=== PATIENT | female | born 1935 | race Caucasian/White ===

== ENCOUNTER 2017-12-16 18:54 | Inpatient (IN) | payer OTHER, MEDICAID ==
[2017-12-16] MEDS ORDERED: NS 1000 ML 1,000 ML IV ONE (19:10)
[2017-12-16] MEDS ORDERED: NS 1000 ML 1,000 ML ONE ×2 (19:13→20:39)
--- NOTE | 2017-12-16 19:21 | RAD ---
Examination: Portable AP chest History: Dehydration, weakness Comparison reference 12/10/2015 Findings: Continued normal heart size with grossly clear lungs and pleural spaces. Metallic clothing artifacts are projected over the right lower chest. No pneumothorax or pleural fluid. Impression: No acute process identified. Reported By:
[2017-12-16 19:29] LABS: BASOPHILS # (AUTO) 0.1 X10^3/uL (0.0-0.1); BASOPHILS % (AUTO) 0.4 % (0.2-1.0); EOSINOPHILS # (AUTO) 0.2 x10^3/uL (0.0-0.2); EOSINOPHILS % (AUTO) 0.8 % (0.9-2.9); HEMATOCRIT 46.7 % (36.0-47.0); HEMOGLOBIN 16.3 g/dL (12.0-16.0); LYMPHOCYTES # (AUTO) 1.6 X10^3/uL (1.3-2.9); LYMPHOCYTES % (AUTO) 8.7 % (21.0-51.0); MEAN CORPUSCULAR HEMOGLOBIN 30.5 pg (27.0-34.0); MEAN PLATELET VOLUME 7.6 fL (7.4-11.0); MONOCYTES # (AUTO) 1.9 x10^3/uL (0.3-0.8); MONOCYTES % (AUTO) 10.4 % (0.0-13.0); NEUTROPHILS # (AUTO) 14.4 x10^3/uL (2.2-4.8); NEUTROPHILS % (AUTO) 79.7 % (42.0-75.0); PLATELET COUNT 416 X10^3/uL (150.0-450.0); RED BLOOD COUNT 5.37 X10^6/uL (3.5-5.4); WHITE BLOOD COUNT 18.1 X10^3/uL (3.6-10.0)
[2017-12-16 19:44] LABS: ABG BASE EXCESS -6.8 mmol/L (-2.0-2.0)
[2017-12-16 19:45] LABS: ABG HCO3 17.3 mmol/L (22-26)
[2017-12-16 19:46] LABS: ABG ALLEN TEST POS
[2017-12-16 19:49] LABS: ALANINE AMINOTRANSFERASE 34 Units/L (12-78); ALBUMIN 3.9 g/dL (3.4-5.0); ALKALINE PHOSPHATASE 67 Units/L (46-116); ASPARTATE AMINO TRANSFERASE 20 Units/L (15-37); BLOOD UREA NITROGEN 69 mg/dL (7-18); CALCIUM 9.9 mg/dL (8.5-10.1); CHLORIDE 95 mmol/L (98-107); COR NA(FOR HYPERGLY) 127 mmol/L (136-145); CREATINE KINASE 241 Units/L (26-192); CREATINE KINASE MB 2.3 ng/mL (0-4.0); CREATININE 2.08 mg/dL (0.55-1.02); TOTAL PROTEIN 7.8 g/dL (6.4-8.2); TROPONIN I < 0.02 ng/mL (0-1.5); eGFR BLACK RACES 29 (>60); eGFR NON BLACK RACES 24 (>60)
[2017-12-16 19:50] LABS: SODIUM 125 mmol/L (136-145)
--- NOTE | 2017-12-16 20:17 | DR.GENAD ---
HPI - PCP Primary Care Physician: [email or web address] - HPI Comment HPI Comment: PATIENT HAD RECENT GASTROENTERITIS WITH POOR ORAL INTAKE. THIS HAS CAUSE HER TO BE INCREASING WEAK. TODAY CONFUSE WELL. NO FEVER REPORTED. - Complaint/Symptoms Chief Complaint Doctors Comments: HERE FROM [place] WITH GENERALIZE WEAKNESS AND AMS FOR ONE DAY. Chief Complaint:: weakness - Nurses notes reviewed Nurses Notes Review: Yes - Source History Provided: Patient, Family Member, Senior Care - Mode of Arrival Mode of Arrival: Wheelchair - Timing Onset of Chief Complaint: 12/16/17 Came on: Suddenly - Duration Duration: Constant Duration: Days - Severity Severity: Moderate PMH - PMH Past Medical History: Yes Past Medical History: Anemia, Arthritis, Asthma, CHF, Coronary Artery Disease, CVA, Depression, Diabetes, Dyslipidemia, GERD, Hypertension, Hypothyroidism Past Surgical History: Yes Surgical History: Other - Family History History of Family Medical Conditions: Yes Family Medical History: Hypertension - Social History Does any household member use tobacco: No Alcohol Use: None Do you use any recreational Drugs:: No Lives With: Family Lives Where: Home - infectious screening In the last 2 months have you had wt loss of >10#?: NO Have you had fever, night sweats or hemotysis?: No Have you traveled outside the country in the last 6 months?: No Isolation: Standard ROS - Review of Systems Constitutional: Weakness, Fatigue. negative: Chills, Fever Eyes: negative: Eye Pain, Discharge ENTM: negative: Ear Pain, Nose Discharge, Nose Congestion, Throat Pain Respiratoy: Moist Cough, Short of Breath, Wheezing. negative: Hemoptysis Cardiovascular: Chest Pain Gastrointestinal/Abdominal: Abdominal Pain Genitourinary: Discharge Neurological: No Symptoms Reported, Headache, Weakness, Dizziness, Other (AMS) Musculoskeletal: Joint Pain, Muscle Pain Integumentary: Dryness. negative: Juandice Hematologic/Lymphatic: Easy Bleeding, Easy Bruising Endocrine: No Symptoms Reported All Other Systems: Reviewed and Negative PE - Vital Signs Vitals: Temperature 96.7 F Pulse Rate [Left Brachial] 80 Pulse Rate 105 Respiratory Rate 18 Blood Pressure [Right Arm] 182/81 Blood Pressure [Left Arm] 171/73 Blood Pressure 159/60 O2 Sat by Pulse Oximetry 98 - General Limitations: Altered Mental Status General Appearance: Alert - Head Head Exam: Normal Inspection - Eyes Eye exam: PERRL, EOMI. negative: Scleral Icterus, Conjunctival Injection - ENT ENT Exam: Normal External Ear Exam External Ear Exam: Normal External Inspection TM/Canal Exam: Bilateral Normal Nose Exam: Normal Nose Exam Mouth Exam: Normal Inspection Throat Exam: Normal Inspection - Neck Neck Exam: Trachea Midline - Chest Chest Inspection: Symmetric Chest Wall Rise - Respiratory Respiratory Exam: Normal Lung Sounds Bilat Respiratory Exam: Bilateral Rhonchi, Lower Rhonchi - Cardiovascular Cardiovascular Exam: Regular Rate, Normal Rhythm, Normal Heart Sounds - Abdominal Exam Abdominal Exam: Normal Bowel Sounds, Soft. negative: Tenderness - Extremities Extremities Exam: Normal Capillary Refill. negative: Edema, Calf Tenderness - Back Back Exam: Paraspinal Tenderness - Neurologic Neurological Exam: Alert. negative: Oriented X3, Motor Sensory Deficit - Psychiatric Psychiatric Exam: Normal Affect, Normal Mood - Skin Skin Exam: Normal Color MDM - Additional Information Additional Information Obtained From: Family - Differential Diagnosis Differential Diagnosis: AMS, CVA, SEPSIS, UTI, DEHYDRATION Course - Treatment Treatment: SEE ORDERS. IV FLUID AND IV R INSULIN AND D50 FOR HYPERKALEMIA - Reevaluation 1st: Improved (POTASIUM DECREASING.) - Consultation Consultation Comments: DISCUSS PATIENT WITH DR. MAZA. HE WILL ADMIT PATIENT. - Education/Counseling Education/Counseling: Patient, Family, Education Educated On: Diagnosis ROR - Labs Reviewed Laboratory Results Reviewed?: Yes Result Diagrams: 12/17/17 05:43 12/17/17 05:43 Laboratory: WBC 18.1 X10^3/uL (3.6-10.0) H 12/16/17 19:22 RBC 5.37 X10^6/uL (3.5-5.4) 12/16/17 19:22 Hgb 16.3 g/dL (12.0-16.0) H 12/16/17 19:22 Hct 46.7 % (36.0-47.0) 12/16/17 19:22 MCV 87.0 fL (80.0-100.0) 12/16/17 19:22 MCH 30.5 pg (27.0-34.0) 12/16/17 19:22 MCHC 35.0 g/dL (33.0-35.0) 12/16/17 19:22 RDW 14.0 % (11.6-16.5) 12/16/17 19:22 Plt Count 416 X10^3/uL (150.0-450.0) 12/16/17 19: MPV 7.6 fL (7.4-11.0) 12/16/17 19: Neut % (Auto) 79.7 % (42.0-75.0) H 12/16/17 19: Lymph % (Auto) 8.7 % (21.0-51.0) L 12/16/17: [place] % (Auto) 10.4 % (0.0-13.0) 12/16/17: Eos % (Auto) 0.8 % (0.9-2.9) L 12/16/17: Baso % (Auto) 0.4 % (0.2-1.0) 12/16/17: Neut # (Auto) 14.4 x10^3/uL (2.2-4.8) H 12/16/17 19: Lymph # (Auto) 1.6 X10^3/uL (1.3-2.9) 12/16/17: [place] # (Auto) 1.9 x10^3/uL (0.3-0.8) H 12/16/17: Eos # (Auto) 0.2 x10^3/uL (0.0-0.2) 12/16/17: Baso # (Auto) 0.1 X10^3/uL (0.0-0.1) 12/16/17: Absolute Nucleated RBC 0.0 /100WBC 12/16/17: Sample Site Left radial 12/16/17 19:40 ABG pH 7.370 (7.35-7.45) 12/16/17 19:40 ABG pCO2 30.0 mmHg (35.0-45.0) L 12/16/17 19:40 ABG pO2 93.0 mmHg (80.0-100.0) 12/16/17 19:40 ABG HCO3 17.3 mmol/L (22-26) L* 12/16/17 19:40 ABG O2 Saturation 97.0 % (90-100) 12/16/17 19:40 ABG Base Excess -6.8 mmol/L (-2.0-2.0) L 12/16/17 19:40 Regan Test Pos 12/16/17 19:40 A-a Gradient 19.0 mmHg 12/16/17 19:40 FiO2 21.000 12/16/17 19:40 Blood Gas Comments Mary well jts 12/16/17 19:40 Sodium 125 mmol/L (136-145) L* 12/16/17 19:22 Corrected Sodium 127 mmol/L (136-145) L 12/16/17 19:22 Potassium 7.1 mmol/L (3.5-5.1) H* 12/16/17 19:22 Chloride 95 mmol/L (98-107) L 12/16/17 19:22 Carbon Dioxide 18.0 mmol/L (21-32) L 12/16/17 19:22 BUN 69 mg/dL (7-18) H 12/16/17 19:22 Creatinine 2.08 mg/dL (0.55-1.02) H 12/16/17 19:22 Est GFR (MDRD) Af Amer 29 (>60) L 12/16/17 19:22 Est GFR (MDRD) Non-Af 24 (>60) L 12/16/17 19:22 Glucose 195 mg/dL (65-99) H 12/16/17 19:22 Lactic Acid 2.7 mmol/L (0.4-2.0) H 12/16/17 20:05 Calcium 9.9 mg/dL (8.5-10.1) 12/16/17 19:22 Corrected Calcium TNP 12/16/17 19:22 Total Bilirubin 0.40 mg/dL (0.2-1.0) 12/16/17 19:22 AST 20 Units/L (15-37) 12/16/17 19:22 ALT 34 Units/L (12-78) 12/16/17 19:22 Alkaline Phosphatase 67 Units/L (46-116) 12/16/17 19:22 Creatine Kinase 241 Units/L (26-192) H 12/16/17 19:22 CK-MB (CK-2) 2.3 ng/mL (0-4.0) 12/16/17 19:22 CK/CKMB % Calc 1.0 % (<4) 12/16/17 19:22 Troponin I < 0.02 ng/mL (0-1.5) 12/16/17 19:22 Total Protein 7.8 g/dL (6.4-8.2) 12/16/17 19: Albumin 3.9 g/dL (3.4-5.0) 12/16/17 19: Globulin 3.9 g/dL (2.5-4.5) 12/16/17: Albumin/Globulin Ratio 1.0 Ratio (1.1-2.1) L 12/16/17:22 Specimen Type Catherized urine 12/16/17 20:38 Urine Color Yellow (YELLOW) 12/16/17 20:38 Urine Appearance Slightly hazy (CLEAR) 12/16/17 20:38 Urine pH 6.5 (5.0 - 8.0) 12/16/17 20:38 Ur Specific [place] 1.015 (1.000-1.030) 12/16/17 20:38 Urine Protein 2+ (NEGATIVE) 12/16/17 20:38 Urine Glucose (UA) 3+ (NEGATIVE) 12/16/17 20:38 Urine Ketones Negative (NEGATIVE) 12/16/17 20:38 Urine Occult Blood Negative (NEGATIVE) 12/16/17 20:38 Urine Nitrite Negative (NEGATIVE) 12/16/17 20:38 Urine Bilirubin Negative (NEGATIVE) 12/16/17 20:38 Urine Urobilinogen Normal (NORMAL) 12/16/17 20:38 Ur Leukocyte Esterase 2+ (NEGATIVE) 12/16/17 20:38 Urine RBC None seen /HPF (NONE SEEN) 12/16/17 20:38 Urine WBC 6-8 /HPF (NONE SEEN) 12/16/17 20:38 Ur Squamous Epith Cells Moderate /HPF (NEGATIVE) 12/16/17 20:38 Urine Bacteria 1+ /HPF (NEGATIVE) 12/16/17 20:38 Ur Culture Indicated? Yes/culture set up 12/16/17 20:38 Acetone, Semi-Quant Negative (NEGATIVE) 12/16/17 19:22 - XRAY XRAY Interpreted by: Radiologist XRAY Findings: REPORT DISCUSS WITH FAMILY. - EKG Rhythm: NSR - Diagnosis Discharge Problem: Hyperkalemia, Hyponatremia, Dehydration, Renal insufficiency Hypertension Qualifiers: Hypertension type: essential hypertension Qualified Code(s): I10 - Essential ( primary) hypertension - Discharge Plan Disposition: 09 ADMITTED INPATIENT Condition: Stable - Follow ups/Referrals - Instructions
--- NOTE | 2017-12-16 20:34 | CT ---
CT HEAD WITHOUT CONTRAST CLINICAL HISTORY: 82-year-old female acting a abnormally. COMPARISON: CT head 11/04/2015. TECHNIQUE: Multiple, non-contrasted axial CT images were obtained from the skull base to the cranial vertex. Coronal and sagittal reformats were performed. FINDINGS: There are no abnormal intra- or extra-axial fluid collections, midline shift, or mass effec t. Rice-white differentiation is normal. Partially empty sella. Global cortical involutional changes are present that are advanced for the patient's stated age. Re-demonstration of large cystic structur e within the posterior fossa with near-complete dysgenesis of the cerebellum. The ventricular system is mildly enlarged but commensurate with the degree of sulcal prominence. Periventricular and suprave ntricular white matter hypodensity is present that is nonspecific in appearance, but most likely to r epresent microvascular ischemic changes. Severe atherosclerotic vascular calcification is present wit hin the carotid siphons and distal vertebral arteries. The paranasal sinuses, mastoid air cells, and tympanic spaces are clear. Bilateral lens implants. IMPRESSION: 1. No definite evidence of an acute intracranial process. If clinical concern persists for acute stro ke, consider MRI/MRA brain. 2. Moderate microvascular white matter ischemic changes, with associated volume loss. 3. 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 Reported By:
[2017-12-16] MEDS: NS 1000 ML 1,000 ML IV SCH (20:39)
[2017-12-16 20:51] LABS: BILIRUBIN,URINE NEGATIVE (NEGATIVE); BLOOD/HEMOGLOBIN,URINE NEGATIVE (NEGATIVE); GLUCOSE, URINE 3+ (NEGATIVE); KETONES,URINE NEGATIVE (NEGATIVE); LEUKOCYTE ESTERASE ,URINE 2+ (NEGATIVE); NITRITES,URINE NEGATIVE (NEGATIVE); PH,URINE 6.5 (5.0 - 8.0); PROTEIN,URINE 2+ (NEGATIVE); UROBILINOGEN,URINE NORMAL (NORMAL)
[2017-12-16 21:01] LABS: APPEARANCE,URINE SLIGHTLY HAZY (CLEAR); COLOR,URINE YELLOW (YELLOW); RBC,URINE NONE SEEN /HPF (NONE SEEN)
[2017-12-16 21:02] LABS: BACTERIA,URINE 1+ /HPF (NEGATIVE); SQUAMOUS EPITHELIAL CELL,UR MODERATE /HPF (NEGATIVE)
[2017-12-16] MEDS ORDERED: D50W ABBOJECT SYR IV ONE (21:03)
[2017-12-16] MEDS ORDERED: HumuLIN R IV ONE (21:05)
[2017-12-16] MEDS ORDERED: HumuLIN R ONE (21:08)
[2017-12-16] MEDS ORDERED: D50W ABBOJECT SYR ONE (21:08)
[2017-12-16] MEDS ORDERED: ROCEPHIN 1 GM IV PREMIX 1 GM/50 ML IV.SOLN. IV ONE ×2 (21:47→22:06)
[2017-12-16] MEDS: ULTRAM PO PRN (23:34)
[2017-12-17 01:10] VITALS: BMI 25.4
[2017-12-17] MEDS: NS 1000 ML 1,000 ML IV SCH ×4 (05:20→17:47)
[2017-12-17] MEDS: APRESOLINE TAB 25 MG PO SCH ×3 (05:23→23:59)
[2017-12-17 05:57] LABS: BASOPHILS # (AUTO) 0.1 X10^3/uL (0.0-0.1); BASOPHILS % (AUTO) 0.6 % (0.2-1.0); EOSINOPHILS # (AUTO) 0.2 x10^3/uL (0.0-0.2); EOSINOPHILS % (AUTO) 1.2 % (0.9-2.9); HEMATOCRIT 40.9 % (36.0-47.0); HEMOGLOBIN 14.4 g/dL (12.0-16.0); LYMPHOCYTES # (AUTO) 2.1 X10^3/uL (1.3-2.9); LYMPHOCYTES % (AUTO) 13.9 % (21.0-51.0); MEAN CORPUSCULAR HEMOGLOBIN 30.6 pg (27.0-34.0); MEAN CORPUSCULAR HGB CONC 35.2 g/dL (33.0-35.0); MEAN PLATELET VOLUME 7.5 fL (7.4-11.0); MONOCYTES % (AUTO) 13.6 % (0.0-13.0); NEUTROPHILS # (AUTO) 10.5 x10^3/uL (2.2-4.8); NEUTROPHILS % (AUTO) 70.7 % (42.0-75.0); PLATELET COUNT 323 X10^3/uL (150.0-450.0); RED BLOOD COUNT 4.71 X10^6/uL (3.5-5.4); RED CELL DISTRIBUTION WIDTH 14.2 % (11.6-16.5); WHITE BLOOD COUNT 14.9 X10^3/uL (3.6-10.0)
[2017-12-17 06:18] LABS: ALANINE AMINOTRANSFERASE 31 Units/L (12-78); ALBUMIN 3.2 g/dL (3.4-5.0); ALKALINE PHOSPHATASE 54 Units/L (46-116); ASPARTATE AMINO TRANSFERASE 27 Units/L (15-37); BLOOD UREA NITROGEN 57 mg/dL (7-18); CALCIUM 8.6 mg/dL (8.5-10.1); CARBON DIOXIDE 18.3 mmol/L (21-32); CHLORIDE 102 mmol/L (98-107); CKMB % 0.6 % (<4); COR CA(FOR HYPOALB) 9.2 mg/dL (8.5-10.1); COR NA(FOR HYPERGLY) 131 mmol/L (136-145); CREATINE KINASE 647 Units/L (26-192); CREATINE KINASE MB 3.9 ng/mL (0-4.0); CREATININE 1.31 mg/dL (0.55-1.02); MAGNESIUM 2.2 mg/dL (1.7-2.9); SODIUM 131 mmol/L (136-145); TOTAL PROTEIN 6.6 g/dL (6.4-8.2); TROPONIN I < 0.02 ng/mL (0-1.5); eGFR BLACK RACES 50 (>60); eGFR NON BLACK RACES 41 (>60)
[2017-12-17] MEDS: ROCEPHIN VIAL 1 GM 1 GM in NS 100 ML IV + SPIKE MINIBAG* 100 ML IV SCH ×3 (09:04→15:42)
[2017-12-17] MEDS ORDERED: ZOFRAN TAB 4 MG PO PRN (09:35)
[2017-12-17] MEDS ORDERED: ULTRAM PO PRN (09:35)
[2017-12-17] MEDS ORDERED: GLUCOPHAGE ONE ×2 (10:22→20:02)
[2017-12-17] MEDS: ARTIFICIAL TEARS DROPS EACHEYE SCH ×3 (10:43→22:37)
[2017-12-17] MEDS: SYNTHROID 50 mcg TAB PO SCH (10:44)
[2017-12-17] MEDS: CATAPRES TAB 0.3 MG PO SCH (10:44)
[2017-12-17] MEDS: VITAMIN C PO SCH ×2 (10:44→20:59)
[2017-12-17] MEDS: COLACE CAP 100 MG PO SCH ×2 (10:44→20:58)
[2017-12-17] MEDS: TRICOR TAB 48 MG PO SCH (10:44)
[2017-12-17] MEDS: CITRACAL + VITAMIN D PO SCH (10:44)
[2017-12-17] MEDS: GLUCOPHAGE PO SCH ×2 (10:44→20:58)
[2017-12-17] MEDS: JANUVIA PO SCH (10:45)
[2017-12-17] MEDS: MIRALAX POWDER (1 DOSE 17GM) PO SCH (10:45)
[2017-12-17] MEDS: NORVASC TAB 5 MG PO SCH (10:45)
[2017-12-17] MEDS: MYLICON TAB 80 MG CHEW PO SCH ×2 (10:45→20:59)
[2017-12-17 11:34] LABS: CKMB % 0.6 % (<4); CREATINE KINASE 529 Units/L (26-192); CREATINE KINASE MB 3.3 ng/mL (0-4.0); TROPONIN I < 0.02 ng/mL (0-1.5)
[2017-12-17] MEDS: CARDIZEM SR 120 MG PO SCH (20:59)
[2017-12-17] MEDS: LIPITOR TAB 20 MG PO SCH (20:59)
[2017-12-17] MEDS: LEVEMIR SC SCH (21:00)
[2017-12-17] MEDS: SNACK - Diabetic Appropriate PO SCH (21:33)
[2017-12-17] MEDS: TRAVATAN Z EACHEYE SCH (21:33)
[2017-12-18] MEDS: NS 1000 ML 1,000 ML IV SCH ×6 (03:00→23:06)
[2017-12-18] MEDS: CATAPRES TAB 0.3 MG PO SCH ×3 (04:12→20:40)
[2017-12-18] MEDS: QUESTRAN PO SCH ×2 (04:12→08:41)
[2017-12-18] MEDS: ARTIFICIAL TEARS DROPS EACHEYE SCH ×3 (05:15→23:06)
[2017-12-18] MEDS: APRESOLINE TAB 25 MG PO SCH ×3 (05:15→20:58)
[2017-12-18 05:38] LABS: BASOPHILS % (AUTO) 0.4 % (0.2-1.0); EOSINOPHILS # (AUTO) 0.1 x10^3/uL (0.0-0.2); EOSINOPHILS % (AUTO) 1.3 % (0.9-2.9); HEMATOCRIT 40.3 % (36.0-47.0); HEMOGLOBIN 13.8 g/dL (12.0-16.0); LYMPHOCYTES # (AUTO) 1.6 X10^3/uL (1.3-2.9); MEAN CORPUSCULAR HEMOGLOBIN 30.4 pg (27.0-34.0); MEAN CORPUSCULAR HGB CONC 34.1 g/dL (33.0-35.0); MEAN CORPUSCULAR VOLUME 89.1 fL (80.0-100.0); MEAN PLATELET VOLUME 8.1 fL (7.4-11.0); MONOCYTES # (AUTO) 1.4 x10^3/uL (0.3-0.8); MONOCYTES % (AUTO) 13.5 % (0.0-13.0); NEUTROPHILS # (AUTO) 7.4 x10^3/uL (2.2-4.8); NEUTROPHILS % (AUTO) 69.8 % (42.0-75.0); PLATELET COUNT 311 X10^3/uL (150.0-450.0); RED BLOOD COUNT 4.52 X10^6/uL (3.5-5.4); RED CELL DISTRIBUTION WIDTH 13.9 % (11.6-16.5); WHITE BLOOD COUNT 10.6 X10^3/uL (3.6-10.0)
[2017-12-18 06:03] LABS: ALANINE AMINOTRANSFERASE 26 Units/L (12-78); ALBUMIN 2.9 g/dL (3.4-5.0); ALKALINE PHOSPHATASE 53 Units/L (46-116); ASPARTATE AMINO TRANSFERASE 23 Units/L (15-37); BLOOD UREA NITROGEN 32 mg/dL (7-18); CALCIUM 7.9 mg/dL (8.5-10.1); CARBON DIOXIDE 19.4 mmol/L (21-32); CHLORIDE 103 mmol/L (98-107); COR CA(FOR HYPOALB) 8.8 mg/dL (8.5-10.1); COR NA(FOR HYPERGLY) 133 mmol/L (136-145); SODIUM 132 mmol/L (136-145); TOTAL PROTEIN 6.1 g/dL (6.4-8.2); eGFR BLACK RACES > 60 (>60); eGFR NON BLACK RACES > 60 (>60)
[2017-12-18] MEDS ORDERED: GLUCOPHAGE ONE ×2 (08:10→19:48)
[2017-12-18] MEDS: ROCEPHIN VIAL 1 GM 1 GM in NS 100 ML IV + SPIKE MINIBAG* 100 ML IV SCH (08:40)
[2017-12-18] MEDS: SYNTHROID 50 mcg TAB PO SCH (08:42)
[2017-12-18] MEDS: GLUCOPHAGE PO SCH ×2 (08:43→20:40)
[2017-12-18] MEDS: CITRACAL + VITAMIN D PO SCH (08:43)
[2017-12-18] MEDS: CARDIZEM SR 120 MG PO SCH ×2 (08:43→20:40)
[2017-12-18] MEDS: MYLICON TAB 80 MG CHEW PO SCH ×2 (08:43→20:40)
[2017-12-18] MEDS: JANUVIA PO SCH (08:43)
[2017-12-18] MEDS: TRICOR TAB 48 MG PO SCH (08:43)
[2017-12-18] MEDS: NORVASC TAB 5 MG PO SCH (08:43)
[2017-12-18] MEDS: COLACE CAP 100 MG PO SCH ×2 (08:43→20:39)
[2017-12-18] MEDS: VITAMIN C PO SCH ×2 (08:43→20:40)
[2017-12-18] MEDS: LEVEMIR SC SCH ×2 (08:44→20:34)
[2017-12-18] MEDS: MIRALAX POWDER (1 DOSE 17GM) PO SCH (08:44)
[2017-12-18] MEDS: SNACK - Diabetic Appropriate PO SCH (20:34)
[2017-12-18] MEDS: LIPITOR TAB 20 MG PO SCH (20:40)
[2017-12-18] MEDS: TRAVATAN Z EACHEYE SCH (20:41)
[2017-12-18] MEDS ORDERED: COUMADIN TAB 5 MG PO SCH (21:00)
[2017-12-19] MEDS: ULTRAM PO PRN ×3 (02:31→22:10)
[2017-12-19] MEDS: ARTIFICIAL TEARS DROPS EACHEYE SCH ×3 (05:16→22:09)
[2017-12-19] MEDS: APRESOLINE TAB 25 MG PO SCH ×3 (05:16→22:09)
[2017-12-19] MEDS: NS 1000 ML 1,000 ML IV SCH ×4 (05:16→20:12)
[2017-12-19 05:26] LABS: BASOPHILS # (AUTO) 0.1 X10^3/uL (0.0-0.1); BASOPHILS % (AUTO) 0.7 % (0.2-1.0); EOSINOPHILS # (AUTO) 0.2 x10^3/uL (0.0-0.2); EOSINOPHILS % (AUTO) 2.4 % (0.9-2.9); HEMATOCRIT 36.5 % (36.0-47.0); HEMOGLOBIN 12.7 g/dL (12.0-16.0); LYMPHOCYTES # (AUTO) 2.1 X10^3/uL (1.3-2.9); LYMPHOCYTES % (AUTO) 20.6 % (21.0-51.0); MEAN CORPUSCULAR HEMOGLOBIN 30.3 pg (27.0-34.0); MEAN CORPUSCULAR HGB CONC 34.7 g/dL (33.0-35.0); MEAN CORPUSCULAR VOLUME 87.4 fL (80.0-100.0); MEAN PLATELET VOLUME 7.8 fL (7.4-11.0); MONOCYTES # (AUTO) 1.5 x10^3/uL (0.3-0.8); MONOCYTES % (AUTO) 14.7 % (0.0-13.0); NEUTROPHILS # (AUTO) 6.3 x10^3/uL (2.2-4.8); NEUTROPHILS % (AUTO) 61.6 % (42.0-75.0); PLATELET COUNT 320 X10^3/uL (150.0-450.0); RED BLOOD COUNT 4.17 X10^6/uL (3.5-5.4); RED CELL DISTRIBUTION WIDTH 13.8 % (11.6-16.5); WHITE BLOOD COUNT 10.2 X10^3/uL (3.6-10.0)
[2017-12-19 05:59] LABS: ALANINE AMINOTRANSFERASE 22 Units/L (12-78); ALBUMIN 2.6 g/dL (3.4-5.0); ALKALINE PHOSPHATASE 45 Units/L (46-116); ASPARTATE AMINO TRANSFERASE 18 Units/L (15-37); BLOOD UREA NITROGEN 19 mg/dL (7-18); CALCIUM 7.4 mg/dL (8.5-10.1); CARBON DIOXIDE 18.9 mmol/L (21-32); CHLORIDE 104 mmol/L (98-107); COR CA(FOR HYPOALB) 8.5 mg/dL (8.5-10.1); CREATININE 0.72 mg/dL (0.55-1.02); SODIUM 134 mmol/L (136-145); TOTAL PROTEIN 5.5 g/dL (6.4-8.2); eGFR BLACK RACES > 60 (>60); eGFR NON BLACK RACES > 60 (>60)
[2017-12-19] MEDS ORDERED: GLUCOPHAGE ONE ×2 (08:08→21:56)
[2017-12-19] MEDS: ROCEPHIN VIAL 1 GM 1 GM in NS 100 ML IV + SPIKE MINIBAG* 100 ML IV SCH (08:54)
[2017-12-19] MEDS: SYNTHROID 50 mcg TAB PO SCH (08:55)
[2017-12-19] MEDS: QUESTRAN PO SCH (08:55)
[2017-12-19] MEDS: MIRALAX POWDER (1 DOSE 17GM) PO SCH (08:55)
[2017-12-19] MEDS: VITAMIN C PO SCH ×2 (08:56→22:08)
[2017-12-19] MEDS: COLACE CAP 100 MG PO SCH ×2 (08:56→22:06)
[2017-12-19] MEDS: CARDIZEM SR 120 MG PO SCH ×2 (08:56→22:05)
[2017-12-19] MEDS: JANUVIA PO SCH (08:56)
[2017-12-19] MEDS: TRICOR TAB 48 MG PO SCH (08:56)
[2017-12-19] MEDS: GLUCOPHAGE PO SCH ×2 (08:56→22:07)
[2017-12-19] MEDS: CATAPRES TAB 0.3 MG PO SCH ×2 (08:56→22:06)
[2017-12-19] MEDS: NORVASC TAB 5 MG PO SCH (08:56)
[2017-12-19] MEDS: CITRACAL + VITAMIN D PO SCH (08:56)
[2017-12-19] MEDS: LEVEMIR SC SCH ×2 (08:57→22:07)
[2017-12-19] MEDS: MYLICON TAB 80 MG CHEW PO SCH ×2 (08:57→22:08)
--- NOTE | 2017-12-19 15:48 | DR.H&P ---
H&P - History & Physical for Day of: H&P Date: 12/16/17 - Chief Complaint Chief Complaint: ALTERED MENTAL STATUS, GENERALIZED WEAKNESS - Allergies Allergies/Adverse Reactions: Allergies Allergy/AdvReac Type Severity Reaction Status Date / Time tuberculin,PPD,multi-puncture Allergy Verified 12/16/17 20:21 - History of Present Illness History of Present Illness: IS A 82 YEAR OLD PATIENT OF OURS WHO RESIDES AT [facility]. SHE PRESENTED TO THE ER FROM THE CARE HOME WITH STAFF REPORTING THAT PATIENT HAS HAD GENERALIZED WEAKNESS AND ALTERED MENTAL STATUS FOR ONE DAY. STAFF REPORTS THAT PATIENT RECENTLY HAD GASTROENTERITIS AND HAS HAD DECREASED ORAL INTAKE. ASSOCIATED SYMPTOMS INCLUDE FATIGUE, COUGH, AND SHORTNESS OF BREATH. ON ARRIVAL TO THE ER, VITALS WERE 96.7- 105-16-96%-159/60. LABS WERE OBTAINED. ABNORMAL LAB VALUES INCLUDE THE FOLLOWING WBC 10.2, INR 1.59, SODIUM 134, CARBON DIOXIDE 18.9, BUN 19, CALCIUM 7.4, ALK PHOS 45, TOTAL PROTEIN 5.5, ALBUMIN 2.6. URINALYSIS REVEALS WBC 5-8, RBC NONE, LEUKOCYTES 2+, BACTERIA 1+, PROTEIN 2+. AN ABG WAS OBTAINED AND REVEALED PH 7.370, PC02 30, P02 93, HC03 17.3, BASE EXCESS -6.8. CHEST XRAY OBTAINED AND REVEALED NO ACUTE CHEST PROCESS IDENTIFIED. BRAIN CT REPORTED NO DEFINITE EVIDENCE OF AN ACUTE INTRACRANIAL PROCESS. MODERATED MICROVASCULAR WHITE MATTER ISCHEMIC CHANGES, WITH ASSOCIATED VOLUME LOSS. STABLE, CHRONIC CYSTIC LESION WITHIN THE POSTERIOR CREANIAL FOSSA WITH NEAR COMPLETE DYSGENESIS OF THE CEREBELLUM, LIKELY ARACHNOID CYST. SHE WAS STARTED ON NORMAL SALINE AT 150ML/HR AND ROCEPHIN 1GM IV DAILY. WE PLAN TO FOLLOW UP WITH AM LABS AND CONTINUE TO MONITOR PATIENT. - Past Medical History Past Medical History: Anemia, Arthritis, Asthma, CHF, Coronary Artery Disease, CVA, Depression, Diabetes, Dyslipidemia, GERD, Hypertension, Hypothyroidism Additional Medical History: DVT, Sleep Apnea, Depression, Chronic Sinusitis, Allergic Rhinitis, Constipation, Edema, UTI's, Pneumonia, Arthritis, Cataracts, Osteoporosis, Glaucoma, Ear Infections, Gastrointestinal Ulcer, Cardiac Arrhythmia, Muscle Weakness, Osteoporsis, Restless leg syndrome - Past Surgical History Surgical History: Other Additional Surgical History: Sinus surgery - Family History Family Medical History: Hypertension - Social History Does any household member use tobacco: No Alcohol Use: None Drug Use: None - Medications Home Medications: Aluminum & Magnesium Hydroxide [MAALOX or MYLANTA SUSP *] 30 ml PO Q4H PRN 12/16 [History Confirmed 12/16/17] Amlodipine Besylate [NORVASC 5 MG *] 5 mg PO DAILY 12/16/17 [History Confirmed 12/16/17] Fenofibrate [Tricor Tab 48 mg] 54 mg PO DAILY 12/16/17 [History Confirmed ] Lisinopril [Lisinopril] 1 tab PO BID 12/16/17 [History Confirmed 12/16/17] Ondansetron HCl [Zofran Tab 4 mg] 4 mg PO Q8H PRN 12/16/17 [History Confirmed ] Venlafaxine HCl Ext Rel [Effexor Xr 37.5 mg Cap] 37.5 mg PO DAILY 12/16/17 [ History Confirmed 12/16/17] Warfarin Sodium [Coumadin] 5 mg PO DAILY 12/16/17 [History Confirmed 12/16/17] - Review of Systems Constitutional: Weakness, Malaise Eyes: denies: No Symptoms Reported, See HPI, Pain, Vision Change, Conjunctivae Inflammation, Eyelid Inflammation, Redness, Other ENT: denies: No Symptoms Reported, See HPI, Ear Pain, Ear Discharge, Nose Pain, Nose Discharge, Nose Congestion, Mouth Pain, Mouth Swelling, Throat Pain, Throat Swelling, Other Respiratory: Cough, Shortness of Breath Cardiovascular: Chest Pain Gastrointestinal: Abdominal Pain Genitourinary: No Symptoms Reported. denies: See HPI, Dysuria, Frequency, Incontinence, Hematuria, Retention, Other Musculoskeletal: Other (GENERALIZED WEAKNESS ) Skin: No Symptoms Reported. denies: See HPI, Rash, Lesions, Jaundice, Bruising , Wound, Ecchymosis, Other Neurological: Weakness - Physical Exam Vital Signs: Temperature 97.5 F Pulse Rate [Left Brachial] 70 Pulse Rate 105 Respiratory Rate 23 Blood Pressure [Right Arm] 182/81 Blood Pressure [Left Arm] 162/70 Blood Pressure 159/60 O2 Sat by Pulse Oximetry 98 Oriented: Person Eyes: Normal. negative: Blurred Vision, Diplopia, Discharge, Pain, Redness, Photophobia, Other Ear: Normal. negative: Right, Left, Swelling, Ecchymosis, Hemotypanum, Abrasion , Laceration Nose: Normal Throat: Normal Respiratory: Wheezes Throughout Cardiovascular: Normal. negative: S3, S4, Murmur : Normal Auscultation: Bowel Sounds: Normal Palpation: Normal Tenderness: Suprapubic, Mild. negative: Rebound, Guarding, Rigidity Skin: Normal Musculoskeletal: Normal Psychiatric: Other (CONFUSION ) Mood Description: Calm Affect: Normal Speech Pattern: Appropriate - Assessment/Plan (1) Urinary tract infection Qualifiers: Urinary tract infection type: acute cystitis Hematuria presence: without hematuria Qualified Code(s): N30.00 - Acute cystitis without hematuria Status: Acute Plan: ROCEPHIN 1GM IV DAILY, NORMAL SALINE AT 150ML/HR, CONTINUE TO MONITOR (2) Dehydration Status: Acute Plan: NORMAL SALINE AT 150ML/HR, CONTINUE TO MONITOR (3) Hyperkalemia Status: Acute Plan: NORMAL SALINE AT 150ML/HR, CONTINUE TO MONITOR (4) Hyponatremia Status: Acute Plan: NORMAL SALINE AT 150ML/HR, CONTINUE TO MONITOR (5) Renal insufficiency Status: Acute Plan: NORMAL SALINE AT 150ML/HR, CONTINUE TO MONITOR
[2017-12-19] MEDS: SNACK - Diabetic Appropriate PO SCH (20:13)
[2017-12-19] MEDS: LIPITOR TAB 20 MG PO SCH (22:08)
[2017-12-19] MEDS: TRAVATAN Z EACHEYE SCH (22:09)
[2017-12-20] MEDS: TRAVATAN Z EACHEYE SCH (01:45)
[2017-12-20] MEDS: NS 1000 ML 1,000 ML IV SCH ×4 (03:39→17:01)
[2017-12-20] MEDS: ARTIFICIAL TEARS DROPS EACHEYE SCH ×2 (05:48→13:37)
[2017-12-20] MEDS: APRESOLINE TAB 25 MG PO SCH ×2 (05:48→13:45)
[2017-12-20 06:25] LABS: BASOPHILS # (AUTO) 0.1 X10^3/uL (0.0-0.1); BASOPHILS % (AUTO) 0.7 % (0.2-1.0); EOSINOPHILS # (AUTO) 0.3 x10^3/uL (0.0-0.2); EOSINOPHILS % (AUTO) 3.1 % (0.9-2.9); HEMOGLOBIN 12.6 g/dL (12.0-16.0); LYMPHOCYTES % (AUTO) 21.3 % (21.0-51.0); MEAN CORPUSCULAR HEMOGLOBIN 30.7 pg (27.0-34.0); MEAN CORPUSCULAR HGB CONC 35.1 g/dL (33.0-35.0); MEAN CORPUSCULAR VOLUME 87.3 fL (80.0-100.0); MEAN PLATELET VOLUME 7.9 fL (7.4-11.0); MONOCYTES # (AUTO) 1.1 x10^3/uL (0.3-0.8); MONOCYTES % (AUTO) 12.1 % (0.0-13.0); NEUTROPHILS # (AUTO) 5.8 x10^3/uL (2.2-4.8); NEUTROPHILS % (AUTO) 62.8 % (42.0-75.0); PLATELET COUNT 325 X10^3/uL (150.0-450.0); RED BLOOD COUNT 4.12 X10^6/uL (3.5-5.4); RED CELL DISTRIBUTION WIDTH 13.5 % (11.6-16.5); WHITE BLOOD COUNT 9.2 X10^3/uL (3.6-10.0)
[2017-12-20 06:27] LABS: ALANINE AMINOTRANSFERASE 20 Units/L (12-78); ALBUMIN 2.6 g/dL (3.4-5.0); ALKALINE PHOSPHATASE 48 Units/L (46-116); ASPARTATE AMINO TRANSFERASE 18 Units/L (15-37); BLOOD UREA NITROGEN 11 mg/dL (7-18); CALCIUM 7.3 mg/dL (8.5-10.1); CARBON DIOXIDE 20.5 mmol/L (21-32); CHLORIDE 104 mmol/L (98-107); COR CA(FOR HYPOALB) 8.4 mg/dL (8.5-10.1); COR NA(FOR HYPERGLY) 135 mmol/L (136-145); CREATININE 0.73 mg/dL (0.55-1.02); SODIUM 133 mmol/L (136-145); TOTAL PROTEIN 5.7 g/dL (6.4-8.2); eGFR BLACK RACES > 60 (>60); eGFR NON BLACK RACES > 60 (>60)
[2017-12-20] MEDS ORDERED: GLUCOPHAGE ONE (08:01)
[2017-12-20] MEDS: COLACE CAP 100 MG PO SCH (08:15)
[2017-12-20] MEDS: MIRALAX POWDER (1 DOSE 17GM) PO SCH (08:15)
[2017-12-20] MEDS: CATAPRES TAB 0.3 MG PO SCH (08:16)
[2017-12-20] MEDS: SYNTHROID 50 mcg TAB PO SCH (08:16)
[2017-12-20] MEDS: GLUCOPHAGE PO SCH (08:16)
[2017-12-20] MEDS: VITAMIN C PO SCH (08:16)
[2017-12-20] MEDS: TRICOR TAB 48 MG PO SCH (08:17)
[2017-12-20] MEDS: CITRACAL + VITAMIN D PO SCH (08:17)
[2017-12-20] MEDS: NORVASC TAB 5 MG PO SCH (08:17)
[2017-12-20] MEDS: JANUVIA PO SCH (08:17)
[2017-12-20] MEDS: QUESTRAN PO SCH (08:17)
[2017-12-20] MEDS: ROCEPHIN VIAL 1 GM 1 GM in NS 100 ML IV + SPIKE MINIBAG* 100 ML IV SCH (08:18)
[2017-12-20] MEDS: MYLICON TAB 80 MG CHEW PO SCH (08:18)
[2017-12-20] MEDS: CARDIZEM SR 120 MG PO SCH (08:18)
[2017-12-20] MEDS: LEVEMIR SC SCH (08:23)
[2017-12-20] MEDS ORDERED: EFFEXOR XR 37.5 MG CAP PO SCH (09:00)
--- NOTE | 2017-12-20 09:26 | RAD ---
HISTORY: Shortness of breath Study: Chest AP portable Comparison: 12/16/2017 Findings: The trachea is midline. The cardiac silhouette is unremarkable. The lungs are clear without focal i nfiltrate or effusion. The bony thorax is unremarkable. IMPRESSION: 1. No acute cardiopulmonary disease. Reported By:
--- NOTE | 2017-12-20 11:05 | PCM.PROG ---
Progress Note - Progress Note for Day of Date: 12/17/17 - Subjective Subjective: IS BEING TREATED FOR DEHYDRATION, HYPERKALEMIA, AND A URINARY TRACT INFECTION. TODAY, SHE IS LYING IN BED WITH EYES CLOSED. FAMILY AT BEDSIDE. PATIENT AWAKENS AND RESPONDS TO VERBAL STIMULI, BUT CONTINUES WITH CONFUSION. SHE IS NOTED WITH COMPLAINTS OF ABDOMINAL PAIN. ON EXAMINATION, HEART IS REGULAR IN RATE AND RHYTHM. BILATERAL LUNGS ARE NOTED WITH DIMINISHED LUNG SOUNDS THROUGHOUT. ABDOMEN IS ROUND, SOFT, AND NOTED WITH SUPRAPUBIC TENDERNESS ON PALPATION. NORMAL BOWEL SOUNDS NOTED IN ALL QUADRANTS. HER VITALS THIS MORNING ARE 97.0-87-28-97%-171/71. LABS WERE OBTAINED. ABNORMAL LAB VALUES INCLUDE THE FOLLOWING: WBC 14.9, INR 3.27, SODIUM 131, POTASSIUM 5.4, CARBON DIOXIDE 18.3, BUN 57, CREATININE 1.31, GLUCOSE 111, CREATINE KINASE 647, ALBUMIN 3.2. BLOOD CULTURES AND URINE CULTURES ARE PENDING. TODAY, WE WILL CONTINUE WITH CURRENT IV FLUIDS AND ANTIBIOTICS FOR URINARY TRACT INFECTION. WE PLAN TO FOLLOW UP WITH AM LABS AND CONTINUE TO MONITOR PATIENT. - Past Medical Family Social History Past Med/Fam/Surg Hx: No changes since H&P Allergies: Allergies tuberculin,PPD,multi-puncture Allergy (Verified 12/16/17 20:21) - Review of Systems ROS: No change since H&P - Vital Signs and I&O's Vital Signs: Temperature 97.8 F Pulse Rate [Left Brachial] 69 Pulse Rate 105 Respiratory Rate 17 Blood Pressure [Right Arm] 182/81 Blood Pressure [Left Arm] 132/87 Blood Pressure 159/60 O2 Sat by Pulse Oximetry 99 Intake and Output: Intake & Output 12/17/17 12/18/17 12/19/17 12/20/17 11:59 11:59 11:59 11:59 Intake Total 2105 4266 3926 5569 Output Total 825 3200 3900 5625 Balance 1280 1066 26 -56 - Physical Exam Oriented: Person Eyes: Normal. negative: Blurred Vision, Diplopia, Discharge, Pain, Redness, Photophobia, Other Ear: Normal. negative: Right, Left, Swelling, Ecchymosis, Hemotypanum, Abrasion , Laceration Nose: Normal Throat: Normal Respiratory: Diminished Cardiovascular: Normal. negative: S3, S4, Murmur : Normal Auscultation: Bowel Sounds: Normal Palpation: Normal Tenderness: Suprapubic, Mild. negative: Rebound, Guarding, Rigidity Skin: Normal Musculoskeletal: Normal Psychiatric: Other (CONFUSION ) Mood Description: Calm Affect: Normal Speech Pattern: Clear, Appropriate - Laboratory and Diagnostics Result Diagrams: 12/20/17 05:41 12/20/17 05:41 Labs: 12/16/17 20:38 Urine,Catheterized Urine Culture - Final 12/16/17 20:05 Blood Blood Culture - Preliminary 12/16/17 19:58 Blood Blood Culture - Preliminary Laboratory WBC 9.2 X10^3/uL (3.6-10.0) 12/20/17 05:41 RBC 4.12 X10^6/uL (3.5-5.4) 12/20/17 05:41 Hgb 12.6 g/dL (12.0-16.0) 12/20/17 05:41 Hct 36.0 % (36.0-47.0) 12/20/17 05:41 MCV 87.3 fL (80.0-100.0) 12/20/17 05:41 MCH 30.7 pg (27.0-34.0) 12/20/17 05:41 MCHC 35.1 g/dL (33.0-35.0) H 12/20/17 05:41 RDW 13.5 % (11.6-16.5) 12/20/17 05:41 Plt Count 325 X10^3/uL (150.0-450.0) 12/20/17 05:41 MPV 7.9 fL (7.4-11.0) 12/20/17 05:41 Neut % (Auto) 62.8 % (42.0-75.0) 12/20/17 05:41 Lymph % (Auto) 21.3 % (21.0-51.0) 12/20/17 05:41 [place] % (Auto) 12.1 % (0.0-13.0) 12/20/17 05:41 Eos % (Auto) 3.1 % (0.9-2.9) H 12/20/17 05:41 Baso % (Auto) 0.7 % (0.2-1.0) 12/20/17 05:41 Neut # (Auto) 5.8 x10^3/uL (2.2-4.8) H 12/20/17 05:41 Lymph # (Auto) 2.0 X10^3/uL (1.3-2.9) 12/20/17 05:41 [place] # (Auto) 1.1 x10^3/uL (0.3-0.8) H 12/20/17 05:41 Eos # (Auto) 0.3 x10^3/uL (0.0-0.2) H 12/20/17 05:41 Baso # (Auto) 0.1 X10^3/uL (0.0-0.1) 12/20/17 05:41 Absolute Nucleated RBC 0.1 /100WBC 12/20/17 05:41 INR Target Range - 12/20/17 05:41 INR 1.24 (0.8-1.3) 12/20/17 05:41 Sample Site Left radial 12/16/17 19:40 ABG pH 7.370 (7.35-7.45) 12/16/17 19:40 ABG pCO2 30.0 mmHg (35.0-45.0) L 12/16/17 19:40 ABG pO2 93.0 mmHg (80.0-100.0) 12/16/17 19:40 ABG HCO3 17.3 mmol/L (22-26) L* 12/16/17 19:40 ABG O2 Saturation 97.0 % (90-100) 12/16/17 19:40 ABG Base Excess -6.8 mmol/L (-2.0-2.0) L 12/16/17 19:40 Regan Test Pos 12/16/17 19:40 A-a Gradient 19.0 mmHg 12/16/17 19:40 FiO2 21.000 12/16/17 19:40 Blood Gas Comments Mary well jts 12/16/17 19:40 Sodium 133 mmol/L (136-145) L 12/20/17 05:41 Corrected Sodium 135 mmol/L (136-145) L 12/20/17 05:41 Potassium 4.0 mmol/L (3.5-5.1) 12/20/17 05:41 Chloride 104 mmol/L (98-107) 12/20/17 05:41 Carbon Dioxide 20.5 mmol/L (21-32) L 12/20/17 05:41 BUN 11 mg/dL (7-18) 12/20/17 05:41 Creatinine 0.73 mg/dL (0.55-1.02) 12/20/17 05:41 Est GFR (MDRD) Af Amer > 60 (>60) 12/20/17 05:41 Est GFR (MDRD) Non-Af > 60 (>60) 12/20/17 05:41 Glucose 202 mg/dL (65-99) H 12/20/17 05:41 POC Glucose (mg/dL) 188 mg/dL (65-99) H 12/20/17 08:14 Lactic Acid 0.9 mmol/L (0.4-2.0) 12/17/17 08:35 Calcium 7.3 mg/dL (8.5-10.1) L 12/20/17 05:41 Corrected Calcium 8.4 mg/dL (8.5-10.1) L 12/20/17 05:41 Magnesium 2.2 mg/dL (1.7-2.9) 12/17/17 05:43 Total Bilirubin 0.20 mg/dL (0.2-1.0) 12/20/17 05:41 AST 18 Units/L (15-37) 12/20/17 05:41 ALT 20 Units/L (12-78) 12/20/17 05:41 Alkaline Phosphatase 48 Units/L (46-116) 12/20/17 05:41 Creatine Kinase 529 Units/L (26-192) H 12/17/17 11:05 CK-MB (CK-2) 3.3 ng/mL (0-4.0) 12/17/17 11:05 CK/CKMB % Calc 0.6 % (<4) 12/17/17 11:05 Troponin I < 0.02 ng/mL (0-1.5) 12/17/17 11:05 Total Protein 5.7 g/dL (6.4-8.2) L 12/20/17 05:41 Albumin 2.6 g/dL (3.4-5.0) L 12/20/17 05:41 Globulin 3.1 g/dL (2.5-4.5) 12/20/17 05:41 Albumin/Globulin Ratio 0.8 Ratio (1.1-2.1) L 12/20/17 05:41 Specimen Type Catherized urine 12/16/17 20:38 Urine Color Yellow (YELLOW) 12/16/17 20:38 Urine Appearance Slightly hazy (CLEAR) 12/16/17 20:38 Urine pH 6.5 (5.0 - 8.0) 12/16/17 20:38 Ur Specific [place] 1.015 (1.000-1.030) 12/16/17 20:38 Urine Protein 2+ (NEGATIVE) 12/16/17 20:38 Urine Glucose (UA) 3+ (NEGATIVE) 12/16/17 20:38 Urine Ketones Negative (NEGATIVE) 12/16/17 20:38 Urine Occult Blood Negative (NEGATIVE) 12/16/17 20:38 Urine Nitrite Negative (NEGATIVE) 12/16/17 20:38 Urine Bilirubin Negative (NEGATIVE) 12/16/17 20:38 Urine Urobilinogen Normal (NORMAL) 12/16/17 20:38 Ur Leukocyte Esterase 2+ (NEGATIVE) 12/16/17 20:38 Urine RBC None seen /HPF (NONE SEEN) 12/16/17 20:38 Urine WBC 6-8 /HPF (NONE SEEN) 12/16/17 20:38 Ur Squamous Epith Cells Moderate /HPF (NEGATIVE) 12/16/17 20:38 Urine Bacteria 1+ /HPF (NEGATIVE) 12/16/17 20:38 Ur Culture Indicated? Yes/culture set up 12/16/17 20:38 Acetone, Semi-Quant Negative (NEGATIVE) 12/16/17 19:22 - Plan (1) Urinary tract infection Status: Acute Qualifiers: Urinary tract infection type: acute cystitis Hematuria presence: without hematuria Qualified Code(s): N30.00 - Acute cystitis without hematuria Plan: ROCEPHIN 1GM IV DAILY, NORMAL SALINE AT 150ML/HR, CONTINUE TO MONITOR (2) Dehydration Status: Acute Plan: NORMAL SALINE AT 150ML/HR, CONTINUE TO MONITOR (3) Hyperkalemia Status: Acute Plan: NORMAL SALINE AT 150ML/HR, CONTINUE TO MONITOR (4) Hyponatremia Status: Acute Plan: NORMAL SALINE AT 150ML/HR, CONTINUE TO MONITOR (5) Renal insufficiency Status: Acute Plan: NORMAL SALINE AT 150ML/HR, CONTINUE TO MONITOR
[2017-12-20] MEDS ORDERED: BUTT CREAM (COMPOUND) ONE (12:09)
[2017-12-20] MEDS ORDERED: BUTT CREAM (COMPOUND) TOP PRN (12:13)
[2017-12-20] MEDS ORDERED: DULCOLAX SUPPOSITORY 10 MG RECTAL ONE ×2 (14:26→15:19)
[2017-12-20 18:10] VITALS: BP 175/77
== END 2017-12-20 19:05 | DRG 690 ==
LOC: ER 18:54 → ICU 22:19
PROVIDERS: ADMIT Obstetrics & Gynecology Obstetrics; ATTEND Internal Medicine
DX: N30.00 Acute cystitis without hematuria (principal); E86.0 Dehydration; R41.82 Altered mental status, unspecified; E87.5 Hyperkalemia; E87.1 Hypo-osmolality and hyponatremia; K52.89 Other specified noninfective gastroenteritis and colitis; N18.9 Chronic kidney disease, unspecified; R53.1 Weakness; I25.10 Atherosclerotic heart disease of native coronary artery without angina pectoris; R06.02 Shortness of breath; E78.2 Mixed hyperlipidemia; K21.9 Gastro-esophageal reflux disease without esophagitis; I12.9 Hypertensive chronic kidney disease with stage 1 through stage 4 chronic kidney disease, or unspecified chronic kidney disease; E03.8 Other specified hypothyroidism; R94.31 Abnormal electrocardiogram [ECG] [EKG]; M62.82 Rhabdomyolysis; R26.89 Other abnormalities of gait and mobility
CPT/HCPCS: 36415; 36600; 51702; 70450; 71045; 80053; 81001; 82009; 82550; 82553; 82803; 82947; 83605; 83735; 84132; 84484; 85025; 85610; 87040; 87086; 93005; 93041; 96365; 96374; 96375; 99284; 99285; A4222; 1956; J0696; J1815; J3490

== ENCOUNTER → 2017-12-25 | Outpatient (CLI) | payer OTHER, MEDICAID ==
[2017-12-20 18:10] VITALS: BP 175/77
--- NOTE | 2017-12-25 17:10 | RAD ---
HISTORY: Abdominal pain. Constipation. Study: Acute abdominal series Comparison: November 04, 2017. Findings: The trachea is midline. The cardiac silhouette is unremarkable. The lungs are clear without focal i nfiltrate or effusion. The bony thorax is unremarkable. Flat plate and upright evaluation of the abdomen demonstrates a nonspecific bowel gas pattern. There is moderate dilatation of several loops of colon in the right rosalba abdomen. There is mild gaseous dis tention of several loops of small bowel in the left rosalba abdomen. There is no evidence of obstruction or free air. No pathological soft tissue mass or calcification can be observed. The bony structure s are grossly intact. Note is made of an IVC filter in place. IMPRESSION: 1. No acute cardiopulmonary disease. 2. No evidence for acute abdominal pathology identified. Reported By:
== END ==
LOC: RAD 15:58
PROVIDERS: ATTEND Internal Medicine
DX: R10.84 Generalized abdominal pain (principal)
CPT/HCPCS: 74022

== ENCOUNTER → 2017-12-29 | Outpatient (CLI) | payer OTHER, MEDICAID ==
[2017-12-20 18:10] VITALS: BP 175/77
--- NOTE | 2017-12-29 10:45 | US ---
RIGHT UPPER QUADRANT ULTRASOUND HISTORY: RUQ pain Comparison: None Technique: Multiple stubbs scale and color flow Doppler images of the right upper quadrant were obtaine d. Findings: Overall study is limited by overlying bowel gas. The liver is hyperechoic. No focal mass. Small gall stones present. No pericholecystic fluid or gallbladder wall thickening. The technologist did not rep ort a positive sonographic Giullen's sign. The common bile duct measures 5 mm. The right kidney measures 9.8 cm. No hydronephrosis or renal masses. The pancreas IMPRESSION: 1. Gallstones without evidence of cholecystitis. 2. Hepatic steatosis. Reported By:
== END | disposition home or self-care (01) ==
LOC: RAD 08:58
PROVIDERS: ATTEND Internal Medicine
DX: Z01.818 Encounter for other preprocedural examination (principal); Z01.810 Encounter for preprocedural cardiovascular examination; R10.84 Generalized abdominal pain; K80.80 Other cholelithiasis without obstruction; K80.20 Calculus of gallbladder without cholecystitis without obstruction; E88.89 Other specified metabolic disorders
CPT/HCPCS: 76705; 93005; 93306

== ENCOUNTER → 2018-01-05 | Outpatient (CLI) | payer OTHER, MEDICAID ==
[2017-12-20 18:10] VITALS: BP 175/77
--- NOTE | 2018-01-05 14:13 | NM ---
HIDA SCAN WITH EJECTION FRACTION. HISTORY: Abdominal pain Comparison: None Technique: Multiple scintigraphic images of the abdomen were obtained the intravenous administration of 5.3 mCi of technetium labeled Choletec. Findings: Homogeneous uptake of radiotracer is seen throughout the liver. The intrabiliary ductal system is ob served normally. The common hepatic and common bile duct appear unremarkable with normal biliary-bow el transit. The gallbladder is observed to fill normally. IMPRESSION: 1. No evidence of cystic duct obstruction. Reported By:
== END ==
LOC: RAD 11:19
PROVIDERS: ATTEND Internal Medicine
DX: R10.84 Generalized abdominal pain (principal); R11.2 Nausea with vomiting, unspecified
CPT/HCPCS: 78226; A9537

== ENCOUNTER → 2018-01-07 | Outpatient (CLI) | payer OTHER, MEDICAID ==
[2017-12-20 18:10] VITALS: BP 175/77
--- NOTE | 2018-01-07 12:41 | VAS ---
Exam: Carotid Doppler exam History: 82-year-old female with hypertension. Dizziness and visual disturbance. Comparison: None Findings: Plaque is present in both common carotid arteries and carotid bulbs. On the right, peak systolic velocities in cm/sec of the right internal and common carotid arteries me asure 96 and 75. The greatest ICA/CCA ratio on the right is 1.3 On the left, peak systolic velocities in cm/sec of the left internal and common carotid artery measur e 104 and 88. The greatest ICA/CCA ratio on the left is 1.56 Antegrade flow is documented in patent vertebral arteries bilaterally. Impression: No hemodynamically significant carotid stenosis is seen on either side. Reported By:
== END | disposition home or self-care (01) ==
LOC: RAD 11:29
PROVIDERS: ATTEND Internal Medicine
DX: H53.8 Other visual disturbances (principal)
CPT/HCPCS: 93880

== ENCOUNTER → 2018-01-26 | Day surgery (SDC) | payer OTHER, MEDICAID ==
[~2018-01-26] MED LIST: ANCEF VIAL 1 GM ONE; DIPRIVAN VIAL ONE; FENTANYL INJ 100 mcg ONE; KETALAR ONE; MARCAINE 0.25% INJ ONE; NS 100 ML IV 100 ML IV ONE; NS 1000 ML 1,000 ML ONE; NS IRRIGATION 1000 ML 1,000 ML IR ONE; VERSED ONE; XYLOCAINE 1% and EPINEPHRINE 1:100,000 ONE; XYLOCAINE 2 % (PLAIN) ONE
[2018-01-26 09:41] LABS: BASOPHILS # (AUTO) 0.1 X10^3/uL (0.0-0.1); EOSINOPHILS # (AUTO) 0.2 x10^3/uL (0.0-0.2); EOSINOPHILS % (AUTO) 3.1 % (0.9-2.9); HEMATOCRIT 35.6 % (36.0-47.0); HEMOGLOBIN 12.6 g/dL (12.0-16.0); LYMPHOCYTES # (AUTO) 1.2 X10^3/uL (1.3-2.9); LYMPHOCYTES % (AUTO) 22.7 % (21.0-51.0); MEAN CORPUSCULAR HGB CONC 35.4 g/dL (33.0-35.0); MEAN CORPUSCULAR VOLUME 87.6 fL (80.0-100.0); MEAN PLATELET VOLUME 7.3 fL (7.4-11.0); MONOCYTES # (AUTO) 0.8 x10^3/uL (0.3-0.8); MONOCYTES % (AUTO) 15.1 % (0.0-13.0); NEUTROPHILS # (AUTO) 3.1 x10^3/uL (2.2-4.8); NEUTROPHILS % (AUTO) 58.1 % (42.0-75.0); PLATELET COUNT 264 X10^3/uL (150.0-450.0); RED BLOOD COUNT 4.06 X10^6/uL (3.5-5.4); RED CELL DISTRIBUTION WIDTH 14.2 % (11.6-16.5); WHITE BLOOD COUNT 5.4 X10^3/uL (3.6-10.0)
[2018-01-26 09:48] LABS: BLOOD UREA NITROGEN 12 mg/dL (7-18); CARBON DIOXIDE 26.2 mmol/L (21-32); CHLORIDE 101 mmol/L (98-107); COR NA(FOR HYPERGLY) 138 mmol/L (136-145); CREATININE 0.85 mg/dL (0.55-1.02); SODIUM 136 mmol/L (136-145); eGFR BLACK RACES > 60 (>60); eGFR NON BLACK RACES > 60 (>60)
--- NOTE | 2018-01-26 11:21 | OR.GENERIC ---
Post-Op Note Generic - Post-Op Note Operative Report: Date of Operation: January 26, 2018 Pre-Operative Diagnosis: Right gluteal abscess. Post-Operative Diagnosis: Right gluteal abscess. Procedure: Incision and drainage of right gluteal abscess (complex). Surgeon: Hugh Ma MD Anesthesia: Monitored anesthesia care and local. Specimen: Wound culture. Estimated blood loss: Minimal Complications: None Summary: The patient is an 82 year old female who presented with a right gluteal abscess. The patient underwent outpatient antibiotics without resolution. The patient was offered incision and drainage. The risk and benefits of the procedure including difficulty with anesthesia, bleeding, infection, scar formation, delayed healing, as well as recurrence were discussed with the patient. The patient understood these risks and requested the procedure. On January 26, 2018, the patient was brought to the operative theatre. A time out was performed verifying the patient and the procedure. After satisfactory induction of monitored anesthesia care, the left axillae was prepped with Chloraprep and draped in the usual fashion. Local anesthetic was infiltrated around the area of induration. A small core of skin was removed sharply. The abscess cavity was entered bluntly. Purulent drainage was noted. A culture was obtained and sent to microbiology. All loculations were disrupted bluntly. The abscess cavity was copiously irrigated. Next, the wound was packed with Iodoform. A sterile dressing was placed. The patient was awakened and taken to the recovery room in stable condition. There were no complications. All counts were correct.
[2018-01-26 11:51] VITALS: BP 172/73
== END | disposition home or self-care (01) ==
LOC: SURG1 08:29
PROVIDERS: ATTEND Student in an Organized Health Care Education/Training Program
PROC: 0H98XZZ Drainage of Buttock Skin, External Approach (ICD-10-PCS; principal; 2018-01-26 10:30)
DX: L02.31 Cutaneous abscess of buttock (principal); B95.62 Methicillin resistant Staphylococcus aureus infection as the cause of diseases classified elsewhere; Z79.01 Long term (current) use of anticoagulants
CPT/HCPCS: 36415; 80048; 85025; 85610; 85730; 87070; 87075; 87077; 87186; 87205; 99100; A4222; S0020; J0690; J2001; J2250; J3010; J3490

== ENCOUNTER 2018-02-02 07:56 | Day surgery (SDC) | payer OTHER, MEDICAID ==
[~2018-02-02 07:56] MED LIST changes: -DIPRIVAN VIAL ONE; -FENTANYL INJ 100 mcg ONE; -KETALAR ONE; -MARCAINE 0.25% INJ ONE; -NS IRRIGATION 1000 ML 1,000 ML IR ONE; -VERSED ONE; -XYLOCAINE 1% and EPINEPHRINE 1:100,000 ONE; -XYLOCAINE 2 % (PLAIN) ONE
[2018-02-02] MEDS ORDERED: XYLOCAINE 1% and EPINEPHRINE 1:100,000 ONE (07:57)
[2018-02-02] MEDS ORDERED: MARCAINE 0.25% INJ ONE (07:57)
[2018-02-02] MEDS ORDERED: MORPHINE SULFATE INJ 2 MG INJ ONE (08:24)
[2018-02-02] MEDS ORDERED: FENTANYL INJ 100 mcg ONE (08:24)
[2018-02-02] MEDS ORDERED: NS IRRIGATION 1000 ML 1,000 ML IR ONE ×2 (09:13→09:26)
[2018-02-02] MEDS ORDERED: BENADRYL INJ 50 MG VIAL IVP PRN (09:55)
[2018-02-02] MEDS ORDERED: DILAUDID INJ IVP PRN (09:55)
[2018-02-02] MEDS ORDERED: ZOFRAN INJ 4 MG VIAL IVP PRN (09:55)
[2018-02-02] MEDS ORDERED: REGLAN INJ 10 MG VIAL IVP PRN (09:55)
[2018-02-02] MEDS ORDERED: PHENERGAN INJ 25 MG IVP PRN (09:55)
[2018-02-02] MEDS ORDERED: APRESOLINE TAB 10 MG ONE (10:10)
--- NOTE | 2018-02-02 10:10 | OR.GENERIC ---
Post-Op Note Generic - Post-Op Note Operative Report: Operative Report Date of Operation: February 02, 2018 Pre-Operative Diagnosis: Biliary dyskinesia. Post-Operative Diagnosis: Biliary dyskinesia. Procedure: Laparoscopic cholecystectomy. Surgeon: Hugh Ma MD. Homoeopath: Queenie Gonzalez CRNA. Specimen: Gallbladder. Estimated blood loss: Minimal. Complications: None. Summary: The patient is an 82 year old female who presented with biliary dyskinesia. The patient was offered cholecystectomy. The risk and benefits of the procedure including difficulty with anesthesia, bleeding, infection, conversion to open procedure, bile leak, hernia formation, DVT, as well as PE were discussed with the patient. The patient understood these risks and requested the procedure. On February 02, 2018, the patient was brought to the operative theatre. A time out was performed verifying the patient and procedure. The patient received Ancef for pre-operative antibiosis. After satisfactory induction of general endotracheal anesthesia, the abdomen was prepped with Chloraprep and draped in the usual sterile fashion. The skin and subcutaneous tissue inferior to the umbilicus was anesthetized using local anesthetic. The skin was incised sharply. A 12 mm trocar was placed though the incision and into the peritoneal cavity using the Optiview technique. Carbon dioxide was infiltrated through this trocar to obtain a pneumoperitoneum of 15 mm Hg. A camera was placed through this trocar and swept in all directions. No injury was seen from entering the peritoneal cavity. A site was selected in the subxiphoid location for our 2nd trocar. The skin and fascia was anesthetized using local anesthetic. The skin was incised sharply. A 5 mm trocar was placed into the peritoneal cavity under direct visualization. In a similar manner, two additional 5 mm trocars were placed. The first was placed in the mid- clavicular line approximately 2 fingerbreadths inferior to the left costal margin and a second in the anterior axillary line approximately 2 fingerbreadths inferior to the left costal margin. The patient was placed in reverse Trendelenburg and rotated to the patients left. The gallbladder was grasped at the fundus and elevated cephalad and slightly lateral. The peritoneum on the medial and lateral aspects of the infundibulum of the gallbladder was scored using hook electrocautery. The gallbladder tore with manipulation. Using blunt dissection, the cystic artery and duct were isolated. The critical view of safety was obtained. Both of these structures were divided between endoclips. A small posterior branch of the cystic artery was seen. This was ligated with an endoclip. The gallbladder was dissected free using hook electrocautery. The gallbladder was placed in an endobag and removed through the umbilical trocar site without difficulty. The trocar and camera were placed back inside the abdomen. Our clips were noted in good position. Bleeding of the gallbladder fossa was controlled using electrocautery. The gallbladder fossa was irrigated until clear. All irrigation fluid was removed. At this point, the 5 mm trocars were removed under direct visualization. No bleeding was seen. The umbilical trocar was then removed and pneumoperitoneum released. The fascia at the umbilicus was closed using a 0-Vicryl placed in a [id number] configuration. The skin edges at all incisions were re-approximated using inverted, interrupted 4-0 Monocryl sutures. Mastisol and Steri-strips were placed. Sterile dressings were placed. The patient was awakened and taken to the recovery room in stable condition. There were no complications. All counts were correct.
[2018-02-02] MEDS ORDERED: ATROPINE SULFATE ONE (10:11)
[2018-02-02] MEDS ORDERED: NORCO 5/325 MG TAB ONE (10:41)
[2018-02-02 11:24] VITALS: BP 184/68
[2018-02-02] MEDS ORDERED: DIPRIVAN VIAL ONE (12:56)
[2018-02-02] MEDS ORDERED: VERSED ONE (12:56)
[2018-02-02] MEDS ORDERED: NORCURON INJ 10 MG VIAL ONE (12:56)
[2018-02-02] MEDS ORDERED: ROBINUL ONE (12:56)
[2018-02-02] MEDS ORDERED: NEOSTIGMINE INJ ONE (12:56)
[2018-02-02] MEDS ORDERED: ZOFRAN INJ 4 MG VIAL ONE (12:56)
[2018-02-02] MEDS ORDERED: QUELICIN (OR ANECTINE) ONE (12:56)
[2018-02-02] MEDS ORDERED: NORMODYNE INJ 100 MG VIAL ONE (12:56)
[2018-02-02] MEDS ORDERED: ULTANE GAS IN ONE (12:56)
[2018-02-02] MEDS ORDERED: CANDIDA ALBICANS SKIN TEST ID ONE (12:56)
== END 2018-02-02 11:20 | disposition home or self-care (01) | DRG 419 ==
LOC: SURG1 07:56
PROVIDERS: ATTEND Student in an Organized Health Care Education/Training Program
PROC: 0FT44ZZ Resection of Gallbladder, Percutaneous Endoscopic Approach (ICD-10-PCS; principal; 2018-02-02 08:30)
DX: K82.8 Other specified diseases of gallbladder (principal); K80.80 Other cholelithiasis without obstruction
CPT/HCPCS: 95811; 99100; A4216; A4222; S0020; J0330; J0690; J2001; J2250; J2270; J2405; J2710; J3010; J3490

== ENCOUNTER 2018-02-05 09:19 | Inpatient (IN) | payer OTHER, MEDICAID ==
--- NOTE | 2018-02-05 10:28 | DR.NAUSEAF ---
HPI - Time Seen Time seen: 10:25 - Primary Care Physician Primary Care Physician: TIFFANI - Complaints Chief Complaint Doctors Comments: Family states patient has been complaining of LUQ pain and swelling with vomiting and decreased appetitie. states she had gallbladder surgery last week. Patient denies fever, chills, diarrhea but has been vomiting coffee ground material at the snf. Patient is complaining of sharp RUQ pain with chest pain and SOB. Patient denies cold, cough or any recent trauma. Chief Complaint:: TONH STAFF STATES PT HAS BEEN VOMITING ON AND OFF FOR SEVERAL DAYS. PT IS NOTED TO BE POST OP GALLBLADDER REMOVAL ON 02/02/18. NURSE DESCRIBES EMISIS TO BE OF COFFEE GROUND CONSISTENCY. - Reviewed Nurses Notes Reviewed: Yes - Source History Provided: Skilled Nursing - Mode of Arrival Mode of Arrival: Stretcher - Timing Onset of Chief Complaint: 02/05/18 - Context Onset: Spontaneous Recent: None Possible Ingestion: Unknown : No History of: Abdominal Operation (gall bladder surgery last week) - Quality Quality: Coffee Grounds - Associated Signs and Symptoms Abdominal Pain Quality: Sharp Abdominal Pain Location: RUQ Symptoms: Abdominal Pain PMH - PMH Past Medical History: Yes Past Medical History: Anemia, Arthritis, Asthma, CHF, Coronary Artery Disease, CVA, Depression, Diabetes, Dyslipidemia, GERD, Hypertension, Hypothyroidism Past Surgical History: Yes Surgical History: Cholecystectomy - Family History History of Family Medical Conditions: Yes Family Medical History: Hypertension - Social History Does any household member use tobacco: No Alcohol Use: None Do you use any recreational Drugs:: No Lives With: Other Lives Where: Skilled Nursing - infectious screening In the last 2 months have you had wt loss of >10#?: NO Have you had fever, night sweats or hemotysis?: No Have you traveled outside the country in the last 6 months?: No Isolation: Standard ROS - Review of Systems Constitutional: No Symptoms Reported, Weakness, Loss of Appetite Eyes: No Symptoms Reported ENTM: No Symptoms Reported. negative: See HPI, Ear Pain, Ear Discharge, Pulling on Ears, Hearing Loss, Nose Pain, Nose Discharge, Epistaxis, Nose Congestion, Mouth Pain, Mouth Swelling, Loose Teeth, Drooling, Throat Pain, Throat Swelling, Ear Foreign Body Respiratoy: No Symptoms Reported Cardiovascular: No Symptoms Reported, Chest Pain Gastrointestinal/Abdominal: Abdominal Pain, Nausea, Vomiting. negative: No Symptoms Reported, See HPI, Constipation, Diarrhea, Food Intolerance, Other Genitourinary: No Symptoms Reported. negative: See HPI, Discharge, Dysuria, Frequency, Hematuria, Pain, Bleeding, Other Neurological: No Symptoms Reported Musculoskeletal: No Symptoms Reported. negative: See HPI, Back Pain, Gout, Joint Pain, Joint Swelling, Muscle Pain, Muscle Stiffness, Neck Pain, Right, Left, Neck, Chest wall, Rib(s), Back, Shoulder, Arm, Elbow, Forearm, Wrist, Hand , Pelvis, Hip, Leg, Knee, Ankle, Foot, Other Integumentary: No Symptoms Reported Hematologic/Lymphatic: No Symptoms Reported Endocrine: No Symptoms Reported, Decreased Appetite Psychiatric: No Symptoms Reported. negative: See HPI, Anxiety, Depression, Hallucinations, Excessive crying, Suicidal, Other PE - Vital Signs Vitals: Temperature 97.3 F Pulse Rate [Right Radial] 98 Pulse Rate 119 Respiratory Rate 16 Blood Pressure [Right Arm] 182/81 Blood Pressure [Left Arm] 155/83 Blood Pressure 220/146 O2 Sat by Pulse Oximetry 95 - General Limitations: No Limitations General Appearance: Alert, In Distress (moderate) - Head Head Exam: Normal Inspection, Atraumatic, Normocephalic - Eyes Eye exam: Normal Appearance, PERRL, EOMI. negative: Scleral Icterus, Conjunctival Injection, Nystagmus, Miosis, Mydrasis, Periorbital Swelling, Periorbital Tenderness, Other - ENT ENT Exam: Normal Exam, Normal Oropharynx, Normal External Ear Exam, Mucous Membranes Moist, TM's Normal Bilaterally - Neck Neck Exam: Normal Inspection, Full ROM, Trachea Midline. negative: Tenderness, Meningismus, Lymphadenopathy, Thyromegaly, Other - Chest Chest Inspection: Normal Inspection, Symmetric Chest Wall Rise. negative: Tenderness, Rash, Abscess, Other - Respiratory Respiratory Exam: Normal Lung Sounds Bilat Respiratory Exam: Bilateral Clear to Auscultation - Cardiovascular Cardiovascular Exam: Regular Rate, Normal Rhythm, Normal Heart Sounds - Abdominal Exam Abdominal Exam: Normal Inspection, Normal Bowel Sounds, Soft, Tenderness (left hypogastric buldging, tender) Abdominal Tenderness: LUQ, Moderate - Rectal Rectal Exam: Deferred - External Exam: Female: Deferred : Speculum Exam (Female): Deferred : Bimanual Exam (female): Deferred - Extremities Extremities Exam: Normal Inspection, Full ROM, Normal Capillary Refill - Back Back Exam: Normal Inspection, Full ROM. negative: Tenderness, (R) CVA Tenderness, (L) CVA Tenderness, Muscle Spasm, Paraspinal Tenderness, Vertebral Tenderness, Rashes, (R) Sciatic Notch Tenderness, (L) Sciatic Notch Tendern, (R ) Straight Leg Raise, (L) Straight Leg Raise, Other - Neurologic Neurological Exam: Alert, Oriented X3, CN II-XII Intact, Reflexes Normal. negative: Normal Gait (gait not tested) - Psychiatric Psychiatric Exam: Normal Affect, Normal Mood - Skin Skin Exam: Warm, Dry, Intact, Normal Color Course - Reevaluation 1st: Improved - Consultation Called: :57 Call Returned: :57 (Dr. Phillips to admit) Consultation Comments: Dr. Phillips called stated to admit and give Lovenox 60mg SC q12; Zosyn and Verapermil CR 120mg daily with [id number] [id number] prn - Education/Counseling Education/Counseling: Patient, Family Educated On: Treatment, Diagnosis, Needs for Follow Up ROR - Labs Reviewed Laboratory Results Reviewed?: Yes (All labs and x-ray results reviewed and discussed with patient) Result Diagrams: 02/05/18 09:35 02/05/18 09:35 Laboratory: WBC 19.2 X10^3/uL (3.6-10.0) H D 02/05/18 09:35 RBC 5.16 X10^6/uL (3.5-5.4) 02/05/18 09:35 Hgb 15.9 g/dL (12.0-16.0) D 02/05/18 09:35 Hct 45.3 % (36.0-47.0) 02/05/18 09:35 MCV 87.9 fL (80.0-100.0) 02/05/18 09:35 MCH 30.7 pg (27.0-34.0) 02/05/18 09:35 MCHC 35.0 g/dL (33.0-35.0) 02/05/18 09:35 RDW 14.5 % (11.6-16.5) 02/05/18 09:35 Plt Count 607 X10^3/uL (150.0-450.0) H 02/05/18 09:35 Plt Count Comment Increased (ADEQUATE) A 02/05/18 09:35 MPV 7.8 fL (7.4-11.0) 02/05/18 09:35 Neut % (Auto) 85.5 % (42.0-75.0) H 02/05/18 09:35 Lymph % (Auto) 5.2 % (21.0-51.0) L 02/05/18 09:35 [place] % (Auto) 9.0 % (0.0-13.0) 02/05/18 09:35 Eos % (Auto) 0.0 % (0.9-2.9) L 02/05/18 09:35 Baso % (Auto) 0.3 % (0.2-1.0) 02/05/18 09:35 Neut # (Auto) 16.4 x10^3/uL (2.2-4.8) H 02/05/18 09:35 Lymph # (Auto) 1.0 X10^3/uL (1.3-2.9) L 02/05/18 09:35 [place] # (Auto) 1.7 x10^3/uL (0.3-0.8) H 02/05/18 09:35 Eos # (Auto) 0.0 x10^3/uL (0.0-0.2) 02/05/18 09:35 Baso # (Auto) 0.1 X10^3/uL (0.0-0.1) 02/05/18 09:35 Absolute Nucleated RBC 0.0 /100WBC 02/05/18 09:35 Plt Morphology Comment Normal (NORMAL) 02/05/18 09:35 RBC Morphology Normal (NORMAL) 02/05/18 09:35 INR Target Range - 02/05/18 09:35 INR 1.03 (0.8-1.3) 02/05/18 09:35 APTT 30.0 SECONDS (22.9-36.5) 02/05/18 09:35 PTT Comment - 02/05/18 09:35 Sodium 131 mmol/L (136-145) L 02/05/18 09:35 Corrected Sodium 139 mmol/L (136-145) 02/05/18 09:35 Potassium 3.9 mmol/L (3.5-5.1) 02/05/18 09:35 Chloride 93 mmol/L (98-107) L 02/05/18 09:35 Carbon Dioxide 25.0 mmol/L (21-32) 02/05/18 09:35 BUN 26 mg/dL (7-18) H 02/05/18 09:35 Creatinine 0.96 mg/dL (0.55-1.02) 02/05/18 09:35 Est GFR (MDRD) Af Amer > 60 (>60) 02/05/18 09:35 Est GFR (MDRD) Non-Af 59 (>60) 02/05/18 09:35 Glucose 416 mg/dL (65-99) H 02/05/18 09:35 POC Glucose (mg/dL) 392 mg/dL (65-99) H 02/05/18 14:45 Calcium 9.3 mg/dL (8.5-10.1) 02/05/18 09:35 Corrected Calcium TNP 02/05/18 09:35 Magnesium 2.0 mg/dL (1.7-2.9) 02/05/18 09:35 Total Bilirubin 0.70 mg/dL (0.2-1.0) 02/05/18 09:35 AST 21 Units/L (15-37) 02/05/18 09:35 ALT 34 Units/L (12-78) 02/05/18 09:35 Alkaline Phosphatase 75 Units/L (46-116) 02/05/18 09:35 Creatine Kinase 52 Units/L (26-192) 02/05/18 09:35 CK-MB (CK-2) 2.1 ng/mL (0-4.0) 02/05/18 09:35 CK/CKMB % Calc 4.0 % (<4) 02/05/18 09:35 Troponin I 0.09 ng/mL (0-1.5) 02/05/18 09:35 Total Protein 8.5 g/dL (6.4-8.2) H 02/05/18 09:35 Albumin 3.8 g/dL (3.4-5.0) 02/05/18 09:35 Globulin 4.7 g/dL (2.5-4.5) H 02/05/18 09:35 Albumin/Globulin Ratio 0.8 Ratio (1.1-2.1) L 02/05/18 09:35 Amylase 23 Units/L (25-115) L 02/05/18 09:35 Lipase 97 Units/L (73-393) 02/05/18 09:35 Specimen Type Catherized urine 02/05/18 12:46 Urine Color Pale yellow (YELLOW) 02/05/18 12:46 Urine Appearance Clear (CLEAR) 02/05/18 12:46 Urine pH 7.0 (5.0 - 8.0) 02/05/18 12:46 Ur Specific [place] 1.015 (1.000-1.030) 02/05/18 12:46 Urine Protein 4+ (NEGATIVE) 02/05/18 12:46 Urine Glucose (UA) 4+ (NEGATIVE) 02/05/18 12:46 Urine Ketones 2+ (NEGATIVE) 02/05/18 12:46 Urine Occult Blood 1+ (NEGATIVE) 02/05/18 12:46 Urine Nitrite Negative (NEGATIVE) 02/05/18 12:46 Urine Bilirubin Negative (NEGATIVE) 02/05/18 12:46 Urine Urobilinogen Normal (NORMAL) 02/05/18 12:46 Ur Leukocyte Esterase Negative (NEGATIVE) 02/05/18 12:46 Urine RBC 0-2 /HPF (NONE SEEN) 02/05/18 12:46 Urine WBC 0-2 /HPF (NONE SEEN) 02/05/18 12:46 Ur Squamous Epith Cells Rare /HPF (NEGATIVE) 02/05/18 12:46 Urine Bacteria Negative /HPF (NEGATIVE) 02/05/18 12:46 Urine Mucus Rare /HPF (NEGATIVE) 02/05/18 12:46 Ur Culture Indicated? No/not indicated 02/05/18 12:46 - XRAY XRAY Interpreted by: Radiologist (CT abdomen and pelvis: Postoperative changes with no acute intra-abdominal or pelvic findings) XRAY Findings: CXR: no acute cardiopulmonary changes noted - EKG Rate: [address] [place]: Normal Rhythm: ST Block: None Hypertrophy: LVH ST: Nonsp - Diagnosis Discharge Problem: Atrial fibrillation with rapid ventricular response, Diabetes mellitus type 1, uncontrolled, Accelerated hypertension Chest pain Qualifiers: Chest pain type: unspecified Qualified Code(s): R07.9 - Chest pain, unspecified Sacral decubitus ulcer Qualifiers: Pressure ulcer stage: stage 2 Qualified Code(s): L89.152 - Pressure ulcer of sacral region, stage 2 Leukocytosis Qualifiers: Leukocytosis type: unspecified Qualified Code(s): D72.829 - Elevated white blood cell count, unspecified - Discharge Plan Disposition: 09 ADMITTED INPATIENT Condition: Stable - Follow ups/Referrals Follow ups/Referrals: Ryan Phillips [Primary Care Provider] - 3 days - Instructions
[2018-02-05 10:38] LABS: BASOPHILS # (AUTO) 0.1 X10^3/uL (0.0-0.1); BASOPHILS % (AUTO) 0.3 % (0.2-1.0); HEMATOCRIT 45.3 % (36.0-47.0); HEMOGLOBIN 15.9 g/dL (12.0-16.0); LYMPHOCYTES % (AUTO) 5.2 % (21.0-51.0); MEAN CORPUSCULAR HEMOGLOBIN 30.7 pg (27.0-34.0); MEAN CORPUSCULAR VOLUME 87.9 fL (80.0-100.0); MEAN PLATELET VOLUME 7.8 fL (7.4-11.0); MONOCYTES # (AUTO) 1.7 x10^3/uL (0.3-0.8); NEUTROPHILS # (AUTO) 16.4 x10^3/uL (2.2-4.8); NEUTROPHILS % (AUTO) 85.5 % (42.0-75.0); PLATELET COUNT 607 X10^3/uL (150.0-450.0); RED BLOOD COUNT 5.16 X10^6/uL (3.5-5.4); RED CELL DISTRIBUTION WIDTH 14.5 % (11.6-16.5)
[2018-02-05 10:44] LABS: WHITE BLOOD COUNT 19.2 X10^3/uL (3.6-10.0)
[2018-02-05 10:45] LABS: PLATELET MORPHOLOGY COMMENT NORMAL (NORMAL)
[2018-02-05 10:51] LABS: BLOOD UREA NITROGEN 26 mg/dL (7-18); CALCIUM 9.3 mg/dL (8.5-10.1); CHLORIDE 93 mmol/L (98-107); COR NA(FOR HYPERGLY) 139 mmol/L (136-145); CREATININE 0.96 mg/dL (0.55-1.02); SODIUM 131 mmol/L (136-145); TROPONIN I 0.09 ng/mL (0-1.5); eGFR BLACK RACES > 60 (>60); eGFR NON BLACK RACES 59 (>60)
--- NOTE | 2018-02-05 10:53 | RAD ---
Examination: Portable AP chest History: Chest pain Comparison reference 12/20/2017 Findings: Continued normal heart size with clear lungs and pleural spaces. Impression: No change; no acute abnormality. Reported By:
[2018-02-05 10:55] LABS: ALANINE AMINOTRANSFERASE 34 Units/L (12-78); ALBUMIN 3.8 g/dL (3.4-5.0); ALKALINE PHOSPHATASE 75 Units/L (46-116); AMYLASE 23 Units/L (25-115); ASPARTATE AMINO TRANSFERASE 21 Units/L (15-37); CREATINE KINASE 52 Units/L (26-192); CREATINE KINASE MB 2.1 ng/mL (0-4.0); LIPASE 97 Units/L (73-393); TOTAL PROTEIN 8.5 g/dL (6.4-8.2)
--- NOTE | 2018-02-05 10:59 | CT ---
HISTORY: Abdominal pain vomiting Study: CT abdomen and pelvis without contrast Comparison: [id number] [id number] Technique: Multiple axial images of the abdomen and pelvis were obtained from the lung bases to the pubic symphy sis without the administration of IV contrast. Findings: The visualized portions of the lung bases are unremarkable. The liver, spleen, pancreas, kidneys, an d adrenal glands are unremarkable in their noncontrast and CT appearance. The gallbladder is surgical ly absent and there is some mild stranding in the gallbladder fossa with subcutaneous emphysema and a small amount of Ensure abdominal air. These findings are compatible postoperative changes. An IVC fi lter is again noted place.. No significant mesenteric lymphadenopathy or stranding can be observed. No free fluid or free air is seen within the abdomen. No bowel wall thickening or bowel dilatation is present. The colon is unremarkable. Specifically, there is no diverticulosis noted within the si gmoid colon. Appendix is normal. The urinary bladder is grossly unremarkable. The bony structures ar e grossly intact. IMPRESSION: 1. Postoperative changes as above with no acute intra-abdominal or pelvic findings. Reported By:
[2018-02-05] MEDS ORDERED: LOPRESSOR INJ 5 MG AMP ONE ×2 (11:12→13:34)
[2018-02-05] MEDS ORDERED: LANOXIN INJ IVP STA (11:15)
[2018-02-05] MEDS ORDERED: LOPRESSOR INJ 5 MG AMP IVP ONE ×4 (11:15→13:43)
[2018-02-05] MEDS: NS 1000 ML 1,000 ML IV SCH (11:23)
[2018-02-05] MEDS ORDERED: LANOXIN INJ ONE (11:24)
[2018-02-05] MEDS ORDERED: HumuLIN R IV STA (12:17)
[2018-02-05] MEDS ORDERED: CATAPRES TAB 0.3 MG PO ONE (12:49)
[2018-02-05] MEDS ORDERED: CATAPRES TAB 0.3 MG ONE (12:51)
[2018-02-05] MEDS ORDERED: HumuLIN R ONE (12:52)
[2018-02-05 12:54] LABS: BILIRUBIN,URINE NEGATIVE (NEGATIVE); BLOOD/HEMOGLOBIN,URINE 1+ (NEGATIVE); GLUCOSE, URINE 4+ (NEGATIVE); KETONES,URINE 2+ (NEGATIVE); LEUKOCYTE ESTERASE ,URINE NEGATIVE (NEGATIVE); NITRITES,URINE NEGATIVE (NEGATIVE); PROTEIN,URINE 4+ (NEGATIVE); UROBILINOGEN,URINE NORMAL (NORMAL)
[2018-02-05 12:55] LABS: APPEARANCE,URINE CLEAR (CLEAR); COLOR,URINE PALE YELLOW (YELLOW)
[2018-02-05 13:07] LABS: RBC,URINE 0-2 /HPF (NONE SEEN); SQUAMOUS EPITHELIAL CELL,UR RARE /HPF (NEGATIVE)
[2018-02-05 13:08] LABS: BACTERIA,URINE NEGATIVE /HPF (NEGATIVE); MUCUS,URINE RARE /HPF (NEGATIVE)
[2018-02-05] MEDS ORDERED: ROCEPHIN 1 GM IV PREMIX 1 GM/50 ML IV.SOLN. IV ONE ×2 (13:15→13:35)
[2018-02-05] MEDS ORDERED: PROCARDIA XL PO ONE (13:47)
[2018-02-05] MEDS ORDERED: NIFEDIPINE CAP 10 MG ONE (14:45)
[2018-02-05] MEDS ORDERED: LOVENOX INJ 60 MG SYR SC ONE (14:59)
[2018-02-05] MEDS ORDERED: ZOSYN VIAL 3.375 GM 3.375 GM in NS 100 ML IV + SPIKE MINIBAG* 100 ML IV ONE (14:59)
[2018-02-05] MEDS ORDERED: MOTRIN TAB 600 MG PO PRN (15:06)
[2018-02-05] MEDS ORDERED: GENTAMICIN INJ 80 MG in NS 100 ML IV 100 ML IV ONE ×2 (15:15→15:19)
[2018-02-05 15:32] LABS: CKMB % 3.2 % (<4); CREATINE KINASE MB 1.6 ng/mL (0-4.0); TROPONIN I 0.07 ng/mL (0-1.5)
[2018-02-05] MEDS ORDERED: ZOSYN VIAL 3.375 GM IV SCH (16:00)
[2018-02-05] MEDS: CALAN SR 120 MG PO SCH ×2 (16:50→18:20)
[2018-02-05 16:51] VITALS: BMI 26.4
[2018-02-05] MEDS: ZOSYN VIAL 3.375 GM 3.375 GM in NS 100 ML IV + SPIKE MINIBAG* 100 ML IV SCH ×2 (17:26→23:30)
[2018-02-05] MEDS: HumuLIN R SC PRN ×2 (18:32→22:07)
[2018-02-05] MEDS: SNACK - Diabetic Appropriate PO SCH (20:54)
[2018-02-05] MEDS ORDERED: TRAVOPROST EACHEYE SCH (21:00)
[2018-02-05] MEDS: LOVENOX INJ 60 MG SYR SC SCH (21:02)
[2018-02-05] MEDS: LIPITOR TAB 20 MG PO SCH (21:02)
[2018-02-05] MEDS: APRESOLINE TAB 25 MG PO SCH (21:03)
[2018-02-05] MEDS: ARTIFICIAL TEARS DROPS EACHEYE SCH (21:08)
[2018-02-05] MEDS: TRAVATAN Z EACHEYE SCH (21:37)
[2018-02-05] MEDS ORDERED: ZOSYN VIAL 3.375 GM 3.375 GM in NS 100 ML IV + SPIKE MINIBAG* 100 ML IV SCH (22:00)
[2018-02-05] MEDS ORDERED: PATIENT'S HOME MEDICATION (Hydralazine Hcl [Hydralazine Hcl 50 Mg] 50 MG) PO SCH (22:00)
[2018-02-05] MEDS: CATAPRES TAB 0.3 MG PO SCH (22:14)
[2018-02-06] MEDS: NS 1000 ML 1,000 ML IV SCH ×3 (00:53→15:03)
[2018-02-06] MEDS: ZOSYN VIAL 3.375 GM 3.375 GM in NS 100 ML IV + SPIKE MINIBAG* 100 ML IV SCH ×3 (05:17→21:42)
[2018-02-06] MEDS: ARTIFICIAL TEARS DROPS EACHEYE SCH ×3 (05:17→21:41)
[2018-02-06] MEDS: APRESOLINE TAB 25 MG PO SCH ×3 (06:14→21:32)
[2018-02-06 06:37] LABS: BASOPHILS # (AUTO) 0.1 X10^3/uL (0.0-0.1); BASOPHILS % (AUTO) 1.2 % (0.2-1.0); EOSINOPHILS # (AUTO) 0.2 x10^3/uL (0.0-0.2); EOSINOPHILS % (AUTO) 2.7 % (0.9-2.9); HEMATOCRIT 33.6 % (36.0-47.0); HEMOGLOBIN 11.9 g/dL (12.0-16.0); LYMPHOCYTES # (AUTO) 2.5 X10^3/uL (1.3-2.9); LYMPHOCYTES % (AUTO) 28.4 % (21.0-51.0); MEAN CORPUSCULAR HEMOGLOBIN 30.9 pg (27.0-34.0); MEAN CORPUSCULAR HGB CONC 35.4 g/dL (33.0-35.0); MEAN CORPUSCULAR VOLUME 87.4 fL (80.0-100.0); MEAN PLATELET VOLUME 7.8 fL (7.4-11.0); MONOCYTES % (AUTO) 11.9 % (0.0-13.0); NEUTROPHILS # (AUTO) 4.9 x10^3/uL (2.2-4.8); NEUTROPHILS % (AUTO) 55.8 % (42.0-75.0); PLATELET COUNT 368 X10^3/uL (150.0-450.0); RED BLOOD COUNT 3.84 X10^6/uL (3.5-5.4); RED CELL DISTRIBUTION WIDTH 14.2 % (11.6-16.5); WHITE BLOOD COUNT 8.8 X10^3/uL (3.6-10.0)
[2018-02-06 08:08] LABS: ALBUMIN 2.8 g/dL (3.4-5.0); CALCIUM 8.3 mg/dL (8.5-10.1); CARBON DIOXIDE 25.8 mmol/L (21-32); COR CA(FOR HYPOALB) 9.3 mg/dL (8.5-10.1); CREATININE 1.32 mg/dL (0.55-1.02); TOTAL PROTEIN 6.1 g/dL (6.4-8.2)
[2018-02-06] MEDS ORDERED: MAGNESIUM SULFATE 1 GM/100 mL PREMIX 1 GM/100 ML BAG IV PRN (08:22)
[2018-02-06] MEDS ORDERED: POTASSIUM CHLORIDE LIQ 20 MEQ UDC PO PRN (08:22)
[2018-02-06] MEDS ORDERED: POTASSIUM CHL 60 MEQ/NS 0.45% 500 ML IV PRN (08:22)
[2018-02-06] MEDS ORDERED: K-LYTE EFFERVESCENT PO PRN (08:22)
[2018-02-06] MEDS: TRICOR TAB 48 MG PO SCH (08:46)
[2018-02-06] MEDS: LOVENOX INJ 60 MG SYR SC SCH ×2 (08:46→20:47)
[2018-02-06] MEDS: POTASSIUM CHL 40 MEQ/NS 0.45% 500 ML IV PRN (10:05)
[2018-02-06] MEDS: CATAPRES TAB 0.3 MG PO SCH ×3 (10:08→21:32)
[2018-02-06] MEDS: HumuLIN R SC PRN ×2 (11:34→16:30)
[2018-02-06] MEDS: CALAN IVP PRN ×3 (12:12→14:29)
[2018-02-06] MEDS: ZOFRAN INJ 4 MG VIAL IVP PRN (13:11)
[2018-02-06] MEDS ORDERED: LANOXIN INJ IVP ONE (13:27)
[2018-02-06] MEDS: SYNTHROID 50 mcg TAB PO SCH (15:48)
[2018-02-06] MEDS: PHENERGAN TAB 25 MG PO PRN (15:54)
[2018-02-06] MEDS: CALAN SR 180 MG PO SCH (16:03)
[2018-02-06] MEDS ORDERED: MAALOX or MYLANTA PO PRN (16:08)
[2018-02-06] MEDS ORDERED: PATIENT'S HOME MEDICATION (Ascorbic Acid [Vitamin C] 500 MG) PO SCH (16:15)
[2018-02-06 16:30] LABS: CKMB % 2.7 % (<4); CREATINE KINASE MB 1.2 ng/mL (0-4.0); TROPONIN I 0.02 ng/mL (0-1.5)
[2018-02-06] MEDS: COLACE CAP 100 MG PO SCH ×2 (16:37→20:46)
[2018-02-06 16:47] LABS: BILIRUBIN,URINE NEGATIVE (NEGATIVE); BLOOD/HEMOGLOBIN,URINE NEGATIVE (NEGATIVE); GLUCOSE, URINE 4+ (NEGATIVE); KETONES,URINE 1+ (NEGATIVE); LEUKOCYTE ESTERASE ,URINE NEGATIVE (NEGATIVE); NITRITES,URINE NEGATIVE (NEGATIVE); PROTEIN,URINE 3+ (NEGATIVE); UROBILINOGEN,URINE NORMAL (NORMAL)
[2018-02-06 16:58] LABS: APPEARANCE,URINE CLEAR (CLEAR); COLOR,URINE YELLOW (YELLOW); RBC,URINE NONE SEEN /HPF (NONE SEEN); SQUAMOUS EPITHELIAL CELL,UR RARE /HPF (NEGATIVE)
[2018-02-06 16:59] LABS: AMORPHOUS SEDIMENT,UR TRACE /HPF (NEGATIVE); BACTERIA,URINE NEGATIVE /HPF (NEGATIVE)
[2018-02-06] MEDS ORDERED: OSCAL+D or CALTRATE+D PO ONE (17:16)
[2018-02-06] MEDS ORDERED: VITAMIN C ONE (17:16)
[2018-02-06] MEDS: EFFEXOR XR 37.5 MG CAP PO SCH (17:19)
[2018-02-06] MEDS: CITRACAL + VITAMIN D PO SCH (17:19)
[2018-02-06] MEDS: JANUVIA PO SCH (17:19)
[2018-02-06] MEDS: MIRALAX POWDER (1 DOSE 17GM) PO SCH (18:29)
[2018-02-06] MEDS ORDERED: LOPRESSOR INJ 5 MG AMP IVP ONE (18:59)
--- NOTE | 2018-02-06 19:16 | DR.H&P ---
H&P - History & Physical for Day of: H&P Date: 02/05/18 - Chief Complaint Chief Complaint: nausea and vomiting - Allergies Allergies/Adverse Reactions: Allergies Allergy/AdvReac Type Severity Reaction Status Date / Time tuberculin,PPD,multi-puncture Allergy Verified 12/16/17 20:21 - History of Present Illness History of Present Illness: is a 82 year old patient of ours. She is a resident of [facility]. Patent transported to ER with complaints of vomiting coffee grounds emesis with elevated blood pressure. Patient recently had gallbladder removed on 02/02/18. Staff reports that patient has been vomiting since then. Patient denies fever, chills, or diarrhea. Upon assessment patient complaining of abdominal pain and swelling with vomiting and decreased appetite. Exam reveals tenderness to the RUQ. She also reports chest pain with shortness of breath. On arrival, labs were 97.3, 119, 16, 95% RA, 150/98. Abnormal Labs include the following: WBC 19.2, PLT Count 607, Increased A, Glucose 351, @ 17:45, Sod 131, Potassium 3.2, Chloride 96, BUN 41, Creatinine 1.32, GFR Af Amer 50, GFR Non Af 41, Glucose 165, Calcium 8.3, Total Protein 6.1 , Albumin 2.8, Albumin/Globulin Ratio 0.8. Blood Culture X 2 Pending. Urine: Catharized Color Pale Yellow, Appearance Clear, Protein 4+, Glucose 4+, Ketones 2+, Occult Blood 1+, RBC 0-2, WBC 0-2. Chest Xray reported: Impression: No change, no acute abnormality. CT Abdomen and pelvis without contrast revealed: Postoperative changes as above with no acute intra-abdominal or pelvic findings.EKG reveals elevated heart rate of 159 [address] Tach. Patient has received Lopressor IVP 2.5 X 3 and started on Lovenox 60 mg SQ BID as well as Hum R 10 units IV. Patient will be admitted with Atrial fib with rapid ventricular response, uncontrolled Diabetes Type 1 with accelerated HTN and Leukocytosis. 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 Patient to receive gentle hydration and aggressive IV antibiotic therapy. We will continue to manage pain and nausea as well as Atrial fabulation. - Past Medical History Past Medical History: Anemia, Arthritis, Asthma, CHF, Coronary Artery Disease, CVA, Depression, Diabetes, Dyslipidemia, GERD, Hypertension, Hypothyroidism Additional Medical History: DVT, Sleep Apnea, Depression, Chronic Sinusitis, Allergic Rhinitis, Constipation, Edema, UTI's, Pneumonia, Arthritis, Cataracts, Osteoporosis, Glaucoma, Ear Infections, Gastrointestinal Ulcer, Cardiac Arrhythmia, Muscle Weakness, Osteoporsis, Restless leg syndrome - Past Surgical History Surgical History: Cholecystectomy Additional Surgical History: Sinus surgery - Family History Family Medical History: Hypertension - Social History Does patient currently use any type of tobacco product: No Have you used tobacco products in the last 12 months: No Type of Tobacco Use: None How many years tobacco product used: 0 Does any household member use tobacco: No Alcohol Use: None - Medications Home Medications: Ascorbic Acid [Vitamin C] 500 mg PO BID 02/05/18 [History Confirmed 02/05/18] Diltiazem HCl [Cardizem Cd] 120 mg PO BID 02/05/18 [History Confirmed 02/05/18] Hydrocodone-Acet 5 mg/325 mg [[place] 5/325 mg Tab] 1 tab PO Q6H PRN 02/05/18 [ History Confirmed 02/05/18] Multivitamin [Multi Vitamin Daily] 1 tab PO DAILY 02/05/18 [History Confirmed ] Ondansetron HCl [Zofran Tab 4 mg] 4 mg PO Q6H PRN 02/05/18 [History Confirmed ] Ranitidine HCl [ZANTAC TAB 150 MG *] 150 mg PO BID 02/05/18 [History Confirmed 02/05/18] - Review of Systems Constitutional: Weakness Eyes: No Symptoms Reported ENT: No Symptoms Reported Respiratory: See HPI, Shortness of Breath Cardiovascular: Chest Pain Gastrointestinal: Nausea, Abdominal Pain Genitourinary: No Symptoms Reported Musculoskeletal: No Symptoms Reported Skin: No Symptoms Reported Neurological: Weakness - Physical Exam Vital Signs: Temperature 98.8 F Pulse Rate [Apical] 149 Pulse Rate [Right Radial] 102 Pulse Rate 167 Respiratory Rate 20 Blood Pressure [Right Arm] 182/81 Blood Pressure [Left Arm] 157/86 Blood Pressure 215/100 O2 Sat by Pulse Oximetry 98 Oriented: Normal Eyes: Normal Ear: Normal Nose: Normal Throat: Normal Respiratory: Diminished Throughout Cardiovascular: Tachycardia. negative: S3, S4, Murmur : Normal Auscultation: Bowel Sounds: Normal Palpation: Normal Tenderness: RUQ, Epigastric Skin: Normal Musculoskeletal: Normal Psychiatric: Normal Mood Description: Calm Affect: Normal Speech Pattern: Clear - Assessment/Plan (1) Atrial fibrillation with rapid ventricular response Status: Acute Plan: verapamil 180mg po daily, longwall machine operator helper, supplemental oxygen, continue to monitor (2) Abdominal pain Qualifiers: Abdominal location: right upper quadrant Qualified Code(s): R10.11 - Right upper quadrant pain Status: Acute Plan: norco, continue to monitor (3) Nausea & vomiting Qualifiers: Vomiting type: hematemesis Qualified Code(s): K92.0 - Hematemesis Status: Acute Plan: phenergan po, zofran 4mg iv q8h prn, continue to monitor
[2018-02-06] MEDS: SNACK - Diabetic Appropriate PO SCH (20:32)
[2018-02-06] MEDS: LEVEMIR SC SCH (20:47)
[2018-02-06] MEDS: LIPITOR TAB 20 MG PO SCH (20:47)
[2018-02-06] MEDS: TRAVATAN Z EACHEYE SCH (20:48)
[2018-02-06] MEDS: VITAMIN C PO SCH (20:48)
[2018-02-06] MEDS: ZESTRIL TAB 10 MG PO SCH (20:49)
[2018-02-06] MEDS: ZANTAC PO SCH (20:49)
[2018-02-06] MEDS: MYLICON TAB 80 MG CHEW PO SCH (20:57)
[2018-02-06] MEDS ORDERED: COUMADIN TAB 5 MG PO SCH (21:00)
[2018-02-06 21:22] LABS: CKMB % 2.7 % (<4); TROPONIN I 0.02 ng/mL (0-1.5)
[2018-02-07] MEDS: K-RIDER 10 MEQ/NS 100 ML 10 MEQ/100 ML BAG IV PRN ×4 (01:33→10:53)
[2018-02-07 03:34] LABS: CKMB % 3.6 % (<4); CREATINE KINASE 28 Units/L (26-192); CREATINE KINASE MB < 1.0 ng/mL (0-4.0); DIGOXIN 0.35 ng/mL (0.9-2); TROPONIN I 0.03 ng/mL (0-1.5)
[2018-02-07] MEDS: NS 1000 ML 1,000 ML IV SCH ×4 (03:39→21:14)
[2018-02-07] MEDS: ARTIFICIAL TEARS DROPS EACHEYE SCH ×3 (05:01→21:13)
[2018-02-07] MEDS: ZOSYN VIAL 3.375 GM 3.375 GM in NS 100 ML IV + SPIKE MINIBAG* 100 ML IV SCH ×3 (05:01→21:11)
[2018-02-07 05:51] LABS: ALANINE AMINOTRANSFERASE 22 Units/L (12-78); ALBUMIN 2.7 g/dL (3.4-5.0); ALKALINE PHOSPHATASE 49 Units/L (46-116); ASPARTATE AMINO TRANSFERASE 21 Units/L (15-37); BLOOD UREA NITROGEN 21 mg/dL (7-18); CALCIUM 8.2 mg/dL (8.5-10.1); CARBON DIOXIDE 26.1 mmol/L (21-32); CHLORIDE 102 mmol/L (98-107); COR CA(FOR HYPOALB) 9.2 mg/dL (8.5-10.1); COR NA(FOR HYPERGLY) 137 mmol/L (136-145); CREATININE 1.07 mg/dL (0.55-1.02); SODIUM 136 mmol/L (136-145); TOTAL PROTEIN 5.9 g/dL (6.4-8.2); eGFR BLACK RACES > 60 (>60); eGFR NON BLACK RACES 52 (>60)
[2018-02-07 05:52] LABS: BASOPHILS # (AUTO) 0.1 X10^3/uL (0.0-0.1); EOSINOPHILS # (AUTO) 0.1 x10^3/uL (0.0-0.2); EOSINOPHILS % (AUTO) 2.3 % (0.9-2.9); HEMATOCRIT 34.2 % (36.0-47.0); HEMOGLOBIN 12.2 g/dL (12.0-16.0); LYMPHOCYTES # (AUTO) 1.8 X10^3/uL (1.3-2.9); LYMPHOCYTES % (AUTO) 31.8 % (21.0-51.0); MEAN CORPUSCULAR HEMOGLOBIN 31.3 pg (27.0-34.0); MEAN CORPUSCULAR HGB CONC 35.5 g/dL (33.0-35.0); MEAN CORPUSCULAR VOLUME 88.2 fL (80.0-100.0); MEAN PLATELET VOLUME 7.5 fL (7.4-11.0); MONOCYTES # (AUTO) 0.8 x10^3/uL (0.3-0.8); MONOCYTES % (AUTO) 13.7 % (0.0-13.0); NEUTROPHILS % (AUTO) 51.2 % (42.0-75.0); PLATELET COUNT 319 X10^3/uL (150.0-450.0); RED BLOOD COUNT 3.88 X10^6/uL (3.5-5.4); RED CELL DISTRIBUTION WIDTH 14.2 % (11.6-16.5); WHITE BLOOD COUNT 5.8 X10^3/uL (3.6-10.0)
[2018-02-07] MEDS: APRESOLINE TAB 25 MG PO SCH ×3 (06:37→21:12)
[2018-02-07] MEDS: LOVENOX INJ 60 MG SYR SC SCH (09:10)
[2018-02-07] MEDS: ZESTRIL TAB 10 MG PO SCH ×2 (09:11→21:12)
[2018-02-07] MEDS: ZANTAC PO SCH ×2 (09:11→21:11)
[2018-02-07] MEDS: JANUVIA PO SCH (09:11)
[2018-02-07] MEDS: EFFEXOR XR 37.5 MG CAP PO SCH (09:11)
[2018-02-07] MEDS: VITAMIN C PO SCH ×2 (09:11→21:12)
[2018-02-07] MEDS: TAB-A-VITE PO SCH (09:11)
[2018-02-07] MEDS: COLACE CAP 100 MG PO SCH ×2 (09:13→21:15)
[2018-02-07] MEDS: MIRALAX POWDER (1 DOSE 17GM) PO SCH (09:13)
[2018-02-07] MEDS: CATAPRES TAB 0.3 MG PO SCH ×2 (09:20→21:11)
[2018-02-07] MEDS: CALAN SR 180 MG PO SCH (09:20)
[2018-02-07] MEDS: MYLICON TAB 80 MG CHEW PO SCH ×2 (09:20→21:11)
[2018-02-07] MEDS: CITRACAL + VITAMIN D PO SCH (09:20)
[2018-02-07] MEDS: TRICOR TAB 48 MG PO SCH (09:20)
[2018-02-07] MEDS: QUESTRAN PO SCH (09:21)
[2018-02-07] MEDS: LEVEMIR SC SCH ×2 (09:35→21:15)
[2018-02-07] MEDS: ELIQUIS PO SCH ×2 (10:19→21:11)
[2018-02-07] MEDS: ZOFRAN INJ 4 MG VIAL IVP PRN ×2 (11:20→21:11)
[2018-02-07] MEDS: SYNTHROID 50 mcg TAB PO SCH (15:39)
--- NOTE | 2018-02-07 20:08 | PCM.PROG ---
Progress Note - Progress Note for Day of Date: 02/06/18 - Subjective Subjective: IS BEING TREATED FOR ATRIAL FIBRILLATION WITH RVR AND ACCELERATED HYPERTENSION. TODAY, SHE IS ALERT AND ORIENTED, LYING IN BED ON MORNING ROUNDS. SHE IS NOTED WITH COMPLAINTS OF SHORTNESS OF BREATH AT THIS TIME. SHE IS IN NO APPARENT DISTRESS. FACILITIES CUSTODIAN CONTINUES TO REVEAL ATRIAL FIBRILLATION WITH HEART RATE 100-110 BPM. VITALS ARE 97.9-102-19-98%-127/ 60. ABNORMAL LAB VALUES INCLUDE THE FOLLOWING: HGB 11.9, HCT 33.6, SODIUM 131, POTASSIUM 3.2, CHLORIDE 96, BUN 41, CREATININE 1.32, GLUOCSE 165, CALCIUM 8.3, TOTAL PROTEIN 6.1, ALBUMIN 2.8. CARDIAC ENZYMES HAVE BEEN WITHIN NORMAL LIMITS. SHE IS CURRENTLY RECEIVING VERAPAMIL DAILY AND LOVENOX. WE WILL CONTINUE WITH CURRENT PLAN OF CARE TODAY. OTHERWISE, WE WILL FOLLOW UP WITH AM LABS AND CONTINUE TO MONITOR PATIENT. - Past Medical Family Social History Past Med/Fam/Surg Hx: No changes since H&P Allergies: Allergies tuberculin,PPD,multi-puncture Allergy (Verified 12/16/17 20:21) - Review of Systems ROS: No change since H&P - Vital Signs and I&O's Vital Signs: Temperature 97.4 F Pulse Rate [Apical] 62 Pulse Rate [Right Radial] 102 Pulse Rate 167 Respiratory Rate 18 Blood Pressure [Right Arm] 182/81 Blood Pressure [Left Arm] 137/95 Blood Pressure 215/100 O2 Sat by Pulse Oximetry 100 Intake and Output: Intake & Output 02/05/18 02/06/18 02/07/18 02/08/18 11:59 11:59 11:59 11:59 Intake Total 1941 4018 1521 Output Total 2600 1625 Balance 2 1418 -104 - Physical Exam Oriented: Normal Eyes: Normal Ear: Normal Nose: Normal Throat: Normal Respiratory: Diminished Cardiovascular: Tachycardia. negative: S3, S4, Murmur : Normal Auscultation: Bowel Sounds: Normal Palpation: Normal Tenderness: RUQ, Epigastric Skin: Normal Musculoskeletal: Normal Psychiatric: Normal Mood Description: Calm Affect: Normal Speech Pattern: Clear, Appropriate - Laboratory and Diagnostics Result Diagrams: 02/07/18 04:20 02/07/18 04:20 Labs: 02/05/18 16:34 Blood Blood Culture - Preliminary 02/05/18 16:16 Blood Blood Culture - Preliminary Laboratory WBC 5.8 X10^3/uL (3.6-10.0) 02/07/18 04:20 RBC 3.88 X10^6/uL (3.5-5.4) 02/07/18 04:20 Hgb 12.2 g/dL (12.0-16.0) 02/07/18 04:20 Hct 34.2 % (36.0-47.0) L 02/07/18 04:20 MCV 88.2 fL (80.0-100.0) 02/07/18 04:20 MCH 31.3 pg (27.0-34.0) 02/07/18 04:20 MCHC 35.5 g/dL (33.0-35.0) H 02/07/18 04:20 RDW 14.2 % (11.6-16.5) 02/07/18 04:20 Plt Count 319 X10^3/uL (150.0-450.0) 02/07/18 04:20 Plt Count Comment Increased (ADEQUATE) A 02/05/18 09:35 MPV 7.5 fL (7.4-11.0) 02/07/18 04:20 Neut % (Auto) 51.2 % (42.0-75.0) 02/07/18 04:20 Lymph % (Auto) 31.8 % (21.0-51.0) 02/07/18 04:20 [place] % (Auto) 13.7 % (0.0-13.0) H 02/07/18 04:20 Eos % (Auto) 2.3 % (0.9-2.9) 02/07/18 04:20 Baso % (Auto) 1.0 % (0.2-1.0) 02/07/18 04:20 Neut # (Auto) 3.0 x10^3/uL (2.2-4.8) 02/07/18 04:20 Lymph # (Auto) 1.8 X10^3/uL (1.3-2.9) 02/07/18 04:20 [place] # (Auto) 0.8 x10^3/uL (0.3-0.8) 02/07/18 04:20 Eos # (Auto) 0.1 x10^3/uL (0.0-0.2) 02/07/18 04:20 Baso # (Auto) 0.1 X10^3/uL (0.0-0.1) 02/07/18 04:20 Absolute Nucleated RBC 0.0 /100WBC 02/07/18 04:20 Plt Morphology Comment Normal (NORMAL) 02/05/18 09:35 RBC Morphology Normal (NORMAL) 02/05/18 09:35 INR Target Range - 02/05/18 09:35 INR 1.03 (0.8-1.3) 02/05/18 09:35 APTT 30.0 SECONDS (22.9-36.5) 02/05/18 09:35 PTT Comment - 02/05/18 09:35 Sodium 136 mmol/L (136-145) 02/07/18 04:20 Corrected Sodium 137 mmol/L (136-145) 02/07/18 04:20 Potassium 3.5 mmol/L (3.5-5.1) 02/07/18 04:20 Chloride 102 mmol/L (98-107) 02/07/18 04:20 Carbon Dioxide 26.1 mmol/L (21-32) 02/07/18 04:20 BUN 21 mg/dL (7-18) H 02/07/18 04:20 Creatinine 1.07 mg/dL (0.55-1.02) H 02/07/18 04:20 Est GFR (MDRD) Af Amer > 60 (>60) 02/07/18 04:20 Est GFR (MDRD) Non-Af 52 (>60) L 02/07/18 04:20 Glucose 142 mg/dL (65-99) H 02/07/18 04:20 POC Glucose (mg/dL) 115 mg/dL (65-99) H 02/07/18 16:00 Lactic Acid 1.0 mmol/L (0.4-2.0) 02/06/18 16:00 Calcium 8.2 mg/dL (8.5-10.1) L 02/07/18 04:20 Corrected Calcium 9.2 mg/dL (8.5-10.1) 02/07/18 04:20 Magnesium 2.0 mg/dL (1.7-2.9) 02/06/18 07:10 Total Bilirubin 0.30 mg/dL (0.2-1.0) 02/07/18 04:20 AST 21 Units/L (15-37) 02/07/18 04:20 ALT 22 Units/L (12-78) 02/07/18 04:20 Alkaline Phosphatase 49 Units/L (46-116) 02/07/18 04:20 Creatine Kinase 28 Units/L (26-192) 02/07/18 02:54 CK-MB (CK-2) < 1.0 ng/mL (0-4.0) 02/07/18 02:54 CK/CKMB % Calc 3.6 % (<4) 02/07/18 02:54 Troponin I 0.03 ng/mL (0-1.5) 02/07/18 02:54 Total Protein 5.9 g/dL (6.4-8.2) L 02/07/18 04:20 Albumin 2.7 g/dL (3.4-5.0) L 02/07/18 04:20 Globulin 3.2 g/dL (2.5-4.5) 02/07/18 04:20 Albumin/Globulin Ratio 0.8 Ratio (1.1-2.1) L 02/07/18 04:20 Amylase 23 Units/L (25-115) L 02/05/18 09:35 Lipase 97 Units/L (73-393) 02/05/18 09:35 Specimen Type Catherized urine 02/06/18 16:25 Urine Color Yellow (YELLOW) 02/06/18 16:25 Urine Appearance Clear (CLEAR) 02/06/18 16:25 Urine pH 7.0 (5.0 - 8.0) 02/06/18 16:25 Ur Specific [place] 1.005 (1.000-1.030) 02/06/18 16:25 Urine Protein 3+ (NEGATIVE) 02/06/18 16:25 Urine Glucose (UA) 4+ (NEGATIVE) 02/06/18 16:25 Urine Ketones 1+ (NEGATIVE) 02/06/18 16:25 Urine Occult Blood Negative (NEGATIVE) 02/06/18 16:25 Urine Nitrite Negative (NEGATIVE) 02/06/18 16:25 Urine Bilirubin Negative (NEGATIVE) 02/06/18 16:25 Urine Urobilinogen Normal (NORMAL) 02/06/18 16:25 Ur Leukocyte Esterase Negative (NEGATIVE) 02/06/18 16:25 Urine RBC None seen /HPF (NONE SEEN) 02/06/18 16:25 Urine WBC 0-2 /HPF (NONE SEEN) 02/06/18 16:25 Ur Squamous Epith Cells Rare /HPF (NEGATIVE) 02/06/18 16:25 Amorphous Sediment Trace /HPF (NEGATIVE) 02/06/18 16:25 Urine Bacteria Negative /HPF (NEGATIVE) 02/06/18 16:25 Urine Mucus Rare /HPF (NEGATIVE) 02/05/18 12:46 Ur Culture Indicated? No/not indicated 02/06/18 16:25 Digoxin 0.35 ng/mL (0.9-2) L 02/07/18 02:54 - Plan (1) Atrial fibrillation with rapid ventricular response Status: Acute Plan: verapamil 180mg po daily, cardiac exercise physiologist, supplemental oxygen, continue to monitor (2) Abdominal pain Status: Acute Qualifiers: Abdominal location: right upper quadrant Qualified Code(s): R10.11 - Right upper quadrant pain Plan: norco, continue to monitor (3) Nausea & vomiting Status: Acute Qualifiers: Vomiting type: hematemesis Qualified Code(s): K92.0 - Hematemesis Plan: phenergan po, zofran 4mg iv q8h prn, continue to monitor
[2018-02-07] MEDS: CALAN (PLAIN) 120 MG PO SCH (21:11)
[2018-02-07] MEDS: TRAVATAN Z EACHEYE SCH (21:12)
[2018-02-07] MEDS: LIPITOR TAB 20 MG PO SCH (21:12)
[2018-02-07] MEDS: SNACK - Diabetic Appropriate PO SCH (21:14)
--- NOTE | 2018-02-07 21:22 | PCM.PROG ---
Progress Note - Progress Note for Day of Date: 02/07/18 - Subjective Subjective: IS BEING TREATED FOR ATRIAL FIBRILLATION WITH RVR AND ACCELERATED HYPERTENSION. SHE CONTINUED TO BE IN ATRIAL FIBRILLATION WITH RVR. TODAY, SHE IS ALERT AND ORIENTED, LYING IN BED ON MORNING ROUNDS. SHE IS NOTED WITH COMPLAINTS OF SHORTNESS OF BREATH AT THIS TIME. 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 VITALS ARE 97.2-62-21-96%-113/58. SHE IS HEMODYNAMICALLY STABLE TODAY. CARDIAC ENZYMES HAVE BEEN WITHIN NORMAL LIMITS. WE INCREASED VERAPAMIL TO 180MG PO DAILY. TODAY, WE WILL DISCONTINUE THAT DOSE AND START VERAPAMIL 120MG PO BID AND START ELIQUIS 2.5MG PO BID. WE WILL DISCONTINUE THE LOVENOX. OTHERWISE, WE WILL CONTINUE WITH CURRENT PLAN OF CARE TODAY. OTHERWISE, WE WILL FOLLOW UP WITH AM LABS AND CONTINUE TO MONITOR PATIENT. - Past Medical Family Social History Past Med/Fam/Surg Hx: No changes since H&P Allergies: Allergies tuberculin,PPD,multi-puncture Allergy (Verified 12/16/17 20:21) - Review of Systems ROS: No change since H&P - Vital Signs and I&O's Vital Signs: Temperature 97.4 F Pulse Rate [Apical] 62 Pulse Rate [Right Radial] 102 Pulse Rate 167 Respiratory Rate 18 Blood Pressure [Right Arm] 182/81 Blood Pressure [Left Arm] 137/95 Blood Pressure 215/100 O2 Sat by Pulse Oximetry 100 Intake and Output: Intake & Output 02/05/18 02/06/18 02/07/18 02/08/18 11:59 11:59 11:59 11:59 Intake Total 2 4018 1521 Output Total 2600 1625 Balance 2 1418 -104 - Physical Exam Oriented: Normal Eyes: Normal Ear: Normal Nose: Normal Throat: Normal Respiratory: Diminished Cardiovascular: Normal. negative: S3, S4, Murmur : Normal Auscultation: Bowel Sounds: Normal Palpation: Normal Tenderness: RUQ, Epigastric Skin: Normal Musculoskeletal: Normal Psychiatric: Normal Mood Description: Calm Affect: Normal Speech Pattern: Clear, Appropriate - Laboratory and Diagnostics Result Diagrams: 02/07/18 04:20 02/07/18 04:20 Labs: 02/05/18 16:34 Blood Blood Culture - Preliminary 02/05/18 16:16 Blood Blood Culture - Preliminary Laboratory WBC 5.8 X10^3/uL (3.6-10.0) 02/07/18 04:20 RBC 3.88 X10^6/uL (3.5-5.4) 02/07/18 04:20 Hgb 12.2 g/dL (12.0-16.0) 02/07/18 04:20 Hct 34.2 % (36.0-47.0) L 02/07/18 04:20 MCV 88.2 fL (80.0-100.0) 02/07/18 04:20 MCH 31.3 pg (27.0-34.0) 02/07/18 04:20 MCHC 35.5 g/dL (33.0-35.0) H 02/07/18 04:20 RDW 14.2 % (11.6-16.5) 02/07/18 04:20 Plt Count 319 X10^3/uL (150.0-450.0) 02/07/18 04:20 Plt Count Comment Increased (ADEQUATE) A 02/05/18 09:35 MPV 7.5 fL (7.4-11.0) 02/07/18 04:20 Neut % (Auto) 51.2 % (42.0-75.0) 02/07/18 04:20 Lymph % (Auto) 31.8 % (21.0-51.0) 02/07/18 04:20 [place] % (Auto) 13.7 % (0.0-13.0) H 02/07/18 04:20 Eos % (Auto) 2.3 % (0.9-2.9) 02/07/18 04:20 Baso % (Auto) 1.0 % (0.2-1.0) 02/07/18 04:20 Neut # (Auto) 3.0 x10^3/uL (2.2-4.8) 02/07/18 04:20 Lymph # (Auto) 1.8 X10^3/uL (1.3-2.9) 02/07/18 04:20 [place] # (Auto) 0.8 x10^3/uL (0.3-0.8) 02/07/18 04:20 Eos # (Auto) 0.1 x10^3/uL (0.0-0.2) 02/07/18 04:20 Baso # (Auto) 0.1 X10^3/uL (0.0-0.1) 02/07/18 04:20 Absolute Nucleated RBC 0.0 /100WBC 02/07/18 04:20 Plt Morphology Comment Normal (NORMAL) 02/05/18 09:35 RBC Morphology Normal (NORMAL) 02/05/18 09:35 INR Target Range - 02/05/18 09:35 INR 1.03 (0.8-1.3) 02/05/18 09:35 APTT 30.0 SECONDS (22.9-36.5) 02/05/18 09:35 PTT Comment - 02/05/18 09:35 Sodium 136 mmol/L (136-145) 02/07/18 04:20 Corrected Sodium 137 mmol/L (136-145) 02/07/18 04:20 Potassium 3.5 mmol/L (3.5-5.1) 02/07/18 04:20 Chloride 102 mmol/L (98-107) 02/07/18 04:20 Carbon Dioxide 26.1 mmol/L (21-32) 02/07/18 04:20 BUN 21 mg/dL (7-18) H 02/07/18 04:20 Creatinine 1.07 mg/dL (0.55-1.02) H 02/07/18 04:20 Est GFR (MDRD) Af Amer > 60 (>60) 02/07/18 04:20 Est GFR (MDRD) Non-Af 52 (>60) L 02/07/18 04:20 Glucose 142 mg/dL (65-99) H 02/07/18 04:20 POC Glucose (mg/dL) 68 mg/dL (65-99) 02/07/18 20:39 Lactic Acid 1.0 mmol/L (0.4-2.0) 02/06/18 16:00 Calcium 8.2 mg/dL (8.5-10.1) L 02/07/18 04:20 Corrected Calcium 9.2 mg/dL (8.5-10.1) 02/07/18 04:20 Magnesium 2.0 mg/dL (1.7-2.9) 02/06/18 07:10 Total Bilirubin 0.30 mg/dL (0.2-1.0) 02/07/18 04:20 AST 21 Units/L (15-37) 02/07/18 04:20 ALT 22 Units/L (12-78) 02/07/18 04:20 Alkaline Phosphatase 49 Units/L (46-116) 02/07/18 04:20 Creatine Kinase 28 Units/L (26-192) 02/07/18 02:54 CK-MB (CK-2) < 1.0 ng/mL (0-4.0) 02/07/18 02:54 CK/CKMB % Calc 3.6 % (<4) 02/07/18 02:54 Troponin I 0.03 ng/mL (0-1.5) 02/07/18 02:54 Total Protein 5.9 g/dL (6.4-8.2) L 02/07/18 04:20 Albumin 2.7 g/dL (3.4-5.0) L 02/07/18 04:20 Globulin 3.2 g/dL (2.5-4.5) 02/07/18 04:20 Albumin/Globulin Ratio 0.8 Ratio (1.1-2.1) L 02/07/18 04:20 Amylase 23 Units/L (25-115) L 02/05/18 09:35 Lipase 97 Units/L (73-393) 02/05/18 09:35 Specimen Type Catherized urine 02/06/18 16:25 Urine Color Yellow (YELLOW) 02/06/18 16:25 Urine Appearance Clear (CLEAR) 02/06/18 16:25 Urine pH 7.0 (5.0 - 8.0) 02/06/18 16:25 Ur Specific [place] 1.005 (1.000-1.030) 02/06/18 16:25 Urine Protein 3+ (NEGATIVE) 02/06/18 16:25 Urine Glucose (UA) 4+ (NEGATIVE) 02/06/18 16:25 Urine Ketones 1+ (NEGATIVE) 02/06/18 16:25 Urine Occult Blood Negative (NEGATIVE) 02/06/18 16:25 Urine Nitrite Negative (NEGATIVE) 02/06/18 16:25 Urine Bilirubin Negative (NEGATIVE) 02/06/18 16:25 Urine Urobilinogen Normal (NORMAL) 02/06/18 16:25 Ur Leukocyte Esterase Negative (NEGATIVE) 02/06/18 16:25 Urine RBC None seen /HPF (NONE SEEN) 02/06/18 16:25 Urine WBC 0-2 /HPF (NONE SEEN) 02/06/18 16:25 Ur Squamous Epith Cells Rare /HPF (NEGATIVE) 02/06/18 16:25 Amorphous Sediment Trace /HPF (NEGATIVE) 02/06/18 16:25 Urine Bacteria Negative /HPF (NEGATIVE) 02/06/18 16:25 Urine Mucus Rare /HPF (NEGATIVE) 02/05/18 12:46 Ur Culture Indicated? No/not indicated 02/06/18 16:25 Digoxin 0.35 ng/mL (0.9-2) L 02/07/18 02:54 - Plan (1) Atrial fibrillation with rapid ventricular response Status: Acute Plan: verapamil 100mg po BID, ELIQUIS 2.5MG PO BID, personnel monitor, supplemental oxygen, continue to monitor (2) Abdominal pain Status: Acute Qualifiers: Abdominal location: right upper quadrant Qualified Code(s): R10.11 - Right upper quadrant pain Plan: norco, continue to monitor (3) Nausea & vomiting Status: Acute Qualifiers: Vomiting type: hematemesis Qualified Code(s): K92.0 - Hematemesis Plan: phenergan po, zofran 4mg iv q8h prn, continue to monitor
[2018-02-08] MEDS: APRESOLINE TAB 25 MG PO SCH ×3 (05:13→21:28)
[2018-02-08] MEDS: ARTIFICIAL TEARS DROPS EACHEYE SCH ×3 (06:07→21:28)
[2018-02-08 06:08] LABS: EOSINOPHILS # (AUTO) 0.2 x10^3/uL (0.0-0.2); EOSINOPHILS % (AUTO) 4.9 % (0.9-2.9); HEMATOCRIT 30.9 % (36.0-47.0); HEMOGLOBIN 10.9 g/dL (12.0-16.0); LYMPHOCYTES # (AUTO) 1.6 X10^3/uL (1.3-2.9); LYMPHOCYTES % (AUTO) 38.7 % (21.0-51.0); MEAN CORPUSCULAR HGB CONC 35.4 g/dL (33.0-35.0); MEAN CORPUSCULAR VOLUME 87.4 fL (80.0-100.0); MEAN PLATELET VOLUME 7.5 fL (7.4-11.0); MONOCYTES # (AUTO) 0.6 x10^3/uL (0.3-0.8); MONOCYTES % (AUTO) 13.4 % (0.0-13.0); NEUTROPHILS # (AUTO) 1.8 x10^3/uL (2.2-4.8); PLATELET COUNT 288 X10^3/uL (150.0-450.0); RED BLOOD COUNT 3.53 X10^6/uL (3.5-5.4); RED CELL DISTRIBUTION WIDTH 14.3 % (11.6-16.5); WHITE BLOOD COUNT 4.2 X10^3/uL (3.6-10.0)
[2018-02-08] MEDS: ZOSYN VIAL 3.375 GM 3.375 GM in NS 100 ML IV + SPIKE MINIBAG* 100 ML IV SCH ×3 (06:08→21:28)
[2018-02-08 06:11] LABS: ALANINE AMINOTRANSFERASE 18 Units/L (12-78); ALBUMIN 2.5 g/dL (3.4-5.0); ALKALINE PHOSPHATASE 41 Units/L (46-116); ASPARTATE AMINO TRANSFERASE 16 Units/L (15-37); BLOOD UREA NITROGEN 13 mg/dL (7-18); CALCIUM 8.5 mg/dL (8.5-10.1); CARBON DIOXIDE 27.6 mmol/L (21-32); CHLORIDE 105 mmol/L (98-107); COR CA(FOR HYPOALB) 9.7 mg/dL (8.5-10.1); CREATININE 0.92 mg/dL (0.55-1.02); SODIUM 139 mmol/L (136-145); TOTAL PROTEIN 5.6 g/dL (6.4-8.2); eGFR BLACK RACES > 60 (>60); eGFR NON BLACK RACES > 60 (>60)
[2018-02-08] MEDS: NS 1000 ML 1,000 ML IV SCH ×3 (07:12→20:29)
[2018-02-08] MEDS: K-RIDER 10 MEQ/NS 100 ML 10 MEQ/100 ML BAG IV PRN ×2 (07:12→08:30)
[2018-02-08] MEDS: VITAMIN C PO SCH ×2 (08:49→20:28)
[2018-02-08] MEDS: ZESTRIL TAB 10 MG PO SCH ×2 (08:49→20:28)
[2018-02-08] MEDS: QUESTRAN PO SCH (08:49)
[2018-02-08] MEDS: TAB-A-VITE PO SCH (08:49)
[2018-02-08] MEDS: CITRACAL + VITAMIN D PO SCH (08:51)
[2018-02-08] MEDS: CATAPRES TAB 0.3 MG PO SCH ×2 (08:52→20:23)
[2018-02-08] MEDS: ZANTAC PO SCH ×2 (08:53→20:28)
[2018-02-08] MEDS: ELIQUIS PO SCH ×2 (08:53→20:24)
[2018-02-08] MEDS: JANUVIA PO SCH (08:53)
[2018-02-08] MEDS: MYLICON TAB 80 MG CHEW PO SCH ×2 (08:53→20:26)
[2018-02-08] MEDS: TRICOR TAB 48 MG PO SCH (08:54)
[2018-02-08] MEDS: EFFEXOR XR 37.5 MG CAP PO SCH (08:55)
[2018-02-08] MEDS: CALAN (PLAIN) 120 MG PO SCH ×2 (08:55→20:23)
[2018-02-08] MEDS: COLACE CAP 100 MG PO SCH ×2 (08:59→20:23)
[2018-02-08] MEDS: MIRALAX POWDER (1 DOSE 17GM) PO SCH (08:59)
[2018-02-08] MEDS: LEVEMIR SC SCH ×2 (09:17→20:24)
--- NOTE | 2018-02-08 11:32 | PCM.PROG ---
Progress Note - Progress Note for Day of Date: 02/08/18 - Subjective Subjective: IS BEING TREATED FOR ATRIAL FIBRILLATION WITH RVR AND ACCELERATED HYPERTENSION. TODAY, SHE IS ALERT AND ORIENTED, LYING IN BED ON MORNING ROUNDS. SHE IS NOTED WITH COMPLAINTS OF SHORTNESS OF BREATH AT THIS TIME , BUT DOES REPORT GENERALIZED WEAKNESS. SCIENTOLOGIST SHOWS NORMAL SINUS RHYTHM WITH HR IN THE 60S. HER VITALS TODAY ARE 97.3-62-15-100%-196/79. SHE IS HEMODYNAMICALLY STABLE TODAY. STAFF REPORTS THAT PATIENT CURRENTLY RECEIVES LEVEMIR 30MG SC BID. THEY REPORT THAT HER BLOOD GLUCOSE OFTEN DROPS INTO THE 60s -70s BEFORE HER NEXT DOSE IS DUE. TODAY, WE WILL DECREASE LEVEMIR TO 20MG SC BID. OTHERWISE, WE WILL CONTINUE WITH CURRENT PLAN OF CARE TODAY. WE WILL FOLLOW UP WITH AM LABS AND CONTINUE TO MONITOR PATIENT. - Past Medical Family Social History Past Med/Fam/Surg Hx: No changes since H&P Allergies: Allergies tuberculin,PPD,multi-puncture Allergy (Verified 12/16/17 20:21) - Review of Systems ROS: No change since H&P - Vital Signs and I&O's Vital Signs: Temperature 97.3 F Pulse Rate [Apical] 52 Pulse Rate [Right Radial] 102 Pulse Rate 167 Respiratory Rate 18 Blood Pressure [Right Arm] 182/81 Blood Pressure [Left Arm] 145/68 Blood Pressure 215/100 O2 Sat by Pulse Oximetry 100 Intake and Output: Intake & Output 02/05/18 02/06/18 02/07/18 02/08/18 11:59 11:59 11:59 11:59 Intake Total 1942 3591 5816 Output Total 7860 2535 Balance 1942 1418 391 - Physical Exam Oriented: Normal Eyes: Normal Ear: Normal Nose: Normal Throat: Normal Respiratory: Diminished Cardiovascular: Normal. negative: S3, S4, Murmur : Normal Auscultation: Bowel Sounds: Normal Palpation: Normal Tenderness: RUQ, Epigastric Skin: Normal Musculoskeletal: Normal Psychiatric: Normal Mood Description: Calm Affect: Normal Speech Pattern: Clear, Appropriate - Laboratory and Diagnostics Result Diagrams: 02/08/18 04:10 02/08/18 04:10 Labs: 02/05/18 16:34 Blood Blood Culture - Preliminary 02/05/18 16:16 Blood Blood Culture - Preliminary Laboratory WBC 4.2 X10^3/uL (3.6-10.0) 02/08/18 04:10 RBC 3.53 X10^6/uL (3.5-5.4) 02/08/18 04:10 Hgb 10.9 g/dL (12.0-16.0) L 02/08/18 04:10 Hct 30.9 % (36.0-47.0) L 02/08/18 04:10 MCV 87.4 fL (80.0-100.0) 02/08/18 04:10 MCH 31.0 pg (27.0-34.0) 02/08/18 04:10 MCHC 35.4 g/dL (33.0-35.0) H 02/08/18 04:10 RDW 14.3 % (11.6-16.5) 02/08/18 04:10 Plt Count 288 X10^3/uL (150.0-450.0) 02/08/18 04:10 Plt Count Comment Increased (ADEQUATE) A 02/05/18 09:35 MPV 7.5 fL (7.4-11.0) 02/08/18 04:10 Neut % (Auto) 42.0 % (42.0-75.0) 02/08/18 04:10 Lymph % (Auto) 38.7 % (21.0-51.0) 02/08/18 04:10 [place] % (Auto) 13.4 % (0.0-13.0) H 02/08/18 04:10 Eos % (Auto) 4.9 % (0.9-2.9) H 02/08/18 04:10 Baso % (Auto) 1.0 % (0.2-1.0) 02/08/18 04:10 Neut # (Auto) 1.8 x10^3/uL (2.2-4.8) L 02/08/18 04:10 Lymph # (Auto) 1.6 X10^3/uL (1.3-2.9) 02/08/18 04:10 [place] # (Auto) 0.6 x10^3/uL (0.3-0.8) 02/08/18 04:10 Eos # (Auto) 0.2 x10^3/uL (0.0-0.2) 02/08/18 04:10 Baso # (Auto) 0.0 X10^3/uL (0.0-0.1) 02/08/18 04:10 Absolute Nucleated RBC 0.2 /100WBC 02/08/18 04:10 Plt Morphology Comment Normal (NORMAL) 02/05/18 09:35 RBC Morphology Normal (NORMAL) 02/05/18 09:35 INR Target Range - 02/05/18 09:35 INR 1.03 (0.8-1.3) 02/05/18 09:35 APTT 30.0 SECONDS (22.9-36.5) 02/05/18 09:35 PTT Comment - 02/05/18 09:35 Sodium 139 mmol/L (136-145) 02/08/18 04:10 Corrected Sodium TNP 02/08/18 04:10 Potassium 3.4 mmol/L (3.5-5.1) L 02/08/18 04:10 Chloride 105 mmol/L (98-107) 02/08/18 04:10 Carbon Dioxide 27.6 mmol/L (21-32) 02/08/18 04:10 BUN 13 mg/dL (7-18) 02/08/18 04:10 Creatinine 0.92 mg/dL (0.55-1.02) 02/08/18 04:10 Est GFR (MDRD) Af Amer > 60 (>60) 02/08/18 04:10 Est GFR (MDRD) Non-Af > 60 (>60) 02/08/18 04:10 Glucose 78 mg/dL (65-99) 02/08/18 04:10 POC Glucose (mg/dL) 140 mg/dL (65-99) H 02/08/18 11:29 Lactic Acid 1.0 mmol/L (0.4-2.0) 02/06/18 16:00 Calcium 8.5 mg/dL (8.5-10.1) 02/08/18 04:10 Corrected Calcium 9.7 mg/dL (8.5-10.1) 02/08/18 04:10 Magnesium 2.0 mg/dL (1.7-2.9) 02/06/18 07:10 Total Bilirubin 0.30 mg/dL (0.2-1.0) 02/08/18 04:10 AST 16 Units/L (15-37) 02/08/18 04:10 ALT 18 Units/L (12-78) 02/08/18 04:10 Alkaline Phosphatase 41 Units/L (46-116) L 02/08/18 04:10 Creatine Kinase 28 Units/L (26-192) 02/07/18 02:54 CK-MB (CK-2) < 1.0 ng/mL (0-4.0) 02/07/18 02:54 CK/CKMB % Calc 3.6 % (<4) 02/07/18 02:54 Troponin I 0.03 ng/mL (0-1.5) 02/07/18 02:54 Total Protein 5.6 g/dL (6.4-8.2) L 02/08/18 04:10 Albumin 2.5 g/dL (3.4-5.0) L 02/08/18 04:10 Globulin 3.1 g/dL (2.5-4.5) 02/08/18 04:10 Albumin/Globulin Ratio 0.8 Ratio (1.1-2.1) L 02/08/18 04:10 Amylase 23 Units/L (25-115) L 02/05/18 09:35 Lipase 97 Units/L (73-393) 02/05/18 09:35 Specimen Type Catherized urine 02/06/18 16:25 Urine Color Yellow (YELLOW) 02/06/18 16:25 Urine Appearance Clear (CLEAR) 02/06/18 16:25 Urine pH 7.0 (5.0 - 8.0) 02/06/18 16:25 Ur Specific [place] 1.005 (1.000-1.030) 02/06/18 16:25 Urine Protein 3+ (NEGATIVE) 02/06/18 16:25 Urine Glucose (UA) 4+ (NEGATIVE) 02/06/18 16:25 Urine Ketones 1+ (NEGATIVE) 02/06/18 16:25 Urine Occult Blood Negative (NEGATIVE) 02/06/18 16:25 Urine Nitrite Negative (NEGATIVE) 02/06/18 16:25 Urine Bilirubin Negative (NEGATIVE) 02/06/18 16:25 Urine Urobilinogen Normal (NORMAL) 02/06/18 16:25 Ur Leukocyte Esterase Negative (NEGATIVE) 02/06/18 16:25 Urine RBC None seen /HPF (NONE SEEN) 02/06/18 16:25 Urine WBC 0-2 /HPF (NONE SEEN) 02/06/18 16:25 Ur Squamous Epith Cells Rare /HPF (NEGATIVE) 02/06/18 16:25 Amorphous Sediment Trace /HPF (NEGATIVE) 02/06/18 16:25 Urine Bacteria Negative /HPF (NEGATIVE) 02/06/18 16:25 Urine Mucus Rare /HPF (NEGATIVE) 02/05/18 12:46 Ur Culture Indicated? 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 oxygen, continue to monitor (2) Abdominal pain Status: Acute Qualifiers: Abdominal location: right upper quadrant Qualified Code(s): R10.11 - Right upper quadrant pain Plan: norco, continue to monitor (3) Nausea & vomiting Status: Acute Qualifiers: Vomiting type: hematemesis Qualified Code(s): K92.0 - Hematemesis Plan: phenergan po, zofran 4mg iv q8h prn, continue to monitor (4) Diabetes mellitus type 1, uncontrolled Status: Acute Qualifiers: Diabetes mellitus complication status: with unspecified complications Qualified Code(s): E10.8 - Type 1 diabetes mellitus with unspecified complications; E10.65 - Type 1 diabetes mellitus with hyperglycemia; E10.65 - Type 1 diabetes mellitus with hyperglycemia; E10.65 - Type 1 diabetes mellitus with hyperglycemia; E10.65 - Type 1 diabetes mellitus with hyperglycemia Plan: LEVEMIR 20 UNITS SC BID, HUMULIN R SLIDING SCALE, MONITOR OTBS
[2018-02-08] MEDS: SYNTHROID 50 mcg TAB PO SCH (16:13)
[2018-02-08 19:45] LABS: STOOL FOR WBC NEGATIVE (NEGATIVE)
[2018-02-08 19:50] LABS: CRYPTOSPORIDIUM PARVUM ANTIGEN NEGATIVE (NEGATIVE); GIARDIA LAMBLIA ANTIGEN NEGATIVE (NEGATIVE)
[2018-02-08] MEDS: SNACK - Diabetic Appropriate PO SCH (20:23)
[2018-02-08] MEDS: LIPITOR TAB 20 MG PO SCH (20:26)
[2018-02-08] MEDS: TRAVATAN Z EACHEYE SCH (20:27)
[2018-02-09] MEDS: NS 1000 ML 1,000 ML IV SCH ×2 (00:59→19:19)
[2018-02-09] MEDS: APRESOLINE TAB 25 MG PO SCH ×3 (05:43→21:25)
[2018-02-09] MEDS: ARTIFICIAL TEARS DROPS EACHEYE SCH ×3 (05:43→21:29)
[2018-02-09] MEDS: ZOSYN VIAL 3.375 GM 3.375 GM in NS 100 ML IV + SPIKE MINIBAG* 100 ML IV SCH ×3 (05:44→21:29)
[2018-02-09 06:34] LABS: BASOPHILS # (AUTO) 0.1 X10^3/uL (0.0-0.1); BASOPHILS % (AUTO) 1.2 % (0.2-1.0); EOSINOPHILS # (AUTO) 0.3 x10^3/uL (0.0-0.2); EOSINOPHILS % (AUTO) 5.3 % (0.9-2.9); HEMATOCRIT 35.3 % (36.0-47.0); HEMOGLOBIN 12.7 g/dL (12.0-16.0); LYMPHOCYTES # (AUTO) 1.7 X10^3/uL (1.3-2.9); LYMPHOCYTES % (AUTO) 29.1 % (21.0-51.0); MEAN CORPUSCULAR HEMOGLOBIN 31.2 pg (27.0-34.0); MEAN CORPUSCULAR HGB CONC 35.9 g/dL (33.0-35.0); MEAN CORPUSCULAR VOLUME 86.8 fL (80.0-100.0); MEAN PLATELET VOLUME 7.4 fL (7.4-11.0); MONOCYTES # (AUTO) 0.8 x10^3/uL (0.3-0.8); MONOCYTES % (AUTO) 12.9 % (0.0-13.0); NEUTROPHILS # (AUTO) 3.1 x10^3/uL (2.2-4.8); NEUTROPHILS % (AUTO) 51.5 % (42.0-75.0); PLATELET COUNT 310 X10^3/uL (150.0-450.0); RED BLOOD COUNT 4.07 X10^6/uL (3.5-5.4); RED CELL DISTRIBUTION WIDTH 14.1 % (11.6-16.5)
[2018-02-09 06:57] LABS: ALANINE AMINOTRANSFERASE 21 Units/L (12-78); ALBUMIN 3.1 g/dL (3.4-5.0); ALKALINE PHOSPHATASE 51 Units/L (46-116); ASPARTATE AMINO TRANSFERASE 18 Units/L (15-37); BLOOD UREA NITROGEN 6 mg/dL (7-18); CALCIUM 8.2 mg/dL (8.5-10.1); CARBON DIOXIDE 25.2 mmol/L (21-32); CHLORIDE 100 mmol/L (98-107); COR CA(FOR HYPOALB) 8.9 mg/dL (8.5-10.1); COR NA(FOR HYPERGLY) 137 mmol/L (136-145); CREATININE 0.88 mg/dL (0.55-1.02); SODIUM 136 mmol/L (136-145); TOTAL PROTEIN 6.6 g/dL (6.4-8.2); eGFR BLACK RACES > 60 (>60); eGFR NON BLACK RACES > 60 (>60)
[2018-02-09] MEDS ORDERED: CATAPRES-TTS-3 TD SCH (08:00)
[2018-02-09] MEDS: EFFEXOR XR 37.5 MG CAP PO SCH (08:46)
[2018-02-09] MEDS: ZANTAC PO SCH ×2 (08:46→21:26)
[2018-02-09] MEDS: ZESTRIL TAB 10 MG PO SCH ×2 (08:46→21:26)
[2018-02-09] MEDS: ELIQUIS PO SCH ×2 (08:46→21:25)
[2018-02-09] MEDS: TAB-A-VITE PO SCH (08:47)
[2018-02-09] MEDS: JANUVIA PO SCH (08:47)
[2018-02-09] MEDS: CITRACAL + VITAMIN D PO SCH (08:47)
[2018-02-09] MEDS: CALAN (PLAIN) 120 MG PO SCH (08:47)
[2018-02-09] MEDS: VITAMIN C PO SCH ×2 (08:47→21:25)
[2018-02-09] MEDS: TRICOR TAB 48 MG PO SCH (08:48)
[2018-02-09] MEDS: QUESTRAN PO SCH (08:48)
[2018-02-09] MEDS: LEVEMIR SC SCH ×2 (08:49→21:26)
[2018-02-09] MEDS: COLACE CAP 100 MG PO SCH ×2 (08:49→21:30)
[2018-02-09] MEDS: MIRALAX POWDER (1 DOSE 17GM) PO SCH (08:49)
[2018-02-09] MEDS: MYLICON TAB 80 MG CHEW PO SCH ×2 (08:50→21:26)
[2018-02-09] MEDS ORDERED: CALAN SR 240 MG PO SCH (10:00)
[2018-02-09] MEDS: SYNTHROID 50 mcg TAB PO SCH (16:09)
[2018-02-09] MEDS: SNACK - Diabetic Appropriate PO SCH (21:24)
[2018-02-09] MEDS: LIPITOR TAB 20 MG PO SCH (21:25)
[2018-02-09] MEDS: TRAVATAN Z EACHEYE SCH (21:30)
--- NOTE | 2018-02-09 21:53 | PCM.PROG ---
Progress Note - Progress Note for Day of Date: 02/09/18 - Subjective Subjective: IS BEING TREATED FOR ATRIAL FIBRILLATION WITH RVR AND ACCELERATED HYPERTENSION. TODAY, SHE IS ALERT AND ORIENTED, LYING IN BED ON MORNING ROUNDS. SHE IS NOTED WITH COMPLAINTS OF SHORTNESS OF BREATH AT THIS TIME AND GENERALIZED WEAKNESS. HE HAS ALSO REMAINED HYPERTENSIVE THROUGHOUT THE NIGHT. 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 HER VITALS TODAY ARE 97.8-78-20-100%-197/101. SHE IS HEMODYNAMICALLY STABLE TODAY. TODAY, WE WILL CHANGE PO CLONIDINE TO A CATAPRES 0.3MG PATCH TD WEEKLY AND CHANGE VERAPAMIL TO 240MG PO DAILY. OTHERWISE, WE WILL CONTINUE WITH CURRENT PLAN OF CARE TODAY. WE WILL FOLLOW UP WITH AM LABS AND CONTINUE TO MONITOR PATIENT. - Past Medical Family Social History Past Med/Fam/Surg Hx: No changes since H&P Allergies: Allergies tuberculin,PPD,multi-puncture Allergy (Verified 12/16/17 20:21) - Review of Systems ROS: No change since H&P - Vital Signs and I&O's Vital Signs: Temperature 98.8 F Pulse Rate [Apical] 106 Pulse Rate [Right Radial] 102 Pulse Rate 167 Respiratory Rate 28 Blood Pressure [Right Arm] 182/81 Blood Pressure [Left Arm] 173/108 Blood Pressure 215/100 O2 Sat by Pulse Oximetry 97 Intake and Output: Intake & Output 02/07/18 02/08/18 02/09/18 02/10/18 11:59 11:59 11:59 11:59 Intake Total 4018 3166 3568 1590 Output Total 2600 2775 5523 3950 Balance 0235 335 -3972 -6909 - Physical Exam Oriented: Normal Eyes: Normal Ear: Normal Nose: Normal Throat: Normal Respiratory: Diminished Cardiovascular: Normal. negative: S3, S4, Murmur : Normal Auscultation: Bowel Sounds: Normal Palpation: Normal Tenderness: RUQ, Epigastric Skin: Normal Musculoskeletal: Normal Psychiatric: Normal Mood Description: Calm Affect: Normal Speech Pattern: Clear, Appropriate - Laboratory and Diagnostics Result Diagrams: 02/09/18 06:09 02/09/18 06:09 Labs: 02/08/18 18:55 Stool - Final 02/05/18 16:34 Blood Blood Culture - Preliminary 02/05/18 16:16 Blood Blood Culture - Preliminary Laboratory WBC 6.0 X10^3/uL (3.6-10.0) 02/09/18 06:09 RBC 4.07 X10^6/uL (3.5-5.4) 02/09/18 06:09 Hgb 12.7 g/dL (12.0-16.0) 02/09/18 06:09 Hct 35.3 % (36.0-47.0) L 02/09/18 06:09 MCV 86.8 fL (80.0-100.0) 02/09/18 06:09 MCH 31.2 pg (27.0-34.0) 02/09/18 06:09 MCHC 35.9 g/dL (33.0-35.0) H 02/09/18 06:09 RDW 14.1 % (11.6-16.5) 02/09/18 06:09 Plt Count 310 X10^3/uL (150.0-450.0) 02/09/18 06:09 Plt Count Comment Increased (ADEQUATE) A 02/05/18 09:35 MPV 7.4 fL (7.4-11.0) 02/09/18 06:09 Neut % (Auto) 51.5 % (42.0-75.0) 02/09/18 06:09 Lymph % (Auto) 29.1 % (21.0-51.0) 02/09/18 06:09 [place] % (Auto) 12.9 % (0.0-13.0) 02/09/18 06:09 Eos % (Auto) 5.3 % (0.9-2.9) H 02/09/18 06:09 Baso % (Auto) 1.2 % (0.2-1.0) H 02/09/18 06:09 Neut # (Auto) 3.1 x10^3/uL (2.2-4.8) 02/09/18 06:09 Lymph # (Auto) 1.7 X10^3/uL (1.3-2.9) 02/09/18 06:09 [place] # (Auto) 0.8 x10^3/uL (0.3-0.8) 02/09/18 06:09 Eos # (Auto) 0.3 x10^3/uL (0.0-0.2) H 02/09/18 06:09 Baso # (Auto) 0.1 X10^3/uL (0.0-0.1) 02/09/18 06:09 Absolute Nucleated RBC 0.0 /100WBC 02/09/18 06:09 Plt Morphology Comment Normal (NORMAL) 02/05/18 09:35 RBC Morphology Normal (NORMAL) 02/05/18 09:35 INR Target Range - 02/05/18 09:35 INR 1.03 (0.8-1.3) 02/05/18 09:35 APTT 30.0 SECONDS (22.9-36.5) 02/05/18 09:35 PTT Comment - 02/05/18 09:35 Sodium 136 mmol/L (136-145) 02/09/18 06:09 Corrected Sodium 137 mmol/L (136-145) 02/09/18 06:09 Potassium 3.3 mmol/L (3.5-5.1) L 02/09/18 06:09 Chloride 100 mmol/L (98-107) 02/09/18 06:09 Carbon Dioxide 25.2 mmol/L (21-32) 02/09/18 06:09 BUN 6 mg/dL (7-18) L 02/09/18 06:09 Creatinine 0.88 mg/dL (0.55-1.02) 02/09/18 06:09 Est GFR (MDRD) Af Amer > 60 (>60) 02/09/18 06:09 Est GFR (MDRD) Non-Af > 60 (>60) 02/09/18 06:09 Glucose 128 mg/dL (65-99) H 02/09/18 06:09 POC Glucose (mg/dL) 159 mg/dL (65-99) H 02/09/18 19:34 Lactic Acid 1.0 mmol/L (0.4-2.0) 02/06/18 16:00 Calcium 8.2 mg/dL (8.5-10.1) L 02/09/18 06:09 Corrected Calcium 8.9 mg/dL (8.5-10.1) 02/09/18 06:09 Magnesium 2.0 mg/dL (1.7-2.9) 02/06/18 07:10 Total Bilirubin 0.30 mg/dL (0.2-1.0) 02/09/18 06:09 AST 18 Units/L (15-37) 02/09/18 06:09 ALT 21 Units/L (12-78) 02/09/18 06:09 Alkaline Phosphatase 51 Units/L (46-116) 02/09/18 06:09 Creatine Kinase 28 Units/L (26-192) 02/07/18 02:54 CK-MB (CK-2) < 1.0 ng/mL (0-4.0) 02/07/18 02:54 CK/CKMB % Calc 3.6 % (<4) 02/07/18 02:54 Troponin I 0.03 ng/mL (0-1.5) 02/07/18 02:54 Total Protein 6.6 g/dL (6.4-8.2) 02/09/18 06:09 Albumin 3.1 g/dL (3.4-5.0) L 02/09/18 06:09 Globulin 3.5 g/dL (2.5-4.5) 02/09/18 06:09 Albumin/Globulin Ratio 0.9 Ratio (1.1-2.1) L 02/09/18 06:09 Amylase 23 Units/L (25-115) L 02/05/18 09:35 Lipase 97 Units/L (73-393) 02/05/18 09:35 Specimen Type Catherized urine 02/06/18 16:25 Urine Color Yellow (YELLOW) 02/06/18 16:25 Urine Appearance Clear (CLEAR) 02/06/18 16:25 Urine pH 7.0 (5.0 - 8.0) 02/06/18 16:25 Ur Specific [place] 1.005 (1.000-1.030) 02/06/18 16:25 Urine Protein 3+ (NEGATIVE) 02/06/18 16:25 Urine Glucose (UA) 4+ (NEGATIVE) 02/06/18 16:25 Urine Ketones 1+ (NEGATIVE) 02/06/18 16:25 Urine Occult Blood Negative (NEGATIVE) 02/06/18 16:25 Urine Nitrite Negative (NEGATIVE) 02/06/18 16:25 Urine Bilirubin Negative (NEGATIVE) 02/06/18 16:25 Urine Urobilinogen Normal (NORMAL) 02/06/18 16:25 Ur Leukocyte Esterase Negative (NEGATIVE) 02/06/18 16:25 Urine RBC None seen /HPF (NONE SEEN) 02/06/18 16:25 Urine WBC 0-2 /HPF (NONE SEEN) 02/06/18 16:25 Ur Squamous Epith Cells Rare /HPF (NEGATIVE) 02/06/18 16:25 Amorphous Sediment Trace /HPF (NEGATIVE) 02/06/18 16:25 Urine Bacteria Negative /HPF (NEGATIVE) 02/06/18 16:25 Urine Mucus Rare /HPF (NEGATIVE) 02/05/18 12:46 Ur Culture Indicated? No/not indicated 02/06/18 16:25 Stool Description 8g,soft,brown,unform 02/08/18 18:55 Stl Occult Blood (IFOB) Negative (NEGATIVE) 02/08/18 18:55 Stool for White Cells Negative (NEGATIVE) 02/08/18 18:55 Stl C. diff Tox B Gene Cancelled 02/08/18 18:55 Stl C. diff [id number] Cancelled 02/08/18 18:55 Digoxin 0.35 ng/mL (0.9-2) L 02/07/18 02:54 Cryptosporid parvum Ag Negative (NEGATIVE) 02/08/18 18:55 E. histolytica Antigen Negative (NEGATIVE) 02/08/18 18:55 Giardia lamblia Ag Negative (NEGATIVE) 02/08/18 18:55 - Plan (1) Atrial fibrillation with rapid ventricular response Status: Acute Plan: verapamil ER 240MG PO DAILY, ELIQUIS 2.5MG PO BID, hall monitor, supplemental oxygen, continue to monitor (2) Abdominal pain Status: Acute Qualifiers: Abdominal location: right upper quadrant Qualified Code(s): R10.11 - Right upper quadrant pain Plan: norco, continue to monitor (3) Nausea & vomiting Status: Acute Qualifiers: Vomiting type: hematemesis Qualified Code(s): K92.0 - Hematemesis Plan: phenergan po, zofran 4mg iv q8h prn, continue to monitor (4) Diabetes mellitus type 1, uncontrolled Status: Acute Qualifiers: Diabetes mellitus complication status: with unspecified complications Qualified Code(s): E10.8 - Type 1 diabetes mellitus with unspecified complications; E10.65 - Type 1 diabetes mellitus with hyperglycemia; E10.65 - Type 1 diabetes mellitus with hyperglycemia; E10.65 - Type 1 diabetes mellitus with hyperglycemia; E10.65 - Type 1 diabetes mellitus with hyperglycemia Plan: LEVEMIR 20 UNITS SC BID, HUMULIN R SLIDING SCALE, MONITOR OTBS (5) Accelerated hypertension Status: Acute Plan: CATAPRES PATCH 0.3MG TD WEEKLY, CONTINUE LISINOPRIL, CONTINUE HYDRALAZINE , CONTINUE TO MONITOR
[2018-02-10] MEDS: NORCO 5/325 MG TAB PO PRN ×2 (00:30→21:01)
[2018-02-10] MEDS: NS 1000 ML 1,000 ML IV SCH ×3 (03:38→17:27)
[2018-02-10] MEDS: ARTIFICIAL TEARS DROPS EACHEYE SCH ×3 (06:12→21:02)
[2018-02-10] MEDS: ZOSYN VIAL 3.375 GM 3.375 GM in NS 100 ML IV + SPIKE MINIBAG* 100 ML IV SCH ×3 (06:12→22:10)
[2018-02-10] MEDS: APRESOLINE TAB 25 MG PO SCH ×5 (06:12→22:10)
[2018-02-10 06:23] LABS: BASOPHILS # (AUTO) 0.1 X10^3/uL (0.0-0.1); BASOPHILS % (AUTO) 1.3 % (0.2-1.0); EOSINOPHILS # (AUTO) 0.2 x10^3/uL (0.0-0.2); EOSINOPHILS % (AUTO) 3.2 % (0.9-2.9); HEMATOCRIT 38.6 % (36.0-47.0); HEMOGLOBIN 13.6 g/dL (12.0-16.0); LYMPHOCYTES # (AUTO) 1.9 X10^3/uL (1.3-2.9); LYMPHOCYTES % (AUTO) 25.7 % (21.0-51.0); MEAN CORPUSCULAR HEMOGLOBIN 30.8 pg (27.0-34.0); MEAN CORPUSCULAR HGB CONC 35.2 g/dL (33.0-35.0); MEAN CORPUSCULAR VOLUME 87.4 fL (80.0-100.0); MEAN PLATELET VOLUME 7.8 fL (7.4-11.0); MONOCYTES # (AUTO) 1.1 x10^3/uL (0.3-0.8); MONOCYTES % (AUTO) 14.2 % (0.0-13.0); NEUTROPHILS # (AUTO) 4.2 x10^3/uL (2.2-4.8); NEUTROPHILS % (AUTO) 55.6 % (42.0-75.0); PLATELET COUNT 386 X10^3/uL (150.0-450.0); RED BLOOD COUNT 4.41 X10^6/uL (3.5-5.4); RED CELL DISTRIBUTION WIDTH 14.3 % (11.6-16.5); WHITE BLOOD COUNT 7.6 X10^3/uL (3.6-10.0)
[2018-02-10 06:29] LABS: ALANINE AMINOTRANSFERASE 22 Units/L (12-78); ALBUMIN 3.2 g/dL (3.4-5.0); ALKALINE PHOSPHATASE 58 Units/L (46-116); ASPARTATE AMINO TRANSFERASE 21 Units/L (15-37); BLOOD UREA NITROGEN 3 mg/dL (7-18); CALCIUM 9.1 mg/dL (8.5-10.1); CARBON DIOXIDE 23.4 mmol/L (21-32); CHLORIDE 99 mmol/L (98-107); COR CA(FOR HYPOALB) 9.7 mg/dL (8.5-10.1); COR NA(FOR HYPERGLY) 136 mmol/L (136-145); CREATININE 0.84 mg/dL (0.55-1.02); SODIUM 134 mmol/L (136-145); eGFR BLACK RACES > 60 (>60); eGFR NON BLACK RACES > 60 (>60)
[2018-02-10] MEDS: PHENERGAN TAB 25 MG PO PRN ×2 (09:26→20:57)
[2018-02-10] MEDS: LEVEMIR SC SCH ×2 (09:28→21:10)
[2018-02-10] MEDS: COLACE CAP 100 MG PO SCH ×2 (10:08→21:01)
[2018-02-10] MEDS: EFFEXOR XR 37.5 MG CAP PO SCH (10:08)
[2018-02-10] MEDS: JANUVIA PO SCH (10:08)
[2018-02-10] MEDS: QUESTRAN PO SCH (10:08)
[2018-02-10] MEDS: MYLICON TAB 80 MG CHEW PO SCH ×2 (10:09→21:20)
[2018-02-10] MEDS: VITAMIN C PO SCH ×2 (10:09→21:01)
[2018-02-10] MEDS: ELIQUIS PO SCH ×2 (10:09→21:01)
[2018-02-10] MEDS: ZANTAC PO SCH ×2 (10:09→21:01)
[2018-02-10] MEDS: TRICOR TAB 48 MG PO SCH (10:09)
[2018-02-10] MEDS: ZESTRIL TAB 10 MG PO SCH (10:09)
[2018-02-10] MEDS: MIRALAX POWDER (1 DOSE 17GM) PO SCH (10:10)
[2018-02-10] MEDS: CITRACAL + VITAMIN D PO SCH (10:10)
[2018-02-10] MEDS: TAB-A-VITE PO SCH (10:10)
[2018-02-10] MEDS: ZOFRAN INJ 4 MG VIAL IVP PRN ×2 (10:15→14:10)
[2018-02-10] MEDS: CALAN SR 180 MG PO SCH (12:07)
[2018-02-10] MEDS: LANOXIN PO SCH (12:08)
[2018-02-10] MEDS: HumuLIN R SC PRN ×3 (12:09→21:09)
[2018-02-10] MEDS: NORMODYNE INJ 20 MG VIAL IV PRN ×9 (14:52→23:50)
[2018-02-10] MEDS: PROTONIX INJ 40 MG VIAL IVP SCH ×2 (15:16→21:02)
[2018-02-10] MEDS: PEPCID 20 MG IV PREMIX* 20 MG/50 ML BAG IV SCH ×2 (15:16→21:20)
[2018-02-10 15:25] LABS: CKMB % 4.3 % (<4); CREATINE KINASE 35 Units/L (26-192); CREATINE KINASE MB 1.5 ng/mL (0-4.0); TROPONIN I < 0.02 ng/mL (0-1.5)
[2018-02-10] MEDS: SYNTHROID 50 mcg TAB PO SCH (17:26)
[2018-02-10] MEDS ORDERED: VASOTEC INJ 1.25 MG VIAL IVP PRN (18:14)
[2018-02-10] MEDS: VASOTEC INJ 1.25 MG VIAL IVP SCH ×2 (18:53→21:21)
[2018-02-10 19:04] LABS: CKMB % 4.8 % (<4); CREATINE KINASE 31 Units/L (26-192); CREATINE KINASE MB 1.5 ng/mL (0-4.0); TROPONIN I < 0.02 ng/mL (0-1.5)
[2018-02-10] MEDS: LIPITOR TAB 20 MG PO SCH (21:00)
[2018-02-10] MEDS: TRAVATAN Z EACHEYE SCH (21:02)
[2018-02-10] MEDS: SNACK - Diabetic Appropriate PO SCH (21:20)
[2018-02-10 23:25] LABS: CKMB % 4.9 % (<4); CREATINE KINASE 33 Units/L (26-192); CREATINE KINASE MB 1.6 ng/mL (0-4.0); TROPONIN I < 0.02 ng/mL (0-1.5)
[2018-02-11] MEDS: NORMODYNE INJ 20 MG VIAL IV PRN ×3 (00:05→03:25)
[2018-02-11] MEDS: VASOTEC INJ 1.25 MG VIAL IVP SCH (02:33)
[2018-02-11] MEDS: NS 1000 ML 1,000 ML IV SCH ×2 (03:00→07:52)
[2018-02-11] MEDS: ZOSYN VIAL 3.375 GM 3.375 GM in NS 100 ML IV + SPIKE MINIBAG* 100 ML IV SCH ×3 (05:04→22:10)
[2018-02-11] MEDS: APRESOLINE TAB 25 MG PO SCH ×4 (05:04→21:00)
[2018-02-11] MEDS: ARTIFICIAL TEARS DROPS EACHEYE SCH ×3 (05:51→22:09)
[2018-02-11 06:28] LABS: BASOPHILS # (AUTO) 0.1 X10^3/uL (0.0-0.1); BASOPHILS % (AUTO) 0.7 % (0.2-1.0); EOSINOPHILS # (AUTO) 0.1 x10^3/uL (0.0-0.2); EOSINOPHILS % (AUTO) 0.7 % (0.9-2.9); HEMOGLOBIN 14.3 g/dL (12.0-16.0); LYMPHOCYTES # (AUTO) 1.3 X10^3/uL (1.3-2.9); LYMPHOCYTES % (AUTO) 13.9 % (21.0-51.0); MEAN CORPUSCULAR HEMOGLOBIN 30.5 pg (27.0-34.0); MEAN CORPUSCULAR HGB CONC 34.8 g/dL (33.0-35.0); MEAN CORPUSCULAR VOLUME 87.5 fL (80.0-100.0); MEAN PLATELET VOLUME 7.7 fL (7.4-11.0); MONOCYTES # (AUTO) 0.8 x10^3/uL (0.3-0.8); MONOCYTES % (AUTO) 9.3 % (0.0-13.0); NEUTROPHILS # (AUTO) 6.9 x10^3/uL (2.2-4.8); NEUTROPHILS % (AUTO) 75.4 % (42.0-75.0); PLATELET COUNT 408 X10^3/uL (150.0-450.0); RED BLOOD COUNT 4.69 X10^6/uL (3.5-5.4); RED CELL DISTRIBUTION WIDTH 14.6 % (11.6-16.5); WHITE BLOOD COUNT 9.2 X10^3/uL (3.6-10.0)
[2018-02-11 07:01] LABS: ALANINE AMINOTRANSFERASE 18 Units/L (12-78); ALBUMIN 3.4 g/dL (3.4-5.0); ALKALINE PHOSPHATASE 61 Units/L (46-116); ASPARTATE AMINO TRANSFERASE 18 Units/L (15-37); BLOOD UREA NITROGEN 8 mg/dL (7-18); CALCIUM 8.6 mg/dL (8.5-10.1); CARBON DIOXIDE 23.3 mmol/L (21-32); CHLORIDE 99 mmol/L (98-107); COR NA(FOR HYPERGLY) 136 mmol/L (136-145); CREATININE 0.69 mg/dL (0.55-1.02); DIGOXIN < 0.20 ng/mL (0.9-2); SODIUM 134 mmol/L (136-145); TOTAL PROTEIN 7.1 g/dL (6.4-8.2); eGFR BLACK RACES > 60 (>60); eGFR NON BLACK RACES > 60 (>60)
[2018-02-11] MEDS: PHENERGAN TAB 25 MG PO PRN ×2 (07:52→21:00)
[2018-02-11] MEDS: PEPCID 20 MG IV PREMIX* 20 MG/50 ML BAG IV SCH ×2 (08:47→21:05)
[2018-02-11] MEDS: PROTONIX INJ 40 MG VIAL IVP SCH ×2 (08:47→21:01)
[2018-02-11] MEDS: LEVEMIR SC SCH ×2 (08:47→21:02)
[2018-02-11] MEDS: ZANTAC PO SCH ×2 (08:48→21:01)
[2018-02-11] MEDS: EFFEXOR XR 37.5 MG CAP PO SCH (08:48)
[2018-02-11] MEDS: ELIQUIS PO SCH ×2 (08:49→20:57)
[2018-02-11] MEDS: TRICOR TAB 48 MG PO SCH (08:49)
[2018-02-11] MEDS: JANUVIA PO SCH (08:49)
[2018-02-11] MEDS: CALAN SR 180 MG PO SCH (08:49)
[2018-02-11] MEDS: MYLICON TAB 80 MG CHEW PO SCH ×2 (08:49→20:59)
[2018-02-11] MEDS: CITRACAL + VITAMIN D PO SCH (08:49)
[2018-02-11] MEDS: VITAMIN C PO SCH ×2 (08:49→21:01)
[2018-02-11] MEDS: QUESTRAN PO SCH (08:50)
[2018-02-11] MEDS: MIRALAX POWDER (1 DOSE 17GM) PO SCH (08:50)
[2018-02-11] MEDS: LANOXIN PO SCH (08:50)
[2018-02-11] MEDS: TAB-A-VITE PO SCH (08:50)
[2018-02-11] MEDS: COLACE CAP 100 MG PO SCH ×2 (08:50→21:01)
[2018-02-11] MEDS: ZESTRIL TAB 10 MG PO SCH ×2 (11:47→21:00)
[2018-02-11] MEDS: POTASSIUM CHL 40 MEQ/NS 0.45% 500 ML IV PRN (11:48)
[2018-02-11] MEDS: NORCO 5/325 MG TAB PO PRN (12:24)
[2018-02-11] MEDS: NITRODUR PATCH 0.4 MG/HR TD SCH (14:06)
[2018-02-11] MEDS: SYNTHROID 50 mcg TAB PO SCH (17:34)
--- NOTE | 2018-02-11 19:04 | PCM.PROG ---
Progress Note - Progress Note for Day of Date: 02/10/18 - Subjective Subjective: IS BEING TREATED FOR ATRIAL FIBRILLATION WITH RVR AND ACCELERATED HYPERTENSION. TODAY, SHE IS ALERT AND ORIENTED, LYING IN BED ON MORNING ROUNDS. SHE CONTINUES WITH COMPLAINTS OF SHORTNESS OF BREATH AT THIS TIME AND GENERALIZED WEAKNESS. SHE HAS REMAINED HYPERTENSIVE AND TACHYCARDIC DESPITE CHANGES TO MEDICATIONS. 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 HER VITALS TODAY ARE 97.8-112-27-98%-191/88. SODIUM 134, GLUCOSE 198, OTHERWISE, SHE REMAINS HEMODYNAMICALLY STABLE TODAY. TODAY, WE WILL CHANGE VERAPAMIL TO 180MG PO BID AND ADD DIGOXIN 0.125MG PO DAILY. OTHERWISE, WE WILL CONTINUE WITH CURRENT PLAN OF CARE TODAY. WE WILL FOLLOW UP WITH AM LABS AND CONTINUE TO MONITOR PATIENT. - Past Medical Family Social History Past Med/Fam/Surg Hx: No changes since H&P Allergies: Allergies tuberculin,PPD,multi-puncture Allergy (Verified 12/16/17 20:21) - Review of Systems ROS: No change since H&P - Vital Signs and I&O's Vital Signs: Temperature 97.4 F Pulse Rate [Apical] 106 Pulse Rate [Right Radial] 79 Pulse Rate 105 Respiratory Rate 20 Blood Pressure [Right Arm] 94/51 Blood Pressure [Left Arm] 173/108 Blood Pressure 215/100 O2 Sat by Pulse Oximetry 98 Intake and Output: Intake & Output 02/09/18 02/10/18 02/11/18 02/12/18 11:59 11:59 11:59 11:59 Intake Total 3568 4275 1820 840 Output Total 5543 6700 2850 600 Balance -1957 -2425 -1030 240 - Physical Exam Oriented: Normal Eyes: Normal Ear: Normal Nose: Normal Throat: Normal Respiratory: Diminished Cardiovascular: Tachycardia. negative: S3, S4, Murmur : Normal Auscultation: Bowel Sounds: Normal Palpation: Normal Tenderness: Normal Skin: Normal Musculoskeletal: Normal Psychiatric: Normal Mood Description: Calm Affect: Normal Speech Pattern: Clear, Appropriate - Laboratory and Diagnostics Result Diagrams: 02/11/18 05:29 02/11/18 05:29 Labs: 02/08/18 18:55 Stool Stool Culture - Preliminary 02/08/18 18:55 Stool - Final 02/05/18 16:34 Blood Blood Culture - Final 02/05/18 16:16 Blood Blood Culture - Final Laboratory WBC 9.2 X10^3/uL (3.6-10.0) 02/11/18 05:29 RBC 4.69 X10^6/uL (3.5-5.4) 02/11/18 05:29 Hgb 14.3 g/dL (12.0-16.0) 02/11/18 05:29 Hct 41.0 % (36.0-47.0) 02/11/18 05:29 MCV 87.5 fL (80.0-100.0) 02/11/18 05:29 MCH 30.5 pg (27.0-34.0) 02/11/18 05:29 MCHC 34.8 g/dL (33.0-35.0) 02/11/18 05:29 RDW 14.6 % (11.6-16.5) 02/11/18 05:29 Plt Count 408 X10^3/uL (150.0-450.0) 02/11/18 05:29 Plt Count Comment Increased (ADEQUATE) A 02/05/18 09:35 MPV 7.7 fL (7.4-11.0) 02/11/18 05:29 Neut % (Auto) 75.4 % (42.0-75.0) H 02/11/18 05:29 Lymph % (Auto) 13.9 % (21.0-51.0) L 02/11/18 05:29 [place] % (Auto) 9.3 % (0.0-13.0) 02/11/18 05:29 Eos % (Auto) 0.7 % (0.9-2.9) L 02/11/18 05:29 Baso % (Auto) 0.7 % (0.2-1.0) 02/11/18 05:29 Neut # (Auto) 6.9 x10^3/uL (2.2-4.8) H 02/11/18 05:29 Lymph # (Auto) 1.3 X10^3/uL (1.3-2.9) 02/11/18 05:29 [place] # (Auto) 0.8 x10^3/uL (0.3-0.8) 02/11/18 05:29 Eos # (Auto) 0.1 x10^3/uL (0.0-0.2) 02/11/18 05:29 Baso # (Auto) 0.1 X10^3/uL (0.0-0.1) 02/11/18 05:29 Absolute Nucleated RBC 0.0 /100WBC 02/11/18 05:29 Plt Morphology Comment Normal (NORMAL) 02/05/18 09:35 RBC Morphology Normal (NORMAL) 02/05/18 09:35 INR Target Range - 02/05/18 09:35 INR 1.03 (0.8-1.3) 02/05/18 09:35 APTT 30.0 SECONDS (22.9-36.5) 02/05/18 09:35 PTT Comment - 02/05/18 09:35 Sodium 134 mmol/L (136-145) L 02/11/18 05:29 Corrected Sodium 136 mmol/L (136-145) 02/11/18 05:29 Potassium 3.2 mmol/L (3.5-5.1) L 02/11/18 05:29 Chloride 99 mmol/L (98-107) 02/11/18 05:29 Carbon Dioxide 23.3 mmol/L (21-32) 02/11/18 05:29 BUN 8 mg/dL (7-18) 02/11/18 05:29 Creatinine 0.69 mg/dL (0.55-1.02) 02/11/18 05:29 Est GFR (MDRD) Af Amer > 60 (>60) 02/11/18 05:29 Est GFR (MDRD) Non-Af > 60 (>60) 02/11/18 05:29 Glucose 194 mg/dL (65-99) H 02/11/18 05:29 POC Glucose (mg/dL) 148 mg/dL (65-99) H 02/11/18 16:40 Lactic Acid 1.0 mmol/L (0.4-2.0) 02/06/18 16:00 Calcium 8.6 mg/dL (8.5-10.1) 02/11/18 05:29 Corrected Calcium TNP 02/11/18 05:29 Magnesium 1.8 mg/dL (1.7-2.9) 02/11/18 05:29 Total Bilirubin 0.40 mg/dL (0.2-1.0) 02/11/18 05:29 AST 18 Units/L (15-37) 02/11/18 05:29 ALT 18 Units/L (12-78) 02/11/18 05:29 Alkaline Phosphatase 61 Units/L (46-116) 02/11/18 05:29 Creatine Kinase 33 Units/L (26-192) 02/10/18 22:45 CK-MB (CK-2) 1.6 ng/mL (0-4.0) 02/10/18 22:45 CK/CKMB % Calc 4.9 % (<4) 02/10/18 22:45 Troponin I < 0.02 ng/mL (0-1.5) 02/10/18 22:45 Total Protein 7.1 g/dL (6.4-8.2) 02/11/18 05:29 Albumin 3.4 g/dL (3.4-5.0) 02/11/18 05:29 Globulin 3.7 g/dL (2.5-4.5) 02/11/18 05:29 Albumin/Globulin Ratio 0.9 Ratio (1.1-2.1) L 02/11/18 05:29 Amylase 23 Units/L (25-115) L 02/05/18 09:35 Lipase 97 Units/L (73-393) 02/05/18 09:35 Specimen Type Catherized urine 02/06/18 16:25 Urine Color Yellow (YELLOW) 02/06/18 16:25 Urine Appearance Clear (CLEAR) 02/06/18 16:25 Urine pH 7.0 (5.0 - 8.0) 02/06/18 16:25 Ur Specific [place] 1.005 (1.000-1.030) 02/06/18 16:25 Urine Protein 3+ (NEGATIVE) 02/06/18 16:25 Urine Glucose (UA) 4+ (NEGATIVE) 02/06/18 16:25 Urine Ketones 1+ (NEGATIVE) 02/06/18 16:25 Urine Occult Blood Negative (NEGATIVE) 02/06/18 16:25 Urine Nitrite Negative (NEGATIVE) 02/06/18 16:25 Urine Bilirubin Negative (NEGATIVE) 02/06/18 16:25 Urine Urobilinogen Normal (NORMAL) 02/06/18 16:25 Ur Leukocyte Esterase Negative (NEGATIVE) 02/06/18 16:25 Urine RBC None seen /HPF (NONE SEEN) 02/06/18 16:25 Urine WBC 0-2 /HPF (NONE SEEN) 02/06/18 16:25 Ur Squamous Epith Cells Rare /HPF (NEGATIVE) 02/06/18 16:25 Amorphous Sediment Trace /HPF (NEGATIVE) 02/06/18 16:25 Urine Bacteria Negative /HPF (NEGATIVE) 02/06/18 16:25 Urine Mucus Rare /HPF (NEGATIVE) 02/05/18 12:46 Ur Culture Indicated? No/not indicated 02/06/18 16:25 Stool Description 8g,soft,brown,unform 02/08/18 18:55 Stl Occult Blood (IFOB) Negative (NEGATIVE) 02/08/18 18:55 Stool for White Cells Negative (NEGATIVE) 02/08/18 18:55 Stl C. diff Tox B Gene Cancelled 02/08/18 18:55 Stl C. diff [id number] Cancelled 02/08/18 18:55 Digoxin < 0.20 ng/mL (0.9-2) L 02/11/18 05:29 Cryptosporid parvum Ag Negative (NEGATIVE) 02/08/18 18:55 E. 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, supplemental oxygen, continue to monitor (2) Abdominal pain Status: Acute Qualifiers: Abdominal location: right upper quadrant Qualified Code(s): R10.11 - Right upper quadrant pain Plan: norco, continue to monitor (3) Nausea & vomiting Status: Acute Qualifiers: Vomiting type: hematemesis Qualified Code(s): K92.0 - Hematemesis Plan: phenergan po, zofran 4mg iv q8h prn, continue to monitor (4) Diabetes mellitus type 1, uncontrolled Status: Acute Qualifiers: Diabetes mellitus complication status: with unspecified complications Qualified Code(s): E10.8 - Type 1 diabetes mellitus with unspecified complications; E10.65 - Type 1 diabetes mellitus with hyperglycemia; E10.65 - Type 1 diabetes mellitus with hyperglycemia; E10.65 - Type 1 diabetes mellitus with hyperglycemia; E10.65 - Type 1 diabetes mellitus with hyperglycemia Plan: LEVEMIR 20 UNITS SC BID, HUMULIN R SLIDING SCALE, MONITOR OTBS (5) Accelerated hypertension Status: Acute Plan: CATAPRES PATCH 0.3MG TD WEEKLY, CONTINUE LISINOPRIL, CONTINUE HYDRALAZINE , CONTINUE TO MONITOR
[2018-02-11] MEDS ORDERED: NS 100 ML IV + SPIKE MINIBAG* 100 ML IV ONE (20:48)
[2018-02-11] MEDS: LIPITOR TAB 20 MG PO SCH (20:59)
[2018-02-11] MEDS: CHECK PATCH XX SCH (21:11)
[2018-02-11] MEDS: TRAVATAN Z EACHEYE SCH (21:12)
[2018-02-11] MEDS: SNACK - Diabetic Appropriate PO SCH (21:12)
[2018-02-12] MEDS ORDERED: NS 100 ML IV + SPIKE MINIBAG* 100 ML IV ONE (04:35)
[2018-02-12] MEDS: NITRODUR PATCH 0.4 MG/HR TD SCH ×2 (05:18→09:18)
[2018-02-12] MEDS: APRESOLINE TAB 25 MG PO SCH ×5 (05:20→20:43)
[2018-02-12] MEDS: ARTIFICIAL TEARS DROPS EACHEYE SCH ×3 (06:19→21:19)
[2018-02-12] MEDS: ZOSYN VIAL 3.375 GM 3.375 GM in NS 100 ML IV + SPIKE MINIBAG* 100 ML IV SCH ×3 (06:19→21:20)
[2018-02-12] MEDS: ZOFRAN INJ 4 MG VIAL IVP PRN ×2 (06:42→10:40)
[2018-02-12 06:51] LABS: ALANINE AMINOTRANSFERASE 20 Units/L (12-78); ALBUMIN 3.4 g/dL (3.4-5.0); ALKALINE PHOSPHATASE 59 Units/L (46-116); ASPARTATE AMINO TRANSFERASE 14 Units/L (15-37); BLOOD UREA NITROGEN 11 mg/dL (7-18); CALCIUM 8.7 mg/dL (8.5-10.1); CARBON DIOXIDE 26.1 mmol/L (21-32); CHLORIDE 99 mmol/L (98-107); COR NA(FOR HYPERGLY) 135 mmol/L (136-145); CREATININE 0.79 mg/dL (0.55-1.02); SODIUM 134 mmol/L (136-145); TOTAL PROTEIN 7.2 g/dL (6.4-8.2); eGFR BLACK RACES > 60 (>60); eGFR NON BLACK RACES > 60 (>60)
[2018-02-12 07:08] LABS: BASOPHILS # (AUTO) 0.2 X10^3/uL (0.0-0.1); BASOPHILS % (AUTO) 1.6 % (0.2-1.0); EOSINOPHILS # (AUTO) 0.2 x10^3/uL (0.0-0.2); EOSINOPHILS % (AUTO) 2.2 % (0.9-2.9); HEMOGLOBIN 14.6 g/dL (12.0-16.0); LYMPHOCYTES # (AUTO) 2.2 X10^3/uL (1.3-2.9); LYMPHOCYTES % (AUTO) 21.2 % (21.0-51.0); MEAN CORPUSCULAR HGB CONC 35.8 g/dL (33.0-35.0); MEAN CORPUSCULAR VOLUME 86.8 fL (80.0-100.0); MEAN PLATELET VOLUME 7.6 fL (7.4-11.0); MONOCYTES # (AUTO) 1.3 x10^3/uL (0.3-0.8); MONOCYTES % (AUTO) 12.3 % (0.0-13.0); NEUTROPHILS # (AUTO) 6.5 x10^3/uL (2.2-4.8); NEUTROPHILS % (AUTO) 62.7 % (42.0-75.0); PLATELET COUNT 450 X10^3/uL (150.0-450.0); RED BLOOD COUNT 4.72 X10^6/uL (3.5-5.4); RED CELL DISTRIBUTION WIDTH 14.6 % (11.6-16.5); WHITE BLOOD COUNT 10.3 X10^3/uL (3.6-10.0)
[2018-02-12] MEDS: PHENERGAN TAB 25 MG PO PRN (09:00)
[2018-02-12] MEDS: JANUVIA PO SCH (09:11)
[2018-02-12] MEDS: VITAMIN C PO SCH ×2 (09:11→20:46)
[2018-02-12] MEDS: EFFEXOR XR 37.5 MG CAP PO SCH (09:11)
[2018-02-12] MEDS: PROTONIX INJ 40 MG VIAL IVP SCH ×2 (09:11→20:46)
[2018-02-12] MEDS: TAB-A-VITE PO SCH (09:11)
[2018-02-12] MEDS: ZANTAC PO SCH ×2 (09:11→20:46)
[2018-02-12] MEDS: LANOXIN PO SCH (09:12)
[2018-02-12] MEDS: COLACE CAP 100 MG PO SCH ×2 (09:12→20:44)
[2018-02-12] MEDS: ZESTRIL TAB 10 MG PO SCH ×2 (09:13→20:46)
[2018-02-12] MEDS: LEVEMIR SC SCH ×2 (09:14→20:44)
[2018-02-12] MEDS: PEPCID 20 MG IV PREMIX* 20 MG/50 ML BAG IV SCH ×2 (09:17→20:45)
[2018-02-12] MEDS: TRICOR TAB 48 MG PO SCH (09:22)
[2018-02-12] MEDS: CITRACAL + VITAMIN D PO SCH (09:22)
[2018-02-12] MEDS: ELIQUIS PO SCH ×2 (09:22→20:45)
[2018-02-12] MEDS: CALAN SR 180 MG PO SCH (09:22)
[2018-02-12] MEDS: QUESTRAN PO SCH (09:22)
[2018-02-12] MEDS: MYLICON TAB 80 MG CHEW PO SCH ×2 (09:22→20:45)
[2018-02-12] MEDS: CHECK PATCH XX SCH ×2 (09:23→21:19)
[2018-02-12] MEDS: MIRALAX POWDER (1 DOSE 17GM) PO SCH (09:31)
[2018-02-12] MEDS ORDERED: LOPRESSOR TAB 25 MG PO SCH (11:00)
[2018-02-12] MEDS: POTASSIUM CHL 40 MEQ/NS 0.45% 500 ML IV PRN (11:21)
[2018-02-12] MEDS: NORMODYNE INJ 20 MG VIAL IV PRN (12:03)
--- NOTE | 2018-02-12 12:25 | RAD ---
Examination: AP chest History: CHF, AFib Comparison 02/05/2018 Findings: Continued normal heart size. The lungs are essentially clear. Prominent markings behind the heart in the left lower lobe without definite consolidation. No pneumothorax or large pleural effusi on. Impression: No definite abnormality or significant findings compared to prior examination. Reported By:
[2018-02-12] MEDS: SYNTHROID 50 mcg TAB PO SCH (16:26)
[2018-02-12] MEDS: SNACK - Diabetic Appropriate PO SCH (20:17)
[2018-02-12] MEDS: LIPITOR TAB 20 MG PO SCH (20:45)
[2018-02-12] MEDS: TRAVATAN Z EACHEYE SCH (20:46)
[2018-02-13] MEDS: ARTIFICIAL TEARS DROPS EACHEYE SCH ×3 (05:19→21:04)
[2018-02-13] MEDS: ZOSYN VIAL 3.375 GM 3.375 GM in NS 100 ML IV + SPIKE MINIBAG* 100 ML IV SCH ×3 (06:02→21:05)
[2018-02-13] MEDS ORDERED: NS 1000 ML 1,000 ML ONE (06:03)
[2018-02-13 06:07] LABS: BASOPHILS # (AUTO) 0.1 X10^3/uL (0.0-0.1); BASOPHILS % (AUTO) 1.2 % (0.2-1.0); EOSINOPHILS # (AUTO) 0.3 x10^3/uL (0.0-0.2); EOSINOPHILS % (AUTO) 3.9 % (0.9-2.9); HEMATOCRIT 35.1 % (36.0-47.0); HEMOGLOBIN 12.4 g/dL (12.0-16.0); LYMPHOCYTES # (AUTO) 2.8 X10^3/uL (1.3-2.9); LYMPHOCYTES % (AUTO) 33.8 % (21.0-51.0); MEAN CORPUSCULAR HGB CONC 35.4 g/dL (33.0-35.0); MEAN CORPUSCULAR VOLUME 87.6 fL (80.0-100.0); MEAN PLATELET VOLUME 7.4 fL (7.4-11.0); MONOCYTES # (AUTO) 1.4 x10^3/uL (0.3-0.8); MONOCYTES % (AUTO) 16.9 % (0.0-13.0); NEUTROPHILS # (AUTO) 3.7 x10^3/uL (2.2-4.8); NEUTROPHILS % (AUTO) 44.2 % (42.0-75.0); PLATELET COUNT 349 X10^3/uL (150.0-450.0); RED BLOOD COUNT 4.01 X10^6/uL (3.5-5.4); RED CELL DISTRIBUTION WIDTH 14.9 % (11.6-16.5); WHITE BLOOD COUNT 8.4 X10^3/uL (3.6-10.0)
[2018-02-13 06:30] LABS: ALANINE AMINOTRANSFERASE 17 Units/L (12-78); ALKALINE PHOSPHATASE 48 Units/L (46-116); ASPARTATE AMINO TRANSFERASE 31 Units/L (15-37); BLOOD UREA NITROGEN 15 mg/dL (7-18); CALCIUM 8.2 mg/dL (8.5-10.1); CHLORIDE 102 mmol/L (98-107); CREATININE 1.24 mg/dL (0.55-1.02); SODIUM 135 mmol/L (136-145); eGFR BLACK RACES 53 (>60); eGFR NON BLACK RACES 44 (>60)
[2018-02-13] MEDS: JANUVIA PO SCH (09:14)
[2018-02-13] MEDS: APRESOLINE TAB 25 MG PO SCH ×4 (09:14→20:22)
[2018-02-13] MEDS: ZANTAC PO SCH ×2 (09:14→20:24)
[2018-02-13] MEDS: MIRALAX POWDER (1 DOSE 17GM) PO SCH (09:14)
[2018-02-13] MEDS: EFFEXOR XR 37.5 MG CAP PO SCH (09:15)
[2018-02-13] MEDS: TAB-A-VITE PO SCH (09:15)
[2018-02-13] MEDS: COLACE CAP 100 MG PO SCH ×2 (09:15→20:22)
[2018-02-13] MEDS: LANOXIN PO SCH (09:15)
[2018-02-13] MEDS: ZESTRIL TAB 10 MG PO SCH ×2 (09:15→20:25)
[2018-02-13] MEDS: VITAMIN C PO SCH ×2 (09:15→20:24)
[2018-02-13] MEDS: ELIQUIS PO SCH ×2 (09:16→20:23)
[2018-02-13] MEDS: LEVEMIR SC SCH ×2 (09:22→20:23)
[2018-02-13] MEDS: PROTONIX INJ 40 MG VIAL IVP SCH ×2 (09:23→20:24)
[2018-02-13] MEDS: MYLICON TAB 80 MG CHEW PO SCH ×2 (09:26→20:23)
[2018-02-13] MEDS: CITRACAL + VITAMIN D PO SCH (09:26)
[2018-02-13] MEDS: TRICOR TAB 48 MG PO SCH (09:26)
[2018-02-13] MEDS: CALAN SR 180 MG PO SCH (09:26)
[2018-02-13] MEDS: QUESTRAN PO SCH (09:26)
[2018-02-13] MEDS: NITRODUR PATCH 0.4 MG/HR TD SCH (09:27)
[2018-02-13] MEDS: CHECK PATCH XX SCH ×2 (09:28→20:38)
[2018-02-13] MEDS: PEPCID 20 MG IV PREMIX* 20 MG/50 ML BAG IV SCH ×2 (09:50→20:24)
[2018-02-13] MEDS: HumuLIN R SC PRN ×2 (10:50→16:01)
[2018-02-13] MEDS: NORMODYNE INJ 20 MG VIAL IV PRN ×2 (11:07→14:17)
[2018-02-13] MEDS: NORCO 5/325 MG TAB PO PRN ×2 (11:34→17:40)
[2018-02-13] MEDS: SYNTHROID 50 mcg TAB PO SCH (16:02)
[2018-02-13] MEDS: ZOFRAN INJ 4 MG VIAL IVP PRN (18:10)
[2018-02-13] MEDS: SNACK - Diabetic Appropriate PO SCH (19:42)
[2018-02-13] MEDS ORDERED: NS 100 ML IV + SPIKE MINIBAG* 100 ML IV ONE (20:18)
[2018-02-13] MEDS: LIPITOR TAB 20 MG PO SCH (20:23)
[2018-02-13] MEDS: TRAVATAN Z EACHEYE SCH (20:25)
[2018-02-14] MEDS: ARTIFICIAL TEARS DROPS EACHEYE SCH ×3 (05:22→21:28)
[2018-02-14] MEDS: ZOSYN VIAL 3.375 GM 3.375 GM in NS 100 ML IV + SPIKE MINIBAG* 100 ML IV SCH ×3 (05:23→21:28)
[2018-02-14] MEDS: NORMODYNE INJ 20 MG VIAL IV PRN (06:38)
[2018-02-14 07:11] LABS: BASOPHILS # (AUTO) 0.1 X10^3/uL (0.0-0.1); BASOPHILS % (AUTO) 0.9 % (0.2-1.0); EOSINOPHILS # (AUTO) 0.2 x10^3/uL (0.0-0.2); EOSINOPHILS % (AUTO) 2.6 % (0.9-2.9); HEMATOCRIT 37.8 % (36.0-47.0); HEMOGLOBIN 13.2 g/dL (12.0-16.0); LYMPHOCYTES # (AUTO) 1.6 X10^3/uL (1.3-2.9); LYMPHOCYTES % (AUTO) 17.9 % (21.0-51.0); MEAN CORPUSCULAR HEMOGLOBIN 30.8 pg (27.0-34.0); MEAN PLATELET VOLUME 7.3 fL (7.4-11.0); MONOCYTES # (AUTO) 1.4 x10^3/uL (0.3-0.8); MONOCYTES % (AUTO) 15.2 % (0.0-13.0); NEUTROPHILS # (AUTO) 5.7 x10^3/uL (2.2-4.8); NEUTROPHILS % (AUTO) 63.4 % (42.0-75.0); PLATELET COUNT 312 X10^3/uL (150.0-450.0); RED CELL DISTRIBUTION WIDTH 14.6 % (11.6-16.5); WHITE BLOOD COUNT 8.9 X10^3/uL (3.6-10.0)
--- NOTE | 2018-02-14 07:18 | RAD ---
HISTORY: Shortness of breath Study: Chest AP portable Comparison: 02/12/2018, 02/11/2018 Findings: The heart is within normal limits in size. The manisha are normal. The lungs are well inflated and free of acute alveolar infiltrates. No pleural effusions are identified. The bony thorax is unremarkable. IMPRESSION: Lungs remain clear Reported By:
[2018-02-14 07:32] LABS: ALANINE AMINOTRANSFERASE 18 Units/L (12-78); ALBUMIN 3.2 g/dL (3.4-5.0); ALKALINE PHOSPHATASE 49 Units/L (46-116); ASPARTATE AMINO TRANSFERASE 13 Units/L (15-37); BLOOD UREA NITROGEN 9 mg/dL (7-18); CALCIUM 8.8 mg/dL (8.5-10.1); CARBON DIOXIDE 25.4 mmol/L (21-32); CHLORIDE 103 mmol/L (98-107); COR CA(FOR HYPOALB) 9.4 mg/dL (8.5-10.1); CREATININE 0.88 mg/dL (0.55-1.02); SODIUM 138 mmol/L (136-145); TOTAL PROTEIN 6.5 g/dL (6.4-8.2); eGFR BLACK RACES > 60 (>60); eGFR NON BLACK RACES > 60 (>60)
[2018-02-14] MEDS: MIRALAX POWDER (1 DOSE 17GM) PO SCH (08:55)
[2018-02-14] MEDS: NITRODUR PATCH 0.4 MG/HR TD SCH (08:55)
[2018-02-14] MEDS: PROTONIX INJ 40 MG VIAL IVP SCH ×2 (08:59→20:29)
[2018-02-14] MEDS: QUESTRAN PO SCH (08:59)
[2018-02-14] MEDS: PEPCID 20 MG IV PREMIX* 20 MG/50 ML BAG IV SCH ×2 (08:59→20:29)
[2018-02-14] MEDS: APRESOLINE TAB 25 MG PO SCH ×4 (09:00→20:27)
[2018-02-14] MEDS: ELIQUIS PO SCH ×2 (09:00→20:28)
[2018-02-14] MEDS: EFFEXOR XR 37.5 MG CAP PO SCH (09:00)
[2018-02-14] MEDS: CITRACAL + VITAMIN D PO SCH (09:01)
[2018-02-14] MEDS: TAB-A-VITE PO SCH (09:01)
[2018-02-14] MEDS: ZANTAC PO SCH ×2 (09:01→20:30)
[2018-02-14] MEDS: ZESTRIL TAB 10 MG PO SCH ×2 (09:01→20:30)
[2018-02-14] MEDS: CALAN SR 180 MG PO SCH (09:01)
[2018-02-14] MEDS: TRICOR TAB 48 MG PO SCH (09:01)
[2018-02-14] MEDS: JANUVIA PO SCH (09:01)
[2018-02-14] MEDS: MYLICON TAB 80 MG CHEW PO SCH ×2 (09:01→20:29)
[2018-02-14] MEDS: VITAMIN C PO SCH ×2 (09:01→20:30)
[2018-02-14] MEDS: LANOXIN PO SCH (09:02)
[2018-02-14] MEDS: CHECK PATCH XX SCH ×2 (10:17→20:54)
[2018-02-14] MEDS: COLACE CAP 100 MG PO SCH ×2 (10:18→20:28)
[2018-02-14] MEDS: LEVEMIR SC SCH ×2 (10:18→20:12)
[2018-02-14] MEDS: SYNTHROID 50 mcg TAB PO SCH (17:30)
[2018-02-14] MEDS: SNACK - Diabetic Appropriate PO SCH (20:11)
[2018-02-14] MEDS: LIPITOR TAB 20 MG PO SCH (20:29)
[2018-02-14] MEDS: TRAVATAN Z EACHEYE SCH (20:30)
[2018-02-15] MEDS: NORMODYNE INJ 20 MG VIAL IV PRN ×2 (04:35→05:26)
[2018-02-15] MEDS: ZOSYN VIAL 3.375 GM 3.375 GM in NS 100 ML IV + SPIKE MINIBAG* 100 ML IV SCH ×2 (05:05→18:34)
[2018-02-15] MEDS: ARTIFICIAL TEARS DROPS EACHEYE SCH ×2 (05:29→14:08)
[2018-02-15 06:55] LABS: BASOPHILS # (AUTO) 0.1 X10^3/uL (0.0-0.1); BASOPHILS % (AUTO) 1.1 % (0.2-1.0); EOSINOPHILS # (AUTO) 0.2 x10^3/uL (0.0-0.2); EOSINOPHILS % (AUTO) 3.2 % (0.9-2.9); HEMATOCRIT 36.4 % (36.0-47.0); HEMOGLOBIN 12.8 g/dL (12.0-16.0); LYMPHOCYTES # (AUTO) 1.5 X10^3/uL (1.3-2.9); LYMPHOCYTES % (AUTO) 20.3 % (21.0-51.0); MEAN CORPUSCULAR HEMOGLOBIN 30.9 pg (27.0-34.0); MEAN CORPUSCULAR HGB CONC 35.2 g/dL (33.0-35.0); MEAN CORPUSCULAR VOLUME 87.7 fL (80.0-100.0); MEAN PLATELET VOLUME 7.3 fL (7.4-11.0); MONOCYTES # (AUTO) 0.9 x10^3/uL (0.3-0.8); NEUTROPHILS # (AUTO) 4.6 x10^3/uL (2.2-4.8); NEUTROPHILS % (AUTO) 62.4 % (42.0-75.0); PLATELET COUNT 284 X10^3/uL (150.0-450.0); RED BLOOD COUNT 4.15 X10^6/uL (3.5-5.4); RED CELL DISTRIBUTION WIDTH 14.5 % (11.6-16.5); WHITE BLOOD COUNT 7.3 X10^3/uL (3.6-10.0)
[2018-02-15 07:18] LABS: ALANINE AMINOTRANSFERASE 17 Units/L (12-78); ALBUMIN 3.1 g/dL (3.4-5.0); ALKALINE PHOSPHATASE 48 Units/L (46-116); ASPARTATE AMINO TRANSFERASE 21 Units/L (15-37); BLOOD UREA NITROGEN 6 mg/dL (7-18); CALCIUM 8.3 mg/dL (8.5-10.1); CARBON DIOXIDE 26.9 mmol/L (21-32); CHLORIDE 101 mmol/L (98-107); COR NA(FOR HYPERGLY) 138 mmol/L (136-145); CREATININE 0.81 mg/dL (0.55-1.02); SODIUM 136 mmol/L (136-145); TOTAL PROTEIN 6.5 g/dL (6.4-8.2); eGFR BLACK RACES > 60 (>60); eGFR NON BLACK RACES > 60 (>60)
--- NOTE | 2018-02-15 08:22 | PCM.PROG ---
Progress Note - Progress Note for Day of Date: 02/14/18 - Subjective Subjective: IS BEING TREATED FOR ATRIAL FIBRILLATION WITH RVR AND ACCELERATED HYPERTENSION. TODAY, SHE IS ALERT AND ORIENTED, LYING IN BED ON MORNING ROUNDS. SHE CONTINUES WITH COMPLAINTS OF GENERALIZED WEAKNESS. SHE HAS REMAINED HYPERTENSIVE DESPITE CHANGES TO MEDICATIONS. 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 HER VITALS TODAY ARE 97.8-74-17-98%-176/ 76. POTASSIUM IS 3.2, OTHERWISE, SHE REMAINS HEMODYNAMICALLY STABLE TODAY. TODAY , WE WILL INCREASE HYDRALAZINE TO 100MG PO QID. OTHERWISE, WE WILL CONTINUE WITH CURRENT PLAN OF CARE TODAY. WE WILL FOLLOW UP WITH AM LABS AND CONTINUE TO MONITOR PATIENT. - Past Medical Family Social History Past Med/Fam/Surg Hx: No changes since H&P Allergies: Allergies tuberculin,PPD,multi-puncture Allergy (Verified 12/16/17 20:21) - Review of Systems ROS: No change since H&P - Vital Signs and I&O's Vital Signs: Temperature 98.3 F Pulse Rate [Apical] 106 Pulse Rate [Right Radial] 69 Pulse Rate 80 Respiratory Rate 23 Blood Pressure [Right Arm] 167/73 Blood Pressure [Left Arm] 173/108 Blood Pressure 215/100 O2 Sat by Pulse Oximetry 97 Intake and Output: Intake & Output 02/12/18 02/13/18 02/14/18 02/15/18 11:59 11:59 11:59 11:59 Intake Total 1180 3147 2192 2474 Output Total 750 1700 3075 2650 Balance 430 5007 -503 -176 - Physical Exam Oriented: Normal Eyes: Normal Ear: Normal Nose: Normal Throat: Normal Respiratory: Diminished Cardiovascular: Tachycardia. negative: S3, S4, Murmur : Normal Auscultation: Bowel Sounds: Normal Palpation: Normal Tenderness: Normal Skin: Normal Musculoskeletal: Normal Psychiatric: Normal Mood Description: Calm Affect: Normal Speech Pattern: Clear, Appropriate - Laboratory and Diagnostics Result Diagrams: 02/15/18 06:18 02/15/18 06:18 Labs: 02/08/18 18:55 Stool Stool Culture - Final 02/08/18 18:55 Stool - Final 02/05/18 16:34 Blood Blood Culture - Final 02/05/18 16:16 Blood Blood Culture - Final Laboratory WBC 7.3 X10^3/uL (3.6-10.0) 02/15/18 06:18 RBC 4.15 X10^6/uL (3.5-5.4) 02/15/18 06:18 Hgb 12.8 g/dL (12.0-16.0) 02/15/18 06:18 Hct 36.4 % (36.0-47.0) 02/15/18 06:18 MCV 87.7 fL (80.0-100.0) 02/15/18 06:18 MCH 30.9 pg (27.0-34.0) 02/15/18 06:18 MCHC 35.2 g/dL (33.0-35.0) H 02/15/18 06:18 RDW 14.5 % (11.6-16.5) 02/15/18 06:18 Plt Count 284 X10^3/uL (150.0-450.0) 02/15/18 06:18 Plt Count Comment Increased (ADEQUATE) A 02/05/18 09:35 MPV 7.3 fL (7.4-11.0) L 02/15/18 06:18 Neut % (Auto) 62.4 % (42.0-75.0) 02/15/18 06:18 Lymph % (Auto) 20.3 % (21.0-51.0) L 02/15/18 06:18 [place] % (Auto) 13.0 % (0.0-13.0) 02/15/18 06:18 Eos % (Auto) 3.2 % (0.9-2.9) H 02/15/18 06:18 Baso % (Auto) 1.1 % (0.2-1.0) H 02/15/18 06:18 Neut # (Auto) 4.6 x10^3/uL (2.2-4.8) 02/15/18 06:18 Lymph # (Auto) 1.5 X10^3/uL (1.3-2.9) 02/15/18 06:18 [place] # (Auto) 0.9 x10^3/uL (0.3-0.8) H 02/15/18 06:18 Eos # (Auto) 0.2 x10^3/uL (0.0-0.2) 02/15/18 06:18 Baso # (Auto) 0.1 X10^3/uL (0.0-0.1) 02/15/18 06:18 Absolute Nucleated RBC 0.0 /100WBC 02/15/18 06:18 Plt Morphology Comment Normal (NORMAL) 02/05/18 09:35 RBC Morphology Normal (NORMAL) 02/05/18 09:35 INR Target Range - 02/05/18 09:35 INR 1.03 (0.8-1.3) 02/05/18 09:35 APTT 30.0 SECONDS (22.9-36.5) 02/05/18 09:35 PTT Comment - 02/05/18 09:35 Sodium 136 mmol/L (136-145) 02/15/18 06:18 Corrected Sodium 138 mmol/L (136-145) 02/15/18 06:18 Potassium 3.4 mmol/L (3.5-5.1) L 02/15/18 06:18 Chloride 101 mmol/L (98-107) 02/15/18 06:18 Carbon Dioxide 26.9 mmol/L (21-32) 02/15/18 06:18 BUN 6 mg/dL (7-18) L 02/15/18 06:18 Creatinine 0.81 mg/dL (0.55-1.02) 02/15/18 06:18 Est GFR (MDRD) Af Amer > 60 (>60) 02/15/18 06:18 Est GFR (MDRD) Non-Af > 60 (>60) 02/15/18 06:18 Glucose 183 mg/dL (65-99) H 02/15/18 06:18 POC Glucose (mg/dL) 152 mg/dL (65-99) H 02/15/18 05:33 Lactic Acid 1.0 mmol/L (0.4-2.0) 02/06/18 16:00 Calcium 8.3 mg/dL (8.5-10.1) L 02/15/18 06:18 Corrected Calcium 9.0 mg/dL (8.5-10.1) 02/15/18 06:18 Magnesium 1.8 mg/dL (1.7-2.9) 02/11/18 05:29 Total Bilirubin 0.40 mg/dL (0.2-1.0) 02/15/18 06:18 AST 21 Units/L (15-37) 02/15/18:18 ALT 17 Units/L (12-78) 02/15/18 06:18 Alkaline Phosphatase 48 Units/L (46-116) 02/15/18 06:18 Creatine Kinase 33 Units/L (26-192) 02/10/18 22:45 CK-MB (CK-2) 1.6 ng/mL (0-4.0) 02/10/18 22:45 CK/CKMB % Calc 4.9 % (<4) 02/10/18 22:45 Troponin I < 0.02 ng/mL (0-1.5) 02/10/18 22:45 Total Protein 6.5 g/dL (6.4-8.2) 02/15/18 06:18 Albumin 3.1 g/dL (3.4-5.0) L 02/15/18 06:18 Globulin 3.4 g/dL (2.5-4.5) 02/15/18 06:18 Albumin/Globulin Ratio 0.9 Ratio (1.1-2.1) L 02/15/18 06:18 Amylase 23 Units/L (25-115) L 02/05/18 09:35 Lipase 97 Units/L (73-393) 02/05/18 09:35 Specimen Type Catherized urine 02/06/18 16:25 Urine Color Yellow (YELLOW) 02/06/18 16:25 Urine Appearance Clear (CLEAR) 02/06/18 16:25 Urine pH 7.0 (5.0 - 8.0) 02/06/18 16:25 Ur Specific [place] 1.005 (1.000-1.030) 02/06/18 16:25 Urine Protein 3+ (NEGATIVE) 02/06/18 16:25 Urine Glucose (UA) 4+ (NEGATIVE) 02/06/18 16:25 Urine Ketones 1+ (NEGATIVE) 02/06/18 16:25 Urine Occult Blood Negative (NEGATIVE) 02/06/18 16:25 Urine Nitrite Negative (NEGATIVE) 02/06/18 16:25 Urine Bilirubin Negative (NEGATIVE) 02/06/18 16:25 Urine Urobilinogen Normal (NORMAL) 02/06/18 16:25 Ur Leukocyte Esterase Negative (NEGATIVE) 02/06/18 16:25 Urine RBC None seen /HPF (NONE SEEN) 02/06/18 16:25 Urine WBC 0-2 /HPF (NONE SEEN) 02/06/18 16:25 Ur Squamous Epith Cells Rare /HPF (NEGATIVE) 02/06/18 16:25 Amorphous Sediment Trace /HPF (NEGATIVE) 02/06/18 16:25 Urine Bacteria Negative /HPF (NEGATIVE) 02/06/18 16:25 Urine Mucus Rare /HPF (NEGATIVE) 02/05/18 12:46 Ur Culture Indicated? No/not indicated 02/06/18 16:25 Stool Description 8g,soft,brown,unform 02/08/18 18:55 Stl Occult Blood (IFOB) Negative (NEGATIVE) 02/08/18 18:55 Stool for White Cells Negative (NEGATIVE) 02/08/18 18:55 Stl C. diff Tox B Gene Cancelled 02/08/18 18:55 Stl C. diff [id number] Cancelled 02/08/18 18:55 Digoxin 0.32 ng/mL (0.9-2) L 02/12/18 05:32 Cryptosporid parvum Ag Negative (NEGATIVE) 02/08/18 18:55 E. histolytica Antigen Negative (NEGATIVE) 02/08/18 18:55 Giardia lamblia Ag Negative (NEGATIVE) 02/08/18 18:55 - Plan (1) Atrial fibrillation with rapid ventricular response Status: Acute Plan: verapamil ER 180MG PO BID, ELIQUIS 2.5MG PO BID, DIGOXIN 0.125MG PO DAILY , personnel monitor, supplemental oxygen, continue to monitor (2) Abdominal pain Status: Acute Qualifiers: Abdominal location: right upper quadrant Qualified Code(s): R10.11 - Right upper quadrant pain Plan: norco, continue to monitor (3) Nausea & vomiting Status: Acute Qualifiers: Vomiting type: hematemesis Qualified Code(s): K92.0 - Hematemesis Plan: phenergan po, zofran 4mg iv q8h prn, continue to monitor (4) Diabetes mellitus type 1, uncontrolled Status: Acute Qualifiers: Diabetes mellitus complication status: with unspecified complications Qualified Code(s): E10.8 - Type 1 diabetes mellitus with unspecified complications; E10.65 - Type 1 diabetes mellitus with hyperglycemia; E10.65 - Type 1 diabetes mellitus with hyperglycemia; E10.65 - Type 1 diabetes mellitus with hyperglycemia; E10.65 - Type 1 diabetes mellitus with hyperglycemia Plan: LEVEMIR 20 UNITS SC BID, HUMULIN R SLIDING SCALE, MONITOR OTBS (5) Accelerated hypertension Status: Acute Plan: CATAPRES PATCH 0.3MG TD WEEKLY, CONTINUE LISINOPRIL, CONTINUE HYDRALAZINE , CONTINUE TO MONITOR
[2018-02-15] MEDS: PEPCID 20 MG IV PREMIX* 20 MG/50 ML BAG IV SCH (08:59)
[2018-02-15] MEDS: TRICOR TAB 48 MG PO SCH (09:00)
[2018-02-15] MEDS: QUESTRAN PO SCH (09:00)
[2018-02-15] MEDS: APRESOLINE TAB 25 MG PO SCH ×3 (09:00→18:33)
[2018-02-15] MEDS: MYLICON TAB 80 MG CHEW PO SCH (09:00)
[2018-02-15] MEDS: CITRACAL + VITAMIN D PO SCH (09:00)
[2018-02-15] MEDS: CALAN SR 180 MG PO SCH (09:00)
[2018-02-15] MEDS: MIRALAX POWDER (1 DOSE 17GM) PO SCH (09:01)
[2018-02-15] MEDS: NITRODUR PATCH 0.4 MG/HR TD SCH (09:01)
[2018-02-15] MEDS: EFFEXOR XR 37.5 MG CAP PO SCH (09:02)
[2018-02-15] MEDS: VITAMIN C PO SCH (09:02)
[2018-02-15] MEDS: LANOXIN PO SCH (09:02)
[2018-02-15] MEDS: ZANTAC PO SCH (09:02)
[2018-02-15] MEDS: ZESTRIL TAB 10 MG PO SCH (09:02)
[2018-02-15] MEDS: COLACE CAP 100 MG PO SCH (09:03)
[2018-02-15] MEDS: TAB-A-VITE PO SCH (09:03)
[2018-02-15] MEDS: ELIQUIS PO SCH (09:03)
[2018-02-15] MEDS: CHECK PATCH XX SCH (09:04)
[2018-02-15] MEDS: JANUVIA PO SCH (09:04)
[2018-02-15] MEDS: PROTONIX INJ 40 MG VIAL IVP SCH (09:04)
[2018-02-15] MEDS: LEVEMIR SC SCH (13:40)
[2018-02-15] MEDS: SYNTHROID 50 mcg TAB PO SCH (18:33)
[2018-02-15 19:11] VITALS: BP 144/67
== END 2018-02-15 19:30 | DRG 309 ==
LOC: ER 09:32 → ICU 15:03
PROVIDERS: ADMIT Internal Medicine; ATTEND Internal Medicine
DX: I48.91 Unspecified atrial fibrillation (principal); R07.89 Other chest pain; D72.828 Other elevated white blood cell count; E10.65 Type 1 diabetes mellitus with hyperglycemia; I50.9 Heart failure, unspecified; I25.10 Atherosclerotic heart disease of native coronary artery without angina pectoris; K92.0 Hematemesis; R10.11 Right upper quadrant pain; I10 Essential (primary) hypertension; K21.9 Gastro-esophageal reflux disease without esophagitis; E78.2 Mixed hyperlipidemia; E03.8 Other specified hypothyroidism; L89.152 Pressure ulcer of sacral region, stage 2; R06.02 Shortness of breath
CPT/HCPCS: 36415; 71045; 74176; 80053; 80162; 81001; 82150; 82274; 82550; 82553; 82947; 83605; 83630; 83690; 83735; 84132; 84484; 85025; 85610; 85730; 87040; 87045; 87328; 87329; 87336; 87427; 87449; 93005; 93010; 96365; 96367; 96374; 96375; 99231; 99284; 99285; A4216; A4222; C9113; Q0169; S0028; 1956; J0696; J1160; J1580; J1650; J1815; J2405; J2543; J3480; J3490

== ENCOUNTER 2018-08-19 13:53 | Inpatient (IN) ==
[2018-08-19] MEDS ORDERED: CONSULT PHARMACY - ANTIBIOTIC XX SCH (15:00)
[2018-08-19 15:22] LABS: LACTIC ACID 1.6 mmol/L (0.4-2.0)
[2018-08-19] MEDS: NS 1000 ML 1,000 ML IV SCH (15:32)
[2018-08-19] MEDS: LEVAQUIN PREMIX IV 500 MG 500 MG/100 ML BAG IV SCH (15:32)
[2018-08-19] MEDS: HumuLIN R SC PRN ×4 (15:44→23:52)
[2018-08-19 18:00] VITALS: BMI 24.4
[2018-08-19 19:15] LABS: BILIRUBIN,URINE NEGATIVE (NEGATIVE); BLOOD/HEMOGLOBIN,URINE 1+ (NEGATIVE); GLUCOSE, URINE 4+ (NEGATIVE); KETONES,URINE NEGATIVE (NEGATIVE); LEUKOCYTE ESTERASE ,URINE 3+ (NEGATIVE); NITRITES,URINE NEGATIVE (NEGATIVE); PROTEIN,URINE 2+ (NEGATIVE); UROBILINOGEN,URINE NORMAL (NORMAL)
[2018-08-19 19:29] LABS: APPEARANCE,URINE CLOUDY (CLEAR); COLOR,URINE YELLOW (YELLOW)
[2018-08-19 19:58] LABS: BACTERIA,URINE 2+ /HPF (NEGATIVE); RBC,URINE 0-2 /HPF (NONE SEEN); SQUAMOUS EPITHELIAL CELL,UR MANY /HPF (NEGATIVE)
[2018-08-19 19:59] LABS: AMORPHOUS SEDIMENT,UR 1+ /HPF (NEGATIVE)
[2018-08-20] MEDS ORDERED: NORCO 5/325 MG TAB ONE (04:01)
[2018-08-20] MEDS: NORCO 5/325 MG TAB PO PRN ×2 (04:05→18:04)
[2018-08-20] MEDS: NS 1000 ML 1,000 ML IV SCH ×3 (05:42→20:51)
[2018-08-20 05:52] LABS: LACTIC ACID 1.2 mmol/L (0.4-2.0)
[2018-08-20 05:55] LABS: ALBUMIN 2.6 g/dL (3.4-5.0); CALCIUM 7.7 mg/dL (8.5-10.1); CARBON DIOXIDE 23.6 mmol/L (21-32); COR CA(FOR HYPOALB) 8.8 mg/dL (8.5-10.1); CREATININE 2.81 mg/dL (0.55-1.02); TOTAL PROTEIN 6.1 g/dL (6.4-8.2)
[2018-08-20 05:58] LABS: BASOPHILS # (AUTO) 0.1 X10^3/uL (0.0-0.1); BASOPHILS % (AUTO) 0.6 % (0.2-1.0); EOSINOPHILS # (AUTO) 0.4 x10^3/uL (0.0-0.2); EOSINOPHILS % (AUTO) 2.9 % (0.9-2.9); HEMATOCRIT 32.4 % (36.0-47.0); HEMOGLOBIN 11.5 g/dL (12.0-16.0); LYMPHOCYTES # (AUTO) 1.2 X10^3/uL (1.3-2.9); LYMPHOCYTES % (AUTO) 8.5 % (21.0-51.0); MEAN CORPUSCULAR HEMOGLOBIN 32.6 pg (27.0-34.0); MEAN CORPUSCULAR HGB CONC 35.5 g/dL (33.0-35.0); MEAN PLATELET VOLUME 8.8 fL (7.4-11.0); MONOCYTES # (AUTO) 1.8 x10^3/uL (0.3-0.8); MONOCYTES % (AUTO) 12.3 % (0.0-13.0); NEUTROPHILS # (AUTO) 10.9 x10^3/uL (2.2-4.8); NEUTROPHILS % (AUTO) 75.7 % (42.0-75.0); PLATELET COUNT 174 X10^3/uL (150.0-450.0); RED BLOOD COUNT 3.53 X10^6/uL (3.5-5.4); WHITE BLOOD COUNT 14.4 X10^3/uL (3.6-10.0)
[2018-08-20] MEDS: HumuLIN R SC PRN ×4 (06:20→20:52)
--- NOTE | 2018-08-20 06:30 | RAD ---
Examination: Chest, PA and lateral views History: Fractured ribs, SOB Comparison 02/14/2018 Findings: Normal heart size with essentially clear lungs and pleural spaces. There is no evidence for pneumothorax or pleural fluid. There is a nonacute compression deformity in the mid thoracic spine. Impression: No acute chest abnormality identified. Reported By:
[2018-08-20] MEDS: MILK OF MAGNESIA PO SCH ×2 (08:47→20:20)
[2018-08-20] MEDS: MORPHINE SULFATE INJ 2 MG INJ IVP PRN ×2 (08:47→13:53)
[2018-08-20 10:25] LABS: BILIRUBIN,URINE NEGATIVE (NEGATIVE); BLOOD/HEMOGLOBIN,URINE 1+ (NEGATIVE); GLUCOSE, URINE 4+ (NEGATIVE); KETONES,URINE NEGATIVE (NEGATIVE); LEUKOCYTE ESTERASE ,URINE 2+ (NEGATIVE); NITRITES,URINE NEGATIVE (NEGATIVE); PROTEIN,URINE 2+ (NEGATIVE); UROBILINOGEN,URINE NORMAL (NORMAL)
[2018-08-20 10:37] LABS: APPEARANCE,URINE SLIGHTLY HAZY (CLEAR); COLOR,URINE YELLOW (YELLOW)
[2018-08-20 10:46] LABS: RBC,URINE 0-2 /HPF (NONE SEEN)
[2018-08-20 10:47] LABS: AMORPHOUS SEDIMENT,UR 2+ /HPF (NEGATIVE); BACTERIA,URINE TRACE /HPF (NEGATIVE); SQUAMOUS EPITHELIAL CELL,UR RARE /HPF (NEGATIVE)
[2018-08-20] MEDS: BUTT CREAM (COMPOUND) TOP PRN ×2 (10:56→20:55)
[2018-08-20] MEDS: LANTISEPTIC TOP PRN ×2 (10:56→20:55)
[2018-08-20] MEDS: DIFLUCAN PO SCH (12:10)
[2018-08-20] MEDS ORDERED: COLACE CAP 100 MG PO SCH (21:00)
[2018-08-21] MEDS: NORCO 5/325 MG TAB PO PRN ×2 (03:23→17:44)
[2018-08-21 05:39] LABS: BASOPHILS # (AUTO) 0.1 X10^3/uL (0.0-0.1); BASOPHILS % (AUTO) 0.5 % (0.2-1.0); EOSINOPHILS # (AUTO) 0.2 x10^3/uL (0.0-0.2); EOSINOPHILS % (AUTO) 1.7 % (0.9-2.9); HEMATOCRIT 32.5 % (36.0-47.0); HEMOGLOBIN 11.4 g/dL (12.0-16.0); LYMPHOCYTES # (AUTO) 0.6 X10^3/uL (1.3-2.9); LYMPHOCYTES % (AUTO) 5.2 % (21.0-51.0); MEAN CORPUSCULAR HEMOGLOBIN 32.4 pg (27.0-34.0); MEAN CORPUSCULAR HGB CONC 34.9 g/dL (33.0-35.0); MEAN CORPUSCULAR VOLUME 92.8 fL (80.0-100.0); MEAN PLATELET VOLUME 8.6 fL (7.4-11.0); MONOCYTES # (AUTO) 1.4 x10^3/uL (0.3-0.8); MONOCYTES % (AUTO) 11.9 % (0.0-13.0); NEUTROPHILS # (AUTO) 9.3 x10^3/uL (2.2-4.8); NEUTROPHILS % (AUTO) 80.7 % (42.0-75.0); PLATELET COUNT 163 X10^3/uL (150.0-450.0); RED CELL DISTRIBUTION WIDTH 12.7 % (11.6-16.5); WHITE BLOOD COUNT 11.6 X10^3/uL (3.6-10.0)
[2018-08-21 05:50] LABS: ALBUMIN 2.5 g/dL (3.4-5.0); CALCIUM 7.7 mg/dL (8.5-10.1); CARBON DIOXIDE 23.3 mmol/L (21-32); COR CA(FOR HYPOALB) 8.9 mg/dL (8.5-10.1); CREATININE 1.81 mg/dL (0.55-1.02)
[2018-08-21] MEDS: HumuLIN R SC PRN ×4 (05:55→21:11)
[2018-08-21] MEDS: DIFLUCAN PO SCH (08:28)
[2018-08-21] MEDS: MILK OF MAGNESIA PO SCH ×2 (08:28→21:13)
[2018-08-21] MEDS: MORPHINE SULFATE INJ 2 MG INJ IVP PRN (08:33)
[2018-08-21] MEDS: NYSTATIN POWDER TOP SCH ×2 (09:20→21:13)
[2018-08-21] MEDS: NS 1000 ML 1,000 ML IV SCH ×2 (09:20→21:14)
[2018-08-21] MEDS ORDERED: NS 500 ML IV 500 ML IV ONE (10:40)
[2018-08-21] MEDS: ZESTRIL TAB 10 MG PO SCH ×2 (11:39→21:14)
[2018-08-21] MEDS: ELIQUIS PO SCH ×2 (11:39→21:13)
[2018-08-21] MEDS: CITRACAL + VITAMIN D PO SCH (11:39)
[2018-08-21] MEDS: SYNTHROID 50 mcg TAB PO SCH (11:39)
[2018-08-21] MEDS: JANUVIA PO SCH (11:39)
[2018-08-21] MEDS: ARTIFICIAL TEARS DROPS OP SCH ×3 (11:39→21:14)
[2018-08-21] MEDS: LEVEMIR SC SCH ×2 (11:40→21:13)
[2018-08-21] MEDS: CALAN SR 180 MG PO SCH (11:40)
[2018-08-21] MEDS: COLACE CAP 100 MG PO SCH ×2 (11:40→21:12)
[2018-08-21] MEDS: MIRALAX POWDER (1 DOSE 17 G) PO SCH (11:40)
[2018-08-21] MEDS: APRESOLINE TAB 25 MG PO SCH ×3 (13:17→21:12)
[2018-08-21] MEDS: LEVAQUIN PREMIX IV 500 MG 500 MG/100 ML BAG IV SCH (14:07)
[2018-08-21] MEDS: SNACK - Diabetic Appropriate PO SCH (21:12)
[2018-08-21] MEDS: TRAVOPROST EACHEYE SCH (21:14)
[2018-08-22] MEDS: NS 1000 ML 1,000 ML IV SCH ×3 (00:53→17:38)
[2018-08-22 05:35] LABS: BASOPHILS # (AUTO) 0.1 X10^3/uL (0.0-0.1); BASOPHILS % (AUTO) 0.7 % (0.2-1.0); EOSINOPHILS # (AUTO) 0.3 x10^3/uL (0.0-0.2); EOSINOPHILS % (AUTO) 2.8 % (0.9-2.9); HEMATOCRIT 30.3 % (36.0-47.0); HEMOGLOBIN 10.6 g/dL (12.0-16.0); LYMPHOCYTES # (AUTO) 0.9 X10^3/uL (1.3-2.9); LYMPHOCYTES % (AUTO) 8.8 % (21.0-51.0); MEAN CORPUSCULAR HEMOGLOBIN 32.7 pg (27.0-34.0); MEAN CORPUSCULAR HGB CONC 34.9 g/dL (33.0-35.0); MEAN CORPUSCULAR VOLUME 93.7 fL (80.0-100.0); MEAN PLATELET VOLUME 8.6 fL (7.4-11.0); MONOCYTES # (AUTO) 1.5 x10^3/uL (0.3-0.8); NEUTROPHILS # (AUTO) 7.3 x10^3/uL (2.2-4.8); NEUTROPHILS % (AUTO) 72.7 % (42.0-75.0); PLATELET COUNT 174 X10^3/uL (150.0-450.0); RED BLOOD COUNT 3.24 X10^6/uL (3.5-5.4); RED CELL DISTRIBUTION WIDTH 12.9 % (11.6-16.5); WHITE BLOOD COUNT 10.1 X10^3/uL (3.6-10.0)
[2018-08-22 05:43] LABS: ALBUMIN 2.2 g/dL (3.4-5.0); CALCIUM 7.5 mg/dL (8.5-10.1); CARBON DIOXIDE 25.4 mmol/L (21-32); COR CA(FOR HYPOALB) 8.9 mg/dL (8.5-10.1); CREATININE 1.81 mg/dL (0.55-1.02); TOTAL PROTEIN 5.7 g/dL (6.4-8.2)
[2018-08-22] MEDS: ARTIFICIAL TEARS DROPS OP SCH ×3 (05:43→22:22)
[2018-08-22] MEDS: HumuLIN R SC PRN ×4 (05:44→21:24)
[2018-08-22] MEDS: NORCO 5/325 MG TAB PO PRN ×2 (06:48→17:39)
[2018-08-22] MEDS: MILK OF MAGNESIA PO SCH ×2 (08:12→21:23)
[2018-08-22] MEDS: ZESTRIL TAB 10 MG PO SCH ×2 (08:12→21:25)
[2018-08-22] MEDS: CALAN SR 180 MG PO SCH (08:13)
[2018-08-22] MEDS: DIFLUCAN PO SCH (08:13)
[2018-08-22] MEDS: ELIQUIS PO SCH ×2 (08:13→21:22)
[2018-08-22] MEDS: SYNTHROID 50 mcg TAB PO SCH (08:13)
[2018-08-22] MEDS: COLACE CAP 100 MG PO SCH ×2 (08:13→21:23)
[2018-08-22] MEDS: LEVEMIR SC SCH ×3 (08:14→21:23)
[2018-08-22] MEDS: JANUVIA PO SCH (08:14)
[2018-08-22] MEDS: CITRACAL + VITAMIN D PO SCH (08:14)
[2018-08-22] MEDS: MIRALAX POWDER (1 DOSE 17 G) PO SCH (08:14)
[2018-08-22] MEDS: NYSTATIN POWDER TOP SCH ×2 (08:15→21:26)
[2018-08-22 09:23] LABS: YEAST,URINE MANY /HPF (NEGATIVE)
[2018-08-22] MEDS: APRESOLINE TAB 25 MG PO SCH (09:43)
--- NOTE | 2018-08-22 10:05 | DR.H&P ---
H&P - History & Physical for Day of: H&P Date: 08/19/18 - Chief Complaint Chief Complaint: MULTIPLE RIB FX, AMS, INCREASED BLOOD SUGAR - History of Present Illness History of Present Illness: IS A 82 YEAR OLD PATIENT OF OURS. SHE IS A RESIDENT OF [facility]. IS A DIRECT ADMISSION FROM [facility] DUE TO MULTIPLE RIB FRACTURES, A CONTUSION TO THE FOREHEAD, AND MULTIPLE BRUISING FOLLOWING A FALL TWO DAYS AGO. HER BLOOD SUGAR HAS ALSO BEEN ELEVATED. A RIB SERIES WAS OBTAINED ON 08/18/18 WHICH REVEALED: Prominent skin fold on the left causing the appearance of a pneumothorax. I see no definite evidence of a pneumothorax however on any of the images. Findings of nondisplaced fractures involving the left 5th rib and 8th rib with equivocal fractures involving posterior ribs inferiorly on the left. Clinical correlation is recommended. Please note that costal cartilage separation and chondral fractures may not be seen by plain film radiographs. ON TODAYS ADMISSION, SHE IS NOTED WITH ALTERED MENTAL STATUS. HER VITALS ON ARRIVAL WERE 98.3-62-18-95%-125/60. LABS WERE OBTAINED. ABNORMAL LAB VALUES INCLUDE THE FOLLOWING: WBC 14.4, HGB 11.5, HCT 32.4, SODIUM 124, CHLORIDE 89, BUN 41, CREATININE 2.83, GLUCOSE 635, AST 11, ALBUMIN 3.1. URINALYSIS REVEALED WBC TNTC , RBC 0-2, LEUKOCYTES 3+, BACTERIA 2+, YEAST MANY. A CHEST XRAY WAS OBTAINED AND REVEALED: Normal heart size with essentially clear lungs and pleural spaces. There is no evidence for pneumothorax or pleural fluid. There is a nonacute compression deformity in the mid thoracic spine. EKG REVEALED JUNCTIONAL RHYTHM WITH HR 52. SHE WAS STARTED ON NORMAL SALINE AT 75ML/HR, LEVAQUIN 500MG IV Q48H, AND DIFLUCAN 100MG PO DAILY FOR DEHYDRATION AND A URINARY TRACT INFECTION. WE WILL RESUME HOME MEDICATIONS AND START HUMULIN R SLIDING SCALE WITH OTBS ACHS. OTHERWISE, WE WILL FOLLOW UP WITH AM LABS AND CONTINUE TO MONITOR. - Past Medical History Past Medical History: Coronary Artery Disease, Hypertension, Dyslipidemia, Diabetes, Depression, Hypothyroidism, Anemia, CVA, Asthma, GERD, Arthritis, CHF Additional Medical History: DVT, Sleep Apnea, Depression, Chronic Sinusitis, Allergic Rhinitis, Constipation, Edema, UTI's, Pneumonia, Arthritis, Cataracts, Osteoporosis, Glaucoma, Ear Infections, Gastrointestinal Ulcer, Cardiac Arrhythmia, Muscle Weakness, Osteoporsis, Restless leg syndrome - Past Surgical History Surgical History: Angioplasty/Stents, FLORICULTURIST Surgery Additional Surgical History: Sinus surgery - Family History Family Medical History: Diabetes Mellitus, [place], Coronary Artery Disease, Sudden Cardiac - Social History Does patient currently use any type of tobacco product: No Have you used tobacco products in the last 12 months: No Type of Tobacco Use: None Does any household member use tobacco: No Alcohol Use: None Drug Use: None - Medications Home Medications: tuberculin,PPD,multi-puncture Allergy (Verified 08/17/18 17:34) CONTINUE taking the following medications fenofibrate 54 mg PO DAILY 08/19/18 [History] hydralazine 100 mg PO QID 08/19/18 [History] iron-folic acid-mv, min cmb#15 [Hemocyte-Plus] 1 cap PO QDAY 08/19/18 [History] pantoprazole [Protonix] 40 mg PO QDAY 08/19/18 [History] polyvinyl alcohol [Artificial Tears (polyvin alc)] 1 drp OPHTHALMIC (EYE) TID 08/19/18 [History] tramadol 50 mg PO Q6H PRN 08/19/18 [History] - Review of Systems Constitutional: See HPI, Weakness Eyes: No Symptoms Reported ENT: No Symptoms Reported Respiratory: Shortness of Breath Cardiovascular: No Symptoms Reported Gastrointestinal: Abdominal Pain Genitourinary: No Symptoms Reported Musculoskeletal: See HPI, Other (LEFT RIB PAIN ) Skin: See HPI, Bruising (SCATTERED BRUISING ), Wound (CONTUSION TO FOREHEAD ) Neurological: Weakness, Confusion - Physical Exam Vital Signs: Temperature 98.7 F Pulse Rate [Left Brachial] 63 Pulse Rate [Right Brachial] 71 Pulse Rate 55 Respiratory Rate 20 Blood Pressure [Right Arm] 149/73 Blood Pressure [Left Arm] 153/63 Blood Pressure 180/74 O2 Sat by Pulse Oximetry 98 Oriented: Person Eyes: Normal Ear: Normal Nose: Normal Throat: Normal Respiratory: Diminished Throughout Cardiovascular: Normal. negative: S3, S4, Murmur, Edema : Normal Auscultation: Bowel Sounds: Normal Palpation: Normal Tenderness: Suprapubic, Mild Skin: Normal, Wound (FOREHEAD ), Bruising Musculoskeletal: Normal, Left (LEFT SIDED RIB PAIN ) Psychiatric: Normal Mood Description: Calm Affect: Normal Speech Pattern: Clear - Assessment/Plan (1) Dehydration Status: Acute Plan: NORMAL SALINE AT 75ML/HR (2) Ribs, multiple fractures Qualifiers: Encounter type: subsequent encounter Fracture type: closed Laterality: left Fracture healing: with routine healing Qualified Code(s): S22.42XD - Multiple fractures of ribs, left side, subsequent encounter for fracture with routine healing Status: Acute (3) Urinary tract infection Qualifiers: Urinary tract infection type: acute cystitis Hematuria presence: without hematuria Qualified Code(s): N30.00 - Acute cystitis without hematuria Status: Acute Plan: LEVAQUIN 500MG IV Q48H, DIFLUCAN 100MG PO DAILY (4) Diabetes mellitus type 1, uncontrolled Status: Acute Plan: LEVEMIR 30 UNITS SC BID, HUMULIN R SLIDING SCALE - Allergies Allergies/Adverse Reactions: Allergies Allergy/AdvReac Type Severity Reaction Status Date / Time tuberculin,PPD,multi-puncture Allergy Verified 08/17/18 17:34
[2018-08-22] MEDS ORDERED: NS 500 ML IV 500 ML IV ONE (11:26)
[2018-08-22] MEDS: SNACK - Diabetic Appropriate PO SCH (21:25)
[2018-08-22] MEDS: TRAVOPROST EACHEYE SCH (22:21)
[2018-08-23] MEDS: NS 1000 ML 1,000 ML IV SCH ×3 (02:41→17:28)
[2018-08-23 05:20] LABS: BASOPHILS # (AUTO) 0.1 X10^3/uL (0.0-0.1); EOSINOPHILS # (AUTO) 0.6 x10^3/uL (0.0-0.2); EOSINOPHILS % (AUTO) 4.2 % (0.9-2.9); HEMATOCRIT 32.5 % (36.0-47.0); HEMOGLOBIN 11.2 g/dL (12.0-16.0); LYMPHOCYTES # (AUTO) 3.2 X10^3/uL (1.3-2.9); LYMPHOCYTES % (AUTO) 23.4 % (21.0-51.0); MEAN CORPUSCULAR HEMOGLOBIN 32.1 pg (27.0-34.0); MEAN CORPUSCULAR HGB CONC 34.6 g/dL (33.0-35.0); MEAN PLATELET VOLUME 9.1 fL (7.4-11.0); MONOCYTES # (AUTO) 1.8 x10^3/uL (0.3-0.8); MONOCYTES % (AUTO) 12.9 % (0.0-13.0); NEUTROPHILS # (AUTO) 7.9 x10^3/uL (2.2-4.8); NEUTROPHILS % (AUTO) 58.5 % (42.0-75.0); PLATELET COUNT 282 X10^3/uL (150.0-450.0); WHITE BLOOD COUNT 13.6 X10^3/uL (3.6-10.0)
[2018-08-23 05:27] LABS: ALANINE AMINOTRANSFERASE 36 Units/L (12-78); ALBUMIN 2.2 g/dL (3.4-5.0); ALKALINE PHOSPHATASE 80 Units/L (46-116); ASPARTATE AMINO TRANSFERASE 63 Units/L (15-37); BLOOD UREA NITROGEN 36 mg/dL (7-18); CALCIUM 7.9 mg/dL (8.5-10.1); CARBON DIOXIDE 23.5 mmol/L (21-32); CHLORIDE 98 mmol/L (98-107); COR CA(FOR HYPOALB) 9.3 mg/dL (8.5-10.1); CREATININE 1.66 mg/dL (0.55-1.02); SODIUM 132 mmol/L (136-145); TOTAL PROTEIN 6.1 g/dL (6.4-8.2); eGFR NON BLACK RACES 32 (>60)
[2018-08-23] MEDS: ARTIFICIAL TEARS DROPS OP SCH ×3 (06:07→21:08)
[2018-08-23] MEDS ORDERED: MILK OF MAGNESIA PO PRN (08:16)
--- NOTE | 2018-08-23 08:17 | PCM.PROG ---
Progress Note - Progress Note for Day of Date of Exam: 08/22/18 - Subjective Subjective: WAS ADMITTED ON 08/19/18 FOR DEHYDRATION, UTI, HYPERGLYCEMIA, AND MULTIPLE RIB FRACTURES. SHE HAS RECEIVED IV ANTIBIOTICS, IV FLUIDS, LEVEMIR, AND SLIDING SCALE INSULIN WELL HER REGULAR MEDICATIONS OVER THE WEEKEND. TODAY, SHE IS ALERT AND ORIENTED LYING IN BED ON MORNING ROUN DS. SHE CONTINUES WITH PAIN TO THE LEFT SIDE RIBS AND MILD ABDOMINAL PAIN. ON EXAMINATION, HEART IS REGULAR IN RATE AND RHYTHM. BILATERAL LUNGS ARE NOTED WITH DIMINISHED LUNG SOUNDS THROUGHOUT. ABDOMEN IS ROUND, SOFT, AND NOTED WITH MILD SUPRAPUBIC TENDERNESS. NORMAL BOWEL SOUNDS ARE NOTED IN ALL QUADRANTS. SHE IS NOTED WITH SCATTERED BRUISING. HER VITALS THIS MORNING ARE 98.7-63-20-98%-139/65. LABS WERE OBTAINED. ABNORMAL LAB VALUES INCLUDE THE FOLLOWING: WBC 10.1, RBC 3.24, HGB 10.6, HCT 30.3, SODIUM 126, CHLORIDE 93, BUN 36, CREATININE 1.81, GLUCOSE 360, CALCIUM 7.5, AST 12, TOTAL PROTEIN 5.7, ALBUMIN 2.2. TODAY, WE WILL INCREASE HER LEVEMIR TO 35 UNITS SC BID. OTHERWISE, WE WILL CONTINUE WITH CURRENT PLAN OF CARE. WE PLAN TO FOLLOW UP WITH AM LABS AND CONTINUE TO MONITOR PATIENT. - Past Medical Family Social History Past Med/Fam/Surg Hx: No changes since H&P Allergies: Allergies tuberculin,PPD,multi-puncture Allergy (Verified 08/17/18 17:34) - Review of Systems ROS: No change since H&P - Vital Signs and I&O's Vital Signs: Temperature 98.5 F Pulse Rate [Left Brachial] 75 Pulse Rate [Right Brachial] 71 Pulse Rate 55 Respiratory Rate 20 Blood Pressure [Right Arm] 149/73 Blood Pressure [Left Arm] 148/66 Blood Pressure 180/74 O2 Sat by Pulse Oximetry 98 Intake and Output: Intake & Output 08/20/18 08/21/18 08/22/18 08/23/18 11:59 11:59 11:59 11:59 Intake Total 2796 / 2796 3690 / 3690 3892 / 3892 2396 / 2396 Output Total 30 / 30 3300 / 3300 2450 / 2450 Balance 2766 / 2766 390 / 390 1442 / 1442 2396 / 2396 - Physical Exam Oriented: Normal Eyes: Normal Ear: Normal Nose: Normal Throat: Normal Cardiovascular: Normal. negative: S3, S4, Murmur, Edema : Normal Auscultation: Bowel Sounds: Normal Palpation: Normal Tenderness: Suprapubic, Mild Skin: Normal, Wound (FOREHEAD ), Bruising Musculoskeletal: Normal, Left (LEFT SIDED RIB PAIN ) Psychiatric: Normal Mood Description: Calm Affect: Normal Speech Pattern: Clear, Appropriate - Laboratory and Diagnostics Result Diagrams: 08/23/18 04:32 08/23/18 04:32 Labs: 08/19/18 14:46 Blood Blood Culture - Preliminary 08/19/18 14:37 Blood Blood Culture - Preliminary 08/19/18 18:08 Urine,Clean Catch Urine Culture - Final Laboratory WBC 13.6 X10^3/uL (3.6-10.0) H 08/23/18 04:32 RBC 3.50 X10^6/uL (3.5-5.4) 08/23/18 04:32 Hgb 11.2 g/dL (12.0-16.0) L 08/23/18 04:32 Hct 32.5 % (36.0-47.0) L 08/23/18 04:32 MCV 93.0 fL (80.0-100.0) 08/23/18 04:32 MCH 32.1 pg (27.0-34.0) 08/23/18 04:32 MCHC 34.6 g/dL (33.0-35.0) 08/23/18 04:32 RDW 13.0 % (11.6-16.5) 08/23/18 04:32 Plt Count 282 X10^3/uL (150.0-450.0) 08/23/18 04:32 MPV 9.1 fL (7.4-11.0) 08/23/18 04:32 Neut % (Auto) 58.5 % (42.0-75.0) 08/23/18 04:32 Lymph % (Auto) 23.4 % (21.0-51.0) 08/23/18 04:32 [place] % (Auto) 12.9 % (0.0-13.0) 08/23/18 04:32 Eos % (Auto) 4.2 % (0.9-2.9) H 08/23/18 04:32 Baso % (Auto) 1.0 % (0.2-1.0) 08/23/18 04:32 Neut # (Auto) 7.9 x10^3/uL (2.2-4.8) H 08/23/18 04:32 Lymph # (Auto) 3.2 X10^3/uL (1.3-2.9) H 08/23/18 04:32 [place] # (Auto) 1.8 x10^3/uL (0.3-0.8) H 08/23/18 04:32 Eos # (Auto) 0.6 x10^3/uL (0.0-0.2) H 08/23/18 04:32 Baso # (Auto) 0.1 X10^3/uL (0.0-0.1) 08/23/18 04:32 Absolute Nucleated RBC 0.1 /100WBC 08/23/18 04:32 Sodium 132 mmol/L (136-145) L 08/23/18 04:32 Corrected Sodium TNP 08/23/18 04:32 Potassium 4.1 mmol/L (3.5-5.1) 08/23/18 04:32 Chloride 98 mmol/L (98-107) 08/23/18 04:32 Carbon Dioxide 23.5 mmol/L (21-32) 08/23/18 04:32 BUN 36 mg/dL (7-18) H 08/23/18 04:32 Creatinine 1.66 mg/dL (0.55-1.02) H 08/23/18 04:32 Est GFR (MDRD) Af Amer 38 (>60) L 08/23/18 04:32 Est GFR (MDRD) Non-Af 32 (>60) L 08/23/18 04:32 Glucose 60 mg/dL (65-99) L 08/23/18 04:32 POC Glucose (mg/dL) 55 mg/dL (65-99) L 08/23/18 05:55 Lactic Acid 1.2 mmol/L (0.4-2.0) 08/20/18 05:22 Calcium 7.9 mg/dL (8.5-10.1) L 08/23/18 04:32 Corrected Calcium 9.3 mg/dL (8.5-10.1) 08/23/18 04:32 Total Bilirubin 0.30 mg/dL (0.2-1.0) 08/23/18 04:32 AST 63 Units/L (15-37) H 08/23/18 04:32 ALT 36 Units/L (12-78) 08/23/18 04:32 Alkaline Phosphatase 80 Units/L (46-116) 08/23/18 04:32 Total Protein 6.1 g/dL (6.4-8.2) L 08/23/18 04:32 Albumin 2.2 g/dL (3.4-5.0) L 08/23/18 04:32 Globulin 3.9 g/dL (2.5-4.5) 08/23/18 04:32 Albumin/Globulin Ratio 0.6 Ratio (1.1-2.1) L 08/23/18 04:32 Specimen Type Catherized urine 08/20/18 10:10 Urine Color Yellow (YELLOW) 08/20/18 10:10 Urine Appearance Slightly hazy (CLEAR) 08/20/18 10:10 Urine pH 5.0 (5.0 - 8.0) 08/20/18 10:10 Ur Specific [place] 1.015 (1.000-1.030) 08/20/18 10:10 Urine Protein 2+ (NEGATIVE) 08/20/18 10:10 Urine Glucose (UA) 4+ (NEGATIVE) 08/20/18 10:10 Urine Ketones Negative (NEGATIVE) 08/20/18 10:10 Urine Occult Blood 1+ (NEGATIVE) 08/20/18 10:10 Urine Nitrite Negative (NEGATIVE) 08/20/18 10:10 Urine Bilirubin Negative (NEGATIVE) 08/20/18 10:10 Urine Urobilinogen Normal (NORMAL) 08/20/18 10:10 Ur Leukocyte Esterase 2+ (NEGATIVE) 08/20/18 10:10 Urine RBC 0-2 /HPF (NONE SEEN) 08/20/18 10:10 Urine WBC 10-20 /HPF (NONE SEEN) 08/20/18 10:10 Ur Squamous Epith Cells Rare /HPF (NEGATIVE) 08/20/18 10:10 Amorphous Sediment 2+ /HPF (NEGATIVE) 08/20/18 10:10 Urine Bacteria Trace /HPF (NEGATIVE) 08/20/18 10:10 Urine Yeast Many /HPF (NEGATIVE) 08/19/18 18:08 Urine Sperm TNP 08/19/18 18:08 Ur Culture Indicated? Yes/culture set up 08/20/18 10:10 Digoxin 1.49 ng/mL (0.9-2) 08/19/18 18:19 - Plan (1) Dehydration Status: Acute Plan: NORMAL SALINE AT 75ML/HR (2) Ribs, multiple fractures Status: Acute Qualifiers: Encounter type: subsequent encounter Fracture type: closed Laterality: left Fracture healing: with routine healing Qualified Code(s): S22.42XD - Multiple fractures of ribs, left side, subsequent encounter for fracture with routine healing (3) Urinary tract infection Status: Acute Qualifiers: Urinary tract infection type: acute cystitis Hematuria presence: without hematuria Qualified Code(s): N30.00 - Acute cystitis without hematuria Plan: LEVAQUIN 500MG IV Q48H, DIFLUCAN 100MG PO DAILY (4) Diabetes mellitus type 1, uncontrolled Status: Acute Plan: LEVEMIR 35 UNITS SC BID, HUMULIN R SLIDING SCALE
[2018-08-23] MEDS: CITRACAL + VITAMIN D PO SCH (09:01)
[2018-08-23] MEDS: SYNTHROID 50 mcg TAB PO SCH (09:01)
[2018-08-23] MEDS: ZESTRIL TAB 10 MG PO SCH ×2 (09:01→21:10)
[2018-08-23] MEDS: JANUVIA PO SCH (09:01)
[2018-08-23] MEDS: CALAN SR 180 MG PO SCH (09:01)
[2018-08-23] MEDS: COLACE CAP 100 MG PO SCH ×2 (09:01→21:09)
[2018-08-23] MEDS: ELIQUIS PO SCH ×2 (09:01→21:09)
[2018-08-23] MEDS: MIRALAX POWDER (1 DOSE 17 G) PO SCH (09:02)
[2018-08-23] MEDS: NYSTATIN POWDER TOP SCH ×2 (09:02→21:08)
[2018-08-23] MEDS: LEVEMIR SC SCH ×2 (09:13→21:11)
[2018-08-23] MEDS: NORCO 5/325 MG TAB PO PRN ×2 (09:14→17:02)
[2018-08-23] MEDS: HumuLIN R SC PRN (11:21)
--- NOTE | 2018-08-23 11:26 | PCM.PROG ---
Progress Note - Progress Note for Day of Date of Exam: 08/23/18 - Subjective Subjective: WAS ADMITTED ON 08/19/18 FOR DEHYDRATION, UTI, HYPERGLYCEMIA, AND MULTIPLE RIB FRACTURES. TODAY, SHE IS ALERT AND ORIENTED LYING IN BED ON MORNING ROUNDS. SHE CONTINUES WITH PAIN TO THE LEFT SIDE RIBS AND WEAKNESS. STAFF REPORTS A DROP IN HER BLOOD GLUCOSE LEVELS THIS MORNING. ON EXAMINATION, HEART IS REGULAR IN RATE AND RHYTHM. BILATERAL LUNGS ARE NOTED WITH DIMINISHED LUNG SOUNDS THROUGHOUT. ABDOMEN IS ROUND, SOFT, AND NOTED WITH MILD SUPRAPUBIC TENDERNESS. NORMAL BOWEL SOUNDS ARE NOTED IN ALL QUADRANTS. SHE IS NOTED WITH SCATTERED BRUISING. HER VITALS THIS MORNING ARE 98.5- 75-20-98%-148/66. LABS WERE OBTAINED. ABNORMAL LAB VALUES INCLUDE THE FOLLOWING: WBC 13.6, HGB 11.2, HCT 32.5, SODIUM 132, BUN 36, CREATININE 1.66, GLUCOSE 60, CALCIUM 7.9, AST 63, TOTAL PROTEIN 6.1, ALBUMIN 2.2. TODAY, WE WILL DECREASE HER LEVEMIR TO 32 UNITS SC BID DUE TO HYPOGLYCEMIA. OTHERWISE, WE WILL CONTINUE WITH CURRENT PLAN OF CARE. WE PLAN TO FOLLOW UP WITH AM LABS AND CONTINUE TO MONITOR PATIENT. - Past Medical Family Social History Past Med/Fam/Surg Hx: No changes since H&P Allergies: Allergies tuberculin,PPD,multi-puncture Allergy (Verified 08/17/18 17:34) - Review of Systems ROS: No change since H&P - Vital Signs and I&O's Vital Signs: Temperature 98.5 F Pulse Rate [Left Brachial] 75 Pulse Rate [Right Brachial] 71 Pulse Rate 55 Respiratory Rate 20 Blood Pressure [Right Arm] 149/73 Blood Pressure [Left Arm] 148/66 Blood Pressure 180/74 O2 Sat by Pulse Oximetry 98 Intake and Output: Intake & Output 08/20/18 08/21/18 08/22/18 08/23/18 11:59 11:59 11:59 11:59 Intake Total 2796 / 2796 3690 / 3690 3892 / 3892 2396 / 2396 Output Total 30 / 30 3300 / 3300 2450 / 2450 Balance 2766 / 2766 390 / 390 1442 / 1442 2396 / 2396 - Physical Exam Oriented: Normal Eyes: Normal Ear: Normal Nose: Normal Throat: Normal Respiratory: Generalized, Diminished Cardiovascular: Normal. negative: S3, S4, Murmur, Edema : Normal Auscultation: Bowel Sounds: Normal Palpation: Normal Tenderness: Suprapubic, Mild Skin: Normal, Wound (FOREHEAD ), Bruising Musculoskeletal: Normal, Left (LEFT SIDED RIB PAIN ) Psychiatric: Normal Mood Description: Calm Affect: Normal Speech Pattern: Clear, Appropriate - Laboratory and Diagnostics Result Diagrams: 08/23/18 04:32 08/23/18 04:32 Labs: 08/19/18 14:46 Blood Blood Culture - Preliminary 08/19/18 14:37 Blood Blood Culture - Preliminary 08/19/18 18:08 Urine,Clean Catch Urine Culture - Final Laboratory WBC 13.6 X10^3/uL (3.6-10.0) H 08/23/18 04:32 RBC 3.50 X10^6/uL (3.5-5.4) 08/23/18 04:32 Hgb 11.2 g/dL (12.0-16.0) L 08/23/18 04:32 Hct 32.5 % (36.0-47.0) L 08/23/18 04:32 MCV 93.0 fL (80.0-100.0) 08/23/18 04:32 MCH 32.1 pg (27.0-34.0) 08/23/18 04:32 MCHC 34.6 g/dL (33.0-35.0) 08/23/18 04:32 RDW 13.0 % (11.6-16.5) 08/23/18 04:32 Plt Count 282 X10^3/uL (150.0-450.0) 08/23/18 04:32 MPV 9.1 fL (7.4-11.0) 08/23/18 04:32 Neut % (Auto) 58.5 % (42.0-75.0) 08/23/18 04:32 Lymph % (Auto) 23.4 % (21.0-51.0) 08/23/18 04:32 [place] % (Auto) 12.9 % (0.0-13.0) 08/23/18 04:32 Eos % (Auto) 4.2 % (0.9-2.9) H 08/23/18 04:32 Baso % (Auto) 1.0 % (0.2-1.0) 08/23/18 04:32 Neut # (Auto) 7.9 x10^3/uL (2.2-4.8) H 08/23/18 04:32 Lymph # (Auto) 3.2 X10^3/uL (1.3-2.9) H 08/23/18 04:32 [place] # (Auto) 1.8 x10^3/uL (0.3-0.8) H 08/23/18 04:32 Eos # (Auto) 0.6 x10^3/uL (0.0-0.2) H 08/23/18 04:32 Baso # (Auto) 0.1 X10^3/uL (0.0-0.1) 08/23/18 04:32 Absolute Nucleated RBC 0.1 /100WBC 08/23/18 04:32 Sodium 132 mmol/L (136-145) L 08/23/18 04:32 Corrected Sodium TNP 08/23/18 04:32 Potassium 4.1 mmol/L (3.5-5.1) 08/23/18 04:32 Chloride 98 mmol/L (98-107) 08/23/18 04:32 Carbon Dioxide 23.5 mmol/L (21-32) 08/23/18 04:32 BUN 36 mg/dL (7-18) H 08/23/18 04:32 Creatinine 1.66 mg/dL (0.55-1.02) H 08/23/18 04:32 Est GFR (MDRD) Af Amer 38 (>60) L 08/23/18 04:32 Est GFR (MDRD) Non-Af 32 (>60) L 08/23/18 04:32 Glucose 60 mg/dL (65-99) L 08/23/18 04:32 POC Glucose (mg/dL) 191 mg/dL (65-99) H 08/23/18 11:15 Lactic Acid 1.2 mmol/L (0.4-2.0) 08/20/18 05:22 Calcium 7.9 mg/dL (8.5-10.1) L 08/23/18 04:32 Corrected Calcium 9.3 mg/dL (8.5-10.1) 08/23/18 04:32 Total Bilirubin 0.30 mg/dL (0.2-1.0) 08/23/18 04:32 AST 63 Units/L (15-37) H 08/23/18 04:32 ALT 36 Units/L (12-78) 08/23/18 04:32 Alkaline Phosphatase 80 Units/L (46-116) 08/23/18 04:32 Total Protein 6.1 g/dL (6.4-8.2) L 08/23/18 04:32 Albumin 2.2 g/dL (3.4-5.0) L 08/23/18 04:32 Globulin 3.9 g/dL (2.5-4.5) 08/23/18 04:32 Albumin/Globulin Ratio 0.6 Ratio (1.1-2.1) L 08/23/18 04:32 Specimen Type Catherized urine 08/20/18 10:10 Urine Color Yellow (YELLOW) 08/20/18 10:10 Urine Appearance Slightly hazy (CLEAR) 08/20/18 10:10 Urine pH 5.0 (5.0 - 8.0) 08/20/18 10:10 Ur Specific [place] 1.015 (1.000-1.030) 08/20/18 10:10 Urine Protein 2+ (NEGATIVE) 08/20/18 10:10 Urine Glucose (UA) 4+ (NEGATIVE) 08/20/18 10:10 Urine Ketones Negative (NEGATIVE) 08/20/18 10:10 Urine Occult Blood 1+ (NEGATIVE) 08/20/18 10:10 Urine Nitrite Negative (NEGATIVE) 08/20/18 10:10 Urine Bilirubin Negative (NEGATIVE) 08/20/18 10:10 Urine Urobilinogen Normal (NORMAL) 08/20/18 10:10 Ur Leukocyte Esterase 2+ (NEGATIVE) 08/20/18 10:10 Urine RBC 0-2 /HPF (NONE SEEN) 08/20/18 10:10 Urine WBC 10-20 /HPF (NONE SEEN) 08/20/18 10:10 Ur Squamous Epith Cells Rare /HPF (NEGATIVE) 08/20/18 10:10 Amorphous Sediment 2+ /HPF (NEGATIVE) 08/20/18 10:10 Urine Bacteria Trace /HPF (NEGATIVE) 08/20/18 10:10 Urine Yeast Many /HPF (NEGATIVE) 08/19/18 18:08 Urine Sperm TNP 08/19/18 18:08 Ur Culture Indicated? Yes/culture set up 08/20/18 10:10 Digoxin 1.49 ng/mL (0.9-2) 08/19/18 18:19 - Plan (1) Dehydration Status: Acute Plan: NORMAL SALINE AT 75ML/HR (2) Ribs, multiple fractures Status: Acute Qualifiers: Encounter type: subsequent encounter Fracture type: closed Laterality: l eft Fracture healing: with routine healing Qualified Code(s): S22.42XD - Multiple fractures of ribs, left side, subsequent encounter for fracture with routine healing (3) Urinary tract infection Status: Acute Qualifiers: Urinary tract infection type: acute cystitis Hematuria presence: without hematuria Qualified Code(s): N30.00 - Acute cystitis without hematuria Plan: LEVAQUIN 500MG IV Q48H, DIFLUCAN 100MG PO DAILY (4) Diabetes mellitus type 1, uncontrolled Status: Acute Plan: LEVEMIR 32 UNITS SC BID, HUMULIN R SLIDING SCALE
[2018-08-23] MEDS: LEVAQUIN PREMIX IV 500 MG 500 MG/100 ML BAG IV SCH (14:05)
[2018-08-23] MEDS: TRAVOPROST EACHEYE SCH (21:07)
[2018-08-23] MEDS: SNACK - Diabetic Appropriate PO SCH (21:11)
[2018-08-24 05:17] LABS: BASOPHILS # (AUTO) 0.1 X10^3/uL (0.0-0.1); EOSINOPHILS # (AUTO) 0.3 x10^3/uL (0.0-0.2); EOSINOPHILS % (AUTO) 4.4 % (0.9-2.9); HEMATOCRIT 33.1 % (36.0-47.0); HEMOGLOBIN 11.6 g/dL (12.0-16.0); LYMPHOCYTES # (AUTO) 1.1 X10^3/uL (1.3-2.9); LYMPHOCYTES % (AUTO) 15.4 % (21.0-51.0); MEAN CORPUSCULAR HEMOGLOBIN 32.3 pg (27.0-34.0); MEAN CORPUSCULAR HGB CONC 35.1 g/dL (33.0-35.0); MEAN CORPUSCULAR VOLUME 92.2 fL (80.0-100.0); MEAN PLATELET VOLUME 8.2 fL (7.4-11.0); MONOCYTES % (AUTO) 13.3 % (0.0-13.0); NEUTROPHILS # (AUTO) 4.9 x10^3/uL (2.2-4.8); NEUTROPHILS % (AUTO) 65.9 % (42.0-75.0); PLATELET COUNT 270 X10^3/uL (150.0-450.0); RED BLOOD COUNT 3.59 X10^6/uL (3.5-5.4); RED CELL DISTRIBUTION WIDTH 12.9 % (11.6-16.5); WHITE BLOOD COUNT 7.4 X10^3/uL (3.6-10.0)
[2018-08-24 05:26] LABS: ALANINE AMINOTRANSFERASE 62 Units/L (12-78); ALBUMIN 2.4 g/dL (3.4-5.0); ALKALINE PHOSPHATASE 109 Units/L (46-116); ASPARTATE AMINO TRANSFERASE 104 Units/L (15-37); BLOOD UREA NITROGEN 16 mg/dL (7-18); CALCIUM 8.4 mg/dL (8.5-10.1); CARBON DIOXIDE 27.2 mmol/L (21-32); CHLORIDE 99 mmol/L (98-107); COR CA(FOR HYPOALB) 9.7 mg/dL (8.5-10.1); COR NA(FOR HYPERGLY) 137 mmol/L (136-145); CREATININE 1.05 mg/dL (0.55-1.02); SODIUM 135 mmol/L (136-145); TOTAL PROTEIN 6.5 g/dL (6.4-8.2); eGFR NON BLACK RACES 53 (>60)
[2018-08-24] MEDS: HumuLIN R SC PRN (06:01)
[2018-08-24] MEDS: ARTIFICIAL TEARS DROPS OP SCH (06:02)
[2018-08-24] MEDS: NS 1000 ML 1,000 ML IV SCH (06:02)
[2018-08-24] MEDS: LEVEMIR SC SCH (09:12)
[2018-08-24] MEDS: SYNTHROID 50 mcg TAB PO SCH (09:13)
[2018-08-24] MEDS: CALAN SR 180 MG PO SCH (09:13)
[2018-08-24] MEDS: ZESTRIL TAB 10 MG PO SCH (09:13)
[2018-08-24] MEDS: ELIQUIS PO SCH (09:13)
[2018-08-24] MEDS: JANUVIA PO SCH (09:13)
[2018-08-24] MEDS: COLACE CAP 100 MG PO SCH (09:13)
[2018-08-24] MEDS: CITRACAL + VITAMIN D PO SCH (09:13)
[2018-08-24] MEDS: MIRALAX POWDER (1 DOSE 17 G) PO SCH (09:14)
[2018-08-24] MEDS: NYSTATIN POWDER TOP SCH (09:15)
[2018-08-24] MEDS: NORCO 5/325 MG TAB PO PRN (09:18)
[2018-08-24 09:40] VITALS: BP 161/72
--- NOTE | 2018-09-23 00:05 | DR.CARTERD ---
- Discharge Summary for: Discharge Summary for Date of:: 08/24/18 - Admission Date Date of Admission: 08/19/18 - Admission Diagnoses Admission Diagnosis: (1) Urinary tract infection (2) Dehydration (3) Ribs, multiple fractures (4) Diabetes mellitus type 1, uncontrolled - Discharge Date Discharge Date: 08/24/18 - Discharge Diagnoses Discharge Diagnosis: (1) Urinary tract infection (2) Dehydration (3) Ribs, multiple fractures (4) Diabetes mellitus type 1, uncontrolled - Hospital Course Hospital Course: DAY ONE, IS A 82 YEAR OLD PATIENT OF OURS. SHE IS A RESIDENT OF [facility]. WAS A DIRECT ADMISSION FROM THE INTERMEDIATE DUE TO MULTIPLE RIB FRACTURES, A CONTUSION TO THE FOREHEAD, AND MULTIPLE BRUISING FOLLOWING A FALL TWO DAYS AGO. HER BLOOD SUGAR HAD ALSO BEEN ELEVATED. A RIB SERIES WAS OBTAINED ON 08/18/18 WHICH REVEALED: Prominent skin fold on the left causing the appearance of a pneumothorax. I see no definite evidence of a pneumothorax however on any of the images. Findings of nondisplaced fractures involving the left 5th rib and 8th rib with equivocal fractures involving posterior ribs inferiorly on the left. Clinical correlation is recommended. Please note that costal cartilage separation and chondral fractures may not be seen by plain film radiographs. ON TODAYS ADMISSION, SHE WAS NOTED WITH ALTERED MENTAL STATUS. HER VITALS ON ARRIVAL WERE 98.3-62-18-95%-125/60. LABS WERE OBTAINED. ABNORMAL LAB VALUES INCLUDED THE FOLLOWING: WBC 14.4, HGB 11.5, HCT 32.4, SODIUM 124, CHLORIDE 89, BUN 41, CREATININE 2.83, GLUCOSE 635, AST 11, ALBUMIN 3.1. URINALYSIS REVEALED WBC TNTC , RBC 0-2, LEUKOCYTES 3+, BACTERIA 2+, YEAST MANY. A CHEST XRAY WAS OBTAINED AND REVEALED: Normal heart size with essentially clear lungs and pleural spaces. There is no evidence for pneumothorax or pleural fluid. There is a nonacute compression deformity in the mid thoracic spine. EKG REVEALED JUNCTIONAL RHYTHM WITH HR 52. SHE WAS STARTED ON NORMAL SALINE AT 75ML/HR, LEVAQUIN 500MG IV Q48H, AND DIFLUCAN 100MG PO DAILY FOR DEHYDRATION AND A URINARY TRACT INFECTION. WE RESUMED HOME MEDICATIONS AND STARTED HUMULIN R SLIDING SCALE WITH OTBS ACHS. WE FOLLOWED UP WITH AM LABS AND CONTINUED TO MONITOR. DAY TWO, Mrs. Goodman was doing well. Her sugars were b elyse after treatment with insulin. Her BUN and creatine indicated acute renal failure secondary to dehydration. She received a 500 mL bolus of normal saline as her creatine was 2.8, up from a baseline of 1.05. Her BUN was 41 and her baseline on 08/09/18, was 13. We followed up with a comprehensive metabolic panel in the morning and make further plans based on her BUN and creatine. On exam, she had evidence of a vaginal yeast infection, we started Diflucan by mouth. We continued Levaquin for what appears to be a urinary tract infection. we continued to monitor patient. Day three, Mrs. Goodman was doing better. She was more alert and talkative today. Her sodium was up 6 points to 126. Her sugars were running in the 300s but that was because we had not added her Levemir, so I added that. We continued to follow her with sliding scales today. Her white count was down and so was her creatine. she received another 500 mL normal saline bolus and we followed up in the am with repeat laboratory testing. we continued to monitor patient. DAY FOUR, SHE WAS ALERT AND ORIENTED LYING IN BED ON MORNING ROUNDS. SHE CONTINUED WITH PAIN TO THE LEFT SIDE RIBS AND MILD ABDOMINAL PAIN. ON EXAMINATION, HEART WAS REGULAR IN RATE AND RHYTHM. BILATERAL LUNGS WERE NOTED WITH DIMINISHED LUNG SOUNDS THROUGHOUT. ABDOMEN WAS ROUND, SOFT, AND NOTED WITH MILD SUPRAPUBIC TENDERNESS. NORMAL BOWEL SOUNDS WERE NOTED IN ALL QUADRANTS. SHE WAS NOTED WITH SCATTERED BRUISING. HER VITALS THIS MORNING WERE 98.7-63-20-98%-139/65. LABS WERE OBTAINED. ABNORMAL LAB VALUES INCLUDED THE FOLLOWING: WBC 10.1, RBC 3.24, HGB 10.6, HCT 30.3, SODIUM 126, CHLORIDE 93, BUN 36, CREATININE 1.81, GLUCOSE 360, CALCIUM 7.5, AST 12, TOTAL PROTEIN 5.7, ALBUMIN 2.2. WE INCREASED HER LEVEMIR TO 35 UNITS SC BID. WE CONTINUED WITH CURRENT PLAN OF CARE. WE FOLLOWED UP WITH AM LABS AND CONTINUED TO MONITOR PATIENT. DAY FIVE, SHE CONTINUED WITH PAIN TO THE LEFT SIDE RIBS AND WEAKNESS. STAFF REPORTED A DROP IN HER BLOOD GLUCOSE LEVELS THIS MORNING. ON EXAMINATION, HEART WAS REGULAR IN RATE AND RHYTHM. BILATERAL LUNGS WERE NOTED WITH DIMINISHED LUNG SOUNDS THROUGHOUT. ABDOMEN WAS ROUND, SOFT, AND NOTED WITH MILD SUPRAPUBIC TENDERNESS. NORMAL BOWEL SOUNDS WERE NOTED IN ALL QUADRANTS. SHE WAS NOTED WITH SCATTERED BRUISING. HER VITALS THIS MORNING WERE 98.5-75-20-98%-148/66. LABS WERE OBTAINED. ABNORMAL LAB VALUES INCLUDED THE FOLLOWING: WBC 13.6, HGB 11.2, HCT 32.5, SODIUM 132, BUN 36, CREATININE 1.66, GLUCOSE 60, CALCIUM 7.9, AST 63, TOTAL PROTEIN 6.1, ALBUMIN 2.2. WE DECREASED HER LEVEMIR TO 32 UNITS SC BID DUE TO HYPOGLYCEMIA. WE CONTINUED WITH CURRENT PLAN OF CARE. WE FOLLOWED UP WITH AM LABS AND CONTINUED TO MONITOR PATIENT. DAY SIX, PATIENT LYING IN BED ALERT AND ORIENTED THIS AM. SHE CONTINUED TO VOICE COMPLAINTS OF PAIN TO LEFT SIDE RIBS. SHE HAD BEEN RECEIVING NORCO FOR THE PAIN AND IT HAS BEEN HELPING CONTROL THE PAIN. HER SODIUM LEVEL WAS UP FROM 120 TO 135. HER CREATININE HAS DECREASED FROM 2.81 TO 1.05. BUN WAS NORMAL. ALL OTHER LABS WERE IN NORMAL RANGE FOR PATIENT. VITAL SIGNS WERE STABLE. WE PLANNED FOR DISCHARGE. INSTRUCTIONS FOR MEDICATIONS WERE DISCUSSED WITH PATIENT, FAMILY, AND NURSING STAFF AT [facility], ALL VOICED UNDERSTANDING. PATIENT WAS DISCHARGED BACK TO [facility] WITH [facility] STAFF. - Discharge Medications Discharge Medications: Home Medication List Hemocyte-Plus 1 cap PO QDAY 08/19/18 [History] fenofibrate 54 mg PO DAILY 08/19/18 [History] hydralazine 100 mg PO QID 08/19/18 [History] pantoprazole [Protonix] 40 mg PO QDAY 08/19/18 [History] polyvinyl alcohol [Artificial Tears (polyvin alc)] 1 drp OPHTHALMIC (EYE) TID 08/19/18 [History] tramadol 50 mg PO Q6H PRN 08/19/18 [History] insulin detemir U-100 [Levemir U-100 Insulin] 32 units SC BID ml 08/24/18 [Rx] lanolin [Lantiseptic Skin Protectant] 1 applic TOP QID PRN g 08/24/18 [Rx] levofloxacin 250 mg PO QDAY #7 tab 08/24/18 [Rx] nystatin [Nyamyc] 1 applic TOP BID g 08/24/18 [Rx] Prescriptions: levofloxacin [facility] docusate sodium 100 mg PO BID 11/01/12 levothyroxine [Levo-T] 50 mcg PO DAILY 11/01/12 Travoprost [Travatan Z (ophth) 0.004 % 5 mL] 1 drp EACHEYE HS 07/19/13 atorvastatin [Lipitor] 20 mg PO HS 07/19/13 calcium citrate-vitamin D3 [Payne Calcium] 1 tab PO DAILY 07/19/13 simethicone [Mi-Acid Gas Relief] 80 mg PO BID 07/07/14 polyethylene glycol 3350 [Miralax] 17 g PO DAILY 06/06/15 sitagliptin [Januvia] 100 mg PO DAILY 06/06/15 cholestyramine (with sugar) [Questran] 4 gm PO DAILY #378 grams 05/15/16 lisinopril [Zestril] 30 mg PO BID 12/16/17 ascorbic acid (vitamin C) [Vitamin C] 500 mg PO BID 02/05/18 hydrocodone-acetaminophen 1 tab PO Q6H PRN 02/05/18 multivitamin [Daily Multi-Vitamin] 1 tab PO DAILY 02/05/18 apixaban [Eliquis] 2.5 mg PO BID #60 tab 02/15/18 verapamil 360 mg PO DAILY tab 02/15/18 clonidine 1 ea TD Q7D #4 tdsy 08/19/18 digoxin 0.125 mg PO DAILY #30 tab 08/19/18 nitroglycerin 1 ea TD DAILY #30 patch 08/19/18 - Discharge Disposition Discharge Disposition: WE WILL FOLLOW UP WITH PATIENT IN ONE WEEK AT THE INTERMEDIATE.
== END 2018-08-24 11:40 | DRG 641 ==
LOC: MED/SURG 14:20
PROVIDERS: ADMIT Internal Medicine; ATTEND Internal Medicine
CPT/HCPCS: 36415; 71020; 71046; 80053; 80162; 81001; 82947; 83605; 85025; 87040; 87086; 93005; 94760; 97110; 97163; 97167; 97530; 97535; A4222; J1815; J1956; J2270; J7030; J7040

== ENCOUNTER 2019-04-10 18:33 | Inpatient (IN) ==
[2019-04-10] MEDS: NS 1000 ML 1,000 ML IV SCH (21:45)
[2019-04-11 06:14] LABS: EOSINOPHILS # (AUTO) 0.1 x10^3/uL (0.0-0.2); LYMPHOCYTES # (AUTO) 0.8 X10^3/uL (1.3-2.9); MONOCYTES # (AUTO) 0.9 x10^3/uL (0.3-0.8); NEUTROPHILS # (AUTO) 2.9 x10^3/uL (2.2-4.8); WHITE BLOOD COUNT 4.7 X10^3/uL (3.6-10.0)
[2019-04-11 06:29] LABS: BASOPHILS % (AUTO) 0.1 % (0.2-1.0); EOSINOPHILS % (AUTO) 2.1 % (0.9-2.9); HEMATOCRIT 37.7 % (36.0-47.0); HEMOGLOBIN 13.7 g/dL (12.0-16.0); LYMPHOCYTES % (AUTO) 16.6 % (21.0-51.0); MEAN CORPUSCULAR HEMOGLOBIN 33.1 pg (27.0-34.0); MEAN CORPUSCULAR HGB CONC 36.5 g/dL (33.0-35.0); MEAN CORPUSCULAR VOLUME 90.8 fL (80.0-100.0); MEAN PLATELET VOLUME 6.8 fL (7.4-11.0); MONOCYTES % (AUTO) 18.3 % (0.0-13.0); NEUTROPHILS % (AUTO) 62.9 % (42.0-75.0); PLATELET COUNT 270 X10^3/uL (150.0-450.0); RED BLOOD COUNT 4.15 X10^6/uL (3.5-5.4); RED CELL DISTRIBUTION WIDTH 13.7 % (11.6-16.5)
[2019-04-11 06:31] LABS: ALANINE AMINOTRANSFERASE 34 Units/L (12-78); ALBUMIN 3.6 g/dL (3.4-5.0); ALKALINE PHOSPHATASE 76 Units/L (46-116); ASPARTATE AMINO TRANSFERASE 22 Units/L (15-37); BLOOD UREA NITROGEN 7 mg/dL (7-18); CALCIUM 9.6 mg/dL (8.5-10.1); CARBON DIOXIDE 27.5 mmol/L (21-32); CHLORIDE 98 mmol/L (98-107); COR NA(FOR HYPERGLY) 138 mmol/L (136-145); CREATININE 0.94 mg/dL (0.55-1.02); SODIUM 135 mmol/L (136-145); eGFR NON BLACK RACES > 60 (>60)
[2019-04-11 08:14] VITALS: BMI 24.1
[2019-04-11] MEDS ORDERED: MIRALAX POWDER (1 DOSE 17 G) PO PRN (08:29)
[2019-04-11] MEDS ORDERED: LANTISEPTIC TOP PRN (08:29)
[2019-04-11] MEDS ORDERED: ULTRAM PO PRN (08:29)
[2019-04-11] MEDS ORDERED: CATAPRES-TTS-3 TD SCH (09:00)
[2019-04-11] MEDS ORDERED: LEVEMIR SC SCH (09:00)
[2019-04-11] MEDS ORDERED: ASCORBIC ACID 500 MG PO SCH (09:00)
[2019-04-11] MEDS: COLACE CAP 100 MG PO SCH ×2 (09:30→20:40)
[2019-04-11] MEDS: LANOXIN PO SCH (09:30)
[2019-04-11] MEDS: TAB-A-VITE PO SCH (09:30)
[2019-04-11] MEDS: QUESTRAN POWDER FOR ORAL SUSP PO SCH (09:30)
[2019-04-11] MEDS: PROTONIX TAB 40 MG PO SCH (09:31)
[2019-04-11] MEDS: CALAN SR 180 MG PO SCH (09:31)
[2019-04-11] MEDS: MYLICON TAB 80 MG CHEW PO SCH ×2 (09:31→20:40)
[2019-04-11] MEDS: ZESTRIL TAB 10 MG PO SCH ×2 (09:31→20:40)
[2019-04-11] MEDS: SYNTHROID 50 mcg TAB PO SCH (09:31)
[2019-04-11] MEDS: APRESOLINE TAB 25 MG PO SCH ×4 (09:31→20:41)
[2019-04-11] MEDS: JANUVIA PO SCH (09:31)
[2019-04-11] MEDS: CITRACAL + VITAMIN D PO SCH (09:32)
[2019-04-11] MEDS: HEMOCYTE-PLUS PO SCH ×2 (09:32→17:15)
[2019-04-11] MEDS: ELIQUIS PO SCH ×2 (09:32→20:41)
[2019-04-11] MEDS: ARTIFICIAL TEARS DROPS OP SCH ×3 (11:17→21:51)
[2019-04-11] MEDS: NS 1000 ML 1,000 ML IV SCH ×2 (12:30→23:42)
[2019-04-11] MEDS: TEMOVATE CREAM EXT SCH ×2 (17:04→20:49)
[2019-04-11] MEDS: HumuLIN R SUBCUT PRN (17:16)
--- NOTE | 2019-04-11 19:54 | DR.H&P ---
H&P - History & Physical for Day of: H&P Date: 04/10/19 - Chief Complaint Chief Complaint: HYPONATREMIA - History of Present Illness History of Present Illness: IS A 83 YEAR OLD PATIENT OF OURS WHO IS A RESIDENT OF [facility]. SHE WAS ADMITTED TO THE HOSPITAL DUE TO A CRITICAL LOW SODIUM LEVEL OF 125 THAT WAS REVEALED ON ROUTINE LABS. PAST MEDICAL HISTORY INCLUDES: CAD, HTN, SLEEP APNEA, GERD, FREQUENT UTIs, CHRONIC BACK PAIN, AND TYPE 2 DIABETES. ON ARRIVAL TO THE HOSPITAL, PATIENT REPORTED GENERALIZED WEAKNESS. VITALS WERE 98.1-58-18-93%-192/75. SHE WAS ADMITTED FOR HYPONATREMIA AND STARTED ON NORMAL SALINE AT 80ML/HR. WE WILL RESUMED MEDICATIONS AND FOLLOW- UP WITH AM LABS. - Past Medical History Past Medical History: Coronary Artery Disease, Hypertension, Dyslipidemia, Diabetes, Depression, Hypothyroidism, Anemia, CVA, Asthma, GERD, Arthritis, CHF Additional Medical History: DVT, Sleep Apnea, Depression, Chronic Sinusitis, Allergic Rhinitis, Constipation, Edema, UTI's, Pneumonia, Arthritis, Cataracts, Osteoporosis, Glaucoma, Ear Infections, Gastrointestinal Ulcer, Cardiac Arrhythmia, Muscle Weakness, Osteoporsis, Restless leg syndrome - Past Surgical History Surgical History: Angioplasty/Stents, MUSIC ARRANGER Surgery Additional Surgical History: Sinus surgery - Family History Family Medical History: Diabetes Mellitus, [place], Coronary Artery Disease, Sudden Cardiac - Social History Alcohol Use: None Drug Use: None Prescription drug monitoring program results: PDMP reviewed and no concerns identified - Medications Home Medications: tuberculin,PPD,multi-puncture Allergy (Verified 08/17/18 17:34) CONTINUE taking the following medications clonidine [[id number]] 1 ea TD Q7D 04/11/19 [History] digoxin [Lanoxin] 0.125 mg PO DAILY 04/11/19 [History] insulin detemir U-100 [Levemir U-100 Insulin] 25 units SC QHS 04/11/19 [History] insulin detemir U-100 [Levemir U-100 Insulin] 28 units SUBCUT DAILY 04/11/19 [History] verapamil [Calan SR] 360 mg PO DAILY 04/11/19 [History] - Review of Systems Constitutional: Weakness Eyes: No Symptoms Reported ENT: No Symptoms Reported Respiratory: No Symptoms Reported Cardiovascular: No Symptoms Reported Gastrointestinal: No Symptoms Reported Genitourinary: No Symptoms Reported Musculoskeletal: No Symptoms Reported Skin: No Symptoms Reported Neurological: Weakness - Physical Exam Vital Signs: Temperature 98.7 F Pulse Rate [Right Brachial] 63 Pulse Rate 66 Respiratory Rate 18 Blood Pressure [Right Arm] 129/59 Blood Pressure [Left Arm] 161/72 Blood Pressure 161/72 O2 Sat by Pulse Oximetry 97 Oriented: Normal Eyes: Normal Ear: Normal Nose: Normal Throat: Normal Respiratory: Diminished Throughout Cardiovascular: Bradycardia. negative: S3, S4, Murmur : Normal Auscultation: Bowel Sounds: Normal Palpation: Normal Tenderness: Normal Skin: Wound (SCABBED OVER WOUNDS TO LEFT UPPER CHEST ) Musculoskeletal: Normal Psychiatric: Normal Affect: Normal Speech Pattern: Clear - Assessment/Plan (1) Hyponatremia Status: Acute Plan: NORMAL SALINE AT 80ML/HR, CONTINUE TO MONITOR - Allergies Allergies/Adverse Reactions: Allergies Allergy/AdvReac Type Severity Reaction Status Date / Time tuberculin,PPD,multi-puncture Allergy Verified 08/17/18 17:34
[2019-04-11] MEDS ORDERED: SNACK - Diabetic Appropriate PO SCH (20:00)
[2019-04-11] MEDS: SNACK - Diabetic Appropriate PO SCH (20:40)
[2019-04-11] MEDS: LIPITOR TAB 20 MG PO SCH (20:41)
[2019-04-11] MEDS: LEVEMIR SC SCH (20:42)
[2019-04-11] MEDS: TRAVATAN Z AFFEYE SCH (20:43)
[2019-04-11] MEDS ORDERED: TRAVOPROST EACHEYE SCH (21:00)
[2019-04-12 05:19] LABS: BASOPHILS # (AUTO) 0.1 X10^3/uL (0.0-0.1); EOSINOPHILS # (AUTO) 0.3 x10^3/uL (0.0-0.2); EOSINOPHILS % (AUTO) 3.2 % (0.9-2.9); HEMATOCRIT 40.8 % (36.0-47.0); HEMOGLOBIN 14.2 g/dL (12.0-16.0); LYMPHOCYTES % (AUTO) 24.9 % (21.0-51.0); MEAN CORPUSCULAR HEMOGLOBIN 32.4 pg (27.0-34.0); MEAN CORPUSCULAR HGB CONC 34.9 g/dL (33.0-35.0); MEAN CORPUSCULAR VOLUME 92.8 fL (80.0-100.0); MEAN PLATELET VOLUME 6.9 fL (7.4-11.0); MONOCYTES # (AUTO) 1.1 x10^3/uL (0.3-0.8); MONOCYTES % (AUTO) 13.8 % (0.0-13.0); NEUTROPHILS # (AUTO) 4.7 x10^3/uL (2.2-4.8); NEUTROPHILS % (AUTO) 57.1 % (42.0-75.0); PLATELET COUNT 335 X10^3/uL (150.0-450.0); RED CELL DISTRIBUTION WIDTH 13.7 % (11.6-16.5); WHITE BLOOD COUNT 8.1 X10^3/uL (3.6-10.0)
[2019-04-12] MEDS: ARTIFICIAL TEARS DROPS OP SCH ×3 (05:32→21:00)
[2019-04-12 05:41] LABS: ALANINE AMINOTRANSFERASE 29 Units/L (12-78); ALBUMIN 3.7 g/dL (3.4-5.0); ALKALINE PHOSPHATASE 74 Units/L (46-116); ASPARTATE AMINO TRANSFERASE 19 Units/L (15-37); BLOOD UREA NITROGEN 13 mg/dL (7-18); CALCIUM 9.5 mg/dL (8.5-10.1); CHLORIDE 95 mmol/L (98-107); COR NA(FOR HYPERGLY) 132 mmol/L (136-145); CREATININE 1.25 mg/dL (0.55-1.02); SODIUM 131 mmol/L (136-145); TOTAL PROTEIN 7.2 g/dL (6.4-8.2); eGFR NON BLACK RACES 44 (>60)
[2019-04-12] MEDS: APRESOLINE TAB 25 MG PO SCH ×4 (09:17→20:55)
[2019-04-12] MEDS: COLACE CAP 100 MG PO SCH ×2 (09:18→20:57)
[2019-04-12] MEDS: ELIQUIS PO SCH ×2 (09:18→20:56)
[2019-04-12] MEDS: SYNTHROID 50 mcg TAB PO SCH (09:18)
[2019-04-12] MEDS: HEMOCYTE-PLUS PO SCH (09:18)
[2019-04-12] MEDS: JANUVIA PO SCH (09:18)
[2019-04-12] MEDS: LANOXIN PO SCH (09:19)
[2019-04-12] MEDS: MYLICON TAB 80 MG CHEW PO SCH ×2 (09:19→20:56)
[2019-04-12] MEDS: ZESTRIL TAB 10 MG PO SCH ×2 (09:22→20:56)
[2019-04-12] MEDS: CITRACAL + VITAMIN D PO SCH (09:22)
[2019-04-12] MEDS: PROTONIX TAB 40 MG PO SCH (09:22)
[2019-04-12] MEDS: TAB-A-VITE PO SCH (09:22)
[2019-04-12] MEDS: CALAN SR 180 MG PO SCH (09:22)
[2019-04-12] MEDS: QUESTRAN POWDER FOR ORAL SUSP PO SCH (09:23)
[2019-04-12] MEDS: TEMOVATE CREAM EXT SCH ×2 (09:23→21:00)
--- NOTE | 2019-04-12 11:37 | RAD ---
History: Right shoulder pain Study: Three views of the right shoulder Findings: There are mild osteophytes about the AC joint. There is no fracture or dislocation. The glenohumeral joint appears unremarkable. The scapula is intact. Impression: AC joint osteoarthritis Reported By:
[2019-04-12] MEDS: NS 1000 ML 1,000 ML IV SCH (17:14)
[2019-04-12] MEDS: SNACK - Diabetic Appropriate PO SCH (20:53)
[2019-04-12] MEDS: LIPITOR TAB 20 MG PO SCH (20:56)
[2019-04-12] MEDS: TRAVATAN Z AFFEYE SCH (20:56)
[2019-04-12] MEDS: LEVEMIR SC SCH (20:58)
[2019-04-12] MEDS: HumuLIN R SUBCUT PRN (20:58)
--- NOTE | 2019-04-12 21:51 | PCM.PROG ---
Progress Note - Progress Note for Day of Date of Exam: 04/11/19 - Subjective Subjective: WAS ADMITTED TO THE HOSPITAL FOR HYPONATREMIA. TODAY, SHE IS ALERT AND ORIENTED, LYING IN BED ON MORNING ROUNDS. SHE CONTINUES WITH WEAKNESS TODAY. SHE ALSO REPORTS ITCHING TO THE CHEST AREA. ON EXAMINATION, HEART IS REGULAR IN RATE AND RHYTHM. BILATERAL LUNGS ARE NOTED WITH DIMINISHED LUNG SOUNDS THROUGHOUT. ABDOMEN IS ROUND, SOFT, AND NON-TENDER WITH NORMAL BOWEL SOUNDS NOTED IN ALL QUADRANTS. THERE ARE SCABS TO THE LEFT UPPER CHEST THAT PATIENT APPEARS TO HAVE BEEN SCRATCHING AT. HER VITALS THIS MORNING ARE: 98.2-66-18-95%-188/80. LABS WERE OBTAINED. ABNORMAL LAB VALUES INCLUDE THE FOLLOWING: SODIUM 135, GLUCOSE 214. SHE IS CURRENTLY RECEIVING NORMAL SALINE AT 80ML/HR. TODAY, WE WILL START TEMOVATE CREAM. OTHERWISE, WE WILL CONTINUE WITH CURRENT PLAN OF CARE. WE PLAN TO FOLLOW-UP WITH AM LABS AND CONTINUE TO MONITOR. - Past Medical Family Social History Past Med/Fam/Surg Hx: No changes since H&P Allergies: Allergies tuberculin,PPD,multi-puncture Allergy (Verified 08/17/18 17:34) - Review of Systems ROS: No change since H&P - Vital Signs and I&O's Vital Signs: Temperature 98.4 F Pulse Rate [Right Brachial] 49 Pulse Rate 72 Respiratory Rate 20 Blood Pressure [Right Arm] 136/60 Blood Pressure [Left Arm] 161/72 Blood Pressure 161/72 O2 Sat by Pulse Oximetry 98 Intake and Output: Intake & Output 04/10/19 04/11/19 04/12/19 04/13/19 11:59 11:59 11:59 11:59 Intake Total 1100 / 1100 1560 / 1560 480 / 480 Balance 1100 / 1100 1560 / 1560 480 / 480 - Physical Exam Oriented: Normal Eyes: Normal Ear: Normal Nose: Normal Throat: Normal Respiratory: Normal Cardiovascular: Bradycardia. negative: S3, S4, Murmur : Normal Auscultation: Bowel Sounds: Normal Palpation: Normal Tenderness: Normal Skin: Wound (SCABBED OVER WOUNDS TO LEFT UPPER CHEST ) Musculoskeletal: Normal Psychiatric: Normal Affect: Normal Speech Pattern: Clear, Appropriate - Laboratory and Diagnostics Result Diagrams: 04/12/19 04:51 04/12/19 04:51 Labs: Laboratory WBC 8.1 X10^3/uL (3.6-10.0) 04/12/19 04:51 RBC 4.40 X10^6/uL (3.5-5.4) 04/12/19 04:51 Hgb 14.2 g/dL (12.0-16.0) 04/12/19 04:51 Hct 40.8 % (36.0-47.0) 04/12/19 04:51 MCV 92.8 fL (80.0-100.0) 04/12/19 04:51 MCH 32.4 pg (27.0-34.0) 04/12/19 04:51 MCHC 34.9 g/dL (33.0-35.0) 04/12/19 04:51 RDW 13.7 % (11.6-16.5) 04/12/19 04:51 Plt Count 335 X10^3/uL (150.0-450.0) 04/12/19 04:51 MPV 6.9 fL (7.4-11.0) L 04/12/19 04:51 Neut % (Auto) 57.1 % (42.0-75.0) 04/12/19 04:51 Lymph % (Auto) 24.9 % (21.0-51.0) 04/12/19 04:51 Bosque % (Auto) 13.8 % (0.0-13.0) H 04/12/19 04:51 Eos % (Auto) 3.2 % (0.9-2.9) H 04/12/19 04:51 Baso % (Auto) 1.0 % (0.2-1.0) 04/12/19 04:51 Neut # (Auto) 4.7 x10^3/uL (2.2-4.8) 04/12/19 04:51 Lymph # (Auto) 2.0 X10^3/uL (1.3-2.9) 04/12/19 04:51 [place] # (Auto) 1.1 x10^3/uL (0.3-0.8) H 04/12/19 04:51 Eos # (Auto) 0.3 x10^3/uL (0.0-0.2) H 04/12/19 04:51 Baso # (Auto) 0.1 X10^3/uL (0.0-0.1) 04/12/19 04:51 Absolute Nucleated RBC 0.0 /100WBC 04/12/19 04:51 Sodium 131 mmol/L (136-145) L 04/12/19 04:51 Corrected Sodium 132 mmol/L (136-145) L 04/12/19 04:51 Potassium 3.8 mmol/L (3.5-5.1) 04/12/19 04:51 Chloride 95 mmol/L (98-107) L 04/12/19 04:51 Carbon Dioxide 29.0 mmol/L (21-32) 04/12/19 04:51 BUN 13 mg/dL (7-18) 04/12/19 04:51 Creatinine 1.25 mg/dL (0.55-1.02) H 04/12/19 04:51 Est GFR (MDRD) Af Amer 53 (>60) L 04/12/19 04:51 Est GFR (MDRD) Non-Af 44 (>60) L 04/12/19 04:51 Glucose 133 mg/dL (65-99) H 04/12/19 04:51 POC Glucose (mg/dL) 221 mg/dL (65-99) H 04/12/19 20:04 Calcium 9.5 mg/dL (8.5-10.1) 04/12/19 04:51 Corrected Calcium TNP 04/12/19 04:51 Magnesium 1.8 mg/dL (1.7-2.9) 04/11/19 05:48 Total Bilirubin 0.60 mg/dL (0.2-1.0) 04/12/19 04:51 AST 19 Units/L (15-37) 04/12/19 04:51 ALT 29 Units/L (12-78) 04/12/19 04:51 Alkaline Phosphatase 74 Units/L (46-116) 04/12/19 04:51 Total Protein 7.2 g/dL (6.4-8.2) 04/12/19 04:51 Albumin 3.7 g/dL (3.4-5.0) 04/12/19 04:51 Globulin 3.5 g/dL (2.5-4.5) 04/12/19 04:51 Albumin/Globulin Ratio 1.1 Ratio (1.1-2.1) 04/12/19 04:51 Digoxin 1.28 ng/mL (0.9-2) 04/11/19 10:50 - Plan (1) Hyponatremia Status: Acute Plan: NORMAL SALINE AT 80ML/HR, CONTINUE TO MONITOR
[2019-04-13 05:12] LABS: BASOPHILS % (AUTO) 0.7 % (0.2-1.0); EOSINOPHILS # (AUTO) 0.3 x10^3/uL (0.0-0.2); EOSINOPHILS % (AUTO) 4.9 % (0.9-2.9); HEMATOCRIT 32.7 % (36.0-47.0); LYMPHOCYTES # (AUTO) 1.2 X10^3/uL (1.3-2.9); LYMPHOCYTES % (AUTO) 19.4 % (21.0-51.0); MEAN CORPUSCULAR HEMOGLOBIN 32.9 pg (27.0-34.0); MEAN CORPUSCULAR HGB CONC 36.1 g/dL (33.0-35.0); MEAN CORPUSCULAR VOLUME 91.1 fL (80.0-100.0); MEAN PLATELET VOLUME 6.7 fL (7.4-11.0); MONOCYTES # (AUTO) 0.8 x10^3/uL (0.3-0.8); MONOCYTES % (AUTO) 13.6 % (0.0-13.0); NEUTROPHILS # (AUTO) 3.7 x10^3/uL (2.2-4.8); NEUTROPHILS % (AUTO) 61.4 % (42.0-75.0); PLATELET COUNT 253 X10^3/uL (150.0-450.0); RED BLOOD COUNT 3.59 X10^6/uL (3.5-5.4); RED CELL DISTRIBUTION WIDTH 13.5 % (11.6-16.5)
[2019-04-13 05:21] LABS: ALANINE AMINOTRANSFERASE 21 Units/L (12-78); ALBUMIN 2.8 g/dL (3.4-5.0); ALKALINE PHOSPHATASE 59 Units/L (46-116); ASPARTATE AMINO TRANSFERASE 13 Units/L (15-37); BLOOD UREA NITROGEN 11 mg/dL (7-18); CALCIUM 8.1 mg/dL (8.5-10.1); CHLORIDE 98 mmol/L (98-107); COR CA(FOR HYPOALB) 9.1 mg/dL (8.5-10.1); COR NA(FOR HYPERGLY) 132 mmol/L (136-145); CREATININE 0.89 mg/dL (0.55-1.02); SODIUM 130 mmol/L (136-145); TOTAL PROTEIN 5.6 g/dL (6.4-8.2); eGFR NON BLACK RACES > 60 (>60)
[2019-04-13] MEDS: NS 1000 ML 1,000 ML IV SCH ×3 (05:31→16:19)
[2019-04-13] MEDS: ARTIFICIAL TEARS DROPS OP SCH ×3 (05:31→21:15)
[2019-04-13 05:42] LABS: HEMOGLOBIN 11.8 g/dL (12.0-16.0)
[2019-04-13] MEDS ORDERED: POTASSIUM CHL 60 MEQ/NS 0.45% 500 ML IV PRN (06:07)
[2019-04-13] MEDS ORDERED: POTASSIUM CHL 40 MEQ/NS 0.45% 500 ML IV PRN (06:07)
[2019-04-13] MEDS ORDERED: K-RIDER 10 MEQ/NS 100 ML 10 MEQ/100 ML BAG IV PRN (06:07)
[2019-04-13] MEDS ORDERED: K-DUR TAB 20 MEQ PO PRN (06:07)
[2019-04-13] MEDS ORDERED: POTASSIUM CHLORIDE LIQ 20 MEQ UDC PO PRN (06:07)
[2019-04-13] MEDS ORDERED: KLOR-CON PO PRN (06:07)
[2019-04-13] MEDS ORDERED: MICRO K EXTEN CAP 10 MEQ PO PRN (06:07)
[2019-04-13] MEDS: CITRACAL + VITAMIN D PO SCH (08:28)
[2019-04-13] MEDS: MAGNESIUM SULFATE 1 GRAM/100 mL PREMIX 1 GM/100 ML BAG IV PRN ×2 (08:29→12:01)
[2019-04-13] MEDS: QUESTRAN POWDER FOR ORAL SUSP PO SCH (08:29)
[2019-04-13] MEDS: ZESTRIL TAB 10 MG PO SCH ×2 (08:33→20:35)
[2019-04-13] MEDS: APRESOLINE TAB 25 MG PO SCH ×4 (08:33→20:33)
[2019-04-13] MEDS: PROTONIX TAB 40 MG PO SCH (08:34)
[2019-04-13] MEDS: COLACE CAP 100 MG PO SCH (08:34)
[2019-04-13] MEDS: SYNTHROID 50 mcg TAB PO SCH (08:34)
[2019-04-13] MEDS: HEMOCYTE-PLUS PO SCH (08:35)
[2019-04-13] MEDS: ELIQUIS PO SCH ×2 (08:35→20:32)
[2019-04-13] MEDS: JANUVIA PO SCH (08:35)
[2019-04-13] MEDS: MYLICON TAB 80 MG CHEW PO SCH ×2 (08:36→20:32)
[2019-04-13] MEDS: TAB-A-VITE PO SCH (08:36)
[2019-04-13] MEDS: LANOXIN PO SCH (08:37)
[2019-04-13] MEDS: CALAN SR 180 MG PO SCH (08:40)
[2019-04-13] MEDS: TEMOVATE CREAM EXT SCH ×2 (08:41→20:34)
[2019-04-13] MEDS: NORCO 5/325 MG TAB PO PRN (08:42)
[2019-04-13] MEDS: HumuLIN R SUBCUT PRN ×2 (11:59→20:36)
[2019-04-13] MEDS: NYSTATIN CREAM TOP SCH ×2 (14:11→21:15)
[2019-04-13] MEDS: SNACK - Diabetic Appropriate PO SCH (20:27)
[2019-04-13] MEDS: LIPITOR TAB 20 MG PO SCH (20:32)
[2019-04-13] MEDS: LEVEMIR SC SCH (20:33)
[2019-04-13] MEDS: TRAVATAN Z AFFEYE SCH (20:35)
[2019-04-13] MEDS ORDERED: MILK OF MAGNESIA PO SCH (21:00)
[2019-04-13] MEDS ORDERED: COLACE CAP 100 MG PO SCH (21:00)
--- NOTE | 2019-04-13 21:44 | PCM.PROG ---
Progress Note - Progress Note for Day of Date of Exam: 04/12/19 - Subjective Subjective: WAS ADMITTED TO THE HOSPITAL FOR HYPONATREMIA. TODAY, SHE IS ALERT AND ORIENTED, LYING IN BED ON MORNING ROUNDS. SHE CONTINUES WITH WEAKNESS TODAY AND ALSO REPORTS RIGHT SHOULDER PAIN. NO KNOWN INJURY NOTED. ON EXAMINATION, HEART IS REGULAR IN RATE AND RHYTHM. BILATERAL LUNGS ARE NOTED WITH DIMINISHED LUNG SOUNDS THROUGHOUT. ABDOMEN IS ROUND, SOFT, AND NON-TENDER WITH NORMAL BOWEL SOUNDS NOTED IN ALL QUADRANTS. HER VITALS THIS MORNING ARE: 98.3-66-18-99%-147/67. LABS WERE OBTAINED. ABNORMAL LAB VALUES INCLUDE THE FOLLOWING: SODIUM 131, CHLORIDE 95, CREATININE 1.25, GLUCOSE 133. SHE IS CURRENTLY RECEIVING NORMAL SALINE AT 80ML/HR. TODAY, WE WILL OBTAIN A RIGHT SHOULDER XRAY. OTHERWISE, WE WILL CONTINUE WITH CURRENT PLAN OF CARE. WE PLAN TO FOLLOW-UP WITH AM LABS AND CONTINUE TO MONITOR. - Past Medical Family Social History Past Med/Fam/Surg Hx: No changes since H&P Allergies: Allergies tuberculin,PPD,multi-puncture Allergy (Verified 08/17/18 17:34) - Review of Systems ROS: No change since H&P - Vital Signs and I&O's Vital Signs: Temperature 98.8 F Pulse Rate [Right Brachial] 56 Pulse Rate 65 Respiratory Rate 20 Blood Pressure [Right Arm] 123/70 Blood Pressure [Left Arm] 161/72 Blood Pressure 161/72 O2 Sat by Pulse Oximetry 97 Intake and Output: Intake & Output 04/11/19 04/12/19 04/13/19 04/14/19 11:59 11:59 11:59 11:59 Intake Total 1100 / 1100 1560 / 1560 1890 / 1890 1240 / 1240 Balance 1100 / 1100 1560 / 1560 1890 / 1890 1240 / 1240 - Physical Exam Oriented: Normal Eyes: Normal Ear: Normal Nose: Normal Throat: Normal Respiratory: Normal Cardiovascular: Normal. negative: S3, S4, Murmur : Normal Auscultation: Bowel Sounds: Normal Palpation: Normal Tenderness: Normal Skin: Wound (SCABBED OVER WOUNDS TO LEFT UPPER CHEST ) Musculoskeletal: Right, Shoulder, Tender Psychiatric: Normal Affect: Normal Speech Pattern: Clear, Appropriate - Laboratory and Diagnostics Result Diagrams: 04/13/19 04:35 04/13/19 04:35 Labs: Laboratory WBC 6.0 X10^3/uL (3.6-10.0) 04/13/19 04:35 RBC 3.59 X10^6/uL (3.5-5.4) 04/13/19 04:35 Hgb 11.8 g/dL (12.0-16.0) L D 04/13/19 04:35 Hct 32.7 % (36.0-47.0) L 04/13/19 04:35 MCV 91.1 fL (80.0-100.0) 04/13/19 04:35 MCH 32.9 pg (27.0-34.0) 04/13/19 04:35 MCHC 36.1 g/dL (33.0-35.0) H 04/13/19 04:35 RDW 13.5 % (11.6-16.5) 04/13/19 04:35 Plt Count 253 X10^3/uL (150.0-450.0) 04/13/19 04:35 MPV 6.7 fL (7.4-11.0) L 04/13/19 04:35 Neut % (Auto) 61.4 % (42.0-75.0) 04/13/19 04:35 Lymph % (Auto) 19.4 % (21.0-51.0) L 04/13/19 04:35 [place]ie % (Auto) 13.6 % (0.0-13.0) H 04/13/19 04:35 Eos % (Auto) 4.9 % (0.9-2.9) H 04/13/19 04:35 Baso % (Auto) 0.7 % (0.2-1.0) 04/13/19 04:35 Neut # (Auto) 3.7 x10^3/uL (2.2-4.8) 04/13/19 04:35 Lymph # (Auto) 1.2 X10^3/uL (1.3-2.9) L 04/13/19 04:35 Davie # (Auto) 0.8 x10^3/uL (0.3-0.8) 04/13/19 04:35 Eos # (Auto) 0.3 x10^3/uL (0.0-0.2) H 04/13/19 04:35 Baso # (Auto) 0.0 X10^3/uL (0.0-0.1) 04/13/19 04:35 Absolute Nucleated RBC 0.0 /100WBC 04/13/19 04:35 Sodium 130 mmol/L (136-145) L 04/13/19 04:35 Corrected Sodium 132 mmol/L (136-145) L 04/13/19 04:35 Potassium 3.8 mmol/L (3.5-5.1) 04/13/19 04:35 Chloride 98 mmol/L (98-107) 04/13/19 04:35 Carbon Dioxide 26.0 mmol/L (21-32) 04/13/19 04:35 BUN 11 mg/dL (7-18) 04/13/19 04:35 Creatinine 0.89 mg/dL (0.55-1.02) 04/13/19 04:35 Est GFR (MDRD) Af Amer > 60 (>60) 04/13/19 04:35 Est GFR (MDRD) Non-Af > 60 (>60) 04/13/19 04:35 Glucose 169 mg/dL (65-99) H 04/13/19 04:35 POC Glucose (mg/dL) 171 mg/dL (65-99) H 04/13/19 19:51 Calcium 8.1 mg/dL (8.5-10.1) L 04/13/19 04:35 Corrected Calcium 9.1 mg/dL (8.5-10.1) 04/13/19 04:35 Magnesium 1.8 mg/dL (1.7-2.9) 04/13/19 04:35 Total Bilirubin 0.40 mg/dL (0.2-1.0) 04/13/19 04:35 AST 13 Units/L (15-37) L 04/13/19 04:35 ALT 21 Units/L (12-78) 04/13/19 04:35 Alkaline Phosphatase 59 Units/L (46-116) 04/13/19 04:35 Total Protein 5.6 g/dL (6.4-8.2) L 04/13/19 04:35 Albumin 2.8 g/dL (3.4-5.0) L 04/13/19 04:35 Globulin 2.8 g/dL (2.5-4.5) 04/13/19 04:35 Albumin/Globulin Ratio 1.0 Ratio (1.1-2.1) L 04/13/19 04:35 Digoxin 1.28 ng/mL (0.9-2) 04/11/19 10:50 - Plan (1) Hyponatremia Status: Acute Plan: NORMAL SALINE AT 80ML/HR, CONTINUE TO MONITOR
[2019-04-14] MEDS: ARTIFICIAL TEARS DROPS OP SCH ×2 (05:28→13:33)
[2019-04-14] MEDS: NS 1000 ML 1,000 ML IV SCH ×2 (05:28→06:01)
[2019-04-14] MEDS: NYSTATIN CREAM TOP SCH ×2 (05:28→13:33)
[2019-04-14 05:42] LABS: EOSINOPHILS # (AUTO) 0.2 x10^3/uL (0.0-0.2); EOSINOPHILS % (AUTO) 3.4 % (0.9-2.9); HEMATOCRIT 32.3 % (36.0-47.0); HEMOGLOBIN 11.4 g/dL (12.0-16.0); LYMPHOCYTES % (AUTO) 20.6 % (21.0-51.0); MEAN CORPUSCULAR HEMOGLOBIN 32.8 pg (27.0-34.0); MEAN CORPUSCULAR HGB CONC 35.2 g/dL (33.0-35.0); MEAN CORPUSCULAR VOLUME 93.1 fL (80.0-100.0); MEAN PLATELET VOLUME 7.5 fL (7.4-11.0); MONOCYTES # (AUTO) 0.8 x10^3/uL (0.3-0.8); MONOCYTES % (AUTO) 17.5 % (0.0-13.0); NEUTROPHILS # (AUTO) 2.7 x10^3/uL (2.2-4.8); NEUTROPHILS % (AUTO) 57.5 % (42.0-75.0); PLATELET COUNT 200 X10^3/uL (150.0-450.0); RED BLOOD COUNT 3.46 X10^6/uL (3.5-5.4); RED CELL DISTRIBUTION WIDTH 13.8 % (11.6-16.5); WHITE BLOOD COUNT 4.7 X10^3/uL (3.6-10.0)
[2019-04-14] MEDS: HumuLIN R SUBCUT PRN ×2 (05:54→12:02)
[2019-04-14 06:08] LABS: ALANINE AMINOTRANSFERASE 20 Units/L (12-78); ALBUMIN 2.8 g/dL (3.4-5.0); ALKALINE PHOSPHATASE 61 Units/L (46-116); ASPARTATE AMINO TRANSFERASE 13 Units/L (15-37); BLOOD UREA NITROGEN 11 mg/dL (7-18); CALCIUM 7.8 mg/dL (8.5-10.1); CARBON DIOXIDE 25.3 mmol/L (21-32); CHLORIDE 100 mmol/L (98-107); COR CA(FOR HYPOALB) 8.8 mg/dL (8.5-10.1); COR NA(FOR HYPERGLY) 136 mmol/L (136-145); CREATININE 0.99 mg/dL (0.55-1.02); MAGNESIUM 2.3 mg/dL (1.7-2.9); SODIUM 133 mmol/L (136-145); TOTAL PROTEIN 5.6 g/dL (6.4-8.2); eGFR NON BLACK RACES 57 (>60)
[2019-04-14] MEDS: APRESOLINE TAB 25 MG PO SCH ×2 (08:27→13:22)
[2019-04-14] MEDS: ELIQUIS PO SCH (08:28)
[2019-04-14] MEDS: HEMOCYTE-PLUS PO SCH (08:28)
[2019-04-14] MEDS: CITRACAL + VITAMIN D PO SCH (08:28)
[2019-04-14] MEDS: JANUVIA PO SCH (08:28)
[2019-04-14] MEDS: CALAN SR 180 MG PO SCH (08:28)
[2019-04-14] MEDS: PROTONIX TAB 40 MG PO SCH (08:29)
[2019-04-14] MEDS: MYLICON TAB 80 MG CHEW PO SCH (08:29)
[2019-04-14] MEDS: LANOXIN PO SCH (08:29)
[2019-04-14] MEDS: ZESTRIL TAB 10 MG PO SCH (08:30)
[2019-04-14] MEDS: TEMOVATE CREAM EXT SCH (08:30)
[2019-04-14] MEDS: SYNTHROID 50 mcg TAB PO SCH (08:30)
[2019-04-14] MEDS: TAB-A-VITE PO SCH (08:30)
[2019-04-14] MEDS: NORCO 5/325 MG TAB PO PRN (08:34)
[2019-04-14 13:14] VITALS: BP 136/64
[2019-04-14] MEDS ORDERED: DULCOLAX SUPPOSITORY 10 MG RECTAL ONE (13:16)
[2019-04-14] MEDS ORDERED: DULCOLAX SUPPOSITORY 10 MG ONE (13:20)
== END 2019-04-14 13:40 | DRG 641 ==
LOC: MED/SURG → OBSVTOIN 21:35
PROVIDERS: ADMIT Internal Medicine; ATTEND Internal Medicine
DX: Z66 Do not resuscitate; E11.65 Type 2 diabetes mellitus with hyperglycemia; I25.10 Atherosclerotic heart disease of native coronary artery without angina pectoris; I10 Essential (primary) hypertension; F32.89 Other specified depressive episodes; E87.1 Hypo-osmolality and hyponatremia; K21.9 Gastro-esophageal reflux disease without esophagitis; M25.511 Pain in right shoulder; E03.8 Other specified hypothyroidism; Z87.440 Personal history of urinary (tract) infections
CPT/HCPCS: 36415; 73030; 80053; 80162; 83735; 85025; 97110; 97162; 97530; A4216; A4222; J1815; J3475; J7030

== ENCOUNTER 2019-09-09 20:51 | Inpatient (IN) ==
--- NOTE | 2019-09-09 21:31 | DR.GENAD ---
HPI - PCP Primary Care Physician: TIFFANI - Complaint/Symptoms Chief Complaint Doctors Comments: Patient fell at the detention three hours ago and they said she was doing fine but since she has not been acting right and has been complaing of left sided chest pain. Patient states she was going to the bathroom and lost her balance and fell. She denies chest pain, cold, cough, fever or chills. States she has left sided pain with SOB. She has a headache but denies dizziness presently. She denies back and neck pain. Stats she is a patient of Dr. Phillips. states her appetite is good and she denies nausea, vomiting or diarrhea. She denies tobacco, alcohol or drug usage. She denies pain when she moves her legs or hip or arms. Chief Complaint:: RECIEVED CALL FROM RACHID STATING PT FELL TODAY AT 1730. STATES AT THE TIME PT WAS OKAY BUT TIME PROGRESSED PT STARTING NOT ACTING LIKE HERSELF. - Nurses notes reviewed Nurses Notes Review: Yes - Source History Provided: Patient, Mcfp - Mode of Arrival Mode of Arrival: Stretcher - Timing Onset of Chief Complaint: 09/09/19 Came on: Suddenly - Duration Duration: Constant How lon Duration: Hours - Location Location: left sided chest wall pain - Severity Severity: Moderate - Modifying Factors Worsens:: movement and palpation Improves:: nothing PMH - PMH Past Medical History: Yes Past Medical History: Coronary Artery Disease, Hypertension, Dyslipidemia, Diabetes, Depression, Hypothyroidism, Anemia, CVA, Asthma, GERD, Arthritis, CHF Past Surgical History: Yes Surgical History: Angioplasty/Stents, PEARL GLUE DRIER Surgery - Family History History of Family Medical Conditions: Yes Family Medical History: Diabetes Mellitus, [place], Coronary Artery Disease, Sudden Cardiac - Social History Do you use any recreational Drugs:: No - infectious screening In the last 2 months have you had wt loss of >10#?: NO Have you traveled outside the country in the last 6 months?: No Isolation: Standard ROS - Review of Systems Constitutional: No Symptoms Reported Eyes: No Symptoms Reported. negative: See HPI, Eye Pain, Blurred Vision, Tearing, Discharge, Photophobia, Diplopia, Other ENTM: No Symptoms Reported Respiratoy: No Symptoms Reported, Short of Breath Cardiovascular: No Symptoms Reported, Chest Pain. negative: See HPI, Edema, Palpitations, Syncope, Cyanosis, Skin Mottling, Other Gastrointestinal/Abdominal: Abdominal Pain (RUQ pain). negative: No Symptoms Reported, See HPI, Constipation, Diarrhea, Nausea, Vomiting, Food Intolerance, Other Genitourinary: negative: No Symptoms Reported, See HPI, Discharge, Dysuria, Frequency, Hematuria, Pain, Bleeding, Other Neurological: No Symptoms Reported, Weakness, Dizziness. negative: See HPI, Anxiety, Depressed, Emotional Problems, Headache, Numbness, Paresthesia, Pre- existing Deficit, Seizure, Tingling, Tremors, Problems Walking, Speech Problem, Other Musculoskeletal: No Symptoms Reported, Left, Chest wall Integumentary: No Symptoms Reported Hematologic/Lymphatic: No Symptoms Reported. negative: See HPI, Anemia, Blood Clots, Easy Bleeding, Easy Bruising, Swollen Glands, Lymphadenopathy, Other Endocrine: No Symptoms Reported Psychiatric: No Symptoms Reported. negative: See HPI, Anxiety, Depression, Hallucinations, Excessive crying, Suicidal, Other PE - General Limitations: No Limitations General Appearance: Alert, In Distress (slight) - Head Head Exam: Normal Inspection, Atraumatic, Normocephalic - Eyes Eye exam: Normal Appearance, PERRL, EOMI. negative: Scleral Icterus, Conjunctival Injection, Nystagmus, Miosis, Mydrasis, Periorbital Swelling, P eriorbital Tenderness, Other - ENT ENT Exam: Normal Exam, Normal Oropharynx, Normal External Ear Exam, Mucous Membranes Moist, TM's Normal Bilaterally External Ear Exam: Normal External Inspection TM/Canal Exam: Bilateral Normal Nose Exam: Normal Nose Exam Mouth Exam: Normal Inspection. negative: Drooling, Trismus, Lip Swelling, Tongue Elevation, Tongue Swelling, Laceration, Other Throat Exam: Normal Inspection. negative: Tonsillar Erythema, Tonsillomegaly, Tonsillar Exudate, R Peritonsillar Mass, L Peritonsillar Mass, Muffled Voice, Other - Neck Neck Exam: Normal Inspection, Full ROM - Chest Chest Inspection: Normal Inspection, Symmetric Chest Wall Rise, Tenderness (left lateral chest wall tender; no crepitus) - Respiratory Respiratory Exam: Normal Lung Sounds Bilat Respiratory Exam: Bilateral Clear to Auscultation - Cardiovascular Cardiovascular Exam: Regular Rate, Normal Rhythm, Normal Heart Sounds, Systolic Murmur - Abdominal Exam Abdominal Exam: Normal Inspection, Normal Bowel Sounds, Soft, Tenderness (RUQ tenderness) Abdominal Tenderness: RUQ, Mild - Extremities Extremities Exam: Normal Inspection, Full ROM, Tenderness (slight tenderness left shoulder), Normal Capillary Refill - Back Back Exam: Normal Inspection, Full ROM. negative: Tenderness, (R) CVA Tenderness, (L) CVA Tenderness, Muscle Spasm, Paraspinal Tenderness, Vertebral Tenderness, Rashes, (R) Sciatic Notch Tenderness, (L) Sciatic Notch Tendern, (R) Straight Leg Raise, (L) Straight Leg Raise, Other - Neurologic Neurological Exam: Alert, Oriented X3, CN II-XII Intact, Reflexes Normal. negative: Normal Gait (gait not tested) - Psychiatric Psychiatric Exam: Normal Affect, Normal Mood - Skin Skin Exam: Warm, Dry, Intact, Normal Color - Vital Signs Vitals: Temperature 97.6 F Pulse Rate [Left] 39 Pulse Rate 42 Respiratory Rate 20 Blood Pressure [Left Arm] 101/53 Blood Pressure 93/52 O2 Sat by Pulse Oximetry 95 ROR - Labs Reviewed Laboratory Results Reviewed?: Yes (All labs and x-ray results reviewed and discussed with patient) Result Diagrams: 09/09/19 21:58 09/09/19 21:58 - Other Results Comments: CT abdomen and pelvis: Small amount of perihepatic free fluid and small to mod volume layering pelvic free fluid. Somemesenteric free fluid adjacent to a small bowel loop is observed. Liver and/or bowel mesenteric injury cannot be completely excluded. Small bilateral pleural effusions and anasarca are present. Constipation. CT thoracic spine: Wedge deformity of T7 vertebra body with 50% height loss. Bilateral pleural effusion. Multilevel spine degenerative change - XRAY XRAY Interpreted by: Radiologist (CT head: No acute intracranial abnormality. Stable chronic findings.), Self (CXR: No acute chest process. CT head: No acue intracranial abnormality.), Both (CXR: No acute chest process.) XRAY Findings: Left shoulder: No acute osseous abnormality of left shoulder - EKG Rate: 40 Rhythm: Junctional Block: RBBB ST: Nonsp - Labs Reviewed Laboratory: WBC 11.6 X10^3/uL (3.6-10.0) H 09/09/19 21:58 RBC 3.59 X10^6/uL (3.5-5.4) 09/09/19 21:58 Hgb 11.6 g/dL (12.0-16.0) L 09/09/19 21:58 Hct 32.5 % (36.0-47.0) L 09/09/19 21:58 MCV 90.5 fL (80.0-100.0) 09/09/19 21:58 MCH 32.4 pg (27.0-34.0) 09/09/19 21:58 MCHC 35.8 g/dL (33.0-35.0) H 09/09/19 21:58 RDW 14.1 % (11.6-16.5) 09/09/19 21:58 Plt Count 265 X10^3/uL (150.0-450.0) 09/09/19 21:58 MPV 6.7 fL (7.4-11.0) L 09/09/19 21:58 Neut % (Auto) 78.0 % (42.0-75.0) H 09/09/19 21:58 Lymph % (Auto) 12.1 % (21.0-51.0) L 09/09/19 21:58 [place] % (Auto) 8.5 % (0.0-13.0) 09/09/19 21:58 Eos % (Auto) 1.1 % (0.9-2.9) 09/09/19 21:58 Baso % (Auto) 0.3 % (0.2-1.0) 09/09/19 21:58 Neut # (Auto) 9.0 x10^3/uL (2.2-4.8) H 09/09/19 21:58 Lymph # (Auto) 1.4 X10^3/uL (1.3-2.9) 09/09/19 21:58 [place] # (Auto) 1.0 x10^3/uL (0.3-0.8) H 09/09/19 21:58 Eos # (Auto) 0.1 x10^3/uL (0.0-0.2) 09/09/19 21:58 Baso # (Auto) 0.0 X10^3/uL (0.0-0.1) 09/09/19 21:58 Absolute Nucleated RBC 0.0 /100WBC 09/09/19 21:58 PT 14.9 SECONDS (11.8-14.3) 09/09/19 21:58 INR Target Range - 09/09/19 21:58 INR 1.21 (0.8-1.3) 09/09/19 21:58 APTT 34.4 SECONDS (22.9-36.5) 09/09/19 21:58 PTT Comment - 09/09/19 21:58 Sodium 114 mmol/L (136-145) L* 09/09/19 21:58 Corrected Sodium 117 mmol/L (136-145) L 09/09/19 21:58 Potassium 5.6 mmol/L (3.5-5.1) H 09/09/19 21:58 Chloride 85 mmol/L (98-107) L 09/09/19 21:58 Carbon Dioxide 18.1 mmol/L (21-32) L 09/09/19 21:58 BUN 37 mg/dL (7-18) H 09/09/19 21:58 Creatinine 2.05 mg/dL (0.55-1.02) H 09/09/19 21:58 Est GFR (MDRD) Af Amer 30 (>60) L 09/09/19 21:58 Est GFR (MDRD) Non-Af 25 (>60) L 09/09/19 21:58 Glucose 207 mg/dL (65-99) H 09/09/19 21:58 Calcium 8.4 mg/dL (8.5-10.1) L 09/09/19 21:58 Corrected Calcium 9.0 mg/dL (8.5-10.1) 09/09/19 21:58 Magnesium 2.7 mg/dL (1.7-2.9) 09/09/19 21:58 Total Bilirubin 0.40 mg/dL (0.2-1.0) 09/09/19 21:58 AST 19 Units/L (15-37) 09/09/19 21:58 ALT 20 Units/L (12-78) 09/09/19 21:58 Alkaline Phosphatase 72 Units/L (46-116) 09/09/19 21:58 Creatine Kinase 56 Units/L (26-192) 09/09/19 21:58 CK-MB (CK-2) 1.8 ng/mL (0-4.0) 09/09/19 21:58 CK/CKMB % Calc 3.2 % (<4) 09/09/19 21:58 Troponin I < 0.02 ng/mL (0-1.5) 09/09/19 21:58 Total Protein 6.4 g/dL (6.4-8.2) 09/09/19 21:58 Albumin 3.3 g/dL (3.4-5.0) L 09/09/19 21:58 Globulin 3.1 g/dL (2.5-4.5) 09/09/19 21:58 Albumin/Globulin Ratio 1.1 Ratio (1.1-2.1) 09/09/19 21:58 Opioid - Opioid Risk Tool Age (Marcos box if 16-45): No History of Preadolescent Sexual Abuse: No Total: 0 Total Score Risk Category: Low Risk - Diagnosis Discharge Problem: Junctional bradycardia, Hyponatremia, Hyperkalemia, Metabolic acidosis, Dehydration, Diabetes mellitus, type 2, Acute hyponatremia, Anasarca, Bilateral pleural effusion Chronic kidney disease (CKD) Qualifiers: Chronic kidney disease stage: stage 4 (severe) Qualified Code(s): N18.4 - Chronic kidney disease, stage 4 (severe) Compression fracture of T7 vertebra Qualifiers: Encounter type: initial encounter Qualified Code(s): S22.060A - Wedge compression fracture of T7-T8 vertebra, initial encounter for closed fracture - Discharge Plan Disposition: ADMITTED INPATIENT Condition: Stable - Follow ups/Referrals Follow ups/Referrals: Ryan Phillips [Primary Care Provider] - 3 days - Instructions
[2019-09-09 22:05] LABS: BASOPHILS % (AUTO) 0.3 % (0.2-1.0); EOSINOPHILS # (AUTO) 0.1 x10^3/uL (0.0-0.2); EOSINOPHILS % (AUTO) 1.1 % (0.9-2.9); HEMATOCRIT 32.5 % (36.0-47.0); HEMOGLOBIN 11.6 g/dL (12.0-16.0); LYMPHOCYTES # (AUTO) 1.4 X10^3/uL (1.3-2.9); LYMPHOCYTES % (AUTO) 12.1 % (21.0-51.0); MEAN CORPUSCULAR HEMOGLOBIN 32.4 pg (27.0-34.0); MEAN CORPUSCULAR HGB CONC 35.8 g/dL (33.0-35.0); MEAN CORPUSCULAR VOLUME 90.5 fL (80.0-100.0); MEAN PLATELET VOLUME 6.7 fL (7.4-11.0); MONOCYTES % (AUTO) 8.5 % (0.0-13.0); PLATELET COUNT 265 X10^3/uL (150.0-450.0); RED BLOOD COUNT 3.59 X10^6/uL (3.5-5.4); RED CELL DISTRIBUTION WIDTH 14.1 % (11.6-16.5); WHITE BLOOD COUNT 11.6 X10^3/uL (3.6-10.0)
[2019-09-09 22:26] LABS: ALANINE AMINOTRANSFERASE 20 Units/L (12-78); ALBUMIN 3.3 g/dL (3.4-5.0); ALKALINE PHOSPHATASE 72 Units/L (46-116); ASPARTATE AMINO TRANSFERASE 19 Units/L (15-37); BLOOD UREA NITROGEN 37 mg/dL (7-18); CALCIUM 8.4 mg/dL (8.5-10.1); CARBON DIOXIDE 18.1 mmol/L (21-32); CHLORIDE 85 mmol/L (98-107); CKMB % 3.2 % (<4); COR NA(FOR HYPERGLY) 117 mmol/L (136-145); CREATINE KINASE 56 Units/L (26-192); CREATINE KINASE MB 1.8 ng/mL (0-4.0); CREATININE 2.05 mg/dL (0.55-1.02); MAGNESIUM 2.7 mg/dL (1.7-2.9); TOTAL PROTEIN 6.4 g/dL (6.4-8.2); TROPONIN I < 0.02 ng/mL (0-1.5); eGFR NON BLACK RACES 25 (>60)
[2019-09-09 22:27] LABS: SODIUM 114 mmol/L (136-145)
--- NOTE | 2019-09-09 22:43 | CT ---
CT head without contrastIndication: Fall, dizzinessComparison: 08/17/2018Technique: CT images of the head were obtained without contrast. Automatic exposure control was utilized.Findings: The study is mildly degraded by motion. Global atrophy and chronic white matter changes suggestive for microangiopathy are similar to prior. 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 Otherwise, there is no evidence for acute bleed, mass effect, or abnormal extra-axial collection. No acute calvarial fracture identified. The paranasal sinuses and mastoid air cells are essentially clear.Impression: No acute intracranial abnormality. Stable chronic findings as above.Reported By:
--- NOTE | 2019-09-09 22:46 | CT ---
CT thoracic spine without contrastIndication: Fall, pain Comparison: NoneTechnique: CT images of the thoracic spine were obtained without contrast. Automatic exposure control was utilized.Findings: The study is mildly degraded by motion. There is wedge deformity of the T7 vertebral body, demonstrating approximately 50% height loss anteriorly. The vertebral body heights are otherwise normally maintained. There is moderate multilevel discogenic degenerative change with exaggeration of the normal thoracic kyphosis. Mild multilevel facet arthropathy. No significant osseous spinal canal narrowing is observed. Marked degenerative changes of the lower cervical spine are present. There are small layering bilateral pleural effusions.Impression: Age-indeterminate compression deformity of the T7 vertebral body. Correlate with exam. Otherwise no convincing acute thoracic spine fracture or subluxation.Multilevel spine degenerative change.Small layering bilateral pleural effusions.Reported By:
--- NOTE | 2019-09-09 22:57 | CT ---
CT abdomen and pelvis without contrastIndication: Fall, right upper quadrant painComparison: 07/04/2019Technique: CT images of the abdomen and pelvis were obtained without contrast. Automatic exposure control was utilized.Findings: Evaluation for solid or hollow organ injury is markedly limited without IV contrast.There is cardiomegaly with small layering bilateral pleural effusions. No acute fracture or subluxation is identified.The liver and spleen are normal in size and contour. There is small amount of grossly simple appearing free fluid surrounding the liver. Prior cholecystectomy is noted. Within noncontrast limitations, the stomach, adrenals, and kidneys demonstrate no significant abnormality. There is some fat stranding about the pancreas, especially in the region of the pancreatic head and uncinate. No discrete collection can be identified. There is small to moderate layering grossly simple appearing fluid within the pelvis. There is diffusely increased colonic stool burden, suggesting constipation. Some mesenteric fluid is noted adjacent to a small bowel loop within the lower pelvis. No free air is identified. The uterus is noted. The urinary bladder and rectum are unremarkable. There is aortoiliac atherosclerosis, but the abdominal aorta is normal in size. Generalized body wall edema is noted.Impression: Evaluation for solid or hollow organ injury is markedly limited secondary to noncontrast technique.There is small amount of perihepatic free fluid and small to moderate volume layering pelvic free fluid, which is new compared with the prior. Additionally, some mesenteric free fluid adjacent to a small bowel loop within the pelvis is observed. Liver and/or bowel/mesenteric injury cannot be completely excluded, in light of recent trauma.Additional consideration includes volume overload, as small bilateral pleural effusions and anasarca are also present.Constipation.Reported By:
--- NOTE | 2019-09-09 23:21 | RAD ---
Left shoulder, 3 viewsIndication: Fall, shoulder painComparison: NoneFindings: There are mild degenerative changes of the acromioclavicular and glenohumeral joints. No acute cortical disruption or malalignment identified. The visualized chest is grossly unremarkable.Impression: No acute osseous abnormality of the left shoulder. Mild DJD.Reported By:
--- NOTE | 2019-09-09 23:22 | RAD ---
Chest, 1 viewIndication: Fall, dizziness, chest painComparison: 02/14/2018Findings: Cardiac silhouette is stable. There is no mediastinal widening. There is chronic elevation the right hemidiaphragm. Chronic interstitial changes of the lungs are similar prior. No dense infiltrate or significant pleural effusion. No pneumothorax. No displaced fracture identified.Impression: No acute chest process.Reported By:
[2019-09-09] MEDS ORDERED: ATROPINE SULFATE ABBOJECT IVP ONE (23:33)
[2019-09-09] MEDS ORDERED: ATROPINE SULFATE ABBOJECT ONE (23:33)
[2019-09-09] MEDS ORDERED: NS 1000 ML 1,000 ML IV ONE (23:34)
[2019-09-10] MEDS ORDERED: NS 250 ML IV 250 ML IV ONE (00:01)
[2019-09-10] MEDS ORDERED: LASIX IVP ONE ×2 (00:07→00:47)
[2019-09-10 00:47] LABS: BILIRUBIN,URINE NEGATIVE (NEGATIVE); BLOOD/HEMOGLOBIN,URINE NEGATIVE (NEGATIVE); GLUCOSE, URINE NEGATIVE (NEGATIVE); KETONES,URINE 1+ (NEGATIVE); LEUKOCYTE ESTERASE ,URINE 3+ (NEGATIVE); NITRITES,URINE NEGATIVE (NEGATIVE); PROTEIN,URINE 3+ (NEGATIVE); UROBILINOGEN,URINE 1+ (NORMAL)
[2019-09-10 00:53] LABS: AMORPHOUS SEDIMENT,UR 3+ /HPF (NEGATIVE); APPEARANCE,URINE CLOUDY (CLEAR); BACTERIA,URINE TRACE /HPF (NEGATIVE); COLOR,URINE DARK YELLOW (YELLOW); RBC,URINE NONE SEEN /HPF (0-3); SQUAMOUS EPITHELIAL CELL,UR RARE /HPF (NEGATIVE)
[2019-09-10] MEDS: NS 1000 ML 1,000 ML IV SCH ×5 (00:53→23:00)
[2019-09-10] MEDS ORDERED: ISOPROTERENOL HCL IVP SCH ×2 (01:00)
[2019-09-10] MEDS ORDERED: NS IVP SCH ×2 (01:00)
[2019-09-10 01:48] LABS: CKMB % 3.6 % (<4); TROPONIN I 0.05 ng/mL (0-1.5)
[2019-09-10 03:31] VITALS: BMI 25.2
[2019-09-10] MEDS ORDERED: PHARMACY CONSULT LTC MEDICATIONS XX SCH (04:00)
[2019-09-10] MEDS: MORPHINE SULFATE INJ 2 MG INJ IVP PRN ×3 (04:45→20:24)
[2019-09-10] MEDS: HumuLIN R SC PRN ×3 (05:30→17:15)
[2019-09-10 06:33] LABS: BASOPHILS % (AUTO) 0.2 % (0.2-1.0); EOSINOPHILS % (AUTO) 0.1 % (0.9-2.9); HEMATOCRIT 28.9 % (36.0-47.0); HEMOGLOBIN 10.3 g/dL (12.0-16.0); LYMPHOCYTES # (AUTO) 0.5 X10^3/uL (1.3-2.9); LYMPHOCYTES % (AUTO) 5.6 % (21.0-51.0); MEAN CORPUSCULAR HEMOGLOBIN 32.8 pg (27.0-34.0); MEAN CORPUSCULAR HGB CONC 35.6 g/dL (33.0-35.0); MEAN CORPUSCULAR VOLUME 92.1 fL (80.0-100.0); MEAN PLATELET VOLUME 7.7 fL (7.4-11.0); MONOCYTES # (AUTO) 0.6 x10^3/uL (0.3-0.8); MONOCYTES % (AUTO) 7.3 % (0.0-13.0); NEUTROPHILS # (AUTO) 7.4 x10^3/uL (2.2-4.8); NEUTROPHILS % (AUTO) 86.8 % (42.0-75.0); PLATELET COUNT 223 X10^3/uL (150.0-450.0); RED BLOOD COUNT 3.14 X10^6/uL (3.5-5.4); RED CELL DISTRIBUTION WIDTH 14.4 % (11.6-16.5); WHITE BLOOD COUNT 8.5 X10^3/uL (3.6-10.0)
[2019-09-10 06:57] LABS: CALCIUM 7.6 mg/dL (8.5-10.1); CARBON DIOXIDE 18.6 mmol/L (21-32); CHOL/HDL RATIO 2.4 (0.0-5.0); CKMB % 3.9 % (<4); COR CA(FOR HYPOALB) 8.4 mg/dL (8.5-10.1); CREATINE KINASE MB 2.4 ng/mL (0-4.0); CREATININE 1.89 mg/dL (0.55-1.02); TOTAL PROTEIN 5.9 g/dL (6.4-8.2); TROPONIN I 0.07 ng/mL (0-1.5)
[2019-09-10] MEDS ORDERED: PROTONIX INJ 40 MG VIAL IVP SCH (09:00)
--- NOTE | 2019-09-10 11:41 | DR.H&P ---
H&P History & Physical for Day of: H&P Date: 09/10/19 Chief Complaint Chief Complaint: Fall and chest pain Allergies Allergies Allergy/AdvReac Type Severity Reaction Status Date / Time tuberculin,PPD,multi-puncture Allergy Verified 08/17/18 17:34 History of Present Illness History of Present Illness: Pt is an 83 yo f pmhx HTN,CAD, CHF, DMT2, Hypothyroidism, MDD presenting after fall after losing her balance at the snf when going to the bathroom. She fell on her left side and was initially fine but then was complaining of left sided chest pain w/ some shortness of breath. Pt also having abdominal and left shoulder pain. Initial labs:Wbc 11.6, Hgb 11.6, Na 114, K 5.6, Cl 85, HCO3 18, BUN 37, Cr 2.05, Glucose 207; UA TNTC wbc, Nitrite negative, UrineCX pending -CT brain: no acute findings. -CT A/P Impression: There is small amount of perihepatic free fluid and small to moderate volume layering pelvic free fluid, which is new compared with the prior. Additionally, some mesenteric free fluid adjacent to a small bowel loop within the pelvis is observed. Liver and/or bowel/mesenteric injury cannot be completely excluded, in light of recent tra bayron. Additional consideration includes volume overload, as small bilateral pleural effusions and anasarca are also present. Constipation. CT Thoracic spine: Impression: Age-indeterminate compression deformity of the T7 vertebral body. Correlate with exam. Otherwise no convincing acute thoracic spin e fracture or subluxation. Multilevel spine degenerative change. Small layering bilateral pleural effusions. -XR L shoulder: no acute findings; -CXR: No acute findings;-Ekg:Rate 40, Junctional, RBBB, ST nonsp, Troponin 0.02>0.05>0.07 -Pt was given IV Lasix 40mg in ED and started on IVF for severe hyponatremia. She was also started on isoproterenol infusion overnight for bradycardia. Past Medical History Past Medical History: Anemia, Arthritis, Asthma, CHF, Coronary Artery Disease, CVA, Depression, Diabetes, Dyslipidemia, GERD, Hypertension and Hypothyroidism Additional Medical History: DVT, Sleep Apnea, Depression, Chronic Sinusitis, Allergic Rhinitis, Constipation, Edema, UTI's, Pneumonia, Arthritis, Cataracts, Osteoporosis, Glaucoma, Ear Infections, Gastrointestinal Ulcer, Cardiac Arrhythmia, Muscle Weakness, Osteoporsis, Restless leg syndrome Past Surgical History Surgical History: Angioplasty/Stents and MAGNETIZER Surgery Additional Surgical History: Sinus surgery Family History Family Medical History: Diabetes Mellitus, [place], Coronary Artery Disease and Sudden Cardiac Social History Does patient currently use any type of tobacco product: No Have you used tobacco products in the last 12 months: No Type of Tobacco Use: None Alcohol Use: None Drug Use: None Medications Home Medications: tuberculin,PPD,multi-puncture Allergy (Verified 08/17/18 17:34) CONTINUE taking the following medications docusate sodium [Colace] 100 mg PO BID 09/10/19 [History] nitroglycerin 1 patch TRANSDERMAL DAILY 09/10/19 [History] polyethylene glycol 3350 [Miralax] 17 g PO DAILY PRN 09/10/19 [History] sitagliptin [Januvia] 50 mg PO DAILY 09/10/19 [History] Labs Result Diagrams: 09/10/19 05:08 09/10/19 05:08 Labs: Laboratory WBC 8.5 X10^3/uL (3.6-10.0) 09/10/19 05:08 RBC 3.14 X10^6/uL (3.5-5.4) L 09/10/19 05:08 Hgb 10.3 g/dL (12.0-16.0) L 09/10/19 05:08 Hct 28.9 % (36.0-47.0) L 09/10/19 05:08 MCV 92.1 fL (80.0-100.0) 09/10/19 05:08 MCH 32.8 pg (27.0-34.0) 09/10/19 05:08 MCHC 35.6 g/dL (33.0-35.0) H 09/10/19 05:08 RDW 14.4 % (11.6-16.5) 09/10/19 05:08 Plt Count 223 X10^3/uL (150.0-450.0) 09/10/19 05:08 MPV 7.7 fL (7.4-11.0) 09/10/19 05:08 Neut % (Auto) 86.8 % (42.0-75.0) H 09/10/19 05:08 Lymph % (Auto) 5.6 % (21.0-51.0) L 09/10/19 05:08 [place] % (Auto) 7.3 % (0.0-13.0) 09/10/19 05:08 Eos % (Auto) 0.1 % (0.9-2.9) L 09/10/19 05:08 Baso % (Auto) 0.2 % (0.2-1.0) 09/10/19 05:08 Neut # (Auto) 7.4 x10^3/uL (2.2-4.8) H 09/10/19 05:08 Lymph # (Auto) 0.5 X10^3/uL (1.3-2.9) L 09/10/19 05:08 [place] # (Auto) 0.6 x10^3/uL (0.3-0.8) 09/10/19 05:08 Eos # (Auto) 0.0 x10^3/uL (0.0-0.2) 09/10/19 05:08 Baso # (Auto) 0.0 X10^3/uL (0.0-0.1) 09/10/19 05:08 Absolute Nucleated RBC 0.1 /100WBC 09/10/19 05:08 PT 14.9 SECONDS (11.8-14.3) 09/09/19 21:58 INR Target Range - 09/09/19 21:58 INR 1.21 (0.8-1.3) 09/09/19 21:58 APTT 34.4 SECONDS (22.9-36.5) 09/09/19 21:58 PTT Comment - 09/09/19 21:58 Sodium 116 mmol/L (136-145) L* 09/10/19 05:08 Corrected Sodium 120 mmol/L (136-145) L 09/10/19 05:08 Potassium 5.4 mmol/L (3.5-5.1) H 09/10/19 05:08 Chloride 87 mmol/L (98-107) L 09/10/19 05:08 Carbon Dioxide 18.6 mmol/L (21-32) L 09/10/19 05:08 BUN 37 mg/dL (7-18) H 09/10/19 05:08 Creatinine 1.89 mg/dL (0.55-1.02) H 09/10/19 05:08 Est GFR (MDRD) Af Amer 33 (>60) L 09/10/19 05:08 Est GFR (MDRD) Non-Af 27 (>60) L 09/10/19 05:08 Glucose 256 mg/dL (65-99) H 09/10/19 05:08 POC Glucose (mg/dL) 254 mg/dL (65-99) H 09/10/19 05:09 Calcium 7.6 mg/dL (8.5-10.1) L 09/10/19 05:08 Corrected Calcium 8.4 mg/dL (8.5-10.1) L 09/10/19 05:08 Magnesium 2.7 mg/dL (1.7-2.9) 09/09/19 21:58 Total Bilirubin 0.30 mg/dL (0.2-1.0) 09/10/19 05:08 AST 17 Units/L (15-37) 09/10/19 05:08 ALT 20 Units/L (12-78) 09/10/19 05:08 Alkaline Phosphatase 67 Units/L (46-116) 09/10/19 05:08 Creatine Kinase 61 Units/L (26-192) 09/10/19 05:08 CK-MB (CK-2) 2.4 ng/mL (0-4.0) 09/10/19 05:08 CK/CKMB % Calc 3.9 % (<4) 09/10/19 05:08 Troponin I 0.07 ng/mL (0-1.5) 09/10/19 05:08 Total Protein 5.9 g/dL (6.4-8.2) L 09/10/19 05:08 Albumin 3.0 g/dL (3.4-5.0) L 09/10/19 05:08 Globulin 2.9 g/dL (2.5-4.5) 09/10/19 05:08 Albumin/Globulin Ratio 1.0 Ratio (1.1-2.1) L 09/10/19 05:08 Triglycerides 105 mg/dL (0-150) 09/10/19 05:08 Cholesterol 81 mg/dL (0-200) 09/10/19 05:08 LDL Cholesterol, Calc 26 mg/dL (0-100) 09/10/19 05:08 HDL Cholesterol 34 mg/dL (40-60) L 09/10/19 05:08 Cholesterol/HDL Ratio 2.4 (0.0-5.0) 09/10/19 05:08 Specimen Type Catherized urine 09/10/19 00:37 Urine Color Dark yellow (YELLOW) 09/10/19 00:37 Urine Appearance Cloudy (CLEAR) 09/10/19 00:37 Urine pH 5.0 (5.0 - 8.0) 09/10/19 00:37 Ur Specific [place] 1.020 (1.000-1.030) 09/10/19 00:37 Urine Protein 3+ (NEGATIVE) 09/10/19 00:37 Urine Glucose (UA) Negative (NEGATIVE) 09/10/19 00:37 Urine Ketones 1+ (NEGATIVE) 09/10/19 00:37 Urine Occult Blood Negative (NEGATIVE) 09/10/19 00:37 Urine Nitrite Negative (NEGATIVE) 09/10/19 00:37 Urine Bilirubin Negative (NEGATIVE) 09/10/19 00:37 Urine Urobilinogen 1+ (NORMAL) 09/10/19 00:37 Ur Leukocyte Esterase 3+ (NEGATIVE) 09/10/19 00:37 Urine RBC None seen /HPF (0-3) 09/10/19 00:37 Urine WBC Tntc /HPF (0-5) A 09/10/19 00:37 Ur Squamous Epith Cells Rare /HPF (NEGATIVE) 09/10/19 00:37 Amorphous Sediment 3+ /HPF (NEGATIVE) 09/10/19 00:37 Urine Bacteria Trace /HPF (NEGATIVE) 09/10/19 00:37 Ur Culture Indicated? Yes/culture set up 09/10/19 00:37 Review of Systems Constitutional: Weakness; denies Fever and Chills Eyes: No Symptoms Reported ENT: No Symptoms Reported Respiratory: Shortness of Breath; denies Cough, Hemoptysis and Wheezing Cardiovascular: Chest Pain (left sided ); denies Palpitations and Edema Gastrointestinal: denies Nausea and Vomiting Genitourinary: No Symptoms Reported Musculoskeletal: Shoulder Pain and Back Pain Skin: No Symptoms Reported Neurological: See HPI Physical Exam Vital Signs: Temperature 99.4 F Pulse Rate [Left] 72 Pulse Rate 59 Respiratory Rate 22 Blood Pressure [Left Arm] 167/69 Blood Pressure 167/69 O2 Sat by Pulse Oximetry 100 Oriented: Normal Eyes: Normal Ear: Normal Nose: Normal Respiratory: Clear Throughout Cardiovascular: Bradycardia : Normal Auscultation: Bowel Sounds: Normal Palpation: Normal Tenderness: Normal Skin: Normal Musculoskeletal: Normal Psychiatric: Normal Mood Description: Calm Assessment/Plan (1) Acute hyponatremia: Status: Acute Plan: Continue IVF, will monitor sodium levels. Na(corrected):117>120 (2) Junctional bradycardia: Status: Acute Plan: Holding rate controlling medications. D/c isoproterenol gtt. Continue to monitor. (3) Dehydration: Status: Acute (4) Chronic kidney disease (CKD): Qualifiers: Chronic kidney disease stage: stage 4 (severe) Qualified Code(s): N18.4 - Chronic kidney disease, stage 4 (severe) Status: Acute
[2019-09-10] MEDS ORDERED: MIRALAX POWDER (1 DOSE 17 G) PO PRN (11:59)
[2019-09-10] MEDS ORDERED: PROTONIX TAB 40 MG PO SCH (12:00)
[2019-09-10] MEDS ORDERED: HumuLIN R SUBCUT SCH (12:00)
[2019-09-10 12:41] LABS: CALCIUM 7.5 mg/dL (8.5-10.1); CARBON DIOXIDE 18.9 mmol/L (21-32); CREATININE 1.66 mg/dL (0.55-1.02)
[2019-09-10 12:59] LABS: CKMB % 3.2 % (<4); CREATINE KINASE MB 2.1 ng/mL (0-4.0); TROPONIN I 0.07 ng/mL (0-1.5)
[2019-09-10] MEDS ORDERED: SODIUM CHL HYPERTONIC ** 3% ** 500 ML IV NR (14:21)
[2019-09-10] MEDS: LEVEMIR SC SCH ×2 (15:04→21:00)
[2019-09-10] MEDS: HEMOCYTE-PLUS PO SCH (15:04)
[2019-09-10] MEDS: APRESOLINE TAB 25 MG PO SCH ×2 (15:04→22:10)
[2019-09-10 19:40] LABS: CALCIUM 7.5 mg/dL (8.5-10.1); CARBON DIOXIDE 19.6 mmol/L (21-32); CREATININE 1.47 mg/dL (0.55-1.02)
[2019-09-10] MEDS: LIPITOR TAB 20 MG PO SCH (20:17)
[2019-09-10] MEDS: ELIQUIS PO SCH (20:17)
[2019-09-10] MEDS: COLACE CAP 100 MG PO SCH (20:17)
[2019-09-10] MEDS: SNACK - Diabetic Appropriate PO SCH (20:18)
[2019-09-11] MEDS: MORPHINE SULFATE INJ 2 MG INJ IVP PRN ×2 (04:05→09:28)
[2019-09-11] MEDS: APRESOLINE TAB 25 MG PO SCH ×3 (05:30→22:15)
[2019-09-11 06:38] LABS: CARBON DIOXIDE 21.6 mmol/L (21-32); COR CA(FOR HYPOALB) 8.8 mg/dL (8.5-10.1); CREATININE 1.17 mg/dL (0.55-1.02)
[2019-09-11 06:39] LABS: BASOPHILS % (AUTO) 0.3 % (0.2-1.0); EOSINOPHILS # (AUTO) 0.1 x10^3/uL (0.0-0.2); EOSINOPHILS % (AUTO) 0.6 % (0.9-2.9); HEMATOCRIT 30.3 % (36.0-47.0); HEMOGLOBIN 10.7 g/dL (12.0-16.0); LYMPHOCYTES # (AUTO) 0.8 X10^3/uL (1.3-2.9); LYMPHOCYTES % (AUTO) 8.4 % (21.0-51.0); MEAN CORPUSCULAR HEMOGLOBIN 32.4 pg (27.0-34.0); MEAN CORPUSCULAR HGB CONC 35.4 g/dL (33.0-35.0); MEAN CORPUSCULAR VOLUME 91.6 fL (80.0-100.0); MEAN PLATELET VOLUME 7.1 fL (7.4-11.0); MONOCYTES % (AUTO) 10.7 % (0.0-13.0); NEUTROPHILS # (AUTO) 7.2 x10^3/uL (2.2-4.8); PLATELET COUNT 232 X10^3/uL (150.0-450.0); RED BLOOD COUNT 3.31 X10^6/uL (3.5-5.4); RED CELL DISTRIBUTION WIDTH 14.6 % (11.6-16.5)
[2019-09-11] MEDS: NS 1000 ML 1,000 ML IV SCH ×3 (07:11→19:48)
[2019-09-11] MEDS: PROTONIX TAB 40 MG PO SCH (09:25)
[2019-09-11] MEDS: HEMOCYTE-PLUS PO SCH (09:25)
[2019-09-11] MEDS: CITRACAL + VITAMIN D PO SCH (09:25)
[2019-09-11] MEDS: ELIQUIS PO SCH ×2 (09:25→22:12)
[2019-09-11] MEDS: JANUVIA PO SCH (09:26)
[2019-09-11] MEDS: LEVEMIR SC SCH ×2 (09:26→22:15)
[2019-09-11] MEDS: SYNTHROID 50 mcg TAB PO SCH (09:26)
[2019-09-11] MEDS: COLACE CAP 100 MG PO SCH ×2 (09:26→22:12)
[2019-09-11] MEDS: LASIX IVP SCH ×2 (11:11→22:13)
[2019-09-11] MEDS ORDERED: CATAPRES-TTS-3 TD SCH (12:00)
[2019-09-11] MEDS: HumuLIN R SC PRN ×2 (12:52→17:21)
[2019-09-11] MEDS: ZESTRIL TAB 10 MG PO SCH ×2 (12:57→22:15)
[2019-09-11 13:13] LABS: FREE T4 (FREE THYROXINE) 1.21 ng/dL (0.76-1.46); TSH (3RD GENERATION) 3.919 uIU/mL (0.358-3.74)
[2019-09-11] MEDS ORDERED: CALAN SR 120 MG PO SCH (16:00)
[2019-09-11] MEDS: SNACK - Diabetic Appropriate PO SCH (22:12)
[2019-09-11] MEDS: MYLICON TAB 80 MG CHEW PO SCH (22:14)
[2019-09-11] MEDS: LIPITOR TAB 20 MG PO SCH (22:16)
[2019-09-12] MEDS: APRESOLINE TAB 25 MG PO SCH ×4 (05:39→20:32)
[2019-09-12] MEDS: NS 1000 ML 1,000 ML IV SCH ×5 (05:39→23:57)
[2019-09-12 06:58] LABS: BASOPHILS % (AUTO) 0.7 % (0.2-1.0); EOSINOPHILS # (AUTO) 0.1 x10^3/uL (0.0-0.2); EOSINOPHILS % (AUTO) 0.8 % (0.9-2.9); HEMATOCRIT 27.5 % (36.0-47.0); HEMOGLOBIN 9.9 g/dL (12.0-16.0); LYMPHOCYTES # (AUTO) 1.3 X10^3/uL (1.3-2.9); LYMPHOCYTES % (AUTO) 19.1 % (21.0-51.0); MEAN CORPUSCULAR HEMOGLOBIN 32.9 pg (27.0-34.0); MEAN CORPUSCULAR HGB CONC 36.1 g/dL (33.0-35.0); MEAN CORPUSCULAR VOLUME 91.1 fL (80.0-100.0); MEAN PLATELET VOLUME 6.8 fL (7.4-11.0); MONOCYTES # (AUTO) 1.2 x10^3/uL (0.3-0.8); MONOCYTES % (AUTO) 18.3 % (0.0-13.0); NEUTROPHILS % (AUTO) 61.1 % (42.0-75.0); PLATELET COUNT 181 X10^3/uL (150.0-450.0); RED BLOOD COUNT 3.01 X10^6/uL (3.5-5.4); RED CELL DISTRIBUTION WIDTH 14.7 % (11.6-16.5); WHITE BLOOD COUNT 6.6 X10^3/uL (3.6-10.0)
[2019-09-12 07:02] LABS: ALANINE AMINOTRANSFERASE 22 Units/L (12-78); ALBUMIN 2.7 g/dL (3.4-5.0); ALKALINE PHOSPHATASE 72 Units/L (46-116); ASPARTATE AMINO TRANSFERASE 27 Units/L (15-37); BLOOD UREA NITROGEN 17 mg/dL (7-18); CALCIUM 7.7 mg/dL (8.5-10.1); CARBON DIOXIDE 25.1 mmol/L (21-32); CHLORIDE 98 mmol/L (98-107); COR CA(FOR HYPOALB) 8.7 mg/dL (8.5-10.1); CREATININE 0.83 mg/dL (0.55-1.02); SODIUM 131 mmol/L (136-145); TOTAL PROTEIN 5.8 g/dL (6.4-8.2); eGFR NON BLACK RACES > 60 (>60)
[2019-09-12] MEDS: CITRACAL + VITAMIN D PO SCH (09:19)
[2019-09-12] MEDS: JANUVIA PO SCH (09:19)
[2019-09-12] MEDS: MYLICON TAB 80 MG CHEW PO SCH ×2 (09:19→20:32)
[2019-09-12] MEDS: HEMOCYTE-PLUS PO SCH (09:19)
[2019-09-12] MEDS: ELIQUIS PO SCH ×2 (09:20→20:33)
[2019-09-12] MEDS: ZESTRIL TAB 10 MG PO SCH ×2 (09:21→20:33)
[2019-09-12] MEDS: COLACE CAP 100 MG PO SCH ×2 (09:21→20:32)
[2019-09-12] MEDS: SYNTHROID 50 mcg TAB PO SCH (09:21)
[2019-09-12] MEDS: PROTONIX TAB 40 MG PO SCH (09:22)
[2019-09-12] MEDS: CALAN SR 240 MG PO SCH (09:24)
[2019-09-12] MEDS: LEVEMIR SC SCH ×2 (09:26→21:12)
[2019-09-12] MEDS: HumuLIN R SC PRN (11:15)
[2019-09-12] MEDS ORDERED: GENTAMICIN TOPICAL OINT ONE (17:23)
[2019-09-12] MEDS: GENTAMICIN TOPICAL OINT TOP PRN (17:30)
[2019-09-12] MEDS: LIPITOR TAB 20 MG PO SCH (20:34)
[2019-09-12] MEDS: SNACK - Diabetic Appropriate PO SCH (21:11)
--- NOTE | 2019-09-12 21:19 | PCM.PROG ---
Progress Note - Progress Note for Day of Date of Exam: 09/11/19 - Past Medical Family Social History Past Med/Fam/Surg Hx: No changes since H&P Allergies: Allergies tuberculin,PPD,multi-puncture Allergy (Verified 08/17/18 17:34) - Review of Systems ROS: No change since H&P - Vital Signs and I&O's Vital Signs: Temperature 98.9 F Pulse Rate [Left] 72 Pulse Rate 92 Respiratory Rate 21 Blood Pressure [Left Arm] 167/69 Blood Pressure 165/69 O2 Sat by Pulse Oximetry 98 Intake and Output: Intake & Output 09/10/19 09/11/19 09/12/19 09/13/19 11:59 11:59 11:59 11:59 Intake Total 1482 / 1482 3598 / 3598 2980 / 2980 1788 / 1788 Output Total 500 / 500 2950 / 2950 8725 / 8725 925 / 925 Balance 982 / 982 648 / 648 -5745 / -5745 863 / 863 - Physical Exam Oriented: Normal Eyes: Normal Ear: Normal Nose: Normal Throat: Normal Respiratory: Generalized, Diminished Cardiovascular: Bradycardia : Normal Auscultation: Bowel Sounds: Normal Palpation: Normal Tenderness: Normal Skin: Normal Musculoskeletal: Normal Psychiatric: Normal Mood Description: Calm Speech Pattern: Clear, Appropriate - Laboratory and Diagnostics Result Diagrams: 09/12/19 05:16 09/12/19 05:16 Labs: 09/10/19 00:37 Urine,Catheterized Urine Culture - Final Staphylococcus Aureus Laboratory WBC 6.6 X10^3/uL (3.6-10.0) 09/12/19 05:16 RBC 3.01 X10^6/uL (3.5-5.4) L 09/12/19 05:16 Hgb 9.9 g/dL (12.0-16.0) L 09/12/19 05:16 Hct 27.5 % (36.0-47.0) L 09/12/19 05:16 MCV 91.1 fL (80.0-100.0) 09/12/19 05:16 MCH 32.9 pg (27.0-34.0) 09/12/19 05:16 MCHC 36.1 g/dL (33.0-35.0) H 09/12/19 05:16 RDW 14.7 % (11.6-16.5) 09/12/19 05:16 Plt Count 181 X10^3/uL (150.0-450.0) 09/12/19 05:16 MPV 6.8 fL (7.4-11.0) L 09/12/19 05:16 Neut % (Auto) 61.1 % (42.0-75.0) 09/12/19 05:16 Lymph % (Auto) 19.1 % (21.0-51.0) L 09/12/19 05:16 [place] % (Auto) 18.3 % (0.0-13.0) H 09/12/19 05:16 Eos % (Auto) 0.8 % (0.9-2.9) L 09/12/19 05:16 Baso % (Auto) 0.7 % (0.2-1.0) 09/12/19 05:16 Neut # (Auto) 4.0 x10^3/uL (2.2-4.8) 09/12/19 05:16 Lymph # (Auto) 1.3 X10^3/uL (1.3-2.9) 09/12/19 05:16 [place] # (Auto) 1.2 x10^3/uL (0.3-0.8) H 09/12/19 05:16 Eos # (Auto) 0.1 x10^3/uL (0.0-0.2) 09/12/19 05:16 Baso # (Auto) 0.0 X10^3/uL (0.0-0.1) 09/12/19 05:16 Absolute Nucleated RBC 0.0 /100WBC 09/12/19 05:16 PT 14.9 SECONDS (11.8-14.3) 09/09/19 21:58 INR Target Range - 09/09/19 21:58 INR 1.21 (0.8-1.3) 09/09/19 21:58 APTT 34.4 SECONDS (22.9-36.5) 09/09/19 21:58 PTT Comment - 09/09/19 21:58 Sodium 131 mmol/L (136-145) L 09/12/19 05:16 Corrected Sodium TNP 09/12/19 05:16 Potassium 4.1 mmol/L (3.5-5.1) 09/12/19 05:16 Chloride 98 mmol/L (98-107) 09/12/19 05:16 Carbon Dioxide 25.1 mmol/L (21-32) 09/12/19 05:16 BUN 17 mg/dL (7-18) 09/12/19 05:16 Creatinine 0.83 mg/dL (0.55-1.02) 09/12/19 05:16 Est GFR (MDRD) Af Amer > 60 (>60) 09/12/19 05:16 Est GFR (MDRD) Non-Af > 60 (>60) 09/12/19 05:16 Glucose 107 mg/dL (65-99) H 09/12/19 05:16 POC Glucose (mg/dL) 210 mg/dL (65-99) H 09/12/19 21:04 Calcium 7.7 mg/dL (8.5-10.1) L 09/12/19 05:16 Corrected Calcium 8.7 mg/dL (8.5-10.1) 09/12/19 05:16 Magnesium 2.7 mg/dL (1.7-2.9) 09/09/19 21:58 Total Bilirubin 0.60 mg/dL (0.2-1.0) 09/12/19 05:16 AST 27 Units/L (15-37) 09/12/19 05:16 ALT 22 Units/L (12-78) 09/12/19 05:16 Alkaline Phosphatase 72 Units/L (46-116) 09/12/19 05:16 Creatine Kinase 66 Units/L (26-192) 09/10/19 12:28 CK-MB (CK-2) 2.1 ng/mL (0-4.0) 09/10/19 12:28 CK/CKMB % Calc 3.2 % (<4) 09/10/19 12:28 Troponin I 0.07 ng/mL (0-1.5) 09/10/19 12:28 B-Natriuretic Peptide 751 pg/mL (0-79) H* 09/11/19 05:15 Total Protein 5.8 g/dL (6.4-8.2) L 09/12/19 05:16 Albumin 2.7 g/dL (3.4-5.0) L 09/12/19 05:16 Globulin 3.1 g/dL (2.5-4.5) 09/12/19 05:16 Albumin/Globulin Ratio 0.9 Ratio (1.1-2.1) L 09/12/19 05:16 Triglycerides 105 mg/dL (0-150) 09/10/19 05:08 Cholesterol 81 mg/dL (0-200) 09/10/19 05:08 LDL Cholesterol, Calc 26 mg/dL (0-100) 09/10/19 05:08 HDL Cholesterol 34 mg/dL (40-60) L 09/10/19 05:08 Cholesterol/HDL Ratio 2.4 (0.0-5.0) 09/10/19 05:08 Free T4 1.21 ng/dL (0.76-1.46) 09/11/19 05:15 TSH 3rd Generation 3.919 uIU/mL (0.358-3.74) H 09/11/19 05:15 Specimen Type Catherized urine 09/10/19 00:37 Urine Color Dark yellow (YELLOW) 09/10/19 00:37 Urine Appearance Cloudy (CLEAR) 09/10/19 00:37 Urine pH 5.0 (5.0 - 8.0) 09/10/19 00:37 Ur Specific [place] 1.020 (1.000-1.030) 09/10/19 00:37 Urine Protein 3+ (NEGATIVE) 09/10/19 00:37 Urine Glucose (UA) Negative (NEGATIVE) 09/10/19 00:37 Urine Ketones 1+ (NEGATIVE) 09/10/19 00:37 Urine Occult Blood Negative (NEGATIVE) 09/10/19 00:37 Urine Nitrite Negative (NEGATIVE) 09/10/19 00:37 Urine Bilirubin Negative (NEGATIVE) 09/10/19 00:37 Urine Urobilinogen 1+ (NORMAL) 09/10/19 00:37 Ur Leukocyte Esterase 3+ (NEGATIVE) 09/10/19 00:37 Urine RBC None seen /HPF (0-3) 09/10/19 00:37 Urine WBC Tntc /HPF (0-5) A 09/10/19 00:37 Ur Squamous Epith Cells Rare /HPF (NEGATIVE) 09/10/19 00:37 Amorphous Sediment 3+ /HPF (NEGATIVE) 09/10/19 00:37 Urine Bacteria Trace /HPF (NEGATIVE) 09/10/19 00:37 Ur Culture Indicated? Yes/culture set up 09/10/19 00:37 - Plan (1) Dehydration Status: Acute (2) CHF (congestive heart failure) Status: Chronic Qualifiers: Heart failure chronicity: acute on chronic Plan: IV LASIX X 2 DOSES, CONTINUE TO MONITOR (3) Hypertension Status: Chronic Qualifiers: Hypertension type: essential hypertension Qualified Code(s): I10 - Essential (primary) hypertension Plan: TRANSDERMAL CATAPRES, APRESOLINE, ZESTRIL, VERAPAMIL, CONTINUE TO MONITOR (4) Acute hyponatremia Status: Acute Plan: Continue IVF, will monitor sodium levels. (5) Junctional bradycardia Status: Acute Plan: Holding rate controlling medications. D/c isoproterenol gtt. Continue to monitor. (6) Chronic kidney disease (CKD) Status: Acute Qualifiers: Chronic kidney disease stage: unspecified stage Qualified Code(s): N18.9 - Chronic kidney disease, unspecified
[2019-09-12] MEDS: CIPRO IV 200 MG PREMIX* 200 MG/100 ML BAG IV SCH (22:24)
[2019-09-13 06:20] LABS: BASOPHILS % (AUTO) 0.4 % (0.2-1.0); EOSINOPHILS % (AUTO) 0.4 % (0.9-2.9); HEMATOCRIT 27.3 % (36.0-47.0); HEMOGLOBIN 9.8 g/dL (12.0-16.0); LYMPHOCYTES # (AUTO) 0.8 X10^3/uL (1.3-2.9); LYMPHOCYTES % (AUTO) 9.5 % (21.0-51.0); MEAN CORPUSCULAR HEMOGLOBIN 32.7 pg (27.0-34.0); MEAN CORPUSCULAR VOLUME 90.9 fL (80.0-100.0); MEAN PLATELET VOLUME 6.7 fL (7.4-11.0); MONOCYTES # (AUTO) 1.3 x10^3/uL (0.3-0.8); MONOCYTES % (AUTO) 14.2 % (0.0-13.0); NEUTROPHILS # (AUTO) 6.8 x10^3/uL (2.2-4.8); NEUTROPHILS % (AUTO) 75.5 % (42.0-75.0); PLATELET COUNT 193 X10^3/uL (150.0-450.0); RED BLOOD COUNT 3.01 X10^6/uL (3.5-5.4); RED CELL DISTRIBUTION WIDTH 14.2 % (11.6-16.5)
[2019-09-13 06:35] LABS: ALANINE AMINOTRANSFERASE 24 Units/L (12-78); ALBUMIN 2.4 g/dL (3.4-5.0); ALKALINE PHOSPHATASE 75 Units/L (46-116); ASPARTATE AMINO TRANSFERASE 25 Units/L (15-37); BLOOD UREA NITROGEN 9 mg/dL (7-18); CALCIUM 7.9 mg/dL (8.5-10.1); CHLORIDE 95 mmol/L (98-107); COR CA(FOR HYPOALB) 9.2 mg/dL (8.5-10.1); CREATININE 0.62 mg/dL (0.55-1.02); SODIUM 128 mmol/L (136-145); TOTAL PROTEIN 5.6 g/dL (6.4-8.2); eGFR NON BLACK RACES > 60 (>60)
[2019-09-13] MEDS ORDERED: ZOFRAN INJ 4 MG VIAL ONE (08:04)
[2019-09-13] MEDS: ZOFRAN INJ 4 MG VIAL IVP PRN ×3 (08:07→21:30)
[2019-09-13] MEDS: CIPRO IV 200 MG PREMIX* 200 MG/100 ML BAG IV SCH ×2 (09:33→21:00)
[2019-09-13] MEDS: NS 1000 ML 1,000 ML IV SCH ×3 (09:33→21:00)
[2019-09-13] MEDS: CALAN SR 240 MG PO SCH (09:34)
[2019-09-13] MEDS: MYLICON TAB 80 MG CHEW PO SCH ×2 (09:34→22:11)
[2019-09-13] MEDS: HEMOCYTE-PLUS PO SCH (09:34)
[2019-09-13] MEDS: CITRACAL + VITAMIN D PO SCH (09:34)
[2019-09-13] MEDS: ZESTRIL TAB 10 MG PO SCH ×2 (09:34→21:00)
[2019-09-13] MEDS: APRESOLINE TAB 25 MG PO SCH ×4 (09:34→21:00)
[2019-09-13] MEDS: JANUVIA PO SCH (09:35)
[2019-09-13] MEDS: ELIQUIS PO SCH ×2 (09:35→22:10)
[2019-09-13] MEDS: COLACE CAP 100 MG PO SCH ×2 (09:35→22:10)
[2019-09-13] MEDS: SYNTHROID 50 mcg TAB PO SCH (09:35)
[2019-09-13] MEDS: PROTONIX TAB 40 MG PO SCH (09:35)
[2019-09-13] MEDS: LEVEMIR SC SCH (10:04)
[2019-09-13] MEDS ORDERED: BENADRYL CREAM 2% TOP PRN (15:55)
[2019-09-13] MEDS ORDERED: BENADRYL CREAM 2% ONE (16:02)
[2019-09-13] MEDS: SNACK - Diabetic Appropriate PO SCH (20:00)
--- NOTE | 2019-09-13 20:55 | PCM.PROG ---
Progress Note - Progress Note for Day of Date of Exam: 09/12/19 - Subjective Subjective: WAS ADMITTED FOR DEHYDRATION, ACUTE HYPONATREMIA, CHF, BRADYCARDIA, AND CHRONIC KIDNEY DISEASE. TODAY, SHE IS ALERT AND ORIENTED, LYING IN BED ON MORNING ROUNDS. SHE CONTINUES WITH SHORTNESS OF BREATH AND WEAKNESS TODAY. STAFF REPORTS THAT HER BLOOD PRESSURE HAS CONTINUED TO BE ELEVATED. ON EXAMINATION, HEART IS REGULAR IN RATE AND RHYTHM. BILATERAL LUNGS ARE NOTED WITH DIMINISHED LUNG SOUNDS THROUGHOUT. ABDOMEN IS ROUND, SOFT, AND NON-TENDER WITH NORMAL BOWEL SOUNDS NOTED IN ALL QUADRANTS. HER VITALS THIS MORNING ARE: 98.5-79-26-100%-177/70. LABS WERE OBTAINED. ABNORMAL LAB VALUES INCLUDE THE FOLLOWING: RBC 3.01, HGB 9.9, HCT 27.5, SODIUM 131, GLUCOSE 107, CALCIUM 7.7, TOTAL PROTEIN 5.8, ALBUMIN 2.7. URINE CULTURE IS PENDING. SHE IS CURRENTLY RECEIVING ELIQUIS, HYDRALAZINE 100MG PO TID, ZESTRIL 30MG PO BID, A CATAPRESS PATCH, AND VERAPAMIL 320MG PO DAILY. TODAY, WE WILL DECREASE THE VERAPAMIL TO 240MG PO DAILY AND INCREASE THE HYDRALAZINE TO 100MG PO QID. OTHERWISE, WE WILL FOLLOW UP WITH AM LABS AND CONTINUE TO MONITOR. - Past Medical Family Social History Past Med/Fam/Surg Hx: No changes since H&P Allergies: Allergies tuberculin,PPD,multi-puncture Allergy (Verified 08/17/18 17:34) - Review of Systems ROS: No change since H&P - Vital Signs and I&O's Vital Signs: Temperature 98.7 F Pulse Rate [Left] 72 Pulse Rate 71 Respiratory Rate 25 Blood Pressure [Left Arm] 167/69 Blood Pressure 133/61 O2 Sat by Pulse Oximetry 98 Intake and Output: Intake & Output 09/11/19 09/12/19 09/13/19 09/14/19 11:59 11:59 11:59 11:59 Intake Total 3598 / 3598 2980 / 2980 1788 / 1788 3565 / 3565 Output Total 2950 / 2950 8725 / 8725 3450 / 3450 800 / 800 Balance 648 / 648 -5745 / -5745 -1662 / -1662 2765 / 2765 - Physical Exam Oriented: Normal Eyes: Normal Ear: Normal Nose: Normal Throat: Normal Respiratory: Generalized, Diminished Cardiovascular: Bradycardia : Normal Auscultation: Bowel Sounds: Normal Tenderness: Normal Skin: Normal Musculoskeletal: Normal Psychiatric: Normal Mood Description: Calm Speech Pattern: Clear, Appropriate - Laboratory and Diagnostics Result Diagrams: 09/13/19 05:13 09/13/19 18:00 Labs: 09/10/19 00:37 Urine,Catheterized Urine Culture - Final Staphylococcus Aureus Laboratory WBC 9.0 X10^3/uL (3.6-10.0) 09/13/19 05:13 RBC 3.01 X10^6/uL (3.5-5.4) L 09/13/19 05:13 Hgb 9.8 g/dL (12.0-16.0) L 09/13/19 05:13 Hct 27.3 % (36.0-47.0) L 09/13/19 05:13 MCV 90.9 fL (80.0-100.0) 09/13/19 05:13 MCH 32.7 pg (27.0-34.0) 09/13/19 05:13 MCHC 36.0 g/dL (33.0-35.0) H 09/13/19 05:13 RDW 14.2 % (11.6-16.5) 09/13/19 05:13 Plt Count 193 X10^3/uL (150.0-450.0) 09/13/19 05:13 MPV 6.7 fL (7.4-11.0) L 09/13/19 05:13 Neut % (Auto) 75.5 % (42.0-75.0) H 09/13/19 05:13 Lymph % (Auto) 9.5 % (21.0-51.0) L 09/13/19 05:13 [place] % (Auto) 14.2 % (0.0-13.0) H 09/13/19 05:13 Eos % (Auto) 0.4 % (0.9-2.9) L 09/13/19 05:13 Baso % (Auto) 0.4 % (0.2-1.0) 09/13/19 05:13 Neut # (Auto) 6.8 x10^3/uL (2.2-4.8) H 09/13/19 05:13 Lymph # (Auto) 0.8 X10^3/uL (1.3-2.9) L 09/13/19 05:13 [place] # (Auto) 1.3 x10^3/uL (0.3-0.8) H 09/13/19 05:13 Eos # (Auto) 0.0 x10^3/uL (0.0-0.2) 09/13/19 05:13 Baso # (Auto) 0.0 X10^3/uL (0.0-0.1) 09/13/19 05:13 Absolute Nucleated RBC 0.0 /100WBC 09/13/19 05:13 PT 14.9 SECONDS (11.8-14.3) 09/09/19 21:58 INR Target Range - 09/09/19 21:58 INR 1.21 (0.8-1.3) 09/09/19 21:58 APTT 34.4 SECONDS (22.9-36.5) 09/09/19 21:58 PTT Comment - 09/09/19 21:58 Sodium 128 mmol/L (136-145) L 09/13/19 05:13 Corrected Sodium TNP 09/13/19 05:13 Potassium 3.8 mmol/L (3.5-5.1) 09/13/19 18:00 Chloride 95 mmol/L (98-107) L 09/13/19 05:13 Carbon Dioxide 26.0 mmol/L (21-32) 09/13/19 05:13 BUN 9 mg/dL (7-18) 09/13/19 05:13 Creatinine 0.62 mg/dL (0.55-1.02) 09/13/19 05:13 Est GFR (MDRD) Af Amer > 60 (>60) 09/13/19 05:13 Est GFR (MDRD) Non-Af > 60 (>60) 09/13/19 05:13 Glucose 89 mg/dL (65-99) 09/13/19 05:13 POC Glucose (mg/dL) 121 mg/dL (65-99) H 09/13/19 20:48 Calcium 7.9 mg/dL (8.5-10.1) L 09/13/19 05:13 Corrected Calcium 9.2 mg/dL (8.5-10.1) 09/13/19 05:13 Magnesium 2.7 mg/dL (1.7-2.9) 09/09/19 21:58 Total Bilirubin 0.80 mg/dL (0.2-1.0) 09/13/19 05:13 AST 25 Units/L (15-37) 09/13/19 05:13 ALT 24 Units/L (12-78) 09/13/19 05:13 Alkaline Phosphatase 75 Units/L (46-116) 09/13/19 05:13 Creatine Kinase 66 Units/L (26-192) 09/10/19 12:28 CK-MB (CK-2) 2.1 ng/mL (0-4.0) 09/10/19 12:28 CK/CKMB % Calc 3.2 % (<4) 09/10/19 12:28 Troponin I 0.07 ng/mL (0-1.5) 09/10/19 12:28 B-Natriuretic Peptide 751 pg/mL (0-79) H* 09/11/19 05:15 Total Protein 5.6 g/dL (6.4-8.2) L 09/13/19 05:13 Albumin 2.4 g/dL (3.4-5.0) L 09/13/19 05:13 Globulin 3.2 g/dL (2.5-4.5) 09/13/19 05:13 Albumin/Globulin Ratio 0.8 Ratio (1.1-2.1) L 09/13/19 05:13 Triglycerides 105 mg/dL (0-150) 09/10/19 05:08 Cholesterol 81 mg/dL (0-200) 09/10/19 05:08 LDL Cholesterol, Calc 26 mg/dL (0-100) 09/10/19 05:08 HDL Cholesterol 34 mg/dL (40-60) L 09/10/19 05:08 Cholesterol/HDL Ratio 2.4 (0.0-5.0) 09/10/19 05:08 Free T4 1.21 ng/dL (0.76-1.46) 09/11/19 05:15 TSH 3rd Generation 3.919 uIU/mL (0.358-3.74) H 09/11/19 05:15 Specimen Type Catherized urine 09/10/19 00:37 Urine Color Dark yellow (YELLOW) 09/10/19 00:37 Urine Appearance Cloudy (CLEAR) 09/10/19 00:37 Urine pH 5.0 (5.0 - 8.0) 09/10/19 00:37 Ur Specific [place] 1.020 (1.000-1.030) 09/10/19 00:37 Urine Protein 3+ (NEGATIVE) 09/10/19 00:37 Urine Glucose (UA) Negative (NEGATIVE) 09/10/19 00:37 Urine Ketones 1+ (NEGATIVE) 09/10/19 00:37 Urine Occult Blood Negative (NEGATIVE) 09/10/19 00:37 Urine Nitrite Negative (NEGATIVE) 09/10/19 00:37 Urine Bilirubin Negative (NEGATIVE) 09/10/19 00:37 Urine Urobilinogen 1+ (NORMAL) 09/10/19 00:37 Ur Leukocyte Esterase 3+ (NEGATIVE) 09/10/19 00:37 Urine RBC None seen /HPF (0-3) 09/10/19 00:37 Urine WBC Tntc /HPF (0-5) A 09/10/19 00:37 Ur Squamous Epith Cells Rare /HPF (NEGATIVE) 09/10/19 00:37 Amorphous Sediment 3+ /HPF (NEGATIVE) 09/10/19 00:37 Urine Bacteria Trace /HPF (NEGATIVE) 09/10/19 00:37 Ur Culture Indicated? Yes/culture set up 09/10/19 00:37 - Plan (1) Dehydration Status: Acute (2) CHF (congestive heart failure) Status: Chronic Qualifiers: Heart failure chronicity: acute on chronic Plan: CONTINUE HOEM MEDS, CONTINUE TO MONITOR (3) Hypertension Status: Chronic Qualifiers: Hypertension type: essential hypertension Qualified Code(s): I10 - Essential (primary) hypertension Plan: TRANSDERMAL CATAPRES, APRESOLINE, ZESTRIL, VERAPAMIL, CONTINUE TO MONITOR (4) Acute hyponatremia Status: Acute Plan: Continue IVF, will monitor sodium levels. (5) Junctional bradycardia Status: Acute Plan: Holding rate controlling medications. D/c isoproterenol gtt. Continue to monitor. (6) Chronic kidney disease (CKD) Status: Acute Qualifiers: Chronic kidney disease stage: unspecified stage Qualified Code(s): N18.9 - Chronic kidney disease, unspecified
[2019-09-13] MEDS ORDERED: LEVEMIR SC SCH (21:00)
[2019-09-13] MEDS: LIPITOR TAB 20 MG PO SCH (21:00)
--- NOTE | 2019-09-13 21:00 | PCM.PROG ---
Progress Note - Progress Note for Day of Date of Exam: 09/13/19 - Subjective Subjective: WAS ADMITTED FOR DEHYDRATION, ACUTE HYPONATREMIA, CHF, BRADYCARDIA, AND CHRONIC KIDNEY DISEASE. TODAY, SHE IS ALERT AND ORIENTED, LYING IN BED ON MORNING ROUNDS. SHE CONTINUES WITH SHORTNESS OF BREATH AND WEAKNESS TODAY. HER BLOOD PRESSURE HAS IMPROVED WITH CHANGES MADE TO MEDICATIONS. ON EXAMINATION, HEART IS REGULAR IN RATE AND RHYTHM. BILATERAL LUNGS ARE NOTED WITH DIMINISHED LUNG SOUNDS THROUGHOUT. ABDOMEN IS ROUND, SOFT, AND NON-TENDER WITH NORMAL BOWEL SOUNDS NOTED IN ALL QUADRANTS. HER VITALS THIS MORNING ARE: 98.5-81-26-95%-132/63. LABS WERE OBTAINED. ABNORMAL LAB VALUES INCLUDE THE FOLLOWING: RBC 3.01, HGB 9.8, HCT 27.3, SODIUM 128, CHLORIDE 95, CALCIUM 7.9, TOTAL PROTEIN 5.6, ALBUMIN 2.4. URINE CULTURE REPORTS GROWTH OF STAPHYLOCOCCUS AUREUS. SHE WAS STARTED ON CIPRO 200MG IV BID. SHE IS CURRENTLY RECEIVING ELIQUIS, HYDRALAZINE 100MG PO QID, ZESTRIL 30MG PO BID, A CATAPRESS PATCH, AND VERAPAMIL 240 MG PO DAILY. WE WILL CONTINUE WITH CURRENT PLAN OF CARE TODAY. OTHERWISE, WE WILL FOLLOW UP WITH AM LABS AND CONTINUE TO MONITOR. - Past Medical Family Social History Past Med/Fam/Surg Hx: No changes since H&P Allergies: Allergies tuberculin,PPD,multi-puncture Allergy (Verified 08/17/18 17:34) - Review of Systems ROS: No change since H&P - Vital Signs and I&O's Vital Signs: Temperature 98.7 F Pulse Rate [Left] 72 Pulse Rate 71 Respiratory Rate 25 Blood Pressure [Left Arm] 167/69 Blood Pressure 133/61 O2 Sat by Pulse Oximetry 98 Intake and Output: Intake & Output 09/11/19 09/12/19 09/13/19 09/14/19 11:59 11:59 11:59 11:59 Intake Total 3598 / 3598 2980 / 2980 1788 / 1788 3565 / 3565 Output Total 2950 / 2950 8725 / 8725 3450 / 3450 800 / 800 Balance 648 / 648 -5745 / -5745 -1662 / -1662 2765 / 2765 - Physical Exam Oriented: Normal Eyes: Normal Ear: Normal Nose: Normal Throat: Normal Respiratory: Generalized, Diminished Cardiovascular: Normal : Normal Auscultation: Bowel Sounds: Normal Palpation: Normal Tenderness: Normal Skin: Normal Musculoskeletal: Normal Psychiatric: Normal Mood Description: Calm Speech Pattern: Clear, Appropriate - Laboratory and Diagnostics Result Diagrams: 09/13/19 05:13 09/13/19 18:00 Labs: 09/10/19 00:37 Urine,Catheterized Urine Culture - Final Staphylococcus Aureus Laboratory WBC 9.0 X10^3/uL (3.6-10.0) 09/13/19 05:13 RBC 3.01 X10^6/uL (3.5-5.4) L 09/13/19 05:13 Hgb 9.8 g/dL (12.0-16.0) L 09/13/19 05:13 Hct 27.3 % (36.0-47.0) L 09/13/19 05:13 MCV 90.9 fL (80.0-100.0) 09/13/19 05:13 MCH 32.7 pg (27.0-34.0) 09/13/19 05:13 MCHC 36.0 g/dL (33.0-35.0) H 09/13/19 05:13 RDW 14.2 % (11.6-16.5) 09/13/19 05:13 Plt Count 193 X10^3/uL (150.0-450.0) 09/13/19 05:13 MPV 6.7 fL (7.4-11.0) L 09/13/19 05:13 Neut % (Auto) 75.5 % (42.0-75.0) H 09/13/19 05:13 Lymph % (Auto) 9.5 % (21.0-51.0) L 09/13/19 05:13 [place] % (Auto) 14.2 % (0.0-13.0) H 09/13/19 05:13 Eos % (Auto) 0.4 % (0.9-2.9) L 09/13/19 05:13 Baso % (Auto) 0.4 % (0.2-1.0) 09/13/19 05:13 Neut # (Auto) 6.8 x10^3/uL (2.2-4.8) H 09/13/19 05:13 Lymph # (Auto) 0.8 X10^3/uL (1.3-2.9) L 09/13/19 05:13 [place] # (Auto) 1.3 x10^3/uL (0.3-0.8) H 09/13/19 05:13 Eos # (Auto) 0.0 x10^3/uL (0.0-0.2) 09/13/19 05:13 Baso # (Auto) 0.0 X10^3/uL (0.0-0.1) 09/13/19 05:13 Absolute Nucleated RBC 0.0 /100WBC 09/13/19 05:13 PT 14.9 SECONDS (11.8-14.3) 09/09/19 21:58 INR Target Range - 09/09/19 21:58 INR 1.21 (0.8-1.3) 09/09/19 21:58 APTT 34.4 SECONDS (22.9-36.5) 09/09/19 21:58 PTT Comment - 09/09/19 21:58 Sodium 128 mmol/L (136-145) L 09/13/19 05:13 Corrected Sodium TNP 09/13/19 05:13 Potassium 3.8 mmol/L (3.5-5.1) 09/13/19 18:00 Chloride 95 mmol/L (98-107) L 09/13/19 05:13 Carbon Dioxide 26.0 mmol/L (21-32) 09/13/19 05:13 BUN 9 mg/dL (7-18) 09/13/19 05:13 Creatinine 0.62 mg/dL (0.55-1.02) 09/13/19 05:13 Est GFR (MDRD) Af Amer > 60 (>60) 09/13/19 05:13 Est GFR (MDRD) Non-Af > 60 (>60) 09/13/19 05:13 Glucose 89 mg/dL (65-99) 09/13/19 05:13 POC Glucose (mg/dL) 121 mg/dL (65-99) H 09/13/19 20:48 Calcium 7.9 mg/dL (8.5-10.1) L 09/13/19 05:13 Corrected Calcium 9.2 mg/dL (8.5-10.1) 09/13/19 05:13 Magnesium 2.7 mg/dL (1.7-2.9) 09/09/19 21:58 Total Bilirubin 0.80 mg/dL (0.2-1.0) 09/13/19 05:13 AST 25 Units/L (15-37) 09/13/19 05:13 ALT 24 Units/L (12-78) 09/13/19 05:13 Alkaline Phosphatase 75 Units/L (46-116) 09/13/19 05:13 Creatine Kinase 66 Units/L (26-192) 09/10/19 12:28 CK-MB (CK-2) 2.1 ng/mL (0-4.0) 09/10/19 12:28 CK/CKMB % Calc 3.2 % (<4) 09/10/19 12:28 Troponin I 0.07 ng/mL (0-1.5) 09/10/19 12:28 B-Natriuretic Peptide 751 pg/mL (0-79) H* 09/11/19 05:15 Total Protein 5.6 g/dL (6.4-8.2) L 09/13/19 05:13 Albumin 2.4 g/dL (3.4-5.0) L 09/13/19 05:13 Globulin 3.2 g/dL (2.5-4.5) 09/13/19 05:13 Albumin/Globulin Ratio 0.8 Ratio (1.1-2.1) L 09/13/19 05:13 Triglycerides 105 mg/dL (0-150) 09/10/19 05:08 Cholesterol 81 mg/dL (0-200) 09/10/19 05:08 LDL Cholesterol, Calc 26 mg/dL (0-100) 09/10/19 05:08 HDL Cholesterol 34 mg/dL (40-60) L 09/10/19 05:08 Cholesterol/HDL Ratio 2.4 (0.0-5.0) 09/10/19 05:08 Free T4 1.21 ng/dL (0.76-1.46) 09/11/19 05:15 TSH 3rd Generation 3.919 uIU/mL (0.358-3.74) H 09/11/19 05:15 Specimen Type Catherized urine 09/10/19 00:37 Urine Color Dark yellow (YELLOW) 09/10/19 00:37 Urine Appearance Cloudy (CLEAR) 09/10/19 00:37 Urine pH 5.0 (5.0 - 8.0) 09/10/19 00:37 Ur Specific [place] 1.020 (1.000-1.030) 09/10/19 00:37 Urine Protein 3+ (NEGATIVE) 09/10/19 00:37 Urine Glucose (UA) Negative (NEGATIVE) 09/10/19 00:37 Urine Ketones 1+ (NEGATIVE) 09/10/19 00:37 Urine Occult Blood Negative (NEGATIVE) 09/10/19 00:37 Urine Nitrite Negative (NEGATIVE) 09/10/19 00:37 Urine Bilirubin Negative (NEGATIVE) 09/10/19 00:37 Urine Urobilinogen 1+ (NORMAL) 09/10/19 00:37 Ur Leukocyte Esterase 3+ (NEGATIVE) 09/10/19 00:37 Urine RBC None seen /HPF (0-3) 09/10/19 00:37 Urine WBC Tntc /HPF (0-5) A 09/10/19 00:37 Ur Squamous Epith Cells Rare /HPF (NEGATIVE) 09/10/19 00:37 Amorphous Sediment 3+ /HPF (NEGATIVE) 09/10/19 00:37 Urine Bacteria Trace /HPF (NEGATIVE) 09/10/19 00:37 Ur Culture Indicated? Yes/culture set up 09/10/19 00:37 - Plan (1) Dehydration Status: Acute (2) CHF (congestive heart failure) Status: Chronic Qualifiers: Heart failure chronicity: acute on chronic Plan: CONTINUE HOEM MEDS, CONTINUE TO MONITOR (3) Hypertension Status: Chronic Qualifiers: Hypertension type: essential hypertension Qualified Code(s): I10 - Essential (primary) hypertension Plan: TRANSDERMAL CATAPRES, APRESOLINE, ZESTRIL, VERAPAMIL, CONTINUE TO MONITOR (4) Acute hyponatremia Status: Acute Plan: Continue IVF, will monitor sodium levels. (5) Junctional bradycardia Status: Acute Plan: Holding rate controlling medications. D/c isoproterenol gtt. Continue to monitor. (6) Chronic kidney disease (CKD) Status: Acute Qualifiers: Chronic kidney disease stage: unspecified stage Qualified Code(s): N18.9 - Chronic kidney disease, unspecified (7) Urinary tract infection Status: Acute Qualifiers: Urinary tract infection type: acute cystitis Hematuria presence: without hematuria Qualified Code(s): N30.00 - Acute cystitis without hematuria Plan: CIPRO 200MG IV Q12H, CONTINUE TO MONITOR
[2019-09-13] MEDS: GENTAMICIN TOPICAL OINT TOP PRN (22:00)
[2019-09-14] MEDS: NS 1000 ML 1,000 ML IV SCH ×2 (01:30→09:33)
--- NOTE | 2019-09-14 06:14 | RAD ---
HISTORY: Shortness of breathStudy: Chest AP portableComparison: 09/09/2019Findings:The heart is enlarged. The aorta is calcified. The manisha are prominent and indistinct and there appears to be interstitial edema and early alveolar edema left greater than right. This could be on the basis of cardiogenic or noncardiogenic failure. Left pleural effusion is likely present. Bony thorax is unremarkable.IMPRESSION: Cardiomegaly with congestive heart failure as described above and likely a small left pleural effusionReported By:
[2019-09-14 06:42] LABS: BASOPHILS % (AUTO) 0.7 % (0.2-1.0); EOSINOPHILS # (AUTO) 0.2 x10^3/uL (0.0-0.2); EOSINOPHILS % (AUTO) 3.9 % (0.9-2.9); HEMATOCRIT 27.3 % (36.0-47.0); HEMOGLOBIN 9.8 g/dL (12.0-16.0); LYMPHOCYTES # (AUTO) 0.8 X10^3/uL (1.3-2.9); LYMPHOCYTES % (AUTO) 13.9 % (21.0-51.0); MEAN CORPUSCULAR HEMOGLOBIN 32.7 pg (27.0-34.0); MEAN CORPUSCULAR HGB CONC 35.8 g/dL (33.0-35.0); MEAN CORPUSCULAR VOLUME 91.5 fL (80.0-100.0); MEAN PLATELET VOLUME 6.9 fL (7.4-11.0); MONOCYTES # (AUTO) 0.9 x10^3/uL (0.3-0.8); MONOCYTES % (AUTO) 15.4 % (0.0-13.0); NEUTROPHILS # (AUTO) 3.8 x10^3/uL (2.2-4.8); NEUTROPHILS % (AUTO) 66.1 % (42.0-75.0); PLATELET COUNT 196 X10^3/uL (150.0-450.0); RED BLOOD COUNT 2.98 X10^6/uL (3.5-5.4); WHITE BLOOD COUNT 5.8 X10^3/uL (3.6-10.0)
[2019-09-14 07:05] LABS: ALANINE AMINOTRANSFERASE 20 Units/L (12-78); ALBUMIN 2.3 g/dL (3.4-5.0); ALKALINE PHOSPHATASE 76 Units/L (46-116); ASPARTATE AMINO TRANSFERASE 16 Units/L (15-37); BLOOD UREA NITROGEN 8 mg/dL (7-18); CALCIUM 7.8 mg/dL (8.5-10.1); CARBON DIOXIDE 25.9 mmol/L (21-32); CHLORIDE 101 mmol/L (98-107); COR CA(FOR HYPOALB) 9.2 mg/dL (8.5-10.1); CREATININE 0.74 mg/dL (0.55-1.02); SODIUM 132 mmol/L (136-145); TOTAL PROTEIN 5.4 g/dL (6.4-8.2); eGFR NON BLACK RACES > 60 (>60)
[2019-09-14] MEDS: APRESOLINE TAB 25 MG PO SCH ×2 (08:50→13:23)
[2019-09-14] MEDS: ZESTRIL TAB 10 MG PO SCH (08:51)
[2019-09-14] MEDS: CALAN SR 240 MG PO SCH (09:30)
[2019-09-14] MEDS: CIPRO IV 200 MG PREMIX* 200 MG/100 ML BAG IV SCH (09:31)
[2019-09-14] MEDS: COLACE CAP 100 MG PO SCH (09:31)
[2019-09-14] MEDS: CITRACAL + VITAMIN D PO SCH (09:31)
[2019-09-14] MEDS: ELIQUIS PO SCH (09:31)
[2019-09-14] MEDS: HEMOCYTE-PLUS PO SCH (09:31)
[2019-09-14] MEDS: MYLICON TAB 80 MG CHEW PO SCH (09:33)
[2019-09-14] MEDS: JANUVIA PO SCH (09:33)
[2019-09-14] MEDS: LEVEMIR SC SCH (09:33)
[2019-09-14] MEDS: PROTONIX TAB 40 MG PO SCH (09:34)
[2019-09-14] MEDS: SYNTHROID 50 mcg TAB PO SCH (09:34)
[2019-09-14] MEDS: HumuLIN R SC PRN (11:37)
[2019-09-14 13:28] VITALS: BP 166/72
== END 2019-09-14 13:40 | DRG 292 ==
LOC: ER 20:51 → ICU 09-10 01:20
PROVIDERS: ADMIT Family Medicine; ATTEND Internal Medicine
DX: B95.61 Methicillin susceptible Staphylococcus aureus infection as the cause of diseases classified elsewhere; E03.8 Other specified hypothyroidism; N30.00 Acute cystitis without hematuria; M25.512 Pain in left shoulder; E78.2 Mixed hyperlipidemia; R51 Headache; J90 Pleural effusion, not elsewhere classified; R94.31 Abnormal electrocardiogram [ECG] [EKG]; E87.5 Hyperkalemia; S22.060A Wedge compression fracture of T7-T8 vertebra, initial encounter for closed fracture; E87.1 Hypo-osmolality and hyponatremia; E11.22 Type 2 diabetes mellitus with diabetic chronic kidney disease; R06.02 Shortness of breath; I13.0 Hypertensive heart and chronic kidney disease with heart failure and stage 1 through stage 4 chronic kidney disease, or unspecified chronic kidney disease; R60.1 Generalized edema; E11.65 Type 2 diabetes mellitus with hyperglycemia; R00.1 Bradycardia, unspecified; W18.39XA Other fall on same level, initial encounter; R26.89 Other abnormalities of gait and mobility; R07.89 Other chest pain; I25.10 Atherosclerotic heart disease of native coronary artery without angina pectoris; I50.9 Heart failure, unspecified; N18.4 Chronic kidney disease, stage 4 (severe); K21.9 Gastro-esophageal reflux disease without esophagitis
CPT/HCPCS: 36415; 51702; 70450; 71010; 71045; 72128; 73030; 74176; 80048; 80053; 80061; 81001; 82550; 82553; 83735; 83880; 84132; 84439; 84443; 84484; 85025; 85610; 85730; 87086; 87088; 87186; 93005; 93306; 94760; 96365; 96367; 96374; 96375; 97110; 97112; 97162; 97166; 97535; 99285; A4216; A4222; C9113; J0461; J0744; J1815; J1940; J2270; J2405; J7030; J7050; J7131

== ENCOUNTER 2019-11-20 08:39 | Inpatient (IN) ==
[2019-11-20 08:53] VITALS: BMI 22.6
[2019-11-20] MEDS ORDERED: NS 1000 ML 1,000 ML ONE (08:54)
[2019-11-20] MEDS ORDERED: NS 1000 ML 1,000 ML IV SCH (09:00)
--- NOTE | 2019-11-20 09:00 | DR.GENAD ---
HPI Time Seen Time Seen by Provider: 11/20/19 08:44 PCP Primary Care Physician: Alan HPI Comment HPI Comment: lab test shows sodium 118 Complaint/Symptoms Chief Complaint Doctors Comments: [facility] showed a Na+ of 118. She is asymptomatic, though I suspect some dementia and possible inability to recognize symptoms. Self Treatment fo Chief Complaint: none. Sent here by Dr. Phillips when [facility] result. 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 Family History Family Medical History: Diabetes Mellitus, [place], Coronary Artery Disease and Sudden Cardiac Social History Does patient currently use any type of tobacco product: No Have you used tobacco products in the last 12 months: No Alcohol Use: None Do you use any recreational Drugs:: No Lives Where: [facility] infectious screening In the last 2 months have you had wt loss of >10#?: NO Have you traveled outside the country in the last 6 months?: No Isolation: Standard ROS Review of Systems Constitutional: No Symptoms Reported Eyes: No Symptoms Reported Respiratoy: No Symptoms Reported Cardiovascular: No Symptoms Reported Gastrointestinal/Abdominal: No Symptoms Reported Genitourinary: No Symptoms Reported Neurological: No Symptoms Reported Musculoskeletal: No Symptoms Reported All Other Systems: Reviewed and Negative PE Vital Signs Vitals: Temperature 98.1 F Pulse Rate 82 Respiratory Rate 18 Blood Pressure [Left Arm] 147/74 Blood Pressure 151/69 O2 Sat by Pulse Oximetry 98 General Limitations: No Limitations General Appearance: Alert and In No Apparent Distress Eyes Eye exam: Normal Appearance, PERRL and EOMI; negative Scleral Icterus ENT ENT Exam: Mucous Membranes Dry Mouth Exam: Normal Inspection Throat Exam: Normal Inspection Neck Neck Exam: Normal Inspection and Full ROM; negative Lymphadenopathy Respiratory Respiratory Exam: Normal Lung Sounds Bilat Cardiovascular Cardiovascular Exam: Regular Rate and Normal Rhythm Abdominal Exam Abdominal Exam: Normal Inspection and Soft; negative Tenderness Extremities Extremities Exam: Full ROM and Other (swollen dorsum of hand); negative Edema and Calf Tenderness Back Back Exam: Normal Inspection and (L) CVA Tenderness; negative (R) CVA Tenderness Neurologic Neurological Exam: Alert and Oriented X3 Psychiatric Psychiatric Exam: Normal Affect Skin Skin Exam: Warm and Normal Color MDM Differential Diagnosis Differential Diagnosis: hyponatremia: prerenal vs acute tubular necrosis COURSE Treatment Treatment: IV fluids Consultation Consultation Comments: admit [facility] Labs Reviewed Laboratory Results Reviewed?: Yes Laboratory: Calculated Osmolality 259 mOsm/kg (285-295) L 11/20/19 05:17 TSH 3rd Generation 4.458 uIU/mL (0.358-3.74) H 11/20/19 05:17 Ur Random Sodium 21 mmol/L (40-220) L 11/20/19 11:00 Urine Creatinine 5.91 mg/dL (29-226) L 11/20/19 11:00 Other Results Comments: [facility] show Na+ 118 (was 133 on 11/13), BUN 43 (was 13), creatinine 1.47 (was 0.74), GFR 36 (was >60). Lab in ED shows very low serum osmolality (calculated) of 259. TSH high at 4.58 (has been steadily increasing since August). Pt on synthroid. XRAY XRAY Interpreted by: Radiologist X-ray Results: Nothing acute, no fx EKG Rate: 88 [place]: Normal Rhythm: NSR, PACs and PVCs Block: None ST: Normal Opioid Opioid Risk Tool Age (Marcos box if 16-45): No History of Preadolescent Sexual Abuse: No Total: 0 Total Score Risk Category: Low Risk Copyright: Tadeo CHAHAL predicting aberrant behaviors Instructions Forms: Excuse From Work Patient Portal ADDITIONAL NOTES Additional Notes Additional Notes: Pt admitted. Diagnosis: severe hypotonic hyponatremia, acute kidney injury, hypothyroidism, volume depletion
--- NOTE | 2019-11-20 10:32 | RAD ---
HISTORYSwelling dorsum of handSTUDYHAND, LEFT three viewsCOMPARISONNoneFINDINGSThere is no evidence for acute bone or acute joint abnormality. No fracture, lytic, or blastic lesion is identified. No erosive arthritis is identified. There is a flexion deformity at the 5th PIP joint. There is minimal dorsal soft tissue swelling at the level of the carpometacarpal joints.IMPRESSIONNo fractures identifiedMinimal soft tissue swelling over the dorsum of the hand at the carpometacarpal joint levelFlexion deformity at the 5th PIP jointElectronically signed by: VICTORIA MAN (Nov 20, 2019 10:31:39)
[2019-11-20 11:08] LABS: BILIRUBIN,URINE NEGATIVE (NEGATIVE); BLOOD/HEMOGLOBIN,URINE NEGATIVE (NEGATIVE); GLUCOSE, URINE NEGATIVE (NEGATIVE); KETONES,URINE NEGATIVE (NEGATIVE); LEUKOCYTE ESTERASE ,URINE NEGATIVE (NEGATIVE); NITRITES,URINE NEGATIVE (NEGATIVE); PROTEIN,URINE 1+ (NEGATIVE); UROBILINOGEN,URINE NORMAL (NORMAL)
[2019-11-20 11:18] LABS: CREATININE,URINE 5.91 mg/dL (29-226)
[2019-11-20 11:22] LABS: SODIUM,URINE 21 mmol/L (40-220)
[2019-11-20 11:28] LABS: APPEARANCE,URINE HAZY (CLEAR); COLOR,URINE YELLOW (YELLOW)
[2019-11-20 11:29] LABS: BACTERIA,URINE NEGATIVE /HPF (NEGATIVE); MUCUS,URINE FEW /HPF (NEGATIVE); RBC,URINE NONE SEEN /HPF (0-3); SQUAMOUS EPITHELIAL CELL,UR NEGATIVE /HPF (NEGATIVE)
[2019-11-20] MEDS: NS 1000 ML 1,000 ML IV SCH (15:54)
[2019-11-20] MEDS: APRESOLINE TAB 25 MG PO SCH ×3 (16:27→20:36)
[2019-11-20] MEDS: ARTIFICIAL TEARS DROPS EACHEYE SCH ×2 (16:28→22:38)
[2019-11-20] MEDS: HumuLIN R SUBCUT SCH ×3 (16:47→20:39)
[2019-11-20] MEDS ORDERED: ZESTRIL TAB 20 MG ONE (19:40)
[2019-11-20] MEDS: MYLICON TAB 80 MG CHEW PO SCH (20:37)
[2019-11-20] MEDS: LIPITOR TAB 20 MG PO SCH (20:37)
[2019-11-20] MEDS: ZESTRIL TAB 20 MG PO SCH (20:37)
[2019-11-20] MEDS: TRAVATAN Z EACHEYE SCH (20:38)
[2019-11-20] MEDS: ULTRAM PO PRN (20:40)
[2019-11-21] MEDS: NS 1000 ML 1,000 ML IV SCH ×3 (02:46→16:42)
[2019-11-21] MEDS: ULTRAM PO PRN ×2 (03:10→20:52)
[2019-11-21] MEDS: ARTIFICIAL TEARS DROPS EACHEYE SCH ×3 (05:04→21:01)
[2019-11-21] MEDS: APRESOLINE TAB 25 MG PO SCH ×5 (05:09→20:51)
[2019-11-21 05:27] LABS: BASOPHILS # (AUTO) 0.1 X10^3/uL (0.0-0.1); BASOPHILS % (AUTO) 0.9 % (0.2-1.0); EOSINOPHILS # (AUTO) 0.1 x10^3/uL (0.0-0.2); HEMATOCRIT 32.8 % (36.0-47.0); HEMOGLOBIN 11.7 g/dL (12.0-16.0); LYMPHOCYTES # (AUTO) 1.3 X10^3/uL (1.3-2.9); LYMPHOCYTES % (AUTO) 19.3 % (21.0-51.0); MEAN CORPUSCULAR HEMOGLOBIN 32.4 pg (27.0-34.0); MEAN CORPUSCULAR HGB CONC 35.5 g/dL (33.0-35.0); MEAN CORPUSCULAR VOLUME 91.3 fL (80.0-100.0); MEAN PLATELET VOLUME 7.1 fL (7.4-11.0); MONOCYTES # (AUTO) 1.1 x10^3/uL (0.3-0.8); MONOCYTES % (AUTO) 15.8 % (0.0-13.0); NEUTROPHILS # (AUTO) 4.3 x10^3/uL (2.2-4.8); PLATELET COUNT 213 X10^3/uL (150.0-450.0); RED BLOOD COUNT 3.59 X10^6/uL (3.5-5.4); RED CELL DISTRIBUTION WIDTH 13.8 % (11.6-16.5)
[2019-11-21 05:34] LABS: ALANINE AMINOTRANSFERASE 30 Units/L (12-78); ALBUMIN 3.2 g/dL (3.4-5.0); ALKALINE PHOSPHATASE 85 Units/L (46-116); ASPARTATE AMINO TRANSFERASE 25 Units/L (15-37); BLOOD UREA NITROGEN 23 mg/dL (7-18); CALCIUM 8.3 mg/dL (8.5-10.1); CARBON DIOXIDE 25.8 mmol/L (21-32); CHLORIDE 98 mmol/L (98-107); CREATININE 0.77 mg/dL (0.55-1.02); SODIUM 132 mmol/L (136-145); TOTAL PROTEIN 6.4 g/dL (6.4-8.2); eGFR NON BLACK RACES > 60 (>60)
[2019-11-21 05:35] LABS: COR CA(FOR HYPOALB) 8.9 mg/dL (8.5-10.1)
[2019-11-21] MEDS ORDERED: ZESTRIL TAB 20 MG ONE ×2 (05:58→19:35)
[2019-11-21] MEDS: ZESTRIL TAB 20 MG PO SCH ×3 (05:59→20:50)
[2019-11-21] MEDS: HumuLIN R SUBCUT SCH ×3 (06:12→16:49)
[2019-11-21] MEDS ORDERED: NUT TX GLUC INTOL LAC FREE SOY PO SCH (09:00)
[2019-11-21] MEDS ORDERED: PHARMACY CONSULT LTC MEDICATIONS XX SCH (09:00)
[2019-11-21] MEDS ORDERED: QUESTRAN POWDER FOR ORAL SUSP PO SCH (09:00)
[2019-11-21] MEDS: VITAMIN C PO SCH ×2 (09:34→20:50)
[2019-11-21] MEDS: JANUVIA PO SCH (09:35)
[2019-11-21] MEDS: PROTONIX TAB 40 MG PO SCH (09:35)
[2019-11-21] MEDS: CALAN SR 240 MG PO SCH (09:36)
[2019-11-21] MEDS: CITRACAL + VITAMIN D PO SCH (10:08)
[2019-11-21] MEDS: MYLICON TAB 80 MG CHEW PO SCH ×2 (10:08→20:53)
[2019-11-21] MEDS: LOVENOX INJ 40 MG SYR SC SCH (12:30)
[2019-11-21] MEDS: SYNTHROID 75 mcg TAB PO SCH (16:43)
[2019-11-21] MEDS: MIRALAX POWDER (1 DOSE 17 G) PO PRN (17:00)
[2019-11-21] MEDS: LIPITOR TAB 20 MG PO SCH (20:51)
[2019-11-21] MEDS: TRAVATAN Z EACHEYE SCH (20:51)
--- NOTE | 2019-11-21 21:10 | DR.H&P ---
H&P - History & Physical for Day of: H&P Date: 11/20/19 - Chief Complaint Chief Complaint: WEAKNESS, AMS, LEFT HAND PAIN, RASH TO CHEST - History of Present Illness History of Present Illness: IS A 84 YEAR OLD PATIENT OF OURS WHO IS A RESIDENT OF [facility]. SHE PRESENTED TO THE ER WITH COMPLAINTS OF WEAKNESS, ALTERED MENTAL STATUS, A CHEST RASH, AND LEFT HAND PAIN. OUTPATIENT LABS WERE OBTAINED THIS MORNING AND REVEALED A SODIUM OF 118. ON ARRIVAL TO THE ER, VITALS WERE 98.1-82-18-98%-187/72. OUTPATIENT LABS ALSO REVEALED THE FOLLOWING ABNORMAL VALUES: HCT 34.9, SODIUM 118, CHLORIDE 87, BUN 43, CREATININE 1.47, GLUCOSE 133, CALCULATED OSMOLALITY 259, BNP 128, ALBUMIN 3.3, TSH 3RD GEN 4.458, URINE CREATININE 5.91. A LEFT HAND XRAY WAS OBTAINED AND REVEALED: No fractures identified. Minimal soft tissue swelling over the dorsum of the hand at the carpometacarpal joint level. Flexion deformity at the 5th PIP joint. EKG REVEALED: SINUS RHYTHM WITH HR 88. SHE WAS ADMITTED FOR FURTHER EVALUATION AND TREATMENT OF HYPONATREMIA, ACUTE KIDNEY INJURY, HYPOTHYROIDISM, AND VOLUME DEPLETION. SHE WAS STARTED ON NORMAL SALINE AT 75 ML/HR, LOVENOX 40MG SC DAILY, AND HOME MEDICATIONS WERE RESUMED WITH THE EXCEPTION OF HER LASIX. WE WILL INCREASE HER SYNTHROID TO 75 MCG PO DAILY AND OBTAIN A CULTURE OF RASH/SCABS TO THE CHEST. OTHERWISE, WE WILL FOLLOW UP WITH AM LABS AND CONTINUE TO MONITOR. 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 Additional Surgical History: Sinus surgery - Family History Family Medical History: Diabetes Mellitus, [place], Coronary Artery Disease, Sudden Cardiac - Social History Does patient currently use any type of tobacco product: No Have you used tobacco products in the last 12 months: No Type of Tobacco Use: None Does any household member use tobacco: No Alcohol Use: None - Medications Home Medications: tuberculin,PPD,multi-puncture Allergy (Verified 08/17/18 17:34) CONTINUE taking the following medications ascorbic acid (vitamin C) [Vitamin C] 500 mg PO BID 11/20/19 [History] cholestyramine (with sugar) [Questran] 4 g PO DAILY 11/20/19 [History] insulin detemir U-100 [Levemir U-100 Insulin] 25 units SUBCUT DAILY 11/20/19 [History] levothyroxine [Synthroid] 50 mcg PO DAILY 11/20/19 [History] nut.tx.gluc.intol,lac-free,soy [Glucerna] 1 ea PO DAILY 11/20/19 [History] docusate sodium [Colace] 100 mg PO BID 11/21/19 [History] ferrous fumarate [Ferrocite] 324 mg PO DAILY 11/21/19 [History] multivitamin tab DAILY 11/21/19 [History] - Review of Systems Constitutional: Weakness Eyes: No Symptoms Reported ENT: No Symptoms Reported Respiratory: No Symptoms Reported Cardiovascular: No Symptoms Reported Gastrointestinal: No Symptoms Reported Genitourinary: No Symptoms Reported Musculoskeletal: See HPI, Hand Pain (LEFT HAND PAIN ) Skin: See HPI, Rash (CHEST ) Neurological: Weakness - Physical Exam Vital Signs: Temperature 97.8 F Pulse Rate [Left Brachial] 73 Pulse Rate 76 Respiratory Rate 22 Blood Pressure [Left Arm] 142/81 Blood Pressure 153/70 O2 Sat by Pulse Oximetry 94 Oriented: Normal Eyes: Normal Ear: Normal Nose: Normal Throat: Normal Respiratory: Diminished Throughout Cardiovascular: Normal : Normal Auscultation: Bowel Sounds: Normal Palpation: Normal Tenderness: Normal Skin: Rash, Red Musculoskeletal: Left, Hand, Swelling, Tender Psychiatric: Normal Mood Description: Calm Affect: Normal Speech Pattern: Clear - Assessment/Plan (1) Acute hyponatremia Status: Acute Plan: NS AT 125ML/HR, HOLD LASIX, CONTINUE TO MONITOR (2) Chronic kidney disease (CKD) Qualifiers: Chronic kidney disease stage: unspecified stage Qualified Code(s): N18.9 - Chronic kidney disease, unspecified Status: Acute Plan: NS AT 125ML/HR, HOLD LASIX, CONTINUE TO MONITOR (3) Hypothyroidism Qualifiers: Hypothyroidism type: acquired Qualified Code(s): E03.9 - Hypothyroidism, unspecified Status: Chronic Plan: SYNTHROID 75 MCG PO DAILY, CONTINUE TO MONITOR (4) Volume depletion Status: Acute - Allergies Allergies/Adverse Reactions: Allergies Allergy/AdvReac Type Severity Reaction Status Date / Time tuberculin,PPD,multi-puncture Allergy Verified 08/17/18 17:34
[2019-11-22] MEDS: ARTIFICIAL TEARS DROPS EACHEYE SCH ×3 (05:12→21:50)
[2019-11-22 05:13] LABS: BASOPHILS # (AUTO) 0.1 X10^3/uL (0.0-0.1); BASOPHILS % (AUTO) 0.8 % (0.2-1.0); EOSINOPHILS # (AUTO) 0.2 x10^3/uL (0.0-0.2); EOSINOPHILS % (AUTO) 1.9 % (0.9-2.9); HEMATOCRIT 38.9 % (36.0-47.0); HEMOGLOBIN 13.6 g/dL (12.0-16.0); LYMPHOCYTES % (AUTO) 12.9 % (21.0-51.0); MEAN CORPUSCULAR HEMOGLOBIN 32.1 pg (27.0-34.0); MEAN CORPUSCULAR VOLUME 91.7 fL (80.0-100.0); MEAN PLATELET VOLUME 7.2 fL (7.4-11.0); MONOCYTES # (AUTO) 1.2 x10^3/uL (0.3-0.8); MONOCYTES % (AUTO) 15.7 % (0.0-13.0); NEUTROPHILS # (AUTO) 5.4 x10^3/uL (2.2-4.8); NEUTROPHILS % (AUTO) 68.7 % (42.0-75.0); PLATELET COUNT 249 X10^3/uL (150.0-450.0); RED BLOOD COUNT 4.25 X10^6/uL (3.5-5.4); RED CELL DISTRIBUTION WIDTH 13.9 % (11.6-16.5); WHITE BLOOD COUNT 7.9 X10^3/uL (3.6-10.0)
[2019-11-22] MEDS: NS 1000 ML 1,000 ML IV SCH ×2 (05:13→21:51)
[2019-11-22 05:30] LABS: ALANINE AMINOTRANSFERASE 35 Units/L (12-78); ALBUMIN 3.7 g/dL (3.4-5.0); ALKALINE PHOSPHATASE 107 Units/L (46-116); ASPARTATE AMINO TRANSFERASE 28 Units/L (15-37); BLOOD UREA NITROGEN 12 mg/dL (7-18); CARBON DIOXIDE 26.1 mmol/L (21-32); CHLORIDE 97 mmol/L (98-107); COR NA(FOR HYPERGLY) 133 mmol/L (136-145); CREATININE 0.76 mg/dL (0.55-1.02); SODIUM 132 mmol/L (136-145); TOTAL PROTEIN 7.2 g/dL (6.4-8.2); eGFR NON BLACK RACES > 60 (>60)
[2019-11-22] MEDS ORDERED: ZESTRIL TAB 20 MG ONE ×2 (08:28→19:26)
[2019-11-22] MEDS: APRESOLINE TAB 25 MG PO SCH ×4 (09:02→20:26)
[2019-11-22] MEDS: VITAMIN C PO SCH ×2 (09:02→20:27)
[2019-11-22] MEDS: JANUVIA PO SCH (09:02)
[2019-11-22] MEDS: CALAN SR 240 MG PO SCH (09:02)
[2019-11-22] MEDS: QUESTRAN POWDER FOR ORAL SUSP PO SCH (09:03)
[2019-11-22] MEDS: ZESTRIL TAB 20 MG PO SCH ×2 (09:03→20:28)
[2019-11-22] MEDS: MYLICON TAB 80 MG CHEW PO SCH ×2 (09:03→21:50)
[2019-11-22] MEDS: PROTONIX TAB 40 MG PO SCH (09:03)
[2019-11-22] MEDS: CITRACAL + VITAMIN D PO SCH (09:03)
[2019-11-22] MEDS: LOVENOX INJ 40 MG SYR SC SCH (09:04)
[2019-11-22] MEDS: ULTRAM PO PRN ×2 (09:05→20:27)
[2019-11-22] MEDS: SYNTHROID 75 mcg TAB PO SCH (17:21)
--- NOTE | 2019-11-22 19:33 | PCM.PROG ---
Progress Note - Progress Note for Day of Date of Exam: 11/22/19 - Subjective Subjective: IS BEING TREATED FOR HYPONATREMIA, ACUTE KIDNEY INJURY, HYPOTHYROIDISM, AND VOLUME DEPLETION. TODAY, SHE IS ALERT AND ORIENTED, LYING IN BED ON MORNING ROUNDS. SHE CONTINUES WITH COMPLAINTS OF WEAKENSS TODAY. ON EXAMINATION, RASH NOTED TO CHEST, SLIGHTLY IMPROVED SINCE YESTERDAY. HEART IS REGULAR IN RATE AND RHYTHM. BILATERAL LUNGS ARE NOTED WITH DIMINISHED LUNG SOUNDS THROUGHOUT. ABDOMEN IS ROUND, SOFT, AND NON-TENDER WITH NORMAL BOWEL SOUNDS NOTED IN ALL QUADRANTS. LEFT HAND CONTINUES WITH SWELLING. HER VITALS THIS MORNING ARE: 98.7-100-29-94%-162/90. LABS WERE OBTAINED. ABNORMAL LAB VALUES INCLUDE THE FOLLOWING: SODIUM 132, CHLORIDE 97, GLUCOSE 141. WOUND CULTURE OF NECK IS PENDING. SHE IS CURRENTLY RECEIVING NORMAL SALINE AT 75 ML/HR, LOVENOX 40MG SC DAILY, AND HOME MEDICATIONS WERE RESUMED. WE WILL CONTINUE WITH CURRENT PLAN OF CARE TODAY. OTHERWISE, WE WILL FOLLOW UP WITH AM LABS AND CONTINUE TO MONITOR. - Past Medical Family Social History Past Med/Fam/Surg Hx: No changes since H&P Allergies: Allergies tuberculin,PPD,multi-puncture Allergy (Verified 08/17/18 17:34) - Review of Systems ROS: No change since H&P - Vital Signs and I&O's Vital Signs: Temperature 98.1 F Pulse Rate [Left Brachial] 73 Pulse Rate 130 Respiratory Rate 32 Blood Pressure [Left Arm] 142/81 Blood Pressure 180/106 O2 Sat by Pulse Oximetry 95 Intake and Output: Intake & Output 11/20/19 11/21/19 11/22/19 11/23/19 11:59 11:59 11:59 11:59 Intake Total 2635 / 2635 3415 / 3415 1868 / 1868 Output Total 3400 / 3400 9650 / 9650 2375 / 2375 Balance -765 / -765 -6235 / -6235 -507 / -507 - Physical Exam Oriented: Normal Eyes: Normal Ear: Normal Nose: Normal Throat: Normal Respiratory: Generalized, Diminished Cardiovascular: Normal : Normal Auscultation: Bowel Sounds: Normal Palpation: Normal Tenderness: Normal Skin: Rash, Red Musculoskeletal: Left, Hand, Swelling, Tender Psychiatric: Normal Mood Description: Calm Affect: Normal Speech Pattern: Clear, Appropriate - Laboratory and Diagnostics Result Diagrams: 11/22/19 04:05 11/22/19 04:05 Labs: 11/21/19 11:00 Chest Gram Stain - Final 11/21/19 11:00 Chest Wound Culture - Preliminary Laboratory WBC 7.9 X10^3/uL (3.6-10.0) 11/22/19 04:05 RBC 4.25 X10^6/uL (3.5-5.4) 11/22/19 04:05 Hgb 13.6 g/dL (12.0-16.0) 11/22/19 04:05 Hct 38.9 % (36.0-47.0) 11/22/19 04:05 MCV 91.7 fL (80.0-100.0) 11/22/19 04:05 MCH 32.1 pg (27.0-34.0) 11/22/19 04:05 MCHC 35.0 g/dL (33.0-35.0) 11/22/19 04:05 RDW 13.9 % (11.6-16.5) 11/22/19 04:05 Plt Count 249 X10^3/uL (150.0-450.0) 11/22/19 04:05 MPV 7.2 fL (7.4-11.0) L 11/22/19 04:05 Neut % (Auto) 68.7 % (42.0-75.0) 11/22/19 04:05 Lymph % (Auto) 12.9 % (21.0-51.0) L 11/22/19 04:05 [place] % (Auto) 15.7 % (0.0-13.0) H 11/22/19 04:05 Eos % (Auto) 1.9 % (0.9-2.9) 11/22/19 04:05 Baso % (Auto) 0.8 % (0.2-1.0) 11/22/19 04:05 Neut # (Auto) 5.4 x10^3/uL (2.2-4.8) H 11/22/19 04:05 Lymph # (Auto) 1.0 X10^3/uL (1.3-2.9) L 11/22/19 04:05 [place] # (Auto) 1.2 x10^3/uL (0.3-0.8) H 11/22/19 04:05 Eos # (Auto) 0.2 x10^3/uL (0.0-0.2) 11/22/19 04:05 Baso # (Auto) 0.1 X10^3/uL (0.0-0.1) 11/22/19 04:05 Absolute Nucleated RBC 0.0 /100WBC 11/22/19 04:05 Sodium 132 mmol/L (136-145) L 11/22/19 04:05 Corrected Sodium 133 mmol/L (136-145) L 11/22/19 04:05 Potassium 3.8 mmol/L (3.5-5.1) 11/22/19 04:05 Chloride 97 mmol/L (98-107) L 11/22/19 04:05 Carbon Dioxide 26.1 mmol/L (21-32) 11/22/19 04:05 BUN 12 mg/dL (7-18) 11/22/19 04:05 Creatinine 0.76 mg/dL (0.55-1.02) 11/22/19 04:05 Est GFR (MDRD) Af Amer > 60 (>60) 11/22/19 04:05 Est GFR (MDRD) Non-Af > 60 (>60) 11/22/19 04:05 Glucose 141 mg/dL (65-99) H 11/22/19 04:05 POC Glucose (mg/dL) 139 mg/dL (65-99) H 11/21/19 16:45 Calculated Osmolality 259 mOsm/kg (285-295) L 11/20/19 05:17 Calcium 9.0 mg/dL (8.5-10.1) 11/22/19 04:05 Corrected Calcium TNP 11/22/19 04:05 Total Bilirubin 0.80 mg/dL (0.2-1.0) 11/22/19 04:05 AST 28 Units/L (15-37) 11/22/19 04:05 ALT 35 Units/L (12-78) 11/22/19 04:05 Alkaline Phosphatase 107 Units/L (46-116) 11/22/19 04:05 Total Protein 7.2 g/dL (6.4-8.2) 11/22/19 04:05 Albumin 3.7 g/dL (3.4-5.0) 11/22/19 04:05 Globulin 3.5 g/dL (2.5-4.5) 11/22/19 04:05 Albumin/Globulin Ratio 1.1 Ratio (1.1-2.1) 11/22/19 04:05 TSH 3rd Generation 4.458 uIU/mL (0.358-3.74) H 11/20/19 05:17 Specimen Type Catherized urine 11/20/19 11:00 Urine Color Yellow (YELLOW) 11/20/19 11:00 Urine Appearance Hazy (CLEAR) 11/20/19 11:00 Urine pH 6.0 (5.0 - 8.0) 11/20/19 11:00 Ur Specific [place] 1.005 (1.000-1.030) 11/20/19 11:00 Urine Protein 1+ (NEGATIVE) 11/20/19 11:00 Urine Glucose (UA) Negative (NEGATIVE) 11/20/19 11:00 Urine Ketones Negative (NEGATIVE) 11/20/19 11:00 Urine Occult Blood Negative (NEGATIVE) 11/20/19 11:00 Urine Nitrite Negative (NEGATIVE) 11/20/19 11:00 Urine Bilirubin Negative (NEGATIVE) 11/20/19 11:00 Urine Urobilinogen Normal (NORMAL) 11/20/19 11:00 Ur Leukocyte Esterase Negative (NEGATIVE) 11/20/19 11:00 Urine RBC None seen /HPF (0-3) 11/20/19 11:00 Urine WBC None seen /HPF (0-5) 11/20/19 11:00 Ur Squamous Epith Cells Negative /HPF (NEGATIVE) 11/20/19 11:00 Urine Bacteria Negative /HPF (NEGATIVE) 11/20/19 11:00 Urine Mucus Few /HPF (NEGATIVE) 11/20/19 11:00 Ur Culture Indicated? No/not indicated 11/20/19 11:00 Ur Random Sodium 21 mmol/L (40-220) L 11/20/19 11:00 Urine Creatinine 5.91 mg/dL (29-226) L 11/20/19 11:00 - Plan (1) Acute hyponatremia Status: Acute Plan: NS AT 125ML/HR, HOLD LASIX, CONTINUE TO MONITOR (2) Chronic kidney disease (CKD) Status: Acute Qualifiers: Chronic kidney disease stage: unspecified stage Qualified Code(s): N18.9 - Chronic kidney disease, unspecified Plan: NS AT 125ML/HR, HOLD LASIX, CONTINUE TO MONITOR (3) Hypothyroidism Status: Chronic Qualifiers: Hypothyroidism type: acquired Qualified Code(s): E03.9 - Hypothyroidism, unspecified Plan: SYNTHROID 75 MCG PO DAILY, CONTINUE TO MONITOR (4) Volume depletion Status: Acute
[2019-11-22] MEDS: TRAVATAN Z EACHEYE SCH (20:27)
[2019-11-22] MEDS: MIRALAX POWDER (1 DOSE 17 G) PO PRN (20:28)
[2019-11-22] MEDS: LIPITOR TAB 20 MG PO SCH (20:28)
[2019-11-22] MEDS: COLACE CAP 100 MG PO PRN (21:50)
[2019-11-23] MEDS: ARTIFICIAL TEARS DROPS EACHEYE SCH ×3 (05:09→21:50)
[2019-11-23 05:33] LABS: BASOPHILS # (AUTO) 0.1 X10^3/uL (0.0-0.1); BASOPHILS % (AUTO) 1.1 % (0.2-1.0); EOSINOPHILS # (AUTO) 0.3 x10^3/uL (0.0-0.2); EOSINOPHILS % (AUTO) 3.7 % (0.9-2.9); HEMATOCRIT 38.5 % (36.0-47.0); HEMOGLOBIN 13.8 g/dL (12.0-16.0); LYMPHOCYTES # (AUTO) 1.6 X10^3/uL (1.3-2.9); MEAN CORPUSCULAR HEMOGLOBIN 32.4 pg (27.0-34.0); MEAN CORPUSCULAR HGB CONC 35.8 g/dL (33.0-35.0); MEAN CORPUSCULAR VOLUME 90.5 fL (80.0-100.0); MEAN PLATELET VOLUME 7.1 fL (7.4-11.0); MONOCYTES # (AUTO) 1.3 x10^3/uL (0.3-0.8); MONOCYTES % (AUTO) 16.3 % (0.0-13.0); NEUTROPHILS # (AUTO) 4.6 x10^3/uL (2.2-4.8); NEUTROPHILS % (AUTO) 58.9 % (42.0-75.0); PLATELET COUNT 264 X10^3/uL (150.0-450.0); RED BLOOD COUNT 4.26 X10^6/uL (3.5-5.4); RED CELL DISTRIBUTION WIDTH 13.9 % (11.6-16.5); WHITE BLOOD COUNT 7.8 X10^3/uL (3.6-10.0)
[2019-11-23 05:45] LABS: ALANINE AMINOTRANSFERASE 28 Units/L (12-78); ALBUMIN 3.2 g/dL (3.4-5.0); ALKALINE PHOSPHATASE 101 Units/L (46-116); ASPARTATE AMINO TRANSFERASE 18 Units/L (15-37); BLOOD UREA NITROGEN 15 mg/dL (7-18); CALCIUM 9.1 mg/dL (8.5-10.1); CARBON DIOXIDE 24.4 mmol/L (21-32); CHLORIDE 98 mmol/L (98-107); COR CA(FOR HYPOALB) 9.7 mg/dL (8.5-10.1); COR NA(FOR HYPERGLY) 133 mmol/L (136-145); SODIUM 132 mmol/L (136-145); TOTAL PROTEIN 6.9 g/dL (6.4-8.2); eGFR NON BLACK RACES > 60 (>60)
[2019-11-23] MEDS ORDERED: DIPRIVAN VIAL 20 ML ONE (08:06)
[2019-11-23] MEDS ORDERED: ZESTRIL TAB 20 MG ONE ×2 (09:59→20:03)
[2019-11-23] MEDS: APRESOLINE TAB 25 MG PO SCH ×4 (10:04→20:31)
[2019-11-23] MEDS: JANUVIA PO SCH (10:05)
[2019-11-23] MEDS: CITRACAL + VITAMIN D PO SCH (10:06)
[2019-11-23] MEDS: ZESTRIL TAB 20 MG PO SCH ×2 (10:06→20:31)
[2019-11-23] MEDS: MYLICON TAB 80 MG CHEW PO SCH ×2 (10:07→20:32)
[2019-11-23] MEDS: QUESTRAN POWDER FOR ORAL SUSP PO SCH (10:07)
[2019-11-23] MEDS: VITAMIN C PO SCH ×2 (10:07→20:30)
[2019-11-23] MEDS: CALAN SR 240 MG PO SCH (10:07)
[2019-11-23] MEDS: PROTONIX INJ 40 MG VIAL IVP SCH ×2 (10:08→20:32)
[2019-11-23] MEDS: NS 1000 ML 1,000 ML IV SCH (12:55)
[2019-11-23] MEDS: SYNTHROID 75 mcg TAB PO SCH (17:16)
--- NOTE | 2019-11-23 18:35 | PCM.PROG ---
Progress Note - Progress Note for Day of Date of Exam: 11/23/19 - Subjective Subjective: IS BEING TREATED FOR HYPONATREMIA, ACUTE KIDNEY INJURY, HYPOTHYROIDISM, AND VOLUME DEPLETION. TODAY, SHE IS ALERT AND ORIENTED, LYING IN BED ON MORNING ROUNDS. SHE CONTINUES WITH COMPLAINTS OF WEAKENSS TODAY. ON EXAMINATION, RASH NOTED TO CHEST, SLIGHTLY IMPROVED SINCE YESTERDAY. HEART IS REGULAR IN RATE AND RHYTHM. BILATERAL LUNGS ARE NOTED WITH DIMINISHED LUNG SOUNDS THROUGHOUT. ABDOMEN IS ROUND, SOFT, AND NON-TENDER WITH NORMAL BOWEL SOUNDS NOTED IN ALL QUADRANTS. LEFT HAND CONTINUES WITH SWELLING. HER VITALS THIS MORNING ARE: 98.5-09-78-100-122/56. LABS WERE OBTAINED. ABNORMAL LAB VALUES INCLUDE THE FOLLOWING: SODIUM 132, GLUCOSE 135, ALBUMIN 3.2. WOUND CULTURE OF CHEST REVEALS GROWTH OF STAPHYLOCOCCUS AUREUS. SHE IS CURRENTLY RECEIVING NORMAL SALINE AT 75 ML/HR, LOVENOX 40MG SC DAILY, AND HOME MEDICATIONS WERE RESUMED. WE WILL CONTINUE WITH CURRENT PLAN OF CARE TODAY AND ADD LEVAQUIN 500MG IV DAILY. SHE WAS SCHEDULED FOR AN EGD DUE TO DYSPHAGIA AND EPIGASTRIC PAIN. WILL PERFORM EGD IN THE OR TODAY. OTHERWISE, WE WILL FOLLOW UP WITH AM LABS AND CONTINUE TO MONITOR. - Past Medical Family Social History Past Med/Fam/Surg Hx: No changes since H&P Allergies: Allergies tuberculin,PPD,multi-puncture Allergy (Verified 08/17/18 17:34) - Review of Systems ROS: No change since H&P - Vital Signs and I&O's Vital Signs: Temperature 98.5 F Pulse Rate [Left Brachial] 73 Pulse Rate 84 Respiratory Rate 27 Blood Pressure [Left Arm] 142/81 Blood Pressure 182/88 O2 Sat by Pulse Oximetry 98 Intake and Output: Intake & Output 11/21/19 11/22/19 11/23/19 11/24/19 11:59 11:59 11:59 11:59 Intake Total 2635 / 2635 3415 / 3415 3575 / 3575 900 / 900 Output Total 3400 / 3400 9650 / 9650 3875 / 3875 Balance -765 / -765 -6235 / -6235 -300 / -300 900 / 900 - Physical Exam Oriented: Normal Eyes: Normal Ear: Normal Nose: Normal Throat: Normal Respiratory: Generalized, Diminished Cardiovascular: Normal : Normal Auscultation: Bowel Sounds: Normal Palpation: Normal Tenderness: Normal Skin: Rash, Red Musculoskeletal: Left, Hand, Swelling, Tender Psychiatric: Normal Mood Description: Calm Affect: Normal Speech Pattern: Clear, Appropriate - Laboratory and Diagnostics Result Diagrams: 11/23/19 04:46 11/23/19 04:46 Labs: 11/21/19 11:00 Chest Gram Stain - Final 11/21/19 11:00 Chest Wound Culture - Final Staphylococcus Aureus Laboratory WBC 7.8 X10^3/uL (3.6-10.0) 11/23/19 04:46 RBC 4.26 X10^6/uL (3.5-5.4) 11/23/19 04:46 Hgb 13.8 g/dL (12.0-16.0) 11/23/19 04:46 Hct 38.5 % (36.0-47.0) 11/23/19 04:46 MCV 90.5 fL (80.0-100.0) 11/23/19 04:46 MCH 32.4 pg (27.0-34.0) 11/23/19 04:46 MCHC 35.8 g/dL (33.0-35.0) H 11/23/19 04:46 RDW 13.9 % (11.6-16.5) 11/23/19 04:46 Plt Count 264 X10^3/uL (150.0-450.0) 11/23/19 04:46 MPV 7.1 fL (7.4-11.0) L 11/23/19 04:46 Neut % (Auto) 58.9 % (42.0-75.0) 11/23/19 04:46 Lymph % (Auto) 20.0 % (21.0-51.0) L 11/23/19 04:46 [place] % (Auto) 16.3 % (0.0-13.0) H 11/23/19 04:46 Eos % (Auto) 3.7 % (0.9-2.9) H 11/23/19 04:46 Baso % (Auto) 1.1 % (0.2-1.0) H 11/23/19 04:46 Neut # (Auto) 4.6 x10^3/uL (2.2-4.8) 11/23/19 04:46 Lymph # (Auto) 1.6 X10^3/uL (1.3-2.9) 11/23/19 04:46 [place] # (Auto) 1.3 x10^3/uL (0.3-0.8) H 11/23/19 04:46 Eos # (Auto) 0.3 x10^3/uL (0.0-0.2) H 11/23/19 04:46 Baso # (Auto) 0.1 X10^3/uL (0.0-0.1) 11/23/19 04:46 Absolute Nucleated RBC 0.0 /100WBC 11/23/19 04:46 Sodium 132 mmol/L (136-145) L 11/23/19 04:46 Corrected Sodium 133 mmol/L (136-145) L 11/23/19 04:46 Potassium 3.7 mmol/L (3.5-5.1) 11/23/19 04:46 Chloride 98 mmol/L (98-107) 11/23/19 04:46 Carbon Dioxide 24.4 mmol/L (21-32) 11/23/19 04:46 BUN 15 mg/dL (7-18) 11/23/19 04:46 Creatinine 0.80 mg/dL (0.55-1.02) 11/23/19 04:46 Est GFR (MDRD) Af Amer > 60 (>60) 11/23/19 04:46 Est GFR (MDRD) Non-Af > 60 (>60) 11/23/19 04:46 Glucose 135 mg/dL (65-99) H 11/23/19 04:46 POC Glucose (mg/dL) 139 mg/dL (65-99) H 11/21/19 16:45 Calculated Osmolality 259 mOsm/kg (285-295) L 11/20/19 05:17 Calcium 9.1 mg/dL (8.5-10.1) 11/23/19 04:46 Corrected Calcium 9.7 mg/dL (8.5-10.1) 11/23/19 04:46 Total Bilirubin 0.70 mg/dL (0.2-1.0) 11/23/19 04:46 AST 18 Units/L (15-37) 11/23/19 04:46 ALT 28 Units/L (12-78) 11/23/19 04:46 Alkaline Phosphatase 101 Units/L (46-116) 11/23/19 04:46 Total Protein 6.9 g/dL (6.4-8.2) 11/23/19 04:46 Albumin 3.2 g/dL (3.4-5.0) L 11/23/19 04:46 Globulin 3.7 g/dL (2.5-4.5) 11/23/19 04:46 Albumin/Globulin Ratio 0.9 Ratio (1.1-2.1) L 11/23/19 04:46 TSH 3rd Generation 4.458 uIU/mL (0.358-3.74) H 11/20/19 05:17 Specimen Type Catherized urine 11/20/19 11:00 Urine Color Yellow (YELLOW) 11/20/19 11:00 Urine Appearance Hazy (CLEAR) 11/20/19 11:00 Urine pH 6.0 (5.0 - 8.0) 11/20/19 11:00 Ur Specific [place] 1.005 (1.000-1.030) 11/20/19 11:00 Urine Protein 1+ (NEGATIVE) 11/20/19 11:00 Urine Glucose (UA) Negative (NEGATIVE) 11/20/19 11:00 Urine Ketones Negative (NEGATIVE) 11/20/19 11:00 Urine Occult Blood Negative (NEGATIVE) 11/20/19 11:00 Urine Nitrite Negative (NEGATIVE) 11/20/19 11:00 Urine Bilirubin Negative (NEGATIVE) 11/20/19 11:00 Urine Urobilinogen Normal (NORMAL) 11/20/19 11:00 Ur Leukocyte Esterase Negative (NEGATIVE) 11/20/19 11:00 Urine RBC None seen /HPF (0-3) 11/20/19 11:00 Urine WBC None seen /HPF (0-5) 11/20/19 11:00 Ur Squamous Epith Cells Negative /HPF (NEGATIVE) 11/20/19 11:00 Urine Bacteria Negative /HPF (NEGATIVE) 11/20/19 11:00 Urine Mucus Few /HPF (NEGATIVE) 11/20/19 11:00 Ur Culture Indicated? No/not indicated 11/20/19 11:00 Ur Random Sodium 21 mmol/L (40-220) L 11/20/19 11:00 Urine Creatinine 5.91 mg/dL (29-226) L 11/20/19 11:00 Tissue Pathology To follow 11/23/19 08:21 - Plan (1) Acute hyponatremia Status: Acute Plan: NS AT 125ML/HR, HOLD LASIX, CONTINUE TO MONITOR (2) Staphylococcus aureus infection Status: Acute Plan: LEVAQUIN 500MG IV DAILY, CONTINUE TO MONITOR (3) Chronic kidney disease (CKD) Status: Acute Qualifiers: Chronic kidney disease stage: unspecified stage Qualified Code(s): N18.9 - Chronic kidney disease, unspecified Plan: NS AT 125ML/HR, HOLD LASIX, CONTINUE TO MONITOR (4) Hypothyroidism Status: Chronic Qualifiers: Hypothyroidism type: acquired Qualified Code(s): E03.9 - Hypothyroidism, unspecified Plan: SYNTHROID 75 MCG PO DAILY, CONTINUE TO MONITOR (5) Volume depletion Status: Acute
[2019-11-23] MEDS: MILK OF MAGNESIA PO SCH (20:30)
[2019-11-23] MEDS: LIPITOR TAB 20 MG PO SCH (20:31)
[2019-11-23] MEDS: LEVAQUIN PREMIX IV 500 MG 500 MG/100 ML BAG IV SCH (20:32)
[2019-11-23] MEDS: TRAVATAN Z EACHEYE SCH (20:40)
[2019-11-24] MEDS: NS 1000 ML 1,000 ML IV SCH ×3 (00:21→18:48)
[2019-11-24] MEDS: ARTIFICIAL TEARS DROPS EACHEYE SCH ×3 (05:39→22:00)
[2019-11-24 06:29] LABS: ALANINE AMINOTRANSFERASE 22 Units/L (12-78); ALKALINE PHOSPHATASE 88 Units/L (46-116); ASPARTATE AMINO TRANSFERASE 18 Units/L (15-37); BLOOD UREA NITROGEN 13 mg/dL (7-18); CALCIUM 8.5 mg/dL (8.5-10.1); CARBON DIOXIDE 25.3 mmol/L (21-32); CHLORIDE 101 mmol/L (98-107); COR CA(FOR HYPOALB) 9.3 mg/dL (8.5-10.1); CREATININE 0.75 mg/dL (0.55-1.02); SODIUM 134 mmol/L (136-145); TOTAL PROTEIN 6.5 g/dL (6.4-8.2); eGFR NON BLACK RACES > 60 (>60)
[2019-11-24 06:32] LABS: BASOPHILS # (AUTO) 0.1 X10^3/uL (0.0-0.1); BASOPHILS % (AUTO) 1.1 % (0.2-1.0); EOSINOPHILS # (AUTO) 0.4 x10^3/uL (0.0-0.2); EOSINOPHILS % (AUTO) 5.9 % (0.9-2.9); HEMATOCRIT 37.6 % (36.0-47.0); HEMOGLOBIN 13.3 g/dL (12.0-16.0); LYMPHOCYTES # (AUTO) 1.2 X10^3/uL (1.3-2.9); LYMPHOCYTES % (AUTO) 16.9 % (21.0-51.0); MEAN CORPUSCULAR HEMOGLOBIN 31.9 pg (27.0-34.0); MEAN CORPUSCULAR HGB CONC 35.3 g/dL (33.0-35.0); MEAN CORPUSCULAR VOLUME 90.5 fL (80.0-100.0); MEAN PLATELET VOLUME 6.8 fL (7.4-11.0); MONOCYTES % (AUTO) 15.2 % (0.0-13.0); NEUTROPHILS # (AUTO) 4.2 x10^3/uL (2.2-4.8); NEUTROPHILS % (AUTO) 60.9 % (42.0-75.0); PLATELET COUNT 254 X10^3/uL (150.0-450.0); RED BLOOD COUNT 4.16 X10^6/uL (3.5-5.4); RED CELL DISTRIBUTION WIDTH 13.8 % (11.6-16.5); WHITE BLOOD COUNT 6.9 X10^3/uL (3.6-10.0)
[2019-11-24] MEDS ORDERED: ZESTRIL TAB 20 MG ONE ×2 (08:33→19:47)
[2019-11-24] MEDS: APRESOLINE TAB 25 MG PO SCH ×4 (08:36→20:25)
[2019-11-24] MEDS: JANUVIA PO SCH (08:37)
[2019-11-24] MEDS: CITRACAL + VITAMIN D PO SCH (08:37)
[2019-11-24] MEDS: CALAN SR 240 MG PO SCH (08:37)
[2019-11-24] MEDS: COLACE CAP 100 MG PO PRN ×2 (08:38→20:25)
[2019-11-24] MEDS: PROTONIX INJ 40 MG VIAL IVP SCH ×2 (08:38→20:28)
[2019-11-24] MEDS: MILK OF MAGNESIA PO SCH ×2 (08:39→20:26)
[2019-11-24] MEDS: LEVAQUIN PREMIX IV 500 MG 500 MG/100 ML BAG IV SCH (08:39)
[2019-11-24] MEDS: QUESTRAN POWDER FOR ORAL SUSP PO SCH (08:39)
[2019-11-24] MEDS: MYLICON TAB 80 MG CHEW PO SCH ×2 (08:39→20:24)
[2019-11-24] MEDS: ZESTRIL TAB 20 MG PO SCH ×2 (08:49→20:28)
[2019-11-24] MEDS: VITAMIN C PO SCH ×2 (08:49→20:25)
[2019-11-24] MEDS: TAB-A-VITE PO SCH (15:57)
[2019-11-24] MEDS: SYNTHROID 75 mcg TAB PO SCH (15:57)
[2019-11-24] MEDS: LIPITOR TAB 20 MG PO SCH (20:28)
[2019-11-24] MEDS: TRAVATAN Z EACHEYE SCH (20:33)
[2019-11-24] MEDS: ULTRAM PO PRN (21:35)
[2019-11-25 01:06] LABS: CKMB % 3.6 % (<4); CREATINE KINASE 90 Units/L (26-192); CREATINE KINASE MB 3.2 ng/mL (0-4.0); TROPONIN I < 0.02 ng/mL (0-1.5)
[2019-11-25] MEDS: ULTRAM PO PRN (03:24)
[2019-11-25] MEDS: NS 1000 ML 1,000 ML IV SCH (04:21)
[2019-11-25 04:37] LABS: BASOPHILS # (AUTO) 0.1 X10^3/uL (0.0-0.1); EOSINOPHILS # (AUTO) 0.3 x10^3/uL (0.0-0.2); HEMATOCRIT 38.1 % (36.0-47.0); HEMOGLOBIN 13.3 g/dL (12.0-16.0); LYMPHOCYTES # (AUTO) 1.1 X10^3/uL (1.3-2.9); LYMPHOCYTES % (AUTO) 16.6 % (21.0-51.0); MEAN CORPUSCULAR HEMOGLOBIN 31.5 pg (27.0-34.0); MEAN CORPUSCULAR HGB CONC 34.8 g/dL (33.0-35.0); MEAN CORPUSCULAR VOLUME 90.4 fL (80.0-100.0); MEAN PLATELET VOLUME 6.5 fL (7.4-11.0); MONOCYTES # (AUTO) 1.1 x10^3/uL (0.3-0.8); MONOCYTES % (AUTO) 16.9 % (0.0-13.0); NEUTROPHILS # (AUTO) 4.1 x10^3/uL (2.2-4.8); NEUTROPHILS % (AUTO) 60.5 % (42.0-75.0); PLATELET COUNT 260 X10^3/uL (150.0-450.0); RED BLOOD COUNT 4.22 X10^6/uL (3.5-5.4); RED CELL DISTRIBUTION WIDTH 13.7 % (11.6-16.5); WHITE BLOOD COUNT 6.8 X10^3/uL (3.6-10.0)
[2019-11-25 04:48] LABS: ALANINE AMINOTRANSFERASE 21 Units/L (12-78); ALBUMIN 3.2 g/dL (3.4-5.0); ALKALINE PHOSPHATASE 94 Units/L (46-116); ASPARTATE AMINO TRANSFERASE 16 Units/L (15-37); BLOOD UREA NITROGEN 10 mg/dL (7-18); CALCIUM 8.7 mg/dL (8.5-10.1); CARBON DIOXIDE 25.8 mmol/L (21-32); CHLORIDE 99 mmol/L (98-107); COR CA(FOR HYPOALB) 9.3 mg/dL (8.5-10.1); COR NA(FOR HYPERGLY) 133 mmol/L (136-145); CREATININE 0.67 mg/dL (0.55-1.02); SODIUM 132 mmol/L (136-145); TOTAL PROTEIN 6.7 g/dL (6.4-8.2); eGFR NON BLACK RACES > 60 (>60)
[2019-11-25] MEDS: ARTIFICIAL TEARS DROPS EACHEYE SCH ×3 (05:43→21:35)
[2019-11-25 08:18] LABS: CREATINE KINASE MB 2.4 ng/mL (0-4.0); TROPONIN I 0.02 ng/mL (0-1.5)
[2019-11-25] MEDS ORDERED: ZESTRIL TAB 20 MG ONE ×2 (08:40→20:53)
[2019-11-25] MEDS: APRESOLINE TAB 25 MG PO SCH ×4 (08:50→21:02)
[2019-11-25] MEDS: MYLICON TAB 80 MG CHEW PO SCH ×2 (08:51→21:35)
[2019-11-25] MEDS: CALAN SR 240 MG PO SCH (08:51)
[2019-11-25] MEDS: TAB-A-VITE PO SCH (08:53)
[2019-11-25] MEDS: FERROUS GLUCONATE PO SCH (08:53)
[2019-11-25] MEDS: VITAMIN C PO SCH ×2 (08:54→21:04)
[2019-11-25] MEDS: JANUVIA PO SCH (08:54)
[2019-11-25] MEDS: PROTONIX INJ 40 MG VIAL IVP SCH ×2 (08:54→21:30)
[2019-11-25] MEDS: MILK OF MAGNESIA PO SCH ×2 (08:55→21:05)
[2019-11-25] MEDS: CITRACAL + VITAMIN D PO SCH (08:55)
[2019-11-25] MEDS: QUESTRAN POWDER FOR ORAL SUSP PO SCH (08:56)
[2019-11-25] MEDS: ZESTRIL TAB 20 MG PO SCH ×2 (08:57→21:35)
[2019-11-25] MEDS: LEVAQUIN PREMIX IV 500 MG 500 MG/100 ML BAG IV SCH (08:58)
[2019-11-25] MEDS: SYNTHROID 75 mcg TAB PO SCH (17:11)
[2019-11-25] MEDS ORDERED: BENADRYL CAP/TAB 25 MG PO PRN (18:07)
[2019-11-25] MEDS: LIPITOR TAB 20 MG PO SCH (21:04)
[2019-11-25] MEDS: TRAVATAN Z EACHEYE SCH (21:35)
[2019-11-26] MEDS: ARTIFICIAL TEARS DROPS EACHEYE SCH ×3 (06:09→22:04)
[2019-11-26 06:27] LABS: BASOPHILS # (AUTO) 0.1 X10^3/uL (0.0-0.1); BASOPHILS % (AUTO) 0.9 % (0.2-1.0); EOSINOPHILS # (AUTO) 0.5 x10^3/uL (0.0-0.2); EOSINOPHILS % (AUTO) 8.4 % (0.9-2.9); HEMATOCRIT 38.3 % (36.0-47.0); HEMOGLOBIN 13.4 g/dL (12.0-16.0); LYMPHOCYTES # (AUTO) 1.2 X10^3/uL (1.3-2.9); LYMPHOCYTES % (AUTO) 20.3 % (21.0-51.0); MEAN CORPUSCULAR HEMOGLOBIN 31.7 pg (27.0-34.0); MEAN CORPUSCULAR HGB CONC 34.9 g/dL (33.0-35.0); MEAN CORPUSCULAR VOLUME 90.7 fL (80.0-100.0); MEAN PLATELET VOLUME 6.9 fL (7.4-11.0); MONOCYTES # (AUTO) 0.9 x10^3/uL (0.3-0.8); MONOCYTES % (AUTO) 15.8 % (0.0-13.0); NEUTROPHILS # (AUTO) 3.2 x10^3/uL (2.2-4.8); NEUTROPHILS % (AUTO) 54.6 % (42.0-75.0); PLATELET COUNT 275 X10^3/uL (150.0-450.0); RED BLOOD COUNT 4.23 X10^6/uL (3.5-5.4); RED CELL DISTRIBUTION WIDTH 13.8 % (11.6-16.5)
[2019-11-26 06:44] LABS: ALANINE AMINOTRANSFERASE 21 Units/L (12-78); ALBUMIN 3.1 g/dL (3.4-5.0); ALKALINE PHOSPHATASE 89 Units/L (46-116); ASPARTATE AMINO TRANSFERASE 18 Units/L (15-37); BLOOD UREA NITROGEN 12 mg/dL (7-18); CALCIUM 8.7 mg/dL (8.5-10.1); CARBON DIOXIDE 25.3 mmol/L (21-32); CHLORIDE 100 mmol/L (98-107); COR CA(FOR HYPOALB) 9.4 mg/dL (8.5-10.1); COR NA(FOR HYPERGLY) 135 mmol/L (136-145); CREATININE 0.74 mg/dL (0.55-1.02); SODIUM 134 mmol/L (136-145); TOTAL PROTEIN 6.6 g/dL (6.4-8.2); eGFR NON BLACK RACES > 60 (>60)
[2019-11-26] MEDS ORDERED: K-RIDER 10 MEQ/NS 100 ML 10 MEQ/100 ML BAG IV PRN (06:51)
[2019-11-26] MEDS ORDERED: MICRO K EXTEN CAP 10 MEQ PO PRN (06:51)
[2019-11-26] MEDS ORDERED: POTASSIUM CHL 40 MEQ/NS 0.45% 500 ML IV PRN (06:51)
[2019-11-26] MEDS ORDERED: POTASSIUM CHL 60 MEQ/NS 0.45% 500 ML IV PRN (06:51)
[2019-11-26] MEDS ORDERED: POTASSIUM CHLORIDE LIQ 20 MEQ UDC PO PRN (06:51)
[2019-11-26] MEDS ORDERED: KLOR-CON PO PRN (06:51)
[2019-11-26] MEDS ORDERED: ZESTRIL TAB 20 MG ONE ×2 (09:18→20:37)
[2019-11-26] MEDS: QUESTRAN POWDER FOR ORAL SUSP PO SCH (09:29)
[2019-11-26] MEDS: CITRACAL + VITAMIN D PO SCH (09:29)
[2019-11-26] MEDS: PROTONIX INJ 40 MG VIAL IVP SCH ×2 (09:29→22:03)
[2019-11-26] MEDS: MYLICON TAB 80 MG CHEW PO SCH ×2 (09:29→22:02)
[2019-11-26] MEDS: APRESOLINE TAB 25 MG PO SCH ×4 (09:29→22:02)
[2019-11-26] MEDS: MILK OF MAGNESIA PO SCH ×2 (09:30→22:03)
[2019-11-26] MEDS: ZESTRIL TAB 20 MG PO SCH ×2 (09:30→22:03)
[2019-11-26] MEDS: JANUVIA PO SCH (09:30)
[2019-11-26] MEDS: VITAMIN C PO SCH ×2 (09:30→22:03)
[2019-11-26] MEDS: FERROUS GLUCONATE PO SCH (09:30)
[2019-11-26] MEDS: TAB-A-VITE PO SCH (09:30)
[2019-11-26] MEDS: CALAN SR 240 MG PO SCH (09:30)
[2019-11-26] MEDS: LEVAQUIN PREMIX IV 500 MG 500 MG/100 ML BAG IV SCH (09:37)
[2019-11-26] MEDS: NS 1000 ML 1,000 ML IV SCH ×2 (12:08→12:09)
[2019-11-26] MEDS: K-DUR TAB 20 MEQ PO PRN ×2 (14:35→17:31)
[2019-11-26] MEDS: SYNTHROID 75 mcg TAB PO SCH (17:30)
--- NOTE | 2019-11-26 20:48 | PCM.PROG ---
Progress Note - Progress Note for Day of Date of Exam: 11/24/19 - Subjective Subjective: IS BEING TREATED FOR HYPONATREMIA, ACUTE KIDNEY INJURY, HYPOTHYROIDISM, AND VOLUME DEPLETION. TODAY, SHE IS ALERT AND ORIENTED, LYING IN BED ON MORNING ROUNDS. SHE CONTINUES WITH COMPLAINTS OF WEAKENSS TODAY. ON EXAMINATION, RASH NOTED TO CHEST, SLIGHTLY IMPROVED SINCE PREVIOUS DAYS. HEART IS REGULAR IN RATE AND RHYTHM. BILATERAL LUNGS ARE NOTED WITH DIMINISHED LUNG SOUNDS THROUGHOUT. ABDOMEN IS ROUND, SOFT, AND NON-TENDER WITH NORMAL BOWEL SOUNDS NOTED IN ALL QUADRANTS. LEFT HAND CONTINUES WITH SWELLING. HER VITALS THIS MORNING ARE: 99.4-086-15-100%-172/75. LABS WERE OBTAINED. ABNORMAL LAB VALUES INCLUDE THE FOLLOWING: SODIUN 134, GLUCOSE 107, ALBUMIN 3.0. WOUND CULTURE OF CHEST REVEALS GROWTH OF STAPHYLOCOCCUS AUREUS. AN EGD WAS PERFORMED YESTERDAY AND REVEALED: Moderately severe erosive distal esophagitis with a stricture and irregular Z-line, severe erosive gastritis, and duodenal bulb ulcer with a clean white base. SHE IS CURRENTLY RECEIVING NORMAL SALINE AT 75 ML /HR, LOVENOX 40MG SC DAILY, PROTONIX IV BID, LEVAQUIN 500MG IV DAILY, AND HOME MEDICATIONS WERE RESUMED. WE WILL CONTINUE WITH CURRENT PLAN OF CARE TODAY. OTHERWISE, WE WILL FOLLOW UP WITH AM LABS AND CONTINUE TO MONITOR. - Past Medical Family Social History Past Med/Fam/Surg Hx: No changes since H&P Allergies: Allergies tuberculin,PPD,multi-puncture Allergy (Verified 08/17/18 17:34) - Review of Systems ROS: No change since H&P - Vital Signs and I&O's Vital Signs: Temperature 98.3 F Pulse Rate [Left Brachial] 83 Pulse Rate 77 Respiratory Rate 18 Blood Pressure [Left Arm] 150/65 Blood Pressure 150/71 O2 Sat by Pulse Oximetry 97 Intake and Output: Intake & Output 11/24/19 11/25/19 11/26/19 11/27/19 11:59 11:59 11:59 11:59 Intake Total 2491 / 2491 2240 / 2240 2192 / 2192 1320 / 1320 Output Total 2300 / 2300 Balance 191 / 191 2240 / 2240 2192 / 2192 1320 / 1320 - Physical Exam Oriented: Normal Eyes: Normal Ear: Normal Nose: Normal Throat: Normal Respiratory: Generalized, Diminished Cardiovascular: Normal : Normal Auscultation: Bowel Sounds: Normal Tenderness: Normal Skin: Rash, Red Musculoskeletal: Left, Hand, Swelling, Tender Psychiatric: Normal Mood Description: Calm Affect: Normal Speech Pattern: Clear, Appropriate - Laboratory and Diagnostics Result Diagrams: 11/26/19 05:16 11/26/19 19:34 Labs: 11/21/19 11:00 Chest Gram Stain - Final 11/21/19 11:00 Chest Wound Culture - Final Staphylococcus Aureus Laboratory WBC 6.0 X10^3/uL (3.6-10.0) 11/26/19 05:16 RBC 4.23 X10^6/uL (3.5-5.4) 11/26/19 05:16 Hgb 13.4 g/dL (12.0-16.0) 11/26/19 05:16 Hct 38.3 % (36.0-47.0) 11/26/19 05:16 MCV 90.7 fL (80.0-100.0) 11/26/19 05:16 MCH 31.7 pg (27.0-34.0) 11/26/19 05:16 MCHC 34.9 g/dL (33.0-35.0) 11/26/19 05:16 RDW 13.8 % (11.6-16.5) 11/26/19 05:16 Plt Count 275 X10^3/uL (150.0-450.0) 11/26/19 05:16 MPV 6.9 fL (7.4-11.0) L 11/26/19 05:16 Neut % (Auto) 54.6 % (42.0-75.0) 11/26/19 05:16 Lymph % (Auto) 20.3 % (21.0-51.0) L 11/26/19 05:16 [place] % (Auto) 15.8 % (0.0-13.0) H 11/26/19 05:16 Eos % (Auto) 8.4 % (0.9-2.9) H 11/26/19 05:16 Baso % (Auto) 0.9 % (0.2-1.0) 11/26/19 05:16 Neut # (Auto) 3.2 x10^3/uL (2.2-4.8) 11/26/19 05:16 Lymph # (Auto) 1.2 X10^3/uL (1.3-2.9) L 11/26/19 05:16 [place] # (Auto) 0.9 x10^3/uL (0.3-0.8) H 11/26/19 05:16 Eos # (Auto) 0.5 x10^3/uL (0.0-0.2) H 11/26/19 05:16 Baso # (Auto) 0.1 X10^3/uL (0.0-0.1) 11/26/19 05:16 Absolute Nucleated RBC 0.1 /100WBC 11/26/19 05:16 Sodium 134 mmol/L (136-145) L 11/26/19 05:16 Corrected Sodium 135 mmol/L (136-145) L 11/26/19 05:16 Potassium 4.2 mmol/L (3.5-5.1) 11/26/19 19:34 Chloride 100 mmol/L (98-107) 11/26/19 05:16 Carbon Dioxide 25.3 mmol/L (21-32) 11/26/19 05:16 BUN 12 mg/dL (7-18) 11/26/19 05:16 Creatinine 0.74 mg/dL (0.55-1.02) 11/26/19 05:16 Est GFR (MDRD) Af Amer > 60 (>60) 11/26/19 05:16 Est GFR (MDRD) Non-Af > 60 (>60) 11/26/19 05:16 Glucose 130 mg/dL (65-99) H 11/26/19 05:16 POC Glucose (mg/dL) 139 mg/dL (65-99) H 11/21/19 16:45 Calculated Osmolality 259 mOsm/kg (285-295) L 11/20/19 05:17 Calcium 8.7 mg/dL (8.5-10.1) 11/26/19 05:16 Corrected Calcium 9.4 mg/dL (8.5-10.1) 11/26/19 05:16 Magnesium 2.0 mg/dL (1.7-2.9) 11/26/19 05:16 Total Bilirubin 0.50 mg/dL (0.2-1.0) 11/26/19 05:16 AST 18 Units/L (15-37) 11/26/19 05:16 ALT 21 Units/L (12-78) 11/26/19 05:16 Alkaline Phosphatase 89 Units/L (46-116) 11/26/19 05:16 Creatine Kinase 81 Units/L (26-192) 11/25/19 04:04 CK-MB (CK-2) 2.4 ng/mL (0-4.0) 11/25/19 04:04 CK/CKMB % Calc 3.0 % (<4) 11/25/19 04:04 Troponin I 0.02 ng/mL (0-1.5) 11/25/19 04:04 Total Protein 6.6 g/dL (6.4-8.2) 11/26/19 05:16 Albumin 3.1 g/dL (3.4-5.0) L 11/26/19 05:16 Globulin 3.5 g/dL (2.5-4.5) 11/26/19 05:16 Albumin/Globulin Ratio 0.9 Ratio (1.1-2.1) L 11/26/19 05:16 TSH 3rd Generation 4.458 uIU/mL (0.358-3.74) H 11/20/19 05:17 Free Cortisol 1.37 ug/dL 11/20/19 05:17 Specimen Type Catherized urine 11/20/19 11:00 Urine Color Yellow (YELLOW) 11/20/19 11:00 Urine Appearance Hazy (CLEAR) 11/20/19 11:00 Urine pH 6.0 (5.0 - 8.0) 11/20/19 11:00 Ur Specific [place] 1.005 (1.000-1.030) 11/20/19 11:00 Urine Protein 1+ (NEGATIVE) 11/20/19 11:00 Urine Glucose (UA) Negative (NEGATIVE) 11/20/19 11:00 Urine Ketones Negative (NEGATIVE) 11/20/19 11:00 Urine Occult Blood Negative (NEGATIVE) 11/20/19 11:00 Urine Nitrite Negative (NEGATIVE) 11/20/19 11:00 Urine Bilirubin Negative (NEGATIVE) 11/20/19 11:00 Urine Urobilinogen Normal (NORMAL) 11/20/19 11:00 Ur Leukocyte Esterase Negative (NEGATIVE) 11/20/19 11:00 Urine RBC None seen /HPF (0-3) 11/20/19 11:00 Urine WBC None seen /HPF (0-5) 11/20/19 11:00 Ur Squamous Epith Cells Negative /HPF (NEGATIVE) 11/20/19 11:00 Urine Bacteria Negative /HPF (NEGATIVE) 11/20/19 11:00 Urine Mucus Few /HPF (NEGATIVE) 11/20/19 11:00 Ur Culture Indicated? No/not indicated 11/20/19 11:00 Ur Random Sodium 21 mmol/L (40-220) L 11/20/19 11:00 Urine Creatinine 5.91 mg/dL (29-226) L 11/20/19 11:00 Tissue Pathology To follow 11/23/19 08:21 - Plan (1) Acute hyponatremia Status: Acute Plan: NS AT 125ML/HR, HOLD LASIX, CONTINUE TO MONITOR (2) Staphylococcus aureus infection Status: Acute Plan: LEVAQUIN 500MG IV DAILY, CONTINUE TO MONITOR (3) Chronic kidney disease (CKD) Status: Acute Qualifiers: Chronic kidney disease stage: unspecified stage Qualified Code(s): N18.9 - Chronic kidney disease, unspecified Plan: NS AT 125ML/HR, HOLD LASIX, CONTINUE TO MONITOR (4) Hypothyroidism Status: Chronic Qualifiers: Hypothyroidism type: acquired Qualified Code(s): E03.9 - Hypothyroidism, unspecified Plan: SYNTHROID 75 MCG PO DAILY, CONTINUE TO MONITOR (5) Volume depletion Status: Resolved (6) Erosive gastritis Status: Acute Plan: PROTONIX 40MG IV BID, CONTINUE TO MONITOR (7) Erosive esophagitis Status: Acute Plan: PROTONIX 40MG IV BID, CONTINUE TO MONITOR
[2019-11-26] MEDS: LIPITOR TAB 20 MG PO SCH (22:02)
[2019-11-26] MEDS: TRAVATAN Z EACHEYE SCH (22:03)
[2019-11-27] MEDS: NS 1000 ML 1,000 ML IV SCH (00:10)
[2019-11-27] MEDS: ARTIFICIAL TEARS DROPS EACHEYE SCH ×2 (06:29→13:59)
[2019-11-27 06:38] LABS: BASOPHILS # (AUTO) 0.1 X10^3/uL (0.0-0.1); BASOPHILS % (AUTO) 1.2 % (0.2-1.0); EOSINOPHILS # (AUTO) 0.4 x10^3/uL (0.0-0.2); EOSINOPHILS % (AUTO) 7.3 % (0.9-2.9); HEMATOCRIT 39.2 % (36.0-47.0); HEMOGLOBIN 13.6 g/dL (12.0-16.0); LYMPHOCYTES # (AUTO) 1.2 X10^3/uL (1.3-2.9); LYMPHOCYTES % (AUTO) 20.8 % (21.0-51.0); MEAN CORPUSCULAR HEMOGLOBIN 31.4 pg (27.0-34.0); MEAN CORPUSCULAR HGB CONC 34.8 g/dL (33.0-35.0); MEAN CORPUSCULAR VOLUME 90.2 fL (80.0-100.0); MEAN PLATELET VOLUME 6.8 fL (7.4-11.0); MONOCYTES # (AUTO) 0.8 x10^3/uL (0.3-0.8); NEUTROPHILS # (AUTO) 3.1 x10^3/uL (2.2-4.8); NEUTROPHILS % (AUTO) 55.7 % (42.0-75.0); PLATELET COUNT 279 X10^3/uL (150.0-450.0); RED BLOOD COUNT 4.35 X10^6/uL (3.5-5.4); RED CELL DISTRIBUTION WIDTH 13.6 % (11.6-16.5); WHITE BLOOD COUNT 5.6 X10^3/uL (3.6-10.0)
[2019-11-27 06:45] LABS: ALANINE AMINOTRANSFERASE 19 Units/L (12-78); ALBUMIN 3.1 g/dL (3.4-5.0); ALKALINE PHOSPHATASE 73 Units/L (46-116); ASPARTATE AMINO TRANSFERASE 17 Units/L (15-37); BLOOD UREA NITROGEN 13 mg/dL (7-18); CALCIUM 8.8 mg/dL (8.5-10.1); CARBON DIOXIDE 24.9 mmol/L (21-32); CHLORIDE 101 mmol/L (98-107); COR CA(FOR HYPOALB) 9.5 mg/dL (8.5-10.1); COR NA(FOR HYPERGLY) 136 mmol/L (136-145); CREATININE 0.75 mg/dL (0.55-1.02); SODIUM 135 mmol/L (136-145); TOTAL PROTEIN 6.5 g/dL (6.4-8.2); eGFR NON BLACK RACES > 60 (>60)
[2019-11-27] MEDS ORDERED: ZESTRIL TAB 20 MG ONE (08:38)
[2019-11-27] MEDS: LEVAQUIN PREMIX IV 500 MG 500 MG/100 ML BAG IV SCH (09:06)
[2019-11-27] MEDS: TAB-A-VITE PO SCH (09:07)
[2019-11-27] MEDS: QUESTRAN POWDER FOR ORAL SUSP PO SCH (09:07)
[2019-11-27] MEDS: MYLICON TAB 80 MG CHEW PO SCH (09:08)
[2019-11-27] MEDS: ZESTRIL TAB 20 MG PO SCH (09:08)
[2019-11-27] MEDS: CALAN SR 240 MG PO SCH (09:08)
[2019-11-27] MEDS: VITAMIN C PO SCH (09:08)
[2019-11-27] MEDS: APRESOLINE TAB 25 MG PO SCH ×3 (09:08→12:04)
[2019-11-27] MEDS: JANUVIA PO SCH (09:08)
[2019-11-27] MEDS: CITRACAL + VITAMIN D PO SCH (09:08)
[2019-11-27] MEDS: MILK OF MAGNESIA PO SCH (09:11)
[2019-11-27] MEDS: PROTONIX INJ 40 MG VIAL IVP SCH (09:11)
[2019-11-27] MEDS: FERROUS GLUCONATE PO SCH (09:12)
[2019-11-27] MEDS: ULTRAM PO PRN (11:46)
[2019-11-27] MEDS ORDERED: NITRODUR PATCH 0.4 MG/HR TD SCH (12:00)
[2019-11-27] MEDS ORDERED: CATAPRES-TTS-3 TD SCH (12:00)
[2019-11-27 14:24] VITALS: BP 145/77
--- NOTE | 2019-11-27 19:24 | PCM.PROG ---
Progress Note - Progress Note for Day of Date of Exam: 11/25/19 - Past Medical Family Social History Past Med/Fam/Surg Hx: No changes since H&P Allergies: Allergies tuberculin,PPD,multi-puncture Allergy (Verified 08/17/18 17:34) - Review of Systems ROS: No change since H&P - Vital Signs and I&O's Vital Signs: Temperature 97.8 F Pulse Rate [Left Brachial] 110 Pulse Rate 77 Respiratory Rate 18 Blood Pressure [Left Arm] 145/77 Blood Pressure 150/71 O2 Sat by Pulse Oximetry 98 Intake and Output: Intake & Output 11/25/19 11/26/19 11/27/19 11/28/19 11:59 11:59 11:59 11:59 Intake Total 2240 / 2240 2192 / 2192 2242 / 2242 Balance 2240 / 2240 2192 / 2192 2242 / 2242 - Physical Exam Oriented: Normal Eyes: Normal Ear: Normal Nose: Normal Throat: Normal Respiratory: Generalized, Diminished Cardiovascular: Normal : Normal Auscultation: Bowel Sounds: Normal Tenderness: Normal Skin: Rash, Red Musculoskeletal: Left, Hand, Swelling, Tender Psychiatric: Normal Mood Description: Calm Affect: Normal Speech Pattern: Clear, Appropriate - Laboratory and Diagnostics Result Diagrams: 11/27/19 05:35 11/27/19 05:35 Labs: 11/21/19 11:00 Chest Gram Stain - Final 11/21/19 11:00 Chest Wound Culture - Final Staphylococcus Aureus Laboratory WBC 5.6 X10^3/uL (3.6-10.0) 11/27/19 05:35 RBC 4.35 X10^6/uL (3.5-5.4) 11/27/19 05:35 Hgb 13.6 g/dL (12.0-16.0) 11/27/19 05:35 Hct 39.2 % (36.0-47.0) 11/27/19 05:35 MCV 90.2 fL (80.0-100.0) 11/27/19 05:35 MCH 31.4 pg (27.0-34.0) 11/27/19 05:35 MCHC 34.8 g/dL (33.0-35.0) 11/27/19 05:35 RDW 13.6 % (11.6-16.5) 11/27/19 05:35 Plt Count 279 X10^3/uL (150.0-450.0) 11/27/19 05:35 MPV 6.8 fL (7.4-11.0) L 11/27/19 05:35 Neut % (Auto) 55.7 % (42.0-75.0) 11/27/19 05:35 Lymph % (Auto) 20.8 % (21.0-51.0) L 11/27/19 05:35 [place] % (Auto) 15.0 % (0.0-13.0) H 11/27/19 05:35 Eos % (Auto) 7.3 % (0.9-2.9) H 11/27/19 05:35 Baso % (Auto) 1.2 % (0.2-1.0) H 11/27/19 05:35 Neut # (Auto) 3.1 x10^3/uL (2.2-4.8) 11/27/19 05:35 Lymph # (Auto) 1.2 X10^3/uL (1.3-2.9) L 11/27/19 05:35 [place] # (Auto) 0.8 x10^3/uL (0.3-0.8) 11/27/19 05:35 Eos # (Auto) 0.4 x10^3/uL (0.0-0.2) H 11/27/19 05:35 Baso # (Auto) 0.1 X10^3/uL (0.0-0.1) 11/27/19 05:35 Absolute Nucleated RBC 0.0 /100WBC 11/27/19 05:35 Sodium 135 mmol/L (136-145) L 11/27/19 05:35 Corrected Sodium 136 mmol/L (136-145) 11/27/19 05:35 Potassium 3.8 mmol/L (3.5-5.1) 11/27/19 05:35 Chloride 101 mmol/L (98-107) 11/27/19 05:35 Carbon Dioxide 24.9 mmol/L (21-32) 11/27/19 05:35 BUN 13 mg/dL (7-18) 11/27/19 05:35 Creatinine 0.75 mg/dL (0.55-1.02) 11/27/19 05:35 Est GFR (MDRD) Af Amer > 60 (>60) 11/27/19 05:35 Est GFR (MDRD) Non-Af > 60 (>60) 11/27/19 05:35 Glucose 146 mg/dL (65-99) H 11/27/19 05:35 POC Glucose (mg/dL) 139 mg/dL (65-99) H 11/21/19 16:45 Calculated Osmolality 259 mOsm/kg (285-295) L 11/20/19 05:17 Calcium 8.8 mg/dL (8.5-10.1) 11/27/19 05:35 Corrected Calcium 9.5 mg/dL (8.5-10.1) 11/27/19 05:35 Magnesium 2.0 mg/dL (1.7-2.9) 11/26/19 05:16 Total Bilirubin 0.50 mg/dL (0.2-1.0) 11/27/19 05:35 AST 17 Units/L (15-37) 11/27/19 05:35 ALT 19 Units/L (12-78) 11/27/19 05:35 Alkaline Phosphatase 73 Units/L (46-116) 11/27/19 05:35 Creatine Kinase 81 Units/L (26-192) 11/25/19 04:04 CK-MB (CK-2) 2.4 ng/mL (0-4.0) 11/25/19 04:04 CK/CKMB % Calc 3.0 % (<4) 11/25/19 04:04 Troponin I 0.02 ng/mL (0-1.5) 11/25/19 04:04 Total Protein 6.5 g/dL (6.4-8.2) 11/27/19 05:35 Albumin 3.1 g/dL (3.4-5.0) L 11/27/19 05:35 Globulin 3.4 g/dL (2.5-4.5) 11/27/19 05:35 Albumin/Globulin Ratio 0.9 Ratio (1.1-2.1) L 11/27/19 05:35 TSH 3rd Generation 4.458 uIU/mL (0.358-3.74) H 11/20/19 05:17 Free Cortisol 1.37 ug/dL 02/17/20 05:17 Specimen Type Catherized urine 11/20/19 11:00 Urine Color Yellow (YELLOW) 11/20/19 11:00 Urine Appearance Hazy (CLEAR) 11/20/19 11:00 Urine pH 6.0 (5.0 - 8.0) 11/20/19 11:00 Ur Specific [place] 1.005 (1.000-1.030) 11/20/19 11:00 Urine Protein 1+ (NEGATIVE) 11/20/19 11:00 Urine Glucose (UA) Negative (NEGATIVE) 11/20/19 11:00 Urine Ketones Negative (NEGATIVE) 11/20/19 11:00 Urine Occult Blood Negative (NEGATIVE) 11/20/19 11:00 Urine Nitrite Negative (NEGATIVE) 11/20/19 11:00 Urine Bilirubin Negative (NEGATIVE) 11/20/19 11:00 Urine Urobilinogen Normal (NORMAL) 11/20/19 11:00 Ur Leukocyte Esterase Negative (NEGATIVE) 11/20/19 11:00 Urine RBC None seen /HPF (0-3) 11/20/19 11:00 Urine WBC None seen /HPF (0-5) 11/20/19 11:00 Ur Squamous Epith Cells Negative /HPF (NEGATIVE) 11/20/19 11:00 Urine Bacteria Negative /HPF (NEGATIVE) 11/20/19 11:00 Urine Mucus Few /HPF (NEGATIVE) 11/20/19 11:00 Ur Culture Indicated? No/not indicated 11/20/19 11:00 Ur Random Sodium 21 mmol/L (40-220) L 11/20/19 11:00 Urine Creatinine 5.91 mg/dL (29-226) L 11/20/19 11:00 Tissue Pathology To follow 11/23/19 08:21 - Plan (1) Acute hyponatremia Status: Acute Plan: NS AT 125ML/HR, HOLD LASIX, CONTINUE TO MONITOR (2) Staphylococcus aureus infection Status: Acute Plan: LEVAQUIN 500MG IV DAILY, CONTINUE TO MONITOR (3) Chronic kidney disease (CKD) Status: Acute Qualifiers: Chronic kidney disease stage: unspecified stage Qualified Code(s): N18.9 - Chronic kidney disease, unspecified Plan: NS AT 125ML/HR, HOLD LASIX, CONTINUE TO MONITOR (4) Hypothyroidism Status: Chronic Qualifiers: Hypothyroidism type: acquired Qualified Code(s): E03.9 - Hypothyroidism, unspecified Plan: SYNTHROID 75 MCG PO DAILY, CONTINUE TO MONITOR (5) Volume depletion Status: Resolved (6) Erosive gastritis Status: Acute Plan: PROTONIX 40MG IV BID, CONTINUE TO MONITOR (7) Erosive esophagitis Status: Acute Plan: PROTONIX 40MG IV BID, CONTINUE TO MONITOR
--- NOTE | 2019-11-27 19:28 | PCM.PROG ---
Progress Note - Progress Note for Day of Date of Exam: 11/26/19 - Subjective Subjective: IS BEING TREATED FOR HYPONATREMIA, ACUTE KIDNEY INJURY, HYPOTHYROIDISM, AND VOLUME DEPLETION. TODAY, SHE IS ALERT AND ORIENTED, LYING IN BED ON MORNING ROUNDS. SHE CONTINUES WITH COMPLAINTS OF WEAKENSS TODAY. ON EXAMINATION, RASH NOTED TO CHEST IS RESOLVING. HEART IS REGULAR IN RATE AND RHYTHM. BILATERAL LUNGS ARE NOTED WITH DIMINISHED LUNG SOUNDS THROUGHOUT. ABDOMEN IS ROUND, SOFT, AND NON-TENDER WITH NORMAL BOWEL SOUNDS NOTED IN ALL QUADRANTS. LEFT HAND CONTINUES WITH SWELLING. HER VITALS THIS MORNING ARE: 97.8-81-18-97%-138/97. LABS WERE OBTAINED. ABNORMAL LAB VALUES INCLUDE THE FOLLOWING: SODIUM 134, POTASSIUM 3.3, GLUCOSE 130, ALBUMIN 3.1. SHE IS CURRENTLY RECEIVING NORMAL SALINE AT 75 ML/HR, LOVENOX 40MG SC DAILY, PROTONIX IV BID, LEVAQUIN 500MG IV DAILY, AND HOME MEDICATIONS WERE RESUMED. WE WILL CONTINUE WITH IV HYDRATION AND CURRENT PLAN OF CARE TODAY. WE WILL START THE MAGNESIUM AND POTASSIUM PROTOCOLS. OTHERWISE, WE WILL FOLLOW UP WITH AM LABS AND CONTINUE TO MONITOR. - Past Medical Family Social History Past Med/Fam/Surg Hx: No changes since H&P Allergies: Allergies tuberculin,PPD,multi-puncture Allergy (Verified 08/17/18 17:34) - Review of Systems ROS: No change since H&P - Vital Signs and I&O's Vital Signs: Temperature 97.8 F Pulse Rate [Left Brachial] 110 Pulse Rate 77 Respiratory Rate 18 Blood Pressure [Left Arm] 145/77 Blood Pressure 150/71 O2 Sat by Pulse Oximetry 98 Intake and Output: Intake & Output 11/25/19 11/26/19 11/27/19 11/28/19 11:59 11:59 11:59 11:59 Intake Total 2240 / 2240 2192 / 2192 2242 / 224 Balance 2240 / 2240 219 / 2192241 / 2241 - Physical Exam Oriented: Normal Eyes: Normal Ear: Normal Nose: Normal Throat: Normal Respiratory: Generalized, Diminished Cardiovascular: Normal : Normal Auscultation: Bowel Sounds: Normal Tenderness: Normal Skin: Rash, Red Musculoskeletal: Left, Hand, Swelling, Tender Psychiatric: Normal Mood Description: Calm Affect: Normal Speech Pattern: Clear, Appropriate - Laboratory and Diagnostics Result Diagrams: 11/27/19 05:35 02/24/20 05:35 Labs: 11/21/19 11:00 Chest Gram Stain - Final 11/21/19 11:00 Chest Wound Culture - Final Staphylococcus Aureus Laboratory WBC 5.6 X10^3/uL (3.6-10.0) 11/27/19 05:35 RBC 4.35 X10^6/uL (3.5-5.4) 11/27/19 05:35 Hgb 13.6 g/dL (12.0-16.0) 11/27/19 05:35 Hct 39.2 % (36.0-47.0) 11/27/19 05:35 MCV 90.2 fL (80.0-100.0) 11/27/19 05:35 MCH 31.4 pg (27.0-34.0) 11/27/19 05:35 MCHC 34.8 g/dL (33.0-35.0) 11/27/19 05:35 RDW 13.6 % (11.6-16.5) 11/27/19 05:35 Plt Count 279 X10^3/uL (150.0-450.0) 11/27/19 05:35 MPV 6.8 fL (7.4-11.0) L 11/27/19 05:35 Neut % (Auto) 55.7 % (42.0-75.0) 11/27/19 05:35 Lymph % (Auto) 20.8 % (21.0-51.0) L 11/27/19 05:35 [place] % (Auto) 15.0 % (0.0-13.0) H 11/27/19 05:35 Eos % (Auto) 7.3 % (0.9-2.9) H 11/27/19 05:35 Baso % (Auto) 1.2 % (0.2-1.0) H 11/27/19 05:35 Neut # (Auto) 3.1 x10^3/uL (2.2-4.8) 11/27/19 05:35 Lymph # (Auto) 1.2 X10^3/uL (1.3-2.9) L 11/27/19 05:35 [place] # (Auto) 0.8 x10^3/uL (0.3-0.8) 11/27/19 05:35 Eos # (Auto) 0.4 x10^3/uL (0.0-0.2) H 11/27/19 05:35 Baso # (Auto) 0.1 X10^3/uL (0.0-0.1) 11/27/19 05:35 Absolute Nucleated RBC 0.0 /100WBC 11/27/19 05:35 Sodium 135 mmol/L (136-145) L 11/27/19 05:35 Corrected Sodium 136 mmol/L (136-145) 11/27/19 05:35 Potassium 3.8 mmol/L (3.5-5.1) 11/27/19 05:35 Chloride 101 mmol/L (98-107) 11/27/19 05:35 Carbon Dioxide 24.9 mmol/L (21-32) 11/27/19 05:35 BUN 13 mg/dL (7-18) 11/27/19 05:35 Creatinine 0.75 mg/dL (0.55-1.02) 11/27/19 05:35 Est GFR (MDRD) Af Amer > 60 (>60) 11/27/19 05:35 Est GFR (MDRD) Non-Af > 60 (>60) 11/27/19 05:35 Glucose 146 mg/dL (65-99) H 11/27/19 05:35 POC Glucose (mg/dL) 139 mg/dL (65-99) H 11/21/19 16:45 Calculated Osmolality 259 mOsm/kg (285-295) L 11/20/19 05:17 Calcium 8.8 mg/dL (8.5-10.1) 11/27/19 05:35 Corrected Calcium 9.5 mg/dL (8.5-10.1) 11/27/19 05:35 Magnesium 2.0 mg/dL (1.7-2.9) 11/26/19 05:16 Total Bilirubin 0.50 mg/dL (0.2-1.0) 11/27/19 05:35 AST 17 Units/L (15-37) 11/27/19 05:35 ALT 19 Units/L (12-78) 11/27/19 05:35 Alkaline Phosphatase 73 Units/L (46-116) 11/27/19 05:35 Creatine Kinase 81 Units/L (26-192) 11/25/19 04:04 CK-MB (CK-2) 2.4 ng/mL (0-4.0) 11/25/19 04:04 CK/CKMB % Calc 3.0 % (<4) 11/25/19 04:04 Troponin I 0.02 ng/mL (0-1.5) 11/25/19 04:04 Total Protein 6.5 g/dL (6.4-8.2) 11/27/19 05:35 Albumin 3.1 g/dL (3.4-5.0) L 11/27/19 05:35 Globulin 3.4 g/dL (2.5-4.5) 11/27/19 05:35 Albumin/Globulin Ratio 0.9 Ratio (1.1-2.1) L 11/27/19 05:35 TSH 3rd Generation 4.458 uIU/mL (0.358-3.74) H 11/20/19 05:17 Free Cortisol 1.37 ug/dL 11/20/19 05:17 Specimen Type Catherized urine 11/20/19 11:00 Urine Color Yellow (YELLOW) 11/20/19 11:00 Urine Appearance Hazy (CLEAR) 11/20/19 11:00 Urine pH 6.0 (5.0 - 8.0) 11/20/19 11:00 Ur Specific [place] 1.005 (1.000-1.030) 11/20/19 11:00 Urine Protein 1+ (NEGATIVE) 11/20/19 11:00 Urine Glucose (UA) Negative (NEGATIVE) 11/20/19 11:00 Urine Ketones Negative (NEGATIVE) 11/20/19 11:00 Urine Occult Blood Negative (NEGATIVE) 11/20/19 11:00 Urine Nitrite Negative (NEGATIVE) 11/20/19 11:00 Urine Bilirubin Negative (NEGATIVE) 11/20/19 11:00 Urine Urobilinogen Normal (NORMAL) 11/20/19 11:00 Ur Leukocyte Esterase Negative (NEGATIVE) 11/20/19 11:00 Urine RBC None seen /HPF (0-3) 11/20/19 11:00 Urine WBC None seen /HPF (0-5) 11/20/19 11:00 Ur Squamous Epith Cells Negative /HPF (NEGATIVE) 11/20/19 11:00 Urine Bacteria Negative /HPF (NEGATIVE) 11/20/19 11:00 Urine Mucus Few /HPF (NEGATIVE) 11/20/19 11:00 Ur Culture Indicated? No/not indicated 11/20/19 11:00 Ur Random Sodium 21 mmol/L (40-220) L 11/20/19 11:00 Urine Creatinine 5.91 mg/dL (29-226) L 11/20/19 11:00 Tissue Pathology To follow 11/23/19 08:21 - Plan (1) Acute hyponatremia Status: Acute Plan: NS AT 125ML/HR, HOLD LASIX, CONTINUE TO MONITOR (2) Staphylococcus aureus infection Status: Acute Plan: LEVAQUIN 500MG IV DAILY, CONTINUE TO MONITOR (3) Chronic kidney disease (CKD) Status: Acute Qualifiers: Chronic kidney disease stage: unspecified stage Qualified Code(s): N18.9 - Chronic kidney disease, unspecified Plan: NS AT 125ML/HR, HOLD LASIX, CONTINUE TO MONITOR (4) Hypothyroidism Status: Chronic Qualifiers: Hypothyroidism type: acquired Qualified Code(s): E03.9 - Hypothyroidism, unspecified Plan: SYNTHROID 75 MCG PO DAILY, CONTINUE TO MONITOR (5) Volume depletion Status: Resolved (6) Erosive gastritis Status: Acute Plan: PROTONIX 40MG IV BID, CONTINUE TO MONITOR (7) Erosive esophagitis Status: Acute Plan: PROTONIX 40MG IV BID, CONTINUE TO MONITOR
== END 2019-11-27 14:15 | DRG 683 ==
LOC: ER 08:39 → ICU 11:26 → MED/SURG 11-25 17:40
PROVIDERS: ADMIT Internal Medicine; ATTEND Internal Medicine
DX: N17.8 Other acute kidney failure; K22.2 Esophageal obstruction; K29.00 Acute gastritis without bleeding; E03.8 Other specified hypothyroidism; I25.10 Atherosclerotic heart disease of native coronary artery without angina pectoris; E87.1 Hypo-osmolality and hyponatremia; R41.82 Altered mental status, unspecified; R21 Rash and other nonspecific skin eruption; E86.9 Volume depletion, unspecified; K26.9 Duodenal ulcer, unspecified as acute or chronic, without hemorrhage or perforation; E11.65 Type 2 diabetes mellitus with hyperglycemia; M79.642 Pain in left hand; G25.81 Restless legs syndrome; K21.9 Gastro-esophageal reflux disease without esophagitis; K22.10 Ulcer of esophagus without bleeding; I10 Essential (primary) hypertension; E78.49 Other hyperlipidemia; R13.11 Dysphagia, oral phase
CPT/HCPCS: 36415; 51701; 51702; 73130; 80053; 81001; 82530; 82550; 82553; 82570; 83735; 83880; 84132; 84300; 84443; 84484; 85025; 87070; 87075; 87077; 87186; 87205; 88305; 93005; 96365; 96367; 97110; 97162; 97166; 97530; 97535; 99100; 99284; A4222; C9113; J1650; J1956; J2704; J7030

== ENCOUNTER 2019-12-11 08:23 | Observation (INO) ==
[2019-12-11 08:39] VITALS: BMI 31.1
--- NOTE | 2019-12-11 09:02 | DR.GENAD ---
HPI Time Seen Time Seen by Provider: 12/11/19 09:01 Complaint/Symptoms Chief Complaint Doctors Comments: ELEVATED BP Chief Complaint:: PT TO ER WITH C/O > BNAT AND > B/P , PTS PCP CALLED AND PT IS TO BE SEEN IN ER , UPON ARRIVAL PT ALERT AND ORIENTED PT NO DISTRESS NOTED , PT C/O CHRONIC HIP PAIN ,,BR Source History Provided: Patient and Custodial Mode of Arrival Mode of Arrival: Wheelchair Timing Onset of Chief Complaint: 12/11/19 PMH PMH Past Medical History: Yes Past Medical History: Anemia, Arthritis, Asthma, CHF, Coronary Artery Disease, CVA, Depression, Diabetes, Dyslipidemia, GERD, Hypertension and Hypothyroidism Past Surgical History: Yes Surgical History: Angioplasty/Stents and GREEN BELT Surgery Family History History of Family Medical Conditions: Yes Family Medical History: Diabetes Mellitus, [place], Coronary Artery Disease and Sudden Cardiac Social History Does patient currently use any type of tobacco product: No Have you used tobacco products in the last 12 months: No Type of Tobacco Use: None Does any household member use tobacco: No Alcohol Use: None Do you use any recreational Drugs:: No Lives Where: Custodial infectious screening In the last 2 months have you had wt loss of >10#?: NO Have you had fever, night sweats or hemotysis?: No Have you traveled outside the country in the last 6 months?: No Isolation: Standard ROS Review of Systems Constitutional: No Symptoms Reported and See HPI Eyes: No Symptoms Reported and See HPI ENTM: No Symptoms Reported and See HPI Respiratoy: No Symptoms Reported and See HPI Cardiovascular: No Symptoms Reported and See HPI Gastrointestinal/Abdominal: No Symptoms Reported and See HPI Genitourinary: No Symptoms Reported and See HPI Neurological: No Symptoms Reported and See HPI Musculoskeletal: No Symptoms Reported and See HPI Integumentary: No Symptoms Reported and See HPI Hematologic/Lymphatic: No Symptoms Reported and See HPI Endocrine: No Symptoms Reported and See HPI Psychiatric: No Symptoms Reported and See HPI All Other Systems: Reviewed and Negative PE Vital Signs Vitals: Temperature 98.3 F Pulse Rate 69 Respiratory Rate 20 Blood Pressure [Left Arm] 145/77 Blood Pressure 132/84 O2 Sat by Pulse Oximetry 92 General Limitations: No Limitations General Appearance: Alert and In No Apparent Distress Head Head Exam: Normal Inspection Eyes Eye exam: Normal Appearance ENT ENT Exam: Normal Exam External Ear Exam: Normal External Inspection TM/Canal Exam: Bilateral: Normal Nose Exam: Normal Nose Exam Mouth Exam: Normal Inspection Throat Exam: Normal Inspection Neck Neck Exam: Normal Inspection Chest Chest Inspection: Normal Inspection Respiratory Respiratory Exam: Normal Lung Sounds Bilat Respiratory Exam: Bilateral: Clear to Auscultation Cardiovascular Cardiovascular Exam: Regular Rate and Normal Rhythm Abdominal Exam Abdominal Exam: Normal Inspection, Normal Bowel Sounds and Soft Extremities Extremities Exam: Normal Inspection Back Back Exam: Normal Inspection Neurologic Neurological Exam: Alert and Oriented X3 Psychiatric Psychiatric Exam: Normal Affect and Normal Mood Skin Skin Exam: Warm, Dry, Intact and Normal Color COURSE Treatment Treatment: SEE ORDERS. Consultation Consultation Comments: DISCUSSED PATIENT WITH DR. NIXON. HE WILL ADMIT PATIENT. Education/Counseling Education/Counseling: Patient Educated On: Diagnosis ROR Labs Reviewed Laboratory Results Reviewed?: Yes Laboratory: Sample Site Lb 12/11/19 12:00 ABG pH 7.500 (7.35-7.45) H 12/11/19 12:00 ABG pCO2 37.0 mmHg (35.0-45.0) 12/11/19 12:00 ABG pO2 89.0 mmHg (80.0-100.0) 12/11/19 12:00 ABG HCO3 28.9 mmol/L (22-26) H 12/11/19 12:00 ABG O2 Saturation 98.0 % (90-100) 12/11/19 12:00 ABG Base Excess 5.5 mmol/L (-2.0-2.0) H 12/11/19 12:00 Regan Test Na 12/11/19 12:00 A-a Gradient 14.0 mmHg 12/11/19 12:00 FiO2 21.0 12/11/19 12:00 Blood Gas Comments Mary well cb 12/11/19 12:00 Creatine Kinase 76 Units/L (26-192) 12/11/19 05:16 CK-MB (CK-2) 1.5 ng/mL (0-4.0) 12/11/19 05:16 CK/CKMB % Calc 2.0 % (<4) 12/11/19 05:16 Troponin I < 0.02 ng/mL (0-1.5) 12/11/19 05:16 Amylase 47 Units/L (25-115) 12/11/19 05:16 Lipase 177 Units/L (73-393) 12/11/19 05:16 Specimen Type Catherized urine 12/11/19 11:24 Urine Color Yellow (YELLOW) 12/11/19 11:24 Urine Appearance Hazy (CLEAR) 12/11/19 11:24 Urine pH 7.0 (5.0 - 8.0) 12/11/19 11:24 Ur Specific [place] 1.010 (1.000-1.030) 12/11/19 11:24 Urine Protein 3+ (NEGATIVE) 12/11/19 11:24 Urine Glucose (UA) 1+ (NEGATIVE) 12/11/19 11:24 Urine Ketones Negative (NEGATIVE) 12/11/19 11:24 Urine Occult Blood 1+ (NEGATIVE) 12/11/19 11:24 Urine Nitrite Negative (NEGATIVE) 12/11/19 11:24 Urine Bilirubin Negative (NEGATIVE) 12/11/19 11:24 Urine Urobilinogen Normal (NORMAL) 12/11/19 11:24 Ur Leukocyte Esterase 2+ (NEGATIVE) 12/11/19 11:24 Urine RBC 0-2 /HPF (0-3) 12/11/19 11:24 Urine WBC 0-2 /HPF (0-5) 12/11/19 11:24 Ur Squamous Epith Cells Rare /HPF (NEGATIVE) 12/11/19 11:24 Urine Bacteria Negative /HPF (NEGATIVE) 12/11/19 11:24 Ur Culture Indicated? No/not indicated 12/11/19 11:24 Acetone, Semi-Quant Negative (NEGATIVE) 12/11/19 05:16 Other Results Comments: LABS DONE THIS AM REVIWED AND NOTED. XRAY XRAY Interpreted by: Radiologist and Self EKG Rate: 97 [place]: Normal Rhythm: NSR and PVCs (BIGEMINI) Block: None Hypertrophy: LAE ST: Nonsp Opioid Opioid Risk Tool Age (Marcos box if 16-45): No History of Preadolescent Sexual Abuse: No Total: 0 Total Score Risk Category: Low Risk Copyright: Tadeo CHAHAL predicting aberrant behaviors Instructions Forms: Excuse From Work Patient Portal
[2019-12-11] MEDS ORDERED: CATAPRES TAB 0.1 MG PO ONE (09:37)
[2019-12-11] MEDS ORDERED: CATAPRES TAB 0.1 MG ONE (09:42)
[2019-12-11 09:55] LABS: AMYLASE 47 Units/L (25-115); CREATINE KINASE 76 Units/L (26-192); CREATINE KINASE MB 1.5 ng/mL (0-4.0); LIPASE 177 Units/L (73-393); TROPONIN I < 0.02 ng/mL (0-1.5)
[2019-12-11 11:47] LABS: BILIRUBIN,URINE NEGATIVE (NEGATIVE); BLOOD/HEMOGLOBIN,URINE 1+ (NEGATIVE); GLUCOSE, URINE 1+ (NEGATIVE); KETONES,URINE NEGATIVE (NEGATIVE); LEUKOCYTE ESTERASE ,URINE 2+ (NEGATIVE); NITRITES,URINE NEGATIVE (NEGATIVE); PROTEIN,URINE 3+ (NEGATIVE); UROBILINOGEN,URINE NORMAL (NORMAL)
[2019-12-11 11:55] LABS: APPEARANCE,URINE HAZY (CLEAR); BACTERIA,URINE NEGATIVE /HPF (NEGATIVE); COLOR,URINE YELLOW (YELLOW); RBC,URINE 0-2 /HPF (0-3); SQUAMOUS EPITHELIAL CELL,UR RARE /HPF (NEGATIVE)
--- NOTE | 2019-12-11 11:55 | RAD ---
HISTORYShortness of breathSTUDYCHEST, 1 VIEWCOMPARISONDecember 2018FINDINGSThe patient is rotated. The cardiac silhouette is enlarged with mild prominence of the central pulmonary vasculature.IMPRESSIONCardiomegaly with mild prominence of the central pulmonary vasculature.Electronically signed by: OLEG WOLFE (Dec 11, 2019 11:54:09)
--- NOTE | 2019-12-11 11:56 | CT ---
HISTORY:Altered mental statusStudy: CT brain without contrastComparison:09/09/2019Technique:Multiple axial images of the brain were obtained without administration of IV contrast. Dose reduction techniques including Automated Exposure Control (AEC) and adjustment of mA and kV were utilized.Findings:There is cerebral volume loss with nonspecific white matter hypoattenuation suggestive of chronic microvascular ischemic changes.There is calcified plaque within the carotid and vertebral arteries. There is chronic CSF density collection within the posterior fossa that may represent large arachnoid cyst with probable dysgenesis or encephalomalacia the cerebellum. No evidence of acute hemorrhage, midline shift, mass effect or abnormal extra-axial fluid collection. Prominence of the ventricles and cortical sulci is commensurate with volume loss.The soft tissues and osseous structures are unremarkable. The visualized paranasal sinuses are clear.IMPRESSION:1. Stable head CT as described.Electronically signed by: MASTER LAMB (Dec 11, 2019 12:56:25)
[2019-12-11 12:09] LABS: ABG BASE EXCESS 5.5 mmol/L (-2.0-2.0); ABG HCO3 28.9 mmol/L (22-26)
--- NOTE | 2019-12-11 12:26 | CT ---
HISTORYABD PAINSTUDYABDOMEN/PELVIS W/O CONCOMPARISONDecember 2018TECHNIQUEMultiple axial images of the abdomen and pelvis were obtained from the lung bases to the pubic symphysis without the administration of IV contrast. Dose reduction techniques including Automated Exposure Control (AEC) and adjustment of mA and kV were utilized.FINDINGSAreas of atelectasis and/or scarring are seen within the visualized lungs. The liver, spleen, pancreas, adrenals, and right kidney are grossly unremarkable in appearance given the limitations of this noncontrast exam. Small nonobstructing left renal calculi are noted. Surgical clips are seen within the gallbladder fossa. The appendix is not well visualized. No significant inflammatory changes are appreciated within the right lower quadrant. There is questionable mild thickening of the urinary bladder wall which may in part be due to lack of distension. Correlation with ultrasound may be helpful. Degenerative changes are seen within the visualized spine. IVC filter placement is again noted. Evaluation of the stomach, small bowel, and colon is limited without oral contrast. Scattered colonic diverticuli are noted primarily within the distal descending and sigmoid colon.IMPRESSIONSmall nonobstructing left renal calculi similar to prior exam.Cholecystectomy.Diverticulosis.Other findings as noted above.Electronically signed by: OLEG WOLFE (Dec 11, 2019 12:25:28)
[2019-12-11] MEDS ORDERED: PHARMACY CONSULT LTC MEDICATIONS XX SCH (17:00)
[2019-12-11 17:06] LABS: CKMB % 2.8 % (<4); CREATINE KINASE 47 Units/L (26-192); CREATINE KINASE MB 1.3 ng/mL (0-4.0); TROPONIN I < 0.02 ng/mL (0-1.5)
[2019-12-11] MEDS ORDERED: HumuLIN R SC PRN (17:48)
[2019-12-11 18:06] LABS: BILIRUBIN,URINE NEGATIVE (NEGATIVE); BLOOD/HEMOGLOBIN,URINE 1+ (NEGATIVE); GLUCOSE, URINE NEGATIVE (NEGATIVE); KETONES,URINE NEGATIVE (NEGATIVE); LEUKOCYTE ESTERASE ,URINE 3+ (NEGATIVE); NITRITES,URINE NEGATIVE (NEGATIVE); PROTEIN,URINE 3+ (NEGATIVE); UROBILINOGEN,URINE NORMAL (NORMAL)
[2019-12-11 18:08] LABS: APPEARANCE,URINE HAZY (CLEAR); COLOR,URINE YELLOW (YELLOW)
[2019-12-11 18:18] LABS: BACTERIA,URINE 1+ /HPF (NEGATIVE); SQUAMOUS EPITHELIAL CELL,UR RARE /HPF (NEGATIVE); YEAST,URINE MODERATE /HPF (NEGATIVE)
[2019-12-11] MEDS ORDERED: NS 250 ML IV 250 ML IV ONE (19:56)
[2019-12-11] MEDS: ROCEPHIN VIAL 1 GRAM 1 G in NS 100 ML IV + SPIKE MINIBAG* 100 ML IV SCH (20:09)
[2019-12-11] MEDS: SNACK - Diabetic Appropriate PO SCH (20:10)
[2019-12-11 22:37] LABS: CREATINE KINASE MB 1.5 ng/mL (0-4.0); TROPONIN I 0.03 ng/mL (0-1.5)
[2019-12-12 05:53] LABS: BASOPHILS # (AUTO) 0.1 X10^3/uL (0.0-0.1); BASOPHILS % (AUTO) 1.3 % (0.2-1.0); EOSINOPHILS # (AUTO) 0.3 x10^3/uL (0.0-0.2); EOSINOPHILS % (AUTO) 5.8 % (0.9-2.9); HEMATOCRIT 33.2 % (36.0-47.0); HEMOGLOBIN 11.7 g/dL (12.0-16.0); LYMPHOCYTES # (AUTO) 1.5 X10^3/uL (1.3-2.9); LYMPHOCYTES % (AUTO) 29.5 % (21.0-51.0); MEAN CORPUSCULAR HEMOGLOBIN 31.9 pg (27.0-34.0); MEAN CORPUSCULAR HGB CONC 35.3 g/dL (33.0-35.0); MEAN CORPUSCULAR VOLUME 90.2 fL (80.0-100.0); MONOCYTES # (AUTO) 0.8 x10^3/uL (0.3-0.8); MONOCYTES % (AUTO) 15.4 % (0.0-13.0); NEUTROPHILS # (AUTO) 2.5 x10^3/uL (2.2-4.8); PLATELET COUNT 233 X10^3/uL (150.0-450.0); RED BLOOD COUNT 3.68 X10^6/uL (3.5-5.4); RED CELL DISTRIBUTION WIDTH 13.8 % (11.6-16.5); WHITE BLOOD COUNT 5.3 X10^3/uL (3.6-10.0)
[2019-12-12 06:24] LABS: ALANINE AMINOTRANSFERASE 17 Units/L (12-78); ALBUMIN 2.9 g/dL (3.4-5.0); ALKALINE PHOSPHATASE 46 Units/L (46-116); ASPARTATE AMINO TRANSFERASE 19 Units/L (15-37); BLOOD UREA NITROGEN 14 mg/dL (7-18); CALCIUM 8.5 mg/dL (8.5-10.1); CARBON DIOXIDE 26.3 mmol/L (21-32); CHLORIDE 101 mmol/L (98-107); COR CA(FOR HYPOALB) 9.4 mg/dL (8.5-10.1); CREATININE 0.76 mg/dL (0.55-1.02); MAGNESIUM 1.9 mg/dL (1.7-2.9); SODIUM 134 mmol/L (136-145); eGFR NON BLACK RACES > 60 (>60)
[2019-12-12] MEDS: ROCEPHIN VIAL 1 GRAM 1 G in NS 100 ML IV + SPIKE MINIBAG* 100 ML IV SCH (09:01)
--- NOTE | 2019-12-12 10:41 | DR.H&P ---
H&P - History & Physical for Day of: H&P Date: 12/11/19 - Chief Complaint Chief Complaint: SOB, WEAKNESS, PAIN, HTN - History of Present Illness History of Present Illness: IS A 84 YEAR OLD PATIENT OF OURS. SHE IS A RESIDENT OF [facility]. SHE PRESENTED TO THE ER WITH COMPALINTS OF SHORTNESS OF BREATH, CHRONIC HIP PAIN, AND ELEVATED BLOOD PRESSURE. SNF STAFF REPORTED THAT PATIENT HAD AN ELEVATED BNP ON OUTPATIENT LABS. ON ARRIVAL TO THE ER, VITALS WERE 98.3-100-20-98%-209/91. LABS WERE OBTAINED. ABNORMAL LAB VALUES INCLUDED THE FOLLOWING: SODIUM 134, GLUCOSE 180, BNP 503, ALBUMIN 3.2. CARDIAC ENZYMES WERE WITHIN NORMAL LIMITS. A URINALYSIS WAS OBTAINED AND REVEALED: WBC 30-50, RBC 3-5, LEUKOCYTES 3+, BACTERIA 1+, YEAST MODERATE. AN ABG WAS OBTAINED AND REVEALED: PH 7.500, PC02 37.0, PC02 89.0, HC03 28.9, 02 SATURATION 98.0, BASE EXCESS 5.5. A URINE CULTURE WAS SET UP. AN EKG WAS OBTAINED AND REVEALED: SINUS TACHYCARDIA WITH HR 97. AN ABDOMEN/PELVIS CT WITHOUT CONTRAST WAS OBTAINED AND REVEALED: Small nonobstructing left renal calculi similar to prior exam. Cholecystectomy. Diverticulosis. A BRAIN CT WAS OBTAINED AND WAS STABLE. A CHEST XRAY WAS OBTAINED AND REVEALED: Cardiomegaly with mild prominence of the central pulmonary vasculature. SHE WAS GIVEN CATAPRES 0.1MG PO X 1 DOSE. BLOOD PRESSURE DECREASED TO 140/78. SHE WAS ADMITTED FOR CHF, UTI, HYPERTENSION, AND GENERALIZED WEAKNESS. SHE WAS STARTED ON ROCEPHIN 1G IV DAILY, LASIX 20 MG IV DAILY, DIFLUCAN IV, HUMULIN R SLIDING SCALE, AND WE WILL REVIEW HER HOME MEDICATIONS. OTHERWISE, WE WILL FOLLOW UP WITH AM LABS AND CHEST XRAY AND CONTINUE TO MONITOR. 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 Additional Surgical History: Sinus surgery - Family History Family Medical History: Diabetes Mellitus, [place], Coronary Artery Disease, Sudden Cardiac - Social History Does patient currently use any type of tobacco product: No Have you used tobacco products in the last 12 months: No Type of Tobacco Use: None Does any household member use tobacco: No Alcohol Use: None Drug Use: None - Medications Home Medications: tuberculin,PPD,multi-puncture Allergy (Verified 08/17/18 17:34) CONTINUE taking the following medications apixaban [Eliquis] 2.5 mg PO BID 12/11/19 [History] atorvastatin [Lipitor] 20 mg PO DAILY 12/11/19 [History] cholestyramine (with sugar) [Questran] 4 g PO DAILY 12/11/19 [History] ferrous fumarate [Ferrocite] 324 mg PO DAILY 12/11/19 [History] hydroxyzine pamoate [Vistaril] 25 mg PO Q6H PRN 12/11/19 [History] tramadol [Ultram] 50 mg PO Q6HR PRN 12/11/19 [History] carboxymethylcellulose sodium [Artificial Tears (cmc)] 1 drp OPHTHALMIC (EYE) TID 12/12/19 [History] insulin regular human [Novolin R Regular U-100 Insuln] See Rx Instructions .ROUTE .COMPLEX 12/12/19 [History] - Physical Exam Vital Signs: Temperature 98.7 F Pulse Rate [Right Brachial] 64 Pulse Rate [Left Brachial] 77 Pulse Rate 91 Respiratory Rate 20 Blood Pressure [Right Arm] 123/58 Blood Pressure [Left Arm] 112/70 Blood Pressure 132/84 O2 Sat by Pulse Oximetry 97 - Allergies Allergies/Adverse Reactions: Allergies Allergy/AdvReac Type Severity Reaction Status Date / Time tuberculin,PPD,multi-puncture Allergy Verified 08/17/18 17:34
[2019-12-12] MEDS: DIFLUCAN 200 MG IV PREMIX* 200 MG/100 ML BAG IV SCH (11:45)
[2019-12-12] MEDS: LASIX IVP SCH (11:45)
[2019-12-12] MEDS: SNACK - Diabetic Appropriate PO SCH (19:45)
[2019-12-13 06:29] LABS: BASOPHILS # (AUTO) 0.1 X10^3/uL (0.0-0.1); BASOPHILS % (AUTO) 1.3 % (0.2-1.0); EOSINOPHILS # (AUTO) 0.3 x10^3/uL (0.0-0.2); EOSINOPHILS % (AUTO) 6.1 % (0.9-2.9); HEMATOCRIT 36.5 % (36.0-47.0); HEMOGLOBIN 12.5 g/dL (12.0-16.0); LYMPHOCYTES # (AUTO) 1.4 X10^3/uL (1.3-2.9); LYMPHOCYTES % (AUTO) 29.4 % (21.0-51.0); MEAN CORPUSCULAR HEMOGLOBIN 31.3 pg (27.0-34.0); MEAN CORPUSCULAR HGB CONC 34.3 g/dL (33.0-35.0); MEAN CORPUSCULAR VOLUME 91.4 fL (80.0-100.0); MEAN PLATELET VOLUME 7.2 fL (7.4-11.0); MONOCYTES # (AUTO) 0.8 x10^3/uL (0.3-0.8); MONOCYTES % (AUTO) 16.3 % (0.0-13.0); NEUTROPHILS # (AUTO) 2.3 x10^3/uL (2.2-4.8); NEUTROPHILS % (AUTO) 46.9 % (42.0-75.0); PLATELET COUNT 218 X10^3/uL (150.0-450.0); RED BLOOD COUNT 3.99 X10^6/uL (3.5-5.4); RED CELL DISTRIBUTION WIDTH 13.8 % (11.6-16.5); WHITE BLOOD COUNT 4.8 X10^3/uL (3.6-10.0)
[2019-12-13 06:43] LABS: ALANINE AMINOTRANSFERASE 21 Units/L (12-78); ALKALINE PHOSPHATASE 52 Units/L (46-116); ASPARTATE AMINO TRANSFERASE 24 Units/L (15-37); BLOOD UREA NITROGEN 18 mg/dL (7-18); CALCIUM 8.5 mg/dL (8.5-10.1); CARBON DIOXIDE 27.2 mmol/L (21-32); CHLORIDE 99 mmol/L (98-107); COR CA(FOR HYPOALB) 9.3 mg/dL (8.5-10.1); COR NA(FOR HYPERGLY) 133 mmol/L (136-145); CREATININE 0.79 mg/dL (0.55-1.02); SODIUM 132 mmol/L (136-145); TOTAL PROTEIN 6.3 g/dL (6.4-8.2); eGFR NON BLACK RACES > 60 (>60)
[2019-12-13 08:15] VITALS: BP 116/62
--- NOTE | 2019-12-13 08:42 | RAD ---
HISTORYShortness of breathSTUDYCHEST, 1 VIEW, done [id number]/09/2020.FINDINGSThe trachea is midline. The cardiac silhouette is enlarged with very mild pulmonary vascular congestion. No CHF, infiltrate or pleural fluid is seen. There is chronic elevation of the right hemidiaphragm.. . The bony thorax is unremarkable.IMPRESSIONCardiomegaly with mild pulmonary vascular congestion. No infiltrate, CHF or pleural fluid is seen.Electronically signed by: BECKIE PRESTON (Dec 13, 2019 08:41:37)
[2019-12-13] MEDS: ROCEPHIN VIAL 1 GRAM 1 G in NS 100 ML IV + SPIKE MINIBAG* 100 ML IV SCH (08:50)
[2019-12-13] MEDS: DIFLUCAN 200 MG IV PREMIX* 200 MG/100 ML BAG IV SCH (08:50)
[2019-12-13] MEDS: LASIX IVP SCH (08:51)
== END 2019-12-13 14:25 ==
LOC: MED/SURG 08:23 → ER 08:23 → MED/SURG 14:33
PROVIDERS: ADMIT Internal Medicine; ATTEND Internal Medicine
DX: N39.0 Urinary tract infection, site not specified; I11.0 Hypertensive heart disease with heart failure; Z79.899 Other long term (current) drug therapy; R53.1 Weakness; R06.02 Shortness of breath; R94.31 Abnormal electrocardiogram [ECG] [EKG]; I50.9 Heart failure, unspecified; E11.65 Type 2 diabetes mellitus with hyperglycemia; K52.89 Other specified noninfective gastroenteritis and colitis; I25.10 Atherosclerotic heart disease of native coronary artery without angina pectoris
CPT/HCPCS: 36415; 36600; 51701; 70450; 71010; 71045; 74176; 80053; 81001; 82009; 82150; 82550; 82553; 82803; 83690; 83735; 83880; 84484; 85025; 87086; 93005; 94760; 96365; 96372; 96374; 97110; 97162; 97166; 97535; 99284; A4216; A4222; G0378; J0696; J1450; J1815; J1940; J7050

== ENCOUNTER 2020-02-29 08:05 | Inpatient (IN) ==
[2020-02-29] MEDS ORDERED: NS 1000 ML 1,000 ML ONE ×2 (08:30→16:20)
[2020-02-29] MEDS ORDERED: ATROPINE SULFATE ABBOJECT IVP ONE ×3 (08:33→09:58)
[2020-02-29 08:53] VITALS: BMI 23.8
[2020-02-29] MEDS ORDERED: NS 1000 ML 1,000 ML IV ONE (08:54)
[2020-02-29 09:02] LABS: BASOPHILS % (AUTO) 0.3 % (0.2-1.0); EOSINOPHILS # (AUTO) 0.1 x10^3/uL (0.0-0.2); EOSINOPHILS % (AUTO) 0.8 % (0.9-2.9); HEMATOCRIT 38.5 % (36.0-47.0); HEMOGLOBIN 13.1 g/dL (12.0-16.0); LYMPHOCYTES % (AUTO) 8.8 % (21.0-51.0); MEAN CORPUSCULAR HEMOGLOBIN 31.7 pg (27.0-34.0); MEAN CORPUSCULAR VOLUME 93.2 fL (80.0-100.0); MEAN PLATELET VOLUME 8.3 fL (7.4-11.0); MONOCYTES % (AUTO) 8.9 % (0.0-13.0); NEUTROPHILS # (AUTO) 9.3 x10^3/uL (2.2-4.8); NEUTROPHILS % (AUTO) 81.2 % (42.0-75.0); PLATELET COUNT 305 X10^3/uL (150.0-450.0); RED BLOOD COUNT 4.13 X10^6/uL (3.5-5.4); RED CELL DISTRIBUTION WIDTH 15.2 % (11.6-16.5); WHITE BLOOD COUNT 11.4 X10^3/uL (3.6-10.0)
--- NOTE | 2020-02-29 09:10 | DR.GENAD ---
HPI Time Seen Time Seen by Provider: 02/29/20 08:29 HPI Comment HPI Comment: Per nursing note: The patient fell in her detention yesterday, c/o rib pain, CXR neg, had tyrell 30s last night, verapamil held this AM, sent to ER due to bradycardia and diaphoresis, and reduced level of alertness. The patient does not exhibit signs of pain distress, no diaphoresis noted. Upon arrival, patient states name only and is obtunded. HR 20 irreg, BP not measurable, pulses palpable. DNR order reviewed and acknowledge, no family initially at bedside, nurse requested to reach them. 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 Family History Family Medical History: Diabetes Mellitus, [place], Coronary Artery Disease and Sudden Cardiac Social History Do you use any recreational Drugs:: No Travel Risk Coronavirus risk:travel/contact w/high risk person: No Has patient experienced Coronavirus symptoms: No ROS Review of Systems Constitutional: Other (Cannot be obtained, patient obtunded) Eyes: No Symptoms Reported ENTM: No Symptoms Reported Respiratoy: No Symptoms Reported Cardiovascular: No Symptoms Reported Gastrointestinal/Abdominal: No Symptoms Reported Genitourinary: No Symptoms Reported Neurological: No Symptoms Reported Musculoskeletal: No Symptoms Reported Integumentary: No Symptoms Reported Hematologic/Lymphatic: No Symptoms Reported Endocrine: No Symptoms Reported Psychiatric: No Symptoms Reported All Other Systems: Reviewed and Negative PE Vital Signs Vitals: Temperature 97.4 F Pulse Rate 44 Respiratory Rate 20 Blood Pressure [Right Arm] 134/60 Blood Pressure 149/72 O2 Sat by Pulse Oximetry 100 General Limitations: No Limitations General Appearance: In No Apparent Distress and Obtunded Head Head Exam: Normal Inspection Eyes Eye exam: Normal Appearance ENT ENT Exam: Mucous Membranes Dry External Ear Exam: Normal External Inspection TM/Canal Exam: Bilateral: Normal Nose Exam: Normal Nose Exam Mouth Exam: Normal Inspection Throat Exam: Normal Inspection Neck Neck Exam: Normal Inspection Chest Chest Inspection: Normal Inspection Respiratory Respiratory Exam: Normal Lung Sounds Bilat Respiratory Exam: Bilateral: Clear to Auscultation Cardiovascular Cardiovascular Exam: Bradycardia and Irregular Rhythm Abdominal Exam Abdominal Exam: Normal Inspection, Normal Bowel Sounds and Soft Extremities Extremities Exam: Normal Inspection Back Back Exam: Normal Inspection Neurologic Neurological Exam: Other (Able to state name, GCS 13(E3,V4,M6) ) Psychiatric Psychiatric Exam: Other (Unable to assess) Skin Skin Exam: Dry and Pallor COURSE Treatment Treatment: Upon arrival, the patient was immediately placed on bus monitor, and PIV line was inserted. Atropine 0.5mg was given IVP, followed by NSS 500cc IV fast drip. 2L/min 02 via NC was given. Within 5 minutes, the patient was awake and alert, and able to provide ROS. ROS: No ARMENTA, c/o DIZZINESS, denies LOC or BOV No facial pain or sore throat No neck pain No chest pain pressure or palpitations, no SHOB, no cough No abdominal pain, no constipation, no n/v/d No dysuria No extremity pain Patient is now alert and oriented to self only, GCS 14. Labs show KRISTIAN with hyperkalemia, improving hyponatremia, and low CO2 concerning for metabolic acidosis. I discussed her case with Dr. Phillips and he agreed to ICU admission. We discussed the management of her bradycardia with possible verapamil effects, and agreed on no pacing and PRN atropine with q1hr monitoring. Will continue replacing sodium gently. Calcium gluconate given, will order Kayexalate rectal until passes swallow test. Mild leukocytosis likely due to hemoconcentration, but will check UA, CXR, and Lactate to r/o concomitant infection. Discussed the plan with daughter at bedside, and she is agreeable. She reiterates her desire for DNR/DNI but would like her mother to receive medical management. She understood and verbalized back her understanding of her mother's critical condition. Reevaluation 1st: Improved ROR Labs Reviewed Laboratory Results Reviewed?: Yes Result Diagrams: 02/29/20 08:35 02/29/20 09:35 Laboratory: WBC 11.4 X10^3/uL (3.6-10.0) H 02/29/20 08:35 RBC 4.13 X10^6/uL (3.5-5.4) 02/29/20 08:35 Hgb 13.1 g/dL (12.0-16.0) 02/29/20 08:35 Hct 38.5 % (36.0-47.0) 02/29/20 08:35 MCV 93.2 fL (80.0-100.0) 02/29/20 08:35 MCH 31.7 pg (27.0-34.0) 02/29/20 08:35 MCHC 34.0 g/dL (33.0-35.0) 02/29/20 08:35 RDW 15.2 % (11.6-16.5) 02/29/20 08:35 Plt Count 305 X10^3/uL (150.0-450.0) 02/29/20 08:35 MPV 8.3 fL (7.4-11.0) 02/29/20 08:35 Neut % (Auto) 81.2 % (42.0-75.0) H 02/29/20 08:35 Lymph % (Auto) 8.8 % (21.0-51.0) L 02/29/20 08:35 [place] % (Auto) 8.9 % (0.0-13.0) 02/29/20 08:35 Eos % (Auto) 0.8 % (0.9-2.9) L 02/29/20 08:35 Baso % (Auto) 0.3 % (0.2-1.0) 02/29/20 08:35 Neut # (Auto) 9.3 x10^3/uL (2.2-4.8) H 02/29/20 08:35 Lymph # (Auto) 1.0 X10^3/uL (1.3-2.9) L 02/29/20 08:35 [place] # (Auto) 1.0 x10^3/uL (0.3-0.8) H 02/29/20 08:35 Eos # (Auto) 0.1 x10^3/uL (0.0-0.2) 02/29/20 08:35 Baso # (Auto) 0.0 X10^3/uL (0.0-0.1) 02/29/20 08:35 Absolute Nucleated RBC 0.0 /100WBC 02/29/20 08:35 Sodium 111 mmol/L (136-145) L* 02/29/20 09:35 Corrected Sodium 112 mmol/L (136-145) L 02/29/20 09:35 Potassium 7.2 mmol/L (3.5-5.1) H* 02/29/20 09:35 Chloride 82 mmol/L (98-107) L 02/29/20 09:35 Carbon Dioxide 15.9 mmol/L (21-32) L 02/29/20 09:35 BUN 41 mg/dL (7-18) H 02/29/20 09:35 Creatinine 3.16 mg/dL (0.55-1.02) H 02/29/20 09:35 Est GFR (MDRD) Af Amer 18 (>60) L 02/29/20 09:35 Est GFR (MDRD) Non-Af 15 (>60) L 02/29/20 09:35 Glucose 161 mg/dL (65-99) H 02/29/20 09:35 POC Glucose (mg/dL) 211 mg/dL (65-99) H 02/29/20 08:37 Calcium 8.5 mg/dL (8.5-10.1) 02/29/20 09:35 Corrected Calcium TNP 02/29/20 09:35 Total Bilirubin 0.50 mg/dL (0.2-1.0) 02/29/20 09:35 AST 53 Units/L (15-37) H 02/29/20 09:35 ALT 49 Units/L (12-78) 02/29/20 09:35 Alkaline Phosphatase 142 Units/L (46-116) H 02/29/20 09:35 Creatine Kinase 82 Units/L (26-192) 02/29/20 08:35 CK-MB (CK-2) 2.5 ng/mL (0-4.0) 02/29/20 08:35 CK/CKMB % Calc 3.1 % (<4) 02/29/20 08:35 Troponin I 0.03 ng/mL (0-1.5) 02/29/20 08:35 Total Protein 6.8 g/dL (6.4-8.2) 02/29/20 09:35 Albumin 3.5 g/dL (3.4-5.0) 02/29/20 09:35 Globulin 3.3 g/dL (2.5-4.5) 02/29/20 09:35 Albumin/Globulin Ratio 1.1 Ratio (1.1-2.1) 02/29/20 09:35 Specimen Type Catherized urine 02/29/20 10:30 Urine Color Yellow (YELLOW) 02/29/20 10:30 Urine Appearance Hazy (CLEAR) 02/29/20 10:30 Urine pH 5.0 (5.0 - 8.0) 02/29/20 10:30 Ur Specific [place] 1.020 (1.000-1.030) 02/29/20 10:30 Urine Protein 2+ (NEGATIVE) 02/29/20 10:30 Urine Glucose (UA) Negative (NEGATIVE) 02/29/20 10:30 Urine Ketones Negative (NEGATIVE) 02/29/20 10:30 Urine Occult Blood Negative (NEGATIVE) 02/29/20 10:30 Urine Nitrite Negative (NEGATIVE) 02/29/20 10:30 Urine Bilirubin Negative (NEGATIVE) 02/29/20 10:30 Urine Urobilinogen Normal (NORMAL) 02/29/20 10:30 Ur Leukocyte Esterase 3+ (NEGATIVE) 02/29/20 10:30 Urine RBC 0-2 /HPF (0-3) 02/29/20 10:30 Urine WBC 20-30 /HPF (0-5) A 02/29/20 10:30 Ur Squamous Epith Cells Rare /HPF (NEGATIVE) 02/29/20 10:30 Urine Bacteria Trace /HPF (NEGATIVE) 02/29/20 10:30 Urine Yeast Moderate /HPF (NEGATIVE) 02/29/20 10:30 Ur Culture Indicated? Yes/culture set up 02/29/20 10:30 Other Results Comments: Repeat CMP with Na+ increased to 111 (patient on NSS drip), CO2 15.9. EKG Rate: 68 [place]: LAD Rhythm: Afib Block: None Hypertrophy: LVH ST: Normal Opioid Opioid Risk Tool Age (Marcos box if 16-45): No History of Preadolescent Sexual Abuse: No Total: 0 Total Score Risk Category: Low Risk Copyright: Tadeo CHAHAL predicting aberrant behaviors Diagnosis Discharge Problem: Bradycardia with less than 30 beats per minute, Acute hyponatremia, Acute kidney injury, Acute hyperkalemia, Cardiogenic shock, Acute dehydration, Adverse effects of medication
[2020-02-29 09:20] LABS: ALANINE AMINOTRANSFERASE 48 Units/L (12-78); ALBUMIN 3.4 g/dL (3.4-5.0); ALKALINE PHOSPHATASE 141 Units/L (46-116); ASPARTATE AMINO TRANSFERASE 53 Units/L (15-37); BLOOD UREA NITROGEN 41 mg/dL (7-18); CALCIUM 8.9 mg/dL (8.5-10.1); CKMB % 3.1 % (<4); COR NA(FOR HYPERGLY) 111 mmol/L (136-145); CREATINE KINASE 82 Units/L (26-192); CREATINE KINASE MB 2.5 ng/mL (0-4.0); CREATININE 3.32 mg/dL (0.55-1.02); TOTAL PROTEIN 6.6 g/dL (6.4-8.2); TROPONIN I 0.03 ng/mL (0-1.5); eGFR NON BLACK RACES 14 (>60)
[2020-02-29 09:24] LABS: SODIUM 109 mmol/L (136-145)
[2020-02-29 09:25] LABS: CHLORIDE 80 mmol/L (98-107)
[2020-02-29 09:50] LABS: BLOOD UREA NITROGEN 41 mg/dL (7-18); CALCIUM 8.5 mg/dL (8.5-10.1); CARBON DIOXIDE 15.9 mmol/L (21-32); CHLORIDE 82 mmol/L (98-107); COR NA(FOR HYPERGLY) 112 mmol/L (136-145); CREATININE 3.16 mg/dL (0.55-1.02); eGFR NON BLACK RACES 15 (>60)
[2020-02-29 09:54] LABS: ALANINE AMINOTRANSFERASE 49 Units/L (12-78); ALBUMIN 3.5 g/dL (3.4-5.0); ALKALINE PHOSPHATASE 142 Units/L (46-116); ASPARTATE AMINO TRANSFERASE 53 Units/L (15-37); TOTAL PROTEIN 6.8 g/dL (6.4-8.2)
[2020-02-29 09:55] LABS: SODIUM 111 mmol/L (136-145)
[2020-02-29] MEDS ORDERED: CALCIUM GLUCONATE 10% IV ONE ×2 (09:56→10:05)
[2020-02-29] MEDS ORDERED: BACITRACIN ZINC ONE (10:30)
[2020-02-29 10:44] LABS: BILIRUBIN,URINE NEGATIVE (NEGATIVE); BLOOD/HEMOGLOBIN,URINE NEGATIVE (NEGATIVE); GLUCOSE, URINE NEGATIVE (NEGATIVE); KETONES,URINE NEGATIVE (NEGATIVE); LEUKOCYTE ESTERASE ,URINE 3+ (NEGATIVE); NITRITES,URINE NEGATIVE (NEGATIVE); PROTEIN,URINE 2+ (NEGATIVE); UROBILINOGEN,URINE NORMAL (NORMAL)
[2020-02-29 10:47] LABS: APPEARANCE,URINE HAZY (CLEAR); COLOR,URINE YELLOW (YELLOW)
[2020-02-29 10:56] LABS: BACTERIA,URINE TRACE /HPF (NEGATIVE); RBC,URINE 0-2 /HPF (0-3); SQUAMOUS EPITHELIAL CELL,UR RARE /HPF (NEGATIVE)
[2020-02-29 10:57] LABS: YEAST,URINE MODERATE /HPF (NEGATIVE)
--- NOTE | 2020-02-29 11:43 | RAD ---
HISTORYleukocytosisSTUDYPortable AP chestCOMPARISONYesterday, February 27FINDINGSThe heart size is prominent. The lungs are grossly clear. There is no edema or effusion. No significant bony abnormality is demonstrated.IMPRESSIONNo evidence for acute cardiopulmonary diseaseElectronically signed by: TEOFILO MORRIS (February 29, 2020 11:42:33)
[2020-02-29] MEDS ORDERED: MIRALAX POWDER (1 DOSE 17 G) PO PRN (12:59)
[2020-02-29] MEDS ORDERED: ATROPINE SULFATE ABBOJECT IVP PRN (12:59)
[2020-02-29 13:28] LABS: FREE T4 (FREE THYROXINE) 1.95 ng/dL (0.76-1.46); TSH (3RD GENERATION) 5.664 uIU/mL (0.358-3.74)
[2020-02-29] MEDS: KAYEXALATE SUSP PO SCH ×2 (13:53→20:00)
[2020-02-29] MEDS: PROTONIX TAB 40 MG PO SCH (13:54)
[2020-02-29] MEDS: ARTIFICIAL TEARS DROPS OP SCH ×2 (16:23→21:27)
[2020-02-29] MEDS: NS 1000 ML 1,000 ML IV SCH (16:27)
[2020-02-29] MEDS: SYNTHROID 75 mcg TAB PO SCH (16:50)
[2020-02-29] MEDS ORDERED: PHARMACY CONSULT LTC MEDICATIONS XX SCH (17:00)
[2020-02-29 17:51] LABS: CKMB % 2.8 % (<4); CREATINE KINASE MB 2.2 ng/mL (0-4.0); TROPONIN I 0.05 ng/mL (0-1.5)
[2020-02-29] MEDS: SNACK - Diabetic Appropriate PO SCH (20:00)
[2020-02-29] MEDS ORDERED: NUT TX GLUC INTOL LAC FREE SOY PO SCH (21:00)
[2020-02-29] MEDS ORDERED: TRAVATAN Z EACHEYE SCH (21:00)
[2020-02-29] MEDS: COLACE CAP 100 MG PO SCH (21:24)
[2020-02-29] MEDS: MYLICON TAB 80 MG CHEW PO SCH (21:24)
[2020-02-29] MEDS: ELIQUIS PO SCH (21:25)
[2020-02-29] MEDS: LEVEMIR SC SCH (21:25)
[2020-02-29] MEDS: LIPITOR TAB 20 MG PO SCH (21:49)
[2020-02-29 23:59] LABS: CKMB % 2.6 % (<4); CREATINE KINASE MB 2.2 ng/mL (0-4.0); TROPONIN I 0.05 ng/mL (0-1.5)
[2020-03-01] MEDS: KAYEXALATE SUSP PO SCH ×4 (00:29→18:11)
[2020-03-01] MEDS: NS 1000 ML 1,000 ML IV SCH ×3 (02:00→16:29)
[2020-03-01 06:22] LABS: BASOPHILS % (AUTO) 0.3 % (0.2-1.0); EOSINOPHILS % (AUTO) 0.7 % (0.9-2.9); HEMATOCRIT 31.5 % (36.0-47.0); HEMOGLOBIN 11.2 g/dL (12.0-16.0); LYMPHOCYTES # (AUTO) 0.6 X10^3/uL (1.3-2.9); LYMPHOCYTES % (AUTO) 9.8 % (21.0-51.0); MEAN CORPUSCULAR HEMOGLOBIN 32.2 pg (27.0-34.0); MEAN CORPUSCULAR HGB CONC 35.4 g/dL (33.0-35.0); MEAN CORPUSCULAR VOLUME 90.8 fL (80.0-100.0); MEAN PLATELET VOLUME 7.5 fL (7.4-11.0); MONOCYTES # (AUTO) 0.8 x10^3/uL (0.3-0.8); MONOCYTES % (AUTO) 12.5 % (0.0-13.0); NEUTROPHILS # (AUTO) 4.6 x10^3/uL (2.2-4.8); NEUTROPHILS % (AUTO) 76.7 % (42.0-75.0); PLATELET COUNT 229 X10^3/uL (150.0-450.0); RED BLOOD COUNT 3.47 X10^6/uL (3.5-5.4); RED CELL DISTRIBUTION WIDTH 14.9 % (11.6-16.5); WHITE BLOOD COUNT 6.1 X10^3/uL (3.6-10.0)
[2020-03-01 06:34] LABS: ALANINE AMINOTRANSFERASE 37 Units/L (12-78); ALBUMIN 3.2 g/dL (3.4-5.0); ALKALINE PHOSPHATASE 114 Units/L (46-116); ASPARTATE AMINO TRANSFERASE 36 Units/L (15-37); BLOOD UREA NITROGEN 38 mg/dL (7-18); CALCIUM 8.2 mg/dL (8.5-10.1); CARBON DIOXIDE 21.6 mmol/L (21-32); CHLORIDE 92 mmol/L (98-107); COR CA(FOR HYPOALB) 8.8 mg/dL (8.5-10.1); CREATININE 1.75 mg/dL (0.55-1.02); TOTAL PROTEIN 6.1 g/dL (6.4-8.2); eGFR NON BLACK RACES 30 (>60)
[2020-03-01 06:36] LABS: SODIUM 124 mmol/L (136-145)
[2020-03-01] MEDS: ARTIFICIAL TEARS DROPS OP SCH ×3 (06:38→21:14)
[2020-03-01] MEDS: LIPITOR TAB 20 MG PO SCH (08:50)
[2020-03-01] MEDS: JANUVIA PO SCH (08:50)
[2020-03-01] MEDS: ELIQUIS PO SCH ×2 (08:50→20:46)
[2020-03-01] MEDS: PROTONIX TAB 40 MG PO SCH (08:50)
[2020-03-01] MEDS: TAB-A-VITE PO SCH (08:50)
[2020-03-01] MEDS: COLACE CAP 100 MG PO SCH ×2 (08:51→20:46)
[2020-03-01] MEDS: MYLICON TAB 80 MG CHEW PO SCH ×2 (08:51→20:47)
[2020-03-01] MEDS: FERROUS GLUCONATE PO SCH (08:51)
[2020-03-01] MEDS: QUESTRAN POWDER FOR ORAL SUSP PO SCH (08:53)
--- NOTE | 2020-03-01 09:10 | DR.H&P ---
H&P - History & Physical for Day of: H&P Date: 02/29/20 - Chief Complaint Chief Complaint: BRADYCARDIA, FALLS, DIAPHORESIS, DECREASED ALERTNESS - History of Present Illness History of Present Illness: IS A 84 YEAR OLD PATIENT OF OURS. SHE IS A RESIDENT OF [facility] / [facility]. SHE PRESENTED TO THE ER WITH REPORTS OF FALLING AT THE RETIREMENT ONE DAY PRIOR. SHE REPORTS RIB PAIN. STAFF REPORTS THAT SHE HAS HAD DECREASED ALERTNESS AND DIAPHORESIS. THEY REPORT THAT WHEN VITAL SIGNS WERE OBTAINED, SHE WAS NOTED TO BE DIAPHORETIC, WITH HR IN THE 30s. UPON ARRIVAL TO THE ER, PATIENT WAS NOTED TO BE OBTUNDED. HR WAS IN THE 20s AND IRREGULAR AND BLOOD PRESSURE WAS NOT MEASURABLE. HER PMH INCLUDES: Anemia, Arthritis, Asthma, CHF, Coronary Artery Disease, CVA, Depression, Diabetes, Dyslipidemia, GERD, Hypertension and Hypothyroidism. ON ARRIVAL TO THE ER, VITALS WERE [id number]%NC-AND BLOOD PRESSURE WAS UNOBTAINABLE. SHE WAS PLACED ON THE REHABILITATION CASE COORDINATOR. AN IV WAS STARTED AND SHE WS GIVEN ATROPINE 0.5MG IVP FOLLOWED BY A 500ML BOLUS OF NORMAL SALINE. WITHIN 5 MINUTES OF ATROPINE, PATIENT WAS AWAKE AND ALERT. SHE COMPLAINED OF DIZZINESS AND WEAKNESS, BUT DENIED OTHER SYMPTOMS. LABS WERE OBTAINED. ABNORMAL LAB VALUES INCLUDED THE FOLLOWING: WBC 11.4, SODIUM 109, POTASSIUM 7.2, CHLORIDE 80, CARBON DIOXICE 13.0, BUN 41, CREATININE 3.32, AST 53, ALK PHOS 141, FREE T4 1.95, TSH 5.664, BNP 288, LACTATE DEHYDROGENASE 259. A URINALYSIS WAS OBTAINED AND REVEALED: WBC 20-30, RBC 0-2, LEUKOCYTES 3+, BACTERIA TRACE, YEAST MODERATE. A URINE CULTURE WAS SET UP. AN EKG WAS OBTAINED AFTER ATROPINE WAS GIVEN AND REVEALED: ECTOPIC ATRIAL RHYTHM, VENTRICULAR BIGEMINY, HR 73. A CHEST XRAY WAS OBTAINED AND REVEALED: NO EVIDENCE FOR ACUTE CARDIOPULMONARY DISEASE. SHE WAS GIVEN CALCIUM GLUCONATE 10% IV X 1 AND AN ADDITONAL DOSE OF ATROPINE 0.5MG X 1 IN THE ER. SHE WAS ADMITTED FOR FURTHER EVALUATION AND TREATMENT OF BRADYCARDIA, HYPOTREMIA, HYPERKALEMIA, ACUTE RENAL FAILURE, DEHYDRATION, AND A URINARY TRACT INFECTION. SHE WAS STARTED ON NORMAL SALINE AT 100ML/HR, ROCEPHIN 1G IV DAILY, DIFLUCAN 200MG IV DAILY, HUMULIN R SLIDING SCALE, ATROPINE 0.5MG IV PRN, KAYEXALATE 15G PO Q6H PRN, AND HOME MEDICATIONS WERE RESUMED. PATIENT IS A LIMITED DNR. FAMILY REQUEST MEDICATION AND FLUID ADMINISTRATION, BUT NOT INTUBATION OR CPR. WE WILL OBTAIN SERIAL CARDIAC ENZYMES AND EKGS. OTHERWISE, WE WILL FOLLOW UP WITH AM LABS AND CONTINUE TO [facility]. 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 Additional Surgical History: Sinus surgery - Family History Family Medical History: Diabetes Mellitus, Coronary Artery Disease, Sudden Cardiac , Hypertension - Social History Does patient currently use any type of tobacco product: No Have you used tobacco products in the last 12 months: No Type of Tobacco Use: None Does any household member use tobacco: No Alcohol Use: None Drug Use: None - Medications Home Medications: tuberculin,PPD,multi-puncture Allergy (Verified 08/17/18 17:34) CONTINUE taking the following medications nut.tx.gluc.intol,lac-free,soy [Glucerna] 1 ea PO BID 02/29/20 [History] potassium chloride 20 meq PO DAILY 02/29/20 [History] promethazine [Phenergan] 25 mg IM Q6H PRN 02/29/20 [History] - Review of Systems Constitutional: See HPI, Weakness Eyes: No Symptoms Reported ENT: No Symptoms Reported Respiratory: No Symptoms Reported Cardiovascular: See HPI, Light Headedness Gastrointestinal: No Symptoms Reported Genitourinary: No Symptoms Reported Musculoskeletal: No Symptoms Reported Skin: No Symptoms Reported Neurological: Weakness - Physical Exam Vital Signs: Temperature 99.0 F Pulse Rate [Left] 106 Pulse Rate 47 Respiratory Rate 24 Blood Pressure [Left Arm] 142/74 Blood Pressure [Right Arm] 131/66 Blood Pressure 169/77 O2 Sat by Pulse Oximetry 96 Oriented: Not Oriented Eyes: Normal Ear: Normal Nose: Normal Throat: Normal Respiratory: Diminished Throughout Cardiovascular: Bradycardia, Irregular. negative: S3, S4, Murmur : Normal Auscultation: Bowel Sounds: Normal Palpation: Normal Tenderness: Normal Skin: Normal Musculoskeletal: Normal Psychiatric: Other (PATIENT WAS INITIALLY OBTUNDED, SHE BECAME ALERT AFTER ATROPINE ) Mood Description: Calm Affect: Normal Speech Pattern: Clear - Assessment/Plan (1) Dehydration Status: Acute Plan: ADMIT, NORMAL SALINE AT 100ML/HR, ROCEPHIN 1G IV DAILY, DIFLUCAN 200MG IV DAILY, HUMULIN R SLIDING SCALE, ATROPINE 0.5MG IV PRN, KAYEXALATE 15G PO Q6H PRN, AND HOME MEDICATIONS WERE RESUMED WITH THE EXCEPTION OF VERAPAMIL (2) Acute renal failure Qualifiers: Acute renal failure type: unspecified Qualified Code(s): N17.9 - Acute kidney failure, unspecified Status: Acute (3) Urinary tract infection Qualifiers: Urinary tract infection type: acute cystitis Hematuria presence: without hematuria Qualified Code(s): N30.00 - Acute cystitis without hematuria Status: Acute Plan: ROCPEHIN 1G IV DAILY, CONTINUE TO MONITOR (4) Hyperkalemia Status: Acute Plan: KAYEXALATE 15G PO Q6H PRN, IVF, CONTINUE TO MONITOR (5) Hyponatremia Status: Acute Plan: IV FLUIDS, CONTINUE TO MONITOR (6) Bradycardia Status: Acute - Allergies Allergies/Adverse Reactions: Allergies Allergy/AdvReac Type Severity Reaction Status Date / Time tuberculin,PPD,multi-puncture Allergy Verified 08/17/18 17:34
[2020-03-01] MEDS: NITRODUR PATCH 0.4 MG/HR TD SCH (09:12)
[2020-03-01] MEDS: DIFLUCAN 200 MG IV PREMIX* 100 MG/50 ML BAG IV SCH (09:16)
[2020-03-01] MEDS: ROCEPHIN VIAL 1 GRAM 1 G in NS 100 ML IV + SPIKE MINIBAG* 100 ML IV SCH (09:19)
--- NOTE | 2020-03-01 12:57 | PCM.PROG ---
Progress Note - Progress Note for Day of Date of Exam: 03/01/20 - Subjective Subjective: IS BEING TREATED FOR BRADYCARDIA, HYPOTREMIA, HYPERKALEMIA, ACUTE RENAL FAILURE, DEHYDRATION, AND A URINARY TRACT INFECTION. TODAY, SHE IS ALERT AND ORIENTED, LYING IN BED ON MORNING ROUNDS. SHE REPORTS WEAKNESS THIS MORNING BUT DENIES OTHER COMPLAINTS. ON EXAMINATION, HEART IS REGU LAR IN RATE AND RHYTHM. BILATERAL LUNGS ARE NOTED WITH DIMINSHED LUNG SOUNDS THROUGHOUT. ABDOMEN IS ROUND, SOFT, AND NON-TENDER WITH NORMAL BOWEL SOUNDS NOTED IN ALL QUADRANTS. HER VITALS THIS MORNING ARE: 99.0-70-24-100%-131/66. LABS WERE OBTAINED. ABNORMAL LAB VALUES INCLUDE THE FOLLOWING: RBC 3.47, HGB 11.2, HCT 31.5, SODIUM 124, CHLORIDE 92, BUN 38, CREATININE 1.75, CALCIUM 8.1, TOTAL PROTEIN 6.1, ALBUMIN 3.2. A URINE CULTURE IS PENDING. SHE IS CURRENTLY RECEIVING NORMAL SALINE AT 100ML/HR, ROCEPHIN 1G IV DAILY, DIFLUCAN 200MG IV DAILY, HUMULIN R SLIDING SCALE, ATROPINE 0.5MG IV PRN, KAYEXALATE 15G PO Q6H PRN, AND HOME MEDICATIONS WERE RESUMED. PATIENTS DAUGHTER CALLED THIS MORNING TO REPORT TO US THAT SHE TESTED POSITIVE FOR COVID-19 TODAY. PATIENTS DAUGHTER REPORTS THAT SHE WAS AROUND HER MOTHER FOR AN EXTENDED PERIOD YESTERDAY AND HUGGED ON HER SEVERAL TIMES. WE WILL MOVE PATIENT TO THE QUARANTINE UNIT. WE WILL WAIT UNTIL WEDNESDAY TO TEST HER FOR COVID-19. WE WILL CONTINUE TO HOLD HER VERAPAMIL. OTHERWISE, WE WILL MONITOR LABS AND CONTINUE WITH CURRENT PLAN OF CARE. - Past Medical Family Social History Past Med/Fam/Surg Hx: No changes since H&P Allergies: Allergies tuberculin,PPD,multi-puncture Allergy (Verified 08/17/18 17:34) - Review of Systems ROS: No change since H&P - Vital Signs and I&O's Vital Signs: Temperature 99.0 F Pulse Rate [Left] 124 Pulse Rate 47 Respiratory Rate 20 Blood Pressure [Left Arm] 171/69 Blood Pressure [Right Arm] 131/66 Blood Pressure 169/77 O2 Sat by Pulse Oximetry 97 Intake and Output: Intake & Output 02/28/20 02/29/20 03/01/20 03/02/20 11:59 11:59 11:59 11:59 Intake Total 3200 / 3200 Output Total 4584 / 4584 Balance -1384 / -1384 - Physical Exam Oriented: Normal Eyes: Normal Ear: Normal Nose: Normal Throat: Normal Respiratory: Normal Cardiovascular: Bradycardia, Irregular. negative: S3, S4, Murmur : Normal Auscultation: Bowel Sounds: Normal Palpation: Normal Tenderness: Normal Skin: Normal Musculoskeletal: Normal Psychiatric: Normal Mood Description: Calm Affect: Normal Speech Pattern: Clear - Laboratory and Diagnostics Result Diagrams: 03/01/20 05:56 03/01/20 05:56 Labs: 02/29/20 10:30 Urine,Catheterized Urine Culture - Preliminary Laboratory WBC 6.1 X10^3/uL (3.6-10.0) 03/01/20 05:56 RBC 3.47 X10^6/uL (3.5-5.4) L 03/01/20 05:56 Hgb 11.2 g/dL (12.0-16.0) L 03/01/20 05:56 Hct 31.5 % (36.0-47.0) L 03/01/20 05:56 MCV 90.8 fL (80.0-100.0) 03/01/20 05:56 MCH 32.2 pg (27.0-34.0) 03/01/20 05:56 MCHC 35.4 g/dL (33.0-35.0) H 03/01/20 05:56 RDW 14.9 % (11.6-16.5) 03/01/20 05:56 Plt Count 229 X10^3/uL (150.0-450.0) 03/01/20 05:56 MPV 7.5 fL (7.4-11.0) 03/01/20 05:56 Neut % (Auto) 76.7 % (42.0-75.0) H 03/01/20 05:56 Lymph % (Auto) 9.8 % (21.0-51.0) L 03/01/20 05:56 [place] % (Auto) 12.5 % (0.0-13.0) 03/01/20 05:56 Eos % (Auto) 0.7 % (0.9-2.9) L 03/01/20 05:56 Baso % (Auto) 0.3 % (0.2-1.0) 03/01/20 05:56 Neut # (Auto) 4.6 x10^3/uL (2.2-4.8) 03/01/20 05:56 Lymph # (Auto) 0.6 X10^3/uL (1.3-2.9) L 03/01/20 05:56 [place] # (Auto) 0.8 x10^3/uL (0.3-0.8) 03/01/20 05:56 Eos # (Auto) 0.0 x10^3/uL (0.0-0.2) 03/01/20 05:56 Baso # (Auto) 0.0 X10^3/uL (0.0-0.1) 03/01/20 05:56 Absolute Nucleated RBC 0.0 /100WBC 03/01/20 05:56 Sodium 124 mmol/L (136-145) L* 03/01/20 05:56 Corrected Sodium TNP 03/01/20 05:56 Potassium 3.7 mmol/L (3.5-5.1) 03/01/20 05:56 Chloride 92 mmol/L (98-107) L 03/01/20 05:56 Carbon Dioxide 21.6 mmol/L (21-32) 03/01/20 05:56 BUN 38 mg/dL (7-18) H 03/01/20 05:56 Creatinine 1.75 mg/dL (0.55-1.02) H 03/01/20 05:56 Est GFR (MDRD) Af Amer 36 (>60) L 03/01/20 05:56 Est GFR (MDRD) Non-Af 30 (>60) L 03/01/20 05:56 Glucose 81 mg/dL (65-99) 03/01/20 05:56 POC Glucose (mg/dL) 84 mg/dL (65-99) 03/01/20 11:32 Calcium 8.2 mg/dL (8.5-10.1) L 03/01/20 05:56 Corrected Calcium 8.8 mg/dL (8.5-10.1) 03/01/20 05:56 Magnesium 2.0 mg/dL (1.7-2.9) 03/01/20 05:56 Total Bilirubin 0.60 mg/dL (0.2-1.0) 03/01/20 05:56 AST 36 Units/L (15-37) 03/01/20 05:56 ALT 37 Units/L (12-78) 03/01/20 05:56 Alkaline Phosphatase 114 Units/L (46-116) 03/01/20 05:56 Lactate Dehydrogenase 259 Units/L (81-234) H 02/29/20 09:35 Creatine Kinase 85 Units/L (26-192) 02/29/20 23:03 CK-MB (CK-2) 2.2 ng/mL (0-4.0) 02/29/20 23:03 CK/CKMB % Calc 2.6 % (<4) 02/29/20 23:03 Troponin I 0.05 ng/mL (0-1.5) 02/29/20 23:03 B-Natriuretic Peptide 288 pg/mL (0-79) H 02/29/20 09:35 Total Protein 6.1 g/dL (6.4-8.2) L 03/01/20 05:56 Albumin 3.2 g/dL (3.4-5.0) L 03/01/20 05:56 Globulin 2.9 g/dL (2.5-4.5) 03/01/20 05:56 Albumin/Globulin Ratio 1.1 Ratio (1.1-2.1) 03/01/20 05:56 Free T4 1.95 ng/dL (0.76-1.46) H 02/29/20 09:35 TSH 3rd Generation 5.664 uIU/mL (0.358-3.74) H 02/29/20 09:35 Specimen Type Catherized urine 02/29/20 10:30 Urine Color Yellow (YELLOW) 02/29/20 10:30 Urine Appearance Hazy (CLEAR) 02/29/20 10:30 Urine pH 5.0 (5.0 - 8.0) 02/29/20 10:30 Ur Specific [place] 1.020 (1.000-1.030) 02/29/20 10:30 Urine Protein 2+ (NEGATIVE) 02/29/20 10:30 Urine Glucose (UA) Negative (NEGATIVE) 02/29/20 10:30 Urine Ketones Negative (NEGATIVE) 02/29/20 10:30 Urine Occult Blood Negative (NEGATIVE) 02/29/20 10:30 Urine Nitrite Negative (NEGATIVE) 02/29/20 10:30 Urine Bilirubin Negative (NEGATIVE) 02/29/20 10:30 Urine Urobilinogen Normal (NORMAL) 02/29/20 10:30 Ur Leukocyte Esterase 3+ (NEGATIVE) 02/29/20 10:30 Urine RBC 0-2 /HPF (0-3) 02/29/20 10:30 Urine WBC 20-30 /HPF (0-5) A 02/29/20 10:30 Ur Squamous Epith Cells Rare /HPF (NEGATIVE) 02/29/20 10:30 Urine Bacteria Trace /HPF (NEGATIVE) 02/29/20 10:30 Urine Yeast Moderate /HPF (NEGATIVE) 02/29/20 10:30 Ur Culture Indicated? Yes/culture set up 02/29/20 10:30 Ur Random Urea Nitrogn Cancelled 02/29/20 10:30 Urine Creatinine 128.85 mg/dL (29-226) 02/29/20 10:30 - Plan (1) Dehydration Status: Inactive Plan: NORMAL SALINE AT 100ML/HR, ROCEPHIN 1G IV DAILY, DIFLUCAN 200MG IV DAILY, HUMULIN R SLIDING SCALE, ATROPINE 0.5MG IV PRN, KAYEXALATE 15G PO Q6H PRN, AND HOME MEDICATIONS WERE RESUMED WITH THE EXCEPTION OF VERAPAMIL (2) Acute renal failure Status: Acute Qualifiers: Acute renal failure type: unspecified Qualified Code(s): N17.9 - Acute kidney failure, unspecified (3) Urinary tract infection Status: Inactive Qualifiers: Urinary tract infection type: acute cystitis Hematuria presence: without hematuria Qualified Code(s): N30.00 - Acute cystitis without hematuria Plan: ROCPEHIN 1G IV DAILY, CONTINUE TO MONITOR (4) Hyperkalemia Status: Inactive Plan: KAYEXALATE 15G PO Q6H PRN, IVF, CONTINUE TO MONITOR (5) Hyponatremia Status: Inactive Plan: IV FLUIDS, CONTINUE TO MONITOR (6) Bradycardia Status: Resolved (7) Exposure to COVID-19 virus Status: Acute Plan: QUARANTINE, MONITOR SYMPTOMS, SWAB FOR COVID-19 ON WEDNESDAY
[2020-03-01] MEDS: SYNTHROID 75 mcg TAB PO SCH (16:30)
[2020-03-01] MEDS ORDERED: ZESTRIL TAB 20 MG ONE (17:38)
[2020-03-01] MEDS: ZESTRIL TAB 20 MG PO SCH (17:39)
[2020-03-01] MEDS: APRESOLINE TAB 25 MG PO SCH ×2 (17:39→22:01)
[2020-03-01] MEDS: CATAPRES-TTS-3 TD SCH (17:39)
[2020-03-01] MEDS: SNACK - Diabetic Appropriate PO SCH (20:16)
[2020-03-01] MEDS: CHECK PATCH XX SCH (20:46)
[2020-03-01] MEDS: LEVEMIR SC SCH (20:47)
[2020-03-01] MEDS: PATIENT'S HOME MEDICATION EACHEYE SCH (20:47)
[2020-03-02] MEDS: KAYEXALATE SUSP PO SCH ×2 (00:16→06:12)
[2020-03-02] MEDS ORDERED: VISTARIL PO PRN (00:39)
[2020-03-02] MEDS ORDERED: BENADRYL CAP 50 MG PO ONE ×2 (01:13→20:30)
[2020-03-02] MEDS: NS 1000 ML 1,000 ML IV SCH ×2 (01:18→11:07)
[2020-03-02] MEDS: APRESOLINE TAB 25 MG PO SCH ×3 (05:38→21:10)
[2020-03-02] MEDS: ARTIFICIAL TEARS DROPS OP SCH ×3 (05:39→21:43)
[2020-03-02 05:41] LABS: BASOPHILS % (AUTO) 0.7 % (0.2-1.0); EOSINOPHILS # (AUTO) 0.1 x10^3/uL (0.0-0.2); EOSINOPHILS % (AUTO) 0.9 % (0.9-2.9); HEMATOCRIT 32.9 % (36.0-47.0); HEMOGLOBIN 11.5 g/dL (12.0-16.0); LYMPHOCYTES % (AUTO) 14.6 % (21.0-51.0); MEAN CORPUSCULAR HEMOGLOBIN 31.9 pg (27.0-34.0); MEAN CORPUSCULAR HGB CONC 35.1 g/dL (33.0-35.0); MEAN CORPUSCULAR VOLUME 90.9 fL (80.0-100.0); MEAN PLATELET VOLUME 7.3 fL (7.4-11.0); MONOCYTES # (AUTO) 1.4 x10^3/uL (0.3-0.8); MONOCYTES % (AUTO) 21.4 % (0.0-13.0); NEUTROPHILS # (AUTO) 4.1 x10^3/uL (2.2-4.8); NEUTROPHILS % (AUTO) 62.4 % (42.0-75.0); PLATELET COUNT 257 X10^3/uL (150.0-450.0); RED BLOOD COUNT 3.61 X10^6/uL (3.5-5.4); RED CELL DISTRIBUTION WIDTH 14.7 % (11.6-16.5); WHITE BLOOD COUNT 6.6 X10^3/uL (3.6-10.0)
[2020-03-02 05:57] LABS: ALANINE AMINOTRANSFERASE 33 Units/L (12-78); ALBUMIN 3.4 g/dL (3.4-5.0); ALKALINE PHOSPHATASE 110 Units/L (46-116); ASPARTATE AMINO TRANSFERASE 29 Units/L (15-37); BLOOD UREA NITROGEN 14 mg/dL (7-18); CALCIUM 8.2 mg/dL (8.5-10.1); CARBON DIOXIDE 27.9 mmol/L (21-32); CHLORIDE 97 mmol/L (98-107); CREATININE 0.85 mg/dL (0.55-1.02); SODIUM 133 mmol/L (136-145); TOTAL PROTEIN 6.6 g/dL (6.4-8.2); eGFR NON BLACK RACES > 60 (>60)
[2020-03-02] MEDS ORDERED: KLOR-CON PO PRN (06:11)
[2020-03-02] MEDS ORDERED: POTASSIUM CHL 60 MEQ/NS 0.45% 500 ML IV PRN (06:11)
[2020-03-02] MEDS ORDERED: POTASSIUM CHLORIDE LIQ 20 MEQ UDC PO PRN (06:11)
[2020-03-02] MEDS ORDERED: POTASSIUM CHL 40 MEQ/NS 0.45% 500 ML IV PRN (06:11)
[2020-03-02] MEDS ORDERED: MICRO K EXTEN CAP 10 MEQ PO PRN (06:11)
[2020-03-02] MEDS: K-RIDER 10 MEQ/NS 100 ML 10 MEQ/100 ML BAG IV PRN ×2 (06:25→12:00)
[2020-03-02 06:39] LABS: PLATELET MORPHOLOGY COMMENT NORMAL (NORMAL)
[2020-03-02] MEDS ORDERED: ZESTRIL TAB 20 MG ONE ×2 (08:30→20:26)
[2020-03-02] MEDS: DIFLUCAN 200 MG IV PREMIX* 100 MG/50 ML BAG IV SCH (08:36)
[2020-03-02] MEDS: COLACE CAP 100 MG PO SCH ×2 (09:00→21:10)
[2020-03-02] MEDS: FERROUS GLUCONATE PO SCH (09:01)
[2020-03-02] MEDS: ELIQUIS PO SCH ×2 (09:01→21:09)
[2020-03-02] MEDS: JANUVIA PO SCH (09:01)
[2020-03-02] MEDS: LIPITOR TAB 20 MG PO SCH (09:02)
[2020-03-02] MEDS: QUESTRAN POWDER FOR ORAL SUSP PO SCH (09:02)
[2020-03-02] MEDS: PROTONIX TAB 40 MG PO SCH (09:02)
[2020-03-02] MEDS: NITRODUR PATCH 0.4 MG/HR TD SCH (09:03)
[2020-03-02] MEDS: MYLICON TAB 80 MG CHEW PO SCH ×2 (09:03→21:09)
[2020-03-02] MEDS: TAB-A-VITE PO SCH (09:04)
[2020-03-02] MEDS: ZESTRIL TAB 20 MG PO SCH ×2 (09:04→21:09)
[2020-03-02] MEDS: ROCEPHIN VIAL 1 GRAM 1 G in NS 100 ML IV + SPIKE MINIBAG* 100 ML IV SCH (09:04)
[2020-03-02] MEDS: CHECK PATCH XX SCH ×2 (09:15→21:56)
[2020-03-02] MEDS ORDERED: ULTRAM ONE (10:03)
[2020-03-02] MEDS: ULTRAM PO PRN (10:07)
[2020-03-02] MEDS: BENADRYL CAP/TAB 25 MG PO PRN ×2 (11:45→21:10)
[2020-03-02] MEDS: K-DUR TAB 20 MEQ PO PRN ×2 (12:00→16:46)
[2020-03-02] MEDS: HumuLIN R SC PRN (12:01)
[2020-03-02] MEDS: MAGNESIUM SULFATE 1 GRAM/100 mL PREMIX 1 GM/100 ML BAG IV PRN ×2 (14:36→16:46)
[2020-03-02] MEDS ORDERED: ZOFRAN INJ 4 MG VIAL ONE (16:34)
[2020-03-02] MEDS: ZOFRAN INJ 4 MG VIAL IVP PRN ×2 (16:45→21:50)
[2020-03-02] MEDS: SYNTHROID 75 mcg TAB PO SCH (16:45)
[2020-03-02] MEDS ORDERED: LOPRESSOR INJ 5 MG AMP IVP ONE (19:24)
[2020-03-02] MEDS: PATIENT'S HOME MEDICATION EACHEYE SCH (21:42)
[2020-03-02] MEDS: SNACK - Diabetic Appropriate PO SCH (21:42)
[2020-03-02] MEDS: LEVEMIR SC SCH (21:44)
[2020-03-02] MEDS: LANOXIN INJ IVP SCH (21:45)
[2020-03-03] MEDS: NS 1000 ML 1,000 ML IV SCH ×5 (04:00→16:02)
[2020-03-03 05:19] LABS: BASOPHILS # (AUTO) 0.1 X10^3/uL (0.0-0.1); BASOPHILS % (AUTO) 1.5 % (0.2-1.0); EOSINOPHILS # (AUTO) 0.4 x10^3/uL (0.0-0.2); EOSINOPHILS % (AUTO) 6.7 % (0.9-2.9); HEMATOCRIT 33.7 % (36.0-47.0); HEMOGLOBIN 11.9 g/dL (12.0-16.0); LYMPHOCYTES # (AUTO) 1.2 X10^3/uL (1.3-2.9); LYMPHOCYTES % (AUTO) 21.8 % (21.0-51.0); MEAN CORPUSCULAR HEMOGLOBIN 32.4 pg (27.0-34.0); MEAN CORPUSCULAR HGB CONC 35.5 g/dL (33.0-35.0); MEAN CORPUSCULAR VOLUME 91.3 fL (80.0-100.0); MEAN PLATELET VOLUME 7.1 fL (7.4-11.0); MONOCYTES % (AUTO) 18.1 % (0.0-13.0); NEUTROPHILS # (AUTO) 2.8 x10^3/uL (2.2-4.8); NEUTROPHILS % (AUTO) 51.9 % (42.0-75.0); PLATELET COUNT 211 X10^3/uL (150.0-450.0); RED BLOOD COUNT 3.69 X10^6/uL (3.5-5.4); RED CELL DISTRIBUTION WIDTH 14.9 % (11.6-16.5); WHITE BLOOD COUNT 5.4 X10^3/uL (3.6-10.0)
[2020-03-03 05:29] LABS: ALANINE AMINOTRANSFERASE 27 Units/L (12-78); ALBUMIN 2.9 g/dL (3.4-5.0); ALKALINE PHOSPHATASE 103 Units/L (46-116); ASPARTATE AMINO TRANSFERASE 18 Units/L (15-37); BLOOD UREA NITROGEN 9 mg/dL (7-18); CALCIUM 7.9 mg/dL (8.5-10.1); CARBON DIOXIDE 26.5 mmol/L (21-32); CHLORIDE 98 mmol/L (98-107); COR CA(FOR HYPOALB) 8.8 mg/dL (8.5-10.1); CREATININE 0.92 mg/dL (0.55-1.02); MAGNESIUM 1.9 mg/dL (1.7-2.9); SODIUM 132 mmol/L (136-145); eGFR NON BLACK RACES > 60 (>60)
[2020-03-03] MEDS: APRESOLINE TAB 25 MG PO SCH ×3 (06:09→21:03)
[2020-03-03] MEDS: ARTIFICIAL TEARS DROPS OP SCH ×3 (06:10→21:05)
[2020-03-03] MEDS ORDERED: ZESTRIL TAB 20 MG ONE ×2 (08:31→20:58)
[2020-03-03] MEDS: ELIQUIS PO SCH ×2 (08:36→21:04)
[2020-03-03] MEDS: COLACE CAP 100 MG PO SCH ×2 (08:36→21:02)
[2020-03-03] MEDS: ZESTRIL TAB 20 MG PO SCH ×2 (08:36→21:03)
[2020-03-03] MEDS: TAB-A-VITE PO SCH (08:37)
[2020-03-03] MEDS: JANUVIA PO SCH (08:37)
[2020-03-03] MEDS: LIPITOR TAB 20 MG PO SCH (08:37)
[2020-03-03] MEDS: FERROUS GLUCONATE PO SCH (08:37)
[2020-03-03] MEDS: PROTONIX TAB 40 MG PO SCH (08:38)
[2020-03-03] MEDS: ROCEPHIN VIAL 1 GRAM 1 G in NS 100 ML IV + SPIKE MINIBAG* 100 ML IV SCH (08:40)
[2020-03-03] MEDS: CHECK PATCH XX SCH ×2 (08:40→21:03)
[2020-03-03] MEDS: LANOXIN INJ IVP SCH (09:03)
[2020-03-03] MEDS: QUESTRAN POWDER FOR ORAL SUSP PO SCH (09:13)
[2020-03-03] MEDS: MYLICON TAB 80 MG CHEW PO SCH ×2 (09:13→21:11)
[2020-03-03] MEDS: NITRODUR PATCH 0.4 MG/HR TD SCH (09:15)
[2020-03-03] MEDS: DIFLUCAN 200 MG IV PREMIX* 200 MG/100 ML BAG IV SCH (09:20)
[2020-03-03] MEDS: SYNTHROID 75 mcg TAB PO SCH (15:48)
[2020-03-03] MEDS: HumuLIN R SC PRN ×2 (15:48→21:49)
[2020-03-03] MEDS: SNACK - Diabetic Appropriate PO SCH (20:00)
[2020-03-03] MEDS: ULTRAM PO PRN (21:05)
[2020-03-03] MEDS: PATIENT'S HOME MEDICATION EACHEYE SCH (21:05)
[2020-03-03] MEDS: BENADRYL CAP 50 MG PO PRN (21:06)
[2020-03-03] MEDS: LEVEMIR SC SCH (21:48)
[2020-03-04] MEDS: NS 1000 ML 1,000 ML IV SCH ×4 (02:40→16:25)
[2020-03-04] MEDS: APRESOLINE TAB 25 MG PO SCH ×3 (05:00→22:00)
[2020-03-04] MEDS: ARTIFICIAL TEARS DROPS OP SCH ×3 (05:00→21:32)
[2020-03-04 06:09] LABS: BASOPHILS # (AUTO) 0.1 X10^3/uL (0.0-0.1); BASOPHILS % (AUTO) 0.9 % (0.2-1.0); EOSINOPHILS # (AUTO) 0.5 x10^3/uL (0.0-0.2); EOSINOPHILS % (AUTO) 8.2 % (0.9-2.9); HEMATOCRIT 33.4 % (36.0-47.0); HEMOGLOBIN 11.7 g/dL (12.0-16.0); LYMPHOCYTES % (AUTO) 15.7 % (21.0-51.0); MEAN CORPUSCULAR HEMOGLOBIN 32.2 pg (27.0-34.0); MEAN PLATELET VOLUME 7.3 fL (7.4-11.0); MONOCYTES # (AUTO) 1.1 x10^3/uL (0.3-0.8); MONOCYTES % (AUTO) 16.8 % (0.0-13.0); NEUTROPHILS # (AUTO) 3.9 x10^3/uL (2.2-4.8); NEUTROPHILS % (AUTO) 58.4 % (42.0-75.0); PLATELET COUNT 217 X10^3/uL (150.0-450.0); RED BLOOD COUNT 3.63 X10^6/uL (3.5-5.4); RED CELL DISTRIBUTION WIDTH 14.4 % (11.6-16.5); WHITE BLOOD COUNT 6.7 X10^3/uL (3.6-10.0)
[2020-03-04 06:16] LABS: ALANINE AMINOTRANSFERASE 22 Units/L (12-78); ALBUMIN 2.8 g/dL (3.4-5.0); ALKALINE PHOSPHATASE 91 Units/L (46-116); ASPARTATE AMINO TRANSFERASE 15 Units/L (15-37); BLOOD UREA NITROGEN 7 mg/dL (7-18); CALCIUM 7.7 mg/dL (8.5-10.1); CHLORIDE 98 mmol/L (98-107); COR CA(FOR HYPOALB) 8.7 mg/dL (8.5-10.1); LACTATE DEHYDROGENASE 173 Units/L (81-234); SODIUM 130 mmol/L (136-145); TOTAL PROTEIN 5.8 g/dL (6.4-8.2); eGFR NON BLACK RACES > 60 (>60)
[2020-03-04] MEDS ORDERED: ZESTRIL TAB 20 MG ONE ×2 (08:13→20:54)
[2020-03-04] MEDS: CHECK PATCH XX SCH ×2 (08:15→21:00)
[2020-03-04] MEDS: COLACE CAP 100 MG PO SCH ×2 (08:16→21:29)
[2020-03-04] MEDS: LIPITOR TAB 20 MG PO SCH (08:17)
[2020-03-04] MEDS: TAB-A-VITE PO SCH (08:17)
[2020-03-04] MEDS: QUESTRAN POWDER FOR ORAL SUSP PO SCH (08:17)
[2020-03-04] MEDS: FERROUS GLUCONATE PO SCH (08:17)
[2020-03-04] MEDS: ZESTRIL TAB 20 MG PO SCH ×2 (08:18→21:00)
[2020-03-04] MEDS: JANUVIA PO SCH (08:18)
[2020-03-04] MEDS: ELIQUIS PO SCH ×2 (08:18→21:29)
[2020-03-04] MEDS: MYLICON TAB 80 MG CHEW PO SCH ×2 (08:19→21:30)
[2020-03-04] MEDS: PROTONIX TAB 40 MG PO SCH (08:19)
[2020-03-04] MEDS: NITRODUR PATCH 0.4 MG/HR TD SCH (08:19)
[2020-03-04] MEDS: ROCEPHIN VIAL 1 GRAM 1 G in NS 100 ML IV + SPIKE MINIBAG* 100 ML IV SCH (08:19)
[2020-03-04] MEDS: DIFLUCAN 200 MG IV PREMIX* 200 MG/100 ML BAG IV SCH (09:30)
[2020-03-04] MEDS: HumuLIN R SC PRN ×2 (10:39→15:55)
[2020-03-04] MEDS: SYNTHROID 75 mcg TAB PO SCH (15:45)
--- NOTE | 2020-03-04 19:42 | PCM.PROG ---
Progress Note - Progress Note for Day of Date of Exam: 03/04/20 - Subjective Subjective: IS BEING TREATED FOR BRADYCARDIA, HYPOTREMIA, HYPERKALEMIA, ACUTE RENAL FAILURE, DEHYDRATION, AND A URINARY TRACT INFECTION. BRADYCARDIA, HYPERKALEMIA, AND ACUTE RENAL FAILURE HAVE RESOLVED. SHE WAS MOVED TO THE QUARANTINE UNIT ON WEDNESDAY DUE TO DIRECT EXPOSURE TO A COVID-19 POSITIVE FAMILY MEMBER. TODAY, SHE IS ALERT AND ORIENTED, LYING IN BED ON MORNING ROUNDS. SHE REPORTS WEAKNESS THIS MORNING BUT DENIES OTHER COMPLAINTS. ON EXAMINATION, HEART IS REGULAR IN RATE AND RHYTHM. BILATERAL LUNGS ARE NOTED WITH DIMINSHED LUNG SOUNDS THROUGHOUT. ABDOMEN IS ROUND, SOFT, AND NON-TENDER WITH NORMAL BOWEL SOUNDS NOTED IN ALL QUADRANTS. HER VITALS THIS MORNING ARE: 98.8-73-20-97%NC-135 /58. LABS WERE OBTAINED. ABNORMAL LAB VALUES INCLUDE THE FOLLOWING: HGB 11.7, HCT 33.4, SODIUM 130, CALCIUM 7.7, CRP 3.50, TOTAL PROTEIN 5.8, ALBUMIN 2.8. A URINE CULTURE IS PENDING. SHE IS CURRENTLY RECEIVING NORMAL SALINE AT 100ML/HR, ROCEPHIN 1G IV DAILY, DIFLUCAN 200MG IV DAILY, HUMULIN R SLIDING SCALE, ATROPINE 0.5MG IV PRN, KAYEXALATE 15G PO Q6H PRN, AND HOME MEDICATIONS WERE RESUMED. TODAY, WE WILL SWAB PATIENT FOR COVID-19. OTHERWISE, WE WILL CONTINUE WITH CURRENT PLAN OF CARE. WE WILL FOLLOW UP WITH AM LABS AND CONTINUE TO MONITOR. - Past Medical Family Social History Past Med/Fam/Surg Hx: No changes since H&P Allergies: Allergies tuberculin,PPD,multi-puncture Allergy (Verified 08/17/18 17:34) - Review of Systems ROS: No change since H&P - Vital Signs and I&O's Vital Signs: Temperature 98.8 F Pulse Rate [Left] 92 Pulse Rate 113 Respiratory Rate 18 Blood Pressure [Left Calf] 176/89 Blood Pressure [Left Arm] 145/93 Blood Pressure [Right Arm] 158/74 Blood Pressure 157/97 O2 Sat by Pulse Oximetry 100 Intake and Output: Intake & Output 03/02/20 03/03/20 03/04/20 03/05/20 11:59 11:59 11:59 11:59 Intake Total 3270 / 3270 3330 / 3330 4170 / 4170 1821 / 1821 Output Total 7140 / 7140 2500 / 2500 6050 / 6050 275 / 275 Balance -3870 / -3870 830 / 830 -1880 / -1880 1546 / 1546 - Physical Exam Oriented: Normal Eyes: Normal Ear: Normal Nose: Normal Throat: Normal Respiratory: Normal, Generalized, Diminished Cardiovascular: Normal. negative: S3, S4, Murmur : Normal Auscultation: Bowel Sounds: Normal Palpation: Normal Tenderness: Normal Skin: Normal Musculoskeletal: Normal Psychiatric: Normal Mood Description: Calm Affect: Normal Speech Pattern: Clear - Laboratory and Diagnostics Result Diagrams: 03/04/20 04:51 03/04/20 04:51 Labs: 02/29/20 10:30 Urine,Catheterized Urine Culture - Final Laboratory WBC 6.7 X10^3/uL (3.6-10.0) 03/04/20 04:51 RBC 3.63 X10^6/uL (3.5-5.4) 03/04/20 04:51 Hgb 11.7 g/dL (12.0-16.0) L 03/04/20 04:51 Hct 33.4 % (36.0-47.0) L 03/04/20 04:51 MCV 92.0 fL (80.0-100.0) 03/04/20 04:51 MCH 32.2 pg (27.0-34.0) 03/04/20 04:51 MCHC 35.0 g/dL (33.0-35.0) 03/04/20 04:51 RDW 14.4 % (11.6-16.5) 03/04/20 04:51 Plt Count 217 X10^3/uL (150.0-450.0) 03/04/20 04:51 Plt Count Comment Adequate (ADEQUATE) 03/02/20 05:08 MPV 7.3 fL (7.4-11.0) L 03/04/20 04:51 Neut % (Auto) 58.4 % (42.0-75.0) 03/04/20 04:51 Lymph % (Auto) 15.7 % (21.0-51.0) L 03/04/20 04:51 [place] % (Auto) 16.8 % (0.0-13.0) H 03/04/20 04:51 Eos % (Auto) 8.2 % (0.9-2.9) H 03/04/20 04:51 Baso % (Auto) 0.9 % (0.2-1.0) 03/04/20 04:51 Neut # (Auto) 3.9 x10^3/uL (2.2-4.8) 03/04/20 04:51 Lymph # (Auto) 1.0 X10^3/uL (1.3-2.9) L 03/04/20 04:51 [place] # (Auto) 1.1 x10^3/uL (0.3-0.8) H 03/04/20 04:51 Eos # (Auto) 0.5 x10^3/uL (0.0-0.2) H 03/04/20 04:51 Baso # (Auto) 0.1 X10^3/uL (0.0-0.1) 03/04/20 04:51 Absolute Nucleated RBC 0.0 /100WBC 03/04/20 04:51 Total Counted 100 03/02/20 05:08 Neutrophils % (Manual) 61 % (39-76) 03/02/20 05:08 Lymphocytes % (Manual) 11 % (13-43) L 03/02/20 05:08 Monocytes % (Manual) 26 % (4-9) H 03/02/20 05:08 Eosinophils % (Manual) 2 % (0-6) 03/02/20 05:08 Plt Morphology Comment Normal (NORMAL) 03/02/20 05:08 RBC Morphology Normal (NORMAL) 03/02/20 05:08 Sodium 130 mmol/L (136-145) L 03/04/20 04:51 Corrected Sodium TNP 03/04/20 04:51 Potassium 3.6 mmol/L (3.5-5.1) 03/04/20 04:51 Chloride 98 mmol/L (98-107) 03/04/20 04:51 Carbon Dioxide 29.0 mmol/L (21-32) 03/04/20 04:51 BUN 7 mg/dL (7-18) 03/04/20 04:51 Creatinine 0.70 mg/dL (0.55-1.02) 03/04/20 04:51 Est GFR (MDRD) Af Amer > 60 (>60) 03/04/20 04:51 Est GFR (MDRD) Non-Af > 60 (>60) 03/04/20 04:51 Glucose 68 mg/dL (65-99) 03/04/20 04:51 POC Glucose (mg/dL) 84 mg/dL (65-99) 03/01/20 11:32 Calcium 7.7 mg/dL (8.5-10.1) L 03/04/20 04:51 Corrected Calcium 8.7 mg/dL (8.5-10.1) 03/04/20 04:51 Magnesium 1.9 mg/dL (1.7-2.9) 03/03/20 04:28 Ferritin 84 ng/mL (8-252) 03/04/20 04:51 Total Bilirubin 0.40 mg/dL (0.2-1.0) 03/04/20 04:51 AST 15 Units/L (15-37) 03/04/20 04:51 ALT 22 Units/L (12-78) 03/04/20 04:51 Alkaline Phosphatase 91 Units/L (46-116) 03/04/20 04:51 Lactate Dehydrogenase 173 Units/L (81-234) 03/04/20 04:51 Creatine Kinase 85 Units/L (26-192) 02/29/20 23:03 CK-MB (CK-2) 2.2 ng/mL (0-4.0) 02/29/20 23:03 CK/CKMB % Calc 2.6 % (<4) 02/29/20 23:03 Troponin I 0.05 ng/mL (0-1.5) 02/29/20 23:03 C-Reactive Protein 3.50 mg/L (0-3.0) H 03/04/20 04:51 B-Natriuretic Peptide 288 pg/mL (0-79) H 02/29/20 09:35 Total Protein 5.8 g/dL (6.4-8.2) L 03/04/20 04:51 Albumin 2.8 g/dL (3.4-5.0) L 03/04/20 04:51 Globulin 3.0 g/dL (2.5-4.5) 03/04/20 04:51 Albumin/Globulin Ratio 0.9 Ratio (1.1-2.1) L 03/04/20 04:51 Free T4 1.95 ng/dL (0.76-1.46) H 02/29/20 09:35 TSH 3rd Generation 5.664 uIU/mL (0.358-3.74) H 02/29/20 09:35 Specimen Type Catherized urine 02/29/20 10:30 Urine Color Yellow (YELLOW) 02/29/20 10:30 Urine Appearance Hazy (CLEAR) 02/29/20 10:30 Urine pH 5.0 (5.0 - 8.0) 02/29/20 10:30 Ur Specific [place] 1.020 (1.000-1.030) 02/29/20 10:30 Urine Protein 2+ (NEGATIVE) 02/29/20 10:30 Urine Glucose (UA) Negative (NEGATIVE) 02/29/20 10:30 Urine Ketones Negative (NEGATIVE) 02/29/20 10:30 Urine Occult Blood Negative (NEGATIVE) 02/29/20 10:30 Urine Nitrite Negative (NEGATIVE) 02/29/20 10:30 Urine Bilirubin Negative (NEGATIVE) 02/29/20 10:30 Urine Urobilinogen Normal (NORMAL) 02/29/20 10:30 Ur Leukocyte Esterase 3+ (NEGATIVE) 02/29/20 10:30 Urine RBC 0-2 /HPF (0-3) 02/29/20 10:30 Urine WBC 20-30 /HPF (0-5) A 02/29/20 10:30 Ur Squamous Epith Cells Rare /HPF (NEGATIVE) 02/29/20 10:30 Urine Bacteria Trace /HPF (NEGATIVE) 02/29/20 10:30 Urine Yeast Moderate /HPF (NEGATIVE) 02/29/20 10:30 Ur Culture Indicated? Yes/culture set up 02/29/20 10:30 Ur Random Urea Nitrogn Cancelled 02/29/20 10:30 Urine Creatinine 128.85 mg/dL (29-226) 02/29/20 10:30 Digoxin < 0.30 ng/mL (0.9-2) L 03/02/20 18:35 SARS-CoV-2 (PCR) Negative (NEGATIVE) 03/04/20 09:50 - Plan (1) Dehydration Status: Inactive Plan: NORMAL SALINE AT 100ML/HR, ROCEPHIN 1G IV DAILY, DIFLUCAN 200MG IV DAILY, HUMULIN R SLIDING SCALE, ATROPINE 0.5MG IV PRN, KAYEXALATE 15G PO Q6H PRN, AND HOME MEDICATIONS WERE RESUMED WITH THE EXCEPTION OF VERAPAMIL (2) Acute renal failure Status: Resolved Qualifiers: Acute renal failure type: unspecified Qualified Code(s): N17.9 - Acute kidney failure, unspecified (3) Urinary tract infection Status: Inactive Qualifiers: Urinary tract infection type: acute cystitis Hematuria presence: without hematuria Qualified Code(s): N30.00 - Acute cystitis without hematuria Plan: ROCPEHIN 1G IV DAILY, CONTINUE TO MONITOR (4) Exposure to COVID-19 virus Status: Acute Plan: QUARANTINE, MONITOR SYMPTOMS, SWAB FOR COVID-19 ON WEDNESDAY (5) Hyperkalemia Status: Resolved (6) Hyponatremia Status: Resolved (7) Bradycardia Status: Resolved
[2020-03-04] MEDS: SNACK - Diabetic Appropriate PO SCH (21:28)
[2020-03-04] MEDS: PATIENT'S HOME MEDICATION EACHEYE SCH (21:30)
[2020-03-04] MEDS: LEVEMIR SC SCH (21:33)
[2020-03-04] MEDS: MILK OF MAGNESIA PO PRN (22:59)
[2020-03-05] MEDS: NS 1000 ML 1,000 ML IV SCH ×2 (01:56→08:28)
[2020-03-05] MEDS: HumuLIN R SC PRN ×2 (01:58→10:33)
[2020-03-05] MEDS: CATAPRES-TTS-3 TD SCH (02:37)
[2020-03-05 05:34] LABS: BASOPHILS # (AUTO) 0.1 X10^3/uL (0.0-0.1); BASOPHILS % (AUTO) 0.9 % (0.2-1.0); EOSINOPHILS # (AUTO) 0.7 x10^3/uL (0.0-0.2); EOSINOPHILS % (AUTO) 12.5 % (0.9-2.9); HEMOGLOBIN 11.6 g/dL (12.0-16.0); LYMPHOCYTES % (AUTO) 18.8 % (21.0-51.0); MEAN CORPUSCULAR HEMOGLOBIN 32.3 pg (27.0-34.0); MEAN CORPUSCULAR HGB CONC 35.1 g/dL (33.0-35.0); MEAN CORPUSCULAR VOLUME 91.9 fL (80.0-100.0); MEAN PLATELET VOLUME 7.2 fL (7.4-11.0); MONOCYTES # (AUTO) 0.8 x10^3/uL (0.3-0.8); MONOCYTES % (AUTO) 15.1 % (0.0-13.0); NEUTROPHILS # (AUTO) 2.8 x10^3/uL (2.2-4.8); NEUTROPHILS % (AUTO) 52.7 % (42.0-75.0); PLATELET COUNT 215 X10^3/uL (150.0-450.0); RED BLOOD COUNT 3.59 X10^6/uL (3.5-5.4); RED CELL DISTRIBUTION WIDTH 14.6 % (11.6-16.5); WHITE BLOOD COUNT 5.4 X10^3/uL (3.6-10.0)
[2020-03-05 05:53] LABS: ALANINE AMINOTRANSFERASE 19 Units/L (12-78); ALBUMIN 2.9 g/dL (3.4-5.0); ALKALINE PHOSPHATASE 100 Units/L (46-116); ASPARTATE AMINO TRANSFERASE 14 Units/L (15-37); BLOOD UREA NITROGEN 6 mg/dL (7-18); CARBON DIOXIDE 28.4 mmol/L (21-32); CHLORIDE 99 mmol/L (98-107); COR CA(FOR HYPOALB) 8.9 mg/dL (8.5-10.1); COR NA(FOR HYPERGLY) 133 mmol/L (136-145); CREATININE 0.73 mg/dL (0.55-1.02); SODIUM 132 mmol/L (136-145); eGFR NON BLACK RACES > 60 (>60)
[2020-03-05] MEDS: APRESOLINE TAB 25 MG PO SCH (06:00)
[2020-03-05] MEDS: ARTIFICIAL TEARS DROPS OP SCH (06:01)
[2020-03-05] MEDS: NITRODUR PATCH 0.4 MG/HR TD SCH ×2 (06:56→08:25)
[2020-03-05] MEDS ORDERED: DULCOLAX SUPPOSITORY 10 MG RECTAL ONE (07:20)
[2020-03-05] MEDS: ROCEPHIN VIAL 1 GRAM 1 G in NS 100 ML IV + SPIKE MINIBAG* 100 ML IV SCH (08:02)
[2020-03-05] MEDS ORDERED: ZESTRIL TAB 20 MG ONE (08:17)
[2020-03-05] MEDS: COLACE CAP 100 MG PO SCH (08:19)
[2020-03-05] MEDS ORDERED: VISTARIL PO ONE (08:19)
[2020-03-05] MEDS: MYLICON TAB 80 MG CHEW PO SCH (08:19)
[2020-03-05] MEDS: ELIQUIS PO SCH (08:20)
[2020-03-05] MEDS: TAB-A-VITE PO SCH (08:21)
[2020-03-05] MEDS: PROTONIX TAB 40 MG PO SCH (08:21)
[2020-03-05] MEDS: ZESTRIL TAB 20 MG PO SCH (08:22)
[2020-03-05] MEDS: LIPITOR TAB 20 MG PO SCH (08:22)
[2020-03-05] MEDS: BENADRYL CAP 50 MG PO PRN (08:22)
[2020-03-05] MEDS: FERROUS GLUCONATE PO SCH (08:23)
[2020-03-05] MEDS: JANUVIA PO SCH (08:23)
[2020-03-05] MEDS: QUESTRAN POWDER FOR ORAL SUSP PO SCH (08:23)
[2020-03-05] MEDS: DIFLUCAN 200 MG IV PREMIX* 200 MG/100 ML BAG IV SCH (08:24)
[2020-03-05] MEDS: CHECK PATCH XX SCH (08:26)
[2020-03-05] MEDS ORDERED: TOPROL XL PO SCH (10:00)
[2020-03-05] MEDS: MILK OF MAGNESIA PO PRN (10:29)
[2020-03-05] MEDS ORDERED: BUTT CREAM (COMPOUND) ONE (12:10)
[2020-03-05] MEDS: BUTT CREAM (COMPOUND) TOP PRN ×2 (12:24→13:28)
[2020-03-05 13:20] VITALS: BP 158/69
== END 2020-03-05 13:30 | DRG 309 ==
LOC: ER 08:05 → MED/SURG 12:05 → ICU 03-01 12:20
PROVIDERS: ADMIT Internal Medicine; ATTEND Internal Medicine
DX: E86.0 Dehydration; Z91.81 History of falling; N30.00 Acute cystitis without hematuria; K21.9 Gastro-esophageal reflux disease without esophagitis; R07.89 Other chest pain; R26.89 Other abnormalities of gait and mobility; L89.621 Pressure ulcer of left heel, stage 1; N17.8 Other acute kidney failure; I25.10 Atherosclerotic heart disease of native coronary artery without angina pectoris; R40.4 Transient alteration of awareness; L89.611 Pressure ulcer of right heel, stage 1; R61 Generalized hyperhidrosis; E87.1 Hypo-osmolality and hyponatremia; Z20.828 Contact with and (suspected) exposure to other viral communicable diseases; E03.8 Other specified hypothyroidism; R00.1 Bradycardia, unspecified; E87.5 Hyperkalemia; E11.65 Type 2 diabetes mellitus with hyperglycemia
CPT/HCPCS: 36415; 51702; 71010; 71045; 80053; 80162; 81001; 82550; 82553; 82570; 82728; 83615; 83735; 83880; 84132; 84439; 84443; 84484; 85025; 86140; 87086; 87635; 92610; 93005; 93041; 94760; 96365; 96367; 96374; 96375; 97110; 97162; 97166; 97535; 99285; A4222; J0461; J0610; J0696; J1160; J1450; J1815; J2405; J3475; J3480; J3490; J7030; J7050

== ENCOUNTER 2020-03-10 09:22 | Inpatient (IN) ==
--- NOTE | 2020-03-10 09:38 | DR.GENAD ---
HPI Time Seen Time Seen by Provider: 03/10/20 09:34 PCP Primary Care Physician: TIFFANI MARTINEZ HPI Comment HPI Comment: PATIENT IS 84YR OLD FEMALE IN ER DIAPHORETIC WITH RAPID HEART RATE AND LEFT SIDED CHEST PAIN WITH LOW GRADE FEVER. SHE IS HERE FROM [facility]. SHE WAS IN HOSPITAL FEW DAYS AGO WITH BRADYCARDIA. CHECHED FOR COVID, QUICK TEST AND WAS NEGATIVE. PATIENT IS WEAK AND DRAINED. SHE IS DIABETIC BUT GLUCOSE IS NOT LOW IN ER. WAS IN HOSPITAL FOR BARDYCARDIA AND RENAL FAILURE AND DISCHARGE BACK TO RETIREMENT ON 03/05/2020. WAS IMPROVING THEN GOT WORSE TODAY. Complaint/Symptoms Chief Complaint Doctors Comments: HERE IN ER FROM RETIREMENT DIAPHORETIC, LEFT CHEST PAIN AND RAPID HEART RATE. Chief Complaint:: PT TO ER WITH C/O > HR 158'S PER [facility] STAFF, AND PT DIAPHOR ETIC PT C/O LEFT SIDE PAIN , PT HR > ON 03/10/20 PT GIVEN XTRA LOPRESSOR ,DUE TO HR 140-170'S AND PTS HR CONTROLLED AND PT'S > WAS CONTROLLED AND THIS AM PER HR >, TEMP 99.7, AND THEN > THIS AM AND DR. GALLAGHER FROZEN [employer] FOR TIFFANI MARTINEZ AGREED TO ADMIT PT ,,BR COVID-19 Coronavirus risk:travel/contact w/high risk person: Yes Has patient experienced Coronavirus symptoms: Yes Coronavirus symptoms experienced: Fever and Shortness of Breath Nurses notes reviewed Nurses Notes Review: Yes Source History Provided: Patient Mode of Arrival Mode of Arrival: Stretcher Timing Onset of Chief Complaint: 03/09/20 Came on: Suddenly Duration Duration: Constant Duration: Hours Severity Severity: Moderate Modifying Factors Worsens:: EXERTION. Improves:: REST. Associated Signs and Symptoms Associated Signs and Symptoms: FEVER, CHEST PAIN. PMH PMH Past Medical History: Yes Past Medical History: Anemia, Arthritis, Asthma, CHF, Coronary Artery Disease, CVA, Depression, Diabetes, Dyslipidemia, GERD, Hypertension and Hypothyroidism Past Surgical History: Yes Surgical History: Angioplasty/Stents and SERVICES TECH Surgery Family History History of Family Medical Conditions: No Family Medical History: Diabetes Mellitus, Coronary Artery Disease, Sudden Cardiac and Hypertension Social History Does patient currently use any type of tobacco product: No Have you used tobacco products in the last 12 months: No Type of Tobacco Use: None Does any household member use tobacco: No Alcohol Use: None Do you use any recreational Drugs:: No Lives With: Family Lives Where: Home Infectious screening In the last 2 months have you had wt loss of >10#?: NO Have you had fever, night sweats or hemotysis?: No Have you traveled outside the country in the last 6 months?: No Isolation: Droplet ROS Review of Systems Constitutional: See HPI, Diaphoresis, Fever, Weakness and Fatigue Eyes: No Symptoms Reported and See HPI; negative Blurred Vision and Diplopia ENTM: No Symptoms Reported and See HPI; negative Ear Pain, Nose Discharge, Nose Congestion and Throat Pain Respiratoy: See HPI and Short of Breath; negative Productive Cough and Wheezing Cardiovascular: See HPI, Chest Pain and Palpitations; negative Edema Gastrointestinal/Abdominal: No Symptoms Reported and See HPI; negative Abdominal Pain, Diarrhea, Nausea and Vomiting Genitourinary: No Symptoms Reported and See HPI; negative Dysuria and Hematuria Neurological: See HPI and Weakness; negative Headache and Dizziness Musculoskeletal: No Symptoms Reported and See HPI; negative Back Pain and Muscle Pain Integumentary: No Symptoms Reported and See HPI; negative Change in Color, Rash and Juandice Hematologic/Lymphatic: No Symptoms Reported and See HPI; negative Easy Bruising and Swollen Glands Endocrine: No Symptoms Reported and See HPI; negative Increased Thirst and Increased Urine Psychiatric: No Symptoms Reported and See HPI All Other Systems: Reviewed and Negative PE Vital Signs Vitals: Pulse Rate 101 Respiratory Rate 34 Blood Pressure [Left Calf] 158/69 Blood Pressure 148/91 O2 Sat by Pulse Oximetry 98 General Limitations: No Limitations General Appearance: Alert and In No Apparent Distress Head Head Exam: Normal Inspection and Atraumatic Eyes Eye exam: Normal Appearance, PERRL and EOMI; negative Scleral Icterus and Conjunctival Injection ENT ENT Exam: Normal Exam, Normal Oropharynx, Normal External Ear Exam and TM's Normal Bilaterally External Ear Exam: Normal External Inspection; negative Mastoid Tenderness TM/Canal Exam: Bilateral: Normal Nose Exam: Normal Nose Exam; negative Sinus Tenderness Mouth Exam: Normal Inspection; negative Lip Swelling and Tongue Swelling Throat Exam: Normal Inspection; negative Tonsillar Erythema, Tonsillomegaly and Tonsillar Exudate Neck Neck Exam: Normal Inspection and Trachea Midline; negative Tenderness and Lymphadenopathy Chest Chest Inspection: Normal Inspection and Symmetric Chest Wall Rise; negative Tenderness Respiratory Respiratory Exam: Normal Lung Sounds Bilat; negative Accessory Muscle Use and Chest Wall Tenderness Respiratory Exam: Bilateral: Clear to Auscultation Cardiovascular Cardiovascular Exam: Tachycardia and Irregular Rhythm Abdominal Exam Abdominal Exam: Normal Inspection, Normal Bowel Sounds and Soft; negative Tenderness Extremities Extremities Exam: Normal Inspection and Normal Capillary Refill; negative Tende rness, Edema and Calf Tenderness Back Back Exam: Normal Inspection; negative (R) CVA Tenderness and (L) CVA Tenderness Neurologic Neurological Exam: Alert and Oriented X3; negative Motor Sensory Deficit Psychiatric Psychiatric Exam: Normal Affect and Anxious Skin Skin Exam: Dry MDM Differential Diagnosis Differential Diagnosis: CHEST PAIN, A FIB WITH RVR, CHF, RESP DISTRESS, PNE UMONIA, UTI COURSE Treatment Treatment: SEE ORDERS. CARDIOZEM 10MG IV FOLLOW WITH CARDIOZEM DRIP PER PROTOCOL. HR DECREASING. BP LOW. NS 300MG IV BOLUS. BP IMPROVING. LEUKOCYTOSIS, ROCEPHIN 1GM IVPB AFTER BLOOD CULTURE. URINALYSIS PENDING. CRITCAL CARE TIME FOR PATIENT 25 MINUTES. Consultation Consultation Comments: DISCUSSED PATIENT WITH DR. GALLAGHER, SHE WILL ADMIT ABDIRAHMAN [place] Education/Counseling Education/Counseling: Patient Educated On: Diagnosis ROR Labs Reviewed Result Diagrams: 03/10/20 09:41 03/10/20 09:41 Laboratory: WBC 18.6 X10^3/uL (3.6-10.0) H 03/10/20 09:41 RBC 4.89 X10^6/uL (3.5-5.4) 03/10/20 09:41 Hgb 15.2 g/dL (12.0-16.0) 03/10/20 09:41 Hct 44.4 % (36.0-47.0) 03/10/20 09:41 MCV 90.8 fL (80.0-100.0) 03/10/20 09:41 MCH 31.1 pg (27.0-34.0) 03/10/20 09:41 MCHC 34.2 g/dL (33.0-35.0) 03/10/20 09:41 RDW 14.9 % (11.6-16.5) 03/10/20 09:41 Plt Count 293 X10^3/uL (150.0-450.0) 03/10/20 09:41 MPV 6.8 fL (7.4-11.0) L 03/10/20 09:41 Neut % (Auto) 87.8 % (42.0-75.0) H 03/10/20 09:41 Lymph % (Auto) 1.9 % (21.0-51.0) L 03/10/20 09:41 [place] % (Auto) 9.5 % (0.0-13.0) 03/10/20 09:41 Eos % (Auto) 0.5 % (0.9-2.9) L 03/10/20 09:41 Baso % (Auto) 0.3 % (0.2-1.0) 03/10/20 09:41 Neut # (Auto) 16.4 x10^3/uL (2.2-4.8) H 03/10/20 09:41 Lymph # (Auto) 0.4 X10^3/uL (1.3-2.9) L 03/10/20 09:41 [place] # (Auto) 1.8 x10^3/uL (0.3-0.8) H 03/10/20 09:41 Eos # (Auto) 0.1 x10^3/uL (0.0-0.2) 03/10/20 09:41 Baso # (Auto) 0.1 X10^3/uL (0.0-0.1) 03/10/20 09:41 Absolute Nucleated RBC 0.0 /100WBC 03/10/20 09:41 Sodium 131 mmol/L (136-145) L 03/10/20 09:41 Corrected Sodium 132 mmol/L (136-145) L 03/10/20 09:41 Potassium 4.6 mmol/L (3.5-5.1) 03/10/20 09:41 Chloride 97 mmol/L (98-107) L 03/10/20 09:41 Carbon Dioxide 24.4 mmol/L (21-32) 03/10/20 09:41 BUN 14 mg/dL (7-18) 03/10/20 09:41 Creatinine 1.00 mg/dL (0.55-1.02) 03/10/20 09:41 Est GFR (MDRD) Af Amer > 60 (>60) 03/10/20 09:41 Est GFR (MDRD) Non-Af 56 (>60) L 03/10/20 09:41 Glucose 148 mg/dL (65-99) H 03/10/20 09:41 POC Glucose (mg/dL) 154 mg/dL (65-99) H 03/10/20 09:57 Lactic Acid 1.2 mmol/L (0.4-2.0) 03/10/20 09:41 Calcium 9.6 mg/dL (8.5-10.1) 03/10/20 09:41 Corrected Calcium TNP 03/10/20 09:41 Total Bilirubin 0.90 mg/dL (0.2-1.0) 03/10/20 09:41 AST 29 Units/L (15-37) 03/10/20 09:41 ALT 23 Units/L (12-78) 03/10/20 09:41 Alkaline Phosphatase 113 Units/L (46-116) 03/10/20 09:41 Creatine Kinase 22 Units/L (26-192) L 03/10/20 09:41 CK-MB (CK-2) < 1.0 ng/mL (0-4.0) 03/10/20 09:41 CK/CKMB % Calc 4.6 % (<4) 03/10/20 09:41 Troponin I < 0.02 ng/mL (0-1.5) 03/10/20 09:41 B-Natriuretic Peptide 1490 pg/mL (0-79) H* 03/10/20 09:41 Total Protein 7.2 g/dL (6.4-8.2) 03/10/20 09:41 Albumin 3.5 g/dL (3.4-5.0) 03/10/20 09:41 Globulin 3.7 g/dL (2.5-4.5) 03/10/20 09:41 Albumin/Globulin Ratio 0.9 Ratio (1.1-2.1) L 03/10/20 09:41 SARS-CoV-2 (PCR) Negative (NEGATIVE) 03/10/20 10:25 XRAY XRAY Interpreted by: Radiologist (REPORT NOTED AND DISCUSSED WITH PATIENT.) and Self (NO ACUTE INFILTRATE.) EKG Rate: 146 [place]: Normal Rhythm: Afib (WITH RVR) Block: None Hypertrophy: LVH ST: Nonsp (ST DEPRSSION/RATE RELATED.) Opioid Opioid Risk Tool Age (Marcos box if 16-45): No History of Preadolescent Sexual Abuse: No Total: 0 Total Score Risk Category: Low Risk Copyright: Tadeo CHAHAL predicting aberrant behaviors Diagnosis Discharge Problem: Atrial fibrillation with RVR CHF (congestive heart failure) Qualifiers: Heart failure type: combined systolic and diastolic Heart failure chronicity: acute on chronic Qualified Code(s): I50.43 - Acute on chronic combined systolic (congestive) and diastolic (congestive) heart failure Leukocytosis Qualifiers: Leukocytosis type: unspecified Qualified Code(s): D72.829 - Elevated white blood cell count, unspecified UTI (urinary tract infection) Qualifiers: Urinary tract infection type: site unspecified Hematuria presence: with hematuria Qualified Code(s): N39.0 - Urinary tract infection, site not specified Instructions Forms: Excuse From Work Precautions for COVID19 Patient Portal Social Distancing
[2020-03-10] MEDS ORDERED: CARDIZEM INJ 50 MG VIAL IVP ONE (09:47)
[2020-03-10] MEDS ORDERED: CARDIZEM INJ 50 MG VIAL ONE (09:48)
[2020-03-10] MEDS ORDERED: NS 1000 ML 1,000 ML ONE (09:56)
[2020-03-10] MEDS ORDERED: NS 100 ML IV 100 ML IV ONE ×3 (10:00→18:31)
[2020-03-10] MEDS ORDERED: CARDIZEM INJ 125 MG VIAL ONE ×2 (10:02→18:30)
[2020-03-10] MEDS ORDERED: NS 1000 ML 1,000 ML IV ONE (10:02)
[2020-03-10 10:03] LABS: BASOPHILS # (AUTO) 0.1 X10^3/uL (0.0-0.1); BASOPHILS % (AUTO) 0.3 % (0.2-1.0); EOSINOPHILS # (AUTO) 0.1 x10^3/uL (0.0-0.2); EOSINOPHILS % (AUTO) 0.5 % (0.9-2.9); HEMATOCRIT 44.4 % (36.0-47.0); HEMOGLOBIN 15.2 g/dL (12.0-16.0); LYMPHOCYTES # (AUTO) 0.4 X10^3/uL (1.3-2.9); LYMPHOCYTES % (AUTO) 1.9 % (21.0-51.0); MEAN CORPUSCULAR HEMOGLOBIN 31.1 pg (27.0-34.0); MEAN CORPUSCULAR HGB CONC 34.2 g/dL (33.0-35.0); MEAN CORPUSCULAR VOLUME 90.8 fL (80.0-100.0); MEAN PLATELET VOLUME 6.8 fL (7.4-11.0); MONOCYTES # (AUTO) 1.8 x10^3/uL (0.3-0.8); MONOCYTES % (AUTO) 9.5 % (0.0-13.0); NEUTROPHILS # (AUTO) 16.4 x10^3/uL (2.2-4.8); NEUTROPHILS % (AUTO) 87.8 % (42.0-75.0); PLATELET COUNT 293 X10^3/uL (150.0-450.0); RED BLOOD COUNT 4.89 X10^6/uL (3.5-5.4); RED CELL DISTRIBUTION WIDTH 14.9 % (11.6-16.5); WHITE BLOOD COUNT 18.6 X10^3/uL (3.6-10.0)
[2020-03-10] MEDS: CARDIZEM INJ 125 MG VIAL 125 MG in NS 100 ML IV 100 ML IV PRN ×2 (10:08→18:36)
[2020-03-10 10:17] LABS: LACTIC ACID 1.2 mmol/L (0.4-2.0)
[2020-03-10 10:19] LABS: BLOOD UREA NITROGEN 14 mg/dL (7-18); CALCIUM 9.6 mg/dL (8.5-10.1); CARBON DIOXIDE 24.4 mmol/L (21-32); CHLORIDE 97 mmol/L (98-107); COR NA(FOR HYPERGLY) 132 mmol/L (136-145); SODIUM 131 mmol/L (136-145); TROPONIN I < 0.02 ng/mL (0-1.5); eGFR NON BLACK RACES 56 (>60)
--- NOTE | 2020-03-10 10:21 | RAD ---
HISTORYSOBSTUDYCHEST, 1 VIEWCOMPARISONMay 2019FINDINGSThe patient is rotated. The cardiac silhouette is unremarkable . The lungs are relatively clear without focal infiltrate or effusion. The bony thorax is unremarkable.IMPRESSIONNo acute cardiopulmonary disease.Electronically signed by: OLEG WOLFE (Mar 10, 2020 10:19:03)
[2020-03-10] MEDS ORDERED: ZOSYN VIAL 3.375 GRAMS 3.375 G in NS 100 ML IV + SPIKE MINIBAG* 100 ML IV ONE (10:22)
[2020-03-10 10:23] LABS: ALANINE AMINOTRANSFERASE 23 Units/L (12-78); ALBUMIN 3.5 g/dL (3.4-5.0); ALKALINE PHOSPHATASE 113 Units/L (46-116); ASPARTATE AMINO TRANSFERASE 29 Units/L (15-37); CKMB % 4.6 % (<4); CREATINE KINASE 22 Units/L (26-192); CREATINE KINASE MB < 1.0 ng/mL (0-4.0); TOTAL PROTEIN 7.2 g/dL (6.4-8.2)
[2020-03-10] MEDS ORDERED: ROCEPHIN VIAL 1 GRAM 1 G in NS 100 ML IV + SPIKE MINIBAG* 100 ML IV ONE (10:55)
[2020-03-10] MEDS ORDERED: LASIX ONE (11:22)
[2020-03-10] MEDS ORDERED: ROCEPHIN VIAL 1 GRAM ONE (11:24)
[2020-03-10] MEDS ORDERED: NS 250 ML IV 250 ML IV ONE (11:26)
[2020-03-10] MEDS ORDERED: LASIX IVP ONE (11:44)
[2020-03-10 12:30] LABS: BILIRUBIN,URINE NEGATIVE (NEGATIVE); BLOOD/HEMOGLOBIN,URINE 5+ (NEGATIVE); GLUCOSE, URINE NEGATIVE (NEGATIVE); KETONES,URINE NEGATIVE (NEGATIVE); LEUKOCYTE ESTERASE ,URINE 3+ (NEGATIVE); NITRITES,URINE NEGATIVE (NEGATIVE); PH,URINE 6.5 (5.0 - 8.0); PROTEIN,URINE 4+ (NEGATIVE); UROBILINOGEN,URINE NORMAL (NORMAL)
[2020-03-10 12:38] LABS: COLOR,URINE DARK YELLOW (YELLOW)
[2020-03-10 12:39] LABS: APPEARANCE,URINE CLOUDY (CLEAR); BACTERIA,URINE 1+ /HPF (NEGATIVE); HYALINE CASTS, URINE RARE /LPF (NEGATIVE); SQUAMOUS EPITHELIAL CELL,UR NEGATIVE /HPF (NEGATIVE)
[2020-03-10] MEDS ORDERED: ULTRAM PO PRN (13:36)
[2020-03-10] MEDS ORDERED: PHENERGAN INJ 25 MG IM PRN (13:36)
[2020-03-10] MEDS ORDERED: CATAPRES-TTS-3 TD SCH ×2 (13:36→18:00)
[2020-03-10] MEDS: ROCEPHIN VIAL 1 GRAM 1 G in NS 100 ML IV + SPIKE MINIBAG* 100 ML IV SCH (13:50)
[2020-03-10] MEDS: HEMOCYTE-PLUS PO SCH (14:58)
[2020-03-10] MEDS: PROTONIX TAB 40 MG PO SCH (14:58)
[2020-03-10 16:03] VITALS: BMI 21.4
[2020-03-10 16:27] LABS: CKMB % 7.1 % (<4); CREATINE KINASE 14 Units/L (26-192); CREATINE KINASE MB < 1.0 ng/mL (0-4.0); TROPONIN I < 0.02 ng/mL (0-1.5)
[2020-03-10] MEDS: ARTIFICIAL TEARS DROPS OP SCH ×2 (16:29→23:04)
[2020-03-10] MEDS ORDERED: PHARMACY CONSULT LTC MEDICATIONS XX SCH (17:00)
[2020-03-10] MEDS: HumuLIN R SUBCUT PRN ×2 (17:09→21:41)
[2020-03-10] MEDS ORDERED: CATAPRES-TTS-3 TD ONE (17:53)
[2020-03-10] MEDS ORDERED: TYLENOL 325 MG TAB PO PRN (20:05)
[2020-03-10] MEDS ORDERED: ZESTRIL TAB 20 MG ONE (20:15)
[2020-03-10] MEDS: CHECK PATCH XX SCH (21:00)
[2020-03-10] MEDS: SNACK - Diabetic Appropriate PO SCH (21:00)
[2020-03-10] MEDS: VITAMIN C PO SCH (21:39)
[2020-03-10] MEDS: COLACE CAP 100 MG PO SCH (21:39)
[2020-03-10] MEDS: ZESTRIL TAB 20 MG PO SCH (21:39)
[2020-03-10] MEDS: ELIQUIS PO SCH (21:39)
[2020-03-10] MEDS: MYLICON TAB 80 MG CHEW PO SCH (21:39)
[2020-03-10] MEDS: NUT TX GLUC INTOL LAC FREE SOY PO SCH (22:00)
[2020-03-10 22:42] LABS: CKMB % 7.1 % (<4); CREATINE KINASE 14 Units/L (26-192); CREATINE KINASE MB < 1.0 ng/mL (0-4.0); TROPONIN I < 0.02 ng/mL (0-1.5)
[2020-03-10] MEDS: TRAVATAN Z EACHEYE SCH (23:03)
[2020-03-10] MEDS: NS 1000 ML 1,000 ML IV SCH (23:54)
[2020-03-11] MEDS: ARTIFICIAL TEARS DROPS OP SCH ×3 (05:37→21:09)
[2020-03-11 05:44] LABS: BASOPHILS # (AUTO) 0.1 X10^3/uL (0.0-0.1); BASOPHILS % (AUTO) 0.3 % (0.2-1.0); EOSINOPHILS # (AUTO) 0.1 x10^3/uL (0.0-0.2); EOSINOPHILS % (AUTO) 0.3 % (0.9-2.9); HEMATOCRIT 38.6 % (36.0-47.0); LYMPHOCYTES # (AUTO) 1.2 X10^3/uL (1.3-2.9); LYMPHOCYTES % (AUTO) 6.1 % (21.0-51.0); MEAN CORPUSCULAR HEMOGLOBIN 31.3 pg (27.0-34.0); MEAN CORPUSCULAR HGB CONC 34.2 g/dL (33.0-35.0); MEAN CORPUSCULAR VOLUME 91.6 fL (80.0-100.0); MEAN PLATELET VOLUME 7.7 fL (7.4-11.0); MONOCYTES # (AUTO) 1.9 x10^3/uL (0.3-0.8); NEUTROPHILS # (AUTO) 16.3 x10^3/uL (2.2-4.8); NEUTROPHILS % (AUTO) 83.3 % (42.0-75.0); PLATELET COUNT 240 X10^3/uL (150.0-450.0); RED BLOOD COUNT 4.21 X10^6/uL (3.5-5.4); RED CELL DISTRIBUTION WIDTH 15.1 % (11.6-16.5); WHITE BLOOD COUNT 19.5 X10^3/uL (3.6-10.0)
[2020-03-11 05:54] LABS: HEMOGLOBIN 13.2 g/dL (12.0-16.0)
[2020-03-11] MEDS: CARDIZEM INJ 125 MG VIAL 125 MG in NS 100 ML IV 100 ML IV PRN ×2 (06:09→18:17)
[2020-03-11 06:10] LABS: ALANINE AMINOTRANSFERASE 18 Units/L (12-78); ALBUMIN 2.9 g/dL (3.4-5.0); ALKALINE PHOSPHATASE 91 Units/L (46-116); ASPARTATE AMINO TRANSFERASE 16 Units/L (15-37); BLOOD UREA NITROGEN 28 mg/dL (7-18); CARBON DIOXIDE 23.8 mmol/L (21-32); CHLORIDE 99 mmol/L (98-107); CHOL/HDL RATIO 2.4 (0.0-5.0); CHOLESTEROL 90 mg/dL (0-200); COR CA(FOR HYPOALB) 9.9 mg/dL (8.5-10.1); CREATININE 1.35 mg/dL (0.55-1.02); HDL CHOLESTEROL 37 mg/dL (40-60); MAGNESIUM 1.8 mg/dL (1.7-2.9); SODIUM 132 mmol/L (136-145); TOTAL PROTEIN 6.4 g/dL (6.4-8.2); TRIGLYCERIDES 76 mg/dL (0-150); eGFR NON BLACK RACES 40 (>60)
[2020-03-11] MEDS ORDERED: ZESTRIL TAB 20 MG ONE ×2 (08:36→19:24)
[2020-03-11] MEDS: ROCEPHIN VIAL 1 GRAM 1 G in NS 100 ML IV + SPIKE MINIBAG* 100 ML IV SCH (08:51)
[2020-03-11] MEDS: ELIQUIS PO SCH ×2 (08:52→21:06)
[2020-03-11] MEDS: QUESTRAN POWDER FOR ORAL SUSP PO SCH (08:52)
[2020-03-11] MEDS: JANUVIA PO SCH (08:53)
[2020-03-11] MEDS: PROTONIX TAB 40 MG PO SCH (08:53)
[2020-03-11] MEDS: HEMOCYTE-PLUS PO SCH (08:53)
[2020-03-11] MEDS: COLACE CAP 100 MG PO SCH ×2 (08:53→21:06)
[2020-03-11] MEDS: TOPROL XL PO SCH (08:54)
[2020-03-11] MEDS: LIPITOR TAB 20 MG PO SCH (08:54)
[2020-03-11] MEDS: K-DUR TAB 20 MEQ PO SCH (08:54)
[2020-03-11] MEDS: TAB-A-VITE PO SCH (08:54)
[2020-03-11] MEDS: VITAMIN C PO SCH ×2 (08:54→21:11)
[2020-03-11] MEDS: LEVEMIR SC SCH (08:55)
[2020-03-11] MEDS: NITRODUR PATCH 0.4 MG/HR TD SCH (08:55)
[2020-03-11] MEDS: MYLICON TAB 80 MG CHEW PO SCH ×2 (08:55→21:05)
[2020-03-11] MEDS: CITRACAL + VITAMIN D PO SCH (08:55)
[2020-03-11] MEDS: ZESTRIL TAB 20 MG PO SCH ×2 (08:56→21:07)
[2020-03-11] MEDS: NUT TX GLUC INTOL LAC FREE SOY PO SCH ×2 (10:31→21:09)
[2020-03-11] MEDS: CHECK PATCH XX SCH ×2 (10:31→21:03)
[2020-03-11] MEDS ORDERED: NS 100 ML IV 100 ML IV ONE ×2 (10:37→13:31)
[2020-03-11] MEDS: LEVAQUIN PREMIX IV 500 MG 500 MG/100 ML BAG IV SCH (11:05)
[2020-03-11] MEDS: HumuLIN R SUBCUT PRN ×2 (12:58→21:08)
[2020-03-11] MEDS: FORTAZ or TAZICEF VIAL INJ IVP SCH ×2 (13:40→13:53)
[2020-03-11] MEDS: SNACK - Diabetic Appropriate PO SCH (20:00)
[2020-03-11] MEDS: TRAVATAN Z EACHEYE SCH (21:04)
[2020-03-11] MEDS: FORTAZ or TAZICEF VIAL INJ 1 G in NS 100 ML IV 100 ML IV SCH (21:07)
--- NOTE | 2020-03-11 23:48 | DR.UPDATE ---
H&P Update History and Physical Update: History and Physical reviewed and patient examined. Changes noted: Yes with the following: WAS RECENTLY DISCHARGED FROM THE HOSPITAL AFTER BEING TREATED FOR ACUTE RENAL FAILURE, BRADYCARDIA, AND DEHYDRATION. HER VERAPAMIL WAS DISCONTINUED AT THAT TIME AND SHE WAS STARTED ON METOPROLOL 25MG PO DAILY. SHE RETURNED TO THE ER WITH COMPLAINTS OF DIAPHORESIS, LEFT SIDED CHEST PAIN, FEVER, AND RAPID HEART RATE. PAIN IS DESCRIBED SHARP, INTERMITTENT, AND IS RATED 4/10. SYMPTOMS STARTED UPON AWAKENING THIS MORNING. SHE WAS SWABBED FOR COVID-19 ON HER LAST VISIT AND WAS NEGATIVE. ON ARRIVAL TO THE ER TODAY, VITALS WERE 99.0-149-24-95%NC-139/82. LABS WERE OBTAINED. ABNORMAL LAB VALUES INCLUDE THE FOLLOWING: WBC 18.6, INR 1.50, PTT 42.6, SODIUM 131, CHLORIDE 97, GLUCOSE 148, CREATINE KINASE 22, BNP 1490. URINALYSIS REVEALED: WBC TNTC, RBC 3-5, LEUKOCYTES 3+, BACTERIA 1+, OCCULT BLOOD 5+, PROTEIN 4+. BLOOD AND URINE CULTURES WERE SET UP. AN EKG WAS OBTAINED AND REVEALED: ATRIAL FIBRILLATION WITH RVR. HR 146. CHEST XRAY REVEALED: NO ACUTE CARDIOPULMONARY DISEASE. SHE WAS GIVEN LASIX 20MG IV X 1 DOSE, A NORMAL SALINE BOLUS, CARDIZEM 10MG IV BOLUS, AND ROCEPHIN 1G IV X 1 DOSE. SHE WAS ADMITTED FOR FURTHER EVALUATION AND TREATMENT OF A-FIB WITH RVR, CHF, URINARY TRACT INFECTION, AND LEUKOCYTOSIS. WE STARTED NORMAL SALINE AT [facility], A CARDIEM DRIP, ROCEPHIN 1G IV DAILY, HUMULIN R SLIDING SCALE, AND HOME MEDICATIONS WERE RESUMED. OTHERWISE, WE PLAN TO FOLLOW UP WITH AM LABS AND CONTINUE TO MONITOR. Prescription drug monitoring program results: PDMP reviewed and no concerns identified H&P Reviewed: Yes Patient was examined?: Yes
[2020-03-12] MEDS: NS 1000 ML 1,000 ML IV SCH ×2 (05:37→15:43)
[2020-03-12] MEDS: FORTAZ or TAZICEF VIAL INJ 1 G in NS 100 ML IV 100 ML IV SCH (05:38)
[2020-03-12] MEDS: ARTIFICIAL TEARS DROPS OP SCH ×3 (05:38→21:46)
[2020-03-12 06:13] LABS: BASOPHILS % (AUTO) 0.2 % (0.2-1.0); EOSINOPHILS # (AUTO) 0.1 x10^3/uL (0.0-0.2); EOSINOPHILS % (AUTO) 0.6 % (0.9-2.9); HEMATOCRIT 29.1 % (36.0-47.0); HEMOGLOBIN 10.2 g/dL (12.0-16.0); LYMPHOCYTES # (AUTO) 0.9 X10^3/uL (1.3-2.9); LYMPHOCYTES % (AUTO) 7.1 % (21.0-51.0); MEAN CORPUSCULAR HEMOGLOBIN 31.6 pg (27.0-34.0); MEAN CORPUSCULAR VOLUME 90.3 fL (80.0-100.0); MEAN PLATELET VOLUME 7.4 fL (7.4-11.0); MONOCYTES # (AUTO) 1.5 x10^3/uL (0.3-0.8); MONOCYTES % (AUTO) 12.4 % (0.0-13.0); NEUTROPHILS # (AUTO) 9.8 x10^3/uL (2.2-4.8); NEUTROPHILS % (AUTO) 79.7 % (42.0-75.0); PLATELET COUNT 155 X10^3/uL (150.0-450.0); RED BLOOD COUNT 3.22 X10^6/uL (3.5-5.4); RED CELL DISTRIBUTION WIDTH 14.8 % (11.6-16.5); WHITE BLOOD COUNT 12.2 X10^3/uL (3.6-10.0)
[2020-03-12 06:29] LABS: ALANINE AMINOTRANSFERASE 13 Units/L (12-78); ALBUMIN 2.3 g/dL (3.4-5.0); ALKALINE PHOSPHATASE 70 Units/L (46-116); ASPARTATE AMINO TRANSFERASE 14 Units/L (15-37); BLOOD UREA NITROGEN 43 mg/dL (7-18); CARBON DIOXIDE 23.9 mmol/L (21-32); CHLORIDE 94 mmol/L (98-107); COR CA(FOR HYPOALB) 9.4 mg/dL (8.5-10.1); CREATININE 1.81 mg/dL (0.55-1.02); TOTAL PROTEIN 5.5 g/dL (6.4-8.2); eGFR NON BLACK RACES 28 (>60)
[2020-03-12 06:39] LABS: SODIUM 123 mmol/L (136-145)
[2020-03-12] MEDS ORDERED: ZESTRIL TAB 20 MG ONE ×2 (08:06→19:14)
[2020-03-12] MEDS: LEVAQUIN PREMIX IV 500 MG 500 MG/100 ML BAG IV SCH (08:37)
[2020-03-12] MEDS: PROTONIX TAB 40 MG PO SCH (08:38)
[2020-03-12] MEDS: MYLICON TAB 80 MG CHEW PO SCH ×2 (08:38→20:34)
[2020-03-12] MEDS: JANUVIA PO SCH (08:39)
[2020-03-12] MEDS: CITRACAL + VITAMIN D PO SCH (08:39)
[2020-03-12] MEDS: TAB-A-VITE PO SCH (08:39)
[2020-03-12] MEDS: ELIQUIS PO SCH ×2 (08:40→20:34)
[2020-03-12] MEDS: TOPROL XL PO SCH (08:40)
[2020-03-12] MEDS: COLACE CAP 100 MG PO SCH ×2 (08:40→20:34)
[2020-03-12] MEDS: ZESTRIL TAB 20 MG PO SCH ×2 (08:40→20:36)
[2020-03-12] MEDS: HEMOCYTE-PLUS PO SCH (08:40)
[2020-03-12] MEDS: VITAMIN C PO SCH ×2 (08:41→20:38)
[2020-03-12] MEDS: LIPITOR TAB 20 MG PO SCH (08:41)
[2020-03-12] MEDS: K-DUR TAB 20 MEQ PO SCH (08:41)
[2020-03-12] MEDS: QUESTRAN POWDER FOR ORAL SUSP PO SCH (08:42)
[2020-03-12] MEDS: LEVEMIR SC SCH (08:45)
[2020-03-12] MEDS: NITRODUR PATCH 0.4 MG/HR TD SCH (08:45)
[2020-03-12] MEDS: CHECK PATCH XX SCH ×2 (08:50→20:33)
[2020-03-12] MEDS: NUT TX GLUC INTOL LAC FREE SOY PO SCH ×2 (08:50→20:34)
[2020-03-12] MEDS ORDERED: CATAPRES-TTS-3 TD SCH (09:00)
[2020-03-12] MEDS: SNACK - Diabetic Appropriate PO SCH (20:32)
[2020-03-12] MEDS: TRAVATAN Z EACHEYE SCH (20:35)
[2020-03-12] MEDS: MIRALAX POWDER (1 DOSE 17 G) PO PRN (20:39)
--- NOTE | 2020-03-12 20:55 | PCM.PROG ---
Progress Note - Progress Note for Day of Date of Exam: 03/11/20 - Subjective Subjective: IS BEING TREATED FOR A-FIB WITH RVR, CHF, UTI, AND LEUKOCYTOSIS. TODAY, SHE IS ALERT AND ORIENTED, LYING IN BED ON MORNING ROUNDS. SHE REPORTS LOWER ABDOMINAL PAIN THIS MORNING. SHE CONTINUES WITH GENERALIZED WEAKNESS. ON EXAMINATION, HEART IS REGULAR IN RATE AND RHYTHM. BILATERAL LUNGS ARE NOTED WITH DIMINISHED LUNG SOUNDS THROUGHOUT. ABDOMEN IS ROUND, SOFT, AND NOTED WITH SUPRAPUBIC TENDERNESS. NORMAL BOWEL SOUNDS ARE NOTED IN ALL QUADRANTS. HER VITALS THIS MORNING ARE: 99.2-80-24-97%NC-133/59. LABS WERE OBTAINED. ABNORMAL LAB VALUES INCLUDE THE FOLLOWING: WBC 19.5, INR 1.50, PTT 42.6, SODIUM 132, BUN 28, CREATININE 1.35, ALBUMIN 2.9. BLOOD AND URINE CULTURES ARE PENDING. SHE IS CURRENTLY RECEIVING NORMAL SALINE AT [facility], A CARDIEM DRIP, ROCEPHIN 1G IV DAILY, HUMULIN R SLIDING SCALE, AND HOME MEDICATIONS WERE RESUMED. TODAY, WE WILL DISCONTINUE THE ROCEPHIN AND START FORTAZ 1G IV DAILY AND LEVAQUIN 500MG IV Q48H. OTHERWISE, WE PLAN TO FOLLOW UP WITH AM LABS AND CONTINUE TO MONITOR. - Past Medical Family Social History Past Med/Fam/Surg Hx: No changes since H&P Allergies: Allergies tuberculin,PPD,multi-puncture Allergy (Verified 03/10/20 13:33) - Review of Systems ROS: No change since H&P - Vital Signs and I&O's Vital Signs: Temperature 99.4 F Pulse Rate [Left Brachial] 81 Pulse Rate 85 Respiratory Rate 24 Blood Pressure [Left Arm] 150/67 Blood Pressure [Left Calf] 158/69 Blood Pressure 147/90 O2 Sat by Pulse Oximetry 99 Intake and Output: Intake & Output 03/10/20 03/11/20 03/12/20 03/13/20 11:59 11:59 11:59 11:59 Intake Total 1070 / 1070 2351 / 2351 1320 / 1320 Output Total 500 / 500 300 / 300 750 / 750 Balance 570 / 570 2050 / 2050 570 / 570 - Physical Exam Oriented: Normal Eyes: Normal Ear: Normal Nose: Normal Throat: Normal Respiratory: Generalized, Diminished Cardiovascular: Normal : Normal Auscultation: Bowel Sounds: Normal Palpation: Normal Tenderness: Suprapubic, Mild. negative: Rebound, Guarding, Rigidity Skin: Normal Musculoskeletal: Normal Psychiatric: Normal Mood Description: Calm Affect: Normal Speech Pattern: Clear, Appropriate - Laboratory and Diagnostics Result Diagrams: 03/12/20 05:39 03/12/20 05:39 Labs: 03/10/20 09:41 Blood Blood Culture - Preliminary 03/10/20 09:41 Blood Blood Culture - Preliminary 03/10/20 12:25 Urine,Catheterized Urine Culture - Preliminary Laboratory WBC 12.2 X10^3/uL (3.6-10.0) H 03/12/20 05:39 RBC 3.22 X10^6/uL (3.5-5.4) L 03/12/20 05:39 Hgb 10.2 g/dL (12.0-16.0) L D 03/12/20 05:39 Hct 29.1 % (36.0-47.0) L 03/12/20 05:39 MCV 90.3 fL (80.0-100.0) 03/12/20 05:39 MCH 31.6 pg (27.0-34.0) 03/12/20 05:39 MCHC 35.0 g/dL (33.0-35.0) 03/12/20 05:39 RDW 14.8 % (11.6-16.5) 03/12/20 05:39 Plt Count 155 X10^3/uL (150.0-450.0) 03/12/20 05:39 MPV 7.4 fL (7.4-11.0) 03/12/20 05:39 Neut % (Auto) 79.7 % (42.0-75.0) H 03/12/20 05:39 Lymph % (Auto) 7.1 % (21.0-51.0) L 03/12/20 05:39 [place] % (Auto) 12.4 % (0.0-13.0) 03/12/20 05:39 Eos % (Auto) 0.6 % (0.9-2.9) L 03/12/20 05:39 Baso % (Auto) 0.2 % (0.2-1.0) 03/12/20 05:39 Neut # (Auto) 9.8 x10^3/uL (2.2-4.8) H 03/12/20 05:39 Lymph # (Auto) 0.9 X10^3/uL (1.3-2.9) L 03/12/20 05:39 [place] # (Auto) 1.5 x10^3/uL (0.3-0.8) H 03/12/20 05:39 Eos # (Auto) 0.1 x10^3/uL (0.0-0.2) 03/12/20 05:39 Baso # (Auto) 0.0 X10^3/uL (0.0-0.1) 03/12/20 05:39 Absolute Nucleated RBC 0.0 /100WBC 03/12/20 05:39 PT 17.6 SECONDS (11.8-14.3) 03/11/20 04:07 INR Target Range - 03/11/20 04:07 INR 1.50 (0.8-1.3) H 03/11/20 04:07 APTT 42.6 SECONDS (22.9-36.5) H 03/11/20 04:07 PTT Comment - 03/11/20 04:07 Sodium 123 mmol/L (136-145) L* 03/12/20 05:39 Corrected Sodium TNP 03/12/20 05:39 Potassium 5.3 mmol/L (3.5-5.1) H 03/12/20 05:39 Chloride 94 mmol/L (98-107) L 03/12/20 05:39 Carbon Dioxide 23.9 mmol/L (21-32) 03/12/20 05:39 BUN 43 mg/dL (7-18) H 03/12/20 05:39 Creatinine 1.81 mg/dL (0.55-1.02) H 03/12/20 05:39 Est GFR (MDRD) Af Amer 34 (>60) L 03/12/20 05:39 Est GFR (MDRD) Non-Af 28 (>60) L 03/12/20 05:39 Glucose 104 mg/dL (65-99) H 03/12/20 05:39 POC Glucose (mg/dL) 129 mg/dL (65-99) H 03/12/20 19:43 Lactic Acid 1.2 mmol/L (0.4-2.0) 03/10/20 09:41 Calcium 8.0 mg/dL (8.5-10.1) L 03/12/20 05:39 Corrected Calcium 9.4 mg/dL (8.5-10.1) 03/12/20 05:39 Magnesium 1.8 mg/dL (1.7-2.9) 03/11/20 04:07 Total Bilirubin 0.60 mg/dL (0.2-1.0) 03/12/20 05:39 AST 14 Units/L (15-37) L 03/12/20 05:39 ALT 13 Units/L (12-78) 03/12/20 05:39 Alkaline Phosphatase 70 Units/L (46-116) 03/12/20 05:39 Creatine Kinase 14 Units/L (26-192) L 03/10/20 22:01 CK-MB (CK-2) < 1.0 ng/mL (0-4.0) 03/10/20 22:01 CK/CKMB % Calc 7.1 % (<4) 03/10/20 22:01 Troponin I < 0.02 ng/mL (0-1.5) 03/10/20 22:01 B-Natriuretic Peptide 1490 pg/mL (0-79) H* 03/10/20 09:41 Total Protein 5.5 g/dL (6.4-8.2) L 03/12/20 05:39 Albumin 2.3 g/dL (3.4-5.0) L 03/12/20 05:39 Globulin 3.2 g/dL (2.5-4.5) 03/12/20 05:39 Albumin/Globulin Ratio 0.7 Ratio (1.1-2.1) L 03/12/20 05:39 Triglycerides 76 mg/dL (0-150) 03/11/20 04:07 Cholesterol 90 mg/dL (0-200) 03/11/20 04:07 LDL Cholesterol, Calc 38 mg/dL (0-100) 03/11/20 04:07 HDL Cholesterol 37 mg/dL (40-60) L 03/11/20 04:07 Cholesterol/HDL Ratio 2.4 (0.0-5.0) 03/11/20 04:07 Specimen Type Catherized urine 03/10/20 12:25 Urine Color Dark yellow (YELLOW) 03/10/20 12:25 Urine Appearance Cloudy (CLEAR) 03/10/20 12:25 Urine pH 6.5 (5.0 - 8.0) 03/10/20 12:25 Ur Specific [place] 1.010 (1.000-1.030) 03/10/20 12:25 Urine Protein 4+ (NEGATIVE) 03/10/20 12:25 Urine Glucose (UA) Negative (NEGATIVE) 03/10/20 12:25 Urine Ketones Negative (NEGATIVE) 03/10/20 12:25 Urine Occult Blood 5+ (NEGATIVE) 03/10/20 12:25 Urine Nitrite Negative (NEGATIVE) 03/10/20 12:25 Urine Bilirubin Negative (NEGATIVE) 03/10/20 12:25 Urine Urobilinogen Normal (NORMAL) 03/10/20 12:25 Ur Leukocyte Esterase 3+ (NEGATIVE) 03/10/20 12:25 Urine RBC 3-5 /HPF (0-3) A 03/10/20 12:25 Urine WBC Tntc /HPF (0-5) A 03/10/20 12:25 Ur Squamous Epith Cells Negative /HPF (NEGATIVE) 03/10/20 12:25 Urine Bacteria 1+ /HPF (NEGATIVE) 03/10/20 12:25 Hyaline Casts Rare /LPF (NEGATIVE) 03/10/20 12:25 Ur Culture Indicated? Yes/culture set up 03/10/20 12:25 SARS-CoV-2 (PCR) Negative (NEGATIVE) 03/10/20 10:25 - Plan (1) Atrial fibrillation with RVR Status: Acute Plan: NORMAL SALINE AT [facility], [facility] [address], RESUME HOME MEDS (2) UTI (urinary tract infection) Status: Acute Qualifiers: Urinary tract infection type: site unspecified Hematuria presence: with hematuria Qualified Code(s): N39.0 - Urinary tract infection, site not specified; R31.9 - Hematuria, unspecified Plan: FORTAZ 1G IV DAILY, LEVAQUIN 500MG IV Q48H, CONTINUE TO MONITOR. (3) Hyponatremia Status: Resolved Plan: NORMAL SALINE AT 30 ML/HR, CONTINUE TO MONITOR (4) CHF (congestive heart failure) Status: Acute Qualifiers: Heart failure type: combined systolic and diastolic Heart failure chronicity: acute on chronic Qualified Code(s): I50.43 - Acute on chronic combined systolic (congestive) and diastolic (congestive) heart failure (5) Leukocytosis Status: Acute Qualifiers: Leukocytosis type: unspecified Qualified Code(s): D72.829 - Elevated white blood cell count, unspecified
--- NOTE | 2020-03-12 21:18 | PCM.PROG ---
Progress Note - Progress Note for Day of Date of Exam: 03/12/20 - Subjective Subjective: IS BEING TREATED FOR A-FIB WITH RVR, HYPONATREMIA, CHF, UTI, AND LEUKOCYTOSIS. TODAY, SHE IS ALERT AND ORIENTED, LYING IN BED ON MORNING ROUNDS. SHE CONTINUES WITH GENERALIZED WEAKNESS, BUT REPORTS SLIGHT IMPROVEMENT IN SYMPTOMS SINCE YESTERDAY. ON EXAMINATION, HEART IS REGULAR IN RATE AND RHYTHM. BILATERAL LUNGS ARE NOTED WITH DIMINISHED LUNG SOUNDS THROUGHOUT. ABDOMEN IS ROUND, SOFT, AND NOTED WITH SUPRAPUBIC TENDERNESS. NORMAL BOWEL SOUNDS ARE NOTED IN ALL QUADRANTS. HER VITALS THIS MORNING ARE: 98.9-65-18-96%-125/58. LABS WERE OBTAINED. ABNORMAL LAB VALUES INCLUDE THE FOLL OWING: WBC 12.2, RBC 3.22, HGB 10.2, HCT 29.1, SODIUM 123, POTASSIUM 5.3, CHLORIDE 94, BUN 43, CREATININE 1.81, GLUCOSE 104, CALCIUM 8.0, AST 14, TOTAL PROTEIN 5.5, ALBUMIN 2.3. BLOOD AND URINE CULTURES ARE PENDING. PRELIMINARY URINE CULTURES REPORT GROWTH OF E.COLI. SENSITIVITY IS PENDING. SHE IS CURRENTLY RECEIVING NORMAL SALINE AT [facility], A CARDIEM DRIP, FORTAZ 1G IV DAILY, LEVAQUIN 500MG IV Q48H, HUMULIN R SLIDING SCALE, AND HOME MEDICATIONS WERE RESUMED. TODAY, WE WILL INCREASE HER IV FLUIDS TO 75ML/HR. OTHERWISE, WE PLAN TO FOLLOW UP WITH AM LABS AND CONTINUE TO MONITOR. - Past Medical Family Social History Past Med/Fam/Surg Hx: No changes since H&P Allergies: Allergies tuberculin,PPD,multi-puncture Allergy (Verified 03/10/20 13:33) - Review of Systems ROS: No change since H&P - Vital Signs and I&O's Vital Signs: Temperature 99.4 F Pulse Rate [Left Brachial] 81 Pulse Rate 85 Respiratory Rate 24 Blood Pressure [Left Arm] 150/67 Blood Pressure [Left Calf] 158/69 Blood Pressure 147/90 O2 Sat by Pulse Oximetry 99 Intake and Output: Intake & Output 03/10/20 03/11/20 03/12/20 03/13/20 11:59 11:59 11:59 11:59 Intake Total 1070 / 1070 2351 / 2351 1320 / 1320 Output Total 500 / 500 300 / 300 750 / 750 Balance 570 / 570 205 / 2050 570 / 570 - Physical Exam Oriented: Normal Eyes: Normal Ear: Normal Nose: Normal Throat: Normal Respiratory: Generalized, Diminished Cardiovascular: Normal : Normal Auscultation: Bowel Sounds: Normal Palpation: Normal Tenderness: Suprapubic, Mild. negative: Rebound, Guarding, Rigidity Skin: Normal Musculoskeletal: Normal Psychiatric: Normal Mood Description: Calm Affect: Normal Speech Pattern: Clear, Appropriate - Laboratory and Diagnostics Result Diagrams: 03/12/20 05:39 03/12/20 05:39 Labs: 03/10/20 09:41 Blood Blood Culture - Preliminary 03/10/20 09:41 Blood Blood Culture - Preliminary 03/10/20 12:25 Urine,Catheterized Urine Culture - Preliminary Laboratory WBC 12.2 X10^3/uL (3.6-10.0) H 03/12/20 05:39 RBC 3.22 X10^6/uL (3.5-5.4) L 03/12/20 05:39 Hgb 10.2 g/dL (12.0-16.0) L D 03/12/20 05:39 Hct 29.1 % (36.0-47.0) L 03/12/20 05:39 MCV 90.3 fL (80.0-100.0) 03/12/20 05:39 MCH 31.6 pg (27.0-34.0) 03/12/20 05:39 MCHC 35.0 g/dL (33.0-35.0) 03/12/20 05:39 RDW 14.8 % (11.6-16.5) 03/12/20 05:39 Plt Count 155 X10^3/uL (150.0-450.0) 03/12/20 05:39 MPV 7.4 fL (7.4-11.0) 03/12/20 05:39 Neut % (Auto) 79.7 % (42.0-75.0) H 03/12/20 05:39 Lymph % (Auto) 7.1 % (21.0-51.0) L 03/12/20 05:39 [place] % (Auto) 12.4 % (0.0-13.0) 03/12/20 05:39 Eos % (Auto) 0.6 % (0.9-2.9) L 03/12/20 05:39 Baso % (Auto) 0.2 % (0.2-1.0) 03/12/20 05:39 Neut # (Auto) 9.8 x10^3/uL (2.2-4.8) H 03/12/20 05:39 Lymph # (Auto) 0.9 X10^3/uL (1.3-2.9) L 03/12/20 05:39 [place] # (Auto) 1.5 x10^3/uL (0.3-0.8) H 03/12/20 05:39 Eos # (Auto) 0.1 x10^3/uL (0.0-0.2) 03/12/20 05:39 Baso # (Auto) 0.0 X10^3/uL (0.0-0.1) 03/12/20 05:39 Absolute Nucleated RBC 0.0 /100WBC 03/12/20 05:39 PT 17.6 SECONDS (11.8-14.3) 03/11/20 04:07 INR Target Range - 03/11/20 04:07 INR 1.50 (0.8-1.3) H 03/11/20 04:07 APTT 42.6 SECONDS (22.9-36.5) H 03/11/20 04:07 PTT Comment - 03/11/20 04:07 Sodium 123 mmol/L (136-145) L* 03/12/20 05:39 Corrected Sodium TNP 03/12/20 05:39 Potassium 5.3 mmol/L (3.5-5.1) H 03/12/20 05:39 Chloride 94 mmol/L (98-107) L 03/12/20 05:39 Carbon Dioxide 23.9 mmol/L (21-32) 03/12/20 05:39 BUN 43 mg/dL (7-18) H 03/12/20 05:39 Creatinine 1.81 mg/dL (0.55-1.02) H 03/12/20 05:39 Est GFR (MDRD) Af Amer 34 (>60) L 03/12/20 05:39 Est GFR (MDRD) Non-Af 28 (>60) L 03/12/20 05:39 Glucose 104 mg/dL (65-99) H 03/12/20 05:39 POC Glucose (mg/dL) 129 mg/dL (65-99) H 03/12/20 19:43 Lactic Acid 1.2 mmol/L (0.4-2.0) 03/10/20 09:41 Calcium 8.0 mg/dL (8.5-10.1) L 03/12/20 05:39 Corrected Calcium 9.4 mg/dL (8.5-10.1) 03/12/20 05:39 Magnesium 1.8 mg/dL (1.7-2.9) 03/11/20 04:07 Total Bilirubin 0.60 mg/dL (0.2-1.0) 03/12/20 05:39 AST 14 Units/L (15-37) L 03/12/20 05:39 ALT 13 Units/L (12-78) 03/12/20 05:39 Alkaline Phosphatase 70 Units/L (46-116) 03/12/20 05:39 Creatine Kinase 14 Units/L (26-192) L 03/10/20 22:01 CK-MB (CK-2) < 1.0 ng/mL (0-4.0) 03/10/20 22:01 CK/CKMB % Calc 7.1 % (<4) 03/10/20 22:01 Troponin I < 0.02 ng/mL (0-1.5) 03/10/20 22:01 B-Natriuretic Peptide 1490 pg/mL (0-79) H* 03/10/20 09:41 Total Protein 5.5 g/dL (6.4-8.2) L 03/12/20 05:39 Albumin 2.3 g/dL (3.4-5.0) L 03/12/20 05:39 Globulin 3.2 g/dL (2.5-4.5) 03/12/20 05:39 Albumin/Globulin Ratio 0.7 Ratio (1.1-2.1) L 03/12/20 05:39 Triglycerides 76 mg/dL (0-150) 03/11/20 04:07 Cholesterol 90 mg/dL (0-200) 03/11/20 04:07 LDL Cholesterol, Calc 38 mg/dL (0-100) 03/11/20 04:07 HDL Cholesterol 37 mg/dL (40-60) L 03/11/20 04:07 Cholesterol/HDL Ratio 2.4 (0.0-5.0) 03/11/20 04:07 Specimen Type Catherized urine 03/10/20 12:25 Urine Color Dark yellow (YELLOW) 03/10/20 12:25 Urine Appearance Cloudy (CLEAR) 03/10/20 12:25 Urine pH 6.5 (5.0 - 8.0) 03/10/20 12:25 Ur Specific [place] 1.010 (1.000-1.030) 03/10/20 12:25 Urine Protein 4+ (NEGATIVE) 03/10/20 12:25 Urine Glucose (UA) Negative (NEGATIVE) 03/10/20 12:25 Urine Ketones Negative (NEGATIVE) 03/10/20 12:25 Urine Occult Blood 5+ (NEGATIVE) 03/10/20 12:25 Urine Nitrite Negative (NEGATIVE) 03/10/20 12:25 Urine Bilirubin Negative (NEGATIVE) 03/10/20 12:25 Urine Urobilinogen Normal (NORMAL) 03/10/20 12:25 Ur Leukocyte Esterase 3+ (NEGATIVE) 03/10/20 12:25 Urine RBC 3-5 /HPF (0-3) A 03/10/20 12:25 Urine WBC Tntc /HPF (0-5) A 03/10/20 12:25 Ur Squamous Epith Cells Negative /HPF (NEGATIVE) 03/10/20 12:25 Urine Bacteria 1+ /HPF (NEGATIVE) 03/10/20 12:25 Hyaline Casts Rare /LPF (NEGATIVE) 03/10/20 12:25 Ur Culture Indicated? Yes/culture set up 03/10/20 12:25 SARS-CoV-2 (PCR) Negative (NEGATIVE) 03/10/20 10:25 - Plan (1) Atrial fibrillation with RVR Status: Acute Plan: NORMAL SALINE AT KVO, CARDIZEM DRIP, RESUME HOME MEDS (2) UTI (urinary tract infection) Status: Acute Qualifiers: Urinary tract infection type: site unspecified Hematuria presence: with hematuria Qualified Code(s): N39.0 - Urinary tract infection, site not specified; R31.9 - Hematuria, unspecified Plan: FORTAZ 1G IV DAILY, LEVAQUIN 500MG IV Q48H, CONTINUE TO MONITOR. (3) CHF (congestive heart failure) Status: Acute Qualifiers: Heart failure type: combined systolic and diastolic Heart failure chronicity: acute on chronic Qualified Code(s): I50.43 - Acute on chronic combined systolic (congestive) and diastolic (congestive) heart failure (4) Leukocytosis Status: Acute Qualifiers: Leukocytosis type: unspecified Qualified Code(s): D72.829 - Elevated white blood cell count, unspecified (5) Hyponatremia Status: Resolved Plan: NORMAL SALINE AT 75 ML/HR, CONTINUE TO MONITOR
[2020-03-13] MEDS: NS 1000 ML 1,000 ML IV SCH ×2 (02:42→18:52)
[2020-03-13] MEDS: ARTIFICIAL TEARS DROPS OP SCH ×3 (05:01→23:04)
[2020-03-13 06:24] LABS: BASOPHILS % (AUTO) 0.2 % (0.2-1.0); EOSINOPHILS # (AUTO) 0.1 x10^3/uL (0.0-0.2); EOSINOPHILS % (AUTO) 1.1 % (0.9-2.9); HEMATOCRIT 29.6 % (36.0-47.0); HEMOGLOBIN 10.6 g/dL (12.0-16.0); LYMPHOCYTES # (AUTO) 0.5 X10^3/uL (1.3-2.9); LYMPHOCYTES % (AUTO) 5.2 % (21.0-51.0); MEAN CORPUSCULAR HEMOGLOBIN 31.9 pg (27.0-34.0); MEAN CORPUSCULAR HGB CONC 35.8 g/dL (33.0-35.0); MEAN CORPUSCULAR VOLUME 89.1 fL (80.0-100.0); MEAN PLATELET VOLUME 7.6 fL (7.4-11.0); MONOCYTES # (AUTO) 1.3 x10^3/uL (0.3-0.8); MONOCYTES % (AUTO) 14.4 % (0.0-13.0); NEUTROPHILS # (AUTO) 7.1 x10^3/uL (2.2-4.8); NEUTROPHILS % (AUTO) 79.1 % (42.0-75.0); PLATELET COUNT 158 X10^3/uL (150.0-450.0); RED BLOOD COUNT 3.33 X10^6/uL (3.5-5.4); RED CELL DISTRIBUTION WIDTH 14.6 % (11.6-16.5)
[2020-03-13 06:30] LABS: ALANINE AMINOTRANSFERASE 14 Units/L (12-78); ALBUMIN 2.2 g/dL (3.4-5.0); ALKALINE PHOSPHATASE 102 Units/L (46-116); ASPARTATE AMINO TRANSFERASE 13 Units/L (15-37); BLOOD UREA NITROGEN 27 mg/dL (7-18); CALCIUM 8.7 mg/dL (8.5-10.1); CARBON DIOXIDE 22.5 mmol/L (21-32); CHLORIDE 98 mmol/L (98-107); COR CA(FOR HYPOALB) 10.1 mg/dL (8.5-10.1); SODIUM 128 mmol/L (136-145); TOTAL PROTEIN 5.7 g/dL (6.4-8.2); eGFR NON BLACK RACES 50 (>60)
[2020-03-13] MEDS ORDERED: ZESTRIL TAB 20 MG ONE ×2 (08:16→20:38)
[2020-03-13] MEDS: NITRODUR PATCH 0.4 MG/HR TD SCH (08:58)
[2020-03-13] MEDS: QUESTRAN POWDER FOR ORAL SUSP PO SCH (08:59)
[2020-03-13] MEDS: MIRALAX POWDER (1 DOSE 17 G) PO PRN (08:59)
[2020-03-13] MEDS ORDERED: LEVAQUIN PREMIX IV 250 MG 250 MG/50 ML BAG IV SCH (09:00)
[2020-03-13] MEDS ORDERED: FORTAZ or TAZICEF VIAL INJ 1 G in NS 100 ML IV 100 ML IV SCH (09:00)
[2020-03-13] MEDS: LEVEMIR SC SCH (09:01)
[2020-03-13] MEDS: MYLICON TAB 80 MG CHEW PO SCH ×2 (09:02→20:45)
[2020-03-13] MEDS: TAB-A-VITE PO SCH (09:02)
[2020-03-13] MEDS: JANUVIA PO SCH (09:02)
[2020-03-13] MEDS: PROTONIX TAB 40 MG PO SCH (09:03)
[2020-03-13] MEDS: TOPROL XL PO SCH (09:03)
[2020-03-13] MEDS: K-DUR TAB 20 MEQ PO SCH (09:03)
[2020-03-13] MEDS: ELIQUIS PO SCH ×2 (09:03→20:48)
[2020-03-13] MEDS: LIPITOR TAB 20 MG PO SCH (09:03)
[2020-03-13] MEDS: CHECK PATCH XX SCH ×4 (09:03→20:49)
[2020-03-13] MEDS: CITRACAL + VITAMIN D PO SCH (09:03)
[2020-03-13] MEDS: COLACE CAP 100 MG PO SCH ×2 (09:03→20:46)
[2020-03-13] MEDS: HEMOCYTE-PLUS PO SCH (09:03)
[2020-03-13] MEDS: VITAMIN C PO SCH ×2 (09:04→20:46)
[2020-03-13] MEDS: NUT TX GLUC INTOL LAC FREE SOY PO SCH ×2 (09:04→20:48)
[2020-03-13] MEDS: ZESTRIL TAB 20 MG PO SCH ×2 (09:04→20:46)
[2020-03-13] MEDS: INVANZ INJ 1 GM VIAL 1 GM in NS 100 ML IV + SPIKE MINIBAG* 100 ML IV SCH (10:09)
[2020-03-13] MEDS: TRAVATAN Z EACHEYE SCH (20:47)
[2020-03-13] MEDS: SNACK - Diabetic Appropriate PO SCH (20:48)
--- NOTE | 2020-03-13 23:22 | PCM.PROG ---
Progress Note - Progress Note for Day of Date of Exam: 03/13/20 - Subjective Subjective: IS BEING TREATED FOR A-FIB WITH RVR, HYPONATREMIA, CHF, UTI, AND LEUKOCYTOSIS. TODAY, SHE IS ALERT AND ORIENTED, LYING IN BED ON MORNING ROUNDS. SHE CONTINUES WITH GENERALIZED WEAKNESS, BUT REPORTS SLIGHT IMPROVEMENT IN SYMPTOMS SINCE YESTERDAY. ON EXAMINATION, HEART IS REGULAR IN RATE AND RHYTHM. BILATERAL LUNGS ARE NOTED WITH DIMINISHED LUNG SOUNDS THROUGHOUT. ABDOMEN IS ROUND, SOFT, AND NOTED WITH SUPRAPUBIC TENDERNESS. NORMAL BOWEL SOUNDS ARE NOTED IN ALL QUADRANTS. HER VITALS THIS MORNING ARE: 97.9-98-24-94%-140/73. LABS WERE OBTAINED. ABNORMAL LAB VALUES INCLUDE THE FOLL OWING: RBC 3.33, HGB 10.6, HCT 29.6, SODIUM 128, BUN 27, CREATININE 1.10, AST 13, TOTAL PROTEIN 5.7, ALBUMIN 2.2. BLOOD AND URINE CULTURES ARE PENDING. PRELIMINARY URINE CULTURES REPORT GROWTH OF E.COLI. IT IS RESISTENT TO THE FORTAZ AND LEVAQUIN THAT SHE IS CURRENTLY RECEIVING. SHE IS CURRENTLY RECEIVING NORMAL SALINE AT 75ML/HR, FORTAZ 1G IV DAILY, LEVAQUIN 500MG IV Q48H, HUMULIN R SLIDING SCALE, AND HOME MEDICATIONS WERE RESUMED. TODAY, WE WILL DISCONTINUE THE FORTAZ AND LEVAQUIN AND START INVANZ 1G IV DAILY. OTHERWISE, WE PLAN TO FOLLOW UP WITH AM LABS AND CONTINUE TO MONITOR. - Past Medical Family Social History Past Med/Fam/Surg Hx: No changes since H&P Allergies: Allergies tuberculin,PPD,multi-puncture Allergy (Verified 03/10/20 13:33) - Review of Systems ROS: No change since H&P - Vital Signs and I&O's Vital Signs: Temperature 98.2 F Pulse Rate [Left Brachial] 92 Pulse Rate 85 Respiratory Rate 20 Blood Pressure [Right Arm] 189/105 Blood Pressure [Left Arm] 182/79 Blood Pressure [Left Calf] 158/69 Blood Pressure 147/90 O2 Sat by Pulse Oximetry 99 Intake and Output: Intake & Output 03/11/20 03/12/20 03/13/20 03/14/20 11:59 11:59 11:59 11:59 Intake Total 1070 / 1070 2351 / 2351 2890 / 2890 3062 / 3062 Output Total 500 / 500 300 / 300 3550 / 3550 2650 / 2650 Balance 570 / 570 2051 / 2051 -660 / -660 412 / 412 - Physical Exam Oriented: Normal Eyes: Normal Ear: Normal Nose: Normal Throat: Normal Respiratory: Generalized, Diminished Cardiovascular: Normal : Normal Auscultation: Bowel Sounds: Normal Palpation: Normal Tenderness: Suprapubic, Mild. negative: Rebound, Guarding, Rigidity Skin: Normal Musculoskeletal: Normal Psychiatric: Normal Mood Description: Calm Affect: Normal Speech Pattern: Clear, Appropriate - Laboratory and Diagnostics Result Diagrams: 03/13/20 05:06 03/13/20 05:06 Labs: 03/10/20 12:25 Urine,Catheterized Urine Culture - Preliminary Escherichia Coli 03/10/20 09:41 Blood Blood Culture - Preliminary 03/10/20 09:41 Blood Blood Culture - Preliminary Laboratory WBC 9.0 X10^3/uL (3.6-10.0) 03/13/20 05:06 RBC 3.33 X10^6/uL (3.5-5.4) L 03/13/20 05:06 Hgb 10.6 g/dL (12.0-16.0) L 03/13/20 05:06 Hct 29.6 % (36.0-47.0) L 03/13/20 05:06 MCV 89.1 fL (80.0-100.0) 03/13/20 05:06 MCH 31.9 pg (27.0-34.0) 03/13/20 05:06 MCHC 35.8 g/dL (33.0-35.0) H 03/13/20 05:06 RDW 14.6 % (11.6-16.5) 03/13/20 05:06 Plt Count 158 X10^3/uL (150.0-450.0) 03/13/20 05:06 MPV 7.6 fL (7.4-11.0) 03/13/20 05:06 Neut % (Auto) 79.1 % (42.0-75.0) H 03/13/20 05:06 Lymph % (Auto) 5.2 % (21.0-51.0) L 03/13/20 05:06 [place] % (Auto) 14.4 % (0.0-13.0) H 03/13/20 05:06 Eos % (Auto) 1.1 % (0.9-2.9) 03/13/20 05:06 Baso % (Auto) 0.2 % (0.2-1.0) 03/13/20 05:06 Neut # (Auto) 7.1 x10^3/uL (2.2-4.8) H 03/13/20 05:06 Lymph # (Auto) 0.5 X10^3/uL (1.3-2.9) L 03/13/20 05:06 [place] # (Auto) 1.3 x10^3/uL (0.3-0.8) H 03/13/20 05:06 Eos # (Auto) 0.1 x10^3/uL (0.0-0.2) 03/13/20 05:06 Baso # (Auto) 0.0 X10^3/uL (0.0-0.1) 03/13/20 05:06 Absolute Nucleated RBC 0.0 /100WBC 03/13/20 05:06 PT 17.6 SECONDS (11.8-14.3) 03/11/20 04:07 INR Target Range - 03/11/20 04:07 INR 1.50 (0.8-1.3) H 03/11/20 04:07 APTT 42.6 SECONDS (22.9-36.5) H 03/11/20 04:07 PTT Comment - 03/11/20 04:07 Sodium 128 mmol/L (136-145) L 03/13/20 05:06 Corrected Sodium TNP 03/13/20 05:06 Potassium 4.3 mmol/L (3.5-5.1) 03/13/20 05:06 Chloride 98 mmol/L (98-107) 03/13/20 05:06 Carbon Dioxide 22.5 mmol/L (21-32) 03/13/20 05:06 BUN 27 mg/dL (7-18) H 03/13/20 05:06 Creatinine 1.10 mg/dL (0.55-1.02) H 03/13/20 05:06 Est GFR (MDRD) Af Amer > 60 (>60) 03/13/20 05:06 Est GFR (MDRD) Non-Af 50 (>60) L 03/13/20 05:06 Glucose 85 mg/dL (65-99) 03/13/20 05:06 POC Glucose (mg/dL) 86 mg/dL (65-99) 03/13/20 20:25 Lactic Acid 1.2 mmol/L (0.4-2.0) 03/10/20 09:41 Calcium 8.7 mg/dL (8.5-10.1) 03/13/20 05:06 Corrected Calcium 10.1 mg/dL (8.5-10.1) 03/13/20 05:06 Magnesium 1.8 mg/dL (1.7-2.9) 03/11/20 04:07 Total Bilirubin 0.50 mg/dL (0.2-1.0) 03/13/20 05:06 AST 13 Units/L (15-37) L 03/13/20 05:06 ALT 14 Units/L (12-78) 03/13/20 05:06 Alkaline Phosphatase 102 Units/L (46-116) 03/13/20 05:06 Creatine Kinase 14 Units/L (26-192) L 03/10/20 22:01 CK-MB (CK-2) < 1.0 ng/mL (0-4.0) 03/10/20 22:01 CK/CKMB % Calc 7.1 % (<4) 03/10/20 22:01 Troponin I < 0.02 ng/mL (0-1.5) 03/10/20 22:01 B-Natriuretic Peptide 1490 pg/mL (0-79) H* 03/10/20 09:41 Total Protein 5.7 g/dL (6.4-8.2) L 03/13/20 05:06 Albumin 2.2 g/dL (3.4-5.0) L 03/13/20 05:06 Globulin 3.5 g/dL (2.5-4.5) 03/13/20 05:06 Albumin/Globulin Ratio 0.6 Ratio (1.1-2.1) L 03/13/20 05:06 Triglycerides 76 mg/dL (0-150) 03/11/20 04:07 Cholesterol 90 mg/dL (0-200) 03/11/20 04:07 LDL Cholesterol, Calc 38 mg/dL (0-100) 03/11/20 04:07 HDL Cholesterol 37 mg/dL (40-60) L 03/11/20 04:07 Cholesterol/HDL Ratio 2.4 (0.0-5.0) 03/11/20 04:07 Specimen Type Catherized urine 03/10/20 12:25 Urine Color Dark yellow (YELLOW) 03/10/20 12:25 Urine Appearance Cloudy (CLEAR) 03/10/20 12:25 Urine pH 6.5 (5.0 - 8.0) 03/10/20 12:25 Ur Specific [place] 1.010 (1.000-1.030) 03/10/20 12:25 Urine Protein 4+ (NEGATIVE) 03/10/20 12:25 Urine Glucose (UA) Negative (NEGATIVE) 03/10/20 12:25 Urine Ketones Negative (NEGATIVE) 03/10/20 12:25 Urine Occult Blood 5+ (NEGATIVE) 03/10/20 12:25 Urine Nitrite Negative (NEGATIVE) 03/10/20 12:25 Urine Bilirubin Negative (NEGATIVE) 03/10/20 12:25 Urine Urobilinogen Normal (NORMAL) 03/10/20 12:25 Ur Leukocyte Esterase 3+ (NEGATIVE) 03/10/20 12:25 Urine RBC 3-5 /HPF (0-3) A 03/10/20 12:25 Urine WBC Tntc /HPF (0-5) A 03/10/20 12:25 Ur Squamous Epith Cells Negative /HPF (NEGATIVE) 03/10/20 12:25 Urine Bacteria 1+ /HPF (NEGATIVE) 03/10/20 12:25 Hyaline Casts Rare /LPF (NEGATIVE) 03/10/20 12:25 Ur Culture Indicated? Yes/culture set up 03/10/20 12:25 SARS-CoV-2 (PCR) Negative (NEGATIVE) 03/10/20 10:25 - Plan (1) Atrial fibrillation with RVR Status: Acute Plan: NORMAL SALINE AT KVO, CARDIZEM DRIP, RESUME HOME MEDS (2) UTI (urinary tract infection) Status: Acute Qualifiers: Urinary tract infection type: site unspecified Hematuria presence: with hematuria Qualified Code(s): N39.0 - Urinary tract infection, site not specified; R31.9 - Hematuria, unspecified Plan: INVANZ 1G IV DAILY, CONTINUE TO MONITOR. (3) CHF (congestive heart failure) Status: Acute Qualifiers: Heart failure type: combined systolic and diastolic Heart failure chronicity: acute on chronic Qualified Code(s): I50.43 - Acute on chronic combined systolic (congestive) and diastolic (congestive) heart failure (4) Leukocytosis Status: Acute Qualifiers: Leukocytosis type: unspecified Qualified Code(s): D72.829 - Elevated white blood cell count, unspecified (5) Hyponatremia Status: Resolved Plan: NORMAL SALINE AT 75 ML/HR, CONTINUE TO MONITOR
[2020-03-14] MEDS: NS 1000 ML 1,000 ML IV SCH ×3 (01:42→23:21)
[2020-03-14] MEDS: ARTIFICIAL TEARS DROPS OP SCH ×3 (05:24→21:18)
[2020-03-14 06:19] LABS: BASOPHILS % (AUTO) 0.4 % (0.2-1.0); EOSINOPHILS # (AUTO) 0.2 x10^3/uL (0.0-0.2); HEMATOCRIT 31.9 % (36.0-47.0); HEMOGLOBIN 11.2 g/dL (12.0-16.0); LYMPHOCYTES # (AUTO) 0.5 X10^3/uL (1.3-2.9); LYMPHOCYTES % (AUTO) 6.3 % (21.0-51.0); MEAN CORPUSCULAR HEMOGLOBIN 31.5 pg (27.0-34.0); MEAN CORPUSCULAR VOLUME 89.8 fL (80.0-100.0); MEAN PLATELET VOLUME 7.5 fL (7.4-11.0); MONOCYTES # (AUTO) 1.2 x10^3/uL (0.3-0.8); MONOCYTES % (AUTO) 15.7 % (0.0-13.0); NEUTROPHILS # (AUTO) 5.8 x10^3/uL (2.2-4.8); NEUTROPHILS % (AUTO) 74.6 % (42.0-75.0); PLATELET COUNT 205 X10^3/uL (150.0-450.0); RED BLOOD COUNT 3.55 X10^6/uL (3.5-5.4); RED CELL DISTRIBUTION WIDTH 14.3 % (11.6-16.5); WHITE BLOOD COUNT 7.8 X10^3/uL (3.6-10.0)
[2020-03-14 06:28] LABS: ALANINE AMINOTRANSFERASE 21 Units/L (12-78); ALBUMIN 2.3 g/dL (3.4-5.0); ALKALINE PHOSPHATASE 159 Units/L (46-116); ASPARTATE AMINO TRANSFERASE 29 Units/L (15-37); BLOOD UREA NITROGEN 14 mg/dL (7-18); CALCIUM 8.8 mg/dL (8.5-10.1); CARBON DIOXIDE 21.8 mmol/L (21-32); CHLORIDE 99 mmol/L (98-107); COR CA(FOR HYPOALB) 10.2 mg/dL (8.5-10.1); CREATININE 0.76 mg/dL (0.55-1.02); SODIUM 131 mmol/L (136-145); eGFR NON BLACK RACES > 60 (>60)
[2020-03-14] MEDS ORDERED: ZESTRIL TAB 20 MG ONE ×2 (08:48→20:16)
[2020-03-14] MEDS: K-DUR TAB 20 MEQ PO SCH (10:02)
[2020-03-14] MEDS: TAB-A-VITE PO SCH (10:02)
[2020-03-14] MEDS: CITRACAL + VITAMIN D PO SCH (10:02)
[2020-03-14] MEDS: MYLICON TAB 80 MG CHEW PO SCH ×2 (10:03→21:16)
[2020-03-14] MEDS: VITAMIN C PO SCH ×2 (10:03→21:18)
[2020-03-14] MEDS: TOPROL XL PO SCH (10:03)
[2020-03-14] MEDS: PROTONIX TAB 40 MG PO SCH (10:03)
[2020-03-14] MEDS: COLACE CAP 100 MG PO SCH ×2 (10:03→21:16)
[2020-03-14] MEDS: ELIQUIS PO SCH ×2 (10:03→21:16)
[2020-03-14] MEDS: HEMOCYTE-PLUS PO SCH (10:04)
[2020-03-14] MEDS: JANUVIA PO SCH (10:04)
[2020-03-14] MEDS: NITRODUR PATCH 0.4 MG/HR TD SCH (10:04)
[2020-03-14] MEDS: QUESTRAN POWDER FOR ORAL SUSP PO SCH (10:04)
[2020-03-14] MEDS: LIPITOR TAB 20 MG PO SCH (10:04)
[2020-03-14] MEDS: INVANZ INJ 1 GM VIAL 1 GM in NS 100 ML IV + SPIKE MINIBAG* 100 ML IV SCH (10:05)
[2020-03-14] MEDS: LEVEMIR SC SCH (10:06)
[2020-03-14] MEDS: ZESTRIL TAB 20 MG PO SCH ×2 (10:10→21:16)
[2020-03-14] MEDS: NUT TX GLUC INTOL LAC FREE SOY PO SCH ×2 (10:10→21:18)
[2020-03-14] MEDS: CHECK PATCH XX SCH ×2 (10:30→21:17)
[2020-03-14] MEDS ORDERED: LEVAQUIN PREMIX IV 500 MG 500 MG/100 ML BAG IV SCH (11:00)
[2020-03-14] MEDS: HumuLIN R SUBCUT PRN ×2 (12:00→17:50)
[2020-03-14] MEDS: SNACK - Diabetic Appropriate PO SCH (20:09)
[2020-03-14] MEDS: TRAVATAN Z EACHEYE SCH (21:18)
--- NOTE | 2020-03-14 23:25 | PCM.PROG ---
Progress Note - Progress Note for Day of Date of Exam: 03/14/20 - Subjective Subjective: IS BEING TREATED FOR A-FIB WITH RVR, HYPONATREMIA, CHF, UTI, AND LEUKOCYTOSIS. TODAY, SHE IS ALERT AND ORIENTED, LYING IN BED ON MORNING ROUNDS. SHE CONTINUES WITH GENERALIZED WEAKNESS, BUT REPORTS SLIGHT IMPROVEMENT IN SYMPTOMS SINCE YESTERDAY. ON EXAMINATION, HEART IS REGULAR IN RATE AND RHYTHM. BILATERAL LUNGS ARE NOTED WITH DIMINISHED LUNG SOUNDS THROUGHOUT. ABDOMEN IS ROUND, SOFT, AND NOTED WITH SUPRAPUBIC TENDERNESS. NORMAL BOWEL SOUNDS ARE NOTED IN ALL QUADRANTS. HER VITALS THIS MORNING ARE: 99.3-54-20-98%-183/88. LABS WERE OBTAINED. ABNORMAL LAB VALUES INCLUDE THE FOLL OWING: HGB 11.2, HCT 31.9, SODIUM 131, ALK PHOS 159, TOTAL PROTEIN 6.0, ALBUMIN 2.3. BLOOD AND URINE CULTURES ARE PENDING. URINE CULTURE REPORTS GROWTH OF E.COLI. IT IS RESISTENT TO THE FORTAZ AND LEVAQUIN THAT SHE IS CURRENTLY RECEIVING. SHE IS CURRENTLY RECEIVING NORMAL SALINE AT 75ML/HR, INVANZ 1G IV DAILY, HUMULIN R SLIDING SCALE, AND HOME MEDICATIONS WERE RESUMED. WE WILL CONTINUE WITH CURRENT PLAN OF CARE TODAY. OTHERWISE, WE PLAN TO FOLLOW UP WITH AM LABS AND CONTINUE TO MONITOR. - Past Medical Family Social History Past Med/Fam/Surg Hx: No changes since H&P Allergies: Allergies tuberculin,PPD,multi-puncture Allergy (Verified 03/10/20 13:33) - Review of Systems ROS: No change since H&P - Vital Signs and I&O's Vital Signs: Temperature 97.7 F Pulse Rate [Left Brachial] 99 Pulse Rate 85 Respiratory Rate 24 Blood Pressure [Right Arm] 200/94 Blood Pressure [Left Arm] 184/80 Blood Pressure [Left Calf] 158/69 Blood Pressure 147/90 O2 Sat by Pulse Oximetry 96 Intake and Output: Intake & Output 03/12/20 03/13/20 03/14/20 03/15/20 11:59 11:59 11:59 11:59 Intake Total 2351 / 2351 2890 / 2890 3284 / 3284 1204 / 1204 Output Total 300 / 300 3550 / 3550 4850 / 4850 3500 / 3500 Balance 2050 / 2050 -660 / -660 -1566 / -1566 -2296 / -2296 - Physical Exam Oriented: Normal Eyes: Normal Ear: Normal Nose: Normal Throat: Normal Respiratory: Generalized, Diminished Cardiovascular: Normal : Normal Auscultation: Bowel Sounds: Normal Tenderness: Suprapubic, Mild. negative: Rebound, Guarding, Rigidity Skin: Normal Musculoskeletal: Normal Psychiatric: Normal Mood Description: Calm Affect: Normal Speech Pattern: Clear, Appropriate - Laboratory and Diagnostics Result Diagrams: 03/14/20 05:29 03/14/20 05:29 Labs: 03/10/20 12:25 Urine,Catheterized Urine Culture - Final Escherichia Coli Escherichia Coli#2 03/10/20 09:41 Blood Blood Culture - Preliminary 03/10/20 09:41 Blood Blood Culture - Preliminary Laboratory WBC 7.8 X10^3/uL (3.6-10.0) 03/14/20 05:29 RBC 3.55 X10^6/uL (3.5-5.4) 03/14/20 05:29 Hgb 11.2 g/dL (12.0-16.0) L 03/14/20 05:29 Hct 31.9 % (36.0-47.0) L 03/14/20 05:29 MCV 89.8 fL (80.0-100.0) 03/14/20 05:29 MCH 31.5 pg (27.0-34.0) 03/14/20 05:29 MCHC 35.0 g/dL (33.0-35.0) 03/14/20 05:29 RDW 14.3 % (11.6-16.5) 03/14/20 05:29 Plt Count 205 X10^3/uL (150.0-450.0) 03/14/20 05:29 MPV 7.5 fL (7.4-11.0) 03/14/20 05:29 Neut % (Auto) 74.6 % (42.0-75.0) 03/14/20 05:29 Lymph % (Auto) 6.3 % (21.0-51.0) L 03/14/20 05:29 [place] % (Auto) 15.7 % (0.0-13.0) H 03/14/20 05:29 Eos % (Auto) 3.0 % (0.9-2.9) H 03/14/20 05:29 Baso % (Auto) 0.4 % (0.2-1.0) 03/14/20 05:29 Neut # (Auto) 5.8 x10^3/uL (2.2-4.8) H 03/14/20 05:29 Lymph # (Auto) 0.5 X10^3/uL (1.3-2.9) L 03/14/20 05:29 [place] # (Auto) 1.2 x10^3/uL (0.3-0.8) H 03/14/20 05:29 Eos # (Auto) 0.2 x10^3/uL (0.0-0.2) 03/14/20 05:29 Baso # (Auto) 0.0 X10^3/uL (0.0-0.1) 03/14/20 05:29 Absolute Nucleated RBC 0.0 /100WBC 03/14/20 05:29 PT 17.6 SECONDS (11.8-14.3) 03/11/20 04:07 INR Target Range - 03/11/20 04:07 INR 1.50 (0.8-1.3) H 03/11/20 04:07 APTT 42.6 SECONDS (22.9-36.5) H 03/11/20 04:07 PTT Comment - 03/11/20 04:07 Sodium 131 mmol/L (136-145) L 03/14/20 05:29 Corrected Sodium TNP 03/14/20 05:29 Potassium 3.6 mmol/L (3.5-5.1) 03/14/20 05:29 Chloride 99 mmol/L (98-107) 03/14/20 05:29 Carbon Dioxide 21.8 mmol/L (21-32) 03/14/20 05:29 BUN 14 mg/dL (7-18) 03/14/20 05:29 Creatinine 0.76 mg/dL (0.55-1.02) 03/14/20 05:29 Est GFR (MDRD) Af Amer > 60 (>60) 03/14/20 05:29 Est GFR (MDRD) Non-Af > 60 (>60) 03/14/20 05:29 Glucose 79 mg/dL (65-99) 03/14/20 05:29 POC Glucose (mg/dL) 155 mg/dL (65-99) H 03/14/20 20:09 Lactic Acid 1.2 mmol/L (0.4-2.0) 03/10/20 09:41 Calcium 8.8 mg/dL (8.5-10.1) 03/14/20 05:29 Corrected Calcium 10.2 mg/dL (8.5-10.1) H 03/14/20 05:29 Magnesium 1.8 mg/dL (1.7-2.9) 03/11/20 04:07 Total Bilirubin 0.60 mg/dL (0.2-1.0) 03/14/20 05:29 AST 29 Units/L (15-37) 03/14/20 05:29 ALT 21 Units/L (12-78) 03/14/20 05:29 Alkaline Phosphatase 159 Units/L (46-116) H 03/14/20 05:29 Creatine Kinase 14 Units/L (26-192) L 03/10/20 22:01 CK-MB (CK-2) < 1.0 ng/mL (0-4.0) 03/10/20 22:01 CK/CKMB % Calc 7.1 % (<4) 03/10/20 22:01 Troponin I < 0.02 ng/mL (0-1.5) 03/10/20 22:01 B-Natriuretic Peptide 1490 pg/mL (0-79) H* 03/10/20 09:41 Total Protein 6.0 g/dL (6.4-8.2) L 03/14/20 05:29 Albumin 2.3 g/dL (3.4-5.0) L 03/14/20 05:29 Globulin 3.7 g/dL (2.5-4.5) 03/14/20 05:29 Albumin/Globulin Ratio 0.6 Ratio (1.1-2.1) L 03/14/20 05:29 Triglycerides 76 mg/dL (0-150) 03/11/20 04:07 Cholesterol 90 mg/dL (0-200) 03/11/20 04:07 LDL Cholesterol, Calc 38 mg/dL (0-100) 03/11/20 04:07 HDL Cholesterol 37 mg/dL (40-60) L 03/11/20 04:07 Cholesterol/HDL Ratio 2.4 (0.0-5.0) 03/11/20 04:07 Specimen Type Catherized urine 03/10/20 12:25 Urine Color Dark yellow (YELLOW) 03/10/20 12:25 Urine Appearance Cloudy (CLEAR) 03/10/20 12:25 Urine pH 6.5 (5.0 - 8.0) 03/10/20 12:25 Ur Specific [place] 1.010 (1.000-1.030) 03/10/20 12:25 Urine Protein 4+ (NEGATIVE) 03/10/20 12:25 Urine Glucose (UA) Negative (NEGATIVE) 03/10/20 12:25 Urine Ketones Negative (NEGATIVE) 03/10/20 12:25 Urine Occult Blood 5+ (NEGATIVE) 03/10/20 12:25 Urine Nitrite Negative (NEGATIVE) 03/10/20 12:25 Urine Bilirubin Negative (NEGATIVE) 03/10/20 12:25 Urine Urobilinogen Normal (NORMAL) 03/10/20 12:25 Ur Leukocyte Esterase 3+ (NEGATIVE) 03/10/20 12:25 Urine RBC 3-5 /HPF (0-3) A 03/10/20 12:25 Urine WBC Tntc /HPF (0-5) A 03/10/20 12:25 Ur Squamous Epith Cells Negative /HPF (NEGATIVE) 03/10/20 12:25 Urine Bacteria 1+ /HPF (NEGATIVE) 03/10/20 12:25 Hyaline Casts Rare /LPF (NEGATIVE) 03/10/20 12:25 Ur Culture Indicated? Yes/culture set up 03/10/20 12:25 SARS-CoV-2 (PCR) Negative (NEGATIVE) 03/10/20 10:25 - Plan (1) Atrial fibrillation with RVR Status: Acute Plan: NORMAL SALINE AT KVO, CARDIZEM DRIP, RESUME HOME MEDS (2) UTI (urinary tract infection) Status: Acute Qualifiers: Urinary tract infection type: site unspecified Hematuria presence: with hematuria Qualified Code(s): N39.0 - Urinary tract infection, site not specified; R31.9 - Hematuria, unspecified Plan: INVANZ 1G IV DAILY, CONTINUE TO MONITOR. (3) CHF (congestive heart failure) Status: Acute Qualifiers: Heart failure type: combined systolic and diastolic Heart failure chronicity: acute on chronic Qualified Code(s): I50.43 - Acute on chronic combined systolic (congestive) and diastolic (congestive) heart failure (4) Leukocytosis Status: Acute Qualifiers: Leukocytosis type: unspecified Qualified Code(s): D72.829 - Elevated white blood cell count, unspecified (5) Hyponatremia Status: Resolved Plan: NORMAL SALINE AT 75 ML/HR, CONTINUE TO MONITOR
[2020-03-15] MEDS: ARTIFICIAL TEARS DROPS OP SCH ×3 (05:44→21:33)
[2020-03-15 06:32] LABS: BASOPHILS # (AUTO) 0.1 X10^3/uL (0.0-0.1); BASOPHILS % (AUTO) 0.8 % (0.2-1.0); EOSINOPHILS # (AUTO) 0.5 x10^3/uL (0.0-0.2); EOSINOPHILS % (AUTO) 7.4 % (0.9-2.9); HEMATOCRIT 31.5 % (36.0-47.0); HEMOGLOBIN 11.2 g/dL (12.0-16.0); LYMPHOCYTES % (AUTO) 15.7 % (21.0-51.0); MEAN CORPUSCULAR HEMOGLOBIN 31.6 pg (27.0-34.0); MEAN CORPUSCULAR HGB CONC 35.5 g/dL (33.0-35.0); MEAN CORPUSCULAR VOLUME 89.2 fL (80.0-100.0); MEAN PLATELET VOLUME 7.1 fL (7.4-11.0); MONOCYTES # (AUTO) 1.2 x10^3/uL (0.3-0.8); MONOCYTES % (AUTO) 17.8 % (0.0-13.0); NEUTROPHILS # (AUTO) 3.8 x10^3/uL (2.2-4.8); NEUTROPHILS % (AUTO) 58.3 % (42.0-75.0); PLATELET COUNT 209 X10^3/uL (150.0-450.0); RED BLOOD COUNT 3.53 X10^6/uL (3.5-5.4); RED CELL DISTRIBUTION WIDTH 14.7 % (11.6-16.5); WHITE BLOOD COUNT 6.6 X10^3/uL (3.6-10.0)
[2020-03-15 06:37] LABS: ALANINE AMINOTRANSFERASE 29 Units/L (12-78); ALBUMIN 2.2 g/dL (3.4-5.0); ALKALINE PHOSPHATASE 170 Units/L (46-116); ASPARTATE AMINO TRANSFERASE 32 Units/L (15-37); BLOOD UREA NITROGEN 10 mg/dL (7-18); CALCIUM 8.4 mg/dL (8.5-10.1); CARBON DIOXIDE 24.5 mmol/L (21-32); CHLORIDE 101 mmol/L (98-107); COR CA(FOR HYPOALB) 9.8 mg/dL (8.5-10.1); CREATININE 0.78 mg/dL (0.55-1.02); SODIUM 133 mmol/L (136-145); TOTAL PROTEIN 5.7 g/dL (6.4-8.2); eGFR NON BLACK RACES > 60 (>60)
[2020-03-15] MEDS ORDERED: ZESTRIL TAB 20 MG ONE ×2 (08:27→20:13)
[2020-03-15] MEDS: TOPROL XL PO SCH (08:49)
[2020-03-15] MEDS: INVANZ INJ 1 GM VIAL 1 GM in NS 100 ML IV + SPIKE MINIBAG* 100 ML IV SCH (08:49)
[2020-03-15] MEDS: VITAMIN C PO SCH ×2 (08:50→21:33)
[2020-03-15] MEDS: CITRACAL + VITAMIN D PO SCH (08:50)
[2020-03-15] MEDS: ZESTRIL TAB 20 MG PO SCH ×2 (08:50→21:33)
[2020-03-15] MEDS: PROTONIX TAB 40 MG PO SCH (08:50)
[2020-03-15] MEDS: HEMOCYTE-PLUS PO SCH (08:50)
[2020-03-15] MEDS: K-DUR TAB 20 MEQ PO SCH (08:50)
[2020-03-15] MEDS: JANUVIA PO SCH (08:51)
[2020-03-15] MEDS: COLACE CAP 100 MG PO SCH ×2 (08:51→21:31)
[2020-03-15] MEDS: LIPITOR TAB 20 MG PO SCH (08:51)
[2020-03-15] MEDS: ELIQUIS PO SCH ×2 (08:51→21:31)
[2020-03-15] MEDS: MYLICON TAB 80 MG CHEW PO SCH ×2 (08:51→21:32)
[2020-03-15] MEDS: TAB-A-VITE PO SCH (08:51)
[2020-03-15] MEDS: NITRODUR PATCH 0.4 MG/HR TD SCH (08:52)
[2020-03-15] MEDS: QUESTRAN POWDER FOR ORAL SUSP PO SCH (08:52)
[2020-03-15] MEDS: CHECK PATCH XX SCH ×2 (08:53→21:30)
[2020-03-15] MEDS: LEVEMIR SC SCH (08:53)
[2020-03-15] MEDS: NUT TX GLUC INTOL LAC FREE SOY PO SCH ×2 (08:53→21:31)
[2020-03-15] MEDS: SNACK - Diabetic Appropriate PO SCH (21:28)
[2020-03-15] MEDS: TRAVATAN Z EACHEYE SCH (21:32)
[2020-03-16] MEDS: NS 1000 ML 1,000 ML IV SCH (00:33)
[2020-03-16] MEDS: ARTIFICIAL TEARS DROPS OP SCH ×2 (06:29→13:36)
[2020-03-16 06:46] LABS: BASOPHILS # (AUTO) 0.1 X10^3/uL (0.0-0.1); BASOPHILS % (AUTO) 1.1 % (0.2-1.0); EOSINOPHILS # (AUTO) 0.6 x10^3/uL (0.0-0.2); HEMATOCRIT 33.8 % (36.0-47.0); HEMOGLOBIN 11.6 g/dL (12.0-16.0); LYMPHOCYTES # (AUTO) 1.3 X10^3/uL (1.3-2.9); LYMPHOCYTES % (AUTO) 20.6 % (21.0-51.0); MEAN CORPUSCULAR HGB CONC 34.4 g/dL (33.0-35.0); MEAN CORPUSCULAR VOLUME 90.2 fL (80.0-100.0); MEAN PLATELET VOLUME 7.7 fL (7.4-11.0); MONOCYTES # (AUTO) 1.1 x10^3/uL (0.3-0.8); MONOCYTES % (AUTO) 17.2 % (0.0-13.0); NEUTROPHILS # (AUTO) 3.3 x10^3/uL (2.2-4.8); NEUTROPHILS % (AUTO) 52.1 % (42.0-75.0); PLATELET COUNT 231 X10^3/uL (150.0-450.0); RED BLOOD COUNT 3.74 X10^6/uL (3.5-5.4); RED CELL DISTRIBUTION WIDTH 14.3 % (11.6-16.5); WHITE BLOOD COUNT 6.4 X10^3/uL (3.6-10.0)
[2020-03-16 06:59] LABS: ALANINE AMINOTRANSFERASE 38 Units/L (12-78); ALBUMIN 2.3 g/dL (3.4-5.0); ALKALINE PHOSPHATASE 190 Units/L (46-116); ASPARTATE AMINO TRANSFERASE 41 Units/L (15-37); BLOOD UREA NITROGEN 10 mg/dL (7-18); CALCIUM 8.5 mg/dL (8.5-10.1); CARBON DIOXIDE 24.5 mmol/L (21-32); CHLORIDE 100 mmol/L (98-107); COR CA(FOR HYPOALB) 9.9 mg/dL (8.5-10.1); CREATININE 0.86 mg/dL (0.55-1.02); SODIUM 133 mmol/L (136-145); TOTAL PROTEIN 5.8 g/dL (6.4-8.2); eGFR NON BLACK RACES > 60 (>60)
[2020-03-16] MEDS ORDERED: ZESTRIL TAB 20 MG ONE (08:11)
[2020-03-16] MEDS: NITRODUR PATCH 0.4 MG/HR TD SCH (09:09)
[2020-03-16] MEDS: JANUVIA PO SCH (09:10)
[2020-03-16] MEDS: HEMOCYTE-PLUS PO SCH (09:10)
[2020-03-16] MEDS: QUESTRAN POWDER FOR ORAL SUSP PO SCH (09:10)
[2020-03-16] MEDS: COLACE CAP 100 MG PO SCH (09:10)
[2020-03-16] MEDS: MYLICON TAB 80 MG CHEW PO SCH (09:10)
[2020-03-16] MEDS: TOPROL XL PO SCH (09:10)
[2020-03-16] MEDS: LIPITOR TAB 20 MG PO SCH (09:11)
[2020-03-16] MEDS: INVANZ INJ 1 GM VIAL 1 GM in NS 100 ML IV + SPIKE MINIBAG* 100 ML IV SCH (09:11)
[2020-03-16] MEDS: ELIQUIS PO SCH (09:11)
[2020-03-16] MEDS: PROTONIX TAB 40 MG PO SCH (09:11)
[2020-03-16] MEDS: K-DUR TAB 20 MEQ PO SCH (09:12)
[2020-03-16] MEDS: CHECK PATCH XX SCH (09:12)
[2020-03-16] MEDS: CITRACAL + VITAMIN D PO SCH (09:12)
[2020-03-16] MEDS: TAB-A-VITE PO SCH (09:12)
[2020-03-16] MEDS: LEVEMIR SC SCH (09:16)
[2020-03-16] MEDS: NUT TX GLUC INTOL LAC FREE SOY PO SCH (09:16)
[2020-03-16] MEDS: VITAMIN C PO SCH (09:17)
[2020-03-16] MEDS: ZESTRIL TAB 20 MG PO SCH (09:17)
[2020-03-16 11:48] VITALS: BP 127/91
[2020-03-16] MEDS: HumuLIN R SUBCUT PRN (12:12)
== END 2020-03-16 14:33 | disposition home or self-care (01) | DRG 309 ==
LOC: ER 09:22 → MED/SURG 11:19
PROVIDERS: ADMIT Internal Medicine; ATTEND Internal Medicine
DX: R31.9 Hematuria, unspecified; D72.829 Elevated white blood cell count, unspecified; Z11.59 Encounter for screening for other viral diseases; I48.91 Unspecified atrial fibrillation; I50.9 Heart failure, unspecified; E11.9 Type 2 diabetes mellitus without complications; R50.9 Fever, unspecified; R79.1 Abnormal coagulation profile; B96.20 Unspecified Escherichia coli [E. coli] as the cause of diseases classified elsewhere; E11.8 Type 2 diabetes mellitus with unspecified complications; N39.0 Urinary tract infection, site not specified
CPT/HCPCS: 36415; 51702; 71010; 71045; 80053; 80061; 81001; 82550; 82553; 83605; 83735; 83880; 84484; 85025; 85610; 85730; 87040; 87086; 87088; 87186; 87635; 93005; 94760; 96365; 96374; 96375; 97110; 97162; 97166; 97530; 97535; 99285; A4216; A4222; J0696; J0713; J1335; J1815; J1940; J1956; J3490; J7030; J7050

== ENCOUNTER 2020-04-01 16:55 | Inpatient (IN) ==
[2020-04-01] MEDS ORDERED: NS 1000 ML 1,000 ML ONE (17:11)
[2020-04-01] MEDS ORDERED: ZOFRAN INJ 4 MG VIAL ONE (17:36)
[2020-04-01] MEDS ORDERED: ASPIRIN 81 MG CHEWTAB ONE (17:36)
[2020-04-01] MEDS ORDERED: NS 1000 ML 1,000 ML IV ONE (17:42)
[2020-04-01] MEDS ORDERED: ZOFRAN INJ 4 MG VIAL IVP ONE (17:43)
[2020-04-01] MEDS ORDERED: ASPIRIN 81 MG CHEWTAB PO STA (17:43)
--- NOTE | 2020-04-01 18:16 | RAD ---
[facility] x-ray, 1 VIEWCOMPARISONX-ray 03/10/2020FINDINGSProbable CHF and pulmonary edema. Probable external rounded density projected overlying the left upper lobe that is not seen previously. No pneumothorax or pleural effusion is seen.IMPRESSIONProbable CHF and pulmonary edema.Probable artifactual nodular density projected overlying the left lung apex. Continued x-ray follow-up is recommended.Electronically signed by: Chay Mancia (Apr 01, 2020 18:14:41)
[2020-04-01 18:18] LABS: BASOPHILS % (AUTO) 0.2 % (0.2-1.0); EOSINOPHILS % (AUTO) 0.1 % (0.9-2.9); HEMATOCRIT 29.4 % (36.0-47.0); HEMOGLOBIN 10.1 g/dL (12.0-16.0); LYMPHOCYTES # (AUTO) 0.3 X10^3/uL (1.3-2.9); LYMPHOCYTES % (AUTO) 3.5 % (21.0-51.0); MEAN CORPUSCULAR HEMOGLOBIN 30.6 pg (27.0-34.0); MEAN CORPUSCULAR HGB CONC 34.3 g/dL (33.0-35.0); MEAN CORPUSCULAR VOLUME 89.3 fL (80.0-100.0); MEAN PLATELET VOLUME 7.7 fL (7.4-11.0); MONOCYTES % (AUTO) 10.7 % (0.0-13.0); NEUTROPHILS # (AUTO) 8.1 x10^3/uL (2.2-4.8); NEUTROPHILS % (AUTO) 85.5 % (42.0-75.0); PLATELET COUNT 158 X10^3/uL (150.0-450.0); RED BLOOD COUNT 3.29 X10^6/uL (3.5-5.4); RED CELL DISTRIBUTION WIDTH 15.2 % (11.6-16.5); WHITE BLOOD COUNT 9.5 X10^3/uL (3.6-10.0)
[2020-04-01 19:01] LABS: ALANINE AMINOTRANSFERASE 15 Units/L (12-78); ALBUMIN 2.4 g/dL (3.4-5.0); ALKALINE PHOSPHATASE 108 Units/L (46-116); ASPARTATE AMINO TRANSFERASE 13 Units/L (15-37); BLOOD UREA NITROGEN 28 mg/dL (7-18); CALCIUM 8.3 mg/dL (8.5-10.1); CARBON DIOXIDE 22.3 mmol/L (21-32); CHLORIDE 96 mmol/L (98-107); CKMB % 5.3 % (<4); COR CA(FOR HYPOALB) 9.6 mg/dL (8.5-10.1); CREATINE KINASE 19 Units/L (26-192); CREATINE KINASE MB < 1.0 ng/mL (0-4.0); CREATININE 1.81 mg/dL (0.55-1.02); MAGNESIUM 2.2 mg/dL (1.7-2.9); TOTAL PROTEIN 5.9 g/dL (6.4-8.2); TROPONIN I < 0.02 ng/mL (0-1.5); eGFR NON BLACK RACES 28 (>60)
[2020-04-01 19:02] LABS: SODIUM 125 mmol/L (136-145)
[2020-04-01] MEDS ORDERED: ROCEPHIN VIAL 1 GRAM IV ONE (19:51)
--- NOTE | 2020-04-01 20:01 | DR.FEVERAD ---
HPI Time seen Time Seen by Provider: 04/01/20 17:31 PCP Primary Care Physician: TIFFANI HPI Comment HPI Comment: Hypotensive, febrile, diaphoretic on arrival from [place] [facility]. Known patient, not very communicative, can answer yes/no. Nods yes for nausea, no for SHOB, chest pain, abdominal pain. Complaints/Symptoms Chief Complaint:: [place] STATES PTS BP IS 63/41. RECHECHECKED AND IT WAS 70/40. UPON ARRIVING TO ER PT IS DIAPHORTIC, FEVER IS 101.6 AXILLARY. Source History Provided: [facility] Mode of Arrival Mode of Arrival: Stretcher Timing Onset of Chief Complaint: 04/01/20 PMH PMH Past Medical History: Yes Past Medical History: Anemia, Arthritis, Asthma, CHF, Coronary Artery Disease, CVA, Depression, Diabetes, Dyslipidemia, GERD, Hypertension and Hypothyroidism Past Surgical History: Yes Surgical History: Angioplasty/Stents, CONTENT CHECKER Surgery and Other Family History History of Family Medical Conditions: Yes Family Medical History: Diabetes Mellitus, Coronary Artery Disease, Sudden Cardiac and Hypertension Social History Alcohol Use: None Do you use any recreational Drugs:: No Lives With: Other Lives Where: [facility] Infectious screening In the last 2 months have you had wt loss of >10#?: NO Have you had fever, night sweats or hemotysis?: No Have you traveled outside the country in the last 6 months?: No Isolation: Standard ROS Review of Systems Constitutional: See HPI Eyes: No Symptoms Reported ENTM: No Symptoms Reported Respiratoy: No Symptoms Reported Cardiovascular: See HPI Gastrointestinal/Abdominal: See HPI Genitourinary: No Symptoms Reported Neurological: No Symptoms Reported Musculoskeletal: No Symptoms Reported Integumentary: No Symptoms Reported Hematologic/Lymphatic: No Symptoms Reported Endocrine: No Symptoms Reported Psychiatric: No Symptoms Reported All Other Systems: Reviewed and Negative PE Vital Signs Vitals: Temperature 98.6 F Pulse Rate [Apical] 50 Pulse Rate 60 Respiratory Rate 22 Blood Pressure [Right Arm] 89/53 Blood Pressure [Left Arm] 127/91 Blood Pressure 80/48 O2 Sat by Pulse Oximetry 100 General Limitations: No Limitations and Altered Mental Status General Appearance: Alert and Lethargic Head Head Exam: Normal Inspection and Atraumatic Eyes Eye exam: Normal Appearance and PERRL ENT ENT Exam: Normal Exam and Mucous Membranes Dry Neck Neck Exam: Normal Inspection and Other (No JVD) Respiratory Respiratory Exam: Normal Lung Sounds Bilat Respiratory Exam: Bilateral: Clear to Auscultation Cardiovascular Cardiovascular Exam: Normal Rhythm and Bradycardia Abdominal Exam Abdominal Exam: Normal Inspection, Normal Bowel Sounds and Soft; negative Distention, Tenderness, Guarding, Rebound and Rigidity Extremities Extremities Exam: Normal Inspection; negative Edema Back Back Exam: Normal Inspection Neurologic Neurological Exam: Alert and CN II-XII Intact Psychiatric Psychiatric Exam: Normal Affect and Normal Mood Skin Skin Exam: Warm, Dry, Intact and Normal Color COURSE Treatment Treatment: Blood pressure improved after 1L NSS bolus and removal of Nitroglycerin and Catapres patches. She is found to be hyponatremic, and source of fever is unknown. Rocephin given blood cultures collected. Case discussed with Dr. Phillips, admitted for obs. ROR Labs Reviewed Laboratory Results Reviewed?: Yes Result Diagrams: 04/01/20 18:04 04/01/20 18:04 Laboratory: WBC 9.5 X10^3/uL (3.6-10.0) 04/01/20 18:04 RBC 3.29 X10^6/uL (3.5-5.4) L 04/01/20 18:04 Hgb 10.1 g/dL (12.0-16.0) L 04/01/20 18:04 Hct 29.4 % (36.0-47.0) L 04/01/20 18:04 MCV 89.3 fL (80.0-100.0) 04/01/20 18:04 MCH 30.6 pg (27.0-34.0) 04/01/20 18:04 MCHC 34.3 g/dL (33.0-35.0) 04/01/20 18:04 RDW 15.2 % (11.6-16.5) 04/01/20 18:04 Plt Count 158 X10^3/uL (150.0-450.0) 04/01/20 18:04 MPV 7.7 fL (7.4-11.0) 04/01/20 18:04 Neut % (Auto) 85.5 % (42.0-75.0) H 04/01/20 18:04 Lymph % (Auto) 3.5 % (21.0-51.0) L 04/01/20 18:04 [place] % (Auto) 10.7 % (0.0-13.0) 04/01/20 18:04 Eos % (Auto) 0.1 % (0.9-2.9) L 04/01/20 18:04 Baso % (Auto) 0.2 % (0.2-1.0) 04/01/20 18:04 Neut # (Auto) 8.1 x10^3/uL (2.2-4.8) H 04/01/20 18:04 Lymph # (Auto) 0.3 X10^3/uL (1.3-2.9) L 04/01/20 18:04 [place] # (Auto) 1.0 x10^3/uL (0.3-0.8) H 04/01/20 18:04 Eos # (Auto) 0.0 x10^3/uL (0.0-0.2) 04/01/20 18:04 Baso # (Auto) 0.0 X10^3/uL (0.0-0.1) 04/01/20 18:04 Absolute Nucleated RBC 0.0 /100WBC 04/01/20 18:04 Sodium 125 mmol/L (136-145) L* 04/01/20 18:04 Corrected Sodium TNP 04/01/20 18:04 Potassium 4.8 mmol/L (3.5-5.1) 04/01/20 18:04 Chloride 96 mmol/L (98-107) L 04/01/20 18:04 Carbon Dioxide 22.3 mmol/L (21-32) 04/01/20 18:04 BUN 28 mg/dL (7-18) H 04/01/20 18:04 Creatinine 1.81 mg/dL (0.55-1.02) H 04/01/20 18:04 Est GFR (MDRD) Af Amer 34 (>60) L 04/01/20 18:04 Est GFR (MDRD) Non-Af 28 (>60) L 04/01/20 18:04 Glucose 97 mg/dL (65-99) 04/01/20 18:04 Lactic Acid 1.0 mmol/L (0.4-2.0) 04/01/20 18:04 Calcium 8.3 mg/dL (8.5-10.1) L 04/01/20 18:04 Corrected Calcium 9.6 mg/dL (8.5-10.1) 04/01/20 18:04 Magnesium 2.2 mg/dL (1.7-2.9) 04/01/20 18:04 Total Bilirubin 0.70 mg/dL (0.2-1.0) 04/01/20 18:04 AST 13 Units/L (15-37) L 04/01/20 18:04 ALT 15 Units/L (12-78) 04/01/20 18:04 Alkaline Phosphatase 108 Units/L (46-116) 04/01/20 18:04 Creatine Kinase 19 Units/L (26-192) L 04/01/20 18:04 CK-MB (CK-2) < 1.0 ng/mL (0-4.0) 04/01/20 18:04 CK/CKMB % Calc 5.3 % (<4) 04/01/20 18:04 Troponin I < 0.02 ng/mL (0-1.5) 04/01/20 18:04 B-Natriuretic Peptide 1110 pg/mL (0-79) H* 04/01/20 18:11 Total Protein 5.9 g/dL (6.4-8.2) L 04/01/20 18:04 Albumin 2.4 g/dL (3.4-5.0) L 04/01/20 18:04 Globulin 3.5 g/dL (2.5-4.5) 04/01/20 18:04 Albumin/Globulin Ratio 0.7 Ratio (1.1-2.1) L 04/01/20 18:04 XRAY XRAY Interpreted by: Self X-ray Results: Appearance of mild pulmonary edema. Radiologist read is pérez haile. EKG Rate: 56 [place]: LAD Rhythm: NSR Block: 1 Hypertrophy: LVH ST: Normal Opioid Opioid Risk Tool Age (Marcos box if 16-45): No History of Preadolescent Sexual Abuse: No Total: 0 Total Score Risk Category: Low Risk Copyright: Tadeo CHAHAL predicting aberrant behaviors Diagnosis Discharge Problem: Drug-induced hypotension, Acute hyponatremia Fever Qualifiers: Fever type: unspecified Qualified Code(s): R50.9 - Fever, unspecified Instructions Forms: Excuse From Work Precautions for COVID19 Patient Portal Social Distancing
[2020-04-01] MEDS ORDERED: ROCEPHIN VIAL 1 GRAM ONE (21:29)
[2020-04-01] MEDS ORDERED: NS 100 ML IV + SPIKE MINIBAG* 100 ML IV ONE (21:30)
[2020-04-01] MEDS ORDERED: TRAVOPROST EACHEYE SCH (22:42)
[2020-04-01] MEDS ORDERED: CARBOXYMETHYLCELLULOSE SODIUM OP SCH (22:42)
[2020-04-01] MEDS ORDERED: NUT TX GLUC INTOL LAC FREE SOY PO SCH (22:42)
[2020-04-01 23:45] VITALS: BMI 23.3
[2020-04-01] MEDS ORDERED: PHARMACY CONSULT LTC MEDICATIONS XX SCH (23:45)
[2020-04-01] MEDS: NS 1000 ML 1,000 ML IV SCH (23:48)
[2020-04-01] MEDS ORDERED: D50W ABBOJECT SYR IV ONE (23:59)
[2020-04-02] MEDS ORDERED: D50W ABBOJECT SYR ONE
[2020-04-02] MEDS: COLACE CAP 100 MG PO SCH ×3 (00:23→20:05)
[2020-04-02] MEDS: LIPITOR TAB 20 MG PO SCH ×2 (00:23→20:08)
[2020-04-02] MEDS: ELIQUIS PO SCH ×3 (00:23→20:07)
[2020-04-02 01:59] LABS: BILIRUBIN,URINE NEGATIVE (NEGATIVE); BLOOD/HEMOGLOBIN,URINE 2+ (NEGATIVE); GLUCOSE, URINE NEGATIVE (NEGATIVE); KETONES,URINE NEGATIVE (NEGATIVE); LEUKOCYTE ESTERASE ,URINE 3+ (NEGATIVE); NITRITES,URINE NEGATIVE (NEGATIVE); PROTEIN,URINE 3+ (NEGATIVE); UROBILINOGEN,URINE NORMAL (NORMAL)
[2020-04-02 02:13] LABS: APPEARANCE,URINE HAZY (CLEAR); COLOR,URINE YELLOW (YELLOW)
[2020-04-02 02:14] LABS: BACTERIA,URINE 3+ /HPF (NEGATIVE); RBC,URINE NONE SEEN /HPF (0-3); SQUAMOUS EPITHELIAL CELL,UR NUMEROUS /HPF (NEGATIVE)
[2020-04-02] MEDS: ARTIFICIAL TEARS DROPS EACHEYE SCH ×3 (06:09→22:38)
[2020-04-02 06:23] LABS: BASOPHILS % (AUTO) 0.1 % (0.2-1.0); EOSINOPHILS % (AUTO) 0.2 % (0.9-2.9); HEMATOCRIT 30.6 % (36.0-47.0); HEMOGLOBIN 10.6 g/dL (12.0-16.0); LYMPHOCYTES # (AUTO) 0.2 X10^3/uL (1.3-2.9); MEAN CORPUSCULAR HEMOGLOBIN 30.8 pg (27.0-34.0); MEAN CORPUSCULAR HGB CONC 34.5 g/dL (33.0-35.0); MEAN CORPUSCULAR VOLUME 89.5 fL (80.0-100.0); MEAN PLATELET VOLUME 7.9 fL (7.4-11.0); MONOCYTES # (AUTO) 1.4 x10^3/uL (0.3-0.8); MONOCYTES % (AUTO) 16.2 % (0.0-13.0); NEUTROPHILS # (AUTO) 6.9 x10^3/uL (2.2-4.8); NEUTROPHILS % (AUTO) 81.5 % (42.0-75.0); PLATELET COUNT 135 X10^3/uL (150.0-450.0); RED BLOOD COUNT 3.42 X10^6/uL (3.5-5.4); RED CELL DISTRIBUTION WIDTH 15.4 % (11.6-16.5); WHITE BLOOD COUNT 8.5 X10^3/uL (3.6-10.0)
[2020-04-02 08:31] LABS: ALANINE AMINOTRANSFERASE 15 Units/L (12-78); ALBUMIN 2.5 g/dL (3.4-5.0); ALKALINE PHOSPHATASE 114 Units/L (46-116); ASPARTATE AMINO TRANSFERASE 15 Units/L (15-37); BLOOD UREA NITROGEN 33 mg/dL (7-18); CALCIUM 8.6 mg/dL (8.5-10.1); CARBON DIOXIDE 19.6 mmol/L (21-32); CHLORIDE 96 mmol/L (98-107); COR CA(FOR HYPOALB) 9.8 mg/dL (8.5-10.1); CREATININE 1.77 mg/dL (0.55-1.02); SODIUM 127 mmol/L (136-145); TOTAL PROTEIN 6.3 g/dL (6.4-8.2); eGFR NON BLACK RACES 29 (>60)
[2020-04-02] MEDS ORDERED: SITAGLIPTIN 50 MG PO SCH (09:00)
[2020-04-02] MEDS ORDERED: NS 50 ML IV 50 ML IV ONE (09:31)
[2020-04-02] MEDS: K-DUR TAB 20 MEQ PO SCH (09:35)
[2020-04-02] MEDS: ROCEPHIN VIAL 1 GRAM IV SCH ×2 (09:35→20:08)
[2020-04-02] MEDS: SYNTHROID 75 mcg TAB PO SCH (09:36)
[2020-04-02] MEDS: TOPROL XL PO SCH (09:36)
[2020-04-02] MEDS: JANUVIA PO SCH (09:36)
[2020-04-02] MEDS: LEVEMIR SC SCH (09:38)
[2020-04-02] MEDS: LASIX IVP SCH ×2 (09:45→16:16)
[2020-04-02] MEDS: TYLENOL 325 MG TAB PO PRN ×2 (11:00→20:06)
[2020-04-02] MEDS: NUT TX GLUC INTOL LAC FREE SOY PO SCH ×2 (13:38→22:38)
[2020-04-02] MEDS: NS 1000 ML 1,000 ML IV SCH (15:48)
[2020-04-02] MEDS: ULTRAM PO PRN (17:13)
[2020-04-02] MEDS ORDERED: NS 100 ML IV + SPIKE MINIBAG* 100 ML IV ONE (19:56)
[2020-04-02] MEDS: SNACK - Diabetic Appropriate PO SCH (20:04)
[2020-04-02] MEDS: TRAVATAN Z EACHEYE SCH (20:09)
[2020-04-03] MEDS: NS 1000 ML 1,000 ML IV SCH ×2 (01:49→14:00)
[2020-04-03] MEDS: ARTIFICIAL TEARS DROPS EACHEYE SCH ×3 (05:04→21:09)
[2020-04-03] MEDS: NUT TX GLUC INTOL LAC FREE SOY PO SCH ×3 (05:04→21:25)
--- NOTE | 2020-04-03 05:53 | RAD ---
STUDY: CHEST, 1 VIEWCOMPARISON: April 01, 2020HISTORY: SOBFINDINGS:Since the prior study, there is interval development of worsening increased interstitial lung markings throughout the right left lung. The cardiomediastinal contour is magnified on this portable technique but grossly stable from prior study. No pleural effusion or gross pneumothorax is seen.IMPRESSION:Overall there is interval development of worsening increased interstitial lung markings throughout the right and left lung. This could represent pulmonary edema or progressively worsening viral interstitial pneumoniaElectronically signed by: Ganga Means (Apr 03, 2020 05:52:39)
[2020-04-03 06:24] LABS: BASOPHILS % (AUTO) 0.1 % (0.2-1.0); EOSINOPHILS % (AUTO) 0.2 % (0.9-2.9); HEMATOCRIT 28.2 % (36.0-47.0); HEMOGLOBIN 9.8 g/dL (12.0-16.0); LYMPHOCYTES # (AUTO) 0.2 X10^3/uL (1.3-2.9); LYMPHOCYTES % (AUTO) 3.3 % (21.0-51.0); MEAN CORPUSCULAR HGB CONC 34.7 g/dL (33.0-35.0); MEAN CORPUSCULAR VOLUME 89.2 fL (80.0-100.0); MEAN PLATELET VOLUME 8.4 fL (7.4-11.0); MONOCYTES # (AUTO) 1.2 x10^3/uL (0.3-0.8); NEUTROPHILS # (AUTO) 5.9 x10^3/uL (2.2-4.8); NEUTROPHILS % (AUTO) 80.4 % (42.0-75.0); PLATELET COUNT 125 X10^3/uL (150.0-450.0); RED BLOOD COUNT 3.16 X10^6/uL (3.5-5.4); RED CELL DISTRIBUTION WIDTH 15.4 % (11.6-16.5); WHITE BLOOD COUNT 7.3 X10^3/uL (3.6-10.0)
[2020-04-03 06:58] LABS: ALBUMIN 2.3 g/dL (3.4-5.0); CALCIUM 8.2 mg/dL (8.5-10.1); CARBON DIOXIDE 22.7 mmol/L (21-32); COR CA(FOR HYPOALB) 9.6 mg/dL (8.5-10.1); CREATININE 1.37 mg/dL (0.55-1.02); TOTAL PROTEIN 5.9 g/dL (6.4-8.2)
[2020-04-03] MEDS ORDERED: NS 50 ML IV + SPIKE MINIBAG* 50 ML IV ONE (08:58)
[2020-04-03] MEDS: TOPROL XL PO SCH (09:06)
[2020-04-03] MEDS: LASIX IVP SCH ×2 (09:06→18:59)
[2020-04-03] MEDS: K-DUR TAB 20 MEQ PO SCH (09:06)
[2020-04-03] MEDS: SYNTHROID 75 mcg TAB PO SCH (09:06)
[2020-04-03] MEDS: COLACE CAP 100 MG PO SCH ×2 (09:07→21:09)
[2020-04-03] MEDS: JANUVIA PO SCH (09:07)
[2020-04-03] MEDS: ELIQUIS PO SCH ×2 (09:08→21:08)
[2020-04-03] MEDS: LEVEMIR SC SCH (09:08)
[2020-04-03] MEDS: ROCEPHIN VIAL 1 GRAM IV SCH (09:08)
[2020-04-03] MEDS ORDERED: LEVAQUIN PREMIX IV 500 MG 500 MG/100 ML BAG IV NR (10:00)
[2020-04-03] MEDS: FORTAZ or TAZICEF VIAL INJ 1 G in NS 100 ML IV + SPIKE MINIBAG* 100 ML IV SCH ×2 (11:30→21:09)
[2020-04-03] MEDS: TYLENOL 325 MG TAB PO PRN (12:24)
--- NOTE | 2020-04-03 12:34 | DR.H&P ---
H&P - History & Physical for Day of: H&P Date: 04/01/20 - Chief Complaint Chief Complaint: HYPOTENSIVE, FEBRILE, DIAPHORETIC, AND REPORTING NAUSEA - History of Present Illness History of Present Illness: HYPOTENSIVE, FEBRILE, DIAPHORETIC, AND REPORTING NAUSEA - Past Medical History Past Medical History: Coronary Artery Disease, Hypertension, Dyslipidemia, Diabetes, Depression, Hypothyroidism, Anemia, CVA, Asthma, GERD, Arthritis, CHF Additional Medical History: DVT, Sleep Apnea, Depression, Chronic Sinusitis, Allergic Rhinitis, Constipation, Edema, UTI's, Pneumonia, Arthritis, Cataracts, Osteoporosis, Glaucoma, Ear Infections, Gastrointestinal Ulcer, Cardiac Arrhythmia, Muscle Weakness, Osteoporsis, Restless leg syndrome - Past Surgical History Surgical History: Angioplasty/Stents, DIRECTOR PUBLIC Surgery, Other Additional Surgical History: Sinus surgery - Family History Family Medical History: Diabetes Mellitus, Coronary Artery Disease, Sudden Cardiac , Hypertension - Social History Alcohol Use: None Drug Use: None - Medications Home Medications: tuberculin,PPD,multi-puncture Allergy (Verified 03/10/20 13:33) CONTINUE taking the following medications nitroglycerin [Nitro-Dur] 1 patch TOPICAL DAILY 04/02/20 [History] - Review of Systems Constitutional: Fever, Chills, Sweats, Weakness Eyes: No Symptoms Reported ENT: No Symptoms Reported Respiratory: No Symptoms Reported. denies: SOB with Excertion Cardiovascular: No Symptoms Reported Gastrointestinal: Nausea. denies: Abdominal Pain Genitourinary: No Symptoms Reported Musculoskeletal: No Symptoms Reported Skin: No Symptoms Reported Neurological: Weakness - Physical Exam Vital Signs: Temperature 101.3 F Pulse Rate [Apical] 84 Pulse Rate 60 Respiratory Rate 20 Blood Pressure [Right Arm] 149/67 Blood Pressure [Left Arm] 127/91 Blood Pressure 80/48 O2 Sat by Pulse Oximetry 100 Oriented: Normal Eyes: Normal Ear: Normal Nose: Normal Throat: Normal Respiratory: Diminished Throughout Cardiovascular: Normal : Normal Auscultation: Bowel Sounds: Normal Palpation: Normal Tenderness: Normal Skin: Normal Musculoskeletal: Normal Psychiatric: Normal Mood Description: Calm Affect: Normal Speech Pattern: Clear - Assessment/Plan (1) Sepsis Qualifiers: Sepsis type: sepsis due to unspecified organism Sepsis acute organ dysfunction status: unspecified Qualified Code(s): A41.9 - Sepsis, unspecified organism Status: Acute Plan: ADMIT, NS AT 75 ML/HR, ROCEPHIN 1G IV BID, HUMULIN R SLIDING SCALE, LASIX 20MG IV Q12H, AND HER HOME MEDICATIONS WERE RESUMED WITH THE EXCEPTION OF HER PATCHES (2) Urinary tract infection Qualifiers: Urinary tract infection type: acute cystitis Hematuria presence: without hematuria Qualified Code(s): N30.00 - Acute cystitis without hematuria Status: Acute (3) CHF (congestive heart failure) Qualifiers: Heart failure type: unspecified Heart failure chronicity: acute on chronic Qualified Code(s): I50.9 - Heart failure, unspecified Status: Chronic (4) Acute hyponatremia Status: Acute (5) Hypotension Qualifiers: Hypotension type: unspecified hypotension type Qualified Code(s): I95.9 - Hypotension, unspecified Status: Acute (6) Diabetes mellitus, type 2 Qualifiers: Diabetes mellitus ad terminal makeup operator insulin use: with nursing home use Diabetes mellitus complication status: without complication Qualified Code(s): E11.9 - Type 2 diabetes mellitus without complications; Z79.4 - long-term (current) use of insulin Status: Chronic - Allergies Allergies/Adverse Reactions: Allergies Allergy/AdvReac Type Severity Reaction Status Date / Time tuberculin,PPD,multi-puncture Allergy Verified 03/10/20 13:33
[2020-04-03] MEDS: SNACK - Diabetic Appropriate PO SCH (20:00)
[2020-04-03] MEDS: LIPITOR TAB 20 MG PO SCH (21:08)
[2020-04-03] MEDS: TRAVATAN Z EACHEYE SCH (23:06)
[2020-04-04] MEDS ORDERED: ZOFRAN INJ 4 MG VIAL ONE (01:05)
[2020-04-04] MEDS: ZOFRAN INJ 4 MG VIAL IVP PRN ×4 (01:24→20:00)
[2020-04-04] MEDS: TYLENOL 325 MG TAB PO PRN (01:25)
[2020-04-04] MEDS: NS 1000 ML 1,000 ML IV SCH ×2 (04:47→18:02)
--- NOTE | 2020-04-04 06:28 | RAD ---
CHEST, 1 VIEWHISTORY: SOBStudy: Single view of the chest.Comparison:April 03, 2020Findings:Mild cardiomegaly no change in the appearance of bilateral interstitial opacities . osseous structures demonstrate no acute abnormality.IMPRESSION:1. No change from prior.Electronically signed by: PUAL LINARES (Apr 04, 2020 06:27:39)
[2020-04-04 06:35] LABS: BASOPHILS % (AUTO) 0.2 % (0.2-1.0); EOSINOPHILS % (AUTO) 0.3 % (0.9-2.9); HEMATOCRIT 32.8 % (36.0-47.0); HEMOGLOBIN 11.1 g/dL (12.0-16.0); LYMPHOCYTES # (AUTO) 0.7 X10^3/uL (1.3-2.9); LYMPHOCYTES % (AUTO) 6.9 % (21.0-51.0); MEAN CORPUSCULAR HGB CONC 33.9 g/dL (33.0-35.0); MEAN CORPUSCULAR VOLUME 88.6 fL (80.0-100.0); MEAN PLATELET VOLUME 7.8 fL (7.4-11.0); MONOCYTES # (AUTO) 1.3 x10^3/uL (0.3-0.8); MONOCYTES % (AUTO) 12.1 % (0.0-13.0); NEUTROPHILS # (AUTO) 8.6 x10^3/uL (2.2-4.8); NEUTROPHILS % (AUTO) 80.5 % (42.0-75.0); PLATELET COUNT 178 X10^3/uL (150.0-450.0); RED CELL DISTRIBUTION WIDTH 15.4 % (11.6-16.5); WHITE BLOOD COUNT 10.7 X10^3/uL (3.6-10.0)
[2020-04-04] MEDS: ARTIFICIAL TEARS DROPS EACHEYE SCH ×3 (06:42→22:08)
[2020-04-04] MEDS: NUT TX GLUC INTOL LAC FREE SOY PO SCH ×4 (06:42→22:08)
[2020-04-04 06:57] LABS: ALBUMIN 2.3 g/dL (3.4-5.0); CALCIUM 8.6 mg/dL (8.5-10.1); CARBON DIOXIDE 21.9 mmol/L (21-32); CREATININE 1.14 mg/dL (0.55-1.02); TOTAL PROTEIN 6.4 g/dL (6.4-8.2)
[2020-04-04] MEDS: LASIX IVP SCH ×2 (08:36→16:39)
[2020-04-04] MEDS: LEVAQUIN PREMIX IV 250 MG 250 MG/50 ML BAG IV SCH (08:36)
[2020-04-04] MEDS: COLACE CAP 100 MG PO SCH ×2 (08:36→21:00)
[2020-04-04] MEDS: SYNTHROID 75 mcg TAB PO SCH (08:37)
[2020-04-04] MEDS: ELIQUIS PO SCH ×2 (08:37→21:00)
[2020-04-04] MEDS: TOPROL XL PO SCH (08:37)
[2020-04-04] MEDS: JANUVIA PO SCH (08:41)
[2020-04-04] MEDS: LEVEMIR SC SCH (08:41)
[2020-04-04] MEDS: K-DUR TAB 20 MEQ PO SCH (08:41)
[2020-04-04] MEDS: FORTAZ or TAZICEF VIAL INJ 1 G in NS 100 ML IV + SPIKE MINIBAG* 100 ML IV SCH ×2 (10:01→21:00)
[2020-04-04] MEDS: ULTRAM PO PRN ×2 (11:25→20:00)
[2020-04-04] MEDS: HumuLIN R SC PRN (12:59)
[2020-04-04] MEDS: PHENERGAN INJ 25 MG IM PRN ×2 (16:39→22:38)
[2020-04-04] MEDS ORDERED: APRESOLINE TAB 25 MG ONE (17:27)
[2020-04-04] MEDS: APRESOLINE TAB 25 MG PO SCH (17:40)
[2020-04-04] MEDS ORDERED: ZESTRIL TAB 20 MG ONE (20:00)
[2020-04-04] MEDS: SNACK - Diabetic Appropriate PO SCH (20:00)
[2020-04-04] MEDS: TRAVATAN Z EACHEYE SCH (21:00)
[2020-04-04] MEDS: ZESTRIL TAB 20 MG PO SCH (21:00)
[2020-04-04] MEDS: LIPITOR TAB 20 MG PO SCH (21:00)
[2020-04-04] MEDS: XOPENEX 1.25 MG/3 ML NEBULE NEB SCH (21:30)
[2020-04-04] MEDS: ROBITUSSIN DM PO SCH (22:12)
[2020-04-05] MEDS: APRESOLINE TAB 25 MG PO SCH ×4 (00:29→22:00)
[2020-04-05 05:48] LABS: BASOPHILS % (AUTO) 0.4 % (0.2-1.0); EOSINOPHILS # (AUTO) 0.1 x10^3/uL (0.0-0.2); EOSINOPHILS % (AUTO) 0.8 % (0.9-2.9); HEMOGLOBIN 10.6 g/dL (12.0-16.0); LYMPHOCYTES # (AUTO) 0.6 X10^3/uL (1.3-2.9); LYMPHOCYTES % (AUTO) 7.3 % (21.0-51.0); MEAN CORPUSCULAR HEMOGLOBIN 31.3 pg (27.0-34.0); MEAN CORPUSCULAR HGB CONC 35.2 g/dL (33.0-35.0); MEAN CORPUSCULAR VOLUME 88.9 fL (80.0-100.0); MEAN PLATELET VOLUME 8.2 fL (7.4-11.0); MONOCYTES % (AUTO) 13.6 % (0.0-13.0); NEUTROPHILS % (AUTO) 77.9 % (42.0-75.0); PLATELET COUNT 184 X10^3/uL (150.0-450.0); RED BLOOD COUNT 3.38 X10^6/uL (3.5-5.4); RED CELL DISTRIBUTION WIDTH 15.2 % (11.6-16.5); WHITE BLOOD COUNT 7.7 X10^3/uL (3.6-10.0)
[2020-04-05] MEDS: ARTIFICIAL TEARS DROPS EACHEYE SCH ×3 (05:53→22:00)
[2020-04-05] MEDS: NUT TX GLUC INTOL LAC FREE SOY PO SCH ×3 (05:53→22:00)
[2020-04-05] MEDS: NS 1000 ML 1,000 ML IV SCH ×4 (05:58→23:30)
[2020-04-05 06:11] LABS: ALANINE AMINOTRANSFERASE 21 Units/L (12-78); ALBUMIN 2.1 g/dL (3.4-5.0); ALKALINE PHOSPHATASE 228 Units/L (46-116); ASPARTATE AMINO TRANSFERASE 29 Units/L (15-37); BLOOD UREA NITROGEN 18 mg/dL (7-18); CALCIUM 8.3 mg/dL (8.5-10.1); CARBON DIOXIDE 25.6 mmol/L (21-32); CHLORIDE 99 mmol/L (98-107); COR CA(FOR HYPOALB) 9.8 mg/dL (8.5-10.1); COR NA(FOR HYPERGLY) 134 mmol/L (136-145); CREATININE 1.05 mg/dL (0.55-1.02); SODIUM 133 mmol/L (136-145); eGFR NON BLACK RACES 53 (>60)
[2020-04-05] MEDS: XOPENEX 1.25 MG/3 ML NEBULE NEB SCH ×3 (06:30→22:00)
--- NOTE | 2020-04-05 07:55 | RAD ---
HISTORYSOBSTUDYCHEST, 1 [id number]/02/2020FINDINGSStable cardiomediastinal silhouette with cardiomegaly. Stable increased interstitial densities. No consolidation, sizable effusion, or visible pneumothorax. No acute osseous finding.IMPRESSIONNo significant change.Electronically signed by: Yosef Diehl (Apr 05, 2020 07:53:51)
[2020-04-05] MEDS ORDERED: ZESTRIL TAB 20 MG ONE ×2 (08:38→19:25)
[2020-04-05] MEDS ORDERED: CONSULT PHARMACY - ANTIBIOTIC XX SCH (09:00)
[2020-04-05] MEDS ORDERED: TOPROL XL PO ONE (09:05)
[2020-04-05] MEDS: ULTRAM PO PRN ×2 (09:18→21:00)
[2020-04-05] MEDS: TOPROL XL PO SCH (09:20)
[2020-04-05] MEDS: COLACE CAP 100 MG PO SCH ×2 (09:20→21:00)
[2020-04-05] MEDS: ELIQUIS PO SCH ×2 (09:20→21:00)
[2020-04-05] MEDS: SYNTHROID 75 mcg TAB PO SCH (09:21)
[2020-04-05] MEDS: K-DUR TAB 20 MEQ PO SCH (09:21)
[2020-04-05] MEDS: JANUVIA PO SCH (09:22)
[2020-04-05] MEDS: ZESTRIL TAB 20 MG PO SCH ×2 (09:22→21:00)
[2020-04-05] MEDS: ROBITUSSIN DM PO SCH ×4 (09:22→23:27)
[2020-04-05] MEDS: LEVAQUIN PREMIX IV 250 MG 250 MG/50 ML BAG IV SCH (09:23)
[2020-04-05] MEDS: LEVEMIR SC SCH (09:23)
[2020-04-05] MEDS: FORTAZ or TAZICEF VIAL INJ 1 G in NS 100 ML IV + SPIKE MINIBAG* 100 ML IV SCH (09:23)
[2020-04-05] MEDS: LASIX IVP SCH ×2 (10:00→17:57)
[2020-04-05] MEDS: INVANZ INJ 1 GM VIAL 1 GM in NS 100 ML IV + SPIKE MINIBAG* 100 ML IV SCH (10:06)
[2020-04-05] MEDS: ZOFRAN INJ 4 MG VIAL IVP PRN ×2 (13:15→21:00)
[2020-04-05] MEDS: PHENERGAN INJ 25 MG IM PRN (14:22)
[2020-04-05] MEDS ORDERED: CATAPRES-TTS-3 TD SCH (16:00)
[2020-04-05] MEDS: SNACK - Diabetic Appropriate PO SCH (20:00)
[2020-04-05] MEDS: LIPITOR TAB 20 MG PO SCH (21:00)
[2020-04-05] MEDS: CHECK PATCH XX SCH (21:00)
[2020-04-05] MEDS: TRAVATAN Z EACHEYE SCH (21:00)
[2020-04-06] MEDS: PHENERGAN INJ 25 MG IM PRN
[2020-04-06 05:11] LABS: BASOPHILS % (AUTO) 0.6 % (0.2-1.0); EOSINOPHILS # (AUTO) 0.2 x10^3/uL (0.0-0.2); EOSINOPHILS % (AUTO) 3.1 % (0.9-2.9); HEMATOCRIT 32.5 % (36.0-47.0); HEMOGLOBIN 10.8 g/dL (12.0-16.0); LYMPHOCYTES # (AUTO) 0.5 X10^3/uL (1.3-2.9); LYMPHOCYTES % (AUTO) 6.8 % (21.0-51.0); MEAN CORPUSCULAR HEMOGLOBIN 29.7 pg (27.0-34.0); MEAN CORPUSCULAR HGB CONC 33.3 g/dL (33.0-35.0); MEAN CORPUSCULAR VOLUME 89.1 fL (80.0-100.0); MEAN PLATELET VOLUME 7.8 fL (7.4-11.0); MONOCYTES % (AUTO) 13.4 % (0.0-13.0); NEUTROPHILS # (AUTO) 5.6 x10^3/uL (2.2-4.8); NEUTROPHILS % (AUTO) 76.1 % (42.0-75.0); PLATELET COUNT 245 X10^3/uL (150.0-450.0); RED BLOOD COUNT 3.64 X10^6/uL (3.5-5.4); RED CELL DISTRIBUTION WIDTH 15.4 % (11.6-16.5); WHITE BLOOD COUNT 7.4 X10^3/uL (3.6-10.0)
[2020-04-06 05:27] LABS: ALANINE AMINOTRANSFERASE 27 Units/L (12-78); ALBUMIN 2.3 g/dL (3.4-5.0); ALKALINE PHOSPHATASE 287 Units/L (46-116); ASPARTATE AMINO TRANSFERASE 37 Units/L (15-37); BLOOD UREA NITROGEN 13 mg/dL (7-18); CALCIUM 8.6 mg/dL (8.5-10.1); CARBON DIOXIDE 30.2 mmol/L (21-32); CHLORIDE 98 mmol/L (98-107); COR NA(FOR HYPERGLY) 136 mmol/L (136-145); CREATININE 1.01 mg/dL (0.55-1.02); SODIUM 135 mmol/L (136-145); TOTAL PROTEIN 6.3 g/dL (6.4-8.2); eGFR NON BLACK RACES 56 (>60)
[2020-04-06] MEDS: XOPENEX 1.25 MG/3 ML NEBULE NEB SCH ×4 (06:00→21:15)
[2020-04-06] MEDS: ARTIFICIAL TEARS DROPS EACHEYE SCH ×3 (06:00→21:05)
[2020-04-06] MEDS: NUT TX GLUC INTOL LAC FREE SOY PO SCH ×3 (06:00→21:06)
[2020-04-06] MEDS: APRESOLINE TAB 25 MG PO SCH ×3 (06:00→21:05)
[2020-04-06] MEDS: CHECK PATCH XX SCH ×2 (09:08→20:40)
[2020-04-06] MEDS ORDERED: ZESTRIL TAB 20 MG ONE ×2 (09:11→20:09)
[2020-04-06] MEDS: COLACE CAP 100 MG PO SCH ×2 (09:15→20:40)
[2020-04-06] MEDS: INVANZ INJ 1 GM VIAL 1 GM in NS 100 ML IV + SPIKE MINIBAG* 100 ML IV SCH (09:16)
[2020-04-06] MEDS: ELIQUIS PO SCH ×2 (09:16→20:40)
[2020-04-06] MEDS: JANUVIA PO SCH (09:17)
[2020-04-06] MEDS: K-DUR TAB 20 MEQ PO SCH (09:17)
[2020-04-06] MEDS: SYNTHROID 75 mcg TAB PO SCH (09:17)
[2020-04-06] MEDS: ROBITUSSIN DM PO SCH ×4 (09:17→20:41)
[2020-04-06] MEDS: ZESTRIL TAB 20 MG PO SCH ×2 (09:18→20:39)
[2020-04-06] MEDS: TOPROL XL PO SCH (09:18)
[2020-04-06] MEDS: LEVEMIR SC SCH (09:18)
[2020-04-06] MEDS: LASIX IVP SCH ×2 (09:24→16:17)
[2020-04-06] MEDS: HumuLIN R SC PRN ×2 (10:47→16:13)
[2020-04-06] MEDS: NS 1000 ML 1,000 ML IV SCH (13:07)
[2020-04-06] MEDS ORDERED: K-DUR TAB 20 MEQ PO PRN (15:35)
[2020-04-06] MEDS ORDERED: POTASSIUM CHL 40 MEQ/NS 0.45% 500 ML IV PRN (15:35)
[2020-04-06] MEDS ORDERED: POTASSIUM CHLORIDE LIQ 20 MEQ UDC PO PRN (15:35)
[2020-04-06] MEDS ORDERED: K-RIDER 10 MEQ/NS 100 ML 10 MEQ/100 ML BAG IV PRN (15:35)
[2020-04-06] MEDS ORDERED: KLOR-CON PO PRN (15:35)
[2020-04-06] MEDS ORDERED: MICRO K EXTEN CAP 10 MEQ PO PRN (15:35)
[2020-04-06] MEDS ORDERED: POTASSIUM CHL 60 MEQ/NS 0.45% 500 ML IV PRN (15:35)
[2020-04-06] MEDS ORDERED: MICRO K EXTEN CAP 10 MEQ PO ONE (15:42)
[2020-04-06] MEDS ORDERED: MAG-OX TAB ONE (16:16)
[2020-04-06] MEDS: MAG-OX TAB PO SCH (16:18)
[2020-04-06] MEDS ORDERED: BUTT CREAM (COMPOUND) ONE ×2 (18:22→18:24)
[2020-04-06] MEDS: ZOFRAN INJ 4 MG VIAL IVP PRN (18:29)
[2020-04-06] MEDS: BUTT CREAM (COMPOUND) TOP PRN (18:30)
[2020-04-06] MEDS: SNACK - Diabetic Appropriate PO SCH (20:39)
[2020-04-06] MEDS: LIPITOR TAB 20 MG PO SCH (20:40)
[2020-04-06] MEDS: TRAVATAN Z EACHEYE SCH (20:41)
[2020-04-06] MEDS: ULTRAM PO PRN (21:03)
[2020-04-07] MEDS: NS 1000 ML 1,000 ML IV SCH ×3 (02:24→17:01)
[2020-04-07 05:32] LABS: BASOPHILS % (AUTO) 0.7 % (0.2-1.0); EOSINOPHILS # (AUTO) 0.4 x10^3/uL (0.0-0.2); EOSINOPHILS % (AUTO) 5.6 % (0.9-2.9); HEMOGLOBIN 9.8 g/dL (12.0-16.0); LYMPHOCYTES # (AUTO) 0.8 X10^3/uL (1.3-2.9); MEAN CORPUSCULAR HEMOGLOBIN 30.4 pg (27.0-34.0); MEAN CORPUSCULAR HGB CONC 33.6 g/dL (33.0-35.0); MEAN CORPUSCULAR VOLUME 90.4 fL (80.0-100.0); MONOCYTES % (AUTO) 15.2 % (0.0-13.0); NEUTROPHILS # (AUTO) 4.6 x10^3/uL (2.2-4.8); NEUTROPHILS % (AUTO) 66.5 % (42.0-75.0); PLATELET COUNT 238 X10^3/uL (150.0-450.0); RED BLOOD COUNT 3.21 X10^6/uL (3.5-5.4); RED CELL DISTRIBUTION WIDTH 15.5 % (11.6-16.5); WHITE BLOOD COUNT 6.8 X10^3/uL (3.6-10.0)
[2020-04-07 05:41] LABS: ALANINE AMINOTRANSFERASE 29 Units/L (12-78); ALKALINE PHOSPHATASE 264 Units/L (46-116); ASPARTATE AMINO TRANSFERASE 35 Units/L (15-37); BLOOD UREA NITROGEN 21 mg/dL (7-18); CALCIUM 7.9 mg/dL (8.5-10.1); CHLORIDE 104 mmol/L (98-107); COR CA(FOR HYPOALB) 9.5 mg/dL (8.5-10.1); CREATININE 1.15 mg/dL (0.55-1.02); MAGNESIUM 1.4 mg/dL (1.7-2.9); SODIUM 139 mmol/L (136-145); TOTAL PROTEIN 5.4 g/dL (6.4-8.2); eGFR NON BLACK RACES 48 (>60)
[2020-04-07] MEDS: ARTIFICIAL TEARS DROPS EACHEYE SCH ×3 (05:42→21:03)
[2020-04-07] MEDS: APRESOLINE TAB 25 MG PO SCH ×3 (05:42→21:03)
[2020-04-07] MEDS: NUT TX GLUC INTOL LAC FREE SOY PO SCH ×3 (05:43→21:03)
[2020-04-07] MEDS: XOPENEX 1.25 MG/3 ML NEBULE NEB SCH ×4 (06:00→21:10)
[2020-04-07] MEDS: MAG-OX TAB PO SCH (06:02)
[2020-04-07] MEDS: CHECK PATCH XX SCH ×2 (08:15→19:59)
[2020-04-07] MEDS ORDERED: ZESTRIL TAB 20 MG ONE ×2 (08:31→20:24)
[2020-04-07] MEDS: COLACE CAP 100 MG PO SCH ×2 (08:50→20:44)
[2020-04-07] MEDS: ELIQUIS PO SCH ×2 (08:50→20:44)
[2020-04-07] MEDS: TOPROL XL PO SCH (08:51)
[2020-04-07] MEDS: ZESTRIL TAB 20 MG PO SCH ×2 (08:51→20:43)
[2020-04-07] MEDS: K-DUR TAB 20 MEQ PO SCH (08:51)
[2020-04-07] MEDS: SYNTHROID 75 mcg TAB PO SCH (08:52)
[2020-04-07] MEDS: JANUVIA PO SCH (08:52)
[2020-04-07] MEDS: INVANZ INJ 1 GM VIAL 1 GM in NS 100 ML IV + SPIKE MINIBAG* 100 ML IV SCH (08:52)
[2020-04-07] MEDS: ROBITUSSIN DM PO SCH ×4 (08:53→20:44)
[2020-04-07] MEDS: LASIX IVP SCH ×2 (09:06→17:01)
[2020-04-07] MEDS: LEVEMIR SC SCH (10:55)
[2020-04-07] MEDS: SNACK - Diabetic Appropriate PO SCH (19:59)
[2020-04-07] MEDS: LIPITOR TAB 20 MG PO SCH (20:44)
[2020-04-07] MEDS: TRAVATAN Z EACHEYE SCH (20:44)
[2020-04-07] MEDS: ULTRAM PO PRN (20:45)
[2020-04-08] MEDS: ARTIFICIAL TEARS DROPS EACHEYE SCH ×3 (05:26→21:28)
[2020-04-08] MEDS: APRESOLINE TAB 25 MG PO SCH ×3 (05:26→21:28)
[2020-04-08] MEDS: NUT TX GLUC INTOL LAC FREE SOY PO SCH ×3 (05:26→21:28)
[2020-04-08 05:47] LABS: BASOPHILS % (AUTO) 0.4 % (0.2-1.0); EOSINOPHILS # (AUTO) 0.4 x10^3/uL (0.0-0.2); EOSINOPHILS % (AUTO) 6.6 % (0.9-2.9); HEMATOCRIT 28.7 % (36.0-47.0); HEMOGLOBIN 9.9 g/dL (12.0-16.0); LYMPHOCYTES # (AUTO) 1.1 X10^3/uL (1.3-2.9); LYMPHOCYTES % (AUTO) 16.7 % (21.0-51.0); MEAN CORPUSCULAR HGB CONC 34.5 g/dL (33.0-35.0); MONOCYTES # (AUTO) 0.8 x10^3/uL (0.3-0.8); MONOCYTES % (AUTO) 12.6 % (0.0-13.0); NEUTROPHILS % (AUTO) 63.7 % (42.0-75.0); PLATELET COUNT 195 X10^3/uL (150.0-450.0); RED BLOOD COUNT 3.19 X10^6/uL (3.5-5.4); RED CELL DISTRIBUTION WIDTH 15.8 % (11.6-16.5); WHITE BLOOD COUNT 6.3 X10^3/uL (3.6-10.0)
[2020-04-08 05:57] LABS: ALANINE AMINOTRANSFERASE 35 Units/L (12-78); ALKALINE PHOSPHATASE 287 Units/L (46-116); ASPARTATE AMINO TRANSFERASE 48 Units/L (15-37); BLOOD UREA NITROGEN 21 mg/dL (7-18); CALCIUM 7.7 mg/dL (8.5-10.1); CARBON DIOXIDE 26.7 mmol/L (21-32); CHLORIDE 99 mmol/L (98-107); COR CA(FOR HYPOALB) 9.3 mg/dL (8.5-10.1); CREATININE 1.06 mg/dL (0.55-1.02); SODIUM 133 mmol/L (136-145); TOTAL PROTEIN 5.5 g/dL (6.4-8.2); eGFR NON BLACK RACES 53 (>60)
[2020-04-08] MEDS: MAG-OX TAB PO SCH (06:03)
[2020-04-08] MEDS: NS 1000 ML 1,000 ML IV SCH ×2 (06:03→20:49)
[2020-04-08] MEDS: BUTT CREAM (COMPOUND) TOP PRN (06:08)
[2020-04-08] MEDS: XOPENEX 1.25 MG/3 ML NEBULE NEB SCH ×3 (06:17→20:40)
--- NOTE | 2020-04-08 08:48 | PCM.PROG ---
Progress Note - Progress Note for Day of Date of Exam: 04/03/20 - Subjective Subjective: IS BEING TREATED FOR SEPSIS, URINARY TRACT INFECTION, CHF, ACUTE HYPONATREMIA, AND HYPOTENSION. TODAY, SHE IS ALERT AND ORIENTED, LYING IN BED ON MORNING ROUNDS. SHE REPORTS SHORTNESS OF BREATH AND WEAKNESS THIS MORNING. SHE HAS BEEN FEBRILE THROUGHOUT THE NIGHT. ON EXAMINATION, HEART IS REGULAR IN RATE AND RHYTHM. BILATERAL LUNGS ARE NOTED WITH DIMINISHED LUNG SOUNDS THROUGHOUT. ABDOMEN IS ROUND, SOFT, AND NOTED WITH SUPRAPUBIC TENDERNESS TO PALPATION. HER VITALS THIS MORNING ARE: 98.9-63-22-99%NC-133/62. LABS WERE OBTAINED. ABNORMAL LAB VALUES INCLUDE THE FOLLOWING: RBC 3.16, HGB 9.8, HCT 28.2, SODIUM 127, CHLORIDE 97, BUN 30, CREATININE 1.37, GLUCOSE 127, CALCIUM 8.2, ALK PHOS 150, CRP 162.60, TOTAL PROTEIN 5.9, ALBUMIN 2.3. BLOOD AND URINE CULTURES ARE PENDING. A CHEST XRAY WAS OBTAINED THIS MORNING AND REVEALED: Overall there is interval development of worsening increased interstitial lung markings throughout the right and left lung. This could represent pulmonary edema or progressively worsening viral interstitial pneumonia. ALTHOUGH HER RAPID COVID-19 WAS NEGATIVE, WE WILL PLACE PATIENT IN ISOLATION TODAY. WE WILL CHANGE HER ANTIBIOTICS TO FORTAZ IV AND LEVAQUIN IV. WE WILL OBTAIN FERRITIN AND CRP LEVELS. WE WILL RESWAB HER FOR COVID-19 ON WEDNESDAY. OTHERWISE, WE WILL FOLLOW UP WITH AM LABS AND CONTINUE TO MONITOR. - Past Medical Family Social History Allergies: Allergies tuberculin,PPD,multi-puncture Allergy (Verified 03/10/20 13:33) - Vital Signs and I&O's Vital Signs: Temperature 98.0 F Pulse Rate [Apical] 86 Pulse Rate 69 Respiratory Rate 20 Blood Pressure [Right Arm] 141/60 Blood Pressure [Left Arm] 134/80 Blood Pressure 80/48 O2 Sat by Pulse Oximetry 96 Intake and Output: Intake & Output 04/05/20 04/06/20 04/07/20 04/08/20 11:59 11:59 11:59 11:59 Intake Total 2747 / 2747 3080 / 3080 3600 / 3600 4260 / 4260 Balance 2747 / 2747 3080 / 3080 3600 / 3600 4260 / 4260 - Physical Exam Oriented: Normal Eyes: Normal Ear: Normal Nose: Normal Throat: Normal Respiratory: Generalized, Diminished Cardiovascular: Normal : Normal Auscultation: Bowel Sounds: Normal Palpation: Normal Tenderness: Normal Skin: Normal Musculoskeletal: Normal Psychiatric: Normal Mood Description: Calm Affect: Normal Speech Pattern: Clear, Appropriate - Laboratory and Diagnostics Result Diagrams: 04/08/20 05:05 04/08/20 05:05 Labs: 04/01/20 20:23 Blood Blood Culture - Final Escherichia Coli 04/01/20 20:15 Blood Blood Culture - Final Escherichia Coli 04/02/20 01:40 Urine,Clean Catch Urine Culture - Final Escherichia Coli Laboratory WBC 6.3 X10^3/uL (3.6-10.0) 04/08/20 05:05 RBC 3.19 X10^6/uL (3.5-5.4) L 04/08/20 05:05 Hgb 9.9 g/dL (12.0-16.0) L 04/08/20 05:05 Hct 28.7 % (36.0-47.0) L 04/08/20 05:05 MCV 90.0 fL (80.0-100.0) 04/08/20 05:05 MCH 31.0 pg (27.0-34.0) 04/08/20 05:05 MCHC 34.5 g/dL (33.0-35.0) 04/08/20 05:05 RDW 15.8 % (11.6-16.5) 04/08/20 05:05 Plt Count 195 X10^3/uL (150.0-450.0) 04/08/20 05:05 MPV 8.0 fL (7.4-11.0) 04/08/20 05:05 Neut % (Auto) 63.7 % (42.0-75.0) 04/08/20 05:05 Lymph % (Auto) 16.7 % (21.0-51.0) L 04/08/20 05:05 [place] % (Auto) 12.6 % (0.0-13.0) 04/08/20 05:05 Eos % (Auto) 6.6 % (0.9-2.9) H 04/08/20 05:05 Baso % (Auto) 0.4 % (0.2-1.0) 04/08/20 05:05 Neut # (Auto) 4.0 x10^3/uL (2.2-4.8) 04/08/20 05:05 Lymph # (Auto) 1.1 X10^3/uL (1.3-2.9) L 04/08/20 05:05 [place] # (Auto) 0.8 x10^3/uL (0.3-0.8) 04/08/20 05:05 Eos # (Auto) 0.4 x10^3/uL (0.0-0.2) H 04/08/20 05:05 Baso # (Auto) 0.0 X10^3/uL (0.0-0.1) 04/08/20 05:05 Absolute Nucleated RBC 0.1 /100WBC 04/08/20 05:05 Sodium 133 mmol/L (136-145) L 04/08/20 05:05 Corrected Sodium TNP 04/08/20 05:05 Potassium 4.0 mmol/L (3.5-5.1) 04/08/20 05:05 Chloride 99 mmol/L (98-107) 04/08/20 05:05 Carbon Dioxide 26.7 mmol/L (21-32) 04/08/20 05:05 BUN 21 mg/dL (7-18) H 04/08/20 05:05 Creatinine 1.06 mg/dL (0.55-1.02) H 04/08/20 05:05 Est GFR (MDRD) Af Amer > 60 (>60) 04/08/20 05:05 Est GFR (MDRD) Non-Af 53 (>60) L 04/08/20 05:05 Glucose 96 mg/dL (65-99) 04/08/20 05:05 POC Glucose (mg/dL) 190 mg/dL (65-99) H 04/03/20 19:45 Lactic Acid 1.0 mmol/L (0.4-2.0) 04/01/20 18:04 Calcium 7.7 mg/dL (8.5-10.1) L 04/08/20 05:05 Corrected Calcium 9.3 mg/dL (8.5-10.1) 04/08/20 05:05 Magnesium 1.4 mg/dL (1.7-2.9) L 04/07/20 04:33 Ferritin 208 ng/mL (8-252) 04/08/20 05:05 Total Bilirubin 0.50 mg/dL (0.2-1.0) 04/08/20 05:05 AST 48 Units/L (15-37) H 04/08/20 05:05 ALT 35 Units/L (12-78) 04/08/20 05:05 Alkaline Phosphatase 287 Units/L (46-116) H 04/08/20 05:05 Lactate Dehydrogenase 222 Units/L (81-234) 04/03/20 05:08 Creatine Kinase 19 Units/L (26-192) L 04/01/20 18:04 CK-MB (CK-2) < 1.0 ng/mL (0-4.0) 04/01/20 18:04 CK/CKMB % Calc 5.3 % (<4) 04/01/20 18:04 Troponin I < 0.02 ng/mL (0-1.5) 04/01/20 18:04 C-Reactive Protein 58.20 mg/L (0-3.0) H 04/08/20 05:05 B-Natriuretic Peptide 1110 pg/mL (0-79) H* 04/01/20 18:11 Total Protein 5.5 g/dL (6.4-8.2) L 04/08/20 05:05 Albumin 2.0 g/dL (3.4-5.0) L 04/08/20 05:05 Globulin 3.5 g/dL (2.5-4.5) 04/08/20 05:05 Albumin/Globulin Ratio 0.6 Ratio (1.1-2.1) L 04/08/20 05:05 Specimen Type Clean catch urine 04/02/20 01:40 Urine Color Yellow (YELLOW) 04/02/20 01:40 Urine Appearance Hazy (CLEAR) 04/02/20 01:40 Urine pH 5.0 (5.0 - 8.0) 04/02/20 01:40 Ur Specific [place] 1.020 (1.000-1.030) 04/02/20 01:40 Urine Protein 3+ (NEGATIVE) 04/02/20 01:40 Urine Glucose (UA) Negative (NEGATIVE) 04/02/20 01:40 Urine Ketones Negative (NEGATIVE) 04/02/20 01:40 Urine Occult Blood 2+ (NEGATIVE) 04/02/20 01:40 Urine Nitrite Negative (NEGATIVE) 04/02/20 01:40 Urine Bilirubin Negative (NEGATIVE) 04/02/20 01:40 Urine Urobilinogen Normal (NORMAL) 04/02/20 01:40 Ur Leukocyte Esterase 3+ (NEGATIVE) 04/02/20 01:40 Urine RBC None seen /HPF (0-3) 04/02/20 01:40 Urine WBC Tntc /HPF (0-5) A 04/02/20 01:40 Ur Squamous Epith Cells Numerous /HPF (NEGATIVE) 04/02/20 01:40 Urine Bacteria 3+ /HPF (NEGATIVE) 04/02/20 01:40 Ur Culture Indicated? Yes/culture set up 04/02/20 01:40 SARS-CoV-2 (PCR) Negative (NEGATIVE) 04/01/20 20:02 - Plan (1) Sepsis Status: Acute Qualifiers: Sepsis type: sepsis due to unspecified organism Sepsis acute organ dysfunction status: unspecified Qualified Code(s): A41.9 - Sepsis, unspecified organism Plan: NS AT 75 ML/HR, FORTAZ IV, LEVAQUIN IV, HUMULIN R SLIDING SCALE, LASIX 20MG IV Q12H, AND HER HOME MEDICATIONS WERE RESUMED WITH THE EXCEPTION OF HER P ATCHES (2) Urinary tract infection Status: Acute Qualifiers: Urinary tract infection type: acute cystitis Hematuria presence: without hematuria Qualified Code(s): N30.00 - Acute cystitis without hematuria (3) CHF (congestive heart failure) Status: Chronic Qualifiers: Heart failure type: unspecified Heart failure chronicity: acute on chronic Qualified Code(s): I50.9 - Heart failure, unspecified (4) Acute hyponatremia Status: Acute (5) Hypotension Status: Acute Qualifiers: Hypotension type: unspecified hypotension type Qualified Code(s): I95.9 - Hypotension, unspecified (6) Diabetes mellitus, type 2 Status: Chronic Qualifiers: Diabetes mellitus lobsterman insulin use: with lobsterman use Diabetes mellitus complication status: without complication Qualified Code(s): E11.9 - Type 2 diabetes mellitus without complications; Z79.4 - penitentiary (current) use of insulin
[2020-04-08] MEDS ORDERED: ZESTRIL TAB 20 MG ONE ×2 (09:28→20:19)
[2020-04-08] MEDS: CHECK PATCH XX SCH ×2 (09:41→20:48)
[2020-04-08] MEDS: COLACE CAP 100 MG PO SCH ×2 (09:45→20:48)
[2020-04-08] MEDS: LEVEMIR SC SCH (09:45)
[2020-04-08] MEDS: INVANZ INJ 1 GM VIAL 1 GM in NS 100 ML IV + SPIKE MINIBAG* 100 ML IV SCH (09:46)
[2020-04-08] MEDS: ELIQUIS PO SCH ×2 (09:47→20:48)
[2020-04-08] MEDS: JANUVIA PO SCH (09:47)
[2020-04-08] MEDS: K-DUR TAB 20 MEQ PO SCH (09:47)
[2020-04-08] MEDS: ROBITUSSIN DM PO SCH ×4 (09:48→20:49)
[2020-04-08] MEDS: SYNTHROID 75 mcg TAB PO SCH (09:49)
[2020-04-08] MEDS: ZESTRIL TAB 20 MG PO SCH ×2 (09:49→20:48)
[2020-04-08] MEDS: TOPROL XL PO SCH (09:50)
[2020-04-08] MEDS: LASIX IVP SCH ×2 (09:52→16:46)
--- NOTE | 2020-04-08 10:21 | RAD ---
HISTORYSOB, FEVERSTUDYCHEST, 1 VIEWCOMPARISONJuly 2019FINDINGSThe trachea is midline. The cardiac silhouette is enlarged. Infiltrate is noted within the right lower lobe. Hazy opacification within the left lower lobe may in part be due to overlying soft tissues however atelectasis, infiltrate, and/or small effusion cannot be excluded. Elevation of right hemidiaphragm is again noted.IMPRESSIONCardiomegaly.Right lower lobe infiltrate with questionable left basilar airspace disease as noted above.Electronically signed by: OLEG WOLFE (Apr 08, 2020 10:20:00)
[2020-04-08] MEDS: SNACK - Diabetic Appropriate PO SCH (19:41)
[2020-04-08] MEDS: LIPITOR TAB 20 MG PO SCH (20:49)
[2020-04-08] MEDS: TRAVATAN Z EACHEYE SCH (20:49)
[2020-04-09] MEDS: NS 1000 ML 1,000 ML IV SCH ×2 (04:13→11:46)
[2020-04-09 05:38] LABS: BASOPHILS % (AUTO) 0.7 % (0.2-1.0); EOSINOPHILS # (AUTO) 0.3 x10^3/uL (0.0-0.2); HEMATOCRIT 26.7 % (36.0-47.0); HEMOGLOBIN 9.2 g/dL (12.0-16.0); LYMPHOCYTES # (AUTO) 0.7 X10^3/uL (1.3-2.9); LYMPHOCYTES % (AUTO) 10.5 % (21.0-51.0); MEAN CORPUSCULAR HEMOGLOBIN 31.2 pg (27.0-34.0); MEAN CORPUSCULAR HGB CONC 34.5 g/dL (33.0-35.0); MEAN CORPUSCULAR VOLUME 90.4 fL (80.0-100.0); MEAN PLATELET VOLUME 8.1 fL (7.4-11.0); MONOCYTES # (AUTO) 0.6 x10^3/uL (0.3-0.8); MONOCYTES % (AUTO) 9.8 % (0.0-13.0); NEUTROPHILS # (AUTO) 4.7 x10^3/uL (2.2-4.8); PLATELET COUNT 196 X10^3/uL (150.0-450.0); RED BLOOD COUNT 2.95 X10^6/uL (3.5-5.4); RED CELL DISTRIBUTION WIDTH 15.9 % (11.6-16.5); WHITE BLOOD COUNT 6.3 X10^3/uL (3.6-10.0)
[2020-04-09] MEDS: XOPENEX 1.25 MG/3 ML NEBULE NEB SCH ×2 (05:55→14:30)
[2020-04-09] MEDS: APRESOLINE TAB 25 MG PO SCH ×2 (05:58→13:24)
[2020-04-09] MEDS: NUT TX GLUC INTOL LAC FREE SOY PO SCH ×2 (05:58→13:25)
[2020-04-09] MEDS: ARTIFICIAL TEARS DROPS EACHEYE SCH ×2 (05:58→13:24)
[2020-04-09 05:59] LABS: ALANINE AMINOTRANSFERASE 31 Units/L (12-78); ALBUMIN 1.9 g/dL (3.4-5.0); ALKALINE PHOSPHATASE 273 Units/L (46-116); ASPARTATE AMINO TRANSFERASE 33 Units/L (15-37); BLOOD UREA NITROGEN 18 mg/dL (7-18); CALCIUM 7.6 mg/dL (8.5-10.1); CARBON DIOXIDE 27.7 mmol/L (21-32); CHLORIDE 100 mmol/L (98-107); COR CA(FOR HYPOALB) 9.3 mg/dL (8.5-10.1); SODIUM 133 mmol/L (136-145); TOTAL PROTEIN 5.3 g/dL (6.4-8.2); eGFR NON BLACK RACES > 60 (>60)
[2020-04-09] MEDS: MAG-OX TAB PO SCH (06:00)
--- NOTE | 2020-04-09 06:04 | RAD ---
Chest AP portableIndication: DyspneaComparison April 08, 2020FINDINGSMonitor leads obscure moderate detail. There is cardiomegaly without pneumothorax. No new consolidation seen.IMPRESSIONCardiomegaly, similar to the previous day's study.Electronically signed by: STEVEN PHILIP (Apr 09, 2020 06:03:08)
[2020-04-09] MEDS ORDERED: ZESTRIL TAB 20 MG ONE (08:50)
[2020-04-09] MEDS: COLACE CAP 100 MG PO SCH (09:03)
[2020-04-09] MEDS: ELIQUIS PO SCH (09:03)
[2020-04-09] MEDS: K-DUR TAB 20 MEQ PO SCH (09:04)
[2020-04-09] MEDS: INVANZ INJ 1 GM VIAL 1 GM in NS 100 ML IV + SPIKE MINIBAG* 100 ML IV SCH (09:04)
[2020-04-09] MEDS: JANUVIA PO SCH (09:04)
[2020-04-09] MEDS: LASIX IVP SCH (09:05)
[2020-04-09] MEDS: LEVEMIR SC SCH (09:05)
[2020-04-09] MEDS: ROBITUSSIN DM PO SCH ×2 (09:06→13:24)
[2020-04-09] MEDS: SYNTHROID 75 mcg TAB PO SCH (09:06)
[2020-04-09] MEDS: ZESTRIL TAB 20 MG PO SCH (09:06)
[2020-04-09] MEDS: TOPROL XL PO SCH (09:06)
[2020-04-09] MEDS: CHECK PATCH XX SCH (09:35)
--- NOTE | 2020-04-09 11:17 | PCM.PROG ---
Progress Note - Progress Note for Day of Date of Exam: 04/08/20 - Subjective Subjective: IS BEING TREATED FOR SEPSIS, URINARY TRACT INFECTION, CHF, ACUTE HYPONATREMIA, AND HYPOTENSION. TODAY, SHE IS ALERT AND ORIENTED, LYING IN BED ON MORNING ROUNDS. SHE REPORTS WEAKNESS THIS MORNING. SHE HAS BEEN AFEBRILE FOR SEVERAL DAYS. ON EXAMINATION, HEART IS REGULAR IN RATE AND RHYTHM. BILATERAL LUNGS ARE NOTED WITH DIMINISHED LUNG SOUNDS THROUGHOUT. ABDOMEN IS ROUND, SOFT, AND NOTED WITH SUPRAPUBIC TENDERNESS TO PALPATION. HER VITALS THIS MORNING ARE: 98.9-83-22-94%NC-117/70. LABS WERE OBTAINED. ABNORMAL LAB VALUES INCLUDE THE FOLLOWING: RBC 3.19, HGB 9.9, HCT 28.7, SODIUM 133, BUN 21, CREATININE 1.06, CALCIUM 7.7, AST 48, ALK PHOS 287, CRP 58.20, TOTAL PROTEIN 5.5, ALBUMIN 2.0. BLOOD AND URINE CULTURES REVEAL GROWTH OF E.COLI. A CHEST XRAY WAS OBTAINED THIS MORNING AND REVEALED: The trachea is midline. The cardiac silhouette is enlarged. Infiltrate is noted within the right lower lobe. Hazy opacification within the left lower lobe may in part be due to overlying soft tissues however atelectasis, infiltrate, and/or small effusion cannot be excluded. Elevation of right hemidiaphragm is again noted. WE ARE AWAITING HER COVID-19 RETEST. OTHERWISE, WE WILL CONTINUE WITH CURRENT PLAN OF CARE TODAY. WE WILL FOLLOW UP WITH AM LABS AND CHEST XRAY AND CONTINUE TO MONITOR. - Past Medical Family Social History Past Med/Fam/Surg Hx: No changes since H&P Allergies: Allergies tuberculin,PPD,multi-puncture Allergy (Verified 03/10/20 13:33) - Review of Systems ROS: No change since H&P - Vital Signs and I&O's Vital Signs: Temperature 97.9 F Pulse Rate [Apical] 69 Pulse Rate 44 Respiratory Rate 18 Blood Pressure [Right Arm] 148/96 Blood Pressure [Left Arm] 155/70 Blood Pressure 80/48 O2 Sat by Pulse Oximetry 97 Intake and Output: Intake & Output 04/06/20 04/07/20 04/08/20 04/09/20 11:59 11:59 11:59 11:59 Intake Total 3080 / 3080 3600 / 3600 4260 / 4260 3595 / 3595 Balance 3080 / 3080 3600 / 3600 4260 / 4260 3595 / 3595 - Physical Exam Oriented: Normal Eyes: Normal Ear: Normal Nose: Normal Throat: Normal Respiratory: Generalized, Diminished Cardiovascular: Normal : Normal Auscultation: Bowel Sounds: Normal Palpation: Normal Tenderness: Normal Skin: Normal Musculoskeletal: Normal Psychiatric: Normal Mood Description: Calm Affect: Normal Speech Pattern: Clear, Appropriate - Laboratory and Diagnostics Result Diagrams: 04/09/20 05:02 04/09/20 05:02 Labs: 04/01/20 20:23 Blood Blood Culture - Final Escherichia Coli 04/01/20 20:15 Blood Blood Culture - Final Escherichia Coli 04/02/20 01:40 Urine,Clean Catch Urine Culture - Final Escherichia Coli Laboratory WBC 6.3 X10^3/uL (3.6-10.0) 04/09/20 05:02 RBC 2.95 X10^6/uL (3.5-5.4) L 04/09/20 05:02 Hgb 9.2 g/dL (12.0-16.0) L 04/09/20 05:02 Hct 26.7 % (36.0-47.0) L 04/09/20 05:02 MCV 90.4 fL (80.0-100.0) 04/09/20 05:02 MCH 31.2 pg (27.0-34.0) 04/09/20 05:02 MCHC 34.5 g/dL (33.0-35.0) 04/09/20 05:02 RDW 15.9 % (11.6-16.5) 04/09/20 05:02 Plt Count 196 X10^3/uL (150.0-450.0) 04/09/20 05:02 MPV 8.1 fL (7.4-11.0) 04/09/20 05:02 Neut % (Auto) 74.0 % (42.0-75.0) 04/09/20 05:02 Lymph % (Auto) 10.5 % (21.0-51.0) L 04/09/20 05:02 [place] % (Auto) 9.8 % (0.0-13.0) 04/09/20 05:02 Eos % (Auto) 5.0 % (0.9-2.9) H 04/09/20 05:02 Baso % (Auto) 0.7 % (0.2-1.0) 04/09/20 05:02 Neut # (Auto) 4.7 x10^3/uL (2.2-4.8) 04/09/20 05:02 Lymph # (Auto) 0.7 X10^3/uL (1.3-2.9) L 04/09/20 05:02 [place] # (Auto) 0.6 x10^3/uL (0.3-0.8) 04/09/20 05:02 Eos # (Auto) 0.3 x10^3/uL (0.0-0.2) H 04/09/20 05:02 Baso # (Auto) 0.0 X10^3/uL (0.0-0.1) 04/09/20 05:02 Absolute Nucleated RBC 0.1 /100WBC 04/09/20 05:02 Sodium 133 mmol/L (136-145) L 04/09/20 05:02 Corrected Sodium TNP 04/09/20 05:02 Potassium 3.8 mmol/L (3.5-5.1) 04/09/20 05:02 Chloride 100 mmol/L (98-107) 04/09/20 05:02 Carbon Dioxide 27.7 mmol/L (21-32) 04/09/20 05:02 BUN 18 mg/dL (7-18) 04/09/20 05:02 Creatinine 0.90 mg/dL (0.55-1.02) 04/09/20 05:02 Est GFR (MDRD) Af Amer > 60 (>60) 04/09/20 05:02 Est GFR (MDRD) Non-Af > 60 (>60) 04/09/20 05:02 Glucose 86 mg/dL (65-99) 04/09/20 05:02 POC Glucose (mg/dL) 190 mg/dL (65-99) H 04/03/20 19:45 Lactic Acid 1.0 mmol/L (0.4-2.0) 04/01/20 18:04 Calcium 7.6 mg/dL (8.5-10.1) L 04/09/20 05:02 Corrected Calcium 9.3 mg/dL (8.5-10.1) 04/09/20 05:02 Magnesium 1.4 mg/dL (1.7-2.9) L 04/07/20 04:33 Ferritin 197 ng/mL (8-252) 04/09/20 05:02 Total Bilirubin 0.50 mg/dL (0.2-1.0) 04/09/20 05:02 AST 33 Units/L (15-37) 04/09/20 05:02 ALT 31 Units/L (12-78) 04/09/20 05:02 Alkaline Phosphatase 273 Units/L (46-116) H 04/09/20 05:02 Lactate Dehydrogenase 222 Units/L (81-234) 04/03/20 05:08 Creatine Kinase 19 Units/L (26-192) L 04/01/20 18:04 CK-MB (CK-2) < 1.0 ng/mL (0-4.0) 04/01/20 18:04 CK/CKMB % Calc 5.3 % (<4) 04/01/20 18:04 Troponin I < 0.02 ng/mL (0-1.5) 04/01/20 18:04 C-Reactive Protein 36.40 mg/L (0-3.0) H 04/09/20 05:02 B-Natriuretic Peptide 1110 pg/mL (0-79) H* 04/01/20 18:11 Total Protein 5.3 g/dL (6.4-8.2) L 04/09/20 05:02 Albumin 1.9 g/dL (3.4-5.0) L 04/09/20 05:02 Globulin 3.4 g/dL (2.5-4.5) 04/09/20 05:02 Albumin/Globulin Ratio 0.6 Ratio (1.1-2.1) L 04/09/20 05:02 Specimen Type Clean catch urine 04/02/20 01:40 Urine Color Yellow (YELLOW) 04/02/20 01:40 Urine Appearance Hazy (CLEAR) 04/02/20 01:40 Urine pH 5.0 (5.0 - 8.0) 04/02/20 01:40 Ur Specific Morse 1.020 (1.000-1.030) 04/02/20 01:40 Urine Protein 3+ (NEGATIVE) 04/02/20 01:40 Urine Glucose (UA) Negative (NEGATIVE) 04/02/20 01:40 Urine Ketones Negative (NEGATIVE) 04/02/20 01:40 Urine Occult Blood 2+ (NEGATIVE) 04/02/20 01:40 Urine Nitrite Negative (NEGATIVE) 04/02/20 01:40 Urine Bilirubin Negative (NEGATIVE) 04/02/20 01:40 Urine Urobilinogen Normal (NORMAL) 04/02/20 01:40 Ur Leukocyte Esterase 3+ (NEGATIVE) 04/02/20 01:40 Urine RBC None seen /HPF (0-3) 04/02/20 01:40 Urine WBC Tntc /HPF (0-5) A 04/02/20 01:40 Ur Squamous Epith Cells Numerous /HPF (NEGATIVE) 04/02/20 01:40 Urine Bacteria 3+ /HPF (NEGATIVE) 04/02/20 01:40 Ur Culture Indicated? Yes/culture set up 04/02/20 01:40 SARS-CoV-2 (PCR) Negative (NEGATIVE) 04/09/20 09:33 - Plan (1) Sepsis Status: Acute Qualifiers: Sepsis type: sepsis due to unspecified organism Sepsis acute organ dysfunction status: unspecified Qualified Code(s): A41.9 - Sepsis, unspecified organism Plan: NS AT 75 ML/HR, INVANZ 1G IV DAILY, HUMULIN R SLIDING SCALE, LASIX 20MG IV Q12H, AND HER HOME MEDICATIONS WERE RESUMED WITH THE EXCEPTION OF HER PATCHES (2) Urinary tract infection Status: Acute Qualifiers: Urinary tract infection type: acute cystitis Hematuria presence: without hematuria Qualified Code(s): N30.00 - Acute cystitis without hematuria (3) CHF (congestive heart failure) Status: Chronic Qualifiers: Heart failure type: unspecified Heart failure chronicity: acute on chronic Qualified Code(s): I50.9 - Heart failure, unspecified (4) Pneumonia Status: Acute Qualifiers: Pneumonia type: due to unspecified organism Laterality: unspecified laterality (5) Acute hyponatremia Status: Acute (6) Hypotension Status: Acute Qualifiers: Hypotension type: unspecified hypotension type Qualified Code(s): I95.9 - Hypotension, unspecified (7) Diabetes mellitus, type 2 Status: Chronic Qualifiers: Diabetes mellitus fdc insulin use: with fdc use Diabetes stiven litus complication status: without complication Qualified Code(s): E11.9 - Type 2 diabetes mellitus without complications; 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
[2020-04-09] MEDS: HumuLIN R SC PRN (11:59)
[2020-04-09 12:02] VITALS: BP 165/77
== END 2020-04-09 14:50 | DRG 871 ==
LOC: MED/SURG 16:55 → ER 16:55 → OBSVTOIN 21:17 → MED/SURG 21:50
PROVIDERS: ADMIT Internal Medicine; ATTEND Internal Medicine
DX: R26.89 Other abnormalities of gait and mobility; R06.02 Shortness of breath; R50.9 Fever, unspecified; E11.65 Type 2 diabetes mellitus with hyperglycemia; N30.00 Acute cystitis without hematuria; I25.10 Atherosclerotic heart disease of native coronary artery without angina pectoris; R94.31 Abnormal electrocardiogram [ECG] [EKG]; I48.91 Unspecified atrial fibrillation; I50.9 Heart failure, unspecified; M19.90 Unspecified osteoarthritis, unspecified site; I11.0 Hypertensive heart disease with heart failure; Z79.4 Long term (current) use of insulin; E78.2 Mixed hyperlipidemia; B96.29 Other Escherichia coli [E. coli] as the cause of diseases classified elsewhere; E03.8 Other specified hypothyroidism; J18.8 Other pneumonia, unspecified organism; E87.1 Hypo-osmolality and hyponatremia; I95.89 Other hypotension; Z11.59 Encounter for screening for other viral diseases; K21.9 Gastro-esophageal reflux disease without esophagitis; A41.51 Sepsis due to Escherichia coli [E. coli]
CPT/HCPCS: 36415; 71010; 71045; 80053; 81001; 82550; 82553; 82728; 83605; 83615; 83735; 83880; 84132; 84484; 85025; 86140; 87040; 87077; 87086; 87088; 87186; 87635; 93005; 94640; 94760; 96365; 96367; 96374; 96375; 97110; 97162; 97166; 97530; 97535; 99284; A4222; J0696; J0713; J1335; J1815; J1940; J1956; J2405; J2550; J3490; J7030; J7050

== ENCOUNTER 2020-05-25 17:11 | Inpatient (IN) ==
[2020-05-25] MEDS ORDERED: FORTAZ or TAZICEF VIAL INJ 1 G in NS 100 ML IV + SPIKE MINIBAG* 100 ML IV SCH (18:00)
[2020-05-25] MEDS ORDERED: NS 1000 ML 1,000 ML ONE (19:34)
[2020-05-25] MEDS: NS 1000 ML 1,000 ML IV SCH (20:23)
[2020-05-25] MEDS ORDERED: CIPRO IV 200 MG PREMIX* 200 MG/100 ML BAG IV ONE (20:24)
[2020-05-25] MEDS: CIPRO IV 200 MG PREMIX* 200 MG/100 ML BAG IV SCH ×2 (20:25→21:16)
[2020-05-25 20:45] LABS: BASOPHILS % (AUTO) 0.2 % (0.2-1.0); EOSINOPHILS # (AUTO) 0.1 x10^3/uL (0.0-0.2); EOSINOPHILS % (AUTO) 0.7 % (0.9-2.9); HEMATOCRIT 33.8 % (36.0-47.0); HEMOGLOBIN 11.4 g/dL (12.0-16.0); LYMPHOCYTES # (AUTO) 0.6 X10^3/uL (1.3-2.9); LYMPHOCYTES % (AUTO) 7.1 % (21.0-51.0); MEAN CORPUSCULAR HEMOGLOBIN 29.8 pg (27.0-34.0); MEAN CORPUSCULAR HGB CONC 33.7 g/dL (33.0-35.0); MEAN CORPUSCULAR VOLUME 88.4 fL (80.0-100.0); MEAN PLATELET VOLUME 7.7 fL (7.4-11.0); MONOCYTES # (AUTO) 1.3 x10^3/uL (0.3-0.8); MONOCYTES % (AUTO) 14.4 % (0.0-13.0); NEUTROPHILS % (AUTO) 77.6 % (42.0-75.0); PLATELET COUNT 236 X10^3/uL (150.0-450.0); RED BLOOD COUNT 3.82 X10^6/uL (3.5-5.4); RED CELL DISTRIBUTION WIDTH 16.5 % (11.6-16.5); WHITE BLOOD COUNT 9.1 X10^3/uL (3.6-10.0)
[2020-05-25 21:03] LABS: CALCIUM 8.8 mg/dL (8.5-10.1); CARBON DIOXIDE 23.5 mmol/L (21-32); COR CA(FOR HYPOALB) 9.6 mg/dL (8.5-10.1); CREATININE 2.47 mg/dL (0.55-1.02); TOTAL PROTEIN 6.9 g/dL (6.4-8.2)
[2020-05-25] MEDS: SNACK - Diabetic Appropriate PO SCH (21:17)
[2020-05-25] MEDS ORDERED: FORTAZ or TAZICEF VIAL INJ ONE (21:18)
[2020-05-25] MEDS ORDERED: NS 100 ML IV + SPIKE MINIBAG* 100 ML IV ONE (21:22)
[2020-05-26 06:44] LABS: BASOPHILS % (AUTO) 0.2 % (0.2-1.0); EOSINOPHILS # (AUTO) 0.1 x10^3/uL (0.0-0.2); HEMATOCRIT 31.5 % (36.0-47.0); HEMOGLOBIN 10.9 g/dL (12.0-16.0); LYMPHOCYTES # (AUTO) 0.5 X10^3/uL (1.3-2.9); LYMPHOCYTES % (AUTO) 5.1 % (21.0-51.0); MEAN CORPUSCULAR HEMOGLOBIN 30.4 pg (27.0-34.0); MEAN CORPUSCULAR HGB CONC 34.7 g/dL (33.0-35.0); MEAN CORPUSCULAR VOLUME 87.6 fL (80.0-100.0); MEAN PLATELET VOLUME 7.9 fL (7.4-11.0); MONOCYTES # (AUTO) 1.5 x10^3/uL (0.3-0.8); MONOCYTES % (AUTO) 15.2 % (0.0-13.0); NEUTROPHILS # (AUTO) 7.6 x10^3/uL (2.2-4.8); NEUTROPHILS % (AUTO) 78.5 % (42.0-75.0); PLATELET COUNT 192 X10^3/uL (150.0-450.0); WHITE BLOOD COUNT 9.6 X10^3/uL (3.6-10.0)
[2020-05-26 06:51] LABS: ALANINE AMINOTRANSFERASE 24 Units/L (12-78); ALBUMIN 2.7 g/dL (3.4-5.0); ALKALINE PHOSPHATASE 133 Units/L (46-116); ASPARTATE AMINO TRANSFERASE 21 Units/L (15-37); BLOOD UREA NITROGEN 43 mg/dL (7-18); CALCIUM 8.4 mg/dL (8.5-10.1); CARBON DIOXIDE 23.7 mmol/L (21-32); CHLORIDE 95 mmol/L (98-107); COR CA(FOR HYPOALB) 9.4 mg/dL (8.5-10.1); CREATININE 2.05 mg/dL (0.55-1.02); SODIUM 127 mmol/L (136-145); TOTAL PROTEIN 6.5 g/dL (6.4-8.2); eGFR NON BLACK RACES 25 (>60)
--- NOTE | 2020-05-26 07:44 | RAD ---
HISTORYShortness of breathSTUDYChest AP [id number]/22/2020 4:01 p.m.FINDINGSThe heart is mildly enlarged. No congestive heart failure is noted. The aorta is calcified. The lungs are well inflated and free of acute alveolar infiltrates. Mild perihilar interstitial prominence is again identified on the right. No pleural effusions are identified. Bony thorax is unremarkable.IMPRESSIONMild cardiomegaly without congestive heart failurePerihilar interstitial changes on the right, unchangedElectronically signed by: VICTORIA MAN (May 26, 2020 07:43:22)
[2020-05-26] MEDS: NS 1000 ML 1,000 ML IV SCH ×2 (07:48→20:44)
[2020-05-26] MEDS: CIPRO IV 200 MG PREMIX* 200 MG/100 ML BAG IV SCH ×2 (08:32→20:29)
[2020-05-26] MEDS ORDERED: PHENERGAN INJ 25 MG IM PRN (11:09)
[2020-05-26] MEDS ORDERED: ULTRAM PO PRN (11:09)
[2020-05-26] MEDS ORDERED: MIRALAX POWDER (1 DOSE 17 G) PO PRN (11:09)
[2020-05-26] MEDS: HumuLIN R SUBCUT PRN ×3 (11:55→21:30)
[2020-05-26] MEDS: NITRODUR PATCH 0.4 MG/HR TD SCH (13:14)
[2020-05-26] MEDS: QUESTRAN POWDER FOR ORAL SUSP PO SCH (13:16)
[2020-05-26] MEDS: MYLICON TAB 80 MG CHEW PO SCH ×2 (13:17→20:32)
[2020-05-26] MEDS: COLACE CAP 100 MG PO SCH ×2 (13:17→20:30)
[2020-05-26] MEDS: SYNTHROID 75 mcg TAB PO SCH (13:17)
[2020-05-26] MEDS: CITRACAL + VITAMIN D PO SCH (13:18)
[2020-05-26] MEDS: FERROUS GLUCONATE PO SCH (13:18)
[2020-05-26] MEDS: VITAMIN C PO SCH ×2 (13:18→20:31)
[2020-05-26] MEDS: TAB-A-VITE PO SCH (13:18)
[2020-05-26] MEDS: ELIQUIS PO SCH ×2 (13:19→20:30)
[2020-05-26] MEDS: ARTIFICIAL TEARS DROPS OP SCH ×2 (13:28→22:16)
[2020-05-26] MEDS: NUT TX GLUC INTOL LAC FREE SOY PO SCH ×2 (13:29→22:16)
[2020-05-26] MEDS: XOPENEX 1.25 MG/3 ML NEBULE NEB SCH ×2 (14:36→21:15)
[2020-05-26 17:15] VITALS: BMI 20.9
[2020-05-26] MEDS: SNACK - Diabetic Appropriate PO SCH (20:29)
[2020-05-26] MEDS: LIPITOR TAB 20 MG PO SCH (20:41)
--- NOTE | 2020-05-26 21:12 | DR.H&P ---
H&P - History & Physical for Day of: H&P Date: 05/25/20 - Chief Complaint Chief Complaint: WEAKNESS, DECREASED ORAL INTAKE, CONFUSION - History of Present Illness History of Present Illness: IS A 84 YEAR OLD PATIENT OF OURS. SHE IS A RESIDENT OF [facility]. SHE PRESENTED TO THE HOSPITAL A DIRECT ADMISSION WITH SHELTER STAFF REPORTING A URINARY TRACT INFECTION, WEAKNESS, DECREASED ORAL INTAKE, AND CONFUSION. PATIENT DOES REPORT LOWER ABDOMINAL PAIN WELL. OUTPATIENT LABS WERE OBTAINED PRIOR TO ADMISSION AND REVEALED: WBC 10.1, HGB 11.4, HCT 34.0, SODIUM 126, POTASSIUM 5.5, CHLORIDE 93, BUN 41, CREATININE 3.32, GLUCOSE 138, ALK PHOS 135. A URINALYSIS WAS OBTAINED AND REVEALED: WBC TNTC, RBC TNTC, LEUKOCYTES 3+, BACTERIA 4+, OCCULT BLOOD 1+, URINE PROTEIN 3+. URINE AND BLOOD CULTURES WERE SET UP. A CHEST XRAY WAS OBTAINED AND REVEALED: Mild stable cardiac enlargement. Nonspecific interstitial prominence which may represent chronic peribronchial thickening or a more acute congestive process. There is no evidence for localized pneumonia. SHE WAS ADMITTED FOR TREATMENT OF URINARY TRACT INFECTION, DEHYDRATION, AND HYPONATREMIA. SHE WAS STARTED ON NORMAL SALINE AT 80 ML/HR, CIPRO 200MG IV Q12H, FORTAZ 1G IV DAILY, AND HER HOME MEDICATIONS WERE RESUMED. OTHERWISE, WE PLAN TO FOLLOW UP WITH AM LABS AND CONTINUE TO MONITOR. - Past Medical History Past Medical History: Coronary Artery Disease, Hypertension, Dyslipidemia, Diabetes, Depression, Hypothyroidism, Anemia, CVA, Asthma, GERD, Arthritis, CHF Additional Medical History: DVT, Sleep Apnea, Depression, Chronic Sinusitis, Allergic Rhinitis, Constipation, Edema, UTI's, Pneumonia, Arthritis, Cataracts, Osteoporosis, Glaucoma, Ear Infections, Gastrointestinal Ulcer, Cardiac Arrh ythmia, Muscle Weakness, Osteoporsis, Restless leg syndrome - Past Surgical History Surgical History: Angioplasty/Stents, HEALTHCARE OR MEDICAL Surgery, Other Additional Surgical History: Sinus surgery - Family History Family Medical History: Diabetes Mellitus, Coronary Artery Disease, Sudden Cardiac , Hypertension - Social History Type of Tobacco Use: None Alcohol Use: None Drug Use: None - Medications Home Medications: tuberculin,PPD,multi-puncture Allergy (Verified 03/10/20 13:33) CONTINUE taking the following medications clonidine 0.3 mg TRANSDERMAL .7DAYS 05/26/20 [History] - Review of Systems Constitutional: See HPI, Fever, Weakness Eyes: No Symptoms Reported ENT: No Symptoms Reported Respiratory: No Symptoms Reported Cardiovascular: No Symptoms Reported Gastrointestinal: No Symptoms Reported Genitourinary: No Symptoms Reported Musculoskeletal: No Symptoms Reported Skin: No Symptoms Reported Neurological: Weakness - Physical Exam Vital Signs: Temperature 98.0 F Pulse Rate [Left Brachial] 66 Pulse Rate 85 Respiratory Rate 18 Blood Pressure [Right Arm] 144/65 Blood Pressure [Left Arm] 110/59 O2 Sat by Pulse Oximetry 100 Oriented: Person Eyes: Normal Ear: Normal Nose: Normal Throat: Normal Respiratory: Diminished Throughout Cardiovascular: Normal : Normal Auscultation: Bowel Sounds: Normal Palpation: Normal Tenderness: Suprapubic, Mild. negative: Rebound, Guarding, Rigidity Skin: Normal Musculoskeletal: Normal Psychiatric: Normal Mood Description: Calm Affect: Normal Speech Pattern: Clear - Assessment/Plan (1) Dehydration Status: Acute Plan: ADMIT, NORMAL SALINE AT 80 ML/HR, CIPRO 200MG IV Q12H, FORTAZ 1G IV DAILY, AND HER HOME MEDICATIONS WERE RESUMED (2) Urinary tract infection Qualifiers: Urinary tract infection type: acute cystitis Hematuria presence: without hematuria Qualified Code(s): N30.00 - Acute cystitis without hematuria Status: Acute (3) Hypotension Qualifiers: Hypotension type: unspecified hypotension type Qualified Code(s): I95.9 - Hypotension, unspecified Status: Acute (4) Acute hyponatremia Status: Acute (5) Generalized weakness Status: Chronic - Allergies Allergies/Adverse Reactions: Allergies Allergy/AdvReac Type Severity Reaction Status Date / Time tuberculin,PPD,multi-puncture Allergy Verified 03/10/20 13:33
[2020-05-26] MEDS: TRAVATAN Z EACHEYE SCH (21:54)
[2020-05-26] MEDS: FORTAZ or TAZICEF VIAL INJ 1 G in NS 100 ML IV + SPIKE MINIBAG* 100 ML IV SCH (22:16)
[2020-05-27] MEDS: NS 1000 ML 1,000 ML IV SCH ×3 (03:24→22:47)
[2020-05-27] MEDS: ARTIFICIAL TEARS DROPS OP SCH ×3 (05:44→22:47)
[2020-05-27] MEDS: NUT TX GLUC INTOL LAC FREE SOY PO SCH ×3 (05:45→22:48)
[2020-05-27] MEDS: XOPENEX 1.25 MG/3 ML NEBULE NEB SCH ×3 (05:50→21:00)
[2020-05-27 07:00] LABS: BASOPHILS % (AUTO) 0.6 % (0.2-1.0); EOSINOPHILS # (AUTO) 0.1 x10^3/uL (0.0-0.2); EOSINOPHILS % (AUTO) 1.8 % (0.9-2.9); HEMATOCRIT 28.5 % (36.0-47.0); HEMOGLOBIN 9.8 g/dL (12.0-16.0); LYMPHOCYTES # (AUTO) 0.6 X10^3/uL (1.3-2.9); LYMPHOCYTES % (AUTO) 9.8 % (21.0-51.0); MEAN CORPUSCULAR HEMOGLOBIN 29.7 pg (27.0-34.0); MEAN CORPUSCULAR HGB CONC 34.4 g/dL (33.0-35.0); MEAN CORPUSCULAR VOLUME 86.3 fL (80.0-100.0); MONOCYTES # (AUTO) 1.1 x10^3/uL (0.3-0.8); MONOCYTES % (AUTO) 16.8 % (0.0-13.0); NEUTROPHILS # (AUTO) 4.4 x10^3/uL (2.2-4.8); PLATELET COUNT 176 X10^3/uL (150.0-450.0); RED BLOOD COUNT 3.31 X10^6/uL (3.5-5.4); RED CELL DISTRIBUTION WIDTH 15.5 % (11.6-16.5); WHITE BLOOD COUNT 6.3 X10^3/uL (3.6-10.0)
[2020-05-27 07:05] LABS: ALBUMIN 2.3 g/dL (3.4-5.0); CALCIUM 8.5 mg/dL (8.5-10.1); CARBON DIOXIDE 20.8 mmol/L (21-32); COR CA(FOR HYPOALB) 9.9 mg/dL (8.5-10.1); CREATININE 1.19 mg/dL (0.55-1.02)
[2020-05-27] MEDS: QUESTRAN POWDER FOR ORAL SUSP PO SCH (08:28)
[2020-05-27] MEDS: VITAMIN C PO SCH ×2 (08:29→21:45)
[2020-05-27] MEDS: NITRODUR PATCH 0.4 MG/HR TD SCH (08:29)
[2020-05-27] MEDS: SYNTHROID 75 mcg TAB PO SCH (08:29)
[2020-05-27] MEDS: TAB-A-VITE PO SCH (08:30)
[2020-05-27] MEDS: COLACE CAP 100 MG PO SCH ×2 (08:30→21:00)
[2020-05-27] MEDS: MYLICON TAB 80 MG CHEW PO SCH ×2 (08:30→21:00)
[2020-05-27] MEDS: PROTONIX TAB 40 MG PO SCH (08:31)
[2020-05-27] MEDS: FERROUS GLUCONATE PO SCH (08:31)
[2020-05-27] MEDS: ELIQUIS PO SCH ×2 (08:31→22:41)
[2020-05-27] MEDS: CITRACAL + VITAMIN D PO SCH (08:31)
[2020-05-27] MEDS: CIPRO IV 200 MG PREMIX* 200 MG/100 ML BAG IV SCH ×2 (08:51→21:00)
[2020-05-27] MEDS ORDERED: PHARMACY CONSULT LTC MEDICATIONS XX SCH (10:00)
[2020-05-27] MEDS ORDERED: ZESTRIL TAB 20 MG ONE ×2 (10:47→22:15)
[2020-05-27] MEDS: TOPROL XL PO SCH (10:47)
[2020-05-27] MEDS: ZESTRIL TAB 20 MG PO SCH ×2 (10:47→21:46)
[2020-05-27] MEDS: HumuLIN R SUBCUT PRN ×3 (13:26→23:23)
[2020-05-27] MEDS: FORTAZ or TAZICEF VIAL INJ 1 G in NS 100 ML IV + SPIKE MINIBAG* 100 ML IV SCH (21:00)
[2020-05-27] MEDS: SNACK - Diabetic Appropriate PO SCH (22:41)
[2020-05-27] MEDS: LIPITOR TAB 20 MG PO SCH (22:43)
[2020-05-27] MEDS: TRAVATAN Z EACHEYE SCH (22:45)
[2020-05-28] MEDS: XOPENEX 1.25 MG/3 ML NEBULE NEB SCH (04:45)
[2020-05-28] MEDS: ARTIFICIAL TEARS DROPS OP SCH (05:06)
[2020-05-28] MEDS: NUT TX GLUC INTOL LAC FREE SOY PO SCH (05:06)
[2020-05-28 06:07] LABS: BASOPHILS % (AUTO) 1.1 % (0.2-1.0); EOSINOPHILS # (AUTO) 0.2 x10^3/uL (0.0-0.2); EOSINOPHILS % (AUTO) 4.9 % (0.9-2.9); HEMATOCRIT 28.7 % (36.0-47.0); HEMOGLOBIN 9.9 g/dL (12.0-16.0); LYMPHOCYTES # (AUTO) 0.7 X10^3/uL (1.3-2.9); LYMPHOCYTES % (AUTO) 16.3 % (21.0-51.0); MEAN CORPUSCULAR HEMOGLOBIN 30.1 pg (27.0-34.0); MEAN CORPUSCULAR HGB CONC 34.6 g/dL (33.0-35.0); MEAN CORPUSCULAR VOLUME 86.9 fL (80.0-100.0); MONOCYTES # (AUTO) 0.9 x10^3/uL (0.3-0.8); MONOCYTES % (AUTO) 19.4 % (0.0-13.0); NEUTROPHILS # (AUTO) 2.6 x10^3/uL (2.2-4.8); NEUTROPHILS % (AUTO) 58.3 % (42.0-75.0); PLATELET COUNT 163 X10^3/uL (150.0-450.0); RED CELL DISTRIBUTION WIDTH 15.3 % (11.6-16.5); WHITE BLOOD COUNT 4.4 X10^3/uL (3.6-10.0)
[2020-05-28 06:21] LABS: ALANINE AMINOTRANSFERASE 24 Units/L (12-78); ALBUMIN 2.2 g/dL (3.4-5.0); ALKALINE PHOSPHATASE 145 Units/L (46-116); ASPARTATE AMINO TRANSFERASE 24 Units/L (15-37); BLOOD UREA NITROGEN 14 mg/dL (7-18); CALCIUM 7.9 mg/dL (8.5-10.1); CARBON DIOXIDE 23.8 mmol/L (21-32); CHLORIDE 100 mmol/L (98-107); COR CA(FOR HYPOALB) 9.3 mg/dL (8.5-10.1); COR NA(FOR HYPERGLY) 134 mmol/L (136-145); CREATININE 0.88 mg/dL (0.55-1.02); SODIUM 131 mmol/L (136-145); TOTAL PROTEIN 5.9 g/dL (6.4-8.2); eGFR NON BLACK RACES > 60 (>60)
[2020-05-28] MEDS ORDERED: ZESTRIL TAB 20 MG ONE (08:32)
[2020-05-28] MEDS: QUESTRAN POWDER FOR ORAL SUSP PO SCH (08:57)
[2020-05-28] MEDS: NITRODUR PATCH 0.4 MG/HR TD SCH (08:57)
[2020-05-28] MEDS: CITRACAL + VITAMIN D PO SCH (08:59)
[2020-05-28] MEDS: TAB-A-VITE PO SCH (08:59)
[2020-05-28] MEDS: VITAMIN C PO SCH (08:59)
[2020-05-28] MEDS: MYLICON TAB 80 MG CHEW PO SCH (08:59)
[2020-05-28] MEDS: ZESTRIL TAB 20 MG PO SCH (09:00)
[2020-05-28] MEDS ORDERED: INVANZ INJ 1 GM VIAL 1 GM in NS 100 ML IV + SPIKE MINIBAG* 100 ML IV SCH (09:00)
[2020-05-28] MEDS: PROTONIX TAB 40 MG PO SCH (09:01)
[2020-05-28] MEDS: FERROUS GLUCONATE PO SCH (09:01)
[2020-05-28] MEDS: ELIQUIS PO SCH (09:02)
[2020-05-28] MEDS: SYNTHROID 75 mcg TAB PO SCH (09:02)
[2020-05-28] MEDS: COLACE CAP 100 MG PO SCH (09:02)
[2020-05-28] MEDS: TOPROL XL PO SCH (09:02)
[2020-05-28] MEDS: NS 1000 ML 1,000 ML IV SCH (11:20)
--- NOTE | 2020-05-28 11:32 | PCM.PROG ---
Progress Note - Progress Note for Day of Date of Exam: 05/27/20 - Subjective Subjective: IS BEING TREATED FOR DEHYDRATION, URINARY TRACT INFECTION, HYPOTENSION, ACUTE HYPONATREMIA, AND GENERALIZED WEAKNESS. TODAY, SHE IS LYING IN BED WITH EYES CLOSED ON MORNING ROUNDS. SHE AWAKENS AND RESPONDS TO VERBAL STIMULI. SHE CONTINUES WITH WEAKNESS TODAY. ON EXAMINATION, HEART IS REGULAR IN RATE AND RHYTHM. BILATERAL LUNGS ARE NOTED WITH DIMINISHED LUNG SOUNDS THROUGHOUT. ABDOMEN IS ROUND, SOFT, AND NON-TENDER WITH NORMAL BOWEL SOUNDS NOTED IN ALL QUADRANTS. HER VITALS THIS MORNING ARE: 98.1-60-18-97%-144/68. LABS WERE OBTAINED. ABNORMAL LAB VALUES INCLUDE THE FOLLOWING: RBC 3.31, HGB 9.8, HCT 28.5, SODIUM 127, CHLORIDE 97, CARBON DIOXIDE 20.8, BUN 27, CREATININE 1.19, G LUCOSE 172, ALK PHOS 132, TOTAL PROTEIN 6.0, ALBUMIN 2.3. BLOOD CULTURES ARE PENDING, BUT A REPORTED TO BE POSITIVE PER LAB, POSSIBLY E.COLI. SHE IS CURRENTLY RECEIVING: NORMAL SALINE AT 80 ML/HR, CIPRO 200MG IV Q12H, FORTAZ 1G IV DAILY, AND HER HOME MEDICATIONS WERE RESUMED. WE WILL CONTINUE WITH CURRENT PLAN OF CARE TODAY. OTHERWISE, WE PLAN TO FOLLOW UP WITH AM LABS AND CONTINUE TO MONITOR. - Past Medical Family Social History Past Med/Fam/Surg Hx: No changes since H&P Allergies: Allergies tuberculin,PPD,multi-puncture Allergy (Verified 03/10/20 13:33) - Review of Systems ROS: No change since H&P - Vital Signs and I&O's Vital Signs: Temperature 98.0 F Pulse Rate [Left Brachial] 80 Pulse Rate 78 Respiratory Rate 18 Blood Pressure [Right Arm] 172/79 Blood Pressure [Left Arm] 110/59 O2 Sat by Pulse Oximetry 98 Intake and Output: Intake & Output 05/25/20 05/26/20 05/27/20 05/28/20 11:59 11:59 11:59 11:59 Intake Total 894 / 894 2908 / 2908 3508 / 3508 Balance 894 / 894 2908 / 2908 3508 / 3508 - Physical Exam Oriented: Person Eyes: Normal Ear: Normal Nose: Normal Throat: Normal Respiratory: Generalized, Diminished Cardiovascular: Normal : Normal Auscultation: Bowel Sounds: Normal Palpation: Normal Tenderness: Suprapubic, Mild. negative: Rebound, Guarding, Rigidity Skin: Normal Musculoskeletal: Normal Psychiatric: Normal Mood Description: Calm Affect: Normal Speech Pattern: Clear, Appropriate - Laboratory and Diagnostics Result Diagrams: 05/28/20 05:15 05/28/20 05:15 Labs: Laboratory WBC 4.4 X10^3/uL (3.6-10.0) 05/28/20 05:15 RBC 3.30 X10^6/uL (3.5-5.4) L 05/28/20 05:15 Hgb 9.9 g/dL (12.0-16.0) L 05/28/20 05:15 Hct 28.7 % (36.0-47.0) L 05/28/20 05:15 MCV 86.9 fL (80.0-100.0) 05/28/20 05:15 MCH 30.1 pg (27.0-34.0) 05/28/20 05:15 MCHC 34.6 g/dL (33.0-35.0) 05/28/20 05:15 RDW 15.3 % (11.6-16.5) 05/28/20 05:15 Plt Count 163 X10^3/uL (150.0-450.0) 05/28/20 05:15 MPV 8.0 fL (7.4-11.0) 05/28/20 05:15 Neut % (Auto) 58.3 % (42.0-75.0) 05/28/20 05:15 Lymph % (Auto) 16.3 % (21.0-51.0) L 05/28/20 05:15 [place] % (Auto) 19.4 % (0.0-13.0) H 05/28/20 05:15 Eos % (Auto) 4.9 % (0.9-2.9) H 05/28/20 05:15 Baso % (Auto) 1.1 % (0.2-1.0) H 05/28/20 05:15 Neut # (Auto) 2.6 x10^3/uL (2.2-4.8) 05/28/20 05:15 Lymph # (Auto) 0.7 X10^3/uL (1.3-2.9) L 05/28/20 05:15 [place] # (Auto) 0.9 x10^3/uL (0.3-0.8) H 05/28/20 05:15 Eos # (Auto) 0.2 x10^3/uL (0.0-0.2) 05/28/20 05:15 Baso # (Auto) 0.0 X10^3/uL (0.0-0.1) 05/28/20 05:15 Absolute Nucleated RBC 0.0 /100WBC 05/28/20 05:15 Sodium 131 mmol/L (136-145) L 05/28/20 05:15 Corrected Sodium 134 mmol/L (136-145) L 05/28/20 05:15 Potassium 4.2 mmol/L (3.5-5.1) 05/28/20 05:15 Chloride 100 mmol/L (98-107) 05/28/20 05:15 Carbon Dioxide 23.8 mmol/L (21-32) 05/28/20 05:15 BUN 14 mg/dL (7-18) 05/28/20 05:15 Creatinine 0.88 mg/dL (0.55-1.02) 05/28/20 05:15 Est GFR (MDRD) Af Amer > 60 (>60) 05/28/20 05:15 Est GFR (MDRD) Non-Af > 60 (>60) 05/28/20 05:15 Glucose 210 mg/dL (65-99) H 05/28/20 05:15 POC Glucose (mg/dL) 188 mg/dL (65-99) H 05/28/20 11:12 Calcium 7.9 mg/dL (8.5-10.1) L 05/28/20 05:15 Corrected Calcium 9.3 mg/dL (8.5-10.1) 05/28/20 05:15 Total Bilirubin 0.30 mg/dL (0.2-1.0) 05/28/20 05:15 AST 24 Units/L (15-37) 05/28/20 05:15 ALT 24 Units/L (12-78) 05/28/20 05:15 Alkaline Phosphatase 145 Units/L (46-116) H 05/28/20 05:15 Total Protein 5.9 g/dL (6.4-8.2) L 05/28/20 05:15 Albumin 2.2 g/dL (3.4-5.0) L 05/28/20 05:15 Globulin 3.7 g/dL (2.5-4.5) 05/28/20 05:15 Albumin/Globulin Ratio 0.6 Ratio (1.1-2.1) L 05/28/20 05:15 - Plan (1) Dehydration Status: Acute Plan: NORMAL SALINE AT 80 ML/HR, CIPRO 200MG IV Q12H, FORTAZ 1G IV DAILY, AND HER HOME MEDICATIONS WERE RESUMED (2) Sepsis Status: Acute Qualifiers: Sepsis type: sepsis due to unspecified organism Sepsis acute organ dysfunction status: unspecified Qualified Code(s): A41.9 - Sepsis, unspecified organism (3) Urinary tract infection Status: Acute Qualifiers: Urinary tract infection type: acute cystitis Hematuria presence: without hematuria Qualified Code(s): N30.00 - Acute cystitis without hematuria (4) Hypotension Status: Acute Qualifiers: Hypotension type: unspecified hypotension type Qualified Code(s): I95.9 - Hypotension, unspecified (5) Acute hyponatremia Status: Acute (6) Generalized weakness Status: Chronic
[2020-05-28 12:37] VITALS: BP 153/87
[2020-05-31] MEDS ORDERED: CATAPRES-TTS-3 TD SCH (10:00)
== END 2020-05-28 13:15 | DRG 872 ==
LOC: MED/SURG 19:12
PROVIDERS: ADMIT Internal Medicine; ATTEND Internal Medicine
DX: E86.0 Dehydration; E03.8 Other specified hypothyroidism; R26.89 Other abnormalities of gait and mobility; A41.51 Sepsis due to Escherichia coli [E. coli]; R06.02 Shortness of breath; R53.1 Weakness; I95.89 Other hypotension; R10.84 Generalized abdominal pain; I25.10 Atherosclerotic heart disease of native coronary artery without angina pectoris; K21.9 Gastro-esophageal reflux disease without esophagitis; I10 Essential (primary) hypertension; N30.00 Acute cystitis without hematuria; E78.2 Mixed hyperlipidemia; E87.1 Hypo-osmolality and hyponatremia

== ENCOUNTER 2021-06-15 22:04 | Inpatient (IN) ==
--- NOTE | 2021-06-15 22:15 | DR.SOBA ---
HPI Time Seen Time Seen by Provider: 06/15/21 22:14 PMH PMH Past Medical History: Anemia, Arthritis, Asthma, CHF, Coronary Artery Disease, CVA, Depression, Diabetes, Dyslipidemia, GERD, Hypertension and Hypothyroidism Past Surgical History: Yes Surgical History: Angioplasty/Stents, FLUMER Surgery and Other Family History Family Medical History: Diabetes Mellitus, Coronary Artery Disease, Sudden Cardiac and Hypertension Social History Do you use any recreational Drugs:: No PE Vital Signs Vitals: Temperature 99 F Pulse Rate [Left] 87 Pulse Rate 81 Respiratory Rate 26 Blood Pressure [Left Arm] 148/63 Blood Pressure [Right Arm] 181/88 Blood Pressure 155/85 O2 Sat by Pulse Oximetry 99 ROR Labs Reviewed Result Diagrams: 06/15/21 22:53 06/15/21 22:53 Laboratory: WBC 6.6 X10^3/uL (3.6-10.0) 06/15/21 22:53 RBC 4.37 X10^6/uL (3.5-5.4) 06/15/21 22:53 Hgb 13.2 g/dL (12.0-16.0) 06/15/21 22:53 Hct 39.4 % (36.0-47.0) 06/15/21 22:53 MCV 90.3 fL (80.0-100.0) 06/15/21 22:53 MCH 30.3 pg (27.0-34.0) 06/15/21 22:53 MCHC 33.6 g/dL (33.0-35.0) 06/15/21 22:53 RDW 16.2 % (11.6-16.5) 06/15/21 22:53 Plt Count 172 X10^3/uL (150.0-450.0) 06/15/21 22:53 MPV 6.9 fL (7.4-11.0) L 06/15/21 22:53 Neut % (Auto) 68.5 % (42.0-75.0) 06/15/21 22:53 Lymph % (Auto) 12.2 % (21.0-51.0) L 06/15/21 22:53 [place] % (Auto) 15.8 % (0.0-13.0) H 06/15/21 22:53 Eos % (Auto) 3.3 % (0.9-2.9) H 06/15/21 22:53 Baso % (Auto) 0.2 % (0.2-1.0) 06/15/21 22:53 Neut # (Auto) 4.5 x10^3/uL (2.2-4.8) 06/15/21 22:53 Lymph # (Auto) 0.8 X10^3/uL (1.3-2.9) L 06/15/21 22:53 [place] # (Auto) 1.0 x10^3/uL (0.3-0.8) H 06/15/21 22:53 Eos # (Auto) 0.2 x10^3/uL (0.0-0.2) 06/15/21 22:53 Baso # (Auto) 0.0 X10^3/uL (0.0-0.1) 06/15/21 22:53 Absolute Nucleated RBC 0.1 /100WBC 06/15/21 22:53 Sodium 134 mmol/L (136-145) L 06/15/21 22:53 Corrected Sodium TNP 06/15/21 22:53 Potassium 4.0 mmol/L (3.5-5.1) 06/15/21 22:53 Chloride 102 mmol/L (98-107) 06/15/21 22:53 Carbon Dioxide 25.1 mmol/L (21-32) 06/15/21 22:53 BUN 19 mg/dL (7-18) H 06/15/21 22:53 Creatinine 1.05 mg/dL (0.55-1.02) H 06/15/21 22:53 Est GFR (MDRD) Af Amer > 60 (>60) 06/15/21 22:53 Est GFR (MDRD) Non-Af 53 (>60) L 06/15/21 22:53 Glucose 106 mg/dL (65-99) H 06/15/21 22:53 Calcium 8.3 mg/dL (8.5-10.1) L 06/15/21 22:53 Corrected Calcium 9.3 mg/dL (8.5-10.1) 06/15/21 22:53 Total Bilirubin 0.70 mg/dL (0.2-1.0) 06/15/21 22:53 AST 21 Units/L (15-37) 06/15/21 22:53 ALT 24 Units/L (12-78) 06/15/21 22:53 Alkaline Phosphatase 89 Units/L (46-116) 06/15/21 22:53 Creatine Kinase 50 Units/L (26-192) 06/16/21 01:00 CK-MB (CK-2) 2.4 ng/mL (0-4.0) 06/16/21 01:00 CK/CKMB % Calc 4.8 % (<4) 06/16/21 01:00 Troponin I 0.20 ng/mL (0-1.5) 06/16/21 01:00 B-Natriuretic Peptide 1180 pg/mL (0-79) H* 06/15/21 22:53 Total Protein 5.9 g/dL (6.4-8.2) L 06/15/21 22:53 Albumin 2.7 g/dL (3.4-5.0) L 06/15/21 22:53 Globulin 3.2 g/dL (2.5-4.5) 06/15/21 22:53 Albumin/Globulin Ratio 0.8 Ratio (1.1-2.1) L 06/15/21 22:53 Specimen Type Catherized urine 06/16/21 01:50 Urine Color Pale yellow (YELLOW) 06/16/21 01:50 Urine Appearance Clear (CLEAR) 06/16/21 01:50 Urine pH 6.5 (5.0 - 8.0) 06/16/21 01:50 Ur Specific [place] 1.010 (1.000-1.030) 06/16/21 01:50 Urine Protein 1+ (NEGATIVE) 06/16/21 01:50 Urine Glucose (UA) Negative (NEGATIVE) 06/16/21 01:50 Urine Ketones Negative (NEGATIVE) 06/16/21 01:50 Urine Occult Blood 4+ (NEGATIVE) 06/16/21 01:50 Urine Nitrite Negative (NEGATIVE) 06/16/21 01:50 Urine Bilirubin Negative (NEGATIVE) 06/16/21 01:50 Urine Urobilinogen Normal (NORMAL) 06/16/21 01:50 Ur Leukocyte Esterase 3+ (NEGATIVE) 06/16/21 01:50 Urine RBC 3-5 /HPF (0-3) A 06/16/21 01:50 Urine WBC 10-20 /HPF (0-5) A 06/16/21 01:50 Ur Squamous Epith Cells Rare /HPF (NEGATIVE) 06/16/21 01:50 Urine Bacteria 1+ /HPF (NEGATIVE) 06/16/21 01:50 Ur Culture Indicated? Yes/culture set up 06/16/21 01:50 SARS-CoV-2 (PCR) Negative (NEGATIVE) 06/16/21 01:45 Influenza Type A (PCR) Negative (NEGATIVE) 06/16/21 01:45 Influenza Type B (PCR) Negative (NEGATIVE) 06/16/21 01:45 RSV (PCR) Positive (NEGATIVE) A 06/16/21 01:45 Opioid Opioid Risk Tool Age (Marcos box if 16-45): No History of Preadolescent Sexual Abuse: No Total: 0 Total Score Risk Category: Low Risk Copyright: Tadeo CHAHAL predicting aberrant behaviors Instructions Forms: Precautions for COVID19 [facility] Social Distancing
[2021-06-15 23:04] LABS: BASOPHILS % (AUTO) 0.2 % (0.2-1.0); EOSINOPHILS # (AUTO) 0.2 x10^3/uL (0.0-0.2); EOSINOPHILS % (AUTO) 3.3 % (0.9-2.9); HEMATOCRIT 39.4 % (36.0-47.0); HEMOGLOBIN 13.2 g/dL (12.0-16.0); LYMPHOCYTES # (AUTO) 0.8 X10^3/uL (1.3-2.9); LYMPHOCYTES % (AUTO) 12.2 % (21.0-51.0); MEAN CORPUSCULAR HEMOGLOBIN 30.3 pg (27.0-34.0); MEAN CORPUSCULAR HGB CONC 33.6 g/dL (33.0-35.0); MEAN CORPUSCULAR VOLUME 90.3 fL (80.0-100.0); MEAN PLATELET VOLUME 6.9 fL (7.4-11.0); MONOCYTES % (AUTO) 15.8 % (0.0-13.0); NEUTROPHILS # (AUTO) 4.5 x10^3/uL (2.2-4.8); NEUTROPHILS % (AUTO) 68.5 % (42.0-75.0); PLATELET COUNT 172 X10^3/uL (150.0-450.0); RED BLOOD COUNT 4.37 X10^6/uL (3.5-5.4); RED CELL DISTRIBUTION WIDTH 16.2 % (11.6-16.5); WHITE BLOOD COUNT 6.6 X10^3/uL (3.6-10.0)
[2021-06-15 23:21] LABS: ALANINE AMINOTRANSFERASE 24 Units/L (12-78); ALBUMIN 2.7 g/dL (3.4-5.0); ALKALINE PHOSPHATASE 89 Units/L (46-116); ASPARTATE AMINO TRANSFERASE 21 Units/L (15-37); BLOOD UREA NITROGEN 19 mg/dL (7-18); CALCIUM 8.3 mg/dL (8.5-10.1); CARBON DIOXIDE 25.1 mmol/L (21-32); CHLORIDE 102 mmol/L (98-107); CKMB % 3.5 % (<4); COR CA(FOR HYPOALB) 9.3 mg/dL (8.5-10.1); CREATINE KINASE 54 Units/L (26-192); CREATINE KINASE MB 1.9 ng/mL (0-4.0); CREATININE 1.05 mg/dL (0.55-1.02); SODIUM 134 mmol/L (136-145); TOTAL PROTEIN 5.9 g/dL (6.4-8.2); TROPONIN I 0.12 ng/mL (0-1.5); eGFR NON BLACK RACES 53 (>60)
[2021-06-16] MEDS ORDERED: LASIX IVP ONE ×3 (00:29→10:22)
[2021-06-16] MEDS ORDERED: DUONEB 0.5 MG/3 MG (3 mL) NEB ONE ×2 (01:29→01:33)
[2021-06-16 01:47] LABS: CKMB % 4.8 % (<4); CREATINE KINASE MB 2.4 ng/mL (0-4.0); TROPONIN I 0.2 ng/mL (0-1.5)
[2021-06-16 02:04] LABS: BILIRUBIN,URINE NEGATIVE (NEGATIVE); BLOOD/HEMOGLOBIN,URINE 4+ (NEGATIVE); GLUCOSE, URINE NEGATIVE (NEGATIVE); KETONES,URINE NEGATIVE (NEGATIVE); LEUKOCYTE ESTERASE ,URINE 3+ (NEGATIVE); NITRITES,URINE NEGATIVE (NEGATIVE); PH,URINE 6.5 (5.0 - 8.0); UROBILINOGEN,URINE NORMAL (NORMAL)
[2021-06-16 02:09] LABS: PROTEIN,URINE 1+ (NEGATIVE)
[2021-06-16 02:12] LABS: APPEARANCE,URINE CLEAR (CLEAR); COLOR,URINE PALE YELLOW (YELLOW)
[2021-06-16 02:13] LABS: BACTERIA,URINE 1+ /HPF (NEGATIVE); SQUAMOUS EPITHELIAL CELL,UR RARE /HPF (NEGATIVE)
--- NOTE | 2021-06-16 02:43 | RAD ---
HISTORYsob Relevant Clinical InformationSTUDYCHEST, 1 [id number]/01/2021FINDINGSThe trachea is midline. The cardiac silhouette is mildly enlarged.. The lungs are clear without focal infiltrate or effusion. Pulmonary vasculature within normal limits. No pneumothorax. The bony thorax is unremarkable.IMPRESSIONMild cardiomegaly.No active cardiopulmonary diseaseElectronically signed by: Ashutosh Venegas (Jun 16, 2021 02:40:47)
[2021-06-16] MEDS ORDERED: PHENERGAN INJ 25 MG IM PRN (04:35)
[2021-06-16] MEDS ORDERED: CATAPRES-TTS-3 TD SCH (04:35)
[2021-06-16 05:16] VITALS: BMI 26.4
[2021-06-16 05:53] LABS: BASOPHILS % (AUTO) 0.5 % (0.2-1.0); EOSINOPHILS # (AUTO) 0.3 x10^3/uL (0.0-0.2); EOSINOPHILS % (AUTO) 3.3 % (0.9-2.9); HEMATOCRIT 40.1 % (36.0-47.0); HEMOGLOBIN 13.7 g/dL (12.0-16.0); LYMPHOCYTES # (AUTO) 1.1 X10^3/uL (1.3-2.9); LYMPHOCYTES % (AUTO) 14.6 % (21.0-51.0); MEAN CORPUSCULAR HEMOGLOBIN 30.4 pg (27.0-34.0); MEAN CORPUSCULAR HGB CONC 34.1 g/dL (33.0-35.0); MEAN CORPUSCULAR VOLUME 89.3 fL (80.0-100.0); MEAN PLATELET VOLUME 7.6 fL (7.4-11.0); MONOCYTES # (AUTO) 1.3 x10^3/uL (0.3-0.8); MONOCYTES % (AUTO) 17.4 % (0.0-13.0); NEUTROPHILS # (AUTO) 4.9 x10^3/uL (2.2-4.8); NEUTROPHILS % (AUTO) 64.2 % (42.0-75.0); PLATELET COUNT 204 X10^3/uL (150.0-450.0); RED BLOOD COUNT 4.49 X10^6/uL (3.5-5.4); RED CELL DISTRIBUTION WIDTH 16.3 % (11.6-16.5); WHITE BLOOD COUNT 7.6 X10^3/uL (3.6-10.0)
[2021-06-16] MEDS ORDERED: CARBOXYMETHYLCELLULOSE SODIUM 1% OP SCH (06:00)
[2021-06-16] MEDS ORDERED: PATIENT'S HOME MEDICATION (Nut.Tx.Gluc.Intol,Lac-Free,Soy [Glucerna] Liquid) PO SCH (06:00)
[2021-06-16 06:03] LABS: ALANINE AMINOTRANSFERASE 28 Units/L (12-78); ALBUMIN 2.9 g/dL (3.4-5.0); ALKALINE PHOSPHATASE 92 Units/L (46-116); ASPARTATE AMINO TRANSFERASE 20 Units/L (15-37); BLOOD UREA NITROGEN 20 mg/dL (7-18); CALCIUM 8.6 mg/dL (8.5-10.1); CARBON DIOXIDE 26.3 mmol/L (21-32); CHLORIDE 102 mmol/L (98-107); COR CA(FOR HYPOALB) 9.5 mg/dL (8.5-10.1); CREATININE 1.03 mg/dL (0.55-1.02); SODIUM 137 mmol/L (136-145); TOTAL PROTEIN 5.7 g/dL (6.4-8.2); eGFR NON BLACK RACES 54 (>60)
[2021-06-16] MEDS: ULTRAM PO SCH ×2 (06:11→21:24)
[2021-06-16 06:31] LABS: CKMB % 4.9 % (<4); CREATINE KINASE MB 2.6 ng/mL (0-4.0); TROPONIN I 0.23 ng/mL (0-1.5)
[2021-06-16] MEDS: APRESOLINE TAB 25 MG PO SCH ×3 (06:31→21:23)
[2021-06-16] MEDS: COLACE CAP 100 MG PO SCH ×2 (08:44→21:21)
[2021-06-16] MEDS: ELIQUIS PO SCH ×2 (08:45→21:22)
[2021-06-16] MEDS: NEURONTIN CAP 300 MG PO SCH ×2 (08:47→21:26)
[2021-06-16] MEDS: HEMOCYTE-PLUS PO SCH (08:47)
[2021-06-16] MEDS: K-DUR TAB 20 MEQ PO SCH (08:48)
[2021-06-16] MEDS: ZESTRIL TAB 40 MG PO SCH ×2 (08:48→21:23)
[2021-06-16] MEDS: PROTONIX TAB 40 MG PO SCH ×2 (08:48→21:25)
[2021-06-16] MEDS: SYNTHROID 75 mcg TAB PO SCH (08:48)
[2021-06-16] MEDS ORDERED: [UNRECOGNIZED DRUG - OTHER] IN SCH (09:00)
[2021-06-16] MEDS ORDERED: BUDESONIDE FORMOTEROL IN SCH (09:00)
[2021-06-16] MEDS ORDERED: SYMBICORT INH 80/4.5 mcg IN SCH (09:00)
[2021-06-16] MEDS ORDERED: CORTEF PO SCH ×2 (09:00→11:30)
[2021-06-16] MEDS ORDERED: MULTIVITAMIN PO SCH (09:00)
[2021-06-16] MEDS: ARTIFICIAL TEARS DROPS EACHEYE SCH ×3 (09:06→21:23)
[2021-06-16] MEDS: NITRODUR PATCH 0.4 MG/HR TD SCH (09:08)
[2021-06-16] MEDS: VITAMIN C PO SCH ×2 (09:11→21:24)
[2021-06-16] MEDS: CITRACAL + VITAMIN D PO SCH (09:12)
[2021-06-16] MEDS: MYLICON TAB 80 MG CHEW PO SCH ×2 (09:12→21:26)
[2021-06-16] MEDS: TAB-A-VITE PO SCH (09:13)
[2021-06-16] MEDS: MEGACE PO SCH ×2 (09:14→21:26)
[2021-06-16] MEDS: XALATAN OP SCH ×2 (09:15→21:24)
[2021-06-16] MEDS: TOPROL XL PO SCH ×2 (09:15→21:25)
[2021-06-16] MEDS ORDERED: ROCEPHIN 1 GRAM IV PREMIX 0 G/0 ML IV.SOLN. IV ONE (09:17)
[2021-06-16] MEDS: MIRALAX POWDER (1 DOSE 17 G) PO SCH ×2 (10:16→10:25)
[2021-06-16] MEDS ORDERED: NS 250 ML IV 250 ML IV ONE (10:58)
[2021-06-16] MEDS: SOLU-Medrol 40 MG VIAL IVP SCH ×3 (11:05→21:23)
[2021-06-16] MEDS: INVANZ INJ 1 GM VIAL 1 GM in NS 100 ML IV + SPIKE MINIBAG* 100 ML IV SCH (11:05)
[2021-06-16 11:32] LABS: CKMB % 6.6 % (<4); CREATINE KINASE MB 3.5 ng/mL (0-4.0); TROPONIN I 0.35 ng/mL (0-1.5)
[2021-06-16] MEDS: LEVAQUIN PREMIX IV 500 MG 500 MG/100 ML BAG IV SCH (12:00)
--- NOTE | 2021-06-16 12:14 | DR.H&P ---
H&P - History & Physical for Day of: H&P Date: 06/16/21 - Chief Complaint Chief Complaint: SOB, WHEEZING - History of Present Illness History of Present Illness: IS A 85 YEAR OLD PATIENT OF OURS. SHE IS A RESIDENT OF [facility]. SHE PRESENTED TO THE ER FROM THE [facility] WITH COMPLAINTS OF SHORTNESS OF BREATH AND WHEEZING. SYMPTOMS REPORTEDLY STARTED EARLIER IN THE DAY. SHE ALSO REPORTED PAIN UNDER THE LEFT BREAST. PAIN WAS RATED DULL, PRESSURE, AND WAS RATED A 5/10. SHE IS CURRENTLY ON OXYGEN VIA NASAL CANNULA AT 2 LITERS/MINUTE. HER PMH INCLUDES: GLAUCOMA, CVA, CAD, CHF, A-FIB, HTN, ASTHMA, BRONCHITIS, PULMONARY EMBOLISM, GERD, PUD, DM I, HYPOTHYROIDISM, OSTEOARTHRITIS, ANEMIA, CARDIAC STENTS. ON ARRIVAL, VITALS WERE 99.0-100-34-98%-155/85. LABS WERE OBTAINED. ABNORMAL LAB VALUES INCLUDE THE FOLLOWING: SODIUM 134, BUN 19, CREATININE 1.05, GLUCOSE 106, CALCIUM 8.3, BNP 1180, TOTAL PROTEIN 5.9, ALBUMIN 2.7. CARDIAC ENZYMES WERE WITHIN NORMAL LIMITS. A URINALYSIS WAS OBTAINED AND REVEALED: WBC 10-20, RBC 3-5, LEUKOCYTES 3+, BACTERIA 1+, OCCULT BLOOD 4+, PROTEIN 1+. URINE CULTURES WERE SET UP. RSV POSITIVE. COVID AND INFLUENZA NEGATIVE. A CHEST XRAY WAS OBTAINED AND REVEALED: Mild stable cardiac enlargement. Nonspecific interstitial prominence which may represent chronic peribronchial thickening or a more acute congestive process. There is no evidence for localized pneumonia. IN THE ER, SHE WAS GIVEN LASIX 40MG IV X 1, DUONEB X 1. SHE WAS ADMITTED FOR TREATMENT OF CHF, SOB, RSV, UTI. SHE WAS STARTED ON LEVAQUIN 500MG IV DAILY, INVANZ 1G IV DAILY, PULMICORT NEB TX BID, ALBUTEROL NEB TX TID, SOLU-MEDROL 80MG IV Q8H, AND HER HOME MEDICATIONS WERE RESUMED. WE WILL REPEAT CARDIAC ENZYMES. OTHERWISE, WE PLAN TO FOLLOW UP WITH AM LABS AND CONTINUE TO MONITOR. TIME SPENT ON CLINICAL ASSESSMENT, REVIEWING LABS AND IMAGING, DECISION MAKING, AND DOCUMENTATION GREATER THAN 75 MINUTES. - Past Medical History Past Medical History: Coronary Artery Disease, Hypertension, Dyslipidemia, Diabetes, Depression, Hypothyroidism, Anemia, CVA, Asthma, GERD, Arthritis, CHF Additional Medical History: DVT, Sleep Apnea, Depression, Chronic Sinusitis, Allergic Rhinitis, Constipation, Edema, UTI's, Pneumonia, Arthritis, Cataracts, Osteoporosis, Glaucoma, Ear Infections, Gastrointestinal Ulcer, Cardiac Arrhythmia, Muscle Weakness, Osteoporsis, Restless leg syndrome - Past Surgical History Surgical History: Angioplasty/Stents, [employer] Surgery Additional Surgical History: Sinus surgery - Family History Family Medical History: Diabetes Mellitus, Coronary Artery Disease, Sudden Cardiac , Hypertension - Social History Does patient currently use any type of tobacco product: No Have you used tobacco products in the last 12 months: No Type of Tobacco Use: None Does any household member use tobacco: No Alcohol Use: None Drug Use: None - Medications Home Medications: tuberculin,PPD,multi-puncture Allergy (Verified 03/10/20 13:33) CONTINUE taking the following medications budesonide-formoterol [Symbicort] 2 inh INHALATION BID 06/15/21 [History] gabapentin 300 mg PO BID 06/15/21 [History] hydralazine 50 mg PO TID 06/15/21 [History] latanoprost 1 drp OPHTHALMIC (EYE) BID 06/15/21 [History] lisinopril 40 mg PO BID 06/15/21 [History] megestrol 20 mg PO BID 06/15/21 [History] metoprolol succinate 50 mg PO BID 06/15/21 [History] nitroglycerin 1 patch TOPICAL DAILY 06/15/21 [History] potassium chloride 20 meq PO DAILY 06/15/21 [History] - Review of Systems Constitutional: Weakness Eyes: No Symptoms Reported ENT: No Symptoms Reported Respiratory: Shortness of Breath, SOB with Excertion, Wheezing. denies: Cough Cardiovascular: No Symptoms Reported Gastrointestinal: No Symptoms Reported Genitourinary: No Symptoms Reported Musculoskeletal: No Symptoms Reported Skin: No Symptoms Reported Neurological: Weakness - Physical Exam Vital Signs: Temperature 97.5 F Pulse Rate [Left] 90 Pulse Rate 81 Respiratory Rate 24 Blood Pressure [Left Arm] 115/64 Blood Pressure [Right Arm] 181/88 Blood Pressure 155/85 O2 Sat by Pulse Oximetry 99 Oriented: Normal Eyes: Normal Ear: Normal Nose: Normal Throat: Normal Respiratory: Wheezes Throughout Cardiovascular: Normal : Normal Auscultation: Bowel Sounds: Normal Palpation: Normal Tenderness: Normal Skin: Decreased Turgur Musculoskeletal: Normal Psychiatric: Normal Mood Description: Calm Affect: Normal Speech Pattern: Clear - Assessment/Plan (1) CHF (congestive heart failure) Qualifiers: Heart failure type: unspecified Heart failure chronicity: acute on chronic Qualified Code(s): I50.9 - Heart failure, unspecified Status: Chronic Plan: ADMIT, LASIX 20MG IV X 1, LEVAQUIN 500MG IV DAILY, INVANZ 1G IV DAILY, PULMICORT NEB TX BID, ALBUTEROL NEB TX TID, SOLU-MEDROL 80MG IV Q8H, AND HER HOME MEDICATIONS WERE RESUMED. (2) RSV (respiratory syncytial virus infection) Status: Acute (3) Urinary tract infection Qualifiers: Urinary tract infection type: site unspecified Hematuria presence: without hematuria Qualified Code(s): N39.0 - Urinary tract infection, site not specified Status: Acute (4) Shortness of breath Status: Acute - Allergies Allergies/Adverse Reactions: Allergies Allergy/AdvReac Type Severity Reaction Status Date / Time tuberculin,PPD,multi-puncture Allergy Verified 03/10/20 13:33
[2021-06-16] MEDS ORDERED: PROVENTIL NEB TX 0.083% 2.5MG/ 3ML ONE (12:59)
[2021-06-16] MEDS: ACCUNEB 1.25 MG NEBULE NEB SCH ×3 (13:00→21:00)
[2021-06-16] MEDS: PULMICORT NEB TX 0.5 MG NEB SCH (21:00)
[2021-06-16] MEDS: LIPITOR TAB 20 MG PO SCH (21:22)
[2021-06-16] MEDS ORDERED: CARDIZEM CD 120 MG 24-HR PO ONE (22:53)
[2021-06-16] MEDS: CARDIZEM CD 120 MG 24-HR PO SCH (23:14)
[2021-06-16] MEDS ORDERED: BUTT CREAM (COMPOUND) ONE (23:20)
[2021-06-16] MEDS ORDERED: BUTT CREAM (COMPOUND) TOP PRN (23:52)
[2021-06-17 04:01] LABS: BASOPHILS % (AUTO) 0.2 % (0.2-1.0); HEMOGLOBIN 13.1 g/dL (12.0-16.0); LYMPHOCYTES # (AUTO) 0.2 X10^3/uL (1.3-2.9); LYMPHOCYTES % (AUTO) 5.2 % (21.0-51.0); MEAN CORPUSCULAR HEMOGLOBIN 30.2 pg (27.0-34.0); MEAN CORPUSCULAR HGB CONC 32.9 g/dL (33.0-35.0); MEAN CORPUSCULAR VOLUME 91.7 fL (80.0-100.0); MEAN PLATELET VOLUME 7.4 fL (7.4-11.0); MONOCYTES # (AUTO) 0.3 x10^3/uL (0.3-0.8); MONOCYTES % (AUTO) 10.3 % (0.0-13.0); NEUTROPHILS # (AUTO) 2.6 x10^3/uL (2.2-4.8); NEUTROPHILS % (AUTO) 84.3 % (42.0-75.0); PLATELET COUNT 165 X10^3/uL (150.0-450.0); RED BLOOD COUNT 4.36 X10^6/uL (3.5-5.4); RED CELL DISTRIBUTION WIDTH 16.6 % (11.6-16.5); WHITE BLOOD COUNT 3.1 X10^3/uL (3.6-10.0)
[2021-06-17 04:12] LABS: ALBUMIN 2.7 g/dL (3.4-5.0); CALCIUM 8.3 mg/dL (8.5-10.1); CARBON DIOXIDE 22.4 mmol/L (21-32); COR CA(FOR HYPOALB) 9.3 mg/dL (8.5-10.1); CREATININE 1.84 mg/dL (0.55-1.02); TOTAL PROTEIN 6.2 g/dL (6.4-8.2)
[2021-06-17] MEDS ORDERED: HumuLIN R SC PRN (04:20)
[2021-06-17] MEDS: ARTIFICIAL TEARS DROPS EACHEYE SCH ×3 (05:24→22:50)
[2021-06-17] MEDS: APRESOLINE TAB 25 MG PO SCH ×3 (05:24→22:50)
[2021-06-17] MEDS: HumuLIN R SUBCUT PRN ×4 (05:25→20:36)
[2021-06-17] MEDS: SOLU-Medrol 40 MG VIAL IVP SCH ×3 (05:25→22:50)
[2021-06-17] MEDS: ACCUNEB 1.25 MG NEBULE NEB SCH ×3 (06:19→21:50)
--- NOTE | 2021-06-17 06:32 | RAD ---
HISTORYSOBSTUDYCHEST, 1 [id number]/12/2021.TECHNIQUEAP view of the chestFINDINGSThe cardiac silhouette is stably enlarged. Mediastinal contours appear stable. No consolidation or segmental lung collapse. No definite pleural effusion or pneumothorax.IMPRESSIONNo acute pulmonary process. Cardiomegaly.Electronically signed by: Emeka Barron (Jun 17, 2021 06:30:16)
[2021-06-17] MEDS: ELIQUIS PO SCH ×2 (08:57→20:32)
[2021-06-17] MEDS: CITRACAL + VITAMIN D PO SCH (08:57)
[2021-06-17] MEDS: COLACE CAP 100 MG PO SCH ×2 (08:57→20:30)
[2021-06-17] MEDS: K-DUR TAB 20 MEQ PO SCH (08:58)
[2021-06-17] MEDS: MEGACE PO SCH ×2 (08:58→20:35)
[2021-06-17] MEDS: LEVAQUIN PREMIX IV 500 MG 500 MG/100 ML BAG IV SCH (08:58)
[2021-06-17] MEDS: HEMOCYTE-PLUS PO SCH (08:58)
[2021-06-17] MEDS: INVANZ INJ 1 GM VIAL 1 GM in NS 100 ML IV + SPIKE MINIBAG* 100 ML IV SCH (08:58)
[2021-06-17] MEDS: PROTONIX TAB 40 MG PO SCH ×2 (08:59→20:35)
[2021-06-17] MEDS: NEURONTIN CAP 300 MG PO SCH ×2 (08:59→20:35)
[2021-06-17] MEDS: MYLICON TAB 80 MG CHEW PO SCH ×2 (08:59→20:35)
[2021-06-17] MEDS: TOPROL XL PO SCH ×2 (09:00→20:34)
[2021-06-17] MEDS: TAB-A-VITE PO SCH (09:00)
[2021-06-17] MEDS: SYNTHROID 75 mcg TAB PO SCH (09:00)
[2021-06-17] MEDS: VITAMIN C PO SCH ×2 (09:00→20:30)
[2021-06-17] MEDS: ZESTRIL TAB 40 MG PO SCH ×2 (09:01→20:30)
[2021-06-17] MEDS: XALATAN OP SCH ×2 (09:01→20:30)
[2021-06-17] MEDS: LEVEMIR SC SCH (09:02)
[2021-06-17] MEDS: NITRODUR PATCH 0.4 MG/HR TD SCH (09:11)
[2021-06-17] MEDS: PULMICORT NEB TX 0.5 MG NEB SCH ×2 (09:25→21:50)
[2021-06-17] MEDS: MIRALAX POWDER (1 DOSE 17 G) PO SCH (09:35)
--- NOTE | 2021-06-17 12:34 | PCM.PROG ---
Progress Note - Progress Note for Day of Date of Exam: 06/17/21 - Subjective Subjective: WAS ADMITTED TO THE HOSPITAL YESTERDAY FOR TREATMENT OF CHF, RSV, UTI, AND SOB. TODAY, SHE IS ALERT AND ORIENTED, LYING IN BED ON MORNING ROUNDS. SHE CONTINUES WITH COMPLAINTS OF SHORTNESS OF BREATH AND WEAKNESS THIS MORNING. SHE DOES ADMIT TO SLIGHT IMPROVEMENT IN SYMPTOMS SINCE AD MISSION. SHE IS CURRENTLY UTILIZING OXYGEN VIA NASAL CANNULA AT 2 LITERS/MINUTE. ON EXAMINATION, HEART IS REGULAR IN RATE AND RHYTHM. BILATERAL LUNGS ARE NOTED WITH DIMINISHED LUNG SOUNDS THROUGHOUT. ABDOMEN IS ROUND, SOFT, AND NON-TENDER WITH NORMAL BOWEL SOUNDS NOTED IN ALL QUADRANTS. HER VITALS THIS MORNING ARE: 99.0-82-20-95%-115/62. LABS WERE OBTAINED. ABNORMAL LAB VALUES INCLUDE THE FOLLOWING: WBC 3.1, SODIUM 129, CHLORIDE 95, BUN 32, CREATININE 1.84, GLUCOSE 562, CALCIUM 8.3, AST 14, BNP 964, TOTAL PROTEIN 6.2, ALBUMIN 2.7. URINE CULTURE IS PENDING. CHEST XRAY WAS REPEATED AND REVEALED: The cardiac silhouette is stably enlarged. Mediastinal contours appear stable. No consolidation or segmental lung collapse. No definite pleural effusion or pneumothorax. SHE IS CURRENTLY RECEIVING LEVAQUIN 500MG IV DAILY, INVANZ 1G IV DAILY, PULMICORT NEB TX BID, ALBUTEROL NEB TX TID, SOLU-MEDROL 80MG IV Q8H, AND HER HOME MEDICATIONS WERE RESUMED. TODAY, WE WILL DECREASE SOLU-MEDROL TO 20MG IV Q8H DUE TO INCREASED BLOOD GLUCOSE LEVELS. OTHERWISE, WE WILL FOLLOW UP WITH AM LABS AND CONTINUE TO MONITOR. TIME SPENT ON CLINICAL ASSESSMENT, REVIEWING LABS AND IMAGING, DECISION MAKING, AND DOCUMENTATION GREATER THAN 45 MINUTES. - Past Medical Family Social History Past Med/Fam/Surg Hx: No changes since H&P Allergies: Allergies tuberculin,PPD,multi-puncture Allergy (Verified 03/10/20 13:33) - Review of Systems ROS: No change since H&P - Vital Signs and I&O's Vital Signs: Temperature 98.8 F Pulse Rate [Left] 96 Pulse Rate 106 Respiratory Rate 22 Blood Pressure [Left Arm] 128/80 Blood Pressure [Right Arm] 181/88 Blood Pressure 155/85 O2 Sat by Pulse Oximetry 95 Intake and Output: Intake & Output 09/12/06/16/21 06/17/21 06/18/21 11:59 11:59 11:59 11:59 Intake Total 1390 / 1390 Output Total 1300 / 1300 1950 / 1950 Balance -1300 / -1300 -560 / -560 - Physical Exam Oriented: Normal Eyes: Normal Ear: Normal Nose: Normal Throat: Normal Respiratory: Diminished Cardiovascular: Normal : Normal Auscultation: Bowel Sounds: Normal Palpation: Normal Tenderness: Normal Skin: Decreased Turgur Musculoskeletal: Normal Psychiatric: Normal Mood Description: Calm Affect: Normal Speech Pattern: Clear, Appropriate - Laboratory and Diagnostics Result Diagrams: 06/17/21 03:51 06/17/21 05:00 Labs: 06/16/21 01:50 Urine,Catheterized Urine Culture - Preliminary Laboratory WBC 3.1 X10^3/uL (3.6-10.0) L 06/17/21 03:51 RBC 4.36 X10^6/uL (3.5-5.4) 06/17/21 03:51 Hgb 13.1 g/dL (12.0-16.0) 06/17/21 03:51 Hct 40.0 % (36.0-47.0) 06/17/21 03:51 MCV 91.7 fL (80.0-100.0) 06/17/21 03:51 MCH 30.2 pg (27.0-34.0) 06/17/21 03:51 MCHC 32.9 g/dL (33.0-35.0) L 06/17/21 03:51 RDW 16.6 % (11.6-16.5) H 06/17/21 03:51 Plt Count 165 X10^3/uL (150.0-450.0) 06/17/21 03:51 MPV 7.4 fL (7.4-11.0) 06/17/21 03:51 Neut % (Auto) 84.3 % (42.0-75.0) H 06/17/21 03:51 Lymph % (Auto) 5.2 % (21.0-51.0) L 06/17/21 03:51 [place] % (Auto) 10.3 % (0.0-13.0) 06/17/21 03:51 Eos % (Auto) 0.0 % (0.9-2.9) L 06/17/21 03:51 Baso % (Auto) 0.2 % (0.2-1.0) 06/17/21 03:51 Neut # (Auto) 2.6 x10^3/uL (2.2-4.8) 06/17/21 03:51 Lymph # (Auto) 0.2 X10^3/uL (1.3-2.9) L 06/17/21 03:51 [place] # (Auto) 0.3 x10^3/uL (0.3-0.8) 06/17/21 03:51 Eos # (Auto) 0.0 x10^3/uL (0.0-0.2) 06/17/21 03:51 Baso # (Auto) 0.0 X10^3/uL (0.0-0.1) 06/17/21 03:51 Absolute Nucleated RBC 0.0 /100WBC 06/17/21 03:51 PT 15.3 SECONDS (11.8-14.3) 06/16/21 04:37 INR Target Range - 06/16/21 04:37 INR 1.27 (0.8-1.3) 06/16/21 04:37 APTT 39.6 SECONDS (22.9-36.5) H 06/16/21 04:37 PTT Comment - 06/16/21 04:37 Sodium 129 mmol/L (136-145) L 06/17/21 03:51 Corrected Sodium 140 mmol/L (136-145) 06/17/21 03:51 Potassium 5.1 mmol/L (3.5-5.1) 06/17/21 03:51 Chloride 95 mmol/L (98-107) L 06/17/21 03:51 Carbon Dioxide 22.4 mmol/L (21-32) 06/17/21 03:51 BUN 32 mg/dL (7-18) H 06/17/21 03:51 Creatinine 1.84 mg/dL (0.55-1.02) H 06/17/21 03:51 Est GFR (MDRD) Af Amer 34 (>60) L 06/17/21 03:51 Est GFR (MDRD) Non-Af 28 (>60) L 06/17/21 03:51 Glucose 532 mg/dL (65-99) H* 06/17/21 05:00 POC Glucose (mg/dL) 320 mg/dL (65-99) H 06/17/21 11:06 Calcium 8.3 mg/dL (8.5-10.1) L 06/17/21 03:51 Corrected Calcium 9.3 mg/dL (8.5-10.1) 06/17/21 03:51 Magnesium 2.0 mg/dL (1.7-2.9) 06/16/21 04:37 Total Bilirubin 0.60 mg/dL (0.2-1.0) 06/17/21 03:51 AST 14 Units/L (15-37) L 06/17/21 03:51 ALT 24 Units/L (12-78) 06/17/21 03:51 Alkaline Phosphatase 91 Units/L (46-116) 06/17/21 03:51 Creatine Kinase 53 Units/L (26-192) 06/16/21 10:55 CK-MB (CK-2) 3.5 ng/mL (0-4.0) 06/16/21 10:55 CK/CKMB % Calc 6.6 % (<4) 06/16/21 10:55 Troponin I 0.35 ng/mL (0-1.5) 06/16/21 10:55 B-Natriuretic Peptide 964 pg/mL (0-79) H* 06/17/21 03:51 Total Protein 6.2 g/dL (6.4-8.2) L 06/17/21 03:51 Albumin 2.7 g/dL (3.4-5.0) L 06/17/21 03:51 Globulin 3.5 g/dL (2.5-4.5) 06/17/21 03:51 Albumin/Globulin Ratio 0.8 Ratio (1.1-2.1) L 06/17/21 03:51 Specimen Type Catherized urine 06/16/21 01:50 Urine Color Pale yellow (YELLOW) 06/16/21 01:50 Urine Appearance Clear (CLEAR) 06/16/21 01:50 Urine pH 6.5 (5.0 - 8.0) 06/16/21 01:50 Ur Specific [place] 1.010 (1.000-1.030) 06/16/21 01:50 Urine Protein 1+ (NEGATIVE) 06/16/21 01:50 Urine Glucose (UA) Negative (NEGATIVE) 06/16/21 01:50 Urine Ketones Negative (NEGATIVE) 06/16/21 01:50 Urine Occult Blood 4+ (NEGATIVE) 06/16/21 01:50 Urine Nitrite Negative (NEGATIVE) 06/16/21 01:50 Urine Bilirubin Negative (NEGATIVE) 06/16/21 01:50 Urine Urobilinogen Normal (NORMAL) 06/16/21 01:50 Ur Leukocyte Esterase 3+ (NEGATIVE) 06/16/21 01:50 Urine RBC 3-5 /HPF (0-3) A 06/16/21 01:50 Urine WBC 10-20 /HPF (0-5) A 06/16/21 01:50 Ur Squamous Epith Cells Rare /HPF (NEGATIVE) 06/16/21 01:50 Urine Bacteria 1+ /HPF (NEGATIVE) 06/16/21 01:50 Ur Culture Indicated? Yes/culture set up 06/16/21 01:50 SARS-CoV-2 (PCR) Negative (NEGATIVE) 06/16/21 01:45 Influenza Type A (PCR) Negative (NEGATIVE) 06/16/21 01:45 Influenza Type B (PCR) Negative (NEGATIVE) 06/16/21 01:45 RSV (PCR) Positive (NEGATIVE) A 06/16/21 01:45 - Plan (1) CHF (congestive heart failure) Status: Chronic Qualifiers: Heart failure type: unspecified Heart failure chronicity: acute on chronic Qualified Code(s): I50.9 - Heart failure, unspecified Plan: LEVAQUIN 500MG IV DAILY, INVANZ 1G IV DAILY, PULMICORT NEB TX BID, ALBUTEROL NEB TX TID, SOLU-MEDROL 20MG IV Q8H, AND HER HOME MEDICATIONS WERE RESUMED. (2) RSV (respiratory syncytial virus infection) Status: Acute (3) Urinary tract infection Status: Acute Qualifiers: Urinary tract infection type: site unspecified Hematuria presence: without hematuria Qualified Code(s): N39.0 - Urinary tract infection, site not specified (4) Shortness of breath Status: Acute
[2021-06-17] MEDS ORDERED: SNACK - Diabetic Appropriate PO SCH (20:00)
[2021-06-17] MEDS: CARDIZEM CD 120 MG 24-HR PO SCH (20:29)
[2021-06-17] MEDS: ULTRAM PO SCH (20:33)
[2021-06-17] MEDS: LIPITOR TAB 20 MG PO SCH (20:35)
[2021-06-18 04:39] LABS: BASOPHILS % (AUTO) 0.2 % (0.2-1.0); HEMATOCRIT 37.6 % (36.0-47.0); HEMOGLOBIN 12.7 g/dL (12.0-16.0); LYMPHOCYTES # (AUTO) 0.3 X10^3/uL (1.3-2.9); LYMPHOCYTES % (AUTO) 4.6 % (21.0-51.0); MEAN CORPUSCULAR HEMOGLOBIN 30.2 pg (27.0-34.0); MEAN CORPUSCULAR HGB CONC 33.7 g/dL (33.0-35.0); MEAN CORPUSCULAR VOLUME 89.5 fL (80.0-100.0); MEAN PLATELET VOLUME 7.7 fL (7.4-11.0); MONOCYTES # (AUTO) 0.3 x10^3/uL (0.3-0.8); MONOCYTES % (AUTO) 4.8 % (0.0-13.0); NEUTROPHILS # (AUTO) 5.5 x10^3/uL (2.2-4.8); NEUTROPHILS % (AUTO) 90.4 % (42.0-75.0); PLATELET COUNT 134 X10^3/uL (150.0-450.0); WHITE BLOOD COUNT 6.1 X10^3/uL (3.6-10.0)
[2021-06-18 04:49] LABS: ALBUMIN 2.7 g/dL (3.4-5.0); CALCIUM 8.3 mg/dL (8.5-10.1); CARBON DIOXIDE 21.5 mmol/L (21-32); COR CA(FOR HYPOALB) 9.3 mg/dL (8.5-10.1); CREATININE 1.6 mg/dL (0.55-1.02)
[2021-06-18 05:01] LABS: BAND NEUTROPHILS % 6 % (0-10); PLATELET MORPHOLOGY COMMENT NORMAL (NORMAL)
[2021-06-18] MEDS: ACCUNEB 1.25 MG NEBULE NEB SCH ×3 (05:09→20:50)
[2021-06-18] MEDS: HumuLIN R SUBCUT PRN ×4 (05:40→23:03)
[2021-06-18] MEDS: APRESOLINE TAB 25 MG PO SCH ×3 (06:04→22:00)
[2021-06-18] MEDS: SOLU-Medrol 40 MG VIAL IVP SCH ×3 (06:06→22:00)
[2021-06-18] MEDS: ARTIFICIAL TEARS DROPS EACHEYE SCH (06:06)
--- NOTE | 2021-06-18 06:22 | RAD ---
HISTORYSOBSTUDYCHEST, 1 [id number]/14/2021.TECHNIQUEAP view of the chestFINDINGSThe cardiac silhouette is stably enlarged. Mediastinal contours appear stable. No consolidation or segmental lung collapse. No pleural effusion or pneumothorax.IMPRESSIONCardiomegaly. No acute pulmonary process.Electronically signed by: Emeka Barron (Jun 18, 2021 06:20:46)
[2021-06-18] MEDS ORDERED: LASIX IVP ONE (08:10)
[2021-06-18] MEDS: K-DUR TAB 20 MEQ PO SCH (08:17)
[2021-06-18] MEDS: ELIQUIS PO SCH (09:00)
[2021-06-18] MEDS: HEMOCYTE-PLUS PO SCH (09:00)
[2021-06-18] MEDS: COLACE CAP 100 MG PO SCH (09:00)
[2021-06-18] MEDS: INVANZ INJ 1 GM VIAL 1 GM in NS 100 ML IV + SPIKE MINIBAG* 100 ML IV SCH (09:00)
[2021-06-18] MEDS: CITRACAL + VITAMIN D PO SCH (09:00)
[2021-06-18] MEDS: LEVAQUIN PREMIX IV 500 MG 500 MG/100 ML BAG IV SCH (09:01)
[2021-06-18] MEDS: MEGACE PO SCH (09:01)
[2021-06-18] MEDS: LEVEMIR SC SCH (09:01)
[2021-06-18] MEDS: NITRODUR PATCH 0.4 MG/HR TD SCH (09:02)
[2021-06-18] MEDS: MIRALAX POWDER (1 DOSE 17 G) PO SCH (09:02)
[2021-06-18] MEDS: NEURONTIN CAP 300 MG PO SCH (09:02)
[2021-06-18] MEDS: MYLICON TAB 80 MG CHEW PO SCH (09:02)
[2021-06-18] MEDS: ROBITUSSIN DM PO SCH ×4 (09:03→21:00)
[2021-06-18] MEDS: SYNTHROID 75 mcg TAB PO SCH (09:03)
[2021-06-18] MEDS: TOPROL XL PO SCH (09:03)
[2021-06-18] MEDS: TAB-A-VITE PO SCH (09:03)
[2021-06-18] MEDS: PROTONIX TAB 40 MG PO SCH (09:03)
[2021-06-18] MEDS: ZESTRIL TAB 40 MG PO SCH (09:04)
[2021-06-18] MEDS: XALATAN OP SCH (09:04)
[2021-06-18] MEDS: VITAMIN C PO SCH (09:04)
[2021-06-18] MEDS: PULMICORT NEB TX 0.5 MG NEB SCH ×2 (09:14→20:50)
[2021-06-18] MEDS ORDERED: PROVENTIL NEB TX 0.083% 2.5MG/ 3ML ONE (12:48)
[2021-06-18] MEDS: THERMOTABS PO SCH ×2 (13:30→23:03)
[2021-06-18] MEDS ORDERED: LASIX IVP SCH (17:00)
[2021-06-18] MEDS ORDERED: ACCUNEB 1.25 MG NEBULE ONE (19:44)
[2021-06-18] MEDS ORDERED: PULMICORT NEB TX 0.5 MG NEB ONE (19:44)
[2021-06-18] MEDS: SNACK - Diabetic Appropriate PO SCH (20:00)
[2021-06-19 05:13] LABS: BASOPHILS % (AUTO) 0.1 % (0.2-1.0); HEMATOCRIT 38.1 % (36.0-47.0); LYMPHOCYTES # (AUTO) 0.2 X10^3/uL (1.3-2.9); LYMPHOCYTES % (AUTO) 3.4 % (21.0-51.0); MEAN CORPUSCULAR HEMOGLOBIN 30.1 pg (27.0-34.0); MEAN CORPUSCULAR VOLUME 88.6 fL (80.0-100.0); MEAN PLATELET VOLUME 7.2 fL (7.4-11.0); MONOCYTES # (AUTO) 0.4 x10^3/uL (0.3-0.8); MONOCYTES % (AUTO) 6.6 % (0.0-13.0); NEUTROPHILS # (AUTO) 5.1 x10^3/uL (2.2-4.8); NEUTROPHILS % (AUTO) 89.9 % (42.0-75.0); PLATELET COUNT 172 X10^3/uL (150.0-450.0); RED CELL DISTRIBUTION WIDTH 15.9 % (11.6-16.5); WHITE BLOOD COUNT 5.7 X10^3/uL (3.6-10.0)
[2021-06-19 05:21] LABS: ALBUMIN 2.9 g/dL (3.4-5.0); CALCIUM 8.5 mg/dL (8.5-10.1); CARBON DIOXIDE 23.8 mmol/L (21-32); COR CA(FOR HYPOALB) 9.4 mg/dL (8.5-10.1); CREATININE 1.76 mg/dL (0.55-1.02); TOTAL PROTEIN 6.3 g/dL (6.4-8.2)
--- NOTE | 2021-06-19 06:00 | RAD ---
HISTORYSOBSTUDYCHEST, 1 VIEWCOMPARISONOne day prior.TECHNIQUEAP view of the chestFINDINGSThe cardiac and mediastinal contours appear stable. No consolidation or segmental lung collapse. No pleural effusion or pneumothorax.IMPRESSIONStable enlarged cardiac silhouette. No acute pulmonary process.Electronically signed by: Emeka Barron (Jun 19, 2021 05:58:21)
[2021-06-19] MEDS: APRESOLINE TAB 25 MG PO SCH ×3 (06:04→22:36)
[2021-06-19] MEDS: ACCUNEB 1.25 MG NEBULE NEB SCH ×3 (06:04→21:42)
[2021-06-19] MEDS: SOLU-Medrol 40 MG VIAL IVP SCH ×3 (06:05→22:26)
[2021-06-19] MEDS: HumuLIN R SUBCUT PRN ×4 (06:34→22:27)
--- NOTE | 2021-06-19 08:53 | PCM.PROG ---
Progress Note - Progress Note for Day of Date of Exam: 06/18/21 - Subjective Subjective: WAS ADMITTED ON 06/16 FOR TREATMENT OF CHF, RSV, UTI, AND SOB. TODAY, SHE IS ALERT AND ORIENTED, LYING IN BED ON MORNING ROUNDS. SHE CONTINUES WITH COMPLAINTS OF SHORTNESS OF BREATH AND WEAKNESS THIS MORNING. SHE ALSO CONTINUES WITH A NON-PRODUCTIVE COUGH. SHE DOES ADMIT TO SLIGHT IMPROVEMENT IN SYMPTOMS SINCE ADMISSION. SHE IS CURRENTLY UTILIZING OXYGEN VIA NASAL CANNULA AT 2 LITERS/MINUTE. ON EXAMINATION, HEART IS REGULAR IN RATE AND RHYTHM. BILATERAL LUNGS ARE NOTED WITH DIMINISHED LUNG SOUNDS THROUGHOUT. ABDOMEN IS ROUND, SOFT, AND NON-TENDER WITH NORMAL BOWEL SOUNDS NOTED IN ALL QUADRANTS. HER VITALS THIS MORNING ARE: 98.8-88-20-98%-138/70. LABS WERE OBTAINED. ABNORMAL LAB VALUES INCLUDE THE FOLLOWING: PLT COUNT 134, SODIUM 127, POTASSIUM 5.2, CHLORIDE 96, BUN 47, CREATININE 1.60, GLUCOSE 244, CALCIUM 8.3, BNP 502, TOTAL PROTEIN 6.0, ALBUMIN 2.7. URINE CULTURE IS PENDING. CHEST XRAY WAS REPEATED AND REVEALED: CHEST XRAY REVEALED: Cardiomegaly. No acute pulmonary process. SHE IS CURRENTLY RECEIVING LEVAQUIN 500MG IV DAILY, INVANZ 1G IV DAILY, PULMICORT NEB TX BID, ALBUTEROL NEB TX TID, SOLU-MEDROL 20MG IV Q8H, AND HER HOME MEDICATIONS WERE RESUMED. TODAY, WE WILL ADMINISTER LASIX 20MG IV Q12H X 2 DOSES. OTHERWISE, WE WILL FOLLOW UP WITH AM LABS AND CONTINUE TO MONITOR. TIME SPENT ON CLINICAL ASSESSMENT, REVIEWING LABS AND IMAGING, DECISION MAKING, AND DOCUMENTATION GREATER THAN 45 MINUTES. - Past Medical Family Social History Past Med/Fam/Surg Hx: No changes since H&P Allergies: Allergies tuberculin,PPD,multi-puncture Allergy (Verified 03/10/20 13:33) - Review of Systems ROS: No change since H&P - Vital Signs and I&O's Vital Signs: Temperature 98.6 F Pulse Rate [Left] 83 Pulse Rate 103 Respiratory Rate 22 Blood Pressure [Left Arm] 135/84 Blood Pressure [Right Arm] 181/88 Blood Pressure 155/85 O2 Sat by Pulse Oximetry 97 Intake and Output: Intake & Output 06/16/21 06/17/21 06/18/21 06/19/21 11:59 11:59 11:59 11:59 Intake Total 1390 / 1390 1540 / 1540 1390 / 1390 Output Total 1300 / 1300 1950 / 1950 800 / 800 2024 Balance -1300 / -1300 -560 / -560 740 / 740 -635 / -635 - Physical Exam Oriented: Normal Eyes: Normal Ear: Normal Nose: Normal Throat: Normal Respiratory: Diminished Cardiovascular: Normal : Normal Auscultation: Bowel Sounds: Normal Tenderness: Normal Skin: Decreased Turgur Musculoskeletal: Normal Psychiatric: Normal Mood Description: Calm Affect: Normal Speech Pattern: Clear, Appropriate - Laboratory and Diagnostics Result Diagrams: 06/19/21 04:54 06/19/21 04:54 Labs: 06/16/21 01:50 Urine,Catheterized Urine Culture - Preliminary Escherichia Coli Laboratory WBC 5.7 X10^3/uL (3.6-10.0) 06/19/21 04:54 RBC 4.30 X10^6/uL (3.5-5.4) 06/19/21 04:54 Hgb 13.0 g/dL (12.0-16.0) 06/19/21 04:54 Hct 38.1 % (36.0-47.0) 06/19/21 04:54 MCV 88.6 fL (80.0-100.0) 06/19/21 04:54 MCH 30.1 pg (27.0-34.0) 06/19/21 04:54 MCHC 34.0 g/dL (33.0-35.0) 06/19/21 04:54 RDW 15.9 % (11.6-16.5) 06/19/21 04:54 Plt Count 172 X10^3/uL (150.0-450.0) 06/19/21 04:54 Plt Count Comment Decreased (ADEQUATE) A 06/18/21 04:19 MPV 7.2 fL (7.4-11.0) L 06/19/21 04:54 Neut % (Auto) 89.9 % (42.0-75.0) H 06/19/21 04:54 Lymph % (Auto) 3.4 % (21.0-51.0) L 06/19/21 04:54 [place] % (Auto) 6.6 % (0.0-13.0) 06/19/21 04:54 Eos % (Auto) 0.0 % (0.9-2.9) L 06/19/21 04:54 Baso % (Auto) 0.1 % (0.2-1.0) L 06/19/21 04:54 Neut # (Auto) 5.1 x10^3/uL (2.2-4.8) H 06/19/21 04:54 Lymph # (Auto) 0.2 X10^3/uL (1.3-2.9) L 06/19/21 04:54 [place] # (Auto) 0.4 x10^3/uL (0.3-0.8) 06/19/21 04:54 Eos # (Auto) 0.0 x10^3/uL (0.0-0.2) 06/19/21 04:54 Baso # (Auto) 0.0 X10^3/uL (0.0-0.1) 06/19/21 04:54 Absolute Nucleated RBC 0.0 /100WBC 06/19/21 04:54 Total Counted 100 06/18/21 04:19 Neutrophils % (Manual) 87 % (39-76) H 06/18/21 04:19 Band Neutrophils % 6 % (0-10) 06/18/21 04:19 Lymphocytes % (Manual) 2 % (13-43) L 06/18/21 04:19 Monocytes % (Manual) 5 % (4-9) 06/18/21 04:19 Plt Morphology Comment Normal (NORMAL) 06/18/21 04:19 RBC Morphology Normal (NORMAL) 06/18/21 04:19 PT 15.3 SECONDS (11.8-14.3) 06/16/21 04:37 INR Target Range - 06/16/21 04:37 INR 1.27 (0.8-1.3) 06/16/21 04:37 APTT 39.6 SECONDS (22.9-36.5) H 06/16/21 04:37 PTT Comment - 06/16/21 04:37 Sodium 129 mmol/L (136-145) L 06/19/21 04:54 Corrected Sodium 135 mmol/L (136-145) L 06/19/21 04:54 Potassium 4.3 mmol/L (3.5-5.1) 06/19/21 04:54 Chloride 97 mmol/L (98-107) L 06/19/21 04:54 Carbon Dioxide 23.8 mmol/L (21-32) 06/19/21 04:54 BUN 53 mg/dL (7-18) H 06/19/21 04:54 Creatinine 1.76 mg/dL (0.55-1.02) H 06/19/21 04:54 Est GFR (MDRD) Af Amer 35 (>60) L 06/19/21 04:54 Est GFR (MDRD) Non-Af 29 (>60) L 06/19/21 04:54 Glucose 365 mg/dL (65-99) H 06/19/21 04:54 POC Glucose (mg/dL) 342 mg/dL (65-99) H 06/18/21 19:13 Calcium 8.5 mg/dL (8.5-10.1) 06/19/21 04:54 Corrected Calcium 9.4 mg/dL (8.5-10.1) 06/19/21 04:54 Magnesium 2.0 mg/dL (1.7-2.9) 06/16/21 04:37 Total Bilirubin 0.50 mg/dL (0.2-1.0) 06/19/21 04:54 AST 22 Units/L (15-37) 06/19/21 04:54 ALT 37 Units/L (12-78) 06/19/21 04:54 Alkaline Phosphatase 92 Units/L (46-116) 06/19/21 04:54 Creatine Kinase 53 Units/L (26-192) 06/16/21 10:55 CK-MB (CK-2) 3.5 ng/mL (0-4.0) 06/16/21 10:55 CK/CKMB % Calc 6.6 % (<4) 06/16/21 10:55 Troponin I 0.35 ng/mL (0-1.5) 06/16/21 10:55 B-Natriuretic Peptide 876 pg/mL (0-79) H* 06/19/21 04:54 Total Protein 6.3 g/dL (6.4-8.2) L 06/19/21 04:54 Albumin 2.9 g/dL (3.4-5.0) L 06/19/21 04:54 Globulin 3.4 g/dL (2.5-4.5) 06/19/21 04:54 Albumin/Globulin Ratio 0.9 Ratio (1.1-2.1) L 06/19/21 04:54 Specimen Type Catherized urine 06/16/21 01:50 Urine Color Pale yellow (YELLOW) 06/16/21 01:50 Urine Appearance Clear (CLEAR) 06/16/21 01:50 Urine pH 6.5 (5.0 - 8.0) 06/16/21 01:50 Ur Specific [place] 1.010 (1.000-1.030) 06/16/21 01:50 Urine Protein 1+ (NEGATIVE) 06/16/21 01:50 Urine Glucose (UA) Negative (NEGATIVE) 06/16/21 01:50 Urine Ketones Negative (NEGATIVE) 06/16/21 01:50 Urine Occult Blood 4+ (NEGATIVE) 06/16/21 01:50 Urine Nitrite Negative (NEGATIVE) 06/16/21 01:50 Urine Bilirubin Negative (NEGATIVE) 06/16/21 01:50 Urine Urobilinogen Normal (NORMAL) 06/16/21 01:50 Ur Leukocyte Esterase 3+ (NEGATIVE) 06/16/21 01:50 Urine RBC 3-5 /HPF (0-3) A 06/16/21 01:50 Urine WBC 10-20 /HPF (0-5) A 06/16/21 01:50 Ur Squamous Epith Cells Rare /HPF (NEGATIVE) 06/16/21 01:50 Urine Bacteria 1+ /HPF (NEGATIVE) 06/16/21 01:50 Ur Culture Indicated? Yes/culture set up 06/16/21 01:50 SARS-CoV-2 (PCR) Negative (NEGATIVE) 06/16/21 01:45 Influenza Type A (PCR) Negative (NEGATIVE) 06/16/21 01:45 Influenza Type B (PCR) Negative (NEGATIVE) 06/16/21 01:45 RSV (PCR) Positive (NEGATIVE) A 06/16/21 01:45 - Plan (1) CHF (congestive heart failure) Status: Chronic Qualifiers: Heart failure type: unspecified Heart failure chronicity: acute on chronic Qualified Code(s): I50.9 - Heart failure, unspecified Plan: LEVAQUIN 500MG IV DAILY, INVANZ 1G IV DAILY, PULMICORT NEB TX BID, ALBUT JESSIKA NEB TX TID, SOLU-MEDROL 20MG IV Q8H, AND HER HOME MEDICATIONS WERE RESUMED. (2) RSV (respiratory syncytial virus infection) Status: Acute (3) Urinary tract infection Status: Acute Qualifiers: Urinary tract infection type: site unspecified Hematuria presence: without hematuria Qualified Code(s): N39.0 - Urinary tract infection, site not specified (4) Shortness of breath Status: Acute
[2021-06-19] MEDS: PULMICORT NEB TX 0.5 MG NEB SCH ×2 (09:41→21:42)
[2021-06-19] MEDS: MUCOMYST 20% 200 MG/ML NEB SCH ×2 (10:02→21:42)
[2021-06-19] MEDS: ROBITUSSIN DM PO SCH (10:03)
[2021-06-19] MEDS: INVANZ INJ 1 GM VIAL 1 GM in NS 100 ML IV + SPIKE MINIBAG* 100 ML IV SCH (10:03)
[2021-06-19] MEDS: THERMOTABS PO SCH (10:04)
--- NOTE | 2021-06-19 11:05 | PCM.PROG ---
Progress Note - Progress Note for Day of Date of Exam: 06/19/21 - Subjective Subjective: WAS ADMITTED ON 06/16 FOR TREATMENT OF CHF, RSV, UTI, AND SOB. TODAY, SHE IS ALERT AND ORIENTED, LYING IN BED ON MORNING ROUNDS. SHE CONTINUES WITH COMPLAINTS OF SHORTNESS OF BREATH AND WEAKNESS THIS MORNING. SHE ALSO CONTINUES WITH A NON-PRODUCTIVE COUGH. SHE IS CURRENTLY UTILIZING OXYGEN VIA NASAL CANNULA AT 2 LITERS/MINUTE. ON EXAMINATION, HEART IS REGULAR IN RATE AND RHYTHM. BILATERAL LUNGS ARE NOTED WITH DIMINISHED LUNG SOUNDS THROUGHOUT. ABDOMEN IS ROUND, SOFT, AND NON-TENDER WITH NORMAL BOWEL SOUNDS NOTED IN ALL QUADRANTS. HER VITALS THIS MORNING ARE: 98.7-105-22-95%-134/77. LABS WERE OBTAINED. ABNORMAL LAB VALUES INCLUDE THE FOLLOWING: SODIUM 129, CHLORIDE 97, BUN 53, CREATININE 1.76, GLUCOSE 365, BNP 876, TOTAL PROTEIN 6.3, ALBUMIN 2.9. URINE CULTURE REPORTS GROWTH OF E.COLI. CHEST XRAY WAS REPEATED AND REVEALED: CHEST XRAY REVEALED: Stable enlarged cardiac silhouette. No acute pulmonary process. SHE IS CURRENTLY RECEIVING LEVAQUIN 500MG IV DAILY, INVANZ 1G IV DAILY, PULMICORT NEB TX BID, ALBUTEROL NEB TX TID, SOLU-MEDROL 20MG IV Q8H, AND HER HOME MEDICATIONS WERE RESUMED. TODAY, WE WILL ADD ROBITUSSIN CF 5ML PO QID AND MUCOMYST IN NEB [place]. OTHERWISE, WE WILL FOLLOW UP WITH AM LABS AND CONTINUE TO MONITOR. TIME SPENT ON CLINICAL ASSESSMENT, REVIEWING LABS AND IMAGING, DECISION MAKING, AND DOCUMENTATION GREATER THAN 45 MINUTES. - Past Medical Family Social History Past Med/Fam/Surg Hx: No changes since H&P Allergies: Allergies tuberculin,PPD,multi-puncture Allergy (Verified 03/10/20 13:33) - Review of Systems ROS: No change since H&P - Vital Signs and I&O's Vital Signs: Temperature 98.7 F Pulse Rate [Left] 105 Pulse Rate 103 Respiratory Rate 22 Blood Pressure [Left Arm] 134/77 Blood Pressure [Right Arm] 181/88 Blood Pressure 155/85 O2 Sat by Pulse Oximetry 95 Intake and Output: Intake & Output 06/16/21 06/17/21 06/18/21 06/19/21 11:59 11:59 11:59 11:59 Intake Total 1390 / 1390 1540 / 1540 1390 / 1390 Output Total 1300 / 1300 1950 / 1950 800 / 800 2024 Balance -1300 / -1300 -560 / -560 740 / 740 -635 / -635 - Physical Exam Oriented: Normal Eyes: Normal Ear: Normal Nose: Normal Throat: Normal Respiratory: Diminished Cardiovascular: Normal : Normal Auscultation: Bowel Sounds: Normal Tenderness: Normal Skin: Decreased [place]urgur Musculoskeletal: Normal Psychiatric: Normal Mood Description: Calm Affect: Normal Speech Pattern: Clear, Appropriate - Laboratory and Diagnostics Result Diagrams: 06/19/21 04:54 06/19/21 04:54 Labs: 06/16/21 01:50 Urine,Catheterized Urine Culture - Final Escherichia Coli Escherichia Coli#2 Laboratory WBC 5.7 X10^3/uL (3.6-10.0) 06/19/21 04:54 RBC 4.30 X10^6/uL (3.5-5.4) 06/19/21 04:54 Hgb 13.0 g/dL (12.0-16.0) 06/19/21 04:54 Hct 38.1 % (36.0-47.0) 06/19/21 04:54 MCV 88.6 fL (80.0-100.0) 06/19/21 04:54 MCH 30.1 pg (27.0-34.0) 06/19/21 04:54 MCHC 34.0 g/dL (33.0-35.0) 06/19/21 04:54 RDW 15.9 % (11.6-16.5) 06/19/21 04:54 Plt Count 172 X10^3/uL (150.0-450.0) 06/19/21 04:54 Plt Count Comment Decreased (ADEQUATE) A 06/18/21 04:19 MPV 7.2 fL (7.4-11.0) L 06/19/21 04:54 Neut % (Auto) 89.9 % (42.0-75.0) H 06/19/21 04:54 Lymph % (Auto) 3.4 % (21.0-51.0) L 06/19/21 04:54 [place] % (Auto) 6.6 % (0.0-13.0) 06/19/21 04:54 Eos % (Auto) 0.0 % (0.9-2.9) L 06/19/21 04:54 Baso % (Auto) 0.1 % (0.2-1.0) L 06/19/21 04:54 Neut # (Auto) 5.1 x10^3/uL (2.2-4.8) H 06/19/21 04:54 Lymph # (Auto) 0.2 X10^3/uL (1.3-2.9) L 06/19/21 04:54 [place] # (Auto) 0.4 x10^3/uL (0.3-0.8) 06/19/21 04:54 Eos # (Auto) 0.0 x10^3/uL (0.0-0.2) 06/19/21 04:54 Baso # (Auto) 0.0 X10^3/uL (0.0-0.1) 06/19/21 04:54 Absolute Nucleated RBC 0.0 /100WBC 06/19/21 04:54 Total Counted 100 06/18/21 04:19 Neutrophils % (Manual) 87 % (39-76) H 06/18/21 04:19 Band Neutrophils % 6 % (0-10) 06/18/21 04:19 Lymphocytes % (Manual) 2 % (13-43) L 06/18/21 04:19 Monocytes % (Manual) 5 % (4-9) 06/18/21 04:19 Plt Morphology Comment Normal (NORMAL) 06/18/21 04:19 RBC Morphology Normal (NORMAL) 06/18/21 04:19 PT 15.3 SECONDS (11.8-14.3) 06/16/21 04:37 INR Target Range - 06/16/21 04:37 INR 1.27 (0.8-1.3) 06/16/21 04:37 APTT 39.6 SECONDS (22.9-36.5) H 06/16/21 04:37 PTT Comment - 06/16/21 04:37 Sodium 129 mmol/L (136-145) L 06/19/21 04:54 Corrected Sodium 135 mmol/L (136-145) L 06/19/21 04:54 Potassium 4.3 mmol/L (3.5-5.1) 06/19/21 04:54 Chloride 97 mmol/L (98-107) L 06/19/21 04:54 Carbon Dioxide 23.8 mmol/L (21-32) 06/19/21 04:54 BUN 53 mg/dL (7-18) H 06/19/21 04:54 Creatinine 1.76 mg/dL (0.55-1.02) H 06/19/21 04:54 Est GFR (MDRD) Af Amer 35 (>60) L 06/19/21 04:54 Est GFR (MDRD) Non-Af 29 (>60) L 06/19/21 04:54 Glucose 365 mg/dL (65-99) H 06/19/21 04:54 POC Glucose (mg/dL) 342 mg/dL (65-99) H 06/18/21 19:13 Calcium 8.5 mg/dL (8.5-10.1) 06/19/21 04:54 Corrected Calcium 9.4 mg/dL (8.5-10.1) 06/19/21 04:54 Magnesium 2.0 mg/dL (1.7-2.9) 06/16/21 04:37 Total Bilirubin 0.50 mg/dL (0.2-1.0) 06/19/21 04:54 AST 22 Units/L (15-37) 06/19/21 04:54 ALT 37 Units/L (12-78) 06/19/21 04:54 Alkaline Phosphatase 92 Units/L (46-116) 06/19/21 04:54 Creatine Kinase 53 Units/L (26-192) 06/16/21 10:55 CK-MB (CK-2) 3.5 ng/mL (0-4.0) 06/16/21 10:55 CK/CKMB % Calc 6.6 % (<4) 06/16/21 10:55 Troponin I 0.35 ng/mL (0-1.5) 06/16/21 10:55 B-Natriuretic Peptide 876 pg/mL (0-79) H* 06/19/21 04:54 Total Protein 6.3 g/dL (6.4-8.2) L 06/19/21 04:54 Albumin 2.9 g/dL (3.4-5.0) L 06/19/21 04:54 Globulin 3.4 g/dL (2.5-4.5) 06/19/21 04:54 Albumin/Globulin Ratio 0.9 Ratio (1.1-2.1) L 06/19/21 04:54 Specimen Type Catherized urine 06/16/21 01:50 Urine Color Pale yellow (YELLOW) 06/16/21 01:50 Urine Appearance Clear (CLEAR) 06/16/21 01:50 Urine pH 6.5 (5.0 - 8.0) 06/16/21 01:50 Ur Specific [place] 1.010 (1.000-1.030) 06/16/21 01:50 Urine Protein 1+ (NEGATIVE) 06/16/21 01:50 Urine Glucose (UA) Negative (NEGATIVE) 06/16/21 01:50 Urine Ketones Negative (NEGATIVE) 06/16/21 01:50 Urine Occult Blood 4+ (NEGATIVE) 06/16/21 01:50 Urine Nitrite Negative (NEGATIVE) 06/16/21 01:50 Urine Bilirubin Negative (NEGATIVE) 06/16/21 01:50 Urine Urobilinogen Normal (NORMAL) 06/16/21 01:50 Ur Leukocyte Esterase 3+ (NEGATIVE) 06/16/21 01:50 Urine RBC 3-5 /HPF (0-3) A 06/16/21 01:50 Urine WBC 10-20 /HPF (0-5) A 06/16/21 01:50 Ur Squamous Epith Cells Rare /HPF (NEGATIVE) 06/16/21 01:50 Urine Bacteria 1+ /HPF (NEGATIVE) 06/16/21 01:50 Ur Culture Indicated? Yes/culture set up 06/16/21 01:50 SARS-CoV-2 (PCR) Negative (NEGATIVE) 06/16/21 01:45 Influenza Type A (PCR) Negative (NEGATIVE) 06/16/21 01:45 Influenza Type B (PCR) Negative (NEGATIVE) 06/16/21 01:45 RSV (PCR) Positive (NEGATIVE) A 06/16/21 01:45 - Plan (1) CHF (congestive heart failure) Status: Chronic Qualifiers: Heart failure type: unspecified Heart failure chronicity: acute on chronic Qualified Code(s): I50.9 - Heart failure, unspecified Plan: LEVAQUIN 500MG IV DAILY, INVANZ 1G IV DAILY, PULMICORT NEB TX BID, ALBUTEROL NEB TX TID, SOLU-MEDROL 20MG IV Q8H, ROBITUSSIN CF 5ML QID, MUCOMYST IN NEB [place], AND HER HOME MEDICATIONS WERE RESUMED. (2) RSV (respiratory syncytial virus infection) Status: Acute (3) Urinary tract infection Status: Acute Qualifiers: Urinary tract infection type: site unspecified Hematuria presence: without hematuria Qualified Code(s): N39.0 - Urinary tract infection, site not specified (4) Shortness of breath Status: Acute
[2021-06-19] MEDS: ROBITUSSIN CF SYRUP PO SCH ×3 (13:18→22:35)
[2021-06-19] MEDS ORDERED: CATAPRES-TTS-3 TD SCH (20:00)
[2021-06-19] MEDS ORDERED: SNACK - Diabetic Appropriate PO SCH (20:00)
[2021-06-19] MEDS: ROCEPHIN VIAL 1 GRAM 1 G in NS 100 ML IV + SPIKE MINIBAG* 100 ML IV SCH ×2 (20:24→20:25)
[2021-06-19] MEDS ORDERED: ULTRAM PO SCH (21:00)
[2021-06-19] MEDS ORDERED: MIRALAX POWDER (1 DOSE 17 G) PO SCH (21:00)
[2021-06-19] MEDS ORDERED: LIPITOR TAB 20 MG PO SCH (21:00)
[2021-06-19] MEDS: XALATAN EACHEYE SCH (22:28)
[2021-06-19] MEDS: ELIQUIS PO SCH (22:32)
[2021-06-19] MEDS: COLACE CAP 100 MG PO SCH (22:32)
[2021-06-19] MEDS: MEGACE PO SCH (22:33)
[2021-06-19] MEDS: PROTONIX TAB 40 MG PO SCH (22:34)
[2021-06-19] MEDS: NEURONTIN CAP 300 MG PO SCH (22:34)
[2021-06-19] MEDS: TOPROL XL PO SCH (22:35)
[2021-06-19] MEDS: ZESTRIL TAB 40 MG PO SCH (22:36)
[2021-06-20] MEDS: SNACK - Diabetic Appropriate PO SCH (00:35)
[2021-06-20] MEDS: THERMOTABS PO SCH ×2 (00:38→11:00)
[2021-06-20] MEDS ORDERED: HumuLIN R ONE (05:09)
[2021-06-20] MEDS: APRESOLINE TAB 25 MG PO SCH (05:37)
[2021-06-20] MEDS: SOLU-Medrol 40 MG VIAL IVP SCH (05:37)
[2021-06-20] MEDS: HumuLIN R SUBCUT PRN (05:37)
[2021-06-20 05:56] VITALS: BP 140/71
--- NOTE | 2021-06-20 06:34 | RAD ---
HISTORYSOBSTUDYCHEST, 1 [id number]/16/2021.TECHNIQUEAP view of the chestFINDINGSCardiac silhouette appears mildly enlarged. Mediastinal contours appear normal. The left lung base and costophrenic sulcus are outside of the field of view. No consolidation or segmental lung collapse. No discernible pleural effusion or pneumothorax.IMPRESSIONNo visible acute pulmonary process. Enlarged cardiac silhouette.Electronically signed by: Emeka Barron (Jun 20, 2021 06:32:58)
[2021-06-20 07:15] LABS: BASOPHILS % (AUTO) 0.1 % (0.2-1.0); HEMATOCRIT 40.2 % (36.0-47.0); HEMOGLOBIN 13.5 g/dL (12.0-16.0); LYMPHOCYTES # (AUTO) 0.3 X10^3/uL (1.3-2.9); LYMPHOCYTES % (AUTO) 4.5 % (21.0-51.0); MEAN CORPUSCULAR HGB CONC 33.7 g/dL (33.0-35.0); MEAN PLATELET VOLUME 7.1 fL (7.4-11.0); MONOCYTES # (AUTO) 0.3 x10^3/uL (0.3-0.8); MONOCYTES % (AUTO) 5.4 % (0.0-13.0); NEUTROPHILS # (AUTO) 5.6 x10^3/uL (2.2-4.8); PLATELET COUNT 180 X10^3/uL (150.0-450.0); RED BLOOD COUNT 4.51 X10^6/uL (3.5-5.4); RED CELL DISTRIBUTION WIDTH 15.9 % (11.6-16.5); WHITE BLOOD COUNT 6.2 X10^3/uL (3.6-10.0)
[2021-06-20 07:22] LABS: ALANINE AMINOTRANSFERASE 47 Units/L (12-78); ALBUMIN 2.8 g/dL (3.4-5.0); ALKALINE PHOSPHATASE 85 Units/L (46-116); ASPARTATE AMINO TRANSFERASE 32 Units/L (15-37); BLOOD UREA NITROGEN 35 mg/dL (7-18); CALCIUM 8.5 mg/dL (8.5-10.1); CARBON DIOXIDE 25.9 mmol/L (21-32); CHLORIDE 102 mmol/L (98-107); COR CA(FOR HYPOALB) 9.5 mg/dL (8.5-10.1); COR NA(FOR HYPERGLY) 137 mmol/L (136-145); SODIUM 135 mmol/L (136-145); eGFR NON BLACK RACES 50 (>60)
[2021-06-20] MEDS ORDERED: LASIX IVP ONE (08:36)
[2021-06-20] MEDS: PULMICORT NEB TX 0.5 MG NEB SCH (08:57)
[2021-06-20] MEDS ORDERED: SYNTHROID 75 mcg TAB PO SCH (09:00)
[2021-06-20] MEDS ORDERED: LEVEMIR SC SCH (09:00)
[2021-06-20] MEDS ORDERED: K-DUR TAB 20 MEQ PO SCH (09:00)
[2021-06-20] MEDS: TOPROL XL PO SCH (11:00)
[2021-06-20] MEDS: XALATAN EACHEYE SCH (11:00)
[2021-06-20] MEDS: ROBITUSSIN CF SYRUP PO SCH ×2 (11:00→13:33)
[2021-06-20] MEDS: PROTONIX TAB 40 MG PO SCH (11:30)
[2021-06-20] MEDS: COLACE CAP 100 MG PO SCH (11:31)
[2021-06-20] MEDS: ZESTRIL TAB 40 MG PO SCH (11:31)
[2021-06-20] MEDS: ELIQUIS PO SCH (11:31)
[2021-06-20] MEDS ORDERED: LASIX ONE (11:32)
[2021-06-20] MEDS: NEURONTIN CAP 300 MG PO SCH (11:36)
[2021-06-20] MEDS: INVANZ INJ 1 GM VIAL 1 GM in NS 100 ML IV + SPIKE MINIBAG* 100 ML IV SCH (11:36)
[2021-06-20] MEDS: MEGACE PO SCH (11:37)
[2021-06-20] MEDS ORDERED: DULCOLAX SUPPOSITORY 10 MG RECTAL ONE (13:03)
== END 2021-06-20 14:10 | DRG 292 ==
LOC: OBS 22:04 → ER 22:04 → OBS 06-16 03:30 → INTOOBSV 06-16 03:36 → OBSVTOIN 06-16 03:36
PROVIDERS: ADMIT Internal Medicine; ATTEND Internal Medicine
DX: I48.91 Unspecified atrial fibrillation; R26.81 Unsteadiness on feet; N39.0 Urinary tract infection, site not specified; D68.9 Coagulation defect, unspecified; Z98.62 Peripheral vascular angioplasty status; I50.9 Heart failure, unspecified; Z20.822 Contact with and (suspected) exposure to COVID-19; I25.10 Atherosclerotic heart disease of native coronary artery without angina pectoris; B97.4 Respiratory syncytial virus as the cause of diseases classified elsewhere; B96.29 Other Escherichia coli [E. coli] as the cause of diseases classified elsewhere; Z87.440 Personal history of urinary (tract) infections; I10 Essential (primary) hypertension; R06.02 Shortness of breath

== ENCOUNTER 2021-08-26 11:08 | Inpatient (IN) ==
[2021-08-26 11:30] VITALS: BMI 27.4
--- NOTE | 2021-08-26 11:39 | DR.SOBA ---
HPI Time Seen Time Seen by Provider: 08/26/21 11:38 Primary Care Physician Primary Care Physician: Dr Nixon Complaints Chief Complaint:: Patient c/o intermittent shortness of breath that started yesterday but got worse today. Denies pain. 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 COVID-19 Coronavirus risk:travel/contact w/high risk person: No Has patient experienced Coronavirus symptoms: Yes Coronavirus symptoms experienced: Shortness of Breath Source History Provided: Patient Mode of Arrival Mode of Arrival: Stretcher Timing Onset of Chief Complaint: 08/26/21 PMH PMH Past Medical History: Yes Past Medical History: Anemia, Asthma, CHF, CVA, Depression, Diabetes, Dyslipidemia, GERD, Hypertension and Hypothyroidism Past Medical History Comment: atrial fib, chronic kidney disease, dysphagia, glaucoma, sleep apnea, osteoporosis Past Surgical History: Yes Surgical History: Angioplasty/Stents and MANAGER QUALITY COMPLIANCE Surgery Family History History of Family Medical Conditions: Yes Family Medical History: Diabetes Mellitus and Hypertension Social History Alcohol Use: None Do you use any recreational Drugs:: No Lives Where: Skilled Nursing Travel Risk Coronavirus risk:travel/contact w/high risk person: No Has patient experienced Coronavirus symptoms: Yes Coronavirus symptoms experienced: Shortness of Breath Infectious screening In the last 2 months have you had wt loss of >10#?: NO Have you had fever, night sweats or hemotysis?: No Have you traveled outside the country in the last 6 months?: No Isolation: Standard ROS Review of Systems Constitutional: See HPI, Weakness and Fatigue; negative Fever Eyes: No Symptoms Reported and See HPI; negative Blurred Vision and Diplopia ENTM: No Symptoms Reported and See HPI; negative Nose Discharge and Nose Tony estion Respiratoy: See HPI and Short of Breath; negative Moist Cough and Wheezing Cardiovascular: No Symptoms Reported and See HPI; negative Chest Pain Gastrointestinal/Abdominal: No Symptoms Reported and See HPI; negative Abdominal Pain, Diarrhea, Nausea and Vomiting Genitourinary: No Symptoms Reported and See HPI; negative Dysuria Neurological: No Symptoms Reported and See HPI; negative Headache, Weakness and Dizziness Musculoskeletal: No Symptoms Reported and See HPI; negative Muscle Pain Integumentary: No Symptoms Reported and See HPI; negative Rash and Juandice Hematologic/Lymphatic: See HPI, Easy Bleeding and Easy Bruising Endocrine: No Symptoms Reported and See HPI; negative Increased Thirst and Increased Urine Psychiatric: No Symptoms Reported and See HPI All Other Systems: Reviewed and Negative PE Vital Signs Vitals: Temperature 98.0 F Pulse Rate 102 Respiratory Rate 35 Blood Pressure [Left Arm] 140/71 Blood Pressure 173/109 O2 Sat by Pulse Oximetry 99 General Limitations: No Limitations General Appearance: Alert and In Distress Head Head Exam: Normal Inspection Eyes Eye exam: Normal Appearance; negative Scleral Icterus and Conjunctival Injection ENT ENT Exam: Normal Exam, Normal Oropharynx, Normal External Ear Exam and TM's Normal Bilaterally Neck Neck Exam: Normal Inspection and Trachea Midline; negative Tenderness Chest Chest Inspection: Normal Inspection and Symmetric Chest Wall Rise; negative Tenderness Respiratory Respiratory Exam: Normal Lung Sounds Bilat; negative Accessory Muscle Use, Chest Wall Tenderness and Respiratory Distress Respiratory Exam: Bilateral: Clear to Auscultation Cardiovascular Cardiovascular Exam: Tachycardia and Irregular Rhythm; negative Systolic Murmur and Diastolic Murmur Abdominal Exam Abdominal Exam: Normal Inspection, Normal Bowel Sounds and Soft; negative Tenderness Extremities Extremities Exam: Normal Capillary Refill and Edema Back Back Exam: Normal Inspection; negative (R) CVA Tenderness and (L) CVA Tenderness Neurologic Neurological Exam: Alert and Oriented X3; negative Motor Sensory Deficit Psychiatric Psychiatric Exam: Normal Affect and Normal Mood Skin Skin Exam: Warm, Dry, Intact and Normal Color MDM Additional Information Obtained Additional Information Obtained From: Old Records and PCP Differential Diagnosis Differential Diagnosis: Bronchitis, COPD, Dysrhythmia, Hyponatremia, Mycardial Infarction, Pneumonia and Respiratory Insufficiency Differential Diagnosis Comment:: A FIB WITH RVR, HTN, SOB. COURSE Treatment Treatment: SEE ORDERS. Consultation Consultation Comments: DISCUSSED PATIENT WITH DR. NIXON. HE WILL ADMIT PATIENT. Education/Counseling Education/Counseling: Patient and Family Educated On: Diagnosis ROR Labs Reviewed Laboratory Results Reviewed?: Yes Result Diagrams: 08/26/21 11:20 08/26/21 11:20 Laboratory: WBC 6.3 X10^3/uL (3.6-10.0) 08/26/21 11:20 RBC 4.18 X10^6/uL (3.5-5.4) 08/26/21 11:20 Hgb 12.5 g/dL (12.0-16.0) 08/26/21 11:20 Hct 38.6 % (36.0-47.0) 08/26/21 11:20 MCV 92.3 fL (80.0-100.0) 08/26/21 11:20 MCH 30.0 pg (27.0-34.0) 08/26/21 11:20 MCHC 32.5 g/dL (33.0-35.0) L 08/26/21 11:20 RDW 18.4 % (11.6-16.5) H 08/26/21 11:20 Plt Count 233 X10^3/uL (150.0-450.0) 08/26/21 11:20 MPV 7.5 fL (7.4-11.0) 08/26/21 11:20 Neut % (Auto) 70.7 % (42.0-75.0) 08/26/21 11:20 Lymph % (Auto) 10.9 % (21.0-51.0) L 08/26/21 11:20 [place] % (Auto) 10.8 % (0.0-13.0) 08/26/21 11:20 Eos % (Auto) 6.4 % (0.9-2.9) H 08/26/21 11:20 Baso % (Auto) 1.2 % (0.2-1.0) H 08/26/21 11:20 Neut # (Auto) 4.4 x10^3/uL (2.2-4.8) 08/26/21 11:20 Lymph # (Auto) 0.7 X10^3/uL (1.3-2.9) L 08/26/21 11:20 [place] # (Auto) 0.7 x10^3/uL (0.3-0.8) 08/26/21 11:20 Eos # (Auto) 0.4 x10^3/uL (0.0-0.2) H 08/26/21 11:20 Baso # (Auto) 0.1 X10^3/uL (0.0-0.1) 08/26/21 11:20 Absolute Nucleated RBC 0.2 /100WBC 08/26/21 11:20 Sodium 139 mmol/L (136-145) 08/26/21 11:20 Corrected Sodium 142 mmol/L (136-145) 08/26/21 11:20 Potassium 4.8 mmol/L (3.5-5.1) 08/26/21 11:20 Chloride 107 mmol/L (98-107) 08/26/21 11:20 Carbon Dioxide 21.5 mmol/L (21-32) 08/26/21 11:20 BUN 17 mg/dL (7-18) 08/26/21 11:20 Creatinine 1.02 mg/dL (0.55-1.02) 08/26/21 11:20 Est GFR (MDRD) Af Amer > 60 (>60) 08/26/21 11:20 Est GFR (MDRD) Non-Af 55 (>60) L 08/26/21 11:20 Glucose 210 mg/dL (65-99) H 08/26/21 11:20 Calcium 8.4 mg/dL (8.5-10.1) L 08/26/21 11:20 Corrected Calcium 9.2 mg/dL (8.5-10.1) 08/26/21 11:20 Total Bilirubin 1.00 mg/dL (0.2-1.0) 08/26/21 11:20 AST 27 Units/L (15-37) 08/26/21 11:20 ALT 20 Units/L (12-78) 08/26/21 11:20 Alkaline Phosphatase 118 Units/L (46-116) H 08/26/21 11:20 Creatine Kinase 51 Units/L (26-192) 08/26/21 11:20 CK-MB (CK-2) 1.4 ng/mL (0-4.0) 08/26/21 11:20 CK/CKMB % Calc 2.8 % (<4) 08/26/21 11:20 Troponin I 0.13 ng/mL (0-1.5) 08/26/21 11:20 B-Natriuretic Peptide 1860 pg/mL (0-79) H* 08/26/21 11:20 Total Protein 6.4 g/dL (6.4-8.2) 08/26/21 11:20 Albumin 3.0 g/dL (3.4-5.0) L 08/26/21 11:20 Globulin 3.4 g/dL (2.5-4.5) 08/26/21 11:20 Albumin/Globulin Ratio 0.9 Ratio (1.1-2.1) L 08/26/21 11:20 SARS-CoV-2 (PCR) Negative (NEGATIVE) 08/26/21 15:35 Influenza Type A (PCR) Negative (NEGATIVE) 08/26/21 15:35 Influenza Type B (PCR) Negative (NEGATIVE) 08/26/21 15:35 RSV (PCR) Negative (NEGATIVE) 08/26/21 15:35 XRAY XRAY Interpreted by: Radiologist (REPORT NOTED AND DISCUSSED WITH PATIENT.) and Self EKG Rate: 118 [place]: Normal Rhythm: Afib (WITH RPR.) Block: None Hypertrophy: LVH ST: Lat and Nonsp Opioid Opioid Risk Tool Age (Marcos box if 16-45): No History of Preadolescent Sexual Abuse: No Total: 0 Total Score Risk Category: Low Risk Copyright: [place] LR predicting aberrant behaviors Diagnosis Discharge Problem: Atrial fibrillation with RVR, SOB (shortness of breath) Instructions Forms: Precautions for COVID19 [facility] Social Distancing
[2021-08-26 12:00] LABS: BASOPHILS # (AUTO) 0.1 X10^3/uL (0.0-0.1); BASOPHILS % (AUTO) 1.2 % (0.2-1.0); EOSINOPHILS # (AUTO) 0.4 x10^3/uL (0.0-0.2); EOSINOPHILS % (AUTO) 6.4 % (0.9-2.9); HEMATOCRIT 38.6 % (36.0-47.0); HEMOGLOBIN 12.5 g/dL (12.0-16.0); LYMPHOCYTES # (AUTO) 0.7 X10^3/uL (1.3-2.9); LYMPHOCYTES % (AUTO) 10.9 % (21.0-51.0); MEAN CORPUSCULAR HGB CONC 32.5 g/dL (33.0-35.0); MEAN CORPUSCULAR VOLUME 92.3 fL (80.0-100.0); MEAN PLATELET VOLUME 7.5 fL (7.4-11.0); MONOCYTES # (AUTO) 0.7 x10^3/uL (0.3-0.8); MONOCYTES % (AUTO) 10.8 % (0.0-13.0); NEUTROPHILS # (AUTO) 4.4 x10^3/uL (2.2-4.8); NEUTROPHILS % (AUTO) 70.7 % (42.0-75.0); PLATELET COUNT 233 X10^3/uL (150.0-450.0); RED BLOOD COUNT 4.18 X10^6/uL (3.5-5.4); RED CELL DISTRIBUTION WIDTH 18.4 % (11.6-16.5); WHITE BLOOD COUNT 6.3 X10^3/uL (3.6-10.0)
[2021-08-26] MEDS ORDERED: CARDIZEM INJ 50 MG VIAL IVP ONE (12:01)
[2021-08-26] MEDS ORDERED: CARDIZEM INJ 50 MG VIAL ONE (12:07)
[2021-08-26 12:17] LABS: ALANINE AMINOTRANSFERASE 20 Units/L (12-78); ALKALINE PHOSPHATASE 118 Units/L (46-116); ASPARTATE AMINO TRANSFERASE 27 Units/L (15-37); BLOOD UREA NITROGEN 17 mg/dL (7-18); CALCIUM 8.4 mg/dL (8.5-10.1); CARBON DIOXIDE 21.5 mmol/L (21-32); CHLORIDE 107 mmol/L (98-107); CKMB % 2.8 % (<4); COR CA(FOR HYPOALB) 9.2 mg/dL (8.5-10.1); COR NA(FOR HYPERGLY) 142 mmol/L (136-145); CREATINE KINASE 51 Units/L (26-192); CREATINE KINASE MB 1.4 ng/mL (0-4.0); CREATININE 1.02 mg/dL (0.55-1.02); SODIUM 139 mmol/L (136-145); TOTAL PROTEIN 6.4 g/dL (6.4-8.2); TROPONIN I 0.13 ng/mL (0-1.5); eGFR NON BLACK RACES 55 (>60)
--- NOTE | 2021-08-26 12:58 | RAD ---
HISTORYSOB, AFIB.br DIABETES, HTN, CVA, SINUSSTUDYCHEST, 1 [id number]/27/2021FINDINGSThe trachea is midline. There is sycylyqd-nu-yviddv cardiomegaly. There is chronic elevation of the right diaphragm. No evidence of focal pneumonia, pneumothorax or pleural effusions. No pulmonary edema.IMPRESSIONNo acute cardiopulmonary findings. Stable cardiomegaly.Electronically signed by: Kitty Carter (Aug 26, 2021 12:56:19)
[2021-08-26] MEDS ORDERED: LOPRESSOR TAB 25 MG PO ONE (16:18)
[2021-08-26] MEDS ORDERED: LOPRESSOR TAB 25 MG ONE (16:36)
[2021-08-26] MEDS ORDERED: ULTRAM PO PRN (16:55)
[2021-08-26] MEDS ORDERED: NovoLIN R (or HumuLIN R) SUBCUT SCH ×2 (17:00→18:00)
[2021-08-26] MEDS ORDERED: CATAPRES-TTS-3 TD SCH ×2 (17:00→18:00)
[2021-08-26] MEDS ORDERED: ARTIFICIAL TEARS DROPS AFFEYE PRN (17:13)
[2021-08-26 17:38] LABS: BILIRUBIN,URINE NEGATIVE (NEGATIVE); BLOOD/HEMOGLOBIN,URINE 4+ (NEGATIVE); GLUCOSE, URINE NEGATIVE (NEGATIVE); KETONES,URINE 1+ (NEGATIVE); LEUKOCYTE ESTERASE ,URINE 3+ (NEGATIVE); NITRITES,URINE NEGATIVE (NEGATIVE); PROTEIN,URINE 3+ (NEGATIVE); UROBILINOGEN,URINE 1+ (NORMAL)
[2021-08-26 17:50] LABS: APPEARANCE,URINE CLOUDY (CLEAR); BACTERIA,URINE TRACE /HPF (NEGATIVE); COLOR,URINE YELLOW (YELLOW); RBC,URINE 30-50 /HPF (0-3); SQUAMOUS EPITHELIAL CELL,UR RARE /HPF (NEGATIVE)
[2021-08-26] MEDS ORDERED: PHARMACY CONSULT LTC MEDICATIONS XX SCH (18:00)
[2021-08-26] MEDS ORDERED: INVANZ INJ 1 GM VIAL 1 GM in NS 100 ML IV + SPIKE MINIBAG* 100 ML IV SCH ×2 (19:00→20:00)
[2021-08-26] MEDS ORDERED: ACCUNEB 1.25 MG NEBULE ONE (19:30)
[2021-08-26] MEDS ORDERED: PULMICORT NEB TX 0.5 MG NEB ONE (19:30)
[2021-08-26] MEDS ORDERED: NS 100 ML IV 100 ML ONE (19:58)
[2021-08-26] MEDS: ACCUNEB 1.25 MG NEBULE IN SCH (20:05)
[2021-08-26] MEDS: PULMICORT NEB TX 0.5 MG NEB SCH (20:05)
[2021-08-26] MEDS: ZESTRIL TAB 40 MG PO SCH (20:33)
[2021-08-26] MEDS: COLACE CAP 100 MG PO SCH (20:34)
[2021-08-26] MEDS: XALATAN OP SCH (20:34)
[2021-08-26] MEDS: VITAMIN C PO SCH (20:34)
[2021-08-26] MEDS: PROTONIX TAB 40 MG PO SCH (20:34)
[2021-08-26] MEDS: LIPITOR TAB 20 MG PO SCH (20:35)
[2021-08-26] MEDS: MEGACE PO SCH (20:35)
[2021-08-26] MEDS: MYLICON TAB 80 MG CHEW PO SCH (20:35)
[2021-08-26] MEDS: ELIQUIS PO SCH (20:35)
[2021-08-26] MEDS: NEURONTIN CAP 300 MG PO SCH (20:35)
[2021-08-26] MEDS ORDERED: SYMBICORT INH 80/4.5 mcg IN SCH (21:00)
[2021-08-26] MEDS ORDERED: TOPROL XL PO SCH (21:00)
[2021-08-26] MEDS: SNACK - Diabetic Appropriate PO SCH (22:13)
[2021-08-26] MEDS: PATIENT'S HOME MEDICATION (Nut.Tx.Gluc.Intol,Lac-Free,Soy [Glucerna] Liquid) PO SCH (22:14)
[2021-08-26 23:33] LABS: CKMB % 2.6 % (<4); TROPONIN I 0.11 ng/mL (0-1.5)
[2021-08-27] MEDS: ACCUNEB 1.25 MG NEBULE IN SCH ×3 (05:30→21:50)
[2021-08-27 05:43] LABS: BASOPHILS % (AUTO) 0.3 % (0.2-1.0); EOSINOPHILS # (AUTO) 0.5 x10^3/uL (0.0-0.2); EOSINOPHILS % (AUTO) 8.8 % (0.9-2.9); HEMATOCRIT 36.7 % (36.0-47.0); HEMOGLOBIN 12.1 g/dL (12.0-16.0); LYMPHOCYTES # (AUTO) 0.8 X10^3/uL (1.3-2.9); LYMPHOCYTES % (AUTO) 13.3 % (21.0-51.0); MEAN CORPUSCULAR HEMOGLOBIN 30.3 pg (27.0-34.0); MEAN CORPUSCULAR VOLUME 91.8 fL (80.0-100.0); MEAN PLATELET VOLUME 7.5 fL (7.4-11.0); MONOCYTES # (AUTO) 0.8 x10^3/uL (0.3-0.8); MONOCYTES % (AUTO) 12.7 % (0.0-13.0); NEUTROPHILS % (AUTO) 64.9 % (42.0-75.0); PLATELET COUNT 203 X10^3/uL (150.0-450.0); RED CELL DISTRIBUTION WIDTH 18.5 % (11.6-16.5); WHITE BLOOD COUNT 6.2 X10^3/uL (3.6-10.0)
[2021-08-27 06:01] LABS: ALANINE AMINOTRANSFERASE 19 Units/L (12-78); ALBUMIN 2.9 g/dL (3.4-5.0); ALKALINE PHOSPHATASE 110 Units/L (46-116); ASPARTATE AMINO TRANSFERASE 17 Units/L (15-37); BLOOD UREA NITROGEN 16 mg/dL (7-18); CALCIUM 8.5 mg/dL (8.5-10.1); CHLORIDE 109 mmol/L (98-107); CKMB % 2.4 % (<4); COR CA(FOR HYPOALB) 9.4 mg/dL (8.5-10.1); CREATINE KINASE 42 Units/L (26-192); CREATININE 1.06 mg/dL (0.55-1.02); MAGNESIUM 2.1 mg/dL (1.7-2.9); SODIUM 143 mmol/L (136-145); TOTAL PROTEIN 6.2 g/dL (6.4-8.2); TROPONIN I 0.08 ng/mL (0-1.5); eGFR NON BLACK RACES 52 (>60)
[2021-08-27] MEDS: PATIENT'S HOME MEDICATION (Nut.Tx.Gluc.Intol,Lac-Free,Soy [Glucerna] Liquid) PO SCH (06:10)
[2021-08-27] MEDS: PULMICORT NEB TX 0.5 MG NEB SCH ×2 (08:35→21:50)
[2021-08-27] MEDS ORDERED: LEVEMIR SC SCH (09:00)
[2021-08-27] MEDS ORDERED: LANOXIN INJ IVP ONE (09:37)
[2021-08-27] MEDS: ELIQUIS PO SCH ×2 (09:39→20:14)
[2021-08-27] MEDS: FERROUS GLUCONATE PO SCH (09:39)
[2021-08-27] MEDS: COLACE CAP 100 MG PO SCH ×2 (09:39→20:14)
[2021-08-27] MEDS: LOPRESSOR TAB 50 MG PO SCH ×2 (09:40→20:16)
[2021-08-27] MEDS: K-DUR TAB 20 MEQ PO SCH (09:40)
[2021-08-27] MEDS: MEGACE PO SCH ×2 (09:40→20:16)
[2021-08-27] MEDS: NITRODUR PATCH 0.4 MG/HR TD SCH (09:41)
[2021-08-27] MEDS: MIRALAX POWDER (1 DOSE 17 G) PO SCH (09:41)
[2021-08-27] MEDS: MYLICON TAB 80 MG CHEW PO SCH ×2 (09:41→20:16)
[2021-08-27] MEDS: NEURONTIN CAP 300 MG PO SCH ×2 (09:41→20:16)
[2021-08-27] MEDS: SYNTHROID 75 mcg TAB PO SCH (09:42)
[2021-08-27] MEDS: VITAMIN C PO SCH ×2 (09:42→20:17)
[2021-08-27] MEDS: TAB-A-VITE PO SCH (09:42)
[2021-08-27] MEDS: THERMOTABS PO SCH (09:42)
[2021-08-27] MEDS: PROTONIX TAB 40 MG PO SCH ×2 (09:42→20:17)
[2021-08-27] MEDS: XALATAN OP SCH ×2 (09:43→20:43)
[2021-08-27] MEDS: ZESTRIL TAB 40 MG PO SCH ×2 (09:43→20:17)
--- NOTE | 2021-08-27 09:44 | DR.H&P ---
H&P - History & Physical for Day of: H&P Date: 08/26/21 - Chief Complaint Chief Complaint: SHORTNESS OF BREATH - History of Present Illness History of Present Illness: IS A 85 YEAR OLD PATIENT OF OURS. SHE IS A RESIDENT OF [facility]. [facility] PRES[facility] WITH COMPLAINTS OF SHORTNESS OF BREATH. SYMPTOMS REPORTEDLY STARTED EARLIER ONE DAY PRIOR AND HAS PROGRESSIVELY GOTTEN WORSE. ON ARRIVAL TO THE ER, SHE WAS PLACED ON THE HUM[employer]. MONITOR SHOWED A-FIB WITH HR 124. SHE WAS PLACED ON OXYGEN VIA NASAL CANNULA AT 2 LITERS/MINUTE. HER PMH INCLUDES: GLAUCOMA, CVA, CAD, CHF, A-FIB, HTN, ASTHMA, BRONCHITIS, PULMONARY EMBOLISM, GERD, PUD, DM I, HYPOTHYROIDISM, OSTEOARTHRITIS, ANEMIA, CARDIAC STENTS. ON ARRIVAL, VITALS WERE 98.0-124-36-97%-160/93. LABS WERE OBTAINED. ABNORMAL LAB VALUES INCLUDE THE FOLLOWING: GLUCOSE GFR 55, 210, CALCIUM 8.4, ALK PHOS 118, BNP 1860, ALBUMIN 3.0. CARDIAC ENZYMES WERE WITHIN NORMAL LIMITS. A URINALYSIS WAS OBTAINED AND REVEALED: WBC TNTC, RBC 30-50, LEUKOCYTES 3+, BACTERIA TRACE, NITRITES NEGATIVE, OCCULT BLOOD 4+. URINE CULTURE WAS SET UP. COVID, RSV, AND INFLUENZA NEGATIVE. A CHEST XRAY WAS OBTAINED AND REVEALED: No acute cardiopulmonary findings. Stable cardiomegaly. IN THE ER, SHE WAS GIVEN A DOSE OF IV CARDIZEM. HEART RATE DECREASED TO 97. SHE WAS ALSO GIVEN LOPRESSOR 25MG PO X 1. SHE WAS ADMITTED FOR TREATMENT OF A-FIB WITH RVR, SOB, UTI, AND HTN. SHE WAS STARTED ON INVANZ 1G IV HS, PULMICORT NEBS BID, ALBUTEROL NEBS TID, LEVEMIR 35 UNITS SC DAILY, HUMULIN R SLIDING SCALE, AND HER HOME MEDICATIONS WERE RESUMED. WE PLANNED TO REPEAT CA RDIAC ENZYMES. ON MORNING ROUNDS, PATIENTS HEART RATE CONTINUED TO BE ELEVATED AT 100-110 BMP. TODAY, WE WILL ADMINISTER DIGOXIN 500MCG IV X 1 DOSE, THEN 125MCG PO DAILY. WE WILL ALSO ADMINISTER LASIX 20MG IV Q12H. OTHERWISE, WE PLAN TO FOLLOW UP WITH AM LABS AND CONTINUE TO MONITOR. TIME SPENT ON CLINICAL ASSESSMENT, REVIEWING LABS AND IMAGING, DECISION MAKING, AND DOCUMENTATION GREATER THAN 75 MINUTES. - Past Medical History Past Medical History: Hypertension, Dyslipidemia, Diabetes, Depression, Hypothyroidism, Anemia, CVA, Asthma, GERD, CHF Additional Medical History: DVT, Sleep Apnea, Depression, Chronic Sinusitis, Allergic Rhinitis, Constipation, Edema, UTI's, Pneumonia, Arthritis, Cataracts, Osteoporosis, Glaucoma, Ear Infections, Gastrointestinal Ulcer, Cardiac Arrhythmia, Muscle Weakness, Osteoporsis, Restless leg syndrome - Past Surgical History Surgical History: Angioplasty/Stents, BOX PERSON Surgery Additional Surgical History: Sinus surgery - Family History Family Medical History: Diabetes Mellitus, Coronary Artery Disease, Sudden Cardiac , Hypertension - Social History Does patient currently use any type of tobacco product: No Have you used tobacco products in the last 12 months: No Type of Tobacco Use: None Does any household member use tobacco: No Alcohol Use: None Drug Use: None - Medications Home Medications: tuberculin,PPD,multi-puncture Allergy (Verified 03/10/20 13:33) CONTINUE taking the following medications apixaban [Eliquis] 2.5 mg PO BID 08/26/21 [History] - Review of Systems Constitutional: Weakness Eyes: No Symptoms Reported ENT: No Symptoms Reported Respiratory: See HPI, Shortness of Breath, SOB with Excertion. denies: Cough, Sputum, Wheezing Cardiovascular: No Symptoms Reported Gastrointestinal: No Symptoms Reported Genitourinary: No Symptoms Reported Musculoskeletal: No Symptoms Reported Skin: No Symptoms Reported Neurological: Weakness - Physical Exam Vital Signs: Temperature 98.7 F Pulse Rate [Right Radial] 99 Pulse Rate 85 Respiratory Rate 24 Blood Pressure [Left Arm] 131/73 Blood Pressure 143/90 O2 Sat by Pulse Oximetry 98 Oriented: Normal Eyes: Normal Ear: Normal Nose: Normal Throat: Normal Respiratory: Diminished Throughout Cardiovascular: Tachycardia, Irregular : Normal Auscultation: Bowel Sounds: Normal Palpation: Normal Tenderness: Normal Skin: Normal Musculoskeletal: Normal Psychiatric: Normal Mood Description: Calm Affect: Normal Speech Pattern: Clear - Assessment/Plan (1) Atrial fibrillation with RVR Status: Acute Plan: ADMIT, DIGOXIN 500MCG IV X 1, THEN DIGOXIN 125MCG PO DAILY, LASIX 20MG IV Q12H, INVANZ 1G IV HS, PULMICORT NEBS BID, ALBUTEROL NEBS TID, LEVEMIR 35 UNITS SC DAILY, HUMULIN R SLIDING SCALE, AND HER HOME MEDICATIONS WERE RESUMED. (2) SOB (shortness of breath) Status: Acute (3) Urinary tract infection Qualifiers: Urinary tract infection type: site unspecified Hematuria presence: with hematuria Qualified Code(s): N39.0 - Urinary tract infection, site not specified; R31.9 - Hematuria, unspecified Status: Acute (4) CHF (congestive heart failure) Qualifiers: Heart failure type: unspecified Heart failure chronicity: acute on chronic Qualified Code(s): I50.9 - Heart failure, unspecified Status: Chronic (5) Hypertension Qualifiers: Hypertension type: primary hypertension Qualified Code(s): I10 - Essential (primary) hypertension Status: Chronic - Allergies Allergies/Adverse Reactions: Allergies Allergy/AdvReac Type Severity Reaction Status Date / Time tuberculin,PPD,multi-puncture Allergy Verified 03/10/20 13:33
[2021-08-27] MEDS: LASIX IVP SCH ×2 (10:27→17:43)
[2021-08-27] MEDS: INVANZ INJ 1 GM VIAL 1 GM in NS 100 ML IV + SPIKE MINIBAG* 100 ML IV SCH (20:15)
[2021-08-27] MEDS: LIPITOR TAB 20 MG PO SCH (20:15)
[2021-08-27] MEDS: SNACK - Diabetic Appropriate PO SCH (20:17)
[2021-08-28] MEDS ORDERED: D50W ABBOJECT SYR ONE (05:35)
[2021-08-28] MEDS ORDERED: D50W ABBOJECT SYR IV ONE (05:43)
[2021-08-28] MEDS: ACCUNEB 1.25 MG NEBULE IN SCH (05:47)
[2021-08-28] MEDS: ELIQUIS PO SCH ×2 (08:43→20:30)
[2021-08-28] MEDS: LOPRESSOR TAB 50 MG PO SCH ×2 (08:43→20:29)
[2021-08-28] MEDS: COLACE CAP 100 MG PO SCH ×2 (08:43→20:30)
[2021-08-28] MEDS: K-DUR TAB 20 MEQ PO SCH (08:44)
[2021-08-28] MEDS: FERROUS GLUCONATE PO SCH (08:45)
[2021-08-28] MEDS: LANOXIN or DIGITEK PO SCH (08:45)
[2021-08-28] MEDS: ZESTRIL TAB 40 MG PO SCH ×2 (08:47→20:30)
[2021-08-28] MEDS: LASIX IVP SCH ×2 (08:47→18:04)
[2021-08-28] MEDS: PROTONIX TAB 40 MG PO SCH ×2 (08:47→20:30)
[2021-08-28] MEDS: VITAMIN C PO SCH ×2 (08:47→20:30)
[2021-08-28] MEDS: MEGACE PO SCH ×2 (08:48→20:29)
[2021-08-28] MEDS: SYNTHROID 75 mcg TAB PO SCH (08:48)
[2021-08-28] MEDS: TAB-A-VITE PO SCH (08:48)
[2021-08-28] MEDS: MYLICON TAB 80 MG CHEW PO SCH ×2 (08:48→20:31)
[2021-08-28] MEDS: NEURONTIN CAP 300 MG PO SCH ×2 (08:49→20:30)
[2021-08-28] MEDS: MIRALAX POWDER (1 DOSE 17 G) PO SCH (08:50)
[2021-08-28] MEDS: THERMOTABS PO SCH (08:51)
[2021-08-28] MEDS: NITRODUR PATCH 0.4 MG/HR TD SCH (08:51)
[2021-08-28] MEDS: XALATAN OP SCH ×2 (08:51→20:52)
[2021-08-28] MEDS: PULMICORT NEB TX 0.5 MG NEB SCH ×2 (08:55→21:05)
[2021-08-28 10:27] LABS: BASOPHILS % (AUTO) 0.4 % (0.2-1.0); EOSINOPHILS # (AUTO) 0.2 x10^3/uL (0.0-0.2); EOSINOPHILS % (AUTO) 2.6 % (0.9-2.9); HEMATOCRIT 39.8 % (36.0-47.0); HEMOGLOBIN 13.2 g/dL (12.0-16.0); LYMPHOCYTES # (AUTO) 0.5 X10^3/uL (1.3-2.9); LYMPHOCYTES % (AUTO) 8.9 % (21.0-51.0); MEAN CORPUSCULAR HEMOGLOBIN 30.2 pg (27.0-34.0); MEAN CORPUSCULAR HGB CONC 33.2 g/dL (33.0-35.0); MEAN CORPUSCULAR VOLUME 90.9 fL (80.0-100.0); MEAN PLATELET VOLUME 7.1 fL (7.4-11.0); MONOCYTES # (AUTO) 0.7 x10^3/uL (0.3-0.8); MONOCYTES % (AUTO) 10.9 % (0.0-13.0); NEUTROPHILS # (AUTO) 4.7 x10^3/uL (2.2-4.8); NEUTROPHILS % (AUTO) 77.2 % (42.0-75.0); PLATELET COUNT 211 X10^3/uL (150.0-450.0); RED BLOOD COUNT 4.38 X10^6/uL (3.5-5.4); RED CELL DISTRIBUTION WIDTH 17.6 % (11.6-16.5)
[2021-08-28 10:34] LABS: BLOOD UREA NITROGEN 12 mg/dL (7-18); CALCIUM 8.7 mg/dL (8.5-10.1); CARBON DIOXIDE 27.3 mmol/L (21-32); CHLORIDE 104 mmol/L (98-107); COR NA(FOR HYPERGLY) 142 mmol/L (136-145); CREATININE 1.01 mg/dL (0.55-1.02); SODIUM 141 mmol/L (136-145); eGFR NON BLACK RACES 56 (>60)
--- NOTE | 2021-08-28 10:40 | PCM.PROG ---
Progress Note Progress Note for Day of Date of Exam: 08/28/21 Subjective Subjective: Patient seen at bedside, no acute events overnight. Her FSBG was noted to be 50 earlier. d was given Dextrose, it did come up to 170. Patient's levemir was held. She states she is feeling better. She is on 2L NC. Her HR has been in the 80-90s. Labs: ordered for today Urine Cx: Group B Strep Plan: continue current treatment, patient's HR improved with addition of Digoxin. Wean O2 as tolerated. Follow labs, Continue Invanz. Patient does have a hx of ESBL E.coli. Hold levemir, continue SSI, monitor FSBG. Monitor AM labs /imaging. Past Medical Family Social History Past Med/Fam/Surg Hx: No changes since H&P Allergies: Allergies tuberculin,PPD,multi-puncture Allergy (Verified 03/10/20 13:33) Review of Systems ROS: No change since H&P Vital Signs and I&O's Vital Signs: Temperature 98.7 F Pulse Rate [Right Radial] 92 Pulse Rate 103 Respiratory Rate 19 Blood Pressure [Left Arm] 137/77 Blood Pressure 143/90 O2 Sat by Pulse Oximetry 99 Intake and Output: Intake & Output 08/25/21 08/26/21 08/27/21 08/28/21 23:59 23:59 23:59 23:59 Intake Total 347 / 347 615 / 615 550 / 550 Balance 347 / 347 615 / 615 550 / 550 Physical Exam Oriented: Normal Eyes: Normal Ear: Normal Nose: Normal Throat: Normal Respiratory: Generalized and Diminished Cardiovascular: Tachycardia and Irregular Auscultation: Bowel Sounds: Normal Tenderness: Normal Skin: Normal Musculoskeletal: Normal Psychiatric: Normal Mood Description: Calm Affect: Normal Speech Pattern: Clear and Appropriate Laboratory and Diagnostics Result Diagrams: 08/28/21 10:14 08/28/21 10:14 Labs: 08/26/21 17:10 Urine,Random Urine Culture - Final Strep Agalactiae - (Group B) Laboratory WBC 6.2 X10^3/uL (3.6-10.0) 08/27/21 05:01 RBC 4.00 X10^6/uL (3.5-5.4) 08/27/21 05:01 Hgb 12.1 g/dL (12.0-16.0) 08/27/21 05:01 Hct 36.7 % (36.0-47.0) 08/27/21 05:01 MCV 91.8 fL (80.0-100.0) 08/27/21 05:01 MCH 30.3 pg (27.0-34.0) 08/27/21 05:01 MCHC 33.0 g/dL (33.0-35.0) 08/27/21 05:01 RDW 18.5 % (11.6-16.5) H 08/27/21 05:01 Plt Count 203 X10^3/uL (150.0-450.0) 08/27/21 05:01 MPV 7.5 fL (7.4-11.0) 08/27/21 05:01 Neut % (Auto) 64.9 % (42.0-75.0) 08/27/21 05:01 Lymph % (Auto) 13.3 % (21.0-51.0) L 08/27/21 05:01 [place] % (Auto) 12.7 % (0.0-13.0) 08/27/21 05:01 Eos % (Auto) 8.8 % (0.9-2.9) H 08/27/21 05:01 Baso % (Auto) 0.3 % (0.2-1.0) 08/27/21 05:01 Neut # (Auto) 4.0 x10^3/uL (2.2-4.8) 08/27/21 05:01 Lymph # (Auto) 0.8 X10^3/uL (1.3-2.9) L 08/27/21 05:01 [place] # (Auto) 0.8 x10^3/uL (0.3-0.8) 08/27/21 05:01 Eos # (Auto) 0.5 x10^3/uL (0.0-0.2) H 08/27/21 05:01 Baso # (Auto) 0.0 X10^3/uL (0.0-0.1) 08/27/21 05:01 Absolute Nucleated RBC 0.0 /100WBC 08/27/21 05:01 Sodium 143 mmol/L (136-145) 08/27/21 05:01 Corrected Sodium TNP 08/27/21 05:01 Potassium 4.0 mmol/L (3.5-5.1) 08/27/21 05:01 Chloride 109 mmol/L (98-107) H 08/27/21 05:01 Carbon Dioxide 21.0 mmol/L (21-32) 08/27/21 05:01 BUN 16 mg/dL (7-18) 08/27/21 05:01 Creatinine 1.06 mg/dL (0.55-1.02) H 08/27/21 05:01 Est GFR (MDRD) Af Amer > 60 (>60) 08/27/21 05:01 Est GFR (MDRD) Non-Af 52 (>60) L 08/27/21 05:01 Glucose 170 mg/dL (65-99) H 08/28/21 05:49 POC Glucose (mg/dL) 50 mg/dL (65-99) L* 08/28/21 05:29 Calcium 8.5 mg/dL (8.5-10.1) 08/27/21 05:01 Corrected Calcium 9.4 mg/dL (8.5-10.1) 08/27/21 05:01 Magnesium 2.1 mg/dL (1.7-2.9) 08/27/21 05:01 Total Bilirubin 0.90 mg/dL (0.2-1.0) 08/27/21 05:01 AST 17 Units/L (15-37) 08/27/21 05:01 ALT 19 Units/L (12-78) 08/27/21 05:01 Alkaline Phosphatase 110 Units/L (46-116) 08/27/21 05:01 Creatine Kinase 42 Units/L (26-192) 08/27/21 05:01 CK-MB (CK-2) 1.0 ng/mL (0-4.0) 08/27/21 05:01 CK/CKMB % Calc 2.4 % (<4) 08/27/21 05:01 Troponin I 0.08 ng/mL (0-1.5) 08/27/21 05:01 B-Natriuretic Peptide 1870 pg/mL (0-79) H* 08/27/21 05:01 Total Protein 6.2 g/dL (6.4-8.2) L 08/27/21 05:01 Albumin 2.9 g/dL (3.4-5.0) L 08/27/21 05:01 Globulin 3.3 g/dL (2.5-4.5) 08/27/21 05:01 Albumin/Globulin Ratio 0.9 Ratio (1.1-2.1) L 08/27/21 05:01 Specimen Type Random urine 08/26/21 17:10 Urine Color Yellow (YELLOW) 08/26/21 17:10 Urine Appearance Cloudy (CLEAR) 08/26/21 17:10 Urine pH 6.0 (5.0 - 8.0) 08/26/21 17:10 Ur Specific [place] 1.020 (1.000-1.030) 08/26/21 17:10 Urine Protein 3+ (NEGATIVE) 08/26/21 17:10 Urine Glucose (UA) Negative (NEGATIVE) 08/26/21 17:10 Urine Ketones 1+ (NEGATIVE) 08/26/21 17:10 Urine Occult Blood 4+ (NEGATIVE) 08/26/21 17:10 Urine Nitrite Negative (NEGATIVE) 08/26/21 17:10 Urine Bilirubin Negative (NEGATIVE) 08/26/21 17:10 Urine Urobilinogen 1+ (NORMAL) 08/26/21 17:10 Ur Leukocyte Esterase 3+ (NEGATIVE) 08/26/21 17:10 Urine RBC 30-50 /HPF (0-3) A 08/26/21 17:10 Urine WBC Tntc /HPF (0-5) A 08/26/21 17:10 Ur Squamous Epith Cells Rare /HPF (NEGATIVE) 08/26/21 17:10 Urine Bacteria Trace /HPF (NEGATIVE) 08/26/21 17:10 Ur Culture Indicated? Yes/culture set up 08/26/21 17:10 Digoxin 0.71 ng/mL (0.9-2) L 08/28/21 04:12 SARS-CoV-2 (PCR) Negative (NEGATIVE) 08/26/21 15:35 Influenza Type A (PCR) Negative (NEGATIVE) 08/26/21 15:35 Influenza Type B (PCR) Negative (NEGATIVE) 08/26/21 15:35 RSV (PCR) Negative (NEGATIVE) 08/26/21 15:35 Plan (1) Atrial fibrillation with RVR: Status: Acute (2) SOB (shortness of breath): Status: Acute (3) Urinary tract infection: Status: Acute Qualifiers: Hematuria presence: with hematuria Urinary tract infection type: site unspecified Qualified Code(s): N39.0 - Urinary tract infection, site not specified; R31.9 - Hematuria, unspecified (4) CHF (congestive heart failure): Status: Chronic Qualifiers: Heart failure chronicity: acute on chronic Heart failure type: unspecified Qualified Code(s): I50.9 - Heart failure, unspecified (5) Hypertension: Status: Chronic Qualifiers: Hypertension type: primary hypertension Qualified Code(s): I10 - Essential (primary) hypertension
[2021-08-28] MEDS ORDERED: K-RIDER 10 MEQ/NS 100 ML 10 MEQ/100 ML BAG IV PRN (10:53)
[2021-08-28] MEDS ORDERED: POTASSIUM CHLORIDE LIQ 20 MEQ UDC PO PRN (10:53)
[2021-08-28] MEDS ORDERED: POTASSIUM CHL 60 MEQ/NS 0.45% 500 ML IV PRN (10:53)
[2021-08-28] MEDS ORDERED: KLOR-CON PO PRN (10:53)
[2021-08-28] MEDS ORDERED: MICRO K EXTEN CAP 10 MEQ PO PRN (10:53)
[2021-08-28] MEDS ORDERED: POTASSIUM CHL 40 MEQ/NS 0.45% 500 ML IV PRN (10:53)
[2021-08-28] MEDS ORDERED: K-DUR TAB 20 MEQ PO PRN (10:53)
[2021-08-28] MEDS ORDERED: K-DUR TAB 20 MEQ PO SCH (11:00)
[2021-08-28] MEDS ORDERED: ACCUNEB 1.25 MG NEBULE ONE (12:31)
[2021-08-28] MEDS: ACCUNEB 1.25 MG NEBULE NEB SCH ×2 (12:40→21:05)
[2021-08-28] MEDS: MAGNESIUM SULFATE 1 GRAM/100 mL PREMIX 1 G/100 ML BAG IV PRN ×2 (12:55→14:00)
[2021-08-28] MEDS: LIPITOR TAB 20 MG PO SCH (20:29)
[2021-08-28] MEDS: INVANZ INJ 1 GM VIAL 1 GM in NS 100 ML IV + SPIKE MINIBAG* 100 ML IV SCH (20:31)
[2021-08-28] MEDS: NovoLIN R (or HumuLIN R) SUBCUT PRN (20:40)
[2021-08-28] MEDS: SNACK - Diabetic Appropriate PO SCH (20:53)
[2021-08-29] MEDS: ACCUNEB 1.25 MG NEBULE NEB SCH ×3 (05:56→20:01)
[2021-08-29 06:09] LABS: BASOPHILS # (AUTO) 0.1 X10^3/uL (0.0-0.1); BASOPHILS % (AUTO) 1.2 % (0.2-1.0); EOSINOPHILS # (AUTO) 0.5 x10^3/uL (0.0-0.2); EOSINOPHILS % (AUTO) 8.7 % (0.9-2.9); HEMATOCRIT 34.8 % (36.0-47.0); HEMOGLOBIN 11.6 g/dL (12.0-16.0); LYMPHOCYTES # (AUTO) 0.9 X10^3/uL (1.3-2.9); LYMPHOCYTES % (AUTO) 17.5 % (21.0-51.0); MEAN CORPUSCULAR HGB CONC 33.4 g/dL (33.0-35.0); MEAN CORPUSCULAR VOLUME 89.9 fL (80.0-100.0); MEAN PLATELET VOLUME 7.6 fL (7.4-11.0); MONOCYTES # (AUTO) 0.7 x10^3/uL (0.3-0.8); MONOCYTES % (AUTO) 14.3 % (0.0-13.0); NEUTROPHILS # (AUTO) 3.1 x10^3/uL (2.2-4.8); NEUTROPHILS % (AUTO) 58.3 % (42.0-75.0); PLATELET COUNT 197 X10^3/uL (150.0-450.0); RED BLOOD COUNT 3.88 X10^6/uL (3.5-5.4); RED CELL DISTRIBUTION WIDTH 17.8 % (11.6-16.5); WHITE BLOOD COUNT 5.2 X10^3/uL (3.6-10.0)
[2021-08-29 06:12] LABS: BLOOD UREA NITROGEN 14 mg/dL (7-18); CALCIUM 8.2 mg/dL (8.5-10.1); CARBON DIOXIDE 28.6 mmol/L (21-32); CHLORIDE 105 mmol/L (98-107); CREATININE 1.09 mg/dL (0.55-1.02); DIGOXIN 0.76 ng/mL (0.9-2); MAGNESIUM 1.9 mg/dL (1.7-2.9); SODIUM 143 mmol/L (136-145); eGFR NON BLACK RACES 51 (>60)
[2021-08-29] MEDS: COLACE CAP 100 MG PO SCH ×2 (08:55→21:32)
[2021-08-29] MEDS: PROTONIX TAB 40 MG PO SCH ×2 (08:55→21:31)
[2021-08-29] MEDS: FERROUS GLUCONATE PO SCH (08:56)
[2021-08-29] MEDS: ELIQUIS PO SCH ×2 (08:57→21:31)
[2021-08-29] MEDS: LANOXIN or DIGITEK PO SCH (08:57)
[2021-08-29] MEDS: K-DUR TAB 20 MEQ PO SCH (08:58)
[2021-08-29] MEDS: NEURONTIN CAP 300 MG PO SCH ×2 (08:58→21:31)
[2021-08-29] MEDS: LOPRESSOR TAB 50 MG PO SCH ×2 (09:00→21:31)
[2021-08-29] MEDS: MYLICON TAB 80 MG CHEW PO SCH ×2 (09:00→21:32)
[2021-08-29] MEDS: SYNTHROID 75 mcg TAB PO SCH (09:01)
[2021-08-29] MEDS: VITAMIN C PO SCH ×2 (09:03→21:31)
[2021-08-29] MEDS: TAB-A-VITE PO SCH (09:03)
[2021-08-29] MEDS: MIRALAX POWDER (1 DOSE 17 G) PO SCH (09:09)
[2021-08-29] MEDS: ZESTRIL TAB 40 MG PO SCH ×2 (09:10→21:32)
[2021-08-29] MEDS: THERMOTABS PO SCH (09:10)
[2021-08-29] MEDS: MEGACE PO SCH ×2 (09:10→21:32)
[2021-08-29] MEDS: XALATAN OP SCH ×2 (09:10→21:34)
[2021-08-29] MEDS: PULMICORT NEB TX 0.5 MG NEB SCH ×2 (09:18→20:01)
[2021-08-29] MEDS: NITRODUR PATCH 0.4 MG/HR TD SCH (10:02)
[2021-08-29] MEDS: LEVEMIR SC SCH (10:45)
--- NOTE | 2021-08-29 10:47 | PCM.PROG ---
Progress Note Progress Note for Day of Date of Exam: 08/29/21 Subjective Subjective: Patient seen at bedside, no events overnight. She has been doing well. HR has been between 80-100. Her FSBG have improved and trending up. She has been tolerating PO diet. Labs reviewed Urine Cx: Group B Strep Plan: continue current treatment, patient's HR improved with addition of Digoxin. Wean O2 as tolerated. Continue Invanz. Patient does have a hx of ESBL E.coli. Resume levemir 10 units, continue SSI, monitor FSBG. Monitor AM labs /imaging. Possible discharge to [facility] tomorrow. Past Medical Family Social History Past Med/Fam/Surg Hx: No changes since H&P Allergies: Allergies tuberculin,PPD,multi-puncture Allergy (Verified 03/10/20 13:33) Review of Systems ROS: No change since H&P Vital Signs and I&O's Vital Signs: Temperature 98.2 F Pulse Rate [Right Radial] 110 Pulse Rate 91 Respiratory Rate 32 Blood Pressure [Right Arm] 154/80 Blood Pressure [Left Arm] 160/92 Blood Pressure 143/90 O2 Sat by Pulse Oximetry 97 Intake and Output: Intake & Output 08/26/21 08/27/21 08/28/21 08/29/21 23:59 23:59 23:59 23:59 Intake Total 347 / 347 615 / 615 1510 / 1510 120 / 120 Balance 347 / 347 615 / 615 1510 / 1510 120 / 120 Physical Exam Oriented: Normal Eyes: Normal Ear: Normal Nose: Normal Throat: Normal Respiratory: Generalized and Diminished Cardiovascular: Irregular Auscultation: Bowel Sounds: Normal Tenderness: Normal Skin: Decreased [place] Musculoskeletal: Normal Psychiatric: Normal Mood Description: Calm Affect: Normal Speech Pattern: Clear and Appropriate Laboratory and Diagnostics Result Diagrams: 08/29/21 05:15 08/29/21 05:15 Labs: 08/26/21 17:10 Urine,Random Urine Culture - Final Strep Agalactiae - (Group B) Laboratory WBC 5.2 X10^3/uL (3.6-10.0) 08/29/21 05:15 RBC 3.88 X10^6/uL (3.5-5.4) 08/29/21 05:15 Hgb 11.6 g/dL (12.0-16.0) L 08/29/21 05:15 Hct 34.8 % (36.0-47.0) L 08/29/21 05:15 MCV 89.9 fL (80.0-100.0) 08/29/21 05:15 MCH 30.0 pg (27.0-34.0) 08/29/21 05:15 MCHC 33.4 g/dL (33.0-35.0) 08/29/21 05:15 RDW 17.8 % (11.6-16.5) H 08/29/21 05:15 Plt Count 197 X10^3/uL (150.0-450.0) 08/29/21 05:15 MPV 7.6 fL (7.4-11.0) 08/29/21 05:15 Neut % (Auto) 58.3 % (42.0-75.0) 08/29/21 05:15 Lymph % (Auto) 17.5 % (21.0-51.0) L 08/29/21 05:15 [place] % (Auto) 14.3 % (0.0-13.0) H 08/29/21 05:15 Eos % (Auto) 8.7 % (0.9-2.9) H 08/29/21 05:15 Baso % (Auto) 1.2 % (0.2-1.0) H 08/29/21 05:15 Neut # (Auto) 3.1 x10^3/uL (2.2-4.8) 08/29/21 05:15 Lymph # (Auto) 0.9 X10^3/uL (1.3-2.9) L 08/29/21 05:15 [place] # (Auto) 0.7 x10^3/uL (0.3-0.8) 08/29/21 05:15 Eos # (Auto) 0.5 x10^3/uL (0.0-0.2) H 08/29/21 05:15 Baso # (Auto) 0.1 X10^3/uL (0.0-0.1) 08/29/21 05:15 Absolute Nucleated RBC 0.1 /100WBC 08/29/21 05:15 Sodium 143 mmol/L (136-145) 08/29/21 05:15 Corrected Sodium TNP 08/29/21 05:15 Potassium 3.9 mmol/L (3.5-5.1) 08/29/21 05:15 Chloride 105 mmol/L (98-107) 08/29/21 05:15 Carbon Dioxide 28.6 mmol/L (21-32) 08/29/21 05:15 BUN 14 mg/dL (7-18) 08/29/21 05:15 Creatinine 1.09 mg/dL (0.55-1.02) H 08/29/21 05:15 Est GFR (MDRD) Af Amer > 60 (>60) 08/29/21 05:15 Est GFR (MDRD) Non-Af 51 (>60) L 08/29/21 05:15 Glucose 99 mg/dL (65-99) 08/29/21 05:15 POC Glucose (mg/dL) 98 mg/dL (65-99) 08/29/21 06:29 Calcium 8.2 mg/dL (8.5-10.1) L 08/29/21 05:15 Corrected Calcium 9.4 mg/dL (8.5-10.1) 08/27/21 05:01 Magnesium 1.9 mg/dL (1.7-2.9) 08/29/21 05:15 Total Bilirubin 0.90 mg/dL (0.2-1.0) 08/27/21 05:01 AST 17 Units/L (15-37) 08/27/21 05:01 ALT 19 Units/L (12-78) 08/27/21 05:01 Alkaline Phosphatase 110 Units/L (46-116) 08/27/21 05:01 Creatine Kinase 42 Units/L (26-192) 08/27/21 05:01 CK-MB (CK-2) 1.0 ng/mL (0-4.0) 08/27/21 05:01 CK/CKMB % Calc 2.4 % (<4) 08/27/21 05:01 Troponin I 0.08 ng/mL (0-1.5) 08/27/21 05:01 B-Natriuretic Peptide 1870 pg/mL (0-79) H* 08/27/21 05:01 Total Protein 6.2 g/dL (6.4-8.2) L 08/27/21 05:01 Albumin 2.9 g/dL (3.4-5.0) L 08/27/21 05:01 Globulin 3.3 g/dL (2.5-4.5) 08/27/21 05:01 Albumin/Globulin Ratio 0.9 Ratio (1.1-2.1) L 08/27/21 05:01 Specimen Type Random urine 08/26/21 17:10 Urine Color Yellow (YELLOW) 08/26/21 17:10 Urine Appearance Cloudy (CLEAR) 08/26/21 17:10 Urine pH 6.0 (5.0 - 8.0) 08/26/21 17:10 Ur Specific [place] 1.020 (1.000-1.030) 08/26/21 17:10 Urine Protein 3+ (NEGATIVE) 08/26/21 17:10 Urine Glucose (UA) Negative (NEGATIVE) 08/26/21 17:10 Urine Ketones 1+ (NEGATIVE) 08/26/21 17:10 Urine Occult Blood 4+ (NEGATIVE) 08/26/21 17:10 Urine Nitrite Negative (NEGATIVE) 08/26/21 17:10 Urine Bilirubin Negative (NEGATIVE) 08/26/21 17:10 Urine Urobilinogen 1+ (NORMAL) 08/26/21 17:10 Ur Leukocyte Esterase 3+ (NEGATIVE) 08/26/21 17:10 Urine RBC 30-50 /HPF (0-3) A 08/26/21 17:10 Urine WBC Tntc /HPF (0-5) A 08/26/21 17:10 Ur Squamous Epith Cells Rare /HPF (NEGATIVE) 08/26/21 17:10 Urine Bacteria Trace /HPF (NEGATIVE) 08/26/21 17:10 Ur Culture Indicated? Yes/culture set up 08/26/21 17:10 Digoxin 0.76 ng/mL (0.9-2) L 08/29/21 05:15 SARS-CoV-2 (PCR) Negative (NEGATIVE) 08/26/21 15:35 Influenza Type A (PCR) Negative (NEGATIVE) 08/26/21 15:35 Influenza Type B (PCR) Negative (NEGATIVE) 08/26/21 15:35 RSV (PCR) Negative (NEGATIVE) 08/26/21 15:35 Plan (1) Atrial fibrillation with RVR: Status: Acute (2) SOB (shortness of breath): Status: Acute (3) Urinary tract infection: Status: Acute Qualifiers: Hematuria presence: with hematuria Urinary tract infection type: site unspecified Qualified Code(s): N39.0 - Urinary tract infection, site not specified; R31.9 - Hematuria, unspecified (4) CHF (congestive heart failure): Status: Chronic Qualifiers: Heart failure chronicity: acute on chronic Heart failure type: unspecified Qualified Code(s): I50.9 - Heart failure, unspecified (5) Hypertension: Status: Chronic Qualifiers: Hypertension type: primary hypertension Qualified Code(s): I10 - Essential (primary) hypertension (6) Diabetes: Status: Acute Qualifiers: Diabetes mellitus complication detail: without coma Diabetes mellitus complication status: with hypoglycemia Diabetes mellitus detention insulin use: with detention use Diabetes mellitus type: type 2 Qualified Code(s): E11.649 - Type 2 diabetes mellitus with hypoglycemia without coma; 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
[2021-08-29] MEDS: NovoLIN R (or HumuLIN R) SUBCUT PRN ×2 (11:33→17:10)
[2021-08-29] MEDS ORDERED: SNACK - Diabetic Appropriate PO SCH (20:00)
[2021-08-29] MEDS: SNACK - Diabetic Appropriate PO SCH (20:33)
[2021-08-29] MEDS: LIPITOR TAB 20 MG PO SCH (21:32)
[2021-08-29] MEDS: INVANZ INJ 1 GM VIAL 1 GM in NS 100 ML IV + SPIKE MINIBAG* 100 ML IV SCH (21:33)
[2021-08-30 05:09] LABS: BLOOD UREA NITROGEN 14 mg/dL (7-18); CALCIUM 8.2 mg/dL (8.5-10.1); CARBON DIOXIDE 28.7 mmol/L (21-32); CHLORIDE 108 mmol/L (98-107); CREATININE 1.03 mg/dL (0.55-1.02); DIGOXIN 0.88 ng/mL (0.9-2); SODIUM 144 mmol/L (136-145); eGFR NON BLACK RACES 54 (>60)
[2021-08-30 05:11] LABS: BASOPHILS # (AUTO) 0.1 X10^3/uL (0.0-0.1); BASOPHILS % (AUTO) 1.3 % (0.2-1.0); EOSINOPHILS # (AUTO) 0.4 x10^3/uL (0.0-0.2); EOSINOPHILS % (AUTO) 8.1 % (0.9-2.9); HEMATOCRIT 35.4 % (36.0-47.0); HEMOGLOBIN 11.7 g/dL (12.0-16.0); LYMPHOCYTES # (AUTO) 0.9 X10^3/uL (1.3-2.9); LYMPHOCYTES % (AUTO) 17.9 % (21.0-51.0); MEAN CORPUSCULAR HEMOGLOBIN 30.2 pg (27.0-34.0); MEAN CORPUSCULAR HGB CONC 33.1 g/dL (33.0-35.0); MEAN CORPUSCULAR VOLUME 91.2 fL (80.0-100.0); MEAN PLATELET VOLUME 7.4 fL (7.4-11.0); MONOCYTES # (AUTO) 0.7 x10^3/uL (0.3-0.8); NEUTROPHILS % (AUTO) 58.7 % (42.0-75.0); PLATELET COUNT 191 X10^3/uL (150.0-450.0); RED BLOOD COUNT 3.88 X10^6/uL (3.5-5.4); WHITE BLOOD COUNT 5.2 X10^3/uL (3.6-10.0)
[2021-08-30] MEDS: ACCUNEB 1.25 MG NEBULE NEB SCH (05:49)
[2021-08-30] MEDS: LEVEMIR SC SCH (08:48)
[2021-08-30] MEDS: TAB-A-VITE PO SCH (08:48)
[2021-08-30] MEDS: ELIQUIS PO SCH (08:49)
[2021-08-30] MEDS: FERROUS GLUCONATE PO SCH (08:49)
[2021-08-30] MEDS: COLACE CAP 100 MG PO SCH (08:49)
[2021-08-30] MEDS: K-DUR TAB 20 MEQ PO SCH (08:50)
[2021-08-30] MEDS: LANOXIN or DIGITEK PO SCH (08:50)
[2021-08-30] MEDS: VITAMIN C PO SCH (08:51)
[2021-08-30] MEDS: LOPRESSOR TAB 50 MG PO SCH (08:51)
[2021-08-30] MEDS: SYNTHROID 75 mcg TAB PO SCH (08:52)
[2021-08-30] MEDS: THERMOTABS PO SCH (08:52)
[2021-08-30] MEDS: PROTONIX TAB 40 MG PO SCH (08:52)
[2021-08-30] MEDS: MIRALAX POWDER (1 DOSE 17 G) PO SCH (08:53)
[2021-08-30] MEDS: MYLICON TAB 80 MG CHEW PO SCH (08:53)
[2021-08-30] MEDS: MEGACE PO SCH (08:53)
[2021-08-30] MEDS: ZESTRIL TAB 40 MG PO SCH (08:53)
[2021-08-30] MEDS: NEURONTIN CAP 300 MG PO SCH (08:53)
[2021-08-30] MEDS: NITRODUR PATCH 0.4 MG/HR TD SCH (08:54)
[2021-08-30] MEDS: XALATAN OP SCH (09:10)
[2021-08-30] MEDS: PULMICORT NEB TX 0.5 MG NEB SCH (09:28)
--- NOTE | 2021-08-30 10:45 | W.DIS.FURT ---
Summary of Discharge Admission Diagnosis Patient Problems (Updated 08/29/21 @ 10:58 by Merna Neely) Urinary tract infection (Acute) N39.0 SOB (shortness of breath) (Acute) R06.02 Atrial fibrillation with RVR (Acute) I48.91 SOB (shortness of breath) (Acute) R06.02 CHF (congestive heart failure) (Chronic) I50.9 Hypertension (Chronic) I10 Vital Signs: Vital Signs (72 hours) 08/27/21 12:00 08/27/21 13:00 08/27/21 16:00 Temperature 98.8 F 98.9 F Pulse Rate 81 Pulse Rate [Right Radial] 98 H 91 H Respiratory Rate 18 19 Blood Pressure [Left Arm] 171/95 149/90 Blood Pressure [Right Arm] O2 Sat by Pulse Oximetry 98 98 97 08/27/21 20:00 08/27/21 21:50 08/28/21 00:00 Temperature 97.5 F L 98.0 F Pulse Rate 89 Pulse Rate [Right Radial] 89 98 H Respiratory Rate 21 20 Blood Pressure [Left Arm] 185/86 139/80 Blood Pressure [Right Arm] O2 Sat by Pulse Oximetry 99 97 98 08/28/21 04:00 08/28/21 08:00 08/28/21 08:45 Temperature 98.2 F 98.7 F Pulse Rate 92 H Pulse Rate [Right Radial] 76 92 H Respiratory Rate 19 19 Blood Pressure [Left Arm] 142/80 137/77 Blood Pressure [Right Arm] O2 Sat by Pulse Oximetry 100 100 08/28/21 08:59 08/28/21 12:00 08/28/21 15:43 Temperature 97.0 F L 97.8 F Pulse Rate 103 H Pulse Rate [Right Radial] 100 H 93 H Respiratory Rate 19 20 Blood Pressure [Left Arm] 131/77 160/92 Blood Pressure [Right Arm] O2 Sat by Pulse Oximetry 99 95 100 08/28/21 20:00 08/28/21 21:05 08/29/21 00:00 Temperature 98.2 F 98.5 F Pulse Rate 91 H Pulse Rate [Right Radial] 87 79 Respiratory Rate 22 20 Blood Pressure [Left Arm] Blood Pressure [Right Arm] 142/78 154/74 O2 Sat by Pulse Oximetry 99 97 98 08/29/21 04:00 08/29/21 08:00 08/29/21 08:57 Temperature 98.8 F 98.2 F Pulse Rate 105 H Pulse Rate [Right Radial] 91 H 110 H Respiratory Rate 22 32 H Blood Pressure [Left Arm] Blood Pressure [Right Arm] 152/88 154/80 O2 Sat by Pulse Oximetry 98 96 08/29/21 09:18 08/29/21 12:00 08/29/21 16:00 Temperature 97.8 F 98.4 F Pulse Rate 91 H Pulse Rate [Right Radial] 121 H 102 H Respiratory Rate 30 H 26 H Blood Pressure [Left Arm] Blood Pressure [Right Arm] 127/81 154/87 O2 Sat by Pulse Oximetry 97 97 98 08/29/21 20:00 08/29/21 20:01 08/30/21 00:00 Temperature 98.4 F 98.3 F Pulse Rate 85 Pulse Rate [Right Radial] 86 93 H Respiratory Rate 20 20 Blood Pressure [Left Arm] 145/89 135/91 Blood Pressure [Right Arm] O2 Sat by Pulse Oximetry 98 97 99 08/30/21 04:00 08/30/21 05:49 08/30/21 07:39 Temperature 98.8 F 98.2 F Pulse Rate 88 Pulse Rate [Right Radial] 92 H 100 H Respiratory Rate 18 24 Blood Pressure [Left Arm] 142/80 Blood Pressure [Right Arm] 137/94 O2 Sat by Pulse Oximetry 100 96 98 08/30/21 08:50 08/30/21 09:28 Temperature Pulse Rate 100 H 99 H Pulse Rate [Right Radial] Respiratory Rate Blood Pressure [Left Arm] Blood Pressure [Right Arm] O2 Sat by Pulse Oximetry 96 Labs: Laboratory Last Values WBC 5.2 X10^3/uL (3.6-10.0) 08/30/21 04:00 RBC 3.88 X10^6/uL (3.5-5.4) 08/30/21 04:00 Hgb 11.7 g/dL (12.0-16.0) L 08/30/21 04:00 Hct 35.4 % (36.0-47.0) L 08/30/21 04:00 MCV 91.2 fL (80.0-100.0) 08/30/21 04:00 MCH 30.2 pg (27.0-34.0) 08/30/21 04:00 MCHC 33.1 g/dL (33.0-35.0) 08/30/21 04:00 RDW 18.0 % (11.6-16.5) H 08/30/21 04:00 Plt Count 191 X10^3/uL (150.0-450.0) 08/30/21 04:00 MPV 7.4 fL (7.4-11.0) 08/30/21 04:00 Neut % (Auto) 58.7 % (42.0-75.0) 08/30/21 04:00 Lymph % (Auto) 17.9 % (21.0-51.0) L 08/30/21 04:00 [place] % (Auto) 14.0 % (0.0-13.0) H 08/30/21 04:00 Eos % (Auto) 8.1 % (0.9-2.9) H 08/30/21 04:00 Baso % (Auto) 1.3 % (0.2-1.0) H 08/30/21 04:00 Neut # (Auto) 3.0 x10^3/uL (2.2-4.8) 08/30/21 04:00 Lymph # (Auto) 0.9 X10^3/uL (1.3-2.9) L 08/30/21 04:00 [place] # (Auto) 0.7 x10^3/uL (0.3-0.8) 08/30/21 04:00 Eos # (Auto) 0.4 x10^3/uL (0.0-0.2) H 08/30/21 04:00 Baso # (Auto) 0.1 X10^3/uL (0.0-0.1) 08/30/21 04:00 Absolute Nucleated RBC 0.1 /100WBC 08/30/21 04:00 Sodium 144 mmol/L (136-145) 08/30/21 04:00 Corrected Sodium TNP 08/30/21 04:00 Potassium 4.0 mmol/L (3.5-5.1) 08/30/21 04:00 Chloride 108 mmol/L (98-107) H 08/30/21 04:00 Carbon Dioxide 28.7 mmol/L (21-32) 08/30/21 04:00 BUN 14 mg/dL (7-18) 08/30/21 04:00 Creatinine 1.03 mg/dL (0.55-1.02) H 08/30/21 04:00 Est GFR (MDRD) Af Amer > 60 (>60) 08/30/21 04:00 Est GFR (MDRD) Non-Af 54 (>60) L 08/30/21 04:00 Glucose 99 mg/dL (65-99) 08/30/21 04:00 POC Glucose (mg/dL) 83 mg/dL (65-99) 08/30/21 06:14 Calcium 8.2 mg/dL (8.5-10.1) L 08/30/21 04:00 Corrected Calcium 9.4 mg/dL (8.5-10.1) 08/27/21 05:01 Magnesium 1.9 mg/dL (1.7-2.9) 08/29/21 05:15 Total Bilirubin 0.90 mg/dL (0.2-1.0) 08/27/21 05:01 AST 17 Units/L (15-37) 08/27/21 05:01 ALT 19 Units/L (12-78) 08/27/21 05:01 Alkaline Phosphatase 110 Units/L (46-116) 08/27/21 05:01 Creatine Kinase 42 Units/L (26-192) 08/27/21 05:01 CK-MB (CK-2) 1.0 ng/mL (0-4.0) 08/27/21 05:01 CK/CKMB % Calc 2.4 % (<4) 08/27/21 05:01 Troponin I 0.08 ng/mL (0-1.5) 08/27/21 05:01 B-Natriuretic Peptide 1870 pg/mL (0-79) H* 08/27/21 05:01 Total Protein 6.2 g/dL (6.4-8.2) L 08/27/21 05:01 Albumin 2.9 g/dL (3.4-5.0) L 08/27/21 05:01 Globulin 3.3 g/dL (2.5-4.5) 08/27/21 05:01 Albumin/Globulin Ratio 0.9 Ratio (1.1-2.1) L 08/27/21 05:01 Specimen Type Random urine 08/26/21 17:10 Urine Color Yellow (YELLOW) 08/26/21 17:10 Urine Appearance Cloudy (CLEAR) 08/26/21 17:10 Urine pH 6.0 (5.0 - 8.0) 08/26/21 17:10 Ur Specific [place] 1.020 (1.000-1.030) 08/26/21 17:10 Urine Protein 3+ (NEGATIVE) 08/26/21 17:10 Urine Glucose (UA) Negative (NEGATIVE) 08/26/21 17:10 Urine Ketones 1+ (NEGATIVE) 08/26/21 17:10 Urine Occult Blood 4+ (NEGATIVE) 08/26/21 17:10 Urine Nitrite Negative (NEGATIVE) 08/26/21 17:10 Urine Bilirubin Negative (NEGATIVE) 08/26/21 17:10 Urine Urobilinogen 1+ (NORMAL) 08/26/21 17:10 Ur Leukocyte Esterase 3+ (NEGATIVE) 08/26/21 17:10 Urine RBC 30-50 /HPF (0-3) A 08/26/21 17:10 Urine WBC Tntc /HPF (0-5) A 08/26/21 17:10 Ur Squamous Epith Cells Rare /HPF (NEGATIVE) 08/26/21 17:10 Urine Bacteria Trace /HPF (NEGATIVE) 08/26/21 17:10 Ur Culture Indicated? Yes/culture set up 08/26/21 17:10 Digoxin 0.88 ng/mL (0.9-2) L 08/30/21 04:00 SARS-CoV-2 (PCR) Negative (NEGATIVE) 08/26/21 15:35 Influenza Type A (PCR) Negative (NEGATIVE) 08/26/21 15:35 Influenza Type B (PCR) Negative (NEGATIVE) 08/26/21 15:35 RSV (PCR) Negative (NEGATIVE) 08/26/21 15:35 Reason For Visit: A FIB WITH RVR, CHF, UTI Discharge Diagnosis All Active Problems (Updated 08/29/21 @ 10:58 by Merna Neely) Diabetes (Acute) Sepsis (Acute) Urinary tract infection (Acute) Hypotension (Acute) Pneumonia (Acute) Dehydration (Acute) RSV (respiratory syncytial virus infection) (Acute) Shortness of breath (Acute) CHF (congestive heart failure) (Acute) Infection due to respiratory syncytial virus (RSV) (Acute) SOB (shortness of breath) (Acute) Atrial fibrillation with RVR (Acute) SOB (shortness of breath) (Acute) Fever (Acute) Drug-induced hypotension (Acute) Acute hyponatremia (Acute) CHF (congestive heart failure) (Chronic) Chronic kidney disease (CKD) (Chronic) Atrial fibrillation with rapid ventricular response (Chronic) CHF (congestive heart failure) (Chronic) Atrial fibrillation (Chronic) Sleep apnea (Chronic) Depression (Chronic) Cerebrovascular disease (Chronic) Diabetes mellitus, type 2 (Chronic) GERD (gastroesophageal reflux disease) (Chronic) Hyperlipidemia (Chronic) Hypothyroidism (Chronic) Hypertension (Chronic) Osteoporosis (Chronic) Restless leg syndrome (Chronic) History of anemia (Chronic) Erosive esophagitis (Chronic) Erosive gastritis (Chronic) CHF (congestive heart failure) (Chronic) Generalized weakness (Chronic) Plan of Treatment: Continue with present treatment and follow up plan. Pt is to keep follow up appointment as instructed and take medications as ordered. Discharge Medications Discharge Medications: tuberculin,PPD,multi-puncture Allergy (Verified 03/10/20 13:33) CONTINUE taking the following medications apixaban [Eliquis] 2.5 mg PO BID 08/26/21 [History] calcium citrate-vitamin D3 [Sarepta Calcium-Vitamin D3] 1 tab DAILY 08/27/21 [History] cranberry fruit concentrate [Azo Cranberry] 500 mg PO DAILY 08/27/21 [History] metoprolol tartrate 50 mg PO BID 08/27/21 [History] nut.tx.gluc.intol,lac-free,soy [Glucerna] 1 ea PO DIRECTED 08/27/21 [History] New Prescriptions levalbuterol HCl 1.25 mg NEB BID PRN #36 ml 08/30/21 [Rx] Discharge Plan Discharge Plan Patient Disposition: 64 [facility] Condition: Stable Health Concerns: Post Hospitalization: new medications and changes needed to prevent readmission or further decline. Pt educated and given instructions on all concerns. Plan of Treatment: Continue with present treatment and follow up plan. Pt is to keep follow up ap pointment as instructed and take medications as ordered. Prescription drug monitoring program results: PDMP was not reviewed Prescriptions: New levalbuterol HCl 1.25 mg/3 mL Solution For Nebulization 1.25 mg NEB BID PRN (Reason: shortness of breath or wheezing) Qty: 36 RF: 1 digoxin [Digitek] 125 mcg (0.125 mg) Tablet 0.125 mg PO DAILY 30 Days Qty: 30 RF: 0 Continued simethicone [Mi-Acid Gas Relief(simethicon)] 80 MG tablet,chewable 80 mg PO BID RF: 0 pantoprazole [Protonix] 40 mg Tablet,Delayed Release (Dr/Ec) 40 mg PO BID RF: 0 ascorbic acid (vitamin C) [Vitamin C] 500 mg Tablet 500 mg PO BID RF: 0 docusate sodium [Colace] 100 mg Capsule 100 mg PO BID RF: 0 multivitamin [Daily Multi-Vitamin] Tablet 1 tab PO DAILY RF: 0 atorvastatin [Lipitor] 20 mg Tablet 20 mg PO HS RF: 0 tramadol [Ultram] 50 mg Tablet 50 mg PO Q6HR PRN (Reason: Pain) RF: 0 ferrous fumarate [Ferrocite] 324 mg (106 mg iron) Tablet 324 mg PO DAILY RF: 0 Novolin R Regular U-100 Insuln 100 unit/mL Solution See Rx Instructions .ROUTE .COMPLEX RF: 0 Artificial Tears (cmc) 1 % Drops 1 drp OPHTHALMIC (EYE) TID RF: 0 levothyroxine 75 mcg tablet 75 mcg PO DAILY RF: 0 clonidine 0.3 mg/24 hr patch weekly 0.3 mg transdermal .7DAYS RF: 0 polyethylene glycol 3350 [Miralax] 17 gram Powder In Packet 17 g PO DAILY RF: 0 latanoprost 0.005 % drops 1 drp OPHTHALMIC (EYE) BID RF: 0 nitroglycerin 0.4 mg/hr patch 24 hour 1 patch topical DAILY RF: 0 gabapentin 300 mg capsule 300 mg PO BID RF: 0 hydralazine 50 mg tablet 50 mg PO TID RF: 0 megestrol 20 mg tablet 20 mg PO BID RF: 0 lisinopril 40 mg tablet 40 mg PO BID RF: 0 budesonide-formoterol [Symbicort] 80-4.5 mcg/actuation HFA aerosol inhaler 2 inh INHALATION BID RF: 0 Thermotabs 287-180-15 mg Tablet 1 tab PO DAILY Qty: 30 RF: 5 Eliquis 2.5 mg tablet 2.5 mg PO BID RF: 0 metoprolol tartrate 50 mg Tablet 50 mg PO BID RF: 0 calcium citrate-vitamin D3 [Sarepta Calcium-Vitamin D3] 200 mg-6.25 mcg (250 unit) Tablet 1 tab DAILY RF: 0 Azo Cranberry 250 mg Tablet,Chewable 500 mg PO DAILY RF: 0 Glucerna Liquid 1 ea PO DIRECTED RF: 0 Changed Levemir U-100 Insulin 100 unit/mL solution 10 unit SUBCUT DAILY Qty: 0 RF: 0 Follow ups/Referrals Follow ups/Referrals: Ryan Phillips [Primary Care Provider] - 3 days Instructions Activity Restrictions/Additional Instructions: Continue Invanz 1g IV daily x 6 days Stand Alone Forms: Excuse From Work or School, [facility], Patient Portal, Social Distancing
[2021-08-30 12:36] VITALS: BP 131/76
[2021-08-30] MEDS ORDERED: XOPENEX 1.25 MG/3 ML NEBULE NEB ONE (12:58)
[2021-08-30] MEDS ORDERED: XOPENEX 1.25 MG/3 ML NEBULE NEB SCH (14:00)
== END 2021-08-30 13:00 | DRG 309 ==
LOC: MED/SURG 11:08 → ER 11:08 → MED/SURG 16:54
PROVIDERS: ADMIT Internal Medicine; ATTEND Internal Medicine
DX: I11.0 Hypertensive heart disease with heart failure; R31.9 Hematuria, unspecified; K21.9 Gastro-esophageal reflux disease without esophagitis; I25.10 Atherosclerotic heart disease of native coronary artery without angina pectoris; Z20.822 Contact with and (suspected) exposure to COVID-19; B95.1 Streptococcus, group B, as the cause of diseases classified elsewhere; Z79.4 Long term (current) use of insulin; N39.0 Urinary tract infection, site not specified; I50.9 Heart failure, unspecified; E11.649 Type 2 diabetes mellitus with hypoglycemia without coma; I48.91 Unspecified atrial fibrillation; R06.02 Shortness of breath; E03.8 Other specified hypothyroidism

== ENCOUNTER 2022-04-15 06:58 | Observation (INO) ==
[2022-04-15] MEDS ORDERED: XYLOCAINE 1 % (PLAIN) ONE (07:04)
[2022-04-15] MEDS ORDERED: BETADINE SOLN ONE (07:05)
[2022-04-15] MEDS ORDERED: NS 100 ML IV 100 ML ONE (07:37)
[2022-04-15] MEDS ORDERED: ANCEF VIAL 1 GRAM ONE (07:37)
[2022-04-15] MEDS ORDERED: NS 1,000 ML IV 1,000 ML ONE (07:37)
[2022-04-15] MEDS ORDERED: DIPRIVAN VIAL 20 ML ONE (07:41)
[2022-04-15] MEDS ORDERED: BYFAVO INJ IVP ONE (07:43)
[2022-04-15] MEDS ORDERED: NovoLIN R (or HumuLIN R) SUBCUT ONE (07:48)
[2022-04-15] MEDS ORDERED: NovoLIN R (or HumuLIN R) ONE (07:49)
[2022-04-15 08:03] VITALS: BMI 24.3
[2022-04-15] MEDS ORDERED: KETAMINE HCL ONE (08:09)
[2022-04-15] MEDS: TOPROL XL PO SCH ×2 (09:00→20:56)
[2022-04-15] MEDS: ZESTRIL TAB 40 MG PO SCH ×2 (09:00→20:56)
[2022-04-15] MEDS: SYNTHROID 75 mcg TAB PO SCH (09:01)
[2022-04-15] MEDS: NS 1,000 ML IV 1,000 ML IV SCH (09:15)
[2022-04-15] MEDS: VANCOMYCIN IV *PREMIX 1 G/200 ML BAG 1 G/200 ML PIGGYBACK IV SCH (10:55)
[2022-04-15] MEDS: OTBS NS XX SCH ×3 (11:43→20:55)
[2022-04-15 11:55] LABS: BASOPHILS # (AUTO) 0.1 X10^3/uL (0.0-0.1); BASOPHILS % (AUTO) 1.3 % (0.2-1.0); EOSINOPHILS # (AUTO) 0.3 x10^3/uL (0.0-0.2); EOSINOPHILS % (AUTO) 4.6 % (0.9-2.9); HEMATOCRIT 34.7 % (36.0-47.0); HEMOGLOBIN 11.9 g/dL (12.0-16.0); LYMPHOCYTES # (AUTO) 1.3 X10^3/uL (1.3-2.9); LYMPHOCYTES % (AUTO) 19.7 % (21.0-51.0); MEAN CORPUSCULAR HEMOGLOBIN 32.5 pg (27.0-34.0); MEAN CORPUSCULAR HGB CONC 34.3 g/dL (33.0-35.0); MEAN CORPUSCULAR VOLUME 94.5 fL (80.0-100.0); MEAN PLATELET VOLUME 6.5 fL (7.4-11.0); MONOCYTES # (AUTO) 0.8 x10^3/uL (0.3-0.8); MONOCYTES % (AUTO) 11.4 % (0.0-13.0); NEUTROPHILS # (AUTO) 4.2 x10^3/uL (2.2-4.8); RED BLOOD COUNT 3.67 X10^6/uL (3.5-5.4); RED CELL DISTRIBUTION WIDTH 14.2 % (11.6-16.5); WHITE BLOOD COUNT 6.7 X10^3/uL (3.6-10.0)
[2022-04-15 12:07] LABS: ALBUMIN 2.9 g/dL (3.4-5.0); CALCIUM 8.7 mg/dL (8.5-10.1); CARBON DIOXIDE 22.5 mmol/L (21-32); COR CA(FOR HYPOALB) 9.6 mg/dL (8.5-10.1); CREATININE 1.19 mg/dL (0.55-1.02); TOTAL PROTEIN 7.1 g/dL (6.4-8.2)
[2022-04-15] MEDS ORDERED: STERILE WATER IRRIGATION IR ONE (15:36)
[2022-04-15] MEDS: ELIQUIS PO SCH (20:54)
[2022-04-15] MEDS: PULMICORT NEB TX 0.5 MG NEB SCH (21:00)
[2022-04-15] MEDS ORDERED: LIPITOR TAB 20 MG PO SCH (21:13)
[2022-04-15] MEDS: NEURONTIN CAP 300 MG PO SCH (21:40)
[2022-04-15] MEDS: APRESOLINE TAB 25 MG PO SCH (21:40)
[2022-04-15] MEDS: PROTONIX TAB 40 MG PO SCH (21:41)
[2022-04-15] MEDS ORDERED: CATAPRES-TTS-3 TD SCH (22:00)
[2022-04-15] MEDS ORDERED: LOPRESSOR INJ 5 MG AMP IVP PRN (22:51)
[2022-04-15] MEDS ORDERED: LANOXIN INJ IVP ONE ×2 (22:52→22:59)
[2022-04-15] MEDS ORDERED: LOPRESSOR INJ 5 MG AMP ONE (23:08)
[2022-04-15] MEDS ORDERED: LANOXIN INJ ONE (23:08)
[2022-04-16 05:15] LABS: BASOPHILS # (AUTO) 0.1 X10^3/uL (0.0-0.1); BASOPHILS % (AUTO) 1.1 % (0.2-1.0); EOSINOPHILS # (AUTO) 0.3 x10^3/uL (0.0-0.2); EOSINOPHILS % (AUTO) 4.4 % (0.9-2.9); HEMATOCRIT 33.8 % (36.0-47.0); HEMOGLOBIN 11.6 g/dL (12.0-16.0); LYMPHOCYTES # (AUTO) 1.4 X10^3/uL (1.3-2.9); LYMPHOCYTES % (AUTO) 19.4 % (21.0-51.0); MEAN CORPUSCULAR HEMOGLOBIN 32.4 pg (27.0-34.0); MEAN CORPUSCULAR HGB CONC 34.5 g/dL (33.0-35.0); MEAN CORPUSCULAR VOLUME 93.9 fL (80.0-100.0); MEAN PLATELET VOLUME 6.8 fL (7.4-11.0); MONOCYTES # (AUTO) 0.8 x10^3/uL (0.3-0.8); MONOCYTES % (AUTO) 11.1 % (0.0-13.0); NEUTROPHILS # (AUTO) 4.5 x10^3/uL (2.2-4.8); RED CELL DISTRIBUTION WIDTH 13.8 % (11.6-16.5); WHITE BLOOD COUNT 7.1 X10^3/uL (3.6-10.0)
[2022-04-16 05:20] LABS: ALBUMIN 2.9 g/dL (3.4-5.0); CALCIUM 8.8 mg/dL (8.5-10.1); CARBON DIOXIDE 22.3 mmol/L (21-32); COR CA(FOR HYPOALB) 9.7 mg/dL (8.5-10.1); CREATININE 1.12 mg/dL (0.55-1.02); TOTAL PROTEIN 6.9 g/dL (6.4-8.2)
[2022-04-16] MEDS: OTBS NS XX SCH ×2 (05:37→14:39)
[2022-04-16] MEDS: APRESOLINE TAB 25 MG PO SCH ×2 (05:37→14:37)
[2022-04-16] MEDS: ELIQUIS PO SCH (08:41)
[2022-04-16] MEDS: NEURONTIN CAP 300 MG PO SCH (08:44)
[2022-04-16] MEDS: NS 1,000 ML IV 1,000 ML IV SCH (08:45)
[2022-04-16] MEDS: TOPROL XL PO SCH (08:46)
[2022-04-16] MEDS: VANCOMYCIN IV *PREMIX 1 G/200 ML BAG 1 G/200 ML PIGGYBACK IV SCH (08:46)
[2022-04-16] MEDS: PROTONIX TAB 40 MG PO SCH (08:46)
[2022-04-16] MEDS: ZESTRIL TAB 40 MG PO SCH (08:47)
[2022-04-16] MEDS: SYNTHROID 75 mcg TAB PO SCH (08:52)
[2022-04-16] MEDS ORDERED: COLACE CAP 100 MG PO SCH (09:00)
[2022-04-16] MEDS ORDERED: CRANBERRY EXTRACT VITAMIN C PO SCH (09:00)
[2022-04-16] MEDS ORDERED: TAB-A-VITE PO SCH (09:00)
[2022-04-16] MEDS ORDERED: LEVEMIR SC SCH (09:00)
[2022-04-16] MEDS ORDERED: OSCAL+D or CALTRATE+D PO SCH (09:00)
[2022-04-16] MEDS ORDERED: HEMOCYTE-PLUS PO SCH (09:00)
[2022-04-16] MEDS ORDERED: NovoLIN R (or HumuLIN R) SC SCH (09:00)
[2022-04-16] MEDS ORDERED: MAXZIDE 37.5/25 MG PO SCH (09:00)
[2022-04-16] MEDS ORDERED: MIRALAX POWDER (1 DOSE 17 G) PO SCH (09:00)
[2022-04-16] MEDS ORDERED: [UNRECOGNIZED DRUG - OTHER] PO SCH (09:00)
[2022-04-16] MEDS ORDERED: XALATAN OP SCH (09:00)
[2022-04-16] MEDS ORDERED: NITRODUR PATCH 0.4 MG/HR TD SCH (09:00)
[2022-04-16] MEDS ORDERED: TRIAMTERENE HYDROCHLOROTHIAZID PO SCH (09:00)
[2022-04-16] MEDS ORDERED: VITAMIN C PO SCH (09:00)
[2022-04-16] MEDS ORDERED: [UNRECOGNIZED DRUG - OTHER] PO SCH (09:00)
[2022-04-16] MEDS ORDERED: POTASSIUM CHLORIDE LIQ 20 MEQ UDC PO SCH (09:00)
[2022-04-16] MEDS ORDERED: SYMBICORT INH 80/4.5 mcg IN SCH (09:00)
[2022-04-16] MEDS ORDERED: MYLICON TAB 80 MG CHEW PO SCH (09:00)
[2022-04-16] MEDS: PULMICORT NEB TX 0.5 MG NEB SCH (09:27)
--- NOTE | 2022-04-16 11:00 | DR.PROGNOT ---
Hospital Progress Notes - Progress Note for Day of: Progress Note Date: 04/16/22 - Chief Complaint Chief Complaint: doing fairly well .. awake , alert . fair oral intake .. heart rate is controlled now < than 100 and stable BP . - Past Medical Family Social History Past Med/Fam/Surg Hx: No changes since H&P Allergies: Allergies tuberculin,PPD,multi-puncture Allergy (Verified 03/10/20 13:33) - Review Of Systems ROS: No change since H&P - Vital Signs Vital Signs: Temperature 97.6 F Pulse Rate [Left Brachial] 78 Pulse Rate 80 Respiratory Rate 22 Blood Pressure [Left Arm] 143/75 Blood Pressure [Right Arm] 126/88 Blood Pressure 158/80 O2 Sat by Pulse Oximetry 99 - Physical Exam Oriented: Normal Ear: Normal Nose: Normal Respiratory: Normal GI:Auscultation: Normal GI:Palpation: Normal GI: Tenderness: Normal Skin: Other (Lt hip ulcer 3 x 3 cm .. stage 3 . no necrosis or active infection ) Speech Pattern: Clear - Laboratory and Diagnostics Result Diagrams: 04/16/22 04:25 04/16/22 04:25 Labs: Laboratory WBC 7.1 X10^3/uL (3.6-10.0) 04/16/22 04:25 RBC 3.60 X10^6/uL (3.5-5.4) 04/16/22 04:25 Hgb 11.6 g/dL (12.0-16.0) L 04/16/22 04:25 Hct 33.8 % (36.0-47.0) L 04/16/22 04:25 MCV 93.9 fL (80.0-100.0) 04/16/22 04:25 MCH 32.4 pg (27.0-34.0) 04/16/22 04:25 MCHC 34.5 g/dL (33.0-35.0) 04/16/22 04:25 RDW 13.8 % (11.6-16.5) 04/16/22 04:25 Plt Count 353 X10^3/uL (150.0-450.0) 04/16/22 04:25 MPV 6.8 fL (7.4-11.0) L 04/16/22 04:25 Neut % (Auto) 64.0 % (42.0-75.0) 04/16/22 04:25 Lymph % (Auto) 19.4 % (21.0-51.0) L 04/16/22 04:25 [place] % (Auto) 11.1 % (0.0-13.0) 04/16/22 04:25 Eos % (Auto) 4.4 % (0.9-2.9) H 04/16/22 04:25 Baso % (Auto) 1.1 % (0.2-1.0) H 04/16/22 04:25 Neut # (Auto) 4.5 x10^3/uL (2.2-4.8) 04/16/22 04:25 Lymph # (Auto) 1.4 X10^3/uL (1.3-2.9) 04/16/22 04:25 [place] # (Auto) 0.8 x10^3/uL (0.3-0.8) 04/16/22 04:25 Eos # (Auto) 0.3 x10^3/uL (0.0-0.2) H 04/16/22 04:25 Baso # (Auto) 0.1 X10^3/uL (0.0-0.1) 04/16/22 04:25 Absolute Nucleated RBC 0.1 /100WBC 04/16/22 04:25 Sodium 131 mmol/L (136-145) L 04/16/22 04:25 Corrected Sodium 134 mmol/L (136-145) L 04/16/22 04:25 Potassium 4.5 mmol/L (3.5-5.1) 04/16/22 04:25 Chloride 101 mmol/L (98-107) 04/16/22 04:25 Carbon Dioxide 22.3 mmol/L (21-32) 04/16/22 04:25 BUN 22 mg/dL (7-18) H 04/16/22 04:25 Creatinine 1.12 mg/dL (0.55-1.02) H 04/16/22 04:25 Est GFR (MDRD) Af Amer 59 (>60) 04/16/22 04:25 Est GFR (MDRD) Non-Af 49 (>60) L 04/16/22 04:25 Glucose 224 mg/dL (65-99) H 04/16/22 04:25 POC Glucose (mg/dL) 214 mg/dL (65-99) H 04/16/22 05:04 Calcium 8.8 mg/dL (8.5-10.1) 04/16/22 04:25 Corrected Calcium 9.7 mg/dL (8.5-10.1) 04/16/22 04:25 Total Bilirubin 0.40 mg/dL (0.2-1.0) 04/16/22 04:25 AST 48 Units/L (15-37) H 04/16/22 04:25 ALT 57 Units/L (12-78) 04/16/22 04:25 Alkaline Phosphatase 185 Units/L (46-116) H 04/16/22 04:25 Total Protein 6.9 g/dL (6.4-8.2) 04/16/22 04:25 Albumin 2.9 g/dL (3.4-5.0) L 04/16/22 04:25 Globulin 4.0 g/dL (2.5-4.5) 04/16/22 04:25 Albumin/Globulin Ratio 0.7 Ratio (1.1-2.1) L 04/16/22 04:25 SARS-CoV-2 (PCR) Negative (NEGATIVE) 04/15/22 08:02 Tissue Pathology To follow 04/15/22 08:28 - Assessment and Plan 2: Lt hip ulcer . s/p excisional debridement . A Fib with rapid VR ( controlled with medications ). to discharge and will follow as OP .. change dressing and packing every other day .. f/u in 10 days ..
[2022-04-16] MEDS ORDERED: XOPENEX 1.25 MG/3 ML NEBULE NEB SCH (14:00)
[2022-04-16 14:33] VITALS: BP 159/72
[2022-04-16] MEDS ORDERED: SNACK - Diabetic Appropriate PO SCH (20:00)
== END 2022-04-16 14:00 ==
LOC: ICU 06:58 → SURG1 06:58
PROVIDERS: ADMIT Internal Medicine; ATTEND Surgery
DX: L89.223 Pressure ulcer of left hip, stage 3; I48.91 Unspecified atrial fibrillation; R00.0 Tachycardia, unspecified; R26.89 Other abnormalities of gait and mobility; E11.622 Type 2 diabetes mellitus with other skin ulcer; E11.65 Type 2 diabetes mellitus with hyperglycemia; Z79.899 Other long term (current) drug therapy; C44.799 Other specified malignant neoplasm of skin of left lower limb, including hip; Z20.822 Contact with and (suspected) exposure to COVID-19

== ENCOUNTER 2022-09-25 10:41 | Inpatient (IN) ==
[2022-09-25] MEDS ORDERED: NS 500 ML IV 500 ML IV ONE ×2 (10:55→10:57)
--- NOTE | 2022-09-25 10:55 | DR.AMS ---
HPI Time Seen Time Seen by Provider: 09/25/22 10:54 Complaint Cheif Complaint Doctors Comments: 86 y/o female sent from [place]. Reportedly had an elevated BP last pm on routine blood draw. Was somnolent with low BP this AM, sent over for evaluation. Pt is alert, in no distress. She is without complaints. No report of pain, URI symptoms, bowel or bladder issues. Was a little nauseous earlier. Reviewed Nurses Notes Reviewed: Yes Source History Provided: Patient and Care Home PMH PMH Past Medical History: Anemia, Asthma, CHF, CVA, Depression, Diabetes, Dyslipidemia, GERD, Hypertension and Hypothyroidism Past Surgical History: Yes Surgical History: Cholecystectomy Family History Family Medical History: Diabetes Mellitus, [place], Heart Failure and Hypertension Social History Do you use any recreational Drugs:: No ROS Review of Systems Constitutional: No Symptoms Reported Eyes: No Symptoms Reported ENTM: No Symptoms Reported Respiratoy: No Symptoms Reported Cardiovascular: No Symptoms Reported Gastrointestinal/Abdominal: No Symptoms Reported Genitourinary: No Symptoms Reported Neurological: No Symptoms Reported Musculoskeletal: No Symptoms Reported Integumentary: No Symptoms Reported Psychiatric: No Symptoms Reported All Other Systems: Reviewed and Negative PE Vitals Vital Signs: Temp Pulse Resp BP BP BP Pulse Ox 09/25/22 13:00 121 H 26 H 98 09/25/22 12:45 119 H 12 99 09/25/22 12:32 119 H 24 100 09/25/22 12:38 99 F 16 102/73 99 09/25/22 10:54 99.0 F 100 H 17 92/53 98 09/08/22 02:46 161/76 04/16/22 09:27 04/16/22 05:00 143/75 O2 Del Method FiO2 09/25/22 13:00 09/25/22 12:45 09/25/22 12:32 09/25/22 12:38 Room Air 09/25/22 10:54 Nasal Cannula 09/08/22 02:46 04/16/22 09:27 28 04/16/22 05:00 General General Appearance: Alert and In No Apparent Distress Eyes Eye exam: PERRL and EOMI ENT ENT Exam: Normal Exam, Normal Oropharynx and Mucous Membranes Moist Neck Neck Exam: Normal Inspection and Full ROM Respiratory Respiratory Exam: Normal Lung Sounds Bilat; negative Accessory Muscle Use or Respiratory Distress Cardiovascular Cardiovascular Exam: Regular Rate, Normal Rhythm and Normal Heart Sounds Abdominal Exam Abdominal Exam: Normal Inspection, Normal Bowel Sounds and Soft; negative Tenderness Extremities Extremities Exam: Other (+ wounds of both shins); negative Edema Neurological Neurological Exam: Alert, Oriented X3 and CN II-XII Intact; negative Motor Sensory Deficit Skin Skin Exam: Warm and Dry COURSE Treatment Treatment: 86 y/o female sent by [place] for evaluation. Currently looks good. BP low on arrival, removed a NTG patch (was placed 0730 this am). PE benign. Will repeat labs, give IV fluids. 1314 -pt remains stable. BP better with IV fluids, removal of NTG. U/a obtained via Roberts, + TNTC WBCs/RBCs in the urine. Treated with IV Rocephin. Labs show WBC elevated at 20K, K+ 6/0, Cr and BUN elevated, c/w acute non traumatic renal injury. Recommend admission, discussed with Dr Khan (covering) , accepts the admission. [facility] Labs Reviewed Laboratory Results Reviewed?: Yes Result Diagrams: 09/25/22 12:09/25/22 12: Laboratory: WBC 20.0 X10^3/uL (3.6-10.0) H 09/25/22 12: RBC 3.37 X10^6/uL (3.5-5.4) L 09/25/22 12: Hgb 10.5 g/dL (12.0-16.0) L 09/25/22 12: Hct 31.9 % (36.0-47.0) L 09/25/22 12: MCV 94.7 fL (80.0-100.0) 09/25/22 12: MCH 31.1 pg (27.0-34.0) 09/25/22 12: MCHC 32.8 g/dL (33.0-35.0) L 09/25/22 12: RDW 15.6 % (11.6-16.5) 09/25/22 12: Plt Count 249 X10^3/uL (150.0-450.0) 09/25/22 12: MPV 7.1 fL (7.4-11.0) L 09/25/22 12: Neut % (Auto) 89.1 % (42.0-75.0) H 09/25/22 12: Lymph % (Auto) 1.8 % (21.0-51.0) L 09/25/22 12:26 [place] % (Auto) 8.8 % (0.0-13.0) 09/25/22 12: Eos % (Auto) 0.2 % (0.9-2.9) L 09/25/22 12: Baso % (Auto) 0.1 % (0.2-1.0) L 09/25/22 12: Neut # (Auto) 17.8 x10^3/uL (2.2-4.8) H 09/25/22 12: Lymph # (Auto) 0.4 X10^3/uL (1.3-2.9) L 09/25/22 12: [place] # (Auto) 1.8 x10^3/uL (0.3-0.8) H 09/25/22 12: Eos # (Auto) 0.0 x10^3/uL (0.0-0.2) 09/25/22 12: Baso # (Auto) 0.0 X10^3/uL (0.0-0.1) 09/25/22 12: Absolute Nucleated RBC 0.0 /100WBC 09/25/22 12: Sodium 128 mmol/L (136-145) L 09/25/22 12:26 Corrected Sodium 130 mmol/L (136-145) L 09/25/22 12: Potassium 6.0 mmol/L (3.5-5.1) H* 09/25/22 12: Chloride 98 mmol/L (98-107) 09/25/22 12: Carbon Dioxide 22.4 mmol/L (21-32) 09/25/22 12: BUN 81 mg/dL (7-18) H 09/25/22 12:26 Creatinine 3.36 mg/dL (0.55-1.02) H 09/25/22 12:26 Est GFR (MDRD) Af Amer 17 (>60) L 09/25/22 12:26 Est GFR (MDRD) Non-Af 14 (>60) L 09/25/22 12:26 Glucose 184 mg/dL (65-99) H 09/25/22 12:26 Calcium 8.2 mg/dL (8.5-10.1) L 09/25/22 12:26 Corrected Calcium 9.7 mg/dL (8.5-10.1) 09/25/22 12: Total Bilirubin 0.80 mg/dL (0.2-1.0) 09/25/22 12:26 AST 20 Units/L (15-37) 09/25/22 12:26 ALT 15 Units/L (12-78) 09/25/22 12:26 Alkaline Phosphatase 126 Units/L (46-116) H 09/25/22 12:26 Total Protein 6.0 g/dL (6.4-8.2) L 09/25/22 12:26 Albumin 2.1 g/dL (3.4-5.0) L 09/25/22 12:26 Globulin 3.9 g/dL (2.5-4.5) 09/25/22 12: Albumin/Globulin Ratio 0.5 Ratio (1.1-2.1) L 09/25/22 12:26 Specimen Type Catherized urine 09/25/22 11:40 Urine Color Estelita (YELLOW) 09/25/22 11:40 Urine Appearance Cloudy (CLEAR) 09/25/22 11:40 Urine pH 6.5 (5.0 - 8.0) 09/25/22 11:40 Ur Specific [place] 1.015 (1.000-1.030) 09/25/22 11:40 Urine Protein 2+ (NEGATIVE) 09/25/22 11:40 Urine Glucose (UA) Negative (NEGATIVE) 09/25/22 11:40 Urine Ketones 1+ (NEGATIVE) 09/25/22 11:40 Urine Blood 3+ (NEGATIVE) 09/25/22 11:40 Urine Nitrite Positive (NEGATIVE) 09/25/22 11:40 Urine Bilirubin 2+ (NEGATIVE) 09/25/22 11:40 Urine Urobilinogen 2+ (NORMAL) 09/25/22 11:40 Ur Leukocyte Esterase 3+ (NEGATIVE) 09/25/22 11:40 Urine RBC Tntc /HPF (0-3) A 09/25/22 11:40 Urine WBC Tntc /HPF (0-5) A 09/25/22 11:40 Ur Squamous Epith Cells Few /HPF (NEGATIVE) 09/25/22 11:40 Urine Bacteria 4+ /HPF (NEGATIVE) 09/25/22 11:40 Ur Culture Indicated? Yes/culture set up 09/25/22 11:40 Opioid Opioid Risk Tool Age (Marcos box if 16-45): No History of Preadolescent Sexual Abuse: No Total: 0 Total Score Risk Category: Low Risk Copyright: Tadeo CHAHAL predicting aberrant behaviors Discharge Plan Diagnosis Discharge Problem: Acute UTI, Acute kidney injury (nontraumatic) Discharge Plan Patient Disposition: 09 ADMITTED INPATIENT Condition: Stable Orders to Discharge Patient Discharge Orders: Transfer (Routine); Ordered 09/25/22 Ordered By: Maco Kim
[2022-09-25] MEDS ORDERED: ROCEPHIN VIAL 1 GRAM 1 G in NS 100 ML IV 100 ML IV ONE (12:17)
[2022-09-25] MEDS ORDERED: ROCEPHIN VIAL 1 GRAM ONE (12:18)
[2022-09-25 12:19] LABS: BILIRUBIN,URINE 2+ (NEGATIVE); BLOOD/HEMOGLOBIN,URINE 3+ (NEGATIVE); GLUCOSE, URINE NEGATIVE (NEGATIVE); KETONES,URINE 1+ (NEGATIVE); LEUKOCYTE ESTERASE ,URINE 3+ (NEGATIVE); NITRITES,URINE POSITIVE (NEGATIVE); PH,URINE 6.5 (5.0 - 8.0); PROTEIN,URINE 2+ (NEGATIVE); UROBILINOGEN,URINE 2+ (NORMAL)
[2022-09-25] MEDS ORDERED: NS 100 ML IV 100 ML ONE (12:19)
[2022-09-25 12:33] LABS: APPEARANCE,URINE CLOUDY (CLEAR); COLOR,URINE AMBER (YELLOW)
[2022-09-25 12:34] LABS: BASOPHILS % (AUTO) 0.1 % (0.2-1.0); EOSINOPHILS % (AUTO) 0.2 % (0.9-2.9); HEMATOCRIT 31.9 % (36.0-47.0); HEMOGLOBIN 10.5 g/dL (12.0-16.0); LYMPHOCYTES # (AUTO) 0.4 X10^3/uL (1.3-2.9); LYMPHOCYTES % (AUTO) 1.8 % (21.0-51.0); MEAN CORPUSCULAR HEMOGLOBIN 31.1 pg (27.0-34.0); MEAN CORPUSCULAR HGB CONC 32.8 g/dL (33.0-35.0); MEAN CORPUSCULAR VOLUME 94.7 fL (80.0-100.0); MEAN PLATELET VOLUME 7.1 fL (7.4-11.0); MONOCYTES # (AUTO) 1.8 x10^3/uL (0.3-0.8); MONOCYTES % (AUTO) 8.8 % (0.0-13.0); NEUTROPHILS # (AUTO) 17.8 x10^3/uL (2.2-4.8); NEUTROPHILS % (AUTO) 89.1 % (42.0-75.0); RED BLOOD COUNT 3.37 X10^6/uL (3.5-5.4); RED CELL DISTRIBUTION WIDTH 15.6 % (11.6-16.5)
[2022-09-25 12:34] LABS: BACTERIA,URINE 4+ /HPF (NEGATIVE); RBC,URINE TNTC /HPF (0-3); SQUAMOUS EPITHELIAL CELL,UR FEW /HPF (NEGATIVE)
[2022-09-25 12:48] LABS: ALBUMIN 2.1 g/dL (3.4-5.0); CALCIUM 8.2 mg/dL (8.5-10.1); CARBON DIOXIDE 22.4 mmol/L (21-32); COR CA(FOR HYPOALB) 9.7 mg/dL (8.5-10.1); CREATININE 3.36 mg/dL (0.55-1.02)
[2022-09-25] MEDS ORDERED: NS 1,000 ML IV 1,000 ML ONE (13:13)
[2022-09-25] MEDS ORDERED: NS 1,000 ML IV 1,000 ML IV SCH (14:00)
[2022-09-25] MEDS: ROCEPHIN VIAL 1 GRAM 1 G in NS 100 ML IV 100 ML IV SCH (14:09)
[2022-09-25] MEDS: NS 1,000 ML IV 1,000 ML IV SCH ×2 (14:19→23:54)
[2022-09-25] MEDS ORDERED: XOPENEX 1.25 MG/3 ML NEBULE NEB ONE (16:42)
[2022-09-25] MEDS: TOPROL XL PO SCH ×2 (17:13→21:13)
[2022-09-25] MEDS: NovoLIN R (or HumuLIN R) SUBCUT PRN ×2 (17:14→21:13)
[2022-09-25] MEDS: XOPENEX 1.25 MG/3 ML NEBULE NEB SCH ×2 (17:40→21:00)
[2022-09-25] MEDS: SNACK - Diabetic Appropriate PO SCH (20:00)
[2022-09-25] MEDS ORDERED: SNACK - Diabetic Appropriate PO SCH (20:00)
[2022-09-25] MEDS: PULMICORT NEB TX 0.5 MG NEB SCH (21:00)
[2022-09-25] MEDS: COLACE CAP 100 MG PO SCH (21:12)
[2022-09-25] MEDS: ELIQUIS PO SCH (21:12)
[2022-09-25] MEDS: NEURONTIN CAP 300 MG PO SCH (21:12)
[2022-09-25] MEDS: XALATAN OP SCH (21:17)
[2022-09-25] MEDS: APRESOLINE TAB 25 MG PO SCH (21:17)
[2022-09-26] MEDS: NS 1,000 ML IV 1,000 ML IV SCH ×3 (03:20→17:08)
[2022-09-26 05:13] LABS: BASOPHILS % (AUTO) 0.2 % (0.2-1.0); EOSINOPHILS # (AUTO) 0.2 x10^3/uL (0.0-0.2); HEMATOCRIT 30.5 % (36.0-47.0); HEMOGLOBIN 10.1 g/dL (12.0-16.0); LYMPHOCYTES # (AUTO) 0.6 X10^3/uL (1.3-2.9); LYMPHOCYTES % (AUTO) 3.7 % (21.0-51.0); MEAN CORPUSCULAR HEMOGLOBIN 31.3 pg (27.0-34.0); MEAN CORPUSCULAR HGB CONC 33.1 g/dL (33.0-35.0); MEAN CORPUSCULAR VOLUME 94.4 fL (80.0-100.0); MEAN PLATELET VOLUME 8.8 fL (7.4-11.0); MONOCYTES # (AUTO) 1.7 x10^3/uL (0.3-0.8); MONOCYTES % (AUTO) 10.8 % (0.0-13.0); NEUTROPHILS # (AUTO) 13.3 x10^3/uL (2.2-4.8); NEUTROPHILS % (AUTO) 84.3 % (42.0-75.0); RED BLOOD COUNT 3.23 X10^6/uL (3.5-5.4); RED CELL DISTRIBUTION WIDTH 15.6 % (11.6-16.5); WHITE BLOOD COUNT 15.7 X10^3/uL (3.6-10.0)
[2022-09-26 05:20] LABS: ALBUMIN 1.9 g/dL (3.4-5.0); CALCIUM 8.2 mg/dL (8.5-10.1); CARBON DIOXIDE 21.8 mmol/L (21-32); COR CA(FOR HYPOALB) 9.9 mg/dL (8.5-10.1); CREATININE 2.29 mg/dL (0.55-1.02); TOTAL PROTEIN 5.9 g/dL (6.4-8.2)
[2022-09-26] MEDS: NovoLIN R (or HumuLIN R) SUBCUT PRN ×4 (05:52→21:38)
[2022-09-26] MEDS: APRESOLINE TAB 25 MG PO SCH ×3 (05:52→22:41)
[2022-09-26 06:01] LABS: PLATELET MORPHOLOGY COMMENT NORMAL (NORMAL)
[2022-09-26] MEDS: PULMICORT NEB TX 0.5 MG NEB SCH ×2 (08:44→21:14)
[2022-09-26] MEDS: XOPENEX 1.25 MG/3 ML NEBULE NEB SCH ×4 (08:44→21:14)
[2022-09-26] MEDS: ROCEPHIN VIAL 1 GRAM 1 G in NS 100 ML IV 100 ML IV SCH (09:36)
[2022-09-26] MEDS: COLACE CAP 100 MG PO SCH ×2 (09:37→21:15)
[2022-09-26] MEDS: ELIQUIS PO SCH ×2 (09:37→21:15)
[2022-09-26] MEDS: PROTONIX TAB 40 MG PO SCH ×2 (09:37→21:17)
[2022-09-26] MEDS: NEURONTIN CAP 300 MG PO SCH ×2 (09:37→21:16)
[2022-09-26] MEDS: TOPROL XL PO SCH ×2 (09:37→21:17)
[2022-09-26] MEDS: HEMOCYTE-PLUS PO SCH (09:37)
[2022-09-26] MEDS: SYNTHROID 75 mcg TAB PO SCH (09:41)
[2022-09-26] MEDS: XALATAN OP SCH ×2 (09:41→21:15)
[2022-09-26] MEDS: LEVEMIR SC SCH (09:43)
[2022-09-26 10:18] VITALS: BMI 26.4
--- NOTE | 2022-09-26 12:10 | DR.H&P ---
H&P History & Physical for Day of: H&P Date: 09/25/22 Chief Complaint Chief Complaint: Hypotension Allergies Allergies Allergy/AdvReac Type Severity Reaction Status Date / Time tuberculin,PPD,multi-puncture Allergy Verified 03/10/20 13:33 History of Present Illness History of Present Illness: This is a 86-year-old white female who is a patient of Dr. Phillips who I was called about yesterday from [facility]. I was informed she had become hypotensive and she was hyperkalemic so I had her sent to the emergency department for further work-up. They found that she was very dehydrated and had a very bad urinary tract infection and noted her to still be hyperkalemic. Her potassium was 6.0 and she had 2 numbers to count WBCs in the urine. Her urine was very dark in appearance like a dark tea color. She was speaking and conversing and answer questions appropriately. Because of this I elected to go ahead and admit her to the medical floor for IV hydration and IV antibiotics for her UTI. Urine culture is done and is pending at this time. Past Medical History Past Medical History: Anemia, Asthma, CHF, CVA, Depression, Diabetes, Dyslipidemia, GERD, Hypertension and Hypothyroidism Additional Medical History: DVT, Sleep Apnea, Depression, Chronic Sinusitis, Allergic Rhinitis, Constipation, Edema, UTI's, Pneumonia, Arthritis, Cataracts, Osteoporosis, Glaucoma, Ear Infections, Gastrointestinal Ulcer, Cardiac Arrhythmia, Muscle Weakness, Osteoporsis, Restless leg syndrome Past Surgical History Surgical History: Cholecystectomy Additional Surgical History: Sinus surgery Family History Family Medical History: Diabetes Mellitus, [place], Heart Failure and Hypertension Social History Does patient currently use any type of tobacco product: No Have you used tobacco products in the last 12 months: No Type of Tobacco Use: None Does any household member use tobacco: No Alcohol Use: None Drug Use: None Medications Home Medications: tuberculin,PPD,multi-puncture Allergy (Verified 03/10/20 13:33) Labs Result Diagrams: 09/26/22 04:24 09/26/22 04:24 Labs: 09/25/22 14:04 Leg - Right Wound Culture - Preliminary 09/25/22 14:04 Buttock Wound Culture - Preliminary 09/25/22 11:40 Urine,Catheterized Urine Culture - Preliminary Laboratory WBC 15.7 X10^3/uL (3.6-10.0) H 12/24/22 04:24 RBC 3.23 X10^6/uL (3.5-5.4) L 09/26/22 04:24 Hgb 10.1 g/dL (12.0-16.0) L 09/26/22 04:24 Hct 30.5 % (36.0-47.0) L 09/26/22 04:24 MCV 94.4 fL (80.0-100.0) 09/26/22 04:24 MCH 31.3 pg (27.0-34.0) 09/26/22 04:24 MCHC 33.1 g/dL (33.0-35.0) 09/26/22 04:24 RDW 15.6 % (11.6-16.5) 09/26/22 04:24 Plt Count 225 X10^3/uL (150.0-450.0) 09/26/22 04:24 Plt Count Comment Adequate (ADEQUATE) 09/26/22 04:24 MPV 8.8 fL (7.4-11.0) 09/26/22 04:24 Neut % (Auto) 84.3 % (42.0-75.0) H 09/26/22 04:24 Lymph % (Auto) 3.7 % (21.0-51.0) L 09/26/22 04:24 [place] % (Auto) 10.8 % (0.0-13.0) 09/26/22 04:24 Eos % (Auto) 1.0 % (0.9-2.9) 09/26/22 04:24 Baso % (Auto) 0.2 % (0.2-1.0) 09/26/22 04:24 Neut # (Auto) 13.3 x10^3/uL (2.2-4.8) H 09/26/22 04:24 Lymph # (Auto) 0.6 X10^3/uL (1.3-2.9) L 09/26/22 04:24 [place] # (Auto) 1.7 x10^3/uL (0.3-0.8) H 09/26/22 04:24 Eos # (Auto) 0.2 x10^3/uL (0.0-0.2) 09/26/22 04:24 Baso # (Auto) 0.0 X10^3/uL (0.0-0.1) 09/26/22 04:24 Absolute Nucleated RBC 0.3 /100WBC 09/26/22 04:24 Plt Morphology Comment Normal (NORMAL) 09/26/22 04:24 RBC Morphology Normal (NORMAL) 09/26/22 04:24 Sodium 133 mmol/L (136-145) L 09/26/22 04:24 Corrected Sodium 136 mmol/L (136-145) 09/26/22 04:24 Potassium 5.3 mmol/L (3.5-5.1) H 09/26/22 04:24 Chloride 101 mmol/L (98-107) 09/26/22 04:24 Carbon Dioxide 21.8 mmol/L (21-32) 09/26/22 04:24 BUN 69 mg/dL (7-18) H 09/26/22 04:24 Creatinine 2.29 mg/dL (0.55-1.02) H 09/26/22 04:24 Est GFR (MDRD) Af Amer 26 (>60) L 09/26/22 04:24 Est GFR (MDRD) Non-Af 22 (>60) L 09/26/22 04:24 Glucose 219 mg/dL (65-99) H 09/26/22 04:24 POC Glucose (mg/dL) 294 mg/dL (65-99) H 09/26/22 11:48 Calcium 8.2 mg/dL (8.5-10.1) L 09/26/22 04:24 Corrected Calcium 9.9 mg/dL (8.5-10.1) 09/26/22 04:24 Total Bilirubin 0.50 mg/dL (0.2-1.0) 09/26/22 04:24 AST 18 Units/L (15-37) 09/26/22 04:24 ALT 15 Units/L (12-78) 09/26/22 04:24 Alkaline Phosphatase 143 Units/L (46-116) H 09/26/22 04:24 Total Protein 5.9 g/dL (6.4-8.2) L 09/26/22 04:24 Albumin 1.9 g/dL (3.4-5.0) L 09/26/22 04:24 Globulin 4.0 g/dL (2.5-4.5) 09/26/22 04:24 Albumin/Globulin Ratio 0.5 Ratio (1.1-2.1) L 09/26/22 04:24 Specimen Type Catherized urine 09/25/22 11:40 Urine Color [place] (YELLOW) 09/25/22 11:40 Urine Appearance Cloudy (CLEAR) 09/25/22 11:40 Urine pH 6.5 (5.0 - 8.0) 09/25/22 11:40 Ur Specific [place] 1.015 (1.000-1.030) 09/25/22 11:40 Urine Protein 2+ (NEGATIVE) 09/25/22 11:40 Urine Glucose (UA) Negative (NEGATIVE) 09/25/22 11:40 Urine Ketones 1+ (NEGATIVE) 09/25/22 11:40 Urine Blood 3+ (NEGATIVE) 09/25/22 11:40 Urine Nitrite Positive (NEGATIVE) 09/25/22 11:40 Urine Bilirubin 2+ (NEGATIVE) 09/25/22 11:40 Urine Urobilinogen 2+ (NORMAL) 09/25/22 11:40 Ur Leukocyte Esterase 3+ (NEGATIVE) 09/25/22 11:40 Urine RBC Tntc /HPF (0-3) A 09/25/22 11:40 Urine WBC Tntc /HPF (0-5) A 09/25/22 11:40 Ur Squamous Epith Cells Few /HPF (NEGATIVE) 09/25/22 11:40 Urine Bacteria 4+ /HPF (NEGATIVE) 09/25/22 11:40 Ur Culture Indicated? Yes/culture set up 09/25/22 11:40 Review of Systems Constitutional: Weakness Eyes: No Symptoms Reported ENT: No Symptoms Reported Respiratory: No Symptoms Reported Cardiovascular: No Symptoms Reported Gastrointestinal: Nausea Genitourinary: Dysuria Musculoskeletal: No Symptoms Reported Skin: No Symptoms Reported Neurological: No Symptoms Reported Physical Exam Vital Signs: Temperature 97.7 F Pulse Rate [Left Radial] 110 Pulse Rate 87 Respiratory Rate 18 Blood Pressure [Left Arm] 105/57 Blood Pressure [Right Arm] 161/76 Blood Pressure 92/53 O2 Sat by Pulse Oximetry 97 Oriented: Normal, Time, Person and Place 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 Hold patient's triamterene/HCTZ. IV hydration (2) Acute UTI: Status: Acute Plan: IV Rocephin (3) Acute renal failure (ARF): Status: Acute Plan: IV hydration for dehydration (4) Hypotension: Qualifiers: Hypotension type: unspecified hypotension type Qualified Code(s): I95.9 - Hypotension, unspecified Status: Acute Plan: IV hydration in the ER physician removed the patient's nitroglycerin patch. Monitor for improvement of blood pressure. (5) Atrial fibrillation: Status: Chronic Plan: Continue patient's metoprolol (6) Diabetes mellitus, type 2: Qualifiers: Diabetes mellitus complication status: without complication Diabetes mellitus [facility] insulin use: with [facility] use Qualified Code(s): E11.9 - Type 2 diabetes mellitus without complications; Z79.4 - FPC (current) use of insulin Status: Chronic Plan: Slight scale regular insulin protocol (7) Depression: Qualifiers: Depression Type: major depressive disorder Major depression recurrence: single episode Active/Remission status: in full remission Qualified Code(s): F32.5 - Major depressive disorder, single episode, in full remission Status: Chronic Plan: Resume patient's depression medications (8) Hypothyroidism: Qualifiers: Hypothyroidism type: acquired Qualified Code(s): E03.9 - Hypoth yroidism, unspecified Status: Chronic Plan: Resume patient's levothyroxine (9) CHF (congestive heart failure): Qualifiers: Heart failure type: unspecified Heart failure chronicity: acute on chronic Qualified Code(s): I50.9 - Heart failure, unspecified Status: Chronic Plan: Monitor daily BMPs
--- NOTE | 2022-09-26 12:12 | PCM.PROG ---
Progress Note Progress Note for Day of Date of Exam: 09/26/22 Subjective Subjective: Patient is alert and awake this morning. Her daughter is with her at her bedside. She did well yesterday afternoon and last night after admission from the emergency department. She has no new complaints this morning. Her blood pressure is noted to have come up and normalized since admission. Her potassium level is much improved at 5.3 this morning down from the low sixes. Her hyponatremia is also resolved this morning as well. Creatinine level is much improved at 2.29 her leukocytosis is also improved since admission. Continue current treatment. Follow-up with urine cultures when available. Past Medical Family Social History Allergies: Allergies tuberculin,PPD,multi-puncture Allergy (Verified 03/10/20 13:33) Review of Systems ROS: No change since H&P Vital Signs and I&O's Vital Signs: Temperature 97.7 F Pulse Rate [Left Radial] 110 Pulse Rate 87 Respiratory Rate 18 Blood Pressure [Left Arm] 105/57 Blood Pressure [Right Arm] 161/76 Blood Pressure 92/53 O2 Sat by Pulse Oximetry 97 Intake and Output: Intake & Output 09/24/22 09/25/22 09/26/22 09/27/22 11:59 11:59 11:59 11:59 Intake Total 3010 / 3010 Output Total 1450 / 1450 Balance 1560 / 1560 Physical Exam Oriented: Normal, Time, Person and Place 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) Ear: Normal Nose: Normal Throat: Normal Respiratory: Normal Cardiovascular: Normal Auscultation: Bowel Sounds: Normal Tenderness: Normal Skin: Decreased Turgur Musculoskeletal: Normal Psychiatric: Normal Mood Description: Calm Affect: Normal Speech Pattern: Clear and Appropriate Laboratory and Diagnostics Result Diagrams: 09/26/22 04:24 09/26/22 04:24 Labs: 09/25/22 14:04 Leg - Right Wound Culture - Preliminary 09/25/22 14:04 Buttock Wound Culture - Preliminary 09/25/22 11:40 Urine,Catheterized Urine Culture - Preliminary Laboratory WBC 15.7 X10^3/uL (3.6-10.0) H 09/26/22 04:24 RBC 3.23 X10^6/uL (3.5-5.4) L 09/26/22 04:24 Hgb 10.1 g/dL (12.0-16.0) L 09/26/22 04:24 Hct 30.5 % (36.0-47.0) L 09/26/22 04:24 MCV 94.4 fL (80.0-100.0) 09/26/22 04:24 MCH 31.3 pg (27.0-34.0) 09/26/22 04:24 MCHC 33.1 g/dL (33.0-35.0) 09/26/22 04:24 RDW 15.6 % (11.6-16.5) 09/26/22 04:24 Plt Count 225 X10^3/uL (150.0-450.0) 09/26/22 04:24 Plt Count Comment Adequate (ADEQUATE) 09/26/22 04:24 MPV 8.8 fL (7.4-11.0) 09/26/22 04:24 Neut % (Auto) 84.3 % (42.0-75.0) H 09/26/22 04:24 Lymph % (Auto) 3.7 % (21.0-51.0) L 09/26/22 04:24 [place] % (Auto) 10.8 % (0.0-13.0) 09/26/22 04:24 Eos % (Auto) 1.0 % (0.9-2.9) 09/26/22 04:24 Baso % (Auto) 0.2 % (0.2-1.0) 09/26/22 04:24 Neut # (Auto) 13.3 x10^3/uL (2.2-4.8) H 09/26/22 04:24 Lymph # (Auto) 0.6 X10^3/uL (1.3-2.9) L 09/26/22 04:24 [place] # (Auto) 1.7 x10^3/uL (0.3-0.8) H 09/26/22 04:24 Eos # (Auto) 0.2 x10^3/uL (0.0-0.2) 09/26/22 04:24 Baso # (Auto) 0.0 X10^3/uL (0.0-0.1) 09/26/22 04:24 Absolute Nucleated RBC 0.3 /100WBC 09/26/22 04:24 Plt Morphology Comment Normal (NORMAL) 09/26/22 04:24 RBC Morphology Normal (NORMAL) 09/26/22 04:24 Sodium 133 mmol/L (136-145) L 09/26/22 04:24 Corrected Sodium 136 mmol/L (136-145) 09/26/22 04:24 Potassium 5.3 mmol/L (3.5-5.1) H 09/26/22 04:24 Chloride 101 mmol/L (98-107) 09/26/22 04:24 Carbon Dioxide 21.8 mmol/L (21-32) 09/26/22 04:24 BUN 69 mg/dL (7-18) H 09/26/22 04:24 Creatinine 2.29 mg/dL (0.55-1.02) H 09/26/22 04:24 Est GFR (MDRD) Af Amer 26 (>60) L 09/26/22 04:24 Est GFR (MDRD) Non-Af 22 (>60) L 09/26/22 04:24 Glucose 219 mg/dL (65-99) H 09/26/22 04:24 POC Glucose (mg/dL) 294 mg/dL (65-99) H 09/26/22 11:48 Calcium 8.2 mg/dL (8.5-10.1) L 09/26/22 04:24 Corrected Calcium 9.9 mg/dL (8.5-10.1) 09/26/22 04:24 Total Bilirubin 0.50 mg/dL (0.2-1.0) 09/26/22 04:24 AST 18 Units/L (15-37) 09/26/22 04:24 ALT 15 Units/L (12-78) 09/26/22 04:24 Alkaline Phosphatase 143 Units/L (46-116) H 09/26/22 04:24 Total Protein 5.9 g/dL (6.4-8.2) L 09/26/22 04:24 Albumin 1.9 g/dL (3.4-5.0) L 09/26/22 04:24 Globulin 4.0 g/dL (2.5-4.5) 09/26/22 04:24 Albumin/Globulin Ratio 0.5 Ratio (1.1-2.1) L 09/26/22 04:24 Specimen Type Catherized urine 09/25/22 11:40 Urine Color Estelita (YELLOW) 09/25/22 11:40 Urine Appearance Cloudy (CLEAR) 09/25/22 11:40 Urine pH 6.5 (5.0 - 8.0) 09/25/22 11:40 Ur Specific [place] 1.015 (1.000-1.030) 09/25/22 11:40 Urine Protein 2+ (NEGATIVE) 09/25/22 11:40 Urine Glucose (UA) Negative (NEGATIVE) 09/25/22 11:40 Urine Ketones 1+ (NEGATIVE) 09/25/22 11:40 Urine Blood 3+ (NEGATIVE) 09/25/22 11:40 Urine Nitrite Positive (NEGATIVE) 09/25/22 11:40 Urine Bilirubin 2+ (NEGATIVE) 09/25/22 11:40 Urine Urobilinogen 2+ (NORMAL) 09/25/22 11:40 Ur Leukocyte Esterase 3+ (NEGATIVE) 09/25/22 11:40 Urine RBC Tntc /HPF (0-3) A 09/25/22 11:40 Urine WBC Tntc /HPF (0-5) A 09/25/22 11:40 Ur Squamous Epith Cells Few /HPF (NEGATIVE) 09/25/22 11:40 Urine Bacteria 4+ /HPF (NEGATIVE) 09/25/22 11:40 Ur Culture Indicated? Yes/culture set up 09/25/22 11:40 Plan (1) Acute hyperkalemia: Status: Acute Narrative Support Text: Improved potassium level. Plan: Recheck potassium in the morning. Hold patient's triamterene/HCTZ. IV hydration (2) Acute UTI: Status: Acute Plan: IV Rocephin (3) Acute renal failure (ARF): Status: Acute Plan: IV hydration for dehydration (4) Hypotension: Status: Acute Qualifiers: Hypotension type: unspecified hypotension type Qualified Code(s): I95.9 - Hypotension, unspecified Plan: IV hydration in the ER physician removed the patient's nitroglycerin patch. Monitor for improvement of blood pressure. 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) use of insulin Plan: Slight scale regular insulin protocol (7) Depression: Status: Chronic Qualifiers: Depression Type: major depressive disorder Major depression recurrence: single episode Active/Remission status: in full remission Qualified Code(s): 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
[2022-09-26] MEDS ORDERED: NEXTERONE IV 150 MG PREMIX* 150 MG/100 ML BAG IV ONE (17:31)
[2022-09-26] MEDS ORDERED: NEXTERONE IV 360 MG PREMIX* 360 MG/200 ML BAG IV PRN (17:32)
--- NOTE | 2022-09-26 17:32 | EKG ---
Test Reason : a-fib with rvr Blood Pressure : */* mmHG Vent. Rate : 127 BPM Atrial Rate : * BPM P-R Int : * ms QRS Dur : 90 ms QT Int : 310 ms P-R-T Axes : * -17 156 degrees QTc Int : 450 ms Atrial fibrillation with rapid ventricular response with premature ventricular or aberrantly conducte d complexes Moderate voltage criteria for LVH, may be normal variant ( R in aVL , [place] product ) Marked ST abnormality, possible lateral subendocardial injury Abnormal ECG No previous ECGs available Confirmed by Daniel Vidal ([id number]) on 09/27/2022 9:24:05 AM Referred By: Confirmed By: Daniel Vidal
[2022-09-26] MEDS ORDERED: DRUG FILTER EXTENSION SET ONE (18:20)
[2022-09-26] MEDS: SNACK - Diabetic Appropriate PO SCH (21:30)
[2022-09-27] MEDS: NS 1,000 ML IV 1,000 ML IV SCH ×3 (02:36→18:19)
[2022-09-27] MEDS: APRESOLINE TAB 25 MG PO SCH ×3 (05:23→21:10)
[2022-09-27 06:43] LABS: BASOPHILS # (AUTO) 0.1 X10^3/uL (0.0-0.1); BASOPHILS % (AUTO) 0.4 % (0.2-1.0); EOSINOPHILS # (AUTO) 0.3 x10^3/uL (0.0-0.2); EOSINOPHILS % (AUTO) 2.2 % (0.9-2.9); HEMATOCRIT 28.7 % (36.0-47.0); HEMOGLOBIN 9.4 g/dL (12.0-16.0); LYMPHOCYTES # (AUTO) 0.6 X10^3/uL (1.3-2.9); LYMPHOCYTES % (AUTO) 4.8 % (21.0-51.0); MEAN CORPUSCULAR HEMOGLOBIN 30.9 pg (27.0-34.0); MEAN CORPUSCULAR HGB CONC 32.9 g/dL (33.0-35.0); MEAN CORPUSCULAR VOLUME 93.9 fL (80.0-100.0); MEAN PLATELET VOLUME 7.5 fL (7.4-11.0); MONOCYTES # (AUTO) 1.1 x10^3/uL (0.3-0.8); NEUTROPHILS # (AUTO) 10.1 x10^3/uL (2.2-4.8); NEUTROPHILS % (AUTO) 83.6 % (42.0-75.0); RED BLOOD COUNT 3.06 X10^6/uL (3.5-5.4); RED CELL DISTRIBUTION WIDTH 15.5 % (11.6-16.5); WHITE BLOOD COUNT 12.1 X10^3/uL (3.6-10.0)
[2022-09-27 06:55] LABS: ALANINE AMINOTRANSFERASE 21 Units/L (12-78); ALBUMIN 1.8 g/dL (3.4-5.0); ALKALINE PHOSPHATASE 206 Units/L (46-116); ASPARTATE AMINO TRANSFERASE 28 Units/L (15-37); BLOOD UREA NITROGEN 37 mg/dL (7-18); CALCIUM 8.3 mg/dL (8.5-10.1); CARBON DIOXIDE 21.5 mmol/L (21-32); CHLORIDE 103 mmol/L (98-107); COR CA(FOR HYPOALB) 10.1 mg/dL (8.5-10.1); SODIUM 134 mmol/L (136-145); TOTAL PROTEIN 5.8 g/dL (6.4-8.2); eGFR NON BLACK RACES 45 (>60)
[2022-09-27] MEDS: PULMICORT NEB TX 0.5 MG NEB SCH ×2 (08:48→21:20)
[2022-09-27] MEDS: XOPENEX 1.25 MG/3 ML NEBULE NEB SCH ×4 (08:48→21:20)
[2022-09-27] MEDS: ELIQUIS PO SCH ×2 (09:18→20:31)
[2022-09-27] MEDS: TOPROL XL PO SCH ×2 (09:18→20:30)
[2022-09-27] MEDS: HEMOCYTE-PLUS PO SCH (09:18)
[2022-09-27] MEDS: NEURONTIN CAP 300 MG PO SCH ×2 (09:18→20:49)
[2022-09-27] MEDS: COLACE CAP 100 MG PO SCH ×2 (09:19→20:30)
[2022-09-27] MEDS: PROTONIX TAB 40 MG PO SCH ×2 (09:19→20:31)
[2022-09-27] MEDS: SYNTHROID 75 mcg TAB PO SCH (09:19)
[2022-09-27] MEDS: LEVEMIR SC SCH (09:19)
[2022-09-27] MEDS: ROCEPHIN VIAL 1 GRAM 1 G in NS 100 ML IV 100 ML IV SCH (09:20)
[2022-09-27] MEDS: XALATAN OP SCH ×2 (09:21→20:49)
[2022-09-27] MEDS ORDERED: CARDIZEM CD 180 MG 24-HR PO ONE (09:25)
[2022-09-27] MEDS: CARDIZEM CD 180 MG 24-HR PO SCH (09:27)
[2022-09-27] MEDS: RIFADIN PO SCH ×2 (12:30→20:31)
[2022-09-27] MEDS: VIBRAMYCIN PO SCH ×2 (12:30→20:32)
--- NOTE | 2022-09-27 12:59 | PCM.PROG ---
Progress Note Progress Note for Day of Date of Exam: 09/27/22 Subjective Subjective: Patient is alert and awake this morning. She had some worsening atrial fibrillation last night. Her heart rate got up to the 130s to 140s. We ordered her some IV amiodarone and shortly thereafter came back down to the lower 100s. Started put in the ICU but we did not have to. This morning she is back on her Cardizem 180 mg daily and we will follow her heart rate make sure it stabilizes to the day. Her hydration status continues to improve. Her right leg wound grew out MRSA and her buttock wound grew out E. coli and Proteus mirabilis in her urine culture grew out 2 different types of E. coli. Patient will be receiving p.o. rifampin and doxycycline for the MRSA from her right leg. The buttock wound is sensitive to the Rocephin that she is on for both the Proteus mirabilis and E. coli. Both knees have ANTON of less than 1. And for the 2 different E. coli that she had in her urine both are sensitive to the Rocephin that she is receiving IV with ANTON's of less than 1 also. Past Medical Family Social History Allergies: Allergies tuberculin,PPD,multi-puncture Allergy (Verified 03/10/20 13:33) Review of Systems ROS: No change since H&P Vital Signs and I&O's Vital Signs: Temperature 97.6 F Pulse Rate [Left Radial] 108 Pulse Rate 101 Respiratory Rate 22 Blood Pressure [Left Arm] 141/68 Blood Pressure [Right Arm] 161/76 Blood Pressure 92/53 O2 Sat by Pulse Oximetry 100 Intake and Output: Intake & Output 09/25/22 09/26/22 09/27/22 09/28/22 11:59 11:59 11:59 11:59 Intake Total 3010 / 3010 2346 / 2346 Output Total 1450 / 1450 2650 / 2650 Balance 1560 / 1560 -304 / -304 Physical Exam Oriented: Normal, Time, Person and Place 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) Ear: Normal Nose: Normal Throat: Normal Respiratory: Normal Cardiovascular: Normal Auscultation: Bowel Sounds: Normal Tenderness: Normal Skin: Decreased Turgur Musculoskeletal: Normal Psychiatric: Normal Mood Description: Calm Affect: Normal Speech Pattern: Clear and Appropriate Laboratory and Diagnostics Result Diagrams: 09/27/22 05:00 09/27/22 05:00 Labs: 09/25/22 14:04 Leg - Right Wound Culture - Preliminary Methicillin Resis Staph Aureus 09/25/22 14:04 Buttock Wound Culture - Final Escherichia Coli Proteus Mirabilis 09/25/22 11:40 Urine,Catheterized Urine Culture - Final Escherichia Coli Escherichia Coli#2 Laboratory WBC 12.1 X10^3/uL (3.6-10.0) H 09/27/22 05:00 RBC 3.06 X10^6/uL (3.5-5.4) L 09/27/22 05:00 Hgb 9.4 g/dL (12.0-16.0) L 09/27/22 05:00 Hct 28.7 % (36.0-47.0) L 09/27/22 05:00 MCV 93.9 fL (80.0-100.0) 09/27/22 05:00 MCH 30.9 pg (27.0-34.0) 09/27/22 05:00 MCHC 32.9 g/dL (33.0-35.0) L 09/27/22 05:00 RDW 15.5 % (11.6-16.5) 09/27/22 05:00 Plt Count 230 X10^3/uL (150.0-450.0) 09/27/22 05:00 Plt Count Comment Adequate (ADEQUATE) 09/26/22 04:24 MPV 7.5 fL (7.4-11.0) 09/27/22 05:00 Neut % (Auto) 83.6 % (42.0-75.0) H 09/27/22 05:00 Lymph % (Auto) 4.8 % (21.0-51.0) L 09/27/22 05:00 [place] % (Auto) 9.0 % (0.0-13.0) 09/27/22 05:00 Eos % (Auto) 2.2 % (0.9-2.9) 09/27/22 05:00 Baso % (Auto) 0.4 % (0.2-1.0) 09/27/22 05:00 Neut # (Auto) 10.1 x10^3/uL (2.2-4.8) H 09/27/22 05:00 Lymph # (Auto) 0.6 X10^3/uL (1.3-2.9) L 09/27/22 05:00 [place] # (Auto) 1.1 x10^3/uL (0.3-0.8) H 09/27/22 05:00 Eos # (Auto) 0.3 x10^3/uL (0.0-0.2) H 09/27/22 05:00 Baso # (Auto) 0.1 X10^3/uL (0.0-0.1) 09/27/22 05:00 Absolute Nucleated RBC 0.0 /100WBC 09/27/22 05:00 Plt Morphology Comment Normal (NORMAL) 09/26/22 04:24 RBC Morphology Normal (NORMAL) 09/26/22 04:24 Sodium 134 mmol/L (136-145) L 09/27/22 05:00 Corrected Sodium TNP 09/27/22 05:00 Potassium 4.2 mmol/L (3.5-5.1) 09/27/22 05:00 Chloride 103 mmol/L (98-107) 09/27/22 05:00 Carbon Dioxide 21.5 mmol/L (21-32) 09/27/22 05:00 BUN 37 mg/dL (7-18) H 09/27/22 05:00 Creatinine 1.20 mg/dL (0.55-1.02) H 09/27/22 05:00 Est GFR (MDRD) Af Amer 55 (>60) L 09/27/22 05:00 Est GFR (MDRD) Non-Af 45 (>60) L 09/27/22 05:00 Glucose 58 mg/dL (65-99) L 09/27/22 05:00 POC Glucose (mg/dL) 260 mg/dL (65-99) H 09/27/22 11:27 Calcium 8.3 mg/dL (8.5-10.1) L 09/27/22 05:00 Corrected Calcium 10.1 mg/dL (8.5-10.1) 09/27/22 05:00 Total Bilirubin 0.60 mg/dL (0.2-1.0) 09/27/22 05:00 AST 28 Units/L (15-37) 09/27/22 05:00 ALT 21 Units/L (12-78) 09/27/22 05:00 Alkaline Phosphatase 206 Units/L (46-116) H 09/27/22 05:00 Total Protein 5.8 g/dL (6.4-8.2) L 09/27/22 05:00 Albumin 1.8 g/dL (3.4-5.0) L 09/27/22 05:00 Globulin 4.0 g/dL (2.5-4.5) 09/27/22 05:00 Albumin/Globulin Ratio 0.5 Ratio (1.1-2.1) L 09/27/22 05:00 Specimen Type Catherized urine 09/25/22 11:40 Urine Color Estelita (YELLOW) 09/25/22 11:40 Urine Appearance Cloudy (CLEAR) 09/25/22 11:40 Urine pH 6.5 (5.0 - 8.0) 09/25/22 11:40 Ur Specific [place] 1.015 (1.000-1.030) 09/25/22 11:40 Urine Protein 2+ (NEGATIVE) 09/25/22 11:40 Urine Glucose (UA) Negative (NEGATIVE) 09/25/22 11:40 Urine Ketones 1+ (NEGATIVE) 09/25/22 11:40 Urine Blood 3+ (NEGATIVE) 09/25/22 11:40 Urine Nitrite Positive (NEGATIVE) 09/25/22 11:40 Urine Bilirubin 2+ (NEGATIVE) 09/25/22 11:40 Urine Urobilinogen 2+ (NORMAL) 09/25/22 11:40 Ur Leukocyte Esterase 3+ (NEGATIVE) 09/25/22 11:40 Urine RBC Tntc /HPF (0-3) A 09/25/22 11:40 Urine WBC Tntc /HPF (0-5) A 09/25/22 11:40 Ur Squamous Epith Cells Few /HPF (NEGATIVE) 09/25/22 11:40 Urine Bacteria 4+ /HPF (NEGATIVE) 09/25/22 11:40 Ur Culture Indicated? Yes/culture set up 09/25/22 11:40 Radiology Reviewed: Yes Plan (1) Acute hyperkalemia: Status: Resolved Plan: Recheck potassium in the morning. Hold patient's triamterene/HCTZ. IV hydration (2) Acute UTI: Status: Acute Narrative Support Text: UTI secondary to 2 different strains of E. coli. Both sensitive to Rocephin with ANTON's of less than 1 each. Plan: IV Rocephin (3) Acute renal failure (ARF): Status: Acute Narrative Support Text: Much improved as her BUN/creatinine is returning to her normal baseline almost. Plan: IV hydration for dehydration (4) Hypotension: Status: Resolved Qualifiers: Hypotension type: unspecified hypotension type Qualified Code(s): I95.9 - Hypotension, unspecified Plan: IV hydration in the ER physician removed the patient's nitroglycerin patch. Monitor for improvement of blood pressure. (5) Atrial fibrillation: Status: Chronic Plan: Continue patient's metoprolol (6) Diabetes mellitus, type 2: Status: Chronic Qualifiers: Diabetes mellitus complication status: without complication Diabetes mellitus extermination inspector insulin use: with residential use Qualified Code(s): E11.9 - Type 2 diabetes mellitus without complications; Z79.4 - detention (current) use of insulin Plan: Slight scale regular insulin protocol (7) Depression: Status: Chronic Qualifiers: Depression Type: major depressive disorder Major depression recurrence: single episode Active/Remission status: in full remission Qualified Code(s): 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 Plan: Continue patient on p.o. rifampin 3 mg twice daily and doxycycline 100 mg p.o. twice daily. (11) Buttock wound: Status: Acute Narrative Support Text: Patient grew out E. coli and Proteus mirabilis both sensitive to Rocephin with ANTON of less than 1 for each organism. Plan: IV Rocephin
[2022-09-27] MEDS: NovoLIN R (or HumuLIN R) SUBCUT PRN ×2 (16:24→20:50)
[2022-09-27] MEDS: SNACK - Diabetic Appropriate PO SCH (20:49)
[2022-09-28 04:52] LABS: BASOPHILS % (AUTO) 0.4 % (0.2-1.0); EOSINOPHILS # (AUTO) 0.2 x10^3/uL (0.0-0.2); EOSINOPHILS % (AUTO) 2.1 % (0.9-2.9); HEMATOCRIT 28.3 % (36.0-47.0); HEMOGLOBIN 9.4 g/dL (12.0-16.0); LYMPHOCYTES # (AUTO) 0.4 X10^3/uL (1.3-2.9); LYMPHOCYTES % (AUTO) 3.9 % (21.0-51.0); MEAN CORPUSCULAR HGB CONC 33.2 g/dL (33.0-35.0); MEAN CORPUSCULAR VOLUME 93.3 fL (80.0-100.0); MEAN PLATELET VOLUME 7.8 fL (7.4-11.0); MONOCYTES # (AUTO) 0.9 x10^3/uL (0.3-0.8); MONOCYTES % (AUTO) 7.7 % (0.0-13.0); NEUTROPHILS # (AUTO) 9.7 x10^3/uL (2.2-4.8); NEUTROPHILS % (AUTO) 85.9 % (42.0-75.0); RED BLOOD COUNT 3.03 X10^6/uL (3.5-5.4); RED CELL DISTRIBUTION WIDTH 15.2 % (11.6-16.5); WHITE BLOOD COUNT 11.2 X10^3/uL (3.6-10.0)
[2022-09-28 05:05] LABS: ALANINE AMINOTRANSFERASE 43 Units/L (12-78); ALBUMIN 1.8 g/dL (3.4-5.0); ALKALINE PHOSPHATASE 298 Units/L (46-116); BLOOD UREA NITROGEN 21 mg/dL (7-18); CALCIUM 8.2 mg/dL (8.5-10.1); CARBON DIOXIDE 25.6 mmol/L (21-32); CHLORIDE 99 mmol/L (98-107); COR NA(FOR HYPERGLY) 135 mmol/L (136-145); CREATININE 1.07 mg/dL (0.55-1.02); SODIUM 133 mmol/L (136-145); eGFR NON BLACK RACES 52 (>60)
[2022-09-28 05:07] LABS: ASPARTATE AMINO TRANSFERASE 49 Units/L (15-37)
[2022-09-28] MEDS: APRESOLINE TAB 25 MG PO SCH ×3 (05:46→21:41)
[2022-09-28] MEDS: PULMICORT NEB TX 0.5 MG NEB SCH ×2 (08:30→21:00)
[2022-09-28] MEDS: XOPENEX 1.25 MG/3 ML NEBULE NEB SCH ×4 (08:30→21:00)
[2022-09-28] MEDS: NS 1,000 ML IV 1,000 ML IV SCH ×3 (09:17→22:12)
[2022-09-28] MEDS: RIFADIN PO SCH ×2 (09:22→21:40)
[2022-09-28] MEDS: PROTONIX TAB 40 MG PO SCH ×2 (09:22→21:40)
[2022-09-28] MEDS: COLACE CAP 100 MG PO SCH ×2 (09:22→21:39)
[2022-09-28] MEDS: SYNTHROID 75 mcg TAB PO SCH (09:22)
[2022-09-28] MEDS: CARDIZEM CD 180 MG 24-HR PO SCH (09:22)
[2022-09-28] MEDS: ELIQUIS PO SCH ×2 (09:22→21:39)
[2022-09-28] MEDS: HEMOCYTE-PLUS PO SCH (09:22)
[2022-09-28] MEDS: VIBRAMYCIN PO SCH ×2 (09:22→21:40)
[2022-09-28] MEDS: TOPROL XL PO SCH ×2 (09:22→21:40)
[2022-09-28] MEDS: NEURONTIN CAP 300 MG PO SCH ×2 (09:22→21:40)
[2022-09-28] MEDS: XALATAN OP SCH ×2 (09:23→21:41)
[2022-09-28] MEDS: ROCEPHIN VIAL 1 GRAM 1 G in NS 100 ML IV 100 ML IV SCH (09:23)
[2022-09-28] MEDS: LEVEMIR SC SCH (09:23)
[2022-09-28] MEDS ORDERED: BETADINE SOLN ONE (09:27)
[2022-09-28] MEDS ORDERED: NS 1,000 ML IV 1,000 ML ONE (09:58)
[2022-09-28] MEDS ORDERED: FENTANYL VIAL INJ 100 mcg ONE (10:20)
[2022-09-28] MEDS ORDERED: DIPRIVAN VIAL 20 ML ONE (10:20)
[2022-09-28] MEDS ORDERED: VERSED ONE (10:20)
[2022-09-28] MEDS ORDERED: POLYMYXIN B SULFATE ONE (10:22)
[2022-09-28] MEDS ORDERED: XYLOCAINE 1 % (PLAIN) ONE (10:29)
--- NOTE | 2022-09-28 14:27 | PCM.PROG ---
Progress Note Progress Note for Day of Date of Exam: 09/28/22 Subjective Subjective: Patient is alert and awake this morning. She is resting comfortably. She does have a sacral decubitus ulcer, the nurses yesterday saw this and inform me. We went ahead and consulted general surgery, Dr. Menjivar and he plans on doing debridement later today. Pulse is noted to be elevated this morning in the [id number] but better than yesterday. Her labs have improved since yesterday. Her leukocytosis has almost resolved and her creatinine is much improved since admission. Continue current treatment. Past Medical Family Social History Allergies: Allergies tuberculin,PPD,multi-puncture Allergy (Verified 03/10/20 13:33) Review of Systems ROS: No change since H&P Vital Signs and I&O's Vital Signs: Temperature 98.7 F Pulse Rate [Left Radial] 122 Pulse Rate 142 Respiratory Rate 22 Blood Pressure [Left Arm] 148/70 Blood Pressure [Right Arm] 161/76 Blood Pressure 129/68 O2 Sat by Pulse Oximetry 98 Intake and Output: Intake & Output 09/26/22 09/27/22 09/28/22 09/29/22 11:59 11:59 11:59 11:59 Intake Total 3010 / 3010 2346 / 2346 2860 / 2860 Output Total 1450 / 1450 2650 / 2650 3650 / 3650 Balance 1560 / 1560 -304 / -304 -790 / -790 Physical Exam Oriented: Normal, Time, Person and Place 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) Ear: Normal Nose: Normal Throat: Normal Respiratory: Normal Cardiovascular: Normal Auscultation: Bowel Sounds: Normal Tenderness: Normal Skin: Decreased Turgur Musculoskeletal: Normal Psychiatric: Normal Mood Description: Calm Affect: Normal Speech Pattern: Clear and Appropriate Laboratory and Diagnostics Result Diagrams: 09/28/22 04:18 09/28/22 04:18 Labs: 09/25/22 14:04 Leg - Right Wound Culture - Final Methicillin Resis Staph Aureus 09/25/22 14:04 Buttock Wound Culture - Final Escherichia Coli Proteus Mirabilis 09/25/22 11:40 Urine,Catheterized Urine Culture - Final Escherichia Coli Escherichia Coli#2 Laboratory WBC 11.2 X10^3/uL (3.6-10.0) H 09/28/22 04:18 RBC 3.03 X10^6/uL (3.5-5.4) L 09/28/22 04:18 Hgb 9.4 g/dL (12.0-16.0) L 09/28/22 04:18 Hct 28.3 % (36.0-47.0) L 09/28/22 04:18 MCV 93.3 fL (80.0-100.0) 09/28/22 04:18 MCH 31.0 pg (27.0-34.0) 09/28/22 04:18 MCHC 33.2 g/dL (33.0-35.0) 09/28/22 04:18 RDW 15.2 % (11.6-16.5) 09/28/22 04:18 Plt Count 239 X10^3/uL (150.0-450.0) 09/28/22 04:18 Plt Count Comment Adequate (ADEQUATE) 09/26/22 04:24 MPV 7.8 fL (7.4-11.0) 09/28/22 04:18 Neut % (Auto) 85.9 % (42.0-75.0) H 09/28/22 04:18 Lymph % (Auto) 3.9 % (21.0-51.0) L 09/28/22 04:18 [place] % (Auto) 7.7 % (0.0-13.0) 09/28/22 04:18 Eos % (Auto) 2.1 % (0.9-2.9) 09/28/22 04:18 Baso % (Auto) 0.4 % (0.2-1.0) 09/28/22 04:18 Neut # (Auto) 9.7 x10^3/uL (2.2-4.8) H 09/28/22 04:18 Lymph # (Auto) 0.4 X10^3/uL (1.3-2.9) L 09/28/22 04:18 [place] # (Auto) 0.9 x10^3/uL (0.3-0.8) H 09/28/22 04:18 Eos # (Auto) 0.2 x10^3/uL (0.0-0.2) 09/28/22 04:18 Baso # (Auto) 0.0 X10^3/uL (0.0-0.1) 09/28/22 04:18 Absolute Nucleated RBC 0.0 /100WBC 09/28/22 04:18 Plt Morphology Comment Normal (NORMAL) 09/26/22 04:24 RBC Morphology Normal (NORMAL) 09/26/22 04:24 Sodium 133 mmol/L (136-145) L 09/28/22 04:18 Corrected Sodium 135 mmol/L (136-145) L 09/28/22 04:18 Potassium 4.8 mmol/L (3.5-5.1) 09/28/22 04:18 Chloride 99 mmol/L (98-107) 09/28/22 04:18 Carbon Dioxide 25.6 mmol/L (21-32) 09/28/22 04:18 BUN 21 mg/dL (7-18) H 09/28/22 04:18 Creatinine 1.07 mg/dL (0.55-1.02) H 09/28/22 04:18 Est GFR (MDRD) Af Amer > 60 (>60) 09/28/22 04:18 Est GFR (MDRD) Non-Af 52 (>60) L 09/28/22 04:18 Glucose 171 mg/dL (65-99) H 09/28/22 04:18 POC Glucose (mg/dL) 194 mg/dL (65-99) H 09/28/22 11:14 Calcium 8.2 mg/dL (8.5-10.1) L 09/28/22 04:18 Corrected Calcium 10.0 mg/dL (8.5-10.1) 09/28/22 04:18 Total Bilirubin 1.40 mg/dL (0.2-1.0) H 09/28/22 04:18 AST 49 Units/L (15-37) H 09/28/22 04:18 ALT 43 Units/L (12-78) 09/28/22 04:18 Alkaline Phosphatase 298 Units/L (46-116) H 09/28/22 04:18 Total Protein 6.0 g/dL (6.4-8.2) L 09/28/22 04:18 Albumin 1.8 g/dL (3.4-5.0) L 09/28/22 04:18 Globulin 4.2 g/dL (2.5-4.5) 09/28/22 04:18 Albumin/Globulin Ratio 0.4 Ratio (1.1-2.1) L 09/28/22 04:18 Specimen Type Catherized urine 09/25/22 11:40 Urine Color [place] (YELLOW) 09/25/22 11:40 Urine Appearance Cloudy (CLEAR) 09/25/22 11:40 Urine pH 6.5 (5.0 - 8.0) 09/25/22 11:40 Ur Specific [place] 1.015 (1.000-1.030) 09/25/22 11:40 Urine Protein 2+ (NEGATIVE) 09/25/22 11:40 Urine Glucose (UA) Negative (NEGATIVE) 09/25/22 11:40 Urine Ketones 1+ (NEGATIVE) 09/25/22 11:40 Urine Blood 3+ (NEGATIVE) 09/25/22 11:40 Urine Nitrite Positive (NEGATIVE) 09/25/22 11:40 Urine Bilirubin 2+ (NEGATIVE) 09/25/22 11:40 Urine Urobilinogen 2+ (NORMAL) 09/25/22 11:40 Ur Leukocyte Esterase 3+ (NEGATIVE) 09/25/22 11:40 Urine RBC Tntc /HPF (0-3) A 09/25/22 11:40 Urine WBC Tntc /HPF (0-5) A 09/25/22 11:40 Ur Squamous Epith Cells Few /HPF (NEGATIVE) 09/25/22 11:40 Urine Bacteria 4+ /HPF (NEGATIVE) 09/25/22 11:40 Ur Culture Indicated? Yes/culture set up 09/25/22 11:40 Plan (1) Acute hyperkalemia: Status: Resolved Plan: Recheck potassium in the morning. Hold patient's triamterene/HCTZ. IV hydration (2) Acute UTI: Status: Acute Plan: IV Rocephin (3) Acute renal failure (ARF): Status: Acute Plan: IV hydration for dehydration (4) Hypotension: Status: Resolved Qualifiers: Hypotension type: unspecified hypotension type Qualified Code(s): I95.9 - Hypotension, unspecified Plan: IV hydration in the ER physician removed the patient's nitroglycerin patch. Monitor for improvement of blood pressure. (5) Atrial fibrillation: Status: Chronic Plan: Continue patient's metoprolol and Eliquis. 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 rifampin 3 mg twice daily and doxycycline 100 mg p.o. twice daily. (11) Buttock wound: Status: Acute Plan: IV Rocephin (12) Sacral decubitus ulcer: Status: Acute Plan: Debridement per general surgery today.
[2022-09-28] MEDS: NovoLIN R (or HumuLIN R) SUBCUT PRN ×2 (17:14→21:41)
[2022-09-28] MEDS: SNACK - Diabetic Appropriate PO SCH (21:33)
[2022-09-29] MEDS ORDERED: GLUTOSE 15 GEL ORAL PO PRN (02:25)
[2022-09-29] MEDS: GLUTOSE 15 GEL ORAL PO ONE ×2 (02:40→04:49)
[2022-09-29] MEDS: APRESOLINE TAB 25 MG PO SCH (05:16)
[2022-09-29 05:18] LABS: HEMOGLOBIN 10.2 g/dL (12.0-16.0); MEAN CORPUSCULAR HEMOGLOBIN 31.3 pg (27.0-34.0); MEAN PLATELET VOLUME 7.4 fL (7.4-11.0)
[2022-09-29 05:24] LABS: BASOPHILS % (AUTO) 0.4 % (0.2-1.0); EOSINOPHILS # (AUTO) 0.1 x10^3/uL (0.0-0.2); EOSINOPHILS % (AUTO) 1.2 % (0.9-2.9); HEMATOCRIT 30.3 % (36.0-47.0); LYMPHOCYTES # (AUTO) 0.3 X10^3/uL (1.3-2.9); LYMPHOCYTES % (AUTO) 2.7 % (21.0-51.0); MEAN CORPUSCULAR HGB CONC 33.6 g/dL (33.0-35.0); MONOCYTES # (AUTO) 0.8 x10^3/uL (0.3-0.8); NEUTROPHILS # (AUTO) 8.8 x10^3/uL (2.2-4.8); NEUTROPHILS % (AUTO) 87.7 % (42.0-75.0); RED BLOOD COUNT 3.26 X10^6/uL (3.5-5.4); RED CELL DISTRIBUTION WIDTH 15.4 % (11.6-16.5); WHITE BLOOD COUNT 10.1 X10^3/uL (3.6-10.0)
[2022-09-29 05:53] LABS: ALANINE AMINOTRANSFERASE 35 Units/L (12-78); ALBUMIN 1.9 g/dL (3.4-5.0); ALKALINE PHOSPHATASE 309 Units/L (46-116); ASPARTATE AMINO TRANSFERASE 25 Units/L (15-37); BLOOD UREA NITROGEN 17 mg/dL (7-18); CALCIUM 8.1 mg/dL (8.5-10.1); CARBON DIOXIDE 26.3 mmol/L (21-32); CHLORIDE 104 mmol/L (98-107); COR CA(FOR HYPOALB) 9.8 mg/dL (8.5-10.1); COR NA(FOR HYPERGLY) 137 mmol/L (136-145); CREATININE 0.99 mg/dL (0.55-1.02); SODIUM 136 mmol/L (136-145); eGFR NON BLACK RACES 57 (>60)
[2022-09-29] MEDS: PULMICORT NEB TX 0.5 MG NEB SCH (08:32)
[2022-09-29] MEDS: XOPENEX 1.25 MG/3 ML NEBULE NEB SCH (08:32)
[2022-09-29] MEDS ORDERED: LEVEMIR SC SCH (09:00)
[2022-09-29] MEDS: ROCEPHIN VIAL 1 GRAM 1 G in NS 100 ML IV 100 ML IV SCH (09:00)
[2022-09-29] MEDS ORDERED: PHARMACY CONSULT LTC MEDICATIONS XX SCH (09:00)
[2022-09-29] MEDS: SYNTHROID 75 mcg TAB PO SCH (09:01)
[2022-09-29] MEDS: PROTONIX TAB 40 MG PO SCH (09:01)
[2022-09-29] MEDS: RIFADIN PO SCH (09:01)
[2022-09-29] MEDS: CARDIZEM CD 180 MG 24-HR PO SCH (09:01)
[2022-09-29] MEDS: NEURONTIN CAP 300 MG PO SCH (09:01)
[2022-09-29] MEDS: COLACE CAP 100 MG PO SCH (09:01)
[2022-09-29] MEDS: TOPROL XL PO SCH (09:02)
[2022-09-29] MEDS: HEMOCYTE-PLUS PO SCH (09:02)
[2022-09-29] MEDS: ELIQUIS PO SCH (09:02)
[2022-09-29] MEDS: VIBRAMYCIN PO SCH (09:02)
[2022-09-29 09:36] VITALS: BP 163/77
[2022-09-29] MEDS: XALATAN OP SCH (09:36)
[2022-09-29] MEDS: NS 1,000 ML IV 1,000 ML IV SCH (09:37)
[2022-09-29] MEDS ORDERED: CATAPRES-TTS-3 TD SCH (12:00)
== END 2022-09-29 14:00 | DRG 689 ==
LOC: ER 10:41 → MED/SURG 13:20 → ICU 09-26 17:45 → MED/SURG 09-26 20:47
PROVIDERS: ADMIT Family Medicine; ATTEND Internal Medicine
DX: I95.89 Other hypotension; I11.0 Hypertensive heart disease with heart failure; B96.29 Other Escherichia coli [E. coli] as the cause of diseases classified elsewhere; I50.9 Heart failure, unspecified; N17.8 Other acute kidney failure; B96.4 Proteus (mirabilis) (morganii) as the cause of diseases classified elsewhere; I48.91 Unspecified atrial fibrillation; B95.62 Methicillin resistant Staphylococcus aureus infection as the cause of diseases classified elsewhere; Z79.4 Long term (current) use of insulin; E87.5 Hyperkalemia; S81.802A Unspecified open wound, left lower leg, initial encounter; L89.153 Pressure ulcer of sacral region, stage 3; F32.5 Major depressive disorder, single episode, in full remission; S31.809A Unspecified open wound of unspecified buttock, initial encounter; Y92.9 Unspecified place or not applicable; E03.8 Other specified hypothyroidism; X58.XXXA Exposure to other specified factors, initial encounter; N39.0 Urinary tract infection, site not specified; E11.65 Type 2 diabetes mellitus with hyperglycemia

== ENCOUNTER 2022-10-16 09:20 | Observation (INO) ==
[2022-10-16] MEDS ORDERED: ANCEF VIAL 1 GRAM ONE (09:38)
[2022-10-16] MEDS ORDERED: NS 100 ML IV 100 ML ONE (09:38)
[2022-10-16] MEDS ORDERED: NS 1,000 ML IV 1,000 ML ONE (09:39)
[2022-10-16] MEDS ORDERED: REGLAN INJ 10 MG VIAL ONE (09:40)
[2022-10-16] MEDS ORDERED: PEPCID 20 MG VIAL ONE (09:40)
[2022-10-16] MEDS ORDERED: ZOFRAN INJ 4 MG VIAL ONE (09:40)
[2022-10-16] MEDS ORDERED: VERSED ONE (10:47)
[2022-10-16] MEDS ORDERED: KETAMINE 50 MG/5 ML-NACL SYRNG ONE (10:47)
[2022-10-16] MEDS ORDERED: FENTANYL VIAL INJ 100 mcg ONE (10:47)
[2022-10-16] MEDS ORDERED: DIPRIVAN VIAL 20 ML ONE (10:49)
[2022-10-16] MEDS ORDERED: POLYMYXIN B SULFATE ONE (11:46)
[2022-10-16] MEDS ORDERED: XYLOCAINE 1 % (PLAIN) ONE (11:46)
[2022-10-16] MEDS ORDERED: BETADINE SOLN ONE (11:49)
[2022-10-16] MEDS ORDERED: PHARMACY CONSULT LTC MEDICATIONS XX SCH (15:00)
[2022-10-16] MEDS: ZOSYN VIAL 3.375 GRAMS 3.375 G in NS 100 ML IV 100 ML IV SCH ×3 (15:09→21:45)
[2022-10-16] MEDS: MORPHINE SULFATE INJ 2 MG INJ IVP PRN ×2 (15:10→16:50)
[2022-10-16] MEDS: D5 1/2 NS 1,000 ML 1,000 ML IV SCH (15:30)
[2022-10-16] MEDS: CARDIZEM CD 180 MG 24-HR PO SCH (19:41)
[2022-10-16] MEDS: ELIQUIS PO SCH (20:40)
[2022-10-16] MEDS: PULMICORT NEB TX 0.5 MG NEB SCH (21:45)
[2022-10-16] MEDS: ZESTRIL TAB 40 MG PO SCH (21:45)
[2022-10-16] MEDS: TOPROL XL PO SCH (21:45)
[2022-10-17] MEDS: APRESOLINE TAB 25 MG PO SCH ×4 (01:09→22:50)
[2022-10-17] MEDS: D5 1/2 NS 1,000 ML 1,000 ML IV SCH (04:15)
[2022-10-17] MEDS: ZOSYN VIAL 3.375 GRAMS 3.375 G in NS 100 ML IV 100 ML IV SCH ×3 (05:10→21:12)
[2022-10-17] MEDS: MORPHINE SULFATE INJ 2 MG INJ IVP PRN ×4 (05:11→21:11)
[2022-10-17 05:48] LABS: BASOPHILS # (AUTO) 0.1 X10^3/uL (0.0-0.1); BASOPHILS % (AUTO) 0.8 % (0.2-1.0); EOSINOPHILS # (AUTO) 0.2 x10^3/uL (0.0-0.2); EOSINOPHILS % (AUTO) 3.1 % (0.9-2.9); HEMATOCRIT 24.7 % (36.0-47.0); HEMOGLOBIN 8.3 g/dL (12.0-16.0); LYMPHOCYTES # (AUTO) 0.8 X10^3/uL (1.3-2.9); LYMPHOCYTES % (AUTO) 12.4 % (21.0-51.0); MEAN CORPUSCULAR HEMOGLOBIN 30.4 pg (27.0-34.0); MEAN CORPUSCULAR HGB CONC 33.5 g/dL (33.0-35.0); MEAN CORPUSCULAR VOLUME 90.9 fL (80.0-100.0); MEAN PLATELET VOLUME 6.5 fL (7.4-11.0); MONOCYTES # (AUTO) 0.9 x10^3/uL (0.3-0.8); MONOCYTES % (AUTO) 14.1 % (0.0-13.0); NEUTROPHILS # (AUTO) 4.4 x10^3/uL (2.2-4.8); NEUTROPHILS % (AUTO) 69.6 % (42.0-75.0); RED BLOOD COUNT 2.72 X10^6/uL (3.5-5.4); WHITE BLOOD COUNT 6.4 X10^3/uL (3.6-10.0)
[2022-10-17 06:09] LABS: ALBUMIN 1.8 g/dL (3.4-5.0); CALCIUM 7.5 mg/dL (8.5-10.1); CARBON DIOXIDE 24.1 mmol/L (21-32); COR CA(FOR HYPOALB) 9.3 mg/dL (8.5-10.1); CREATININE 1.14 mg/dL (0.55-1.02); TOTAL PROTEIN 5.5 g/dL (6.4-8.2)
[2022-10-17 06:35] LABS: BAND NEUTROPHILS % 1 % (0-10); PLATELET MORPHOLOGY COMMENT NORMAL (NORMAL)
[2022-10-17] MEDS: NITRODUR PATCH 0.4 MG/HR TD SCH (08:16)
[2022-10-17] MEDS: ELIQUIS PO SCH ×2 (08:17→20:48)
[2022-10-17] MEDS: CARDIZEM CD 180 MG 24-HR PO SCH (08:17)
[2022-10-17] MEDS: ZESTRIL TAB 40 MG PO SCH ×2 (08:17→20:49)
[2022-10-17] MEDS: TOPROL XL PO SCH ×2 (08:17→20:49)
[2022-10-17] MEDS: PULMICORT NEB TX 0.5 MG NEB SCH ×2 (09:06→20:55)
--- NOTE | 2022-10-17 10:17 | DR.PROGNOT ---
HOSPITAL PROGRESS NOTE Progress Note for Day of: Progress Note Date: 10/17/22 Chief Complaint Chief Complaint: having tachycardia up to 140 .. no chest pain , no SOB . dressing was changed , no bleeding , moderate drainage , WBC , LFT normal . Creat 1.1 .. BS 199 . afebrile . Past Medical Family Social History Allergies: Allergies tuberculin,PPD,multi-puncture Allergy (Verified 03/10/20 13:33) Review Of Systems ROS: No change since H&P Vital Signs Vital Signs: Temperature 98.1 F Pulse Rate 124 Respiratory Rate 16 Blood Pressure [Left Arm] 163/77 Blood Pressure [Right Arm] 126/88 Blood Pressure 164/70 O2 Sat by Pulse Oximetry 100 Physical Exam Oriented: Normal GI:Auscultation: Normal GI:Palpation: Normal Mood Description: Calm and Appropriate Speech Pattern: Appropriate Laboratory and Diagnostics Result Diagrams: 10/17/22 04:35 10/17/22 04:35 Labs: 10/16/22 12:29 Sacral Wound Gram Stain - Final Laboratory WBC 6.4 X10^3/uL (3.6-10.0) 10/17/22 04:35 RBC 2.72 X10^6/uL (3.5-5.4) L 10/17/22 04:35 Hgb 8.3 g/dL (12.0-16.0) L 10/17/22 04:35 Hct 24.7 % (36.0-47.0) L 10/17/22 04:35 MCV 90.9 fL (80.0-100.0) 10/17/22 04:35 MCH 30.4 pg (27.0-34.0) 10/17/22 04:35 MCHC 33.5 g/dL (33.0-35.0) 10/17/22 04:35 RDW 16.0 % (11.6-16.5) 10/17/22 04:35 Plt Count 353 X10^3/uL (150.0-450.0) 10/17/22 04:35 Plt Count Comment Adequate (ADEQUATE) 10/17/22 04:35 MPV 6.5 fL (7.4-11.0) L 10/17/22 04:35 Neut % (Auto) 69.6 % (42.0-75.0) 10/17/22 04:35 Lymph % (Auto) 12.4 % (21.0-51.0) L 10/17/22 04:35 [place] % (Auto) 14.1 % (0.0-13.0) H 10/17/22 04:35 Eos % (Auto) 3.1 % (0.9-2.9) H 10/17/22 04:35 Baso % (Auto) 0.8 % (0.2-1.0) 10/17/22 04:35 Neut # (Auto) 4.4 x10^3/uL (2.2-4.8) 10/17/22 04:35 Lymph # (Auto) 0.8 X10^3/uL (1.3-2.9) L 10/17/22 04:35 [place] # (Auto) 0.9 x10^3/uL (0.3-0.8) H 10/17/22 04:35 Eos # (Auto) 0.2 x10^3/uL (0.0-0.2) 10/17/22 04:35 Baso # (Auto) 0.1 X10^3/uL (0.0-0.1) 10/17/22 04:35 Absolute Nucleated RBC 0.1 /100WBC 10/17/22 04:35 Total Counted 100 10/17/22 04:35 Neutrophils % (Manual) 83 % (39-76) H 10/17/22 04:35 Band Neutrophils % 1 % (0-10) 10/17/22 04:35 Lymphocytes % (Manual) 10 % (13-43) L 10/17/22 04:35 Monocytes % (Manual) 4 % (4-9) 10/17/22 04:35 Eosinophils % (Manual) 2 % (0-6) 10/17/22 04:35 Plt Morphology Comment Normal (NORMAL) 10/17/22 04:35 RBC Morphology Normal (NORMAL) 10/17/22 04:35 Sodium 134 mmol/L (136-145) L 10/17/22 04:35 Corrected Sodium 136 mmol/L (136-145) 10/17/22 04:35 Potassium 4.7 mmol/L (3.5-5.1) 10/17/22 04:35 Chloride 101 mmol/L (98-107) 10/17/22 04:35 Carbon Dioxide 24.1 mmol/L (21-32) 10/17/22 04:35 BUN 15 mg/dL (7-18) 10/17/22 04:35 Creatinine 1.14 mg/dL (0.55-1.02) H 10/17/22 04:35 Est GFR (MDRD) Af Amer 58 (>60) L 10/17/22 04:35 Est GFR (MDRD) Non-Af 48 (>60) L 10/17/22 04:35 Glucose 199 mg/dL (65-99) H 10/17/22 04:35 POC Glucose (mg/dL) 194 mg/dL (65-99) H 10/17/22 05:20 Calcium 7.5 mg/dL (8.5-10.1) L 10/17/22 04:35 Corrected Calcium 9.3 mg/dL (8.5-10.1) 10/17/22 04:35 Total Bilirubin 0.40 mg/dL (0.2-1.0) 10/17/22 04:35 AST 17 Units/L (15-37) 10/17/22 04:35 ALT 15 Units/L (12-78) 10/17/22 04:35 Alkaline Phosphatase 140 Units/L (46-116) H 10/17/22 04:35 Total Protein 5.5 g/dL (6.4-8.2) L 10/17/22 04:35 Albumin 1.8 g/dL (3.4-5.0) L 10/17/22 04:35 Globulin 3.7 g/dL (2.5-4.5) 10/17/22 04:35 Albumin/Globulin Ratio 0.5 Ratio (1.1-2.1) L 10/17/22 04:35 Tissue Pathology To follow 10/16/22 12:30 Problem Patient Problems: large sacral ulcer 10 x 8 cm stage 3 . same local care , IV ABT A Fib with RVR . DM . confinement to bed . to have medical consult .. wound Vac in two days .
[2022-10-17] MEDS: LR 1,000 ML IV 1,000 ML IV SCH (11:11)
[2022-10-17 13:57] VITALS: BMI 23.8
[2022-10-18] MEDS: LR 1,000 ML IV 1,000 ML IV SCH ×2 (00:45→12:05)
[2022-10-18 05:11] LABS: BASOPHILS # (AUTO) 0.2 X10^3/uL (0.0-0.1); BASOPHILS % (AUTO) 3.5 % (0.2-1.0); EOSINOPHILS # (AUTO) 0.2 x10^3/uL (0.0-0.2); EOSINOPHILS % (AUTO) 4.8 % (0.9-2.9); HEMATOCRIT 22.5 % (36.0-47.0); HEMOGLOBIN 7.7 g/dL (12.0-16.0); LYMPHOCYTES # (AUTO) 0.9 X10^3/uL (1.3-2.9); LYMPHOCYTES % (AUTO) 19.1 % (21.0-51.0); MEAN CORPUSCULAR HEMOGLOBIN 30.7 pg (27.0-34.0); MEAN CORPUSCULAR HGB CONC 34.2 g/dL (33.0-35.0); MEAN CORPUSCULAR VOLUME 89.9 fL (80.0-100.0); MEAN PLATELET VOLUME 6.2 fL (7.4-11.0); MONOCYTES # (AUTO) 0.6 x10^3/uL (0.3-0.8); MONOCYTES % (AUTO) 12.3 % (0.0-13.0); NEUTROPHILS # (AUTO) 2.7 x10^3/uL (2.2-4.8); NEUTROPHILS % (AUTO) 60.3 % (42.0-75.0); RED CELL DISTRIBUTION WIDTH 16.3 % (11.6-16.5); WHITE BLOOD COUNT 4.5 X10^3/uL (3.6-10.0)
[2022-10-18 05:18] LABS: ALANINE AMINOTRANSFERASE 12 Units/L (12-78); ALBUMIN 1.8 g/dL (3.4-5.0); ALKALINE PHOSPHATASE 127 Units/L (46-116); ASPARTATE AMINO TRANSFERASE 15 Units/L (15-37); BLOOD UREA NITROGEN 9 mg/dL (7-18); CALCIUM 7.8 mg/dL (8.5-10.1); CARBON DIOXIDE 28.7 mmol/L (21-32); CHLORIDE 105 mmol/L (98-107); COR CA(FOR HYPOALB) 9.6 mg/dL (8.5-10.1); COR NA(FOR HYPERGLY) 138 mmol/L (136-145); CREATININE 1.01 mg/dL (0.55-1.02); SODIUM 138 mmol/L (136-145); TOTAL PROTEIN 5.4 g/dL (6.4-8.2); eGFR NON BLACK RACES 55 (>60)
[2022-10-18] MEDS: APRESOLINE TAB 25 MG PO SCH ×3 (05:52→21:09)
[2022-10-18] MEDS: ZOSYN VIAL 3.375 GRAMS 3.375 G in NS 100 ML IV 100 ML IV SCH ×3 (05:53→21:10)
[2022-10-18] MEDS: NITRODUR PATCH 0.4 MG/HR TD SCH (08:09)
[2022-10-18] MEDS: ELIQUIS PO SCH ×2 (08:11→21:08)
[2022-10-18] MEDS: CARDIZEM CD 240 MG 24-HR PO SCH (08:11)
[2022-10-18] MEDS: ZESTRIL TAB 40 MG PO SCH ×2 (08:12→21:09)
[2022-10-18] MEDS: TOPROL XL PO SCH ×2 (08:12→21:09)
[2022-10-18] MEDS: PULMICORT NEB TX 0.5 MG NEB SCH ×2 (08:49→20:55)
[2022-10-18] MEDS ORDERED: CARDIZEM CD 180 MG 24-HR PO SCH (09:00)
[2022-10-18] MEDS ORDERED: NS 250 ML IV 250 ML IV PRN (11:08)
[2022-10-18 11:49] LABS: IRON 51 ug/dL (50-175)
[2022-10-18] MEDS: MORPHINE SULFATE INJ 2 MG INJ IVP PRN (12:45)
[2022-10-18 18:03] LABS: HEMATOCRIT 29.6 % (36.0-47.0)
--- NOTE | 2022-10-18 18:39 | DR.PROGNOT ---
HOSPITAL PROGRESS NOTE Progress Note for Day of: Progress Note Date: 10/18/22 Chief Complaint Chief Complaint: tachycardia has improved with Cardizem .. no chest pain , no SOB . was transfused today , Hgb is 10 now .. Albumin 1.8 .. BS119 dressing was changed , no bleeding , moderate drainage , afebrile . Past Medical Family Social History Allergies: Allergies tuberculin,PPD,multi-puncture Allergy (Verified 03/10/20 13:33) Review Of Systems ROS: No change since H&P Vital Signs Vital Signs: Temperature 98.3 F Pulse Rate 77 Respiratory Rate 17 Blood Pressure [Left Arm] 163/77 Blood Pressure [Right Arm] 126/88 Blood Pressure 136/63 O2 Sat by Pulse Oximetry 97 Physical Exam Oriented: Normal GI:Auscultation: Normal GI:Palpation: Normal Mood Description: Calm and Appropriate Speech Pattern: Appropriate Laboratory and Diagnostics Result Diagrams: 10/18/22 17:30 10/18/22 04:30 Labs: 10/16/22 12:29 Sacral Wound Gram Stain - Final 10/16/22 12:29 Sacral Wound Culture - Preliminary Escherichia Coli Laboratory WBC 4.5 X10^3/uL (3.6-10.0) 10/18/22 04:30 RBC 2.50 X10^6/uL (3.5-5.4) L 10/18/22 04:30 Hgb 10.0 g/dL (12.0-16.0) L D 10/18/22 17:30 Hct 29.6 % (36.0-47.0) L 10/18/22 17:30 MCV 89.9 fL (80.0-100.0) 10/18/22 04:30 MCH 30.7 pg (27.0-34.0) 10/18/22 04:30 MCHC 34.2 g/dL (33.0-35.0) 10/18/22 04:30 RDW 16.3 % (11.6-16.5) 10/18/22 04:30 Plt Count 291 X10^3/uL (150.0-450.0) 10/18/22 04:30 Plt Count Comment Adequate (ADEQUATE) 10/17/22 04:35 MPV 6.2 fL (7.4-11.0) L 10/18/22 04:30 Neut % (Auto) 60.3 % (42.0-75.0) 10/18/22 04:30 Lymph % (Auto) 19.1 % (21.0-51.0) L 10/18/22 04:30 [place] % (Auto) 12.3 % (0.0-13.0) 10/18/22 04:30 Eos % (Auto) 4.8 % (0.9-2.9) H 10/18/22 04:30 Baso % (Auto) 3.5 % (0.2-1.0) H 10/18/22 04:30 Neut # (Auto) 2.7 x10^3/uL (2.2-4.8) 10/18/22 04:30 Lymph # (Auto) 0.9 X10^3/uL (1.3-2.9) L 10/18/22 04:30 [place] # (Auto) 0.6 x10^3/uL (0.3-0.8) 10/18/22 04:30 Eos # (Auto) 0.2 x10^3/uL (0.0-0.2) 10/18/22 04:30 Baso # (Auto) 0.2 X10^3/uL (0.0-0.1) H 10/18/22 04:30 Absolute Nucleated RBC 0.1 /100WBC 10/18/22 04:30 Total Counted 100 10/17/22 04:35 Neutrophils % (Manual) 83 % (39-76) H 10/17/22 04:35 Band Neutrophils % 1 % (0-10) 10/17/22 04:35 Lymphocytes % (Manual) 10 % (13-43) L 10/17/22 04:35 Monocytes % (Manual) 4 % (4-9) 10/17/22 04:35 Eosinophils % (Manual) 2 % (0-6) 10/17/22 04:35 Plt Morphology Comment Normal (NORMAL) 10/17/22 04:35 RBC Morphology Normal (NORMAL) 10/17/22 04:35 Sodium 138 mmol/L (136-145) 10/18/22 04:30 Corrected Sodium 138 mmol/L (136-145) 10/18/22 04:30 Potassium 4.4 mmol/L (3.5-5.1) 10/18/22 04:30 Chloride 105 mmol/L (98-107) 10/18/22 04:30 Carbon Dioxide 28.7 mmol/L (21-32) 10/18/22 04:30 BUN 9 mg/dL (7-18) 10/18/22 04:30 Creatinine 1.01 mg/dL (0.55-1.02) 10/18/22 04:30 Est GFR (MDRD) Af Amer > 60 (>60) 10/18/22 04:30 Est GFR (MDRD) Non-Af 55 (>60) L 10/18/22 04:30 Glucose 119 mg/dL (65-99) H 10/18/22 04:30 POC Glucose (mg/dL) 296 mg/dL (65-99) H 10/18/22 16:31 Calcium 7.8 mg/dL (8.5-10.1) L 10/18/22 04:30 Corrected Calcium 9.6 mg/dL (8.5-10.1) 10/18/22 04:30 Iron 51 ug/dL (50-175) 10/18/22 10:40 Transferrin 144 mg/dL (202-364) L 10/18/22 10:40 Ferritin 545 ng/mL (8-252) H 10/18/22 10:40 Total Bilirubin 0.40 mg/dL (0.2-1.0) 10/18/22 04:30 AST 15 Units/L (15-37) 10/18/22 04:30 ALT 12 Units/L (12-78) 10/18/22 04:30 Alkaline Phosphatase 127 Units/L (46-116) H 10/18/22 04:30 Total Protein 5.4 g/dL (6.4-8.2) L 10/18/22 04:30 Albumin 1.8 g/dL (3.4-5.0) L 10/18/22 04:30 Globulin 3.6 g/dL (2.5-4.5) 10/18/22 04:30 Albumin/Globulin Ratio 0.5 Ratio (1.1-2.1) L 10/18/22 04:30 Vitamin B12 569 pg/mL (193-986) 10/18/22 10:40 Folate > 20.0 ng/mL (>8.6) 10/18/22 10:40 Tissue Pathology To follow 10/16/22 12:30 Blood Type A POSITIVE 10/18/22 10:40 Antibody Screen Negative 10/18/22 10:40 Crossmatch See Detail 10/18/22 10:40 Problem Patient Problems: sacral ulcer stage 3 , 10 x 8 cm . A-Fib with rapid VR on Cardizem . low Abumin and Anemia and malnutrition .. for Wound Vac in Am
[2022-10-19] MEDS: LR 1,000 ML IV 1,000 ML IV SCH (04:13)
[2022-10-19 04:49] LABS: BASOPHILS # (AUTO) 0.1 X10^3/uL (0.0-0.1); BASOPHILS % (AUTO) 1.3 % (0.2-1.0); EOSINOPHILS # (AUTO) 0.2 x10^3/uL (0.0-0.2); EOSINOPHILS % (AUTO) 3.2 % (0.9-2.9); HEMATOCRIT 27.5 % (36.0-47.0); HEMOGLOBIN 9.4 g/dL (12.0-16.0); LYMPHOCYTES # (AUTO) 1.1 X10^3/uL (1.3-2.9); LYMPHOCYTES % (AUTO) 15.7 % (21.0-51.0); MEAN CORPUSCULAR HEMOGLOBIN 30.8 pg (27.0-34.0); MEAN CORPUSCULAR VOLUME 90.7 fL (80.0-100.0); MEAN PLATELET VOLUME 6.4 fL (7.4-11.0); MONOCYTES % (AUTO) 14.1 % (0.0-13.0); NEUTROPHILS # (AUTO) 4.5 x10^3/uL (2.2-4.8); NEUTROPHILS % (AUTO) 65.7 % (42.0-75.0); RED BLOOD COUNT 3.03 X10^6/uL (3.5-5.4); RED CELL DISTRIBUTION WIDTH 16.1 % (11.6-16.5)
[2022-10-19 05:00] LABS: ALANINE AMINOTRANSFERASE 13 Units/L (12-78); ALBUMIN 1.9 g/dL (3.4-5.0); ALKALINE PHOSPHATASE 126 Units/L (46-116); ASPARTATE AMINO TRANSFERASE 16 Units/L (15-37); BLOOD UREA NITROGEN 8 mg/dL (7-18); CARBON DIOXIDE 26.6 mmol/L (21-32); CHLORIDE 102 mmol/L (98-107); COR CA(FOR HYPOALB) 9.7 mg/dL (8.5-10.1); COR NA(FOR HYPERGLY) 137 mmol/L (136-145); CREATININE 0.91 mg/dL (0.55-1.02); SODIUM 136 mmol/L (136-145); TOTAL PROTEIN 5.5 g/dL (6.4-8.2); eGFR NON BLACK RACES > 60 (>60)
[2022-10-19] MEDS: APRESOLINE TAB 25 MG PO SCH (05:24)
[2022-10-19] MEDS: ZOSYN VIAL 3.375 GRAMS 3.375 G in NS 100 ML IV 100 ML IV SCH (05:26)
[2022-10-19 05:32] LABS: WHITE BLOOD COUNT 7.3 X10^3/uL (3.6-10.0)
[2022-10-19 05:36] LABS: ANISOCYTOSIS SLIGHT; BAND NEUTROPHILS % 4 % (0-10); METAMYELOCYTES % 4; MYELOCYTES % 1; PLATELET MORPHOLOGY COMMENT NORMAL (NORMAL); SCHISTOCYTES SLIGHT
[2022-10-19] MEDS: PULMICORT NEB TX 0.5 MG NEB SCH (08:19)
[2022-10-19] MEDS: TOPROL XL PO SCH (09:37)
[2022-10-19] MEDS: NITRODUR PATCH 0.4 MG/HR TD SCH (09:37)
[2022-10-19] MEDS: ZESTRIL TAB 40 MG PO SCH (09:37)
[2022-10-19] MEDS: ELIQUIS PO SCH (09:38)
[2022-10-19] MEDS: CARDIZEM CD 240 MG 24-HR PO SCH (09:38)
[2022-10-19] MEDS: MORPHINE SULFATE INJ 2 MG INJ IVP PRN (11:32)
[2022-10-19 14:02] VITALS: BP 137/72
== END 2022-10-19 14:45 ==
LOC: SURG1 09:20 → ICU 09:20
PROVIDERS: ADMIT Surgery; ATTEND Surgery
DX: Z74.01 Bed confinement status; I10 Essential (primary) hypertension; B96.29 Other Escherichia coli [E. coli] as the cause of diseases classified elsewhere; L89.153 Pressure ulcer of sacral region, stage 3; R00.0 Tachycardia, unspecified; E11.65 Type 2 diabetes mellitus with hyperglycemia; B96.4 Proteus (mirabilis) (morganii) as the cause of diseases classified elsewhere; R15.9 Full incontinence of feces; R32 Unspecified urinary incontinence; I48.91 Unspecified atrial fibrillation

== ENCOUNTER 2024-10-12 12:57 | Inpatient (IN) ==
[2024-10-12 17:53] LABS: BASOPHILS # (AUTO) 0.1 X10^3/uL (0.0-0.1); BASOPHILS % (AUTO) 1.1 % (0.2-1.0); EOSINOPHILS # (AUTO) 0.5 x10^3/uL (0.0-0.2); EOSINOPHILS % (AUTO) 4.8 % (0.9-2.9); HEMATOCRIT 40.6 % (36.0-47.0); LYMPHOCYTES # (AUTO) 2.3 X10^3/uL (1.3-2.9); LYMPHOCYTES % (AUTO) 24.1 % (21.0-51.0); MEAN CORPUSCULAR HEMOGLOBIN 31.4 pg (27.0-34.0); MEAN CORPUSCULAR HGB CONC 34.5 g/dL (33.0-35.0); MEAN CORPUSCULAR VOLUME 90.9 fL (80.0-100.0); MEAN PLATELET VOLUME 6.6 fL (7.4-11.0); MONOCYTES # (AUTO) 1.1 x10^3/uL (0.3-0.8); MONOCYTES % (AUTO) 11.4 % (0.0-13.0); NEUTROPHILS # (AUTO) 5.5 x10^3/uL (2.2-4.8); NEUTROPHILS % (AUTO) 58.6 % (42.0-75.0); PLATELET COUNT 331 X10^3/uL (150.0-450.0); RED BLOOD COUNT 4.47 X10^6/uL (3.5-5.4); RED CELL DISTRIBUTION WIDTH 15.9 % (11.6-16.5); WHITE BLOOD COUNT 9.4 X10^3/uL (3.6-10.0)
[2024-10-12 18:06] LABS: ALANINE AMINOTRANSFERASE 25 Units/L (12-78); ALBUMIN 3.3 g/dL (3.4-5.0); ALKALINE PHOSPHATASE 140 Units/L (46-116); ASPARTATE AMINO TRANSFERASE 22 Units/L (15-37); BLOOD UREA NITROGEN 14 mg/dL (7-18); CALCIUM 9.4 mg/dL (8.5-10.1); CARBON DIOXIDE 26.5 mmol/L (21-32); CHLORIDE 100 mmol/L (98-107); CREATININE 1.34 mg/dL (0.55-1.02); GLUCOSE 77 mg/dL (65-99); POTASSIUM 4.2 mmol/L (3.5-5.1); SODIUM 137 mmol/L (136-145); TOTAL PROTEIN 7.6 g/dL (6.4-8.2); eGFR NON BLACK RACES 40 (>60)
[2024-10-12] MEDS: BACTROBAN TOPICAL OINT ONE (18:41)
[2024-10-12] MEDS: NORCO 5/325 MG TAB PO PRN (19:49)
[2024-10-12] MEDS: VANCOMYCIN IV *PREMIX 1 G/200 ML BAG 1 G/200 ML PIGGYBACK IV ONE (21:10)
[2024-10-12] MEDS: VANCOMYCIN HCL 1 G in D5W 250 ML IV 250 ML IV ONE (21:32)
[2024-10-13 06:37] LABS: BASOPHILS # (AUTO) 0.1 X10^3/uL (0.0-0.1); BASOPHILS % (AUTO) 0.9 % (0.2-1.0); EOSINOPHILS # (AUTO) 0.2 x10^3/uL (0.0-0.2); EOSINOPHILS % (AUTO) 2.4 % (0.9-2.9); HEMATOCRIT 39.4 % (36.0-47.0); HEMOGLOBIN 13.8 g/dL (12.0-16.0); LYMPHOCYTES % (AUTO) 13.9 % (21.0-51.0); MEAN CORPUSCULAR HEMOGLOBIN 31.6 pg (27.0-34.0); MEAN CORPUSCULAR HGB CONC 34.9 g/dL (33.0-35.0); MEAN CORPUSCULAR VOLUME 90.7 fL (80.0-100.0); MEAN PLATELET VOLUME 7.1 fL (7.4-11.0); MONOCYTES # (AUTO) 0.6 x10^3/uL (0.3-0.8); MONOCYTES % (AUTO) 9.1 % (0.0-13.0); NEUTROPHILS # (AUTO) 5.3 x10^3/uL (2.2-4.8); NEUTROPHILS % (AUTO) 73.7 % (42.0-75.0); PLATELET COUNT 285 X10^3/uL (150.0-450.0); RED BLOOD COUNT 4.35 X10^6/uL (3.5-5.4); RED CELL DISTRIBUTION WIDTH 15.3 % (11.6-16.5); WHITE BLOOD COUNT 7.1 X10^3/uL (3.6-10.0)
[2024-10-13 07:00] LABS: ALANINE AMINOTRANSFERASE 25 Units/L (12-78); ALBUMIN 3.1 g/dL (3.4-5.0); ALKALINE PHOSPHATASE 128 Units/L (46-116); ASPARTATE AMINO TRANSFERASE 21 Units/L (15-37); BLOOD UREA NITROGEN 15 mg/dL (7-18); CALCIUM 9.5 mg/dL (8.5-10.1); CARBON DIOXIDE 26.4 mmol/L (21-32); CHLORIDE 103 mmol/L (98-107); COR CA(FOR HYPOALB) 10.2 mg/dL (8.5-10.1); CREATININE 1.37 mg/dL (0.55-1.02); GLUCOSE 63 mg/dL (65-99); POTASSIUM 3.7 mmol/L (3.5-5.1); SODIUM 140 mmol/L (136-145); TOTAL PROTEIN 7.1 g/dL (6.4-8.2); eGFR NON BLACK RACES 39 (>60)
--- NOTE | 2024-10-13 07:08 | RAD ---
EXAM: Right foot three views HISTORY: Wound great toe COMPARISON: None FINDINGS: Bones are severely osteopenic. No fracture, lytic, or blastic lesion is identified. No erosive ar thritis is present. Arterial vascular calcifications are present. There appears to be a soft tissue defect adjacent to the distal phalanx of the great toe. There is no soft tissue gas to suggest gang kennedy. No abnormal periosteal reaction is present. Tarsal bones are intact and normally aligned. Li sfranc joint is intact. IMPRESSION: Severe osteopenia Soft tissue defect adjacent to the distal 1st phalanx. No soft tissue gas to suggest gangrene No plain film findings of osteomyelitis. If osteomyelitis is suspected MRI with and without contrast is the examination of choice. THIS IS AN ELECTRONICALLY VERIFIED FINAL REPORT 10/13/2024 7:05 AM - Electronically signed by Jose E Mckee MD
[2024-10-13] MEDS ORDERED: CONSULT PHARMACY - POTASSIUM & MAGNESIUM XX SCH (08:00)
[2024-10-13] MEDS: BACTROBAN TOPICAL OINT TOP SCH ×2 (09:50→20:46)
--- NOTE | 2024-10-13 12:03 | DR.PROGNOT ---
HOSPITAL PROGRESS NOTE Progress Note for Day of: Progress Note Date: 10/13/24 Chief Complaint Chief Complaint: Patient is doing much better today awake and alert. X-ray of the right big toe showed severe osteopenia, no evidence of osteomyelitis. The erythema on top of the foot had subsided with ulceration of the dorsal aspect of the big toe. WBC 7.1 and hemoglobin 13.8. BUN 15 and creatinine 1.37, GFR 47 albumin 3.1. Culture showed MRSA and sensitive to vancomycin and clindamycin. Patient is afebrile. To continue vancomycin.. Past Medical Family Social History Past Med/Fam/Surg Hx: No changes since H&P Allergies: Allergies tuberculin,PPD,multi-puncture Allergy (Unknown, Verified 10/12/24 11:10) Vital Signs Vital Signs: Vital Signs Temperature 97.5 F Temperature 97.3 F Temperature 98.0 F Pulse Rate [Left Brachial] 84 Pulse Rate [Left Brachial] 75 Pulse Rate [Left Brachial] 73 Respiratory Rate 18 Respiratory Rate 17 Respiratory Rate 18 Blood Pressure [Left Arm] 118/74 Blood Pressure [Left Arm] 139/76 Blood Pressure [Left Arm] 134/66 O2 Sat by Pulse Oximetry 100 O2 Sat by Pulse Oximetry 97 O2 Sat by Pulse Oximetry 95 Physical Exam Oriented: Normal Eyes: Normal Ear: Normal Nose: Normal Throat: Normal Respiratory: Normal Cardiovascular: Normal GI:Auscultation: Normal GI:Palpation: Normal GI: Tenderness: Normal Skin: Other (2 x 2 ulceration of the dorsal aspect of the right big toe with associated erythema involving the big toe and part of the forefoot.) Speech Pattern: Clear and Appropriate Laboratory and Diagnostics 10/13/24 05:37 10/13/24 05:37 Labs: Laboratory WBC 7.1 X10^3/uL (3.6-10.0) 10/13/24 05:37 RBC 4.35 X10^6/uL (3.5-5.4) 10/13/24 05:37 Hgb 13.8 g/dL (12.0-16.0) 10/13/24 05:37 Hct 39.4 % (36.0-47.0) 10/13/24 05:37 MCV 90.7 fL (80.0-100.0) 10/13/24 05:37 MCH 31.6 pg (27.0-34.0) 10/13/24 05:37 MCHC 34.9 g/dL (33.0-35.0) 10/13/24 05:37 RDW 15.3 % (11.6-16.5) 10/13/24 05:37 Plt Count 285 X10^3/uL (150.0-450.0) 10/13/24 05:37 MPV 7.1 fL (7.4-11.0) L 10/13/24 05:37 Neut % (Auto) 73.7 % (42.0-75.0) 10/13/24 05:37 Lymph % (Auto) 13.9 % (21.0-51.0) L 10/13/24 05:37 [place] % (Auto) 9.1 % (0.0-13.0) 10/13/24 05:37 Eos % (Auto) 2.4 % (0.9-2.9) 10/13/24 05:37 Baso % (Auto) 0.9 % (0.2-1.0) 10/13/24 05:37 Neut # (Auto) 5.3 x10^3/uL (2.2-4.8) H 10/13/24 05:37 Lymph # (Auto) 1.0 X10^3/uL (1.3-2.9) L 10/13/24 05:37 [place] # (Auto) 0.6 x10^3/uL (0.3-0.8) 10/13/24 05:37 Eos # (Auto) 0.2 x10^3/uL (0.0-0.2) 10/13/24 05:37 Baso # (Auto) 0.1 X10^3/uL (0.0-0.1) 10/13/24 05:37 Absolute Nucleated RBC 0.1 /100WBC 10/13/24 05:37 Sodium 140 mmol/L (136-145) 10/13/24 05:37 Corrected Sodium TNP 10/13/24 05:37 Potassium 3.7 mmol/L (3.5-5.1) 10/13/24 05:37 Chloride 103 mmol/L (98-107) 10/13/24 05:37 Carbon Dioxide 26.4 mmol/L (21-32) 10/13/24 05:37 BUN 15 mg/dL (7-18) 10/13/24 05:37 Creatinine 1.37 mg/dL (0.55-1.02) H 10/13/24 05:37 Est GFR (MDRD) Af Amer 47 (>60) L 10/13/24 05:37 Est GFR (MDRD) Non-Af 39 (>60) L 10/13/24 05:37 Glucose 63 mg/dL (65-99) L 10/13/24 05:37 POC Glucose (mg/dL) 163 mg/dL (65-99) H 10/13/24 11:10 Calcium 9.5 mg/dL (8.5-10.1) 10/13/24 05:37 Corrected Calcium 10.2 mg/dL (8.5-10.1) H 10/13/24 05:37 Magnesium 2.0 mg/dL (2.0-2.9) 10/13/24 05:37 Total Bilirubin 0.50 mg/dL (0.2-1.0) 10/13/24 05:37 AST 21 Units/L (15-37) 10/13/24 05:37 ALT 25 Units/L (12-78) 10/13/24 05:37 Alkaline Phosphatase 128 Units/L (46-116) H 10/13/24 05:37 Total Protein 7.1 g/dL (6.4-8.2) 10/13/24 05:37 Albumin 3.1 g/dL (3.4-5.0) L 10/13/24 05:37 Globulin 4.0 g/dL (2.5-4.5) 10/13/24 05:37 Albumin/Globulin Ratio 0.8 Ratio (1.1-2.1) L 10/13/24 05:37 Assessment and Plan 1: 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 Sensitive to vancomycin and clindamycin. Continue vancomycin for now Same local care with irrigation with peroxide and application of Bactroban ointment.. 2: Peripheral vascular disease and confinement to bed. DVT prophylaxis. 3: Proper control of diabetes, medical consultation was obtained.
[2024-10-13] MEDS: HYDROGEN PEROXIDE 3% ONE (12:17)
[2024-10-13] MEDS: APRESOLINE TAB 25 MG PO SCH (13:01)
[2024-10-13] MEDS: NovoLIN R (or HumuLIN R) SUBCUT PRN (16:28)
[2024-10-13] MEDS: BUTT CREAM (COMPOUND) TOP PRN (17:48)
[2024-10-13] MEDS: BUTT CREAM (COMPOUND) ONE (18:04)
[2024-10-13] MEDS ORDERED: BACTROBAN CREAM TOP SCH (18:30)
[2024-10-13] MEDS ORDERED: D5W IV SCH (20:00)
[2024-10-13] MEDS ORDERED: VANCOMYCIN HCL IV SCH (20:00)
[2024-10-13] MEDS: ELIQUIS PO SCH (20:45)
[2024-10-13] MEDS: SNACK - Diabetic Appropriate PO SCH (20:45)
[2024-10-13] MEDS: NS 250 ML IV 250 ML IV PRN (20:45)
[2024-10-13] MEDS: NEURONTIN CAP 300 MG PO SCH (20:45)
[2024-10-13] MEDS: TOPROL XL PO SCH (20:46)
[2024-10-13] MEDS: ZESTRIL TAB 40 MG PO SCH (20:46)
[2024-10-13] MEDS: LIPITOR TAB 20 MG PO SCH (20:46)
[2024-10-13] MEDS: PROTONIX TAB 40 MG PO SCH (20:46)
[2024-10-13] MEDS: D5W IV SCH (20:48)
[2024-10-13] MEDS: VANCOMYCIN HCL IV SCH (20:48)
[2024-10-13] MEDS ORDERED: D5W IV ONE (21:00)
[2024-10-13] MEDS ORDERED: VANCOMYCIN HCL IV ONE (21:00)
[2024-10-14 06:57] LABS: BASOPHILS # (AUTO) 0.1 X10^3/uL (0.0-0.1); BASOPHILS % (AUTO) 1.1 % (0.2-1.0); EOSINOPHILS # (AUTO) 0.3 x10^3/uL (0.0-0.2); HEMATOCRIT 41.1 % (36.0-47.0); HEMOGLOBIN 14.2 g/dL (12.0-16.0); LYMPHOCYTES # (AUTO) 1.2 X10^3/uL (1.3-2.9); LYMPHOCYTES % (AUTO) 22.1 % (21.0-51.0); MEAN CORPUSCULAR HEMOGLOBIN 31.4 pg (27.0-34.0); MEAN CORPUSCULAR HGB CONC 34.5 g/dL (33.0-35.0); MEAN CORPUSCULAR VOLUME 91.1 fL (80.0-100.0); MEAN PLATELET VOLUME 7.2 fL (7.4-11.0); MONOCYTES # (AUTO) 0.7 x10^3/uL (0.3-0.8); MONOCYTES % (AUTO) 12.3 % (0.0-13.0); NEUTROPHILS # (AUTO) 3.3 x10^3/uL (2.2-4.8); NEUTROPHILS % (AUTO) 59.5 % (42.0-75.0); PLATELET COUNT 262 X10^3/uL (150.0-450.0); RED BLOOD COUNT 4.51 X10^6/uL (3.5-5.4); RED CELL DISTRIBUTION WIDTH 15.3 % (11.6-16.5); WHITE BLOOD COUNT 5.6 X10^3/uL (3.6-10.0)
[2024-10-14] MEDS ORDERED: VANCOMYCIN IV *PREMIX 750 mg/150 ML BAG 750 MG/150 ML PIGGYBACK IV SCH (07:00)
[2024-10-14 07:15] LABS: ALBUMIN 3.1 g/dL (3.4-5.0); CALCIUM 9.2 mg/dL (8.5-10.1); CARBON DIOXIDE 26.8 mmol/L (21-32); COR CA(FOR HYPOALB) 9.9 mg/dL (8.5-10.1); CREATININE 1.23 mg/dL (0.55-1.02); POTASSIUM 3.6 mmol/L (3.5-5.1); TOTAL PROTEIN 7.2 g/dL (6.4-8.2)
[2024-10-14] MEDS ORDERED: CONSULT PHARMACY - POTASSIUM & MAGNESIUM XX SCH (08:00)
[2024-10-14] MEDS: TRESIBA U-100 INSULIN SC SCH (08:22)
[2024-10-14] MEDS: SYNTHROID 75 mcg TAB PO SCH (08:23)
[2024-10-14] MEDS: CARDIZEM CD 240 MG 24-HR PO SCH (08:26)
[2024-10-14] MEDS: K-DUR TAB 20 MEQ PO SCH (08:27)
--- NOTE | 2024-10-14 10:29 | DR.PROGNOT ---
HOSPITAL PROGRESS NOTE Progress Note for Day of: Progress Note Date: 10/14/24 Chief Complaint Chief Complaint: Slow improvement of the right big toe ulcer and cellulitis. Today awake and alert. X-ray of the right big toe showed severe osteopenia, no evidence of osteomyelitis. The erythema on top of the foot had subsided with ulceration of the dorsal aspect of the big toe. WBC 5.6 and hemoglobin 14.2. BUN 15 and creatinine 1.37, GFR 47 albumin 3.1. Culture showed MRSA and sensitive to vancomycin and clindamycin. Patient is afebrile. To continue vancomycin.. Past Medical Family Social History Past Med/Fam/Surg Hx: No changes since H&P Allergies: Allergies tuberculin,PPD,multi-puncture Allergy (Unknown, Verified 10/12/24 11:10) Vital Signs Vital Signs: Vital Signs Temperature 97.7 F Temperature 97.7 F Pulse Rate [Left Brachial] 100 Pulse Rate [Left Brachial] 92 Respiratory Rate 18 Respiratory Rate 20 Blood Pressure [Left Arm] 134/76 Blood Pressure [Left Arm] 144/90 O2 Sat by Pulse Oximetry 97 O2 Sat by Pulse Oximetry 96 Physical Exam Oriented: Normal Eyes: Normal Ear: Normal Nose: Normal Throat: Normal Respiratory: Normal Cardiovascular: Normal GI:Auscultation: Normal GI:Palpation: Normal GI: Tenderness: Normal Skin: Other (2 x 2 ulceration of the dorsal aspect of the right big toe with associated erythema involving the big toe and part of the forefoot.) Speech Pattern: Clear and Appropriate Laboratory and Diagnostics 10/14/24 05:28 10/14/24 05:28 Labs: Laboratory WBC 5.6 X10^3/uL (3.6-10.0) 10/14/24 05:28 RBC 4.51 X10^6/uL (3.5-5.4) 10/14/24 05:28 Hgb 14.2 g/dL (12.0-16.0) 10/14/24 05:28 Hct 41.1 % (36.0-47.0) 10/14/24 05:28 MCV 91.1 fL (80.0-100.0) 10/14/24 05:28 MCH 31.4 pg (27.0-34.0) 10/14/24 05:28 MCHC 34.5 g/dL (33.0-35.0) 10/14/24 05:28 RDW 15.3 % (11.6-16.5) 10/14/24 05:28 Plt Count 262 X10^3/uL (150.0-450.0) 10/14/24 05:28 MPV 7.2 fL (7.4-11.0) L 10/14/24 05:28 Neut % (Auto) 59.5 % (42.0-75.0) 10/14/24 05:28 Lymph % (Auto) 22.1 % (21.0-51.0) 10/14/24 05:28 [place] % (Auto) 12.3 % (0.0-13.0) 10/14/24 05:28 Eos % (Auto) 5.0 % (0.9-2.9) H 10/14/24 05:28 Baso % (Auto) 1.1 % (0.2-1.0) H 10/14/24 05:28 Neut # (Auto) 3.3 x10^3/uL (2.2-4.8) 10/14/24 05:28 Lymph # (Auto) 1.2 X10^3/uL (1.3-2.9) L 10/14/24 05:28 [place] # (Auto) 0.7 x10^3/uL (0.3-0.8) 10/14/24 05:28 Eos # (Auto) 0.3 x10^3/uL (0.0-0.2) H 10/14/24 05:28 Baso # (Auto) 0.1 X10^3/uL (0.0-0.1) 10/14/24 05:28 Absolute Nucleated RBC 0.3 /100WBC 10/14/24 05:28 Sodium 139 mmol/L (136-145) 10/14/24 05:28 Corrected Sodium 140 mmol/L (136-145) 10/14/24 05:28 Potassium 3.6 mmol/L (3.5-5.1) 10/14/24 05:28 Chloride 102 mmol/L (98-107) 10/14/24 05:28 Carbon Dioxide 26.8 mmol/L (21-32) 10/14/24 05:28 BUN 11 mg/dL (7-18) 10/14/24 05:28 Creatinine 1.23 mg/dL (0.55-1.02) H 10/14/24 05:28 Est GFR (MDRD) Af Amer 53 (>60) L 10/14/24 05:28 Est GFR (MDRD) Non-Af 44 (>60) L 10/14/24 05:28 Glucose 162 mg/dL (65-99) H 10/14/24 05:28 POC Glucose (mg/dL) 173 mg/dL (65-99) H 10/14/24 05:18 Calcium 9.2 mg/dL (8.5-10.1) 10/14/24 05:28 Corrected Calcium 9.9 mg/dL (8.5-10.1) 10/14/24 05:28 Magnesium 2.0 mg/dL (2.0-2.9) 10/13/24 05:37 Total Bilirubin 0.50 mg/dL (0.2-1.0) 10/14/24 05:28 AST 19 Units/L (15-37) 10/14/24 05:28 ALT 23 Units/L (12-78) 10/14/24 05:28 Alkaline Phosphatase 127 Units/L (46-116) H 10/14/24 05:28 Total Protein 7.2 g/dL (6.4-8.2) 10/14/24 05:28 Albumin 3.1 g/dL (3.4-5.0) L 10/14/24 05:28 Globulin 4.1 g/dL (2.5-4.5) 10/14/24 05:28 Albumin/Globulin Ratio 0.8 Ratio (1.1-2.1) L 10/14/24 05:28 Assessment and Plan 1: 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 Sensitive to vancomycin and clindamycin. Continue vancomycin for now Same local care with irrigation with peroxide and application of Bactroban ointment.. 2: Peripheral vascular disease and confinement to bed. DVT prophylaxis. 3: Proper control of diabetes, medical consultation was obtained.
[2024-10-14] MEDS: ROCEPHIN VIAL 1 GRAM 1 G in NS 100 ML IV 100 ML IV SCH (10:41)
[2024-10-14] MEDS: NS 250 ML IV 250 ML IV ONE ×2 (10:41→20:28)
--- NOTE | 2024-10-14 10:51 | DR.CONSULT ---
CONSULT Consultation for Day of: Date: 10/13/24 Chief Complaint Chief Complaint: Diabetic toe ulcer and cellulitis Allergies Allergies Allergy/AdvReac Type Severity Reaction Status Date / Time tuberculin,PPD,multi-puncture Allergy Unknown Verified 10/12/24 11:10 History of Present Illness History of Present Illness: Patient is a 88-year-old female admitted for right big toe ulcer and cellulitis. Medicine consulted for chronic disease management. She does have a history of diabetes. X-ray of the right big toe showed severe osteopenia but no evidence of osteomyelitis. General surgery is primary and is providing wound care. Continue with IV antibiotics. Wound culture pending. She is currently on IV vancomycin. Restart home medications. Continue closely monitor and follow-up labs/imaging. Past Medical History Past Medical History: Anemia, Asthma, CHF, CVA, Depression, Diabetes, Dyslipidemia, GERD, Hypertension and Hypothyroidism Additional Medical History: DVT, Sleep Apnea, Depression, Chronic Sinusitis, Allergic Rhinitis, Constipation, Edema, UTI's, Pneumonia, Arthritis, Cataracts, Osteoporosis, Glaucoma, Ear Infections, Gastrointestinal Ulcer, Cardiac Arrhythmia, Muscle Weakness, Osteoporsis, Restless leg syndrome Past Surgical History Surgical History: Cholecystectomy Additional Surgical History: Sinus surgery Family History Family Medical History: Diabetes Mellitus, [place], Heart Failure and Hypertension Social History Does patient currently use any type of tobacco product: No Type of Tobacco Use: None Does any household member use tobacco: No Alcohol Use: None Drug Use: None Medications Home Medications: tuberculin,PPD,multi-puncture Allergy (Unknown, Verified 10/12/24 11:10) CONTINUE taking the following medications gentamicin 0.1 % topical cream 1 applic topical DAILY 10/13/24 [History] insulin regular human 100 unit/mL injection solution (Novolin R Regular U-100 Insulin) See Rx Instructions .Route .COMPLEX 10/13/24 [History] Review of Systems Constitutional: No Symptoms Reported Eyes: No Symptoms Reported Respiratory: No Symptoms Reported Cardiovascular: No Symptoms Reported Gastrointestinal: No Symptoms Reported Genitourinary: No Symptoms Reported Musculoskeletal: No Symptoms Reported Skin: Other (right big toe ulcer and cellulitis) Physical Exam Vital Signs: Vital Signs Temperature 97.7 F Temperature 97.7 F Pulse Rate [Left Brachial] 100 Pulse Rate [Left Brachial] 92 Respiratory Rate 18 Respiratory Rate 20 Blood Pressure [Left Arm] 134/76 Blood Pressure [Left Arm] 144/90 O2 Sat by Pulse Oximetry 97 O2 Sat by Pulse Oximetry 96 Oriented: Normal Eyes: Normal Respiratory: Clear Throughout Cardiovascular: Normal : Normal Auscultation: Bowel Sounds: Normal Palpation: Normal Tenderness: Normal Skin: Wound (right big toe ulcer and cellulitus) Speech Pattern: Clear Plan (1) Diabetic ulcer of toe: Status: Acute Qualifiers: Diabetes mellitus type: type 2 Laterality: right Non-pressure ulcer stage: unspecified non-pressure ulcer stage Qualified Code(s): E11.621 - Type 2 diabetes mellitus with foot ulcer; L97.519 - Non-pressure chronic ulcer of other part of right foot with unspecified severity (2) Cellulitis: Status: Acute Qualifiers: Site of cellulitis: unspecified site Qualified Code(s): L03.90 - Cellulitis, unspecified (3) Diabetes mellitus, type 2: Status: Chronic Qualifiers: Diabetes mellitus complication status: without complication Diabetes mellitus correction insulin use: with correction use Qualified Code(s): E11.9 - Type 2 diabetes mellitus without complications; Z79.4 - intermediate teacher (current) use of insulin (4) Hyperlipidemia: Status: Chronic Qualifiers: Hyperlipidemia type: mixed hyperlipidemia Qualified Code(s): E78.2 - Mixed hyperlipidemia (5) Hypothyroidism: Status: Chronic Qualifiers: Hypothyroidism type: acquired Qualified Code(s): E03.9 - Hypothyroidism, unspecified (6) Hypertension: Status: Chronic Qualifiers: Hypertension type: primary hypertension Qualified Code(s): I10 - Essential (primary) hypertension (7) Chronic kidney disease (CKD): Status: Chronic Qualifiers: Chronic kidney disease stage: unspecified stage Qualified Code(s): N18.9 - Chronic kidney disease, unspecified
--- NOTE | 2024-10-14 10:55 | PCM.PROG ---
Progress Note Progress Note for Day of Date of Exam: 10/14/24 Subjective Subjective: Patient is a 88-year-old female admitted for right big toe ulcer and cellulitis. Medicine consulted for chronic disease management. She does have a history of diabetes. X-ray of the right big toe showed severe osteopenia but no evidence of osteomyelitis. General surgery is primary and is providing wound care. This morning she is resting in bed. No acute events overnight. Labs/imaging: WBC 5.6, hemoglobin 14.2, platelets 262, sodium 140, potassium 3.6, creatinine 1.23, glucose 162. Wound culture positive for MRSA and Proteus mirabilis. She is currently on IV vancomycin. Will add IV Rocephin. Patient has been having some loose stools. Will check for C. difficile and order stool culture. Home medications have been resumed. Surgery recommends continuing IV antibiotics and Bactroban. Otherwise continue with current treatment plan. Continue closely monitor and follow-up labs/imaging. Past Medical Family Social History Past Med/Fam/Surg Hx: No changes since H&P Allergies: Allergies tuberculin,PPD,multi-puncture Allergy (Unknown, Verified 10/12/24 11:10) Review of Systems ROS changes noted: see HPI Vital Signs and I&O's Vital Signs: Vital Signs Temperature 97.7 F Temperature 97.7 F Pulse Rate [Left Brachial] 100 Pulse Rate [Left Brachial] 92 Respiratory Rate 18 Respiratory Rate 20 Blood Pressure [Left Arm] 134/76 Blood Pressure [Left Arm] 144/90 O2 Sat by Pulse Oximetry 97 O2 Sat by Pulse Oximetry 96 Intake and Output: Intake & Output 10/11/24 10/12/24 10/13/24 10/14/24 23:59 23:59 23:59 23:59 Intake Total 260 / 260 1655 / 1655 600 / 600 Output Total 3 / 3 Balance 260 / 260 1652 / 1652 600 / 600 Physical Exam Oriented: Normal Eyes: Normal Ear: Normal Nose: Normal Throat: Normal Respiratory: Normal Cardiovascular: Normal : Normal Auscultation: Bowel Sounds: Normal Tenderness: Normal Skin: Wound (right big toe ulcer and cellulitus) Speech Pattern: Clear Laboratory and Diagnostics 10/14/24 05:28 10/14/24 05:28 Labs: Laboratory WBC 5.6 X10^3/uL (3.6-10.0) 10/14/24 05:28 RBC 4.51 X10^6/uL (3.5-5.4) 10/14/24 05:28 Hgb 14.2 g/dL (12.0-16.0) 10/14/24 05:28 Hct 41.1 % (36.0-47.0) 10/14/24 05:28 MCV 91.1 fL (80.0-100.0) 10/14/24 05:28 MCH 31.4 pg (27.0-34.0) 10/14/24 05:28 MCHC 34.5 g/dL (33.0-35.0) 10/14/24 05:28 RDW 15.3 % (11.6-16.5) 10/14/24 05:28 Plt Count 262 X10^3/uL (150.0-450.0) 10/14/24 05:28 MPV 7.2 fL (7.4-11.0) L 10/14/24 05:28 Neut % (Auto) 59.5 % (42.0-75.0) 10/14/24 05:28 Lymph % (Auto) 22.1 % (21.0-51.0) 10/14/24 05:28 [place] % (Auto) 12.3 % (0.0-13.0) 10/14/24 05:28 Eos % (Auto) 5.0 % (0.9-2.9) H 10/14/24 05:28 Baso % (Auto) 1.1 % (0.2-1.0) H 10/14/24 05:28 Neut # (Auto) 3.3 x10^3/uL (2.2-4.8) 10/14/24 05:28 Lymph # (Auto) 1.2 X10^3/uL (1.3-2.9) L 10/14/24 05:28 [place] # (Auto) 0.7 x10^3/uL (0.3-0.8) 10/14/24 05:28 Eos # (Auto) 0.3 x10^3/uL (0.0-0.2) H 10/14/24 05:28 Baso # (Auto) 0.1 X10^3/uL (0.0-0.1) 10/14/24 05:28 Absolute Nucleated RBC 0.3 /100WBC 10/14/24 05:28 Sodium 139 mmol/L (136-145) 10/14/24 05:28 Corrected Sodium 140 mmol/L (136-145) 10/14/24 05:28 Potassium 3.6 mmol/L (3.5-5.1) 10/14/24 05:28 Chloride 102 mmol/L (98-107) 10/14/24 05:28 Carbon Dioxide 26.8 mmol/L (21-32) 10/14/24 05:28 BUN 11 mg/dL (7-18) 10/14/24 05:28 Creatinine 1.23 mg/dL (0.55-1.02) H 10/14/24 05:28 Est GFR (MDRD) Af Amer 53 (>60) L 10/14/24 05:28 Est GFR (MDRD) Non-Af 44 (>60) L 10/14/24 05:28 Glucose 162 mg/dL (65-99) H 10/14/24 05:28 POC Glucose (mg/dL) 229 mg/dL (65-99) H 10/14/24 10:39 Calcium 9.2 mg/dL (8.5-10.1) 10/14/24 05:28 Corrected Calcium 9.9 mg/dL (8.5-10.1) 10/14/24 05:28 Magnesium 2.0 mg/dL (2.0-2.9) 10/13/24 05:37 Total Bilirubin 0.50 mg/dL (0.2-1.0) 10/14/24 05:28 AST 19 Units/L (15-37) 10/14/24 05:28 ALT 23 Units/L (12-78) 10/14/24 05:28 Alkaline Phosphatase 127 Units/L (46-116) H 10/14/24 05:28 Total Protein 7.2 g/dL (6.4-8.2) 10/14/24 05:28 Albumin 3.1 g/dL (3.4-5.0) L 10/14/24 05:28 Globulin 4.1 g/dL (2.5-4.5) 10/14/24 05:28 Albumin/Globulin Ratio 0.8 Ratio (1.1-2.1) L 10/14/24 05:28 Plan (1) Diabetic ulcer of toe: Status: Acute Qualifiers: Diabetes mellitus type: type 2 Laterality: right Non-pressure ulcer stage: unspecified non-pressure ulcer stage Qualified Code(s): E11.621 - Type 2 diabetes mellitus with foot ulcer; L97.519 - Non-pressure chronic ulcer of other part of right foot with unspecified severity (2) Cellulitis: Status: Acute Qualifiers: Site of cellulitis: unspecified site Qualified Code(s): L03.90 - Cellulitis, unspecified (3) Diabetes mellitus, type 2: Status: Chronic Qualifiers: Diabetes mellitus complication status: without complication Diabetes mellitus jail insulin use: with jail use Qualified Code(s): E11.9 - Type 2 diabetes mellitus without complications; 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
[2024-10-14 19:15] LABS: CREATININE 1.28 mg/dL (0.55-1.02); VANCOMYCIN,TROUGH 9.3 ug/mL (15-20)
[2024-10-14] MEDS: VANCOMYCIN HCL ONE (20:28)
[2024-10-14] MEDS: VANCOMYCIN 1 GRAM PREMIX (ADDVANTAGE) 250 ML IV SCH (22:37)
[2024-10-15 06:21] LABS: BASOPHILS % (AUTO) 0.4 % (0.2-1.0); EOSINOPHILS # (AUTO) 0.4 x10^3/uL (0.0-0.2); EOSINOPHILS % (AUTO) 6.1 % (0.9-2.9); HEMOGLOBIN 14.3 g/dL (12.0-16.0); LYMPHOCYTES # (AUTO) 1.4 X10^3/uL (1.3-2.9); LYMPHOCYTES % (AUTO) 19.9 % (21.0-51.0); MEAN CORPUSCULAR HEMOGLOBIN 31.6 pg (27.0-34.0); MEAN CORPUSCULAR HGB CONC 34.8 g/dL (33.0-35.0); MEAN CORPUSCULAR VOLUME 90.8 fL (80.0-100.0); MEAN PLATELET VOLUME 7.2 fL (7.4-11.0); MONOCYTES # (AUTO) 0.9 x10^3/uL (0.3-0.8); NEUTROPHILS # (AUTO) 4.4 x10^3/uL (2.2-4.8); NEUTROPHILS % (AUTO) 61.6 % (42.0-75.0); PLATELET COUNT 273 X10^3/uL (150.0-450.0); RED BLOOD COUNT 4.51 X10^6/uL (3.5-5.4); RED CELL DISTRIBUTION WIDTH 15.4 % (11.6-16.5); WHITE BLOOD COUNT 7.1 X10^3/uL (3.6-10.0)
[2024-10-15 06:37] LABS: ALBUMIN 3.2 g/dL (3.4-5.0); CALCIUM 9.2 mg/dL (8.5-10.1); COR CA(FOR HYPOALB) 9.8 mg/dL (8.5-10.1); CREATININE 1.23 mg/dL (0.55-1.02); MAGNESIUM 1.8 mg/dL (2.0-2.9); POTASSIUM 3.6 mmol/L (3.5-5.1); TOTAL PROTEIN 7.4 g/dL (6.4-8.2)
[2024-10-15] MEDS ORDERED: CONSULT PHARMACY - POTASSIUM & MAGNESIUM XX SCH (07:00)
[2024-10-15] MEDS: MAG-OX TAB PO SCH (08:13)
[2024-10-15] MEDS: K-DUR TAB 20 MEQ PO SCH (08:17)
--- NOTE | 2024-10-15 09:36 | DR.PROGNOT ---
HOSPITAL PROGRESS NOTE Progress Note for Day of: Progress Note Date: 10/15/24 Chief Complaint Chief Complaint: Today Pt is awake and alert. improving celulitis RT big toe . X-ray of the right big toe showed severe osteopenia, no evidence of osteomyelitis. WBC 7.1 .and hemoglobin 14.2. BUN 15 and creatinine 1.37, GFR 47 albumin 3.1. Culture showed MRSA and sensitive to vancomycin and clindamycin. Patient is afebrile. To continue vancomycin.. Past Medical Family Social History Past Med/Fam/Surg Hx: No changes since H&P Allergies: Allergies tuberculin,PPD,multi-puncture Allergy (Unknown, Verified 10/12/24 11:10) Review Of Systems Changes in ROS: see HPI Vital Signs Vital Signs: Vital Signs Temperature 97.5 F Temperature 97.5 F Pulse Rate [Left Brachial] 92 Pulse Rate [Left Brachial] 79 Respiratory Rate 18 Respiratory Rate 20 Blood Pressure [Left Arm] 151/82 Blood Pressure [Left Arm] 193/91 Blood Pressure [Left Arm] 167/75 O2 Sat by Pulse Oximetry 97 O2 Sat by Pulse Oximetry 95 Physical Exam Oriented: Normal Eyes: Normal Ear: Normal Nose: Normal Throat: Normal Respiratory: Normal Cardiovascular: Normal : Normal GI:Auscultation: Normal GI:Palpation: Normal GI: Tenderness: Normal Skin: Wound (right big toe ulcer 2x1 cm with cellulitus of the whole toe .positive pulse with Doppler , posterior tibial.) Speech Pattern: Clear and Appropriate Laboratory and Diagnostics 10/15/24 05:35 10/15/24 05:35 Labs: Laboratory WBC 7.1 X10^3/uL (3.6-10.0) 10/15/24 05:35 RBC 4.51 X10^6/uL (3.5-5.4) 10/15/24 05:35 Hgb 14.3 g/dL (12.0-16.0) 10/15/24 05:35 Hct 41.0 % (36.0-47.0) 10/15/24 05:35 MCV 90.8 fL (80.0-100.0) 10/15/24 05:35 MCH 31.6 pg (27.0-34.0) 10/15/24 05:35 MCHC 34.8 g/dL (33.0-35.0) 10/15/24 05:35 RDW 15.4 % (11.6-16.5) 10/15/24 05:35 Plt Count 273 X10^3/uL (150.0-450.0) 10/15/24 05:35 MPV 7.2 fL (7.4-11.0) L 10/15/24 05:35 Neut % (Auto) 61.6 % (42.0-75.0) 10/15/24 05:35 Lymph % (Auto) 19.9 % (21.0-51.0) L 10/15/24 05:35 [place] % (Auto) 12.0 % (0.0-13.0) 10/15/24 05:35 Eos % (Auto) 6.1 % (0.9-2.9) H 10/15/24 05:35 Baso % (Auto) 0.4 % (0.2-1.0) 10/15/24 05:35 Neut # (Auto) 4.4 x10^3/uL (2.2-4.8) 10/15/24 05:35 Lymph # (Auto) 1.4 X10^3/uL (1.3-2.9) 10/15/24 05:35 [place] # (Auto) 0.9 x10^3/uL (0.3-0.8) H 10/15/24 05:35 Eos # (Auto) 0.4 x10^3/uL (0.0-0.2) H 10/15/24 05:35 Baso # (Auto) 0.0 X10^3/uL (0.0-0.1) 10/15/24 05:35 Absolute Nucleated RBC 0.1 /100WBC 10/15/24 05:35 Sodium 137 mmol/L (136-145) 10/15/24 05:35 Corrected Sodium 140 mmol/L (136-145) 10/15/24 05:35 Potassium 3.6 mmol/L (3.5-5.1) 10/15/24 05:35 Chloride 101 mmol/L (98-107) 10/15/24 05:35 Carbon Dioxide 24.0 mmol/L (21-32) 10/15/24 05:35 BUN 11 mg/dL (7-18) 10/15/24 05:35 Creatinine 1.23 mg/dL (0.55-1.02) H 10/15/24 05:35 Est GFR (MDRD) Af Amer 53 (>60) L 10/15/24 05:35 Est GFR (MDRD) Non-Af 44 (>60) L 10/15/24 05:35 Glucose 242 mg/dL (65-99) H 10/15/24 05:35 POC Glucose (mg/dL) 229 mg/dL (65-99) H 10/15/24 05:17 Calcium 9.2 mg/dL (8.5-10.1) 10/15/24 05:35 Corrected Calcium 9.8 mg/dL (8.5-10.1) 10/15/24 05:35 Magnesium 1.8 mg/dL (2.0-2.9) L 10/15/24 05:35 Total Bilirubin 0.40 mg/dL (0.2-1.0) 10/15/24 05:35 AST 20 Units/L (15-37) 10/15/24 05:35 ALT 23 Units/L (12-78) 10/15/24 05:35 Alkaline Phosphatase 130 Units/L (46-116) H 10/15/24 05:35 Total Protein 7.4 g/dL (6.4-8.2) 10/15/24 05:35 Albumin 3.2 g/dL (3.4-5.0) L 10/15/24 05:35 Globulin 4.2 g/dL (2.5-4.5) 10/15/24 05:35 Albumin/Globulin Ratio 0.8 Ratio (1.1-2.1) L 10/15/24 05:35 Vancomycin Trough 9.3 ug/mL (15-20) L 10/14/24 18:45 Assessment and Plan 1: 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 Continue vancomycin for now Same local care with irrigation with peroxide and application of Bactroban ointment.. 2: Peripheral vascular disease and confinement to bed. DVT prophylaxis. 3: Proper control of diabetes, medical consultation was obtained.
--- NOTE | 2024-10-15 12:22 | PCM.PROG ---
Progress Note Progress Note for Day of Date of Exam: 10/15/24 Subjective Subjective: Patient is a 88-year-old female admitted for right big toe ulcer and cellulitis. Medicine consulted for chronic disease management. She does have a history of diabetes. X-ray of the right big toe showed severe osteopenia but no evidence of osteomyelitis. General surgery is primary and is providing wound care. This morning she is sitting up in bed. No acute events overnight. Labs/imaging: WBC 7.1, hemoglobin 14.3, platelets 273, sodium 137, potassium 3.6, creatinine 1.23, glucose 242. Wound culture positive for MRSA and Proteus mirabilis. She is currently on IV vancomycin and IV Rocephin. Home medications have been resumed. Surgery recommends continuing IV antibiotics and Bactroban. Otherwise continue with current treatment plan. Continue closely monitor and follow-up labs/imaging. Past Medical Family Social History Past Med/Fam/Surg Hx: No changes since H&P Allergies: Allergies tuberculin,PPD,multi-puncture Allergy (Unknown, Verified 10/12/24 11:10) Review of Systems ROS changes noted: see HPI Vital Signs and I&O's Vital Signs: Vital Signs Temperature 97.5 F Pulse Rate [Left Brachial] 92 Respiratory Rate 18 Blood Pressure [Left Arm] 151/82 Blood Pressure [Left Arm] 193/91 O2 Sat by Pulse Oximetry 97 Intake and Output: Intake & Output 10/12/24 10/13/24 10/14/24 10/15/24 23:59 23:59 23:59 23:59 Intake Total 260 / 260 1655 / 1655 1663 / 1663 260 / 260 Output Total 3 / 3 Balance 260 / 260 1652 / 1652 1663 / 1663 260 / 260 Physical Exam Oriented: Normal Eyes: Normal Ear: Normal Nose: Normal Throat: Normal Respiratory: Normal Cardiovascular: Normal : Normal Auscultation: Bowel Sounds: Normal Tenderness: Normal Skin: Wound (right big toe ulcer 2x1 cm with cellulitus of the whole toe .positive pulse with Doppler , posterior tibial.) Speech Pattern: Clear and Appropriate Laboratory and Diagnostics 10/15/24 05:35 10/15/24 05:35 Labs: Laboratory WBC 7.1 X10^3/uL (3.6-10.0) 10/15/24 05:35 RBC 4.51 X10^6/uL (3.5-5.4) 10/15/24 05:35 Hgb 14.3 g/dL (12.0-16.0) 10/15/24 05:35 Hct 41.0 % (36.0-47.0) 10/15/24 05:35 MCV 90.8 fL (80.0-100.0) 10/15/24 05:35 MCH 31.6 pg (27.0-34.0) 10/15/24 05:35 MCHC 34.8 g/dL (33.0-35.0) 10/15/24 05:35 RDW 15.4 % (11.6-16.5) 10/15/24 05:35 Plt Count 273 X10^3/uL (150.0-450.0) 10/15/24 05:35 MPV 7.2 fL (7.4-11.0) L 10/15/24 05:35 Neut % (Auto) 61.6 % (42.0-75.0) 10/15/24 05:35 Lymph % (Auto) 19.9 % (21.0-51.0) L 10/15/24 05:35 [place] % (Auto) 12.0 % (0.0-13.0) 10/15/24 05:35 Eos % (Auto) 6.1 % (0.9-2.9) H 10/15/24 05:35 Baso % (Auto) 0.4 % (0.2-1.0) 10/15/24 05:35 Neut # (Auto) 4.4 x10^3/uL (2.2-4.8) 10/15/24 05:35 Lymph # (Auto) 1.4 X10^3/uL (1.3-2.9) 10/15/24 05:35 [place] # (Auto) 0.9 x10^3/uL (0.3-0.8) H 10/15/24 05:35 Eos # (Auto) 0.4 x10^3/uL (0.0-0.2) H 10/15/24 05:35 Baso # (Auto) 0.0 X10^3/uL (0.0-0.1) 10/15/24 05:35 Absolute Nucleated RBC 0.1 /100WBC 10/15/24 05:35 Sodium 137 mmol/L (136-145) 10/15/24 05:35 Corrected Sodium 140 mmol/L (136-145) 10/15/24 05:35 Potassium 3.6 mmol/L (3.5-5.1) 10/15/24 05:35 Chloride 101 mmol/L (98-107) 10/15/24 05:35 Carbon Dioxide 24.0 mmol/L (21-32) 10/15/24 05:35 BUN 11 mg/dL (7-18) 10/15/24 05:35 Creatinine 1.23 mg/dL (0.55-1.02) H 10/15/24 05:35 Est GFR (MDRD) Af Amer 53 (>60) L 10/15/24 05:35 Est GFR (MDRD) Non-Af 44 (>60) L 10/15/24 05:35 Glucose 242 mg/dL (65-99) H 10/15/24 05:35 POC Glucose (mg/dL) 239 mg/dL (65-99) H 10/15/24 11:04 Calcium 9.2 mg/dL (8.5-10.1) 10/15/24 05:35 Corrected Calcium 9.8 mg/dL (8.5-10.1) 10/15/24 05:35 Magnesium 1.8 mg/dL (2.0-2.9) L 10/15/24 05:35 Total Bilirubin 0.40 mg/dL (0.2-1.0) 10/15/24 05:35 AST 20 Units/L (15-37) 10/15/24 05:35 ALT 23 Units/L (12-78) 10/15/24 05:35 Alkaline Phosphatase 130 Units/L (46-116) H 10/15/24 05:35 Total Protein 7.4 g/dL (6.4-8.2) 10/15/24 05:35 Albumin 3.2 g/dL (3.4-5.0) L 10/15/24 05:35 Globulin 4.2 g/dL (2.5-4.5) 10/15/24 05:35 Albumin/Globulin Ratio 0.8 Ratio (1.1-2.1) L 10/15/24 05:35 Vancomycin Trough 9.3 ug/mL (15-20) L 10/14/24 18:45 Plan (1) Diabetic ulcer of toe: Status: Acute Qualifiers: Diabetes mellitus type: type 2 Laterality: right Non-pressure ulcer stage: unspecified non-pressure ulcer stage Qualified Code(s): E11.621 - Type 2 diabetes mellitus with foot ulcer; L97.519 - Non-pressure chronic ulcer of other part of right foot with unspecified severity (2) Cellulitis: Status: Acute Qualifiers: Site of cellulitis: unspecified site Qualified Code(s): L03.90 - Cellulitis, unspecified (3) Diabetes mellitus, type 2: Status: Chronic Qualifiers: Diabetes mellitus complication status: without complication Diabetes mellitus detention insulin use: with detention use Qualified Code(s): E11.9 - Type 2 diabetes mellitus without complications; 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
[2024-10-15 19:40] LABS: CREATININE 1.23 mg/dL (0.55-1.02); VANCOMYCIN,TROUGH 11.3 ug/mL (15-20)
[2024-10-15] MEDS: VANCOMYCIN IV *PREMIX 750 mg/150 ML BAG 750 MG/150 ML PIGGYBACK IV SCH (20:16)
[2024-10-15] MEDS: VANCOMYCIN HCL 1 G in D5W 250 ML IV 250 ML IV SCH (21:00)
[2024-10-15] MEDS: PHARMACY COMMENT IV ONE (21:19)
[2024-10-15] MEDS: VISTARIL PO PRN (23:14)
[2024-10-16 06:05] LABS: BASOPHILS # (AUTO) 0.1 X10^3/uL (0.0-0.1); BASOPHILS % (AUTO) 0.8 % (0.2-1.0); EOSINOPHILS # (AUTO) 0.4 x10^3/uL (0.0-0.2); EOSINOPHILS % (AUTO) 4.9 % (0.9-2.9); HEMOGLOBIN 15.2 g/dL (12.0-16.0); LYMPHOCYTES # (AUTO) 1.3 X10^3/uL (1.3-2.9); LYMPHOCYTES % (AUTO) 17.5 % (21.0-51.0); MEAN CORPUSCULAR HEMOGLOBIN 31.4 pg (27.0-34.0); MEAN CORPUSCULAR HGB CONC 34.6 g/dL (33.0-35.0); MEAN CORPUSCULAR VOLUME 90.6 fL (80.0-100.0); MEAN PLATELET VOLUME 6.9 fL (7.4-11.0); MONOCYTES # (AUTO) 0.9 x10^3/uL (0.3-0.8); MONOCYTES % (AUTO) 12.4 % (0.0-13.0); NEUTROPHILS # (AUTO) 4.7 x10^3/uL (2.2-4.8); NEUTROPHILS % (AUTO) 64.4 % (42.0-75.0); PLATELET COUNT 292 X10^3/uL (150.0-450.0); RED BLOOD COUNT 4.85 X10^6/uL (3.5-5.4); RED CELL DISTRIBUTION WIDTH 15.6 % (11.6-16.5); WHITE BLOOD COUNT 7.3 X10^3/uL (3.6-10.0)
[2024-10-16 08:25] LABS: BLOOD UREA NITROGEN 14 mg/dL (7-18); CALCIUM 10.3 mg/dL (8.5-10.1); CARBON DIOXIDE 21.2 mmol/L (21-32); CHLORIDE 103 mmol/L (98-107); COR NA(FOR HYPERGLY) 142 mmol/L (136-145); CREATININE 1.28 mg/dL (0.55-1.02); GLUCOSE 156 mg/dL (65-99); POTASSIUM 3.4 mmol/L (3.5-5.1); SODIUM 141 mmol/L (136-145); eGFR NON BLACK RACES 42 (>60)
[2024-10-16 08:29] LABS: MAGNESIUM 2.1 mg/dL (2.0-2.9)
[2024-10-16] MEDS: TRESIBA U-100 INSULIN SC SCH (10:07)
[2024-10-16 13:14] LABS: ALANINE AMINOTRANSFERASE 23 Units/L (12-78); ALBUMIN 3.4 g/dL (3.4-5.0); ALKALINE PHOSPHATASE 128 Units/L (46-116); ASPARTATE AMINO TRANSFERASE 24 Units/L (15-37); TOTAL PROTEIN 7.7 g/dL (6.4-8.2)
[2024-10-16 14:26] VITALS: BP 129/72; PULSE 88; RESP 20; TEMP 98.1; O2SAT 96
[2024-10-18] MEDS ORDERED: CATAPRES-TTS-3 TD SCH (12:07)
== END 2024-10-16 14:30 | DRG 603 ==
LOC: MED/SURG → OBSVTOIN 17:00
PROVIDERS: ADMIT Surgery; ATTEND Surgery